=== PATIENT | female | born 1945 | race Two or more races ===

== ENCOUNTER 2022-11-17 12:26 | Outpatient (OUT) | payer MEDICARE, BC, SELFPAY ==
--- NOTE | 2022-11-17 12:45 | US_ITS ---
[address] [address] Patient Name: THI LINDSEY MRN: [id number] date: 1945 Sex: F Assigned Patient Location: US Current Patient Location: US Accession/Order Number: [id number] Exam Date: 11/17/2022 12:48 Report Date: 11/18/2022 06:31 At the request of: WEN FIGUEROA Procedure: US thyroid EXAMINATION: US thyroid HISTORY: Thyroid Nodule E04.1 COMPARISON: No relevant comparison available. FINDINGS: RIGHT LOBE: Homogeneous echotexture containing a 5 mm TR 4 nodule within superior pole. Lobe size: 4.0 x 1.7 x 1.3 cm LEFT LOBE: Homogeneous echotexture containing a 3 mm TR 4 nodule within superior pole and a 7 mm TR 2 nodule within mid body. Lobe size: 4.1 x 1.2 x 1.6 cm ISTHMUS: Normal size and echotexture. Thickness: 2 mm IMPRESSION: 1. Homogeneous thyroid gland containing a few small, not overtly suspicious nodules. Consider follow-up imaging in 2 years. TR4 (moderately suspicious): If > 1.0 cm Follow-up ultrasound in 1, 2, 3, and 5 years. If > 1.5 cm fine needle aspiration (FNA). TI-RADS 2: Benign nodules. Noticeably benign pattern (0% risk of malignancy) Electronically authenticated by: JAMIR SANCHEZ Date: 11/18/2022 06:31
[2022-11-17 14:31] LABS: Free T4 0.71 ng/dL (0.76-1.46)
[2022-11-17 14:35] LABS: Thyroid Stimulating Hormone 1.177 uIU/mL (0.358-3.740)
== END 2022-11-17 12:27 ==
LOC: US 12:26
PROVIDERS: PCP Nurse Practitioner Primary Care; Visit Provider Nurse Practitioner Primary Care
DX: E04.1 Nontoxic single thyroid nodule (principal)
CPT/HCPCS: 36415; 76536; 84439; 84443

== ENCOUNTER 2022-12-29 08:35 | Outpatient (OUT) | payer MEDICARE, BC, SELFPAY | END 2022-12-29 08:36 | disposition home or self-care (01) | LOC: HEMC 08:45 | PROVIDERS: PCP Nurse Practitioner Primary Care; Visit Provider Internal Medicine Hematology & Oncology | DX: C50.411 Malignant neoplasm of upper-outer quadrant of right female breast (principal); K90.9 Intestinal malabsorption, unspecified; D50.9 Iron deficiency anemia, unspecified | CPT/HCPCS: G0463 ==

== ENCOUNTER 2023-01-04 09:03 | Outpatient (RCR) | payer MEDICARE, BC, SELFPAY ==
[2023-01-04 08:55] VITALS: BP 124/77; PULSE 64; RESP 16; TEMP 36.6; O2SAT 94
--- NOTE | 2023-01-04 09:15 | PC.NURSE ---
0855: Pt. to [facility] amb. accompanied by . Seated in recliner. VSS. Relays history of extreme fatigue. Denies c/o pain, dyspnea or n/v. Using aseptic technique, #22 gauge IV initiated to left hand on first attempt without difficulty. Flushes easily without edema. Pt. tolerated without c/o. Awaiting med from pharmacy.
--- NOTE | 2023-01-04 09:34 | PC.NURSE ---
0923: IV Injectafer initiated at this time. Pt. given water and pillow. 0934: Pt. without c/o. Denies needs.
--- NOTE | 2023-01-04 09:48 | PC.NURSE ---
0944: IV Injectafer completed at this time without s&s of adverse reaction. IV d/c'd, pressure to site. 0945: Pt. d/c'd to home amb. with .
[2023-01-11 12:52] VITALS: BP 135/68; PULSE 88; RESP 18; TEMP 36.6; O2SAT 94
== END 2023-01-11 23:59 | disposition home or self-care (01) ==
LOC: INF 09:03
PROVIDERS: PCP Nurse Practitioner Primary Care; Visit Provider Internal Medicine Hematology & Oncology
DX: D50.9 Iron deficiency anemia, unspecified (principal); C50.411 Malignant neoplasm of upper-outer quadrant of right female breast; K90.9 Intestinal malabsorption, unspecified
CPT/HCPCS: 96365; 96366; J1439

== ENCOUNTER 2023-01-18 14:04 | Outpatient (OUT) | payer MEDICARE, BC, SELFPAY | END 2023-01-18 14:05 | disposition home or self-care (01) | LOC: PST 14:07 | PROVIDERS: PCP Nurse Practitioner Primary Care; Visit Provider Surgery | DX: Z01.818 Encounter for other preprocedural examination (principal); D50.9 Iron deficiency anemia, unspecified ==

== ENCOUNTER 2023-01-26 11:08 | Day surgery (SDC) | payer MEDICARE, BC, SELFPAY ==
[2023-01-26 11:54] VITALS: BP 150/81; PULSE 68; RESP 16; TEMP 36.6; O2SAT 97; BMI 35.3
[2023-01-26] MEDS: LACTATED RINGER'S SOLUTION 1,000 ML 50 ML IV (12:07)
[2023-01-26 13:10] VITALS: BP 114/65; PULSE 65; RESP 16; O2SAT 95
[2023-01-26 13:30] VITALS: BP 109/61; PULSE 71; RESP 16; O2SAT 98
--- NOTE | 2023-01-26 13:34 | PM.GSPRC ---
Date of procedure: 01/26/23 Indications for Procedure: This patient is a 77-year-old female who was recently diagnosed with significant iron deficiency anemia. She was initially referred for upper endoscopy and colonoscopy.the risks benefits options and potential complications of the procedure were discussed in detail with her and she agreed to proceed and consent was signed. Pre-op diagnosis: iron deficiency anemia Post-op diagnosis: other (#1 gastric ulcers, hiatal hernia #2 diverticulosis) Procedure: #1 EGD with biopsy #2 colonoscopy, incomplete Anesthesia: MAC Surgeon: Randall Hale Procedure Summary: The patient was brought to the endoscopy suite and placed in the supine upright position. Under MAC by block was placed. The fiberoptic endoscope was passed through the oropharynx into the esophagus. This was easily advanced into the stomach. The stomach was insufflated. Readily identified in the prepyloric region was a small ulceration. There is no blood or bleeding noted. The endoscope was then passed through the pylorus into the duodenum. The 1st and 2nd portions of the duodenum were unremarkable. The endoscope was then withdrawn into the stomach and retroflexed. Near the fundus of the stomach a larger similar appearing ulcer was also noted. This was also noted to have no bleeding. Patient did have a moderate size hiatal hernia also. Antral biopsies were then obtained ?2 for H. pylori. Both sites were hemostatic following this. The gastroesophageal junction. Grossly normal. The stomach was decompressed. The remainder of the esophagus appeared unremarkable on final trial endoscope and this portion of the procedure was ended. The patient was now placed in left lateral decubitus position for colonoscopy. With continued MAC the fiberoptic colonoscope was introduced into the rectum. This was subsequently advanced. At approximately 40-50 cm there is noted to be extensive diverticulosis as well as significant tortuosity. Despite multiple attempts with manipulation of the colonoscope abdominal pressure patient position changes and was unable to traverse this area and therefore further attempts I felt were contraindicated with the potential for colonic injury. I did not see any blood or bleeding in the segment of colon examined. Gradual thrombo-colonoscope was undertaken. Other than diverticular versus the remainder of the descending colon as well as anorectal canal were unremarkable. The patient tolerated the procedures well and was transferred to the recovery area in stable condition. Estimated blood loss (mL): 1 Specimens: antral biopsy ?2 Complications: No
== END 2023-01-26 13:50 | disposition home or self-care (01) ==
PROVIDERS: PCP Nurse Practitioner Primary Care; Visit Provider Surgery
PROC: (CPT 43239; principal; 2023-01-26 13:30)
DX: D50.9 Iron deficiency anemia, unspecified (principal); K29.50 Unspecified chronic gastritis without bleeding; Z79.82 Long term (current) use of aspirin; I10 Essential (primary) hypertension; Z85.3 Personal history of malignant neoplasm of breast; Z90.710 Acquired absence of both cervix and uterus; K57.30 Diverticulosis of large intestine without perforation or abscess without bleeding; K25.9 Gastric ulcer, unspecified as acute or chronic, without hemorrhage or perforation; K44.9 Diaphragmatic hernia without obstruction or gangrene
CPT/HCPCS: 43239; 45330; 88305; 88342; J2704

== ENCOUNTER 2023-02-05 08:04 | Outpatient (OUT) | payer MEDICARE, BC, SELFPAY ==
[2023-02-05 08:24] LABS: Basophils Percent Auto 0.7 % (0.2-2.0); Eosinophils Absolute Auto 0.3 10^3/uL (0.0-0.7); Eosinophils Percent Auto 4.3 % (0.9-7.0); Hematocrit 31.3 % (36.0-48.0); Hemoglobin 10.1 g/dL (12.0-16.0); Immature Granulocytes Abs Auto 0.01 10^3/uL (0.00-0.03); Immature Granulocytes Pct Auto 0.2 % (0.0-0.5); Lymphocytes Absolute Auto 1.6 10^3/uL (1.2-3.8); Lymphocytes Percent Auto 27.4 % (20.5-60.0); Mean Corpuscular HGB Conc 32.3 g/dL (29.9-35.2); Mean Corpuscular Hemoglobin 30.7 pg (26.7-34.0); Mean Corpuscular Volume 95.1 fL (81.0-99.0); Mean Platelet Volume 9.3 fL (9.5-13.5); Monocytes Absolute Auto 0.6 10^3/uL (0.3-0.8); Monocytes Percent Auto 10.1 % (1.7-12.0); Neutrophils Absolute Auto 3.4 10^3/uL (1.4-6.5); Neutrophils Percent Auto 57.3 % (43.0-75.0); Platelet Count 215 10^3/uL (150-450); Red Blood Count 3.29 10^6/uL (4.20-5.40); Red Cell Distribution Width 20.3 % (11.0-15.0); White Blood Count 5.9 10^3/uL (4.0-11.0)
[2023-02-05 08:39] LABS: Anion Gap 14.5; BUN Creatinine Ratio 17.3; Carbon Dioxide 28.3 mmol/L (21.0-32.0); Chloride 101 mmol/L (98-107); Estimated GFR (African America >60 (>=60); Estimated GFR (Non-African Ame 51 (>=60); Glucose 77 mg/dL (74-106); Potassium 3.8 mmol/L (3.5-5.1); Sodium 140 mmol/L (136-145)
== END 2023-02-05 08:05 | disposition home or self-care (01) ==
LOC: LAB 08:06
PROVIDERS: PCP Nurse Practitioner Primary Care
DX: R06.09 Other forms of dyspnea (principal); I27.20 Pulmonary hypertension, unspecified
CPT/HCPCS: 36415; 80048; 85025

== ENCOUNTER 2023-02-12 08:54 | Outpatient (OUT) | payer MEDICARE, BC, SELFPAY ==
[2023-02-12 10:26] LABS: Percent Iron Saturation 31.2 %
== END 2023-02-12 08:55 | disposition home or self-care (01) ==
LOC: LAB 09:03
PROVIDERS: PCP Nurse Practitioner Primary Care; Visit Provider Internal Medicine Hematology & Oncology
DX: C50.411 Malignant neoplasm of upper-outer quadrant of right female breast (principal); D50.9 Iron deficiency anemia, unspecified; K90.9 Intestinal malabsorption, unspecified
CPT/HCPCS: 36415; 82728; 83540; 83550

== ENCOUNTER 2023-02-16 08:36 | Outpatient (RCR) | payer MEDICARE, BC, SELFPAY | END 2023-03-13 23:59 | disposition home or self-care (01) | LOC: INF 08:36 | PROVIDERS: PCP Nurse Practitioner Primary Care; Visit Provider Internal Medicine Hematology & Oncology | DX: C50.411 Malignant neoplasm of upper-outer quadrant of right female breast (principal); D50.9 Iron deficiency anemia, unspecified; K90.9 Intestinal malabsorption, unspecified | CPT/HCPCS: G0463 ==

== ENCOUNTER 2023-02-24 07:43 | Outpatient (OUT) | payer MEDICARE, BC, SELFPAY ==
--- NOTE | 2023-02-24 07:46 | MM_ITS ---
Patient: THI LINDSEY Exam Date: 02/24/2023 : 1945 Gender:F Ordering : WEN BowmanCesar HENRY Admission #: [id number] Family : Order #: [id number] CLICK HERE TO VIEW EXAM RADIOLOGY REPORT PROCEDURE: MM TOMOSYNTHESIS SCREENING BI COMPARISON: MG MAMM GONZALEZ DIAG W CAD DIG, 11/23/2018. MG MAMM SCREEN 3D GONZALEZ CAD, 03/05/2022. INDICATIONS: Screening Calculator Name NCI Breast Cancer Risk Assessment Tool 5 Year Breast Cancer Risk n/a% Lifetime Breast Cancer Risk n/a% Personal Breast Cancer Yes, 2013 Personal Ovarian Cancer No Treatments lumpectomy, radiation and chemotherapy Family Cancers Grandmother-paternal with breast cancer at age 76; Father with unknown cancer at age ~72. LOCATION: [facility] BREAST COMPOSITION: Scattered areas fibroglandular density. FINDINGS: DIAGNOSTIC CATEGORY 2--BENIGN FINDING. NO CHANGE FROM COMPARISON. Scattered benign-appearing calcifications are present. Scattered benign-appearing lymph nodes are present. RIGHT BREAST: No significant suspicious finding. Asymmetrically small. Area of architectural distortion calcification upper outer quadrant, stable, postprocedural changes are favored. LEFT BREAST: No significant suspicious finding. RECOMMENDATIONS: ROUTINE MAMMOGRAM AND CLINICAL EVALUATION IN 12 MONTHS. PLEASE NOTE: A NORMAL MAMMOGRAM DOES NOT EXCLUDE THE POSSIBILITY OF BREAST CANCER. A CLINICALLY SUSPICIOUS PALPABLE LUMP SHOULD BE BIOPSIED. Dictated by: Michael Arndt MD on 02/24/2023 at 09:13 Approved by: Michael Arndt MD on 02/24/2023 at 09:15
== END 2023-02-24 07:44 | disposition home or self-care (01) ==
LOC: MAMMO 07:43
PROVIDERS: PCP Nurse Practitioner Primary Care; Visit Provider Nurse Practitioner Primary Care
DX: Z12.31 Encounter for screening mammogram for malignant neoplasm of breast (principal); Z80.9 Family history of malignant neoplasm, unspecified; Z80.3 Family history of malignant neoplasm of breast
CPT/HCPCS: 77063; 77067

== ENCOUNTER 2023-05-11 07:31 | Outpatient (OUT) | payer MEDICARE, BC, SELFPAY ==
[2023-05-11 07:59] LABS: Basophils Percent Auto 0.3 % (0.2-2.0); Eosinophils Absolute Auto 0.2 10^3/uL (0.0-0.7); Eosinophils Percent Auto 3.6 % (0.9-7.0); Hematocrit 32.8 % (36.0-48.0); Hemoglobin 10.6 g/dL (12.0-16.0); Lymphocytes Absolute Auto 1.2 10^3/uL (1.2-3.8); Lymphocytes Percent Auto 19.5 % (20.5-60.0); Mean Corpuscular HGB Conc 32.3 g/dL (29.9-35.2); Mean Corpuscular Hemoglobin 32.9 pg (26.7-34.0); Mean Corpuscular Volume 101.9 fL (81.0-99.0); Mean Platelet Volume 9.8 fL (9.5-13.5); Monocytes Absolute Auto 0.4 10^3/uL (0.3-0.8); Monocytes Percent Auto 7.3 % (1.7-12.0); Neutrophils Absolute Auto 4.1 10^3/uL (1.4-6.5); Neutrophils Percent Auto 69.3 % (43.0-75.0); Platelet Count 218 10^3/uL (150-450); Red Blood Count 3.22 10^6/uL (4.20-5.40); Red Cell Distribution Width 12.2 % (11.0-15.0); White Blood Count 5.9 10^3/uL (4.0-11.0)
[2023-05-11 08:16] LABS: Erythrocyte Sedimentation Rate 37 mm/hr (<=30)
[2023-05-11 09:19] LABS: Alanine Aminotransferase 23 U/L (14-59); Alkaline Phosphatase 90 U/L (46-116); Anion Gap 11.3; Aspartate Amino Transferase 19 U/L (15-37); BUN Creatinine Ratio 17.9; Bilirubin Total 0.5 mg/dL (0.2-1.0); Chloride 103 mmol/L (98-107); Estimated GFR (African America >60 (>=60); Estimated GFR (Non-African Ame 57 (>=60); Glucose 99 mg/dL (74-106); Lactate Dehydrogenase 165 U/L (81-234); Potassium 4.3 mmol/L (3.5-5.1); Sodium 140 mmol/L (136-145); Total Protein 7.1 g/dL (6.4-8.2)
[2023-05-11 09:20] LABS: Albumin Globulin Ratio 1.1; Albumin Level 3.7 g/dL (3.4-5.0); Globulin 3.4 g/dL
[2023-05-11 09:21] LABS: C Reactive Protein 0.73 mg/dL (<=0.30)
[2023-05-11 11:55] LABS: Percent Iron Saturation 31.8 %
[2023-05-12 15:09] LABS: Hgb A 97.7 % (96.4-98.8); Hgb A2 2.3 % (1.8-3.2)
[2023-08-02 14:29] LABS: Reticulocyte Count 1.86 % (0.60-3.10)
== END 2023-05-11 07:32 | disposition home or self-care (01) ==
LOC: LAB 07:32
PROVIDERS: PCP Nurse Practitioner Primary Care; Visit Provider Internal Medicine Hematology & Oncology
DX: C50.411 Malignant neoplasm of upper-outer quadrant of right female breast (principal); D64.9 Anemia, unspecified; D50.9 Iron deficiency anemia, unspecified; K90.9 Intestinal malabsorption, unspecified
CPT/HCPCS: 36415; 80053; 82607; 82728; 83540; 83550; 83615; 85025; 85045; 85652; 86140

== ENCOUNTER 2023-05-18 07:44 | Outpatient (RCR) | payer MEDICARE, BC, SELFPAY | END 2023-05-18 09:44 | disposition home or self-care (01) | LOC: INF 07:44 | PROVIDERS: PCP Nurse Practitioner Primary Care; Visit Provider Internal Medicine Hematology & Oncology | DX: D50.9 Iron deficiency anemia, unspecified (principal); D64.9 Anemia, unspecified; K90.9 Intestinal malabsorption, unspecified; Z85.3 Personal history of malignant neoplasm of breast; Z85.42 Personal history of malignant neoplasm of other parts of uterus; Z90.711 Acquired absence of uterus with remaining cervical stump | CPT/HCPCS: G0463 ==

== ENCOUNTER 2023-08-02 06:15 | Outpatient (OUT) | payer MEDICARE, SELFPAY ==
--- OUTSIDE RECORDS SUMMARY | 2023-08-02 06:21 | XMS_ITS | CCD ---
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 Name Role Phone KENZIE ALMONTE Unavailable Unavailable SUNDHEIMER, MEGHANN B Unavailable Unavailable SUNDHEIMER, MEGHANN B Unavailable Unavailable BRIDGER PARADA Unavailable Unavailabl e LAKSHMIPATHY ., NARIZZYATH Attending Natasha vailable SHAMMO, ADI Primary Care Unavailable LAKSHMIPATHY ., DAINA Admitting Natasha vailable LAKSHMIPATHY ., DAINA Consulting Natasha vailable WILDER ., DR BEAU Galvan Admitting Unavailable MCLEAN ., DARION Consulting Unavailable SHAMMO, ADI Primary Care Unavailable WILDER ., DR BEAU Galvan Attending Unavailable WILDER ., DR BEAU Galvan Attending Unavailable WILDER ., DR BEAU Galvan Admitting Unavailable SHAMMO, ADI Primary Care Unavailable WILDER ., DR BEAU Galvan Consulting Unavailable WILDER ., DR BEAU Galvan Attending Unavailable WILDER ., DR BEAU Galvan Admitting Unavailable SHAMMO, ADI Primary Care Unavailable WILDER ., DR BEAU Galvan Consulting Unavailable MCLEAN ., DARION Consulting Unavailable SHAMMO, ADI Attending Unavailable SHAMMO, ADI Admitting Unavailable SHAMMO, ADI Primary Care Unavailable ZIEBER, DR JAMIR Amaya Consulting Unavailable TERRENCE ALBERTO Consulting Unavailable SHAMMO, ADI Consulting Unavailable SHAMMO, ADI Consulting Unavailable SHAMMO, ADI Attending Unavailable SHAMMO, ADI Admitting Unavailable SHAMMO, ADI Primary Care Unavailable WILDER ., DR BEAU Galvan Admitting Unavailable WILDER ., DR BEAU Galvan Consulting Unavailable WILDER ., DR BEAU Galvan Attending Unavailable SHAMMO, ADI Primary Care Unavailable SHAMMO, ADI Primary Care Unavailable SHAMMO, ADI Attending Unavailable SHAMMO, ADI Admitting Unavailable ZIEBER, DR JAMIR Amaya Consulting Unavailable SHAMMO, ADI Consulting Unavailable MISC, DR CABRERA Attending Unavailable FRANKLIN, DR JOSE RAFAEL Mendes Consulting Unavailable [facility] [place] Admitting Unavailable [facility] [place] Consulting Unavailable TINA ., DR BEAU Galvan Attending Unavailable TINA ., DR BEAU Galvan Admitting Unavailable [facility] Unavailable TINA ., DR BEAU Galvan Consulting Unavailable TINA ., DR BEAU Galvan Attending Unavailable TINA ., DR BEAU Galvan Admitting Unavailable [facility] Unavailable TINA ., DR BEAU Galvan Consulting Unavailable TINA ., DR BEAU Galvan Admitting Unavailable WILDER ., DR BEAU Galvan Attending Unavailable WILDER ., DR BEAU Galvan Consulting Unavailable [facility] Care Unavailable NKECHI ALLEN Consulting Unavailable [facility], [place] Primary Care Provider Allergies Allergy Classification Reported Allergen(s) Allergy Type Date of Onset Reaction(s) Facility (1 source) Hay Fever And Allergy Relief Propensity to adverse reactions to drug 06-20-2014 [facility] (1 source) Other Propensity to adverse reactions 12-24-2015 [facility] Medications Current Medications Medication Drug Class(es) Dates Sig (Normalized) Sig (Original) ALPRAZolam 0.25 mg oral tablet (1 source) Benzodiazepine Start: 11-14-2020 take 1 tablet by mouth once daily ALPRAZolam (XANAX) 0.25 mg tablet Take 1 tablet (0.25 mg total) by mouth nightly. 0 11/14/2020 Active ARIPiprazole 2 mg oral tablet (1 source) Atypical Antipsychotic take 1 tablet by mouth in the morning ARIPiprazole (ABILIFY) 2 mg tablet Take 1 tablet (2 mg total) by mouth in the morning. 0 Active hydroCHLOROthiazide 25 mg / lisinopril 20 mg oral tablet (2 sources) Thiazide Diuretic, Angiotensin Converting Enzyme Inhibitor Start: 03-05-2023 take 0.5 tablet by mouth once in the morning lisinopril-hydro CHLOROthiazide (PRINZIDE,ZESTOR ETIC) 20-25 mg per tablet Take 0.5 tablets by mouth in the morning and 0.5 tablets before bedtime. 90 tablet 3 03/05/2023 Active Start: 12-11-2022 take 10-12.5 mg by mouth once at bedtime lisinopril-hydroCHLOROthiazide (PRINZIDE,ZESTORETIC) 10-12.5 mg per tablet Take 1 tablet by mouth in the morning and at bedtime. 180 tablet 3 12/11/2022 Active lansoprazole 15 mg disintegrating oral tablet (1 source) Proton Pump Inhibitor take 1 tablet by mouth in the morning lansoprazole (PREVACID SOLUTAB) 15 mg disintegrating tablet Indications: heartburn Take 1 tablet (15 mg total) by mouth in the morning. Indications: heartburn. 0 Active levocetirizine dihydrochloride 5 mg oral tablet (1 source) Histamine-1 Receptor Antagonist take 1 tablet by mouth once daily levocetirizine (XYZAL) 5 mg tablet Take 1 tablet (5 mg total) by mouth nightly. 0 Active besxnudh-mpqf-YO-calciu m &mins (THERAGRAN-M) 9 mg iron-400 mcg tablet (1 source) dogvygti-xtlp-UX -calc ium &mins (THERAGRAN-M) 9 mg iron-400 mcg tablet Indications: mineral deficiency , vitamin deficiency Take 1 tablet by mouth in the morning. Indications: lack in minerals, vitamin deficiency. 0 Active pravastatin sodium 20 mg oral tablet (1 source) HMG-CoA Reductase Inhibitor Start: 09-18-19 22 pravastatin (PRAVACHOL) 20 mg tablet Indications: Dyslipidemia TAKE 1 TABLET DAILY 90 tablet 3 09/17/2021 Active traMADol hydrochloride 50 mg oral tablet (1 source) Opioid Agonist take 1 tablet by mouth every six hours as needed for pain traMADoL (ULTRAM) 50 mg tablet Take 1 tablet (50 mg total) by mouth every 6 (six) hours as needed for pain. 0 Active vitamin e 90 mg oral capsule (1 source) take 2 capsules by mouth in the morning vitamin E 200 units capsule Indications: vitamin E deficiency Take 2 capsules (400 Units total) by mouth in the morning. Indications: deficiency of vitamin E. 0 Active Problems Active Problems Problem Classification Problem Date Documented Date Episodic/Chronic Cancer of breast (1 source) Malignant neoplasm of female breast; Translations: [Malignant neoplasm of unspecified site of unspecified female breast] Onset: 01-21-2016 01-21-2016 Chronic Cataract (1 source) Artificial lens present; Translations: [Presence of intraocular lens] Onset: 05-26-2016 05-26-2016 Chronic Conditions associated with dizziness or vertigo (1 source) Dizziness and giddiness; Translations: [DIZZINESS AND GIDDINESS] Onset: 11-06-2022 Episodic Disorders of lipid metabolism (1 source) Dyslipidemia; Translations: [Hyperlipidemia, unspecified] Onset: 12-24-2015 12-24-2015 Chronic Esophageal disorders (1 source) Gastro-esophageal reflux disease with esophagitis; Translations: [Gastroesophageal reflux disease with esophagitis] Onset: 12-05-2016 12-05-2016 Chronic Essential hypertension (2 sources) Essential (primary) hypertension; Translations: [Benign essential hypertension] Onset: 12-24-2015 12-24-2015 Chronic Headache; including migraine (1 source) Tension-type headache; Translations: [Tension-type headache, unspecified, not intractable] Onset: 02-27-2018 02-27-2018 Chronic Malaise and fatigue (1 source) Chronic fatigue, unspecified; Translations: [CHRONIC FATIGUE UNSPECIFIED] Onset: 11-06-2022 Chronic Mood disorders (1 source) Depressive disorder; Translations: [Depressive disorder] Onset: 10-01-2017 10-01-2017 Chronic Other acquired deformities (1 source) Other forms of scoliosis, lumbar region; Translations: [OTHER FORMS SCOLIOSIS LUMBAR REGION] Onset: 06-25-2022 Chronic Other acquired deformities (1 source) Scoliosis of lumbar spine; Translations: [Scoliosis, unspecified] Onset: 06-01-2022 06-01-2022 Chronic Other connective tissue disease (1 source) Other muscle spasm; Translations: [OTHER MUSCLE SPASM] Onset: 09-30-2022 Episodic Other lower respiratory disease (4 sources) Other forms of dyspnea; Translations: [OTHER FORMS OF DYSPNEA] Onset: 11-05-2022 Episodic Other lower respiratory disease (1 source) Orthopnea; Translations: [ORTHOPNEA] Onset: 11-06-2022 Episodic Other nervous system disorders (1 source) Other chronic pain; Translations: [OTHER CHRONIC PAIN] Onset: 09-30-2022 Chronic Other nervous system disorders (1 source) Thoracic outlet syndrome; Translations: [Brachial plexus disorders] Onset: 05-17-2017 05-17-2017 Chronic Other nutritional; endocrine; and metabolic disorders (1 source) Severe obesity; Translations: [Morbid (severe) obesity due to excess calories] Onset: 09-04-2016 08-21-2019 Chronic Pulmonary heart disease (1 source) Pulmonary hypertension; Translations: [Pulmonary hypertension, unspecified] Onset: 12-11-2022 12-11-2022 Chronic Spondylosis; intervertebral disc disorders; other back problems (7 sources) Spondylosis without myelopathy or radiculopathy, lumbar region; Translations: [Other intervertebral disc degeneration, lumbar region] Onset: 06-01-2022 Chronic Suicide and intentional self-inflicted injury (1 source) Suicidal ideations; Translations: [Suicidal ideations] Onset: 09-30-2017 Episodic Unclassified (4 sources) LOW BACK PAIN, UNSPECIFIED; Translations: [LOW BACK PAIN, UNSPECIFIED] Onset: 09-08-2022 Past or Other Problems Problem Classification Problem Date Documented Date Episodic/Chronic Cancer of breast (1 source) Personal history of malignant neoplasm of breast; Translations: [Personal history of malignant neoplasm of breast] Onset: 04-27-2017 Episodic Disorders of teeth and jaw (1 source) Temporomandibular joint disorder; Translations: [Unspecified temporomandibular joint disorder, unspecified side] Onset: 01-21-2016 01-21-2016 Episodic Menopausal disorders (1 source) Menopausal syndrome; Translations: [Menopausal and female climacteric states] Onset: 02-06-2016 Resolved: 02-28-2020 02-28-2020 Chronic Mood disorders (1 source) Mood disorders Onset: 08-18-2021 08-18-2021 Other connective tissue disease (1 source) Sarcopenia; Translations: [SARCOPENIA] Onset: 06-25-2022 Episodic Other eye disorders (1 source) Dry eyes; Translations: [Dry eye syndrome of bilateral lacrimal glands] Onset: 05-26-2016 Resolved: 02-28-2020 02-28-2020 Episodic Other non-traumatic joint disorders (1 source) Pain in right knee; Translations: [Pain in joint, lower leg] Onset: 06-09-2016 06-09-2016 Episodic Other screening for suspected conditions (not mental disorders or infectious disease) (7 sources) Encounter for screening for cardiovascular disorders; Translations: [Encounter for screening for lipoid disorders] Onset: 03-05-2022 Episodic Residual codes; unclassified (1 source) Family history of malignant neoplasm of breast; Translations: [FAMILY HX MALIG NEOPLASM OF BREAST] Onset: 03-06-2022 Episodic Residual codes; unclassified (1 source) Family history of malignant neoplasm, unspecified; Translations: [FAM HX MALIGNANT NEOPLASM UNS] Onset: 03-06-2022 Episodic Spondylosis; intervertebral disc disorders; other back problems (6 sources) Sciatica, right side; Translations: [Chronic low back pain] Onset: 12-24-2015 Episodic Sprains and strains (1 source) Sprain of shoulder rotator cuff; Translations: [Sprain of right rotator cuff capsule, initial encounter] Onset: 03-10-2019 03-10-2019 Episodic Unclassified (1 source) LOW BACK PAIN, UNSPECIFIED; Translations: [LOW BACK PAIN, UNSPECIFIED] Onset: 09-24-2022 Unclassified (1 source) Onset: 06-01-2022 06-01-2022 Results Test Name Value Interpretation Reference Range Facility US CAROTID ART BILon 023 US CAROTID ART GONZALEZ EXAMINATION: US CORREA TID ART GONZALEZ HISTORY: Dizziness and giddiness , hypertension, hypercholesterolemia COMPARISON: No relevant comparison available. TECHNIQUE: Duplex Doppler ultrasound analysis of carotid and vertebral arteries. . Bilateral carotid arterial duplex examination was performed using B-mode, color flow and spectral analysis. Carotid stenosis is reported according to validated velocity parameters, similar to NASCET criteria. FINDINGS: RIGHT CAROTID ARTERY: No visible stenosis or significant plaque. RIGHT VERTEBRAL: Antegrade flow. Subclavian: PSV: 70.3 cm/s EDV: 0.0 cm/s CCA: Prox: PSV: 87.2 cm/s EDV: 18.1 cm/s Mid: PSV: 63.8 cm/s EDV: 14.2 cm/s Distal: PSV: 54.6 cm/s EDV: 14.2 cm/s BULB: PSV: 48.8 cm/s EDV: 13.9 cm/s ICA: Prox: PSV: 72.4 cm/s EDV: 17.5 cm/s Mid: PSV: 209.4 cm/s EDV: 46.2 cm/s Distal: PSV: 102.7 cm/s EDV: 34.7 cm/s ECA: PSV: 62.5 cm/s EDV: 9.0 cm/s VERTEBRAL: PSV: 67.7 cm/s EDV: 14.2 cm/s ICA/CCA ratio: PSV: 3.8 EDV: 3.3 LEFT CAROTID ARTERY: No visible stenosis or significant plaque. LEFT VERTEBRAL: Antegrade flow. Subclavian: PSV: 133.8 cm/s EDV: 0.0 cm/s CCA: Prox: PSV: 84.6 cm/s EDV: 17.5 cm/s Mid: PSV: 80.6 cm/s EDV: 25.4 cm/s Distal: PSV: 78.7 cm/s EDV: 25.4 cm/s BULB: PSV: 78.7 cm/s EDV: 25.4 cm/s ICA: Prox: PSV: 106.2 cm/s EDV: 33.3 cm/s Mid: PSV: 143.8 cm/s EDV: 36.9 cm/s Distal: PSV: 146.1 cm/s EDV: 46.2 cm/s ECA: PSV: 104.3 cm/s EDV: 9.1 cm/s VERTEBRAL: PSV: 64.6 cm/s EDV: 20.6 cm/s ICA/CCA ratio: PSV: 1.9 EDV: 1.8 IMPRESSION: 1. No significant atherosclerotic disease or vessel narrowing. 2. 0-49% flow stenosis within the right left carotid arteries. 3. Left thyroid lobe 9 mm hypoechoic nonspecific nodule. Consider follow-up ultrasound of thyroid gland. Spectral Doppler US Thresholds Stenosis (%) PSV (cm/sec) VICA/VCCA 0-49 <150 <2.5 50-69 150-225 2.5-4.0 >70 >225 >4.0 Electronically authenticated by: JAMIR SANCHEZ Date: 2022-11-06 05:46 Normal [facility] BNPon 11-05-2022 Natriuretic peptide B (Bld) [Mass/Vol] 55.0 pg/mL Normal <=1,800.0 [facility] Comment on above: Performed By: #### H STROPN, CMP, BNP, MG #### [facility] [address] [place] [address] Dr. Linda Park ECHOCARDIO M/2D COMPLETEon 0 11-05-2022 ECHOCARDIO M/2D COMPLETE Patient: ELLI LINDSEY Exam Date: 11/05/2022 : 1945 Gender:F Ordering : ADI FIGUEROA Admission #: [id number] Family : Order #: [id number] CLICK HERE TO VIEW EXAM ECHOCARDIOGRAM REPORT PROCEDURE: CARDIO PULMONARY ECHOCARDIO M/2D COMP INDICATIONS: Dyspnea on exertion, hypertension COMPARISON: None. DESCRIPTION: COMPLETE ECHOCARDIOGRAM Real-time transthoracic echocardiography with 2D, M-mode, spectral and color flow Doppler performed. QUALITY: Technical quality was good. LEFT VENTRICLE: Normal chamber size. Thickened septal wall. LV EF: Global left ventricular systolic function is normal; visually estimated ejection fraction is 55 to 60%. No significant wall motion abnormalities. DIASTOLIC: Diastolic function is indeterminate. ATRIAL SEPTUM: Visually appears intact. LEFT ATRIUM: Moderately enlarged. RIGHT ATRIUM: Moderate dilatation. RIGHT VENTRICLE: Normal chamber size. Normal right ventricular systolic function. TRICUSPID VALVE: Normal mobility and thickness. Moderate regurgitation. Doppler studies reveal severely (>60) elevated right sided pressures. RVSP 67 mmHg MITRAL VALVE: Normal mobility and thickness. No evidence of mitral valve stenosis. There is no mitral annular calcification. Mild mitral regurgitation. AORTIC VALVE: Normal trileaflet appearance. No visible sclerosis. Normal leaflet mobility. No evidence of aortic valve stenosis. Trivial aortic regurgitation. AORTIC ROOT: Normal diameter and appearance. PULMONIC VALVE: Normal thickness and mobility. No stenosis. Trivial regurgitation. PERICARDIUM: No evidence of pericardial effusion. IVC: Collapses with inspirations. CONCLUSION: 1. Global left ventricular systolic function is normal; visually estimated ejection fraction is 55 to 60%. No significant wall motion abnormalities. 2. Diastolic function is indeterminate. 3. Biatrial enlargement. 4. Right ventricle is normal in size and systolic function. 5. Moderate tricuspid regurgitation. 6. Severely elevated right-sided pressures; RVSP 67 mmHg. 7. Mild mitral regurgitation. Adult Echocardiography Procedure Report Left Ventricle Left Atrium LA Volume Index (2D A2C): 78.68 ml, 78.68 ml Mitral Valve Right Ventricle Aorta Aortic Valve AoV Area (Peak Nahid): 2.50 cm2, 2.50 cm2 AoV Area (VTI): 2.58 cm2, 2.58 cm2 Tricuspid Valve Pulmonic Valve Peak Velocity: 1.19 m/s, 1.03 m/s Peak Gradient: 5.68 mm[Hg], 4.23 mm[Hg] Right Atrium Dictated by: Tk Lopez M.D. on 11/08/2022 at 15:12 Approved by: Tk Lopez M.D. on 11/08/2022 at 15:17 Normal [facility] MAGNESIUMon 11-05-2022 Magnesium [Mass/Vol] 2.0 mg/dL Normal 1.8-2.4 [facility] Comment on above: Performed By: #### H STROPN, CMP, BNP, MG #### [facility] [address] [place] [address] Dr. Linda Park PROF 14(COMP METB)on 023 Albumin [Mass/Vol] 3.7 g/dL Normal 3.4-5.0 [facility] Comment on above: Performed By: #### H STROPN, CMP, BNP, MG #### [facility] [address] [place] [address] Dr. Linda Park Albumin/Globulin [Mass ratio] 1.1 {ratio} Normal [facility] Comment on above: Performed By: #### H STROPN, CMP, BNP, MG #### [facility] [address] [address] [address] Linda Park ALP [Catalytic activity/Vol] 84 U/L Normal 46-116 [facility] Comment on above: Performed By: #### H STROPN, CMP, BNP, MG #### [facility] [address] [place] [address] Dr. Linda Park ALT [Catalytic activity/Vol] 17 U/L Normal 14-59 [facility] Comment on above: Performed By: #### H STROPN, CMP, BNP, MG #### [facility] [address] [place] [address] Dr. Linda Park Anion gap [Moles/Vol] 10.8 mmol/L Normal [facility] Comment on above: Performed By: #### H STROPN, CMP, BNP, MG #### [facility] [address] [place] [address] Dr. Linda Park AST [Catalytic activity/Vol] 15 U/L Normal 15-37 [facility] Comment on above: Performed By: #### H STROPN, CMP, BNP, MG #### [facility] [address] [address] [address] Linda Park Bilirubin [Mass/Vol] 0.2 mg/dL Normal 0.2-1.0 [facility] Comment on above: Performed By: #### H STROPN, CMP, BNP, MG #### [facility] [address] [address] [address] Linda Park Calcium [Mass/Vol] 9.1 mg/dL Normal 8.5-10.1 [facility] Comment on above: Performed By: #### H STROPN, CMP, BNP, MG #### [facility] [address] [address] [address] Linda Park Chloride [Moles/Vol] 104 mmol/L Normal 98-107 [facility] Comment on above: Performed By: #### H STROPN, CMP, BNP, MG #### [facility] [address] [place] [address] Dr. Linda Park CO2 [Moles/Vol] 30.8 mmol/L Normal 21.0-32.0 [facility] Comment on above: Performed By: #### H STROPN, CMP, BNP, MG #### [facility] [address] [address] [address] Linda Park Creatinine [Mass/Vol] 0.94 mg/dL Normal 0.55-1.02 [facility] Comment on above: Performed By: #### H STROPN, CMP, BNP, MG #### [facility] [address] [place] [address] Dr. Linda Park EGFR-AF GRENADIAN >60 Normal >=60 [facility] Comment on above: Performed By: #### H STROPN, CMP, BNP, MG #### [facility] [address] [address] [address] Linda Park EGFR-NON AF GRENADIAN 58 mL/min/1.73m2 Critically low >=60 [facility] Comment on above: Performed By: #### H STROPN, CMP, BNP, MG #### [facility] [address] [address] [address] Linda Park Globulin (S) [Mass/Vol] 3.5 g/dL Normal [facility] Comment on above: Performed By: #### H STROPN, CMP, BNP, MG #### [facility] [address] [address] [address] Linda Park Glucose [Mass/Vol] 78 mg/dL Normal 74-106 [facility] Comment on above: Performed By: #### H STROPN, CMP, BNP, MG #### [facility] [address] [place] [address] Dr. Linda Park Potassium [Moles/Vol] 4.6 mmol/L Normal 3.5-5.1 [facility] Comment on above: Performed By: #### H STROPN, CMP, BNP, MG #### [facility] [address] [place] [address] Dr. Linda Park Protein [Mass/Vol] 7.2 g/dL Normal 6.4-8.2 [facility] Comment on above: Performed By: #### H STROPN, CMP, BNP, MG #### [facility] [address] [place] [address] Dr. Linda Park Sodium [Moles/Vol] 141 mmol/L Normal 136-145 [facility] Comment on above: Performed By: #### H STROPN, CMP, BNP, MG #### [facility] [address] [place] [address] Dr. Linda Park Urea nitrogen [Mass/Vol] 17.0 mg/dL Normal 7.0-18.0 [facility] Comment on above: Performed By: #### H STROPN, CMP, BNP, MG #### [facility] [address] [place] [address] Dr. Linda Park Urea nitrogen/Creatinine [Mass ratio] 18.1 mg/mg Normal [facility] Comment on above: Performed By: #### H STROPN, CMP, BNP, MG #### [facility] [address] [place] [address] Dr. Linda Park TROPONIN, HIGH SENSITIVITYon 11-05-2022 HSTROP 9.2 pg/mL Normal 4.0-51.3 [facility] Comment on above: Result Comment: CUT- OFF POINTS HAVE BEEN ESTABLISHED BASED ON THE FOURTH UNIVERSAL DEFINITIONS OF MYOCARDIAL INFARCTION. THE UPPER REFERENCE LIMIT (URL) OF TROPONIN, DEFINED THE 99TH PERCENTILE OF cTnI DISTRIBUTION IN A REFERENCE POPULATION, HAS BEEN CONFIRMED THE DECISION THRESHOLD FOR RI DIAGNOSIS. Performed By: #### H STROPN, CMP, BNP, MG #### [facility] [address] [address] [address] Linda Park XR CHEST 2 Von 11-05-2022 XR CHEST 2 V EXAM: XR CHEST 2 V HISTORY: Dyspnea; technologist notes state shortness of breath with exertion and dizziness when bending over for 3 months. COMPARISON: 09/26/2020. TECHNIQUE: PA and lateral views of the chest performed. FINDINGS: The trachea is normal. The cardiac silhouette is mildly prominent however less prominent compared to the previous examination which was a AP portable technique. There is mild atheromatous calcification at the aortic arch. There is a moderate-sized hiatal hernia. There is mild linear parenchymal scar at the left lung base. There is no consolidation or infiltrate. There is no pleural effusion or pulmonary vascular congestion. There is no pneumothorax. The bony structures are osteopenic. There is mild S-shaped scoliosis. IMPRESSION: There is no acute cardiopulmonary process. Mild linear parenchymal scar at the left lung base. Electronically authenticated by: TERRENCE ALBERTO Date: 2022-11-05 18:32 Normal [facility] HEMOGRAM AND PLATELon 2022 Hematocrit (Bld) [Volume fraction] 27.8 % Critically low 36.0-48.0 [facility] Comment on above: Performed By: #### H STROPN, CMP, BNP, MG #### [facility] [address] [address] [address] Linda Park Hemoglobin (Bld) [Mass/Vol] 8.8 g/dL Critically low 12.0-16.0 [facility] Comment on above: Performed By: #### H STROPN, CMP, BNP, MG #### [facility] [address] [address] [address] Linda Park MCH (RBC) [Entitic mass] 29.0 pg Normal 26.7-34.0 [facility] Comment on above: Performed By: #### H STROPN, CMP, BNP, MG #### [facility] [address] [place] [address] Dr. Linda Park MCHC (RBC) [Mass/Vol] 31.7 g/dL Normal 29.9-35.2 [facility] Comment on above: Performed By: #### H STROPN, CMP, BNP, MG #### [facility] [address] [place] [address] Dr. Linda Park MCV (RBC) [Entitic vol] 91.7 fL Normal 81.0-99.0 [facility] Comment on above: Performed By: #### H STROPN, CMP, BNP, MG #### [facility] [address] [place] [address] Dr. Linda Park PLT 217 103/ul Normal 150-450 [facility] Comment on above: Performed By: #### H STROPN, CMP, BNP, MG #### [facility] [address] [place] [address] Dr. Linda Park RBC 3.03 106/ul Critically low 4.20-5.40 [facility] Comment on above: Performed By: #### H STROPN, CMP, BNP, MG #### [facility] [address] [place] [address] Dr. Linda Park WBC 6.4 103/ul Normal 4.0-11.0 [facility] Comment on above: Performed By: #### H STROPN, CMP, BNP, MG #### [facility] [address] [place] [address] Dr. Linda Park LIPID PROFILEon 08-24-2022 CHOL-HDL RATIO NORM SEE BELOW Normal [facility] Comment on above: Result Comment: 3.3 - 4.4 LOW RISK 4.4 - 7.1 AVERAGE RISK 7.1 - 11.0 MODERATE RISK >11.0 HIGH RISK Performed By: #### H STROPN, CMP, BNP, MG #### [facility] [address] [place] [address] Dr. Linda Park Cholesterol [Mass/Vol] 166 mg/dL Normal <=200 [facility] Comment on above: Performed By: #### H STROPN, CMP, BNP, MG #### [facility] [address] [address] [address] Linda Park Cholesterol in HDL [Mass/Vol] 54 mg/dL Normal 40-60 [facility] Comment on above: Performed By: #### H STROPN, CMP, BNP, MG #### [facility] [address] [address] [address] Linda Park Cholesterol in LDL [Mass/Vol] 70.8 mg/dL Normal [facility] Comment on above: Performed By: #### H STROPN, CMP, BNP, MG #### [facility] [address] [address] [address] Linda Park Cholesterol.total/C holesterol in HDL [Mass ratio] 3.1 {ratio} Normal [facility] Comment on above: Performed By: #### H STROPN, CMP, BNP, MG #### [facility] [address] [address] [address] Linda Park HDL NORMAL > or = 60 mg/dl - LO W CARDIOVASCULAR RISK <40 mg/dl - HIGH CARDIOVASCULAR RISK Normal [facility] Comment on above: Performed By: #### H STROPN, CMP, BNP, MG #### [facility] [address] [address] [address] Linda Park LDL CALC NORMAL SEE BELOW Normal [facility] Comment on above: Result Comment: <100 mg/dl OPTIMAL 100 - 129 mg/dl NEAR OR ABOVE OPTIMAL 130 - 159 mg/dl BORDERLINE HIGH 160 - 189 mg/dl HIGH >190 mg/dl VERY HIGH Performed By: #### H STROPN, CMP, BNP, MG #### [facility] [address] [address] [address] Linda Park Triglyceride [Mass/Vol] 206 mg/dL Critically high <=150 [facility] Comment on above: Performed By: #### H STROPN, CMP, BNP, MG #### [facility] [address] [address] [address] Linda Park VLDL CALC 41.2 mg/dL Normal [facility] Comment on above: Performed By: #### H STROPN, CMP, BNP, MG #### [facility] [address] [place] [address] Dr. Linda Park PROF 14(COMP METB)on 023 Albumin [Mass/Vol] 3.7 g/dL Normal 3.4-5.0 [facility] Comment on above: Performed By: #### H STROPN, CMP, BNP, MG #### [facility] [address] [place] [address] Dr. Linda Park Albumin/Globulin [Mass ratio] 1.1 {ratio} Normal [facility] Comment on above: Performed By: #### H STROPN, CMP, BNP, MG #### [facility] [address] [place] [address] Dr. Linda Park ALP [Catalytic activity/Vol] 84 U/L Normal 46-116 [facility] Comment on above: Performed By: #### H STROPN, CMP, BNP, MG #### [facility] [address] [place] [address] Dr. Linda Park ALT [Catalytic activity/Vol] 17 U/L Normal 14-59 [facility] Comment on above: Performed By: #### H STROPN, CMP, BNP, MG #### [facility] [address] [place] [address] Dr. Linda Park Anion gap [Moles/Vol] 11.8 mmol/L Normal [facility] Comment on above: Performed By: #### H STROPN, CMP, BNP, MG #### [facility] [address] [place] [address] Dr. Linda Park AST [Catalytic activity/Vol] 19 U/L Normal 15-37 [facility] Comment on above: Performed By: #### H STROPN, CMP, BNP, MG #### [facility] [address] [place] [address] Dr. Linda Park Bilirubin [Mass/Vol] 0.4 mg/dL Normal 0.2-1.0 [facility] Comment on above: Performed By: #### H STROPN, CMP, BNP, MG #### [facility] [address] [place] [address] Dr. Linda Park Calcium [Mass/Vol] 9.5 mg/dL Normal 8.5-10.1 [facility] Comment on above: Performed By: #### H STROPN, CMP, BNP, MG #### [facility] [address] [address] [address] Linda Park Chloride [Moles/Vol] 104 mmol/L Normal 98-107 [facility] Comment on above: Performed By: #### H STROPN, CMP, BNP, MG #### [facility] [address] [address] [address] Linda Park CO2 [Moles/Vol] 28.6 mmol/L Normal 21.0-32.0 [facility] Comment on above: Performed By: #### H STROPN, CMP, BNP, MG #### [facility] [address] [place] [address] Dr. Linda Park Creatinine [Mass/Vol] 0.87 mg/dL Normal 0.55-1.02 [facility] Comment on above: Performed By: #### H STROPN, CMP, BNP, MG #### [facility] [address] [place] [address] Dr. Linda Park EGFR-AF GRENADIAN >60 Normal >=60 [facility] Comment on above: Performed By: #### H STROPN, CMP, BNP, MG #### [facility] [address] [place] [address] Dr. Linda Park EGFR-NON AF GRENADIAN >60 Normal >=60 [facility] Comment on above: Performed By: #### H STROPN, CMP, BNP, MG #### [facility] [address] [address] [address] Linda Park Globulin (S) [Mass/Vol] 3.3 g/dL Normal [facility] Comment on above: Performed By: #### H STROPN, CMP, BNP, MG #### [facility] [address] [address] [address] Linda Park Glucose [Mass/Vol] 95 mg/dL Normal 74-106 [facility] Comment on above: Performed By: #### H STROPN, CMP, BNP, MG #### [facility] [address] [address] [address] Linda Park Potassium [Moles/Vol] 4.4 mmol/L Normal 3.5-5.1 [facility] Comment on above: Performed By: #### H STROPN, CMP, BNP, MG #### [facility] [address] [address] [address] Linda Park Protein [Mass/Vol] 7.0 g/dL Normal 6.4-8.2 [facility] Comment on above: Performed By: #### H STROPN, CMP, BNP, MG #### [facility] [address] [address] [address] Linda Park Sodium [Moles/Vol] 140 mmol/L Normal 136-145 [facility] Comment on above: Performed By: #### H STROPN, CMP, BNP, MG #### [facility] [address] [place] [address] Dr. Linda Park Urea nitrogen [Mass/Vol] 14.0 mg/dL Normal 7.0-18.0 [facility] Comment on above: Performed By: #### H STROPN, CMP, BNP, MG #### [facility] [address] [place] [address] Dr. Linda Park Urea nitrogen/Creatinine [Mass ratio] 16.1 mg/mg Normal [facility] Comment on above: Performed By: #### H STROPN, CMP, BNP, MG #### [facility] [address] [place] [address] Dr. Linda Park XR LSPINE MIN 4 VIEWSon 04-14 XR LSPINE MIN 4 VIEWS EXAMINATION: XR LSPINE MIN 4 VIEWS HISTORY: Right side sciatica COMPARISON: CT lumbar spine 09/26/2020 FINDINGS: BONES: Moderate left convex curvature of lumbar spine. Straightening of normal lordotic curvature. No fracture or spondylolisthesis. Moderate-marked degenerative facet arthropathy L2-L3 through L5-S1. DISC SPACES: Marked narrowing L2-L3 through L5-S1. Mild narrowing L1-L2. PARASPINOUS: Negative. No paraspinous abnormality is seen. OTHER: Negative. IMPRESSION: 1. Marked degenerative changes throughout lumbar spine; not appreciably changed allowing for differences in technique. 2. No appreciable acute abnormality. Electronically authenticated by: JAMIR SANCHEZ Date: 2022-04-30 06:55 Normal [facility] MG MAMM SCREEN 3D GONZALEZ CADon 03-05-2022 MG MAMM SCREEN 3D GONZALEZ CAD Patient: ELLI LINDSEY Exam Date: 03/05/2022 : 1945 Gender:F [place] [facility] [place] #: [id number] Family : DR. SAMINA TA M.D. Order #: [id number] CLICK HERE TO VIEW EXAM RADIOLOGY REPORT PROCEDURE: MAMMOGRAM SCREENING 3D BILATERAL CAD COMPARISON: MG MAMM GONZALEZ DIAG W CAD DIG, 11/23/2018. INDICATIONS: Screening mammography Calculator Name NCI Breast Cancer Risk Assessment Tool 5 Year Breast Cancer Risk n/a% Lifetime Breast Cancer Risk n/a% Personal Breast Cancer Yes, 2013 Personal Ovarian Cancer No Treatments lumpectomy, radiation and chemotherapy Family Cancers Grandmother-paternal with breast cancer at age 76; Father with unknown cancer at age 72. LOCATION: [facility] BREAST COMPOSITION: Scattered areas fibroglandular density. FINDINGS: DIAGNOSTIC CATEGORY 2--BENIGN FINDING. NO CHANGE FROM COMPARISON. Scattered benign-appearing calcifications are present. Scattered benign-appearing lymph nodes are present. RIGHT BREAST: No significant suspicious finding. Asymmetrically small, linear scar marker. LEFT BREAST: No significant suspicious finding. RECOMMENDATIONS: ROUTINE MAMMOGRAM AND CLINICAL EVALUATION IN 12 MONTHS. PLEASE NOTE: A NORMAL MAMMOGRAM DOES NOT EXCLUDE THE POSSIBILITY OF BREAST CANCER. A CLINICALLY SUSPICIOUS PALPABLE LUMP SHOULD BE BIOPSIED. Dictated by: Jose Rafael Arndt MD on 03/05/2022 at 11:45 Approved by: Jose Rafael Arndt MD on 03/05/2022 at 12:09 Normal [facility] Basic Metabolic Profon 09-30 (cont.) Normal [facility] Comment on above: Result Comment: Aver age GFR for 70 or more years old: 75 mL/min/1.73sq mChronic Kidney Disease: <60 mL/min/1.73sq mKidney failure: <15 mL/min/1.73sq meGFR calculated using average adult body mass. Additional eGFR calculator available at:http://www.globalrph.BenchPrep/multiple_crcl_2012.htmPerformed at [facility] [address] [place] [address] Performed By: #### C DP, ALCB, BMP, TSH ####[address] [address] [place] [address] Anion gap 13 mmol/L Normal 9-17 [facility] Comment on above: Performed By: #### C DP, ALCB, BMP, TSH ####[address] [place] [address] BUN/CRE Ratio 26 High 9-20 [facility] Comment on above: Performed By: #### C DP, ALCB, BMP, TSH ####[address] [address] Calcium 9.4 mg/dL Normal 8.6-10.4 [facility] Comment on above: Performed By: #### C DP, ALCB, BMP, TSH ####[address] [address] Chloride 101 mmol/L Normal 98-107 [facility] Comment on above: Performed By: #### C DP, ALCB, BMP, TSH ####[address] [place] [address] CO2 25 mmol/L Normal 20-31 [facility] Comment on above: Performed By: #### C DP, ALCB, BMP, TSH ####[address] [place] [address] Creatinine 0.66 mg/dL Normal 0.50-0.90 [facility] Comment on above: Performed By: #### C DP, ALCB, BMP, TSH ####[address] [address] [facility] [place] [address] eGFR (non-black) mL/min/{1.73_m2} Normal >60 [facility] Comment on above: Performed By: #### C DP, ALCB, BMP, TSH ####[facility] [place] [address] Glucose mass conc 92 mg/dL Normal 70-99 [facility] Comment on above: Performed By: #### C DP, ALCB, BMP, TSH ####[facility] [place] [address] Potassium molar conc 4.1 mmol/L Normal 3.7-5.3 [facility] Comment on above: Performed By: #### C DP, ALCB, BMP, TSH ####[address] [address] Sodium 139 mmol/L Normal 135-144 [facility] Comment on above: Performed By: #### C DP, ALCB, BMP, TSH ####[address] [address] Urea nitrogen 17 mg/dL Normal 8-23 [facility] Comment on above: Performed By: #### C DP, ALCB, BMP, TSH ####[address] [address] Staging: NOT REPORTED Normal [facility] Comment on above: Performed By: #### C DP, ALCB, BMP, TSH ####[place] [address] CBC with Diffon 09-30-2017 Abs. Basophil 0.00 k/uL Normal 0.0-0.2 [facility] Comment on above: Result Comment: Perf ormed at [facility] [address] [place] [address] Performed By: #### C DP, ALCB, BMP, TSH ####[place] [address] Abs.Neutrophil (Seg) 4.30 k/uL Normal 1.8-7.7 [facility] Comment on above: Performed By: #### C DP, ALCB, BMP, TSH ####[address] [id number] Basophils/100 WBC Auto (Bld) 1 % Normal 0-2 [facility] Comment on above: Performed By: #### C DP, ALCB, BMP, TSH ####[address] [address] Eosinophils 0.10 10*3/uL Normal 0.0-0.4 [facility] Comment on above: Performed By: #### C DP, ALCB, BMP, TSH ####[address] [address] Eosinophils/100 leukocytes 3 % Normal 1-4 [facility] Comment on above: Performed By: #### C DP, ALCB, BMP, TSH ####[address] [address] Erythrocyte distribution width Auto Ratio (RBC) 13.6 % Normal 11.5-14.5 [facility] Comment on above: Performed By: #### C DP, ALCB, BMP, TSH ####[place] [address] Erythrocytes (RBC) 3.66 10*6/uL Low 4.0-5.2 [facility] Comment on above: Performed By: #### C DP, ALCB, BMP, TSH ####[facility] [address] Hematocrit (HCT) 35.9 % Low 36-46 [facility] Comment on above: Performed By: #### C DP, ALCB, BMP, TSH ####[address] [address] Hemoglobin mass conc (Bld) 12.1 g/dL Normal 12.0-16.0 [facility] Comment on above: Performed By: #### C DP, ALCB, BMP, TSH ####[place] [address] Lymphocytes 1.00 10*3/uL Normal 1.0-4.8 [facility] Comment on above: Performed By: #### C DP, ALCB, BMP, TSH ####[address] [address] Lymphocytes/100 leukocytes 17 % Low 24-44 [facility] Comment on above: Performed By: #### C DP, ALCB, BMP, TSH ####[address] [address] MCH 33.1 pg Normal 26-34 [facility] Comment on above: Performed By: #### C DP, ALCB, BMP, TSH ####[place] [address] MCHC mass conc (RBC) 33.7 g/dL Normal 31-37 [facility] Comment on above: Performed By: #### C DP, ALCB, BMP, TSH ####[address] [id number] MCV 98.1 fL Normal 80-100 [facility] Comment on above: Performed By: #### C DP, ALCB, BMP, TSH ####[address] [address] Monocytes 0.30 10*3/uL Normal 0.2-0.8 [facility] Comment on above: Performed By: #### C DP, ALCB, BMP, TSH ####[address] [address] Monocytes/100 leukocytes 6 % Normal 1-7 [facility] Comment on above: Performed By: #### C DP, ALCB, BMP, TSH ####[address] [address] Neutrophil (Seg) 73 % High 36-66 [facility] Comment on above: Performed By: #### C DP, ALCB, BMP, TSH ####[address] [address] Platelet mean volume (PMV) 7.9 fL Normal 6.0-12.0 [facility] Comment on above: Performed By: #### C DP, ALCB, BMP, TSH ####[address] [address] Platelets 206 10*3/uL Normal 130-400 [facility] Comment on above: Performed By: #### C DP, ALCB, BMP, TSH ####[address] [address] WBC (Leukocytes) 5.8 10*3/uL Normal 3.5-11.0 [facility] Comment on above: Performed By: #### C DP, ALCB, BMP, TSH ####[address] [address] Auto Diff Performed NOT REPORTED Normal [facility] Comment on above: Performed By: #### C DP, ALCB, BMP, TSH ####[address] [address] Erythrocyte morphology NOT REPORTED Normal [facility] Comment on above: Performed By: #### C DP, ALCB, BMP, TSH ####[address] [address] Erythrocytes (RBC) NOT REPORTED Normal [facility] Comment on above: Performed By: #### C DP, ALCB, BMP, TSH ####[address] [address] Granulocytes/100 WBC (Bld) NOT REPORTED Normal 0.00-0.30 [facility] Comment on above: Performed By: #### C DP, ALCB, BMP, TSH ####[address] [address] Immature granulocytes #/vol (Bld) NOT REPORTED Normal 0 [facility] Comment on above: Performed By: #### C DP, ALCB, BMP, TSH ####[address] [address] Platelets NOT REPORTED Normal [facility] Comment on above: Performed By: #### C DP, ALCB, BMP, TSH ####[address] [address] WBC Morphology NOT REPORTED Normal [facility] Comment on above: Performed By: #### C DP, ALCB, BMP, TSH ####[place] [address] Drug Scr, Abuse, Uron 2017 Amphetamine(s),Ur Negative Normal NEG [facility] Comment on above: Result Comment: (Pos itive cutoff 1000 ng/mL) Performed By: #### D AU ####[facility] [place] [address] Barbiturate(s),Ur Negative Normal NEG [facility] Comment on above: Result Comment: (Pos itive cutoff 200 ng/mL) Performed By: #### D AU ####[address] [address] Base excess Negative Normal NEG [facility] Comment on above: Result Comment: (Pos itive cutoff 300 ng/mL) Performed By: #### D AU ####[address] [address] Benzodiazepine(s) Positive Abnormal NEG [facility] Comment on above: Result Comment: (Pos itive cutoff 200 ng/mL) Performed By: #### D AU ####[address] [address] Cannabinoid(s),Ur Negative Normal NE[facility] Comment on above: Result Comment: (Pos itive cutoff 50 ng/mL) Performed By: #### D AU ####[address] [address] Interpretive Info Assay provides medic al screening only. The absence of expected drug(s) and/or Normal [facility] Comment on above: Result Comment: meta bolite(s) may indicate diluted or adulterated urine, limitations of testing or timing of collection.Testing for legal purposes should be confirmed by another method. To request confirmation of test result, please call the lab within 7 days of sample submission.Performed at [facility] [address] [place] [address] Performed By: #### D AU ####[address] [address] Opiate(s), Ur Negative Normal NEG [facility] Comment on above: Result Comment: (Pos itive cutoff 300 ng/mL) Performed By: #### D AU ####[facility] [place] [address].[place] [address] Oxycodone, Urine Positive Abnormal NEG [facility] Comment on above: Result Comment: (Pos itive cutoff 100 ng/mL) Performed By: #### D AU ####[address] [address] Phencyclidine, Ur Negative Normal NEG [facility] Comment on above: Result Comment: (Pos itive cutoff 25 ng/mL) Performed By: #### D AU ####[address] [address] Urine, methadone presence Negative Normal NEG [facility] Comment on above: Result Comment: (Pos itive cutoff 300 ng/mL) Performed By: #### D AU ####[address] [address] Buprenorphrine, Ur NOT REPORTED Normal NEG [facility] Comment on above: Performed By: #### D AU ####[address] [address] MDMA, Urine NOT REPORTED Normal NEG [facility] Comment on above: Performed By: #### D AU ####[address] [address] Methamphetamine, Ur NOT REPORTED Normal NEG [facility] Comment on above: Performed By: #### D AU ####[address] [address] Propoxyphene,Urine NOT REPORTED Normal NEG [facility] Comment on above: Performed By: #### D AU ####[address] [place] [address] Urine, tricyclic antidepressants NOT REPORTED Normal NEG [facility] Comment on above: Performed By: #### D AU ####[address] [address] Ethanol Alcoholon 09-30-2017 Ethanol mg/dL Normal <10 [facility] Comment on above: Performed By: #### C DP, ALCB, BMP, TSH ####[address] [address] Ethanol percent <0.010 Normal [facility] Comment on above: Result Comment: Perf ormed at [address] [address] Performed By: #### C DP, ALCB, BMP, TSH ####[address] [address] Thyroid Stim. Horm.on 2017 Thyroid stimulating hormone (TSH) 0.87 m[IU]/L Normal 0.30-5.00 [facility] Comment on above: Result Comment: Perf ormed at [address] [address] Performed By: #### C DP, ALCB, BMP, TSH ####[address] [address] [facility] DIGITAL DIAGNOSTIC BILAT ERALon 04-27-2017 [facility] DIGITAL DIAGNOSTIC BILATERAL This is a summary report. The complete report is available in the patient's medical record. If you cannot access the medical record, please contact the sending organization for a detailed fax or copy.EXAMINATION:BILATERAL DIGITAL DIAGNOSTIC MAMMOGRAM, 04/27/2017 10:43 amTECHNIQUE:Diagnostic mammography of the bilateral breasts was performed. Computeraided detection was utilized in the interpretation of this exam.Views: MLO and craniocaudal full field digital mammographic images of bothbreasts performed with 3D tomosynthesis.COMPARISON:14 April 2016; 22 April 2015HISTORY:ORDERING SYSTEM PROVIDED HISTORY: History of breast cancerTECHNOLOGIST PROVIDED HISTORY:Reason for exam:->Right breast cancer, s/p XRT and SurgeryPrior right lumpectomy and radiation therapy in 2013. Patient states September2016 drainage of the seroma right breast.FINDINGS:Breasts are composed of scattered fibroglandular density. Stable postlumpectomy and treatment changes are present in the right breast. There isasymmetric density in the upper half of the right posterior breast in thesurgical bed site similar to beam prior 2016 study consistent with stablepostlumpectomy change. No nipple contour changes, malignant typemicrocalcifications or significant interval changes are noted. No new areasof architectural distortion are noted. Subtle right breast skin thickeningpersists, stable.IMPRESSION: Stable post lumpectomy and treatment changes in the right breast. Nomammographic evidence of malignancy. Advise annual screening mammography.BIRADS:BIRADS - CATEGORY 2Benign, no evidence of malignancy. Normal interval follow-up is recommendedin 12 months.OVERALL ASSESSMENT - BENIGNA letter of notification will be sent to the patient regarding the results.[employer] recommends annual mammograms for women 40years and older.Interpreted by:TIM Robinigned by:Elli Aparicio MD04/27/17CC Recipients:[facility] Francois [facility] - FaxFinal result Normal [facility] Encounters Encounter Date Encounter Type Care Provider Facility Start: 07-12-2023 Orders Only Shukri Jeong MD Work Phone: [facility] Start: 11-05-2022 End: 11-06-2022 ambulatory ADI SHAMHENRI Facility:[facility] Start: 09-24-2022 End: 09-25-2022 ambulatory DAINA SANDY . Facility:[facility] Start: 08-25-2022 Encounter for genera l adult medical examination without abnormal findings ADI FIGUEROA [facility] Start: 08-25-2022 Encounter for preprocedural cardiovascular examination DR BEAU WILDER . [facility] Start: 08-25-2022 End: 08-25-[address] BEAU WILDER . Facility:[facility] Start: 08-24-2022 End: 08-25-2022 Encounter for preprocedural cardiovascular examination DR BEAU WILDER . Facility:[facility] Start: 08-24-2022 End: 08-25-[address] BEAU WILDER . Facility:[facility] Start: 08-24-2022 End: 08-25-2022 Encounter for general adult medical examination without abnormal findings ADI FELIPEHENRI Facility:[facility] Start: 08-20-2022 End: 08-21-[address] BEAU WILDER . Facility:[facility] Start: 08-04-2022 End: 08-04-[address] BEAU WILDER . Facility:[facility] Start: 07-23-2022 End: 07-24-[address] BEAU WILDER . Facility:[facility] Start: 07-07-2022 End: 07-07-[address] BEAU WILDER . Facility:[facility] Start: 06-23-2022 End: 06-24-[address] BEAU WILDER . Facility:[facility] Start: 04-29-2022 End: 04-30-2022 ambulatory ADI FIGUEROA Facility:[facility] Start: 03-05-2022 End: 03-06-[address] DOCTOR ASHBY Facility:[facility] Start: 09-30-2017 End: 09-30-2017 Emergency department patient visit MEGHANN TA [facility] Start: 07-20-2017 Patient encounter procedure Shukri Jeong MD Work Phone: [facility] Start: 04-27-2017 End: 04-28-2017 Ambulatory KENZIE ALMONTE [facility] Procedures Date Procedure Procedure Detail Performing Clinician Start: 08-18-2021 Adult depression screening assessment Tatiana Jeong MD Work Phone: Start: 09-30-2017 CALL DOCTOR KENZIE ALMONTE Start: 09-30-2017 URINE DRUG SCREEN KENZIE ALMONTE Start: 09-30-2017 BASIC METABOLIC PANEL KENZIE ALMONTE Start: 09-30-2017 CBC WITH AUTO DIFFERENTIAL KENZIE ALMONTE Start: 09-30-2017 ETHANOL KENZIE ALMONTE Start: 09-30-2017 TSH WITHOUT REFLEX KENZIE ALMONTE Start: 04-27-2017 Diagnosticmammographydigital KENZIE Vela Plan of Treatment Date Care Activity Detail Author Start: 07-21-2032 DTaP,Tdap and Td Vaccines (2 - Td or Tdap) DTaP,Tdap and Td Vaccines (2 - Td or Tdap) [facility] Start: 03-02-2024 Adult BMI Screening Adult BMI Screen ing [facility] Start: 03-02-2024 Tobacco Screening Tobacco Screening [facility] Start: 06-01-2023 Adult BMI Follow Up Plan Adult BMI Follow Up Plan [facility] Start: 02-12-2023 COVID-19 Vaccine ( season) COVID-19 Vaccine ( season) [facility] Start: 02-12-2023 Influenza vaccination Influenza Vacc ine [facility] Start: 08-18-2022 Depression Screening Depression Scre ening [facility] Start: 02-18-2022 Fall Risk Screening Fall Risk Screen ing [facility] Start: 02-18-2022 Medicare Annual Well ness Visit Medicare Annual Wellness Visit [facility] Immunizations Immunization Date Immunization Notes Care Provider Fa cility 03-04-2022 influenza, injectabl e, quadrivalent, preservative free Shukri Jeong MD Work Phone: [facility] 03-04-2022 influenza virus vacc ine, unspecified formulation Shukri Jeong MD Work Phone: [facility] 04-04-2021 influenza, injectabl e, quadrivalent, contains preservative Shukri Jeong MD Work Phone: [facility] 03-13-2021 COVID-19, mRNA, LNP- S, PF, 30mcg/0.3mL Dose Shukri Jeong MD Work Phone: [facility] 08-13-2020 COVID-19, mRNA, LNP- S, PF, 30mcg/0.3mL Dose Shukri Jeong MD Work Phone: [facility] 07-22-2020 COVID-19, mRNA, LNP- S, PF, 30mcg/0.3mL Dose Shukri Jeong MD Work Phone: [facility] 02-06-2020 influenza, injectabl e, quadrivalent, preservative free Shukri Jeong MD Work Phone: [facility] 04-06-2019 zoster vaccine recombinant Shukri Jeong MD Work Phone: [facility] 03-09-2019 influenza, high dose seasonal, preservative-free Shukri Jeong MD Work Phone: [facility] 09-01-2018 zoster vaccine recombinant Shukri Jeong MD Work Phone: [facility] 02-17-2018 Seasonal trivalent influenza vaccine, adjuvanted, preservative free Shukri Jeong MD Work Phone: [facility] 08-26-2017 pneumococcal polysaccharide vaccine, 23 valent Shukri Jeong MD Work Phone: [facility] 02-10-2017 influenza virus vacc ine, unspecified formulation Shukri Jeong MD Work Phone: [facility] 02-20-2016 influenza, seasonal, injectable, preservative free Shukri Jeong MD Work Phone: [facility] 10-09-2015 pneumococcal conjuga te vaccine, 13 valent Shukri Jeong MD Work Phone: [facility] 03-08-2015 Influenza TIV (IM) Shukri soto MD Work Phone: [facility] 07-07-2013 pneumococcal polysaccharide vaccine, 23 valent Shukri Jeong MD Work Phone: [facility] 06-14-2007 pneumococcal polysaccharide vaccine, 23 valromina Jeong MD Work Phone: [facility] 02-26-1999 pneumococcal polysaccharide vaccine, 23 valromina Jeong MD Work Phone: [facility] Payers Date Payer Category Payer Unknown BCBS [facility] HMO/PPO/TRUST [id number] 2022-Present [phone] [address] [place] [address] [id number] 2014 Medicare [id number] 2010 Medicare MEDICARE MEDICAR E PART A & B [id number] 2010-Present [phone] [address] [place] [address] [id number] 1959 Medicare [id number] 1959 Medicare [id number] 1959 Unknown [id number] 1945 Unknown [id number] 1945 Unknown [id number] 1945 Unknown [id number] 1945 Unknown [id number] 1945 Unknown [id number] 1945 Unknown [id number] 1945 Unknown [id number] 1945 Unknown [id number] 1945 Unknown [id number] 1945 Unknown [id number] 1945 Unknown [id number] 1945 Unknown [id number] Social History Date Type Detail Facility [facility]: [facility] Start: 06-01-2022 Tobacco use and exposure Smoke less tobacco non-user [facility] Start: 03-02-2023 Alcohol intake Current drinke r of alcohol (finding) [facility] Start: 03-09-2019 End: 06-26-2020 History of Social function [facility] Start: 03-09-2019 End: 06-26-2020 Social connection and isolation panel [facility] Frequency of Communi cation with Friends and Family Three times a week [facility] Start: 03-09-2019 Education 14 [facility] Start: 1945 Sex Assigned At Not on file [facility] Consultation note 09-24-2022 Note Date & Type Note Facility 09-24-2022 Note CONSULTATION CONSULTATION DATE: 09/24/2022 TO: BERT Bill HISTORY: Patient presents today complaining of 0-7/10 pain in her left lower back pain, described as sharp in character, increased with activities such as standing, walking and performing transitioning maneuvers. She feels most comfortable in the semi-recumbent position. She currently uses baclofen on an as needed basis, and she uses this infrequently. She is no longer on Racine, since at least July. Her GERALDO on today's visit is 15. EXAM: Notable for the patient having no clinical radiculopathy or myelopathy involving the lower extremities. Nothing to suggest facet joint loaded pain clinically or SI joint discomfort clinically on today's visit. Patient did have a moderate amount of myofascial spasm involving the lumbar paravertebral muscles. IMPRESSION: Patient has chronic pain secondary to residual myofascial spasm of the lumbar paravertebral muscles on the left side. RECOMMENDATIONS: I have encouraged her to increase the use of baclofen as tolerated. I have offered no further intervention for her residual pain symptoms, and we will see her back in the office in approximately six months' time or sooner if needed. As part of providing excellent, safe, comprehensive care, the following was completed at our patient's visit: 1. A medication reconciliation and review to ensure accurate knowledge of current/active medications, including asking our patients to inform us about any [id number] medications or herbal remedies/nutritional supplements/alternative remedies. 2. A review to specifically ensure our patients have had annual screening for: elevated body mass index (BMI, see intake chart for exact total), tobacco use, screening for depression, and screening for unhealthy alcohol use. When screening is concerning, patients are provided with education and the specific recommendation to discuss the concerning health issue and treatment options with their primary care provider. [facility] Consultation note 08-20-2022 Note Date & Type Note Facility 08-20-2022 Note CONSULTATION CONSULTATION DATE: 08/20/2022 HISTORY OF PRESENT ILLNESS: This is a 76-year-old female who returns to the clinic status post #2 bilateral MBB of L2, L3 and L4, L5 completed on 08/04/2022. The patient received approximately 50% relief for two weeks. She reports her pain 5/10 today, as she is having increased dull, stabbing, achy pain to her lower back. Pain is greater on the right than the left. She denies any radiating pain, but she does feel slightly weak in the legs. Activities such as pushing, pulling, sitting, housework and bending aggravate her pain. She currently does not use any heat or ice. Medications include Celebrex 200 mg daily, multivitamin, Racine 5/325 daily p.r.n., Excedrin and baclofen 10 mg q.h.s. Patient's REVIEW OF SYSTEMS / PAST MEDICAL HISTORY / ALLERGIES and IMAGES have been reviewed and noted on the chart. PHYSICAL EXAM: VITAL SIGNS: Blood pressure 127/81, heart rate is 70. Temperature is 97.3. Her height is 60 and weighs 85.2. kg. GENERAL IMPRESSION: Pleasant, appropriate, in no acute distress. FOCUSED EXAM - BACK: Range of motion is guarded in lateral rotation and flexion/extension. Paravertebral muscles are non-spasmodic. Spinal axial pain is reproduced upon deep compression along the lower lumbar facets of L2, L3, and L4, L5. Facet fullness palpated indicative of facet arthropathy, lumbar spondylosis. Melisa's point non-tender bilaterally. Negative FABERs and compression test. MUSCULOSKELETAL: Motor is intact, 4/5 bilaterally. Patient walks unassisted with a stable gait. No vasomotor weakness noted. NEUROLOGICAL: Patient is cognitively intact. Radicular sensory is intact. Negative polyneuropathy. Bilateral patellar reflexes are 1/2. DIAGNOSIS: Spinal axial lower back pain, lumbar degenerative disc disease, lumbar spondylosis. PLAN: We will progress forward with bilateral radiofrequency ablation of L2, L3 and L4, L5. She is to continue her Racine 5/325 daily p.r.n. and I highly encouraged her to use a heat rub and heat application once to twice daily. Patient agrees with this plan of care and will be brought back to the clinic thereafter. [facility] Consultation note 07-23-2022 Note Date & Type Note Facility 07-23-2022 Note PAIN MANAGEMENT CONS ULTATION CONSULTATION DATE: 07/23/2022 HISTORY OF PRESENT ILLNESS: This is a pleasant, 76-year-old female who returns to the clinic status post #1 bilateral MBB of L2, L3 and L4, L5 completed on 07/07/2022. The patient received 80% relief for five days. During that time, she was able to walk farther with less pain, had increase endurance and stayed in the kitchen longer. She has pain of 4/10 today. Twisting, pushing, pulling, standing, bending and stairs greatly aggravate her pain. Current medications include Racine 5/325 daily p.r.n., baclofen 10 mg q.h.s. and Celebrex 200 mg daily. She does exercise on the treadmill 10 minutes at time three times a day. She does feel some right lower lumbar tightness. Patient's REVIEW OF SYSTEMS / PAST MEDICAL HISTORY / ALLERGIES and IMAGES have been reviewed and noted on the chart. PHYSICAL EXAM: VITAL SIGNS: Blood pressure is 160/84. Heart rate is 72. Temperature is 97.7. She is 5' and weighs 85 kg. GENERAL IMPRESSION: Pleasant, appropriate, in no acute distress. FOCUSED EXAM - BACK: Range of motion is functional in lateral rotation and flexion/extension. Paravertebral muscles on the right are taut but non-spasmodic. Reproduction of spinal axial pain noted along compression of the lower lumbar facets of L2, L3 and L4, L5. Fullness is palpated in the facets indicative of facet arthropathy, lumbar spondylosis. Melisa's point non- tender bilaterally with no radiating pain. MUSCULOSKELETAL: Motor is 4/5 bilaterally. Patient walks unassisted with a stable gait. NEUROLOGICALLY: Radicular sensory is intact. Negative polyneuropathy. Patient is cognitively intact. DIAGNOSIS: Lower back pain, lumbar spondylosis and lumbar degenerative disc. PLAN: We will authorize to move forward with a #2 bilateral MBB of L1, L2 and L3, L4. Patient is to increase the use of heat daily, as well as stretches which were shown to her. She is to continue with baclofen and multivitamin. Patient agrees to move forward with the plan of care and will be followed up in the office thereafter. [facility] Consultation note 06-23-2022 Note Date & Type Note Facility 06-23-2022 Note CONSULTATION CONSULTATION DATE: 06/23/2022 CHIEF COMPLAINT: Low back pain. HISTORY OF PRESENT ILLNESS: This is a 76-year-old female who is referred to us by Dr. Figueroa. The patient had, in the remote past, fallen down some steps. Subsequent to that, the patient had low back pain. The patient has sought care via chiropractic treatment for multiple years. The patient states her low back pain is now gradually increasing to the point it makes her ADLs significantly difficult. She rates the pain as a 7/10, especially in the cold weather; a throbbing sensation. Twisting, pushing activities, standing at the sink doing dishes, housework, lifting, bending activities aggravate the patient's pain. The patient has tried both heat and ice; does not find relief to any extending level. Making the bed aggravates the pain. The patient had an MRI which was reviewed in office with the patient and education done. Significant degenerative changes noted along the lumbar spine from L1-S1. The patient states she has had a significant loss of axial height. The patient takes Celebrex 200 mg daily. The past, she used to take Percocet also, on a b.i.d. basis, to help her with her pain. The patient walks three times a day at home. The patient is scheduled for the possibility of a neurosurgical consult at [facility]. The patient's PAST MEDICAL HISTORY / SURGICAL HISTORY / REVIEW OF SYSTEMS are noted on the chart, along with the MEDICATION LIST / ALLERGIES and RADIOLOGICAL IMAGES, including the MRI. PHYSICAL EXAM: Upon physical examination, this is a pleasant, cooperative female, who appears to be tired. VITAL SIGNS: 164/72 with a heart rate of 76. At a height of 5'` , the patient weighs 85 kg. HEAD: Atraumatic, normocephalic. NECK: Crepitus is noted. Loss of axial height is present. HEART: Negative orthopnea. LUNGS: Negative dyspnea. ABDOMEN: Protuberant, distended. BACK: Significant paravertebral spasming. Extension, compression, direct palpation along the posterior elements aggravate the patient's pain concordant with facet arthropathy, lumbar spondylosis. EXTREMITIES: No pedal edema is noted. MUSCULOSKELETAL: Intact in the lower extremities. The patient ambulates without any assistive devices; however, the quality of the muscles is poor. Disuse atrophy is present. NEUROLOGICALLY: No clear cut radicular symptomatology is noted. PSYCHIATRICALLY: Affect is appropriate. IMPRESSION: Low back pain, lumbar degenerative disc disease all levels, lumbar spondylosis, lumbar scoliosis, sarcopenia. PLAN: We will start the patient on Racine 5/325 one tablet p.o. daily. The patient is to apply heat rub to her low back. Multivitamin regimen has been started on the patient. The patient will take baclofen 10 mg p.o. q.p.m. An aquatic program has been started on the patient. The patient will be scheduled for a diagnostic lumbar medial branch block at the level of L2-3 and L4-5, at which time the patient will also receive testosterone cypionate 100 mg IM for her osteopenia and sarcopenia. The patient understands and would like to proceed. 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 Living Will 10/11/2015 2:28 PM Additional Source Comments INFORMATION SOURCE (unrecogn ized section and content) DATE CREATED AUTHOR 12/02/2017 [facility] DATE CREATED AUTHOR AUTHOR'S ORGANIZ ATION 11/20/2022 [facility] Care Teams (unrecognized sec tion and content) 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 This clinical summary was aggregated from multiple sources. Caution should be exercised in using it in the provision of clinical care. This summary normalizes information from multiple sources, and as a consequence, information in this document may materially change the coding, format and clinical context of patient data. In addition, data may be omitted in some cases. CLINICAL DECISIONS SHOULD BE BASED ON THE PRIMARY CLINICAL RECORDS. [facility] [employer] provides no warranty or guarantee of the accuracy or completeness of information in this document.
[2023-08-02 07:24] LABS: Estimated Average Glucose 117 mg/dL; Glycohemoglobin A1C 5.7 % (4.5-6.2)
[2023-08-02 07:41] LABS: Alanine Aminotransferase 17 U/L (14-59); Albumin Globulin Ratio 0.9; Albumin Level 3.3 g/dL (3.4-5.0); Alkaline Phosphatase 79 U/L (46-116); Anion Gap 13.9; Aspartate Amino Transferase 15 U/L (15-37); BUN Creatinine Ratio 14.9; Bilirubin Total 0.4 mg/dL (0.2-1.0); Calcium 9.1 mg/dL (8.5-10.1); Carbon Dioxide 27.2 mmol/L (21.0-32.0); Chloride 101 mmol/L (98-107); Chol HDL Ratio 2.7; Cholesterol 135 mg/dL (<=200); Estimated GFR (African America >60 (>=60); Estimated GFR (Non-African Ame 58 (>=60); Globulin 3.6 g/dL; Glucose 87 mg/dL (74-106); HDL Cholesterol 50 mg/dL (40-60); Potassium 4.1 mmol/L (3.5-5.1); Sodium 138 mmol/L (136-145); Thyroid Stimulating Hormone 2.351 uIU/mL (0.358-3.740); Total Protein 6.9 g/dL (6.4-8.2); Triglycerides 207 mg/dL (<=150); VLDL CHOLESTEROL 41.4 mg/dL
[2023-08-02 07:46] LABS: Basophils Percent Auto 0.7 % (0.2-2.0); Eosinophils Absolute Auto 0.2 10^3/uL (0.0-0.7); Eosinophils Percent Auto 3.8 % (0.9-7.0); Hematocrit 31.9 % (36.0-48.0); Hemoglobin 10.6 g/dL (12.0-16.0); Immature Granulocytes Abs Auto 0.01 10^3/uL (0.00-0.03); Immature Granulocytes Pct Auto 0.2 % (0.0-0.5); Lymphocytes Absolute Auto 1.2 10^3/uL (1.2-3.8); Mean Corpuscular HGB Conc 33.2 g/dL (29.9-35.2); Mean Corpuscular Volume 99.4 fL (81.0-99.0); Monocytes Absolute Auto 0.5 10^3/uL (0.3-0.8); Monocytes Percent Auto 7.8 % (1.7-12.0); Neutrophils Absolute Auto 3.9 10^3/uL (1.4-6.5); Neutrophils Percent Auto 67.5 % (43.0-75.0); Platelet Count 228 10^3/uL (150-450); Red Blood Count 3.21 10^6/uL (4.20-5.40); Red Cell Distribution Width 12.1 % (11.0-15.0); White Blood Count 5.8 10^3/uL (4.0-11.0)
[2023-08-03 07:08] LABS: HCV Ab Non Reactive (Non Reactive); HIV Ab/p24 Ag Screen Non Reactive (Non Reactive)
== END 2023-08-02 06:16 | disposition home or self-care (01) ==
LOC: LAB 06:19
PROVIDERS: PCP Nurse Practitioner Primary Care; Visit Provider Nurse Practitioner Primary Care
DX: Z00.00 Encounter for general adult medical examination without abnormal findings (principal); Z13.6 Encounter for screening for cardiovascular disorders; Z11.59 Encounter for screening for other viral diseases; Z11.4 Encounter for screening for human immunodeficiency virus [HIV]; Z13.29 Encounter for screening for other suspected endocrine disorder
CPT/HCPCS: 36415; 80053; 80061; 83036; 84443; 85025; 86803; 87389

== ENCOUNTER 2023-09-06 06:55 | Outpatient (OUT) | payer MEDICARE, SELFPAY ==
--- OUTSIDE RECORDS SUMMARY | 2023-09-06 06:59 | XMS_ITS | CCD ---
Author Organization [facility] Care Team Providers Care Purchasing And Claims Supervisor Name Role Phone KENZIE ALMONTE Unavailable Unavailable SUNDHEIMER, MEGHANN B Unavailable Unavailable SUNDHEIMER, MEGHANN B Unavailable Unavailable BRIDGER PARADA Unavailable Unavailabl e LAKSHMIPATHY ., NARENDELSYATH Attending Natasha vailable SHAMMO, ADI Primary Care Unavailable LAKSHMIPATHY ., NARPETROS Admitting Natasha vailable LAKSHMIPATHY ., DAINA Consulting [...] Consulting Unavailable MISC, DR CABRERA Attending Unavailable SIMS, DR JOSE RAFAEL Mendes Consulting Unavailable MISC, DR CABRERA Admitting Unavailable MISC, DR CABRERA Consulting Unavailable WILDER ., DR BEAU Galvan Attending Unavailable TINA ., DR BEAU Galvan Admitting Unavailable [facility] Unavailable TINA ., DR BEAU Galvan Consulting Unavailable TINA ., DR BEAU Galvan Attending Unavailable TINA ., DR BEAU Galvan Admitting Unavailable [facility] Unavailable TINA ., DR BEAU Galvan Consulting Unavailable TINA ., DR BEAU Galvan Admitting Unavailable TINA ., DR BEAU Galvan Attending Unavailable TINA ., DR BEAU Galvan Consulting Unavailable [facility], [facility] Care Unavailable NKECHI ALLEN Consulting Unavailable [facility], [facility] Provider [phone] Allergies Allergy Classification Reported Allergen(s) Allergy Type Date of Onset Reaction(s) Facility (1 source) Hay Fever And Allergy Relief Propensity to adverse reactions to drug 06-20-2014 [facility] (1 source) Other Propensity to adverse reactions 12-24-2015 [facility] Medications Current Medications Medication Drug Class(es) Dates [...] mg total) by mouth nightly. 0 Active rabsmlbe-zjrj-QT-calciu m &mins (THERAGRAN-M) 9 mg iron-400 mcg tablet (1 source) wdjiviey-rauk-GH -calc ium &mins (THERAGRAN-M) 9 mg iron-400 [...] Reference Range Facility US CAROTID ART BILon 11-06- 023 US CAROTID ART GONZALEZ EXAMINATION: US [...] by: JAMIR SANCHEZ Date: 2022-11-06 05:46 Normal [facility] BNPon 11-05-2022 Natriuretic peptide B (Bld) [Mass/Vol] 55.0 pg/mL Normal <=1,800.0 [facility] Comment on above: Performed By: #### H STROPN, CMP, BNP, MG #### [facility] [address] [address] [address] Linda Park ECHOCARDIO M/2D COMPLETEon 0 11-05-2022 ECHOCARDIO M/2D COMPLETE Patient: ELLI LINDSEY Exam Date: 11/05/2022 : 1945 Gender:F Ordering : ADI FIGUEROA Admission #: [id number] Family : Order #: [id number] CLICK HERE TO VIEW EXAM ECHOCARDIOGRAM REPORT [...] Ventricle Aorta Aortic Valve AoV Area (Peak Nahdi): 2.50 cm2, 2.50 cm2 AoV Area (VTI): 2.58 cm2, 2.58 cm2 Tricuspid Valve Pulmonic Valve Peak Velocity: 1.19 m/s, 1.03 m/s Peak Gradient: 5.68 mm[Hg], 4.23 mm[Hg] Right Atrium Dictated by: Tk Lopez M.D. on 11/08/2022 at 15:12 Approved by: Tk Lopez M.D. on 11/08/2022 at 15:17 Normal [facility] 11-05-2022 Magnesium [Mass/Vol] 2.0 mg/dL Normal 1.8-2.4 [facility] Comment on above: Performed By: #### H STROPN, CMP, BNP, MG #### [facility] [address] [address] [address] Linda Park PROF 14(COMP METB)on 023 Albumin [Mass/Vol] 3.7 g/dL Normal 3.4-5.0 [facility] Comment on above: Performed By: #### H STROPN, CMP, BNP, MG #### [facility] [address] [address] [address] Linda Park Albumin/Globulin [Mass ratio] 1.1 {ratio} Normal [facility] Comment on above: Performed By: #### H STROPN, CMP, BNP, MG #### [facility] [address] [address] [address] Linda Park ALP [Catalytic activity/Vol] 84 U/L Normal 46-116 [facility] Comment on above: Performed By: #### H STROPN, CMP, BNP, MG #### [facility] [address] [address] [address] Linda Park ALT [Catalytic activity/Vol] 17 U/L Normal 14-59 [facility] Comment on above: Performed By: #### H STROPN, CMP, BNP, MG #### [facility] [address] [address] [address] Linda Park Anion gap [Moles/Vol] 10.8 mmol/L Normal [facility] Comment on above: Performed By: #### H STROPN, CMP, BNP, MG #### [facility] [address] [address] [address] Linda Park AST [Catalytic activity/Vol] 15 U/L Normal 15-37 [facility] Comment on above: Performed By: #### H STROPN, CMP, BNP, MG #### [facility] [address] [address] [address] Linda Park Bilirubin [Mass/Vol] 0.2 mg/dL Normal 0.2-1.0 [facility] Comment on above: Performed By: #### H STROPN, CMP, BNP, MG #### [facility] [address] [address] [address] Linda Park Calcium [Mass/Vol] 9.1 mg/dL Normal 8.5-10.1 [facility] Comment on above: Performed By: #### H STROPN, CMP, BNP, MG #### [facility] [address] [address] [address] Linda Park Chloride [Moles/Vol] 104 mmol/L Normal 98-107 [facility] Comment on above: Performed By: #### H STROPN, CMP, BNP, MG #### [facility] [address] [place] [address] Dr. Linda Park CO2 [Moles/Vol] 30.8 mmol/L Normal 21.0-32.0 [facility] Comment on above: Performed By: #### H STROPN, CMP, BNP, MG #### [facility] [address] [place] [address] Dr. Linda Park Creatinine [Mass/Vol] 0.94 mg/dL Normal 0.55-1.02 [facility] Comment on above: Performed By: #### H STROPN, CMP, BNP, MG #### [facility] [address] [place] [address] Dr. Linda Park EGFR-AF NORTHER[place]ISH >60 Normal >=60 [facility] Comment on above: Performed By: #### H STROPN, CMP, BNP, MG #### [facility] [address] [place] [address] Dr. Linda Park EGFR-NON AF [place]THER[place]ISH 58 mL/min/1.73m2 Critically low >=60 [facility] Comment on above: Performed By: #### H STROPN, CMP, BNP, MG #### [facility] [address] [place] [address] Dr. Lnida Park Globulin (S) [Mass/Vol] 3.5 g/dL Normal [facility] Comment on above: Performed By: #### H STROPN, CMP, BNP, MG #### [facility] [address] [address] [address] Linda Park Glucose [Mass/Vol] 78 mg/dL Normal 74-106 [facility] Comment on above: Performed By: #### H STROPN, CMP, BNP, MG #### [facility] [address] [address] [address] Linda Park Potassium [Moles/Vol] 4.6 mmol/L Normal 3.5-5.1 [facility] Comment on above: Performed By: #### H STROPN, CMP, BNP, MG #### [facility] [address] [address] [address] Linda Park Protein [Mass/Vol] 7.2 g/dL Normal 6.4-8.2 [facility] Comment on above: Performed By: #### H STROPN, CMP, BNP, MG #### [facility] [address] [place] [address] Dr. Linda Park Sodium [Moles/Vol] 141 mmol/L Normal 136-145 [facility] Comment on above: Performed By: #### H STROPN, CMP, BNP, MG #### [facility] [address] [address] [address] Linda Park Urea nitrogen [Mass/Vol] 17.0 mg/dL Normal 7.0-18.0 [facility] Comment on above: Performed By: #### H STROPN, CMP, BNP, MG #### [facility] [address] [place] [address] Dr. Linda Park Urea nitrogen/Creatinine [Mass ratio] 18.1 mg/mg Normal [facility] Comment on above: Performed By: #### H STROPN, CMP, BNP, MG #### [facility] [address] [place] [address] Dr. Linda Park TROPONIN, HIGH SENSITIVITYon 11-05-2022 HSTROP 9.2 pg/mL Normal 4.0-51.3 [facility] Comment on above: Result Comment: CUT- OFF POINTS HAVE BEEN ESTABLISHED BASED ON THE FOURTH UNIVERSAL DEFINITIONS OF MYOCARDIAL INFARCTION. THE UPPER REFERENCE LIMIT (URL) OF TROPONIN, DEFINED THE 99TH PERCENTILE OF cTnI DISTRIBUTION IN A REFERENCE POPULATION, HAS BEEN CONFIRMED THE DECISION THRESHOLD FOR ID DIAGNOSIS. Performed By: #### H STROPN, CMP, BNP, MG #### [facility] [address] [place] [address] Dr. Linda Park XR CHEST 2 Von [...] TERRENCE ALBERTO Date: 2022-11-05 18:32 Normal [facility] HEMOGRAM AND PLATELon 2022 Hematocrit (Bld) [Volume fraction] 27.8 % Critically low 36.0-48.0 [facility] Comment on above: Performed By: #### H STROPN, CMP, BNP, MG #### [facility] [address] [place] [address] Dr. Linda Park Hemoglobin (Bld) [Mass/Vol] 8.8 g/dL Critically low 12.0-16.0 [facility] Comment on above: Performed By: #### H STROPN, CMP, BNP, MG #### [facility] [address] [place] [address] Dr. Linda Park MCH (RBC) [Entitic mass] 29.0 pg Normal 26.7-34.0 [facility] Comment on above: Performed By: #### H STROPN, CMP, BNP, MG #### [facility] [address] [place] [address] Dr. Linda Park MCHC (RBC) [Mass/Vol] 31.7 g/dL Normal 29.9-35.2 [facility] Comment on above: Performed By: #### H STROPN, CMP, BNP, MG #### [facility] [address] [address] [address] Linda Park MCV (RBC) [Entitic vol] 91.7 fL Normal 81.0-99.0 [facility] Comment on above: Performed By: #### H STROPN, CMP, BNP, MG #### [facility] [address] [address] [address] Linda Park PLT 217 103/ul Normal 150-450 [facility] Comment on above: Performed By: #### H STROPN, CMP, BNP, MG #### [facility] [address] [place] [address] Dr. Linda Park RBC 3.03 106/ul Critically low 4.20-5.40 [facility] Comment on above: Performed By: #### H STROPN, CMP, BNP, MG #### [facility] [address] [place] [address] Dr. Linda Park WBC 6.4 103/ul Normal 4.0-11.0 [facility] Comment on above: Performed By: #### H STROPN, CMP, BNP, MG #### [facility] [address] [place] [address] Dr. Linda Park LIPID PROFILEon 08-24-2022 CHOL-HDL RATIO NORM SEE BELOW Normal [facility] Comment on above: Result Comment: 3.3 - 4.4 LOW RISK 4.4 - 7.1 AVERAGE RISK 7.1 - 11.0 MODERATE RISK >11.0 HIGH RISK Performed By: #### H STROPN, CMP, BNP, MG #### [facility] [address] [place] [address] Dr. Linda Park Cholesterol [Mass/Vol] 166 mg/dL Normal <=200 [facility] Comment on above: Performed By: #### H STROPN, CMP, BNP, MG #### [facility] [address] [place] [address] Dr. Linda Park Cholesterol in HDL [Mass/Vol] 54 mg/dL Normal 40-60 [facility] Comment on above: Performed By: #### H STROPN, CMP, BNP, MG #### [facility] [address] [address] [address] Linda Park Cholesterol in LDL [Mass/Vol] 70.8 mg/dL Normal [facility] Comment on above: Performed By: #### H STROPN, CMP, BNP, MG #### [facility] [address] [address] [address] Linda Park Cholesterol.total/C holesterol in HDL [Mass ratio] 3.1 {ratio} Normal [facility] Comment on above: Performed By: #### H STROPN, CMP, BNP, MG #### [facility] [address] [address] [address] Linda Park HDL NORMAL > or = 60 mg/dl - LO W CARDIOVASCULAR RISK <40 mg/dl - HIGH CARDIOVASCULAR RISK Normal [facility] Comment on above: Performed By: #### H STROPN, CMP, BNP, MG #### [facility] [address] [address] [address] Linda Park LDL CALC NORMAL SEE BELOW Normal [facility] Comment on above: Result Comment: <100 mg/dl OPTIMAL 100 - 129 mg/dl NEAR OR ABOVE OPTIMAL 130 - 159 mg/dl BORDERLINE HIGH 160 - 189 mg/dl HIGH >190 mg/dl VERY HIGH Performed By: #### H STROPN, CMP, BNP, MG #### [facility] [address] [address] [address] Linda Park Triglyceride [Mass/Vol] 206 mg/dL Critically high <=150 [facility] Comment on above: Performed By: #### H STROPN, CMP, BNP, MG #### [facility] [address] [address] [address] Linda Park VLDL CALC 41.2 mg/dL Normal [facility] Comment on above: Performed By: #### H STROPN, CMP, BNP, MG #### [facility] [address] [address] [address] Linda Park PROF 14(COMP METB)on 023 Albumin [Mass/Vol] 3.7 g/dL Normal 3.4-5.0 [facility] Comment on above: Performed By: #### H STROPN, CMP, BNP, MG #### [facility] [address] [address] [address] Linda Park Albumin/Globulin [Mass ratio] 1.1 {ratio} Normal [facility] Comment on above: Performed By: #### H STROPN, CMP, BNP, MG #### [facility] [address] [address] [address] Linda Park ALP [Catalytic activity/Vol] 84 U/L Normal 46-116 [facility] Comment on above: Performed By: #### H STROPN, CMP, BNP, MG #### [facility] [address] [place] [address] Dr. Linda Park ALT [Catalytic activity/Vol] 17 U/L Normal 14-59 [facility] Comment on above: Performed By: #### H STROPN, CMP, BNP, MG #### [facility] [address] [address] [address] Linda Park Anion gap [Moles/Vol] 11.8 mmol/L Normal [facility] Comment on above: Performed By: #### H STROPN, CMP, BNP, MG #### [facility] [address] [address] [address] Linda Park AST [Catalytic activity/Vol] 19 U/L Normal 15-37 [facility] Comment on above: Performed By: #### H STROPN, CMP, BNP, MG #### [facility] [address] [address] [address] Linda Park Bilirubin [Mass/Vol] 0.4 mg/dL Normal 0.2-1.0 [facility] Comment on above: Performed By: #### H STROPN, CMP, BNP, MG #### [facility] [address] [address] [address] Linda Park Calcium [Mass/Vol] 9.5 mg/dL Normal 8.5-10.1 [facility] Comment on above: Performed By: #### H STROPN, CMP, BNP, MG #### [facility] [address] [address] [address] Linda Park Chloride [Moles/Vol] 104 mmol/L Normal 98-107 [facility] Comment on above: Performed By: #### H STROPN, CMP, BNP, MG #### [facility] [address] [address] [address] Linda Park CO2 [Moles/Vol] 28.6 mmol/L Normal 21.0-32.0 [facility] Comment on above: Performed By: #### H STROPN, CMP, BNP, MG #### [facility] [address] [place] [address] Dr. Linda Park Creatinine [Mass/Vol] 0.87 mg/dL Normal 0.55-1.02 [facility] Comment on above: Performed By: #### H STROPN, CMP, BNP, MG #### [facility] [address] [place] [address] Dr. Linda Park EGFR-AF [place] >60 Normal >=60 [facility] Comment on above: Performed By: #### H STROPN, CMP, BNP, MG #### [facility] [address] [place] [address] Dr. Linda Park EGFR-NON AF [place] >60 Normal >=60 [facility] Comment on above: Performed By: #### H STROPN, CMP, BNP, MG #### [facility] [address] [place] [address] Dr. Linda Park Globulin (S) [Mass/Vol] 3.3 g/dL Normal [facility] Comment on above: Performed By: #### H STROPN, CMP, BNP, MG #### [facility] [address] [place] [address] Dr. Linda Park Glucose [Mass/Vol] 95 mg/dL Normal 74-106 [facility] Comment on above: Performed By: #### H STROPN, CMP, BNP, MG #### [facility] [address] [place] [address] Dr. Linda Park Potassium [Moles/Vol] 4.4 mmol/L Normal 3.5-5.1 [facility] Comment on above: Performed By: #### H STROPN, CMP, BNP, MG #### [facility] [address] [address] [address] Linda Park Protein [Mass/Vol] 7.0 g/dL Normal 6.4-8.2 [facility] Comment on above: Performed By: #### H STROPN, CMP, BNP, MG #### [facility] [address] [address] [address] Linda Park Sodium [Moles/Vol] 140 mmol/L Normal 136-145 [facility] Comment on above: Performed By: #### H STROPN, CMP, BNP, MG #### [facility] [address] [address] [address] Linda Park Urea nitrogen [Mass/Vol] 14.0 mg/dL Normal 7.0-18.0 [facility] Comment on above: Performed By: #### H STROPN, CMP, BNP, MG #### [facility] [address] [address] [address] Linda Park Urea nitrogen/Creatinine [Mass ratio] 16.1 mg/mg Normal [facility] Comment on above: Performed By: #### H STROPN, CMP, BNP, MG #### [facility] [address] [address] [address] Linda Park XR LSPINE MIN 4 [...] by: JAMIR SANCHEZ Date: 2022-04-30 06:55 Normal [facility] MG MAMM SCREEN 3D GONZALEZ CADon 03-05-2022 MG MAMM SCREEN 3D GONZALEZ CAD Patient: ELLI LINDSEY Exam Date: 03/05/2022 : 1945 Gender:F Ordering : DR DOCTOR ZAVALA Admission #: [id number] Family : DR. SAMINA GEE M.D. Order #: [id number] CLICK HERE TO VIEW EXAM RADIOLOGY REPORT [...] unknown cancer at age 72. LOCATION: [facility] BREAST COMPOSITION: Scattered areas fibroglandular density. FINDINGS: [...] Arndt MD on 03/05/2022 at 12:09 Normal [facility] Basic Metabolic Profon 09-30 (cont.) Normal [facility] Comment on above: Result Comment: Aver age GFR for 70 or more years old: 75 mL/min/1.73sq mChronic Kidney Disease: <60 mL/min/1.73sq mKidney failure: <15 mL/min/1.73sq meGFR calculated using average adult body mass. Additional eGFR calculator available at:http://www.[employer]/multiple_crcl_2011.htmPerformed at [facility] [address] [place] [address] Performed By: #### C DP, ALCB, BMP, TSH ####[facility] [place], [place] [address]ia [facility] [place] [address] Anion gap 13 mmol/L Normal 9-17 [facility] Comment on above: Performed By: #### C DP, ALCB, BMP, TSH ####[address] [facility] [address] BUN/CRE Ratio 26 High 9-20 [facility] Comment on above: Performed By: #### C DP, ALCB, BMP, TSH ####[address] [facility] [address] Calcium 9.4 mg/dL Normal 8.6-10.4 [facility] Comment on above: Performed By: #### C DP, ALCB, BMP, TSH ####[facility] [place] [address].[place] [address] Chloride 101 mmol/L Normal 98-107 [facility] Comment on above: Performed By: #### C DP, ALCB, BMP, TSH ####[address] [place] [address] CO2 25 mmol/L Normal 20-31 [facility] Comment on above: Performed By: #### C DP, ALCB, BMP, TSH ####[facility] [place], [place] [address]ia [facility] [place] [address] Creatinine 0.66 mg/dL Normal 0.50-0.90 [facility] Comment on above: Performed By: #### C DP, ALCB, BMP, TSH ####[address] [place] [address] eGFR (non-black) mL/min/{1.73_m2} Normal >60 [facility] Comment on above: Performed By: #### C DP, ALCB, BMP, TSH ####[address] [address] Glucose mass conc 92 mg/dL Normal 70-99 [facility] Comment on above: Performed By: #### C DP, ALCB, BMP, TSH ####[address] [address] Potassium molar conc 4.1 mmol/L Normal 3.7-5.3 [facility] Comment on above: Performed By: #### C DP, ALCB, BMP, TSH ####[address] [address] Sodium 139 mmol/L Normal 135-144 [facility] Comment on above: Performed By: #### C DP, ALCB, BMP, TSH ####[address] [address] Urea nitrogen 17 mg/dL Normal 8-23 [facility] Comment on above: Performed By: #### C DP, ALCB, BMP, TSH ####[address] [address] Staging: NOT REPORTED Normal [facility] Comment on above: Performed By: #### C DP, ALCB, BMP, TSH ####[address] [address] CBC with Diffon 09-30-2017 Abs. Basophil 0.00 k/uL Normal 0.0-0.2 [facility] Comment on above: Result Comment: Perf ormed at [facility] [address] [place] [address] Performed By: #### C DP, ALCB, BMP, TSH ####[address] [address] Abs.Neutrophil (Seg) 4.30 k/uL Normal 1.8-7.7 [facility] Comment on above: Performed By: #### C DP, ALCB, BMP, TSH ####[address] [address] Basophils/100 WBC Auto (Bld) 1 % Normal 0-2 [facility] Comment on above: Performed By: #### C DP, ALCB, BMP, TSH ####[address] [address] Eosinophils 0.10 10*3/uL Normal 0.0-0.4 [facility] Comment on above: Performed By: #### C DP, ALCB, BMP, TSH ####[address] [address] Eosinophils/100 leukocytes 3 % Normal 1-4 [facility] Comment on above: Performed By: #### C DP, ALCB, BMP, TSH ####[address] [address] Erythrocyte distribution width Auto Ratio (RBC) 13.6 % Normal 11.5-14.5 [facility] Comment on above: Performed By: #### C DP, ALCB, BMP, TSH ####[address] [address] Erythrocytes (RBC) 3.66 10*6/uL Low 4.0-5.2 [facility] Comment on above: Performed By: #### C DP, ALCB, BMP, TSH ####[address] [address] Hematocrit (HCT) 35.9 % Low 36-46 [facility] Comment on above: Performed By: #### C DP, ALCB, BMP, TSH ####[place] [address] Hemoglobin mass conc (Bld) 12.1 g/dL Normal 12.0-16.0 [facility] Comment on above: Performed By: #### C DP, ALCB, BMP, TSH ####[place] [address] Lymphocytes 1.00 10*3/uL Normal 1.0-4.8 [facility] Comment on above: Performed By: #### C DP, ALCB, BMP, TSH ####[place] [address] Lymphocytes/100 leukocytes 17 % Low 24-44 [facility] Comment on above: Performed By: #### C DP, ALCB, BMP, TSH ####[place] [address] MCH 33.1 pg Normal 26-34 [facility] Comment on above: Performed By: #### C DP, ALCB, BMP, TSH ####[place] [address] MCHC mass conc (RBC) 33.7 g/dL Normal 31-37 [facility] Comment on above: Performed By: #### C DP, ALCB, BMP, TSH ####[place] [address] MCV 98.1 fL Normal 80-100 [facility] Comment on above: Performed By: #### C DP, ALCB, BMP, TSH ####[place] [address] Monocytes 0.30 10*3/uL Normal 0.2-0.8 [facility] Comment on above: Performed By: #### C DP, ALCB, BMP, TSH ####[address] [address] Monocytes/100 leukocytes 6 % Normal 1-7 [facility] Comment on above: Performed By: #### C DP, ALCB, BMP, TSH ####[address] [address] Neutrophil (Seg) 73 % High 36-66 [facility] Comment on above: Performed By: #### C DP, ALCB, BMP, TSH ####[address] [address] Platelet mean volume (PMV) 7.9 fL Normal 6.0-12.0 [facility] Comment on above: Performed By: #### C DP, ALCB, BMP, TSH ####[address] [address] Platelets 206 10*3/uL Normal 130-400 [facility] Comment on above: Performed By: #### C DP, ALCB, BMP, TSH ####[address] [address] WBC (Leukocytes) 5.8 10*3/uL Normal 3.5-11.0 [facility] Comment on above: Performed By: #### C DP, ALCB, BMP, TSH ####[address] [address] Auto Diff Performed NOT REPORTED Normal [facility] Comment on above: Performed By: #### C DP, ALCB, BMP, TSH ####[address] [address] Erythrocyte morphology NOT REPORTED Normal [facility] Comment on above: Performed By: #### C DP, ALCB, BMP, TSH ####[address] [address] Erythrocytes (RBC) NOT REPORTED Normal [facility] Comment on above: Performed By: #### C DP, ALCB, BMP, TSH ####[address] [address] Granulocytes/100 WBC (Bld) NOT REPORTED Normal 0.00-0.30 [facility] Comment on above: Performed By: #### C DP, ALCB, BMP, TSH ####[address] [address] Immature granulocytes #/vol (Bld) NOT REPORTED Normal 0 [facility] Comment on above: Performed By: #### C DP, ALCB, BMP, TSH ####[address] [address] Platelets NOT REPORTED Normal [facility] Comment on above: Performed By: #### C DP, ALCB, BMP, TSH ####[address] [address] WBC Morphology NOT REPORTED Normal [facility] Comment on above: Performed By: #### C DP, ALCB, BMP, TSH ####[address] [address] Drug Scr, Abuse, Uron 2017 Amphetamine(s),Ur Negative Normal NEG [facility] Comment on above: Result Comment: (Pos itive cutoff 1000 ng/mL) Performed By: #### D AU ####[address] [address] Barbiturate(s),Ur Negative Normal NEG [facility] Comment on above: Result Comment: (Pos itive cutoff 200 ng/mL) Performed By: #### D AU ####[facility] [place] [address] Base excess Negative Normal NEG [facility] Comment on above: Result Comment: (Pos itive cutoff 300 ng/mL) Performed By: #### D AU ####[address] [address] Benzodiazepine(s) Positive Abnormal NEG [facility] Comment on above: Result Comment: (Pos itive cutoff 200 ng/mL) Performed By: #### D AU ####[address] [address] Cannabinoid(s),Ur Negative Normal NEG [facility] Comment on above: Result Comment: (Pos itive cutoff 50 ng/mL) Performed By: #### D AU ####[address] [address] Interpretive Info Assay provides medic al screening only. The absence of expected drug(s) and/or Normal [facility] Comment on above: Result Comment: meta bolite(s) may indicate diluted or adulterated urine, limitations of testing or timing of collection.Testing for legal purposes should be confirmed by another method. To request confirmation of test result, please call the lab within 7 days of sample submission.Performed at [facility] [address] [place] [address] Performed By: #### D AU ####[address] [address] Opiate(s), Ur Negative Normal NEG [facility] Comment on above: Result Comment: (Pos itive cutoff 300 ng/mL) Performed By: #### D AU ####[facility] [place] [address].[place] [address] Oxycodone, Urine Positive Abnormal NEG [facility] Comment on above: Result Comment: (Pos itive cutoff 100 ng/mL) Performed By: #### D AU ####[facility] [place] [address].[place] [address] Phencyclidine, Ur Negative Normal NEG [facility] Comment on above: Result Comment: (Pos itive cutoff 25 ng/mL) Performed By: #### D AU ####[address] [place] [address] Urine, methadone presence Negative Normal NEG [facility] Comment on above: Result Comment: (Pos itive cutoff 300 ng/mL) Performed By: #### D AU ####[address] [place] [address] Buprenorphrine, Ur NOT REPORTED Normal NEG [facility] Comment on above: Performed By: #### D AU ####[address] [place] [address] MDMA, Urine NOT REPORTED Normal NEG [facility] Comment on above: Performed By: #### D AU ####[address] [place] [address] Methamphetamine, Ur NOT REPORTED Normal NEG [facility] Comment on above: Performed By: #### D AU ####[address] [place] [address] Propoxyphene,Urine NOT REPORTED Normal NEG [facility] Comment on above: Performed By: #### D AU ####[address] [place] [address] Urine, tricyclic antidepressants NOT REPORTED Normal NEG [facility] Comment on above: Performed By: #### D AU ####[place] [address] Ethanol Alcoholon 09-30-2017 Ethanol mg/dL Normal <10 [facility] Comment on above: Performed By: #### C DP, ALCB, BMP, TSH ####[address] [address] Ethanol percent <0.010 Normal [facility] Comment on above: Result Comment: Perf ormed at [facility] [address] [place] [address] Performed By: #### C DP, ALCB, BMP, TSH ####[place] [address] Thyroid Stim. Horm.on 2017 Thyroid stimulating hormone (TSH) 0.87 m[IU]/L Normal 0.30-5.00 [facility] Comment on above: Result Comment: Perf ormed at [facility] [address] [place] [address] Performed By: #### C DP, ALCB, BMP, TSH ####[address] [address] [facility] DIGITAL DIAGNOSTIC BILAT ERALon 04-27-2017 [facility] DIGITAL DIAGNOSTIC BILATERAL This is [...] sent to the patient regarding the results.[employer] recommends annual mammograms for women 40years and older.Interpreted by:TIM Robinigned by:Elli Aparicio MD04/27/17CC Recipients:[facility] Francois [facility] - FaxFinal result Normal [facility] Encounters Encounter Date Encounter Type Care Provider Facility Start: 07-12-2023 Orders Only Shukri Jeong MD Work Phone: [facility] Start: 11-05-2022 End: 11-06-2022 ambulatory ADI FIGUEROA Facility:[facility] Start: 09-24-2022 End: 09-25-2022 ambulatory DAINA SANDY . Facility:[facility] Start: 08-25-2022 Encounter for genera l adult medical examination without abnormal findings ADI FIGUEROA [facility] Start: 08-25-2022 Encounter for preprocedural cardiovascular examination DR BEAU WILDER . [facility] Start: 08-25-2022 End: 08-25-[address] BEAU WILDER . Facility:[facility] Start: 08-24-2022 End: 08-25-2022 Encounter for preprocedural cardiovascular examination DR BEAU WILDER . Facility:[facility] Start: 08-24-2022 End: 08-25-[address] BEAU WILDER . Facility:[facility] Start: 08-24-2022 End: 08-25-2022 Encounter for general adult medical examination without abnormal findings ADI FIGUEROA Facility:[facility] Start: 08-20-2022 End: 08-21-[address] [...] End: 09-30-2017 Emergency department patient visit MEGHANN GEE [facility] Start: 07-20-2017 Patient encounter procedure Shukri Jeong MD Work Phone: [facility] Start: 04-27-2017 End: 04-28-2017 Ambulatory KENZIE ALMONTE [facility] Procedures Date Procedure Procedure Detail Performing Clinician Start: 08-18-2021 Adult depression screening assessment Tatiana Jeong MD Work Phone: Start: 09-30-2017 CALL DOCTOR KENZIE ALMONTE Start: 09-30-2017 URINE DRUG SCREEN KENZIE ALMONTE Start: 09-30-2017 BASIC METABOLIC PANEL KENZIE ALMONTE Start: 09-30-2017 CBC WITH AUTO DIFFERENTIAL KENZIE ALMONTE Start: 09-30-2017 ETHANOL KENZIE ALMONTE Start: 09-30-2017 TSH WITHOUT REFLEX KENZIE ALMONTE Start: 04-27-2017 Diagnosticmammographydigital KENZIE WAKEFIELD Y Plan of Treatment Date Care Activity Detail Author Start: 07-21-2032 DTaP,Tdap and Td Vaccines (2 - Td or Tdap) DTaP,Tdap and Td Vaccines (2 - Td or Tdap) [facility] Start: 03-02-2024 Adult BMI Screening Adult BMI Screen ing [facility] Start: 03-02-2024 Tobacco Screening Tobacco Screening [facility] Start: 06-01-2023 Adult BMI Follow Up Plan Adult BMI Follow Up Plan [facility] Start: 02-12-2023 COVID-19 Vaccine ( season) COVID-19 Vaccine ( season) [facility] Start: 02-12-2023 Influenza vaccination Influenza Vacc ine [facility] Start: 08-18-2022 Depression Screening Depression Scre ening [facility] Start: 02-18-2022 Fall Risk Screening Fall Risk Screen ing [facility] Start: 02-18-2022 Medicare Annual Well ness Visit Medicare Annual Wellness Visit [facility] Immunizations Immunization Date Immunization Notes Care Provider Fa cility 03-04-2022 influenza, injectabl e, quadrivalent, preservative free Shukri Jeong MD Work Phone: [facility] 03-04-2022 influenza virus vacc ine, unspecified formulation Shukri Jeong MD Work Phone: [facility] 04-04-2021 influenza, injectabl e, quadrivalent, contains preservative Shukri Jeong MD Work Phone: [facility] 03-13-2021 COVID-19, mRNA, LNP- S, PF, 30mcg/0.3mL Dose Shukri Jeong MD Work Phone: [facility] 08-13-2020 COVID-19, mRNA, LNP- S, PF, 30mcg/0.3mL Dose Shukri Jeong MD Work Phone: [facility] 07-22-2020 COVID-19, mRNA, LNP- S, PF, 30mcg/0.3mL Dose Shukri Jeong MD Work Phone: [facility] 02-06-2020 influenza, injectabl e, quadrivalent, preservative free Shukri Jeong MD Work Phone: [facility] 04-06-2019 zoster vaccine recombinant Shukri Jeong MD Work Phone: [facility] 03-09-2019 influenza, high dose seasonal, preservative-free Shukri Jeong MD Work Phone: [facility] 09-01-2018 zoster vaccine recombinant Shukri Jeong MD Work Phone: [facility] 02-17-2018 Seasonal trivalent influenza vaccine, adjuvanted, preservative free Shukri Jeong MD Work Phone: [facility] 08-26-2017 pneumococcal polysaccharide vaccine, 23 valent Shukri Jeong MD Work Phone: [facility] 02-10-2017 influenza virus vacc ine, unspecified formulation Shukri Jeong MD Work Phone: [facility] 02-20-2016 influenza, seasonal, injectable, preservative free Shukri Jeong MD Work Phone: [facility] 10-09-2015 pneumococcal conjuga te vaccine, 13 valent Shukri Jeong MD Work Phone: [facility] 03-08-2015 Influenza TIV (IM) Shukri soto MD Work Phone: [facility] 07-07-2013 pneumococcal polysaccharide vaccine, 23 valent Shukri Jeong MD Work Phone: [facility] 06-14-2007 pneumococcal polysaccharide vaccine, 23 valent Shukri Jeong MD Work Phone: [facility] 02-26-1999 pneumococcal polysaccharide vaccine, 23 valromina Jeong MD Work Phone: [facility] Payers Date Payer Category Payer Unknown BCBS [facility] HMO/PPO/TRUST [id number] 2022-[facility] [phone] [place] [address] [id number] 2014 Medicare [id number] 2010 Medicare MEDICARE MEDICAR E PART A & B [id number] 2010-Present [phone] [address] [place] [address] [id number] 1959 Medicare [id number] 1959 Medicare [id number] 1959 Unknown [id number] 1945 Unknown [id number] 1945 Unknown [id number] 1945 Unknown [id number] 1945 Unknown [id number] 1945 Unknown [id number] 1945 Unknown [id number] 1945 Unknown [id number] [id number] 1945 Unknown [id number] 1945 Unknown [id number] 1945 Unknown [id number] 1945 Unknown [id number] 1945 Unknown [id number] Social History Date Type Detail Facility Start: 06-01-2022 Tobacco smoking stat NHIS Never smoked tobacco [facility] Start: 06-01-2022 Tobacco use and exposure Smoke less tobacco non-user [facility] Start: 03-02-2023 Alcohol intake Current drinke r of alcohol (finding) [facility] Start: 03-09-2019 End: 06-26-2020 History of Social function [facility] Start: 03-09-2019 End: 06-26-2020 Social connection and isolation panel [facility] Frequency of Communi cation with Friends and Family Three times a week [facility] Start: 03-09-2019 Education 14 [facility] Start: 1945 Sex Assigned At Not on file P [facility] Consultation note 09-24-2022 Note Date & Type [...] this infrequently. She is no longer on [place], since at least July. Her GERALDO on [...] our patients to inform us about any [id number] medications or herbal remedies/nutritional supplements/alternative remedies. 2. [...] options with their primary care provider. [facility] Consultation note 08-20-2022 Note Date & Type [...] Medications include Celebrex 200 mg daily, multivitamin, [place] 5/325 daily p.r.n., Excedrin and baclofen 10 [...] L4, L5. She is to continue her [place] 5/325 daily p.r.n. and I highly encouraged her to use a heat rub and heat application once to twice daily. Patient agrees with this plan of care and will be brought back to the clinic thereafter. [facility] Consultation note 07-23-2022 Note Date & Type [...] greatly aggravate her pain. Current medications include [place] 5/325 daily p.r.n., baclofen 10 mg q.h.s. [...] followed up in the office thereafter. [facility] Consultation note 06-23-2022 Note Date & Type [...] the possibility of a neurosurgical consult at [facility]. The patient's PAST MEDICAL HISTORY / [...] PLAN: We will start the patient on [place] 5/325 one tablet p.o. daily. The patient [...] would like to proceed. 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 [employer] provides no warranty or guarantee of the accuracy or completeness of information in this document.
[2023-09-06 07:16] LABS: Basophils Percent Auto 0.6 % (0.2-2.0); Eosinophils Absolute Auto 0.3 10^3/uL (0.0-0.7); Eosinophils Percent Auto 5.3 % (0.9-7.0); Hematocrit 32.1 % (36.0-48.0); Hemoglobin 10.6 g/dL (12.0-16.0); Immature Granulocytes Abs Auto 0.01 10^3/uL (0.00-0.03); Immature Granulocytes Pct Auto 0.2 % (0.0-0.5); Lymphocytes Absolute Auto 1.3 10^3/uL (1.2-3.8); Mean Corpuscular Hemoglobin 33.1 pg (26.7-34.0); Mean Corpuscular Volume 100.3 fL (81.0-99.0); Mean Platelet Volume 9.3 fL (9.5-13.5); Monocytes Absolute Auto 0.3 10^3/uL (0.3-0.8); Monocytes Percent Auto 6.3 % (1.7-12.0); Neutrophils Absolute Auto 3.3 10^3/uL (1.4-6.5); Neutrophils Percent Auto 63.6 % (43.0-75.0); Platelet Count 191 10^3/uL (150-450); Red Cell Distribution Width 12.6 % (11.0-15.0); Reticulocyte Pct Auto 1.86 % (0.60-3.10); White Blood Count 5.2 10^3/uL (4.0-11.0)
[2023-09-06 07:24] LABS: Erythrocyte Sedimentation Rate 24 mm/hr (<=30)
[2023-09-06 09:08] LABS: Alanine Aminotransferase 18 U/L (14-59); Albumin Globulin Ratio 1.1; Albumin Level 3.6 g/dL (3.4-5.0); Alkaline Phosphatase 84 U/L (46-116); Anion Gap 14.6; Aspartate Amino Transferase 16 U/L (15-37); BUN Creatinine Ratio 15.6; Bilirubin Total 0.4 mg/dL (0.2-1.0); Calcium 9.2 mg/dL (8.5-10.1); Carbon Dioxide 26.6 mmol/L (21.0-32.0); Chloride 104 mmol/L (98-107); Estimated GFR (African America >60 (>=60); Estimated GFR (Non-African Ame 56 (>=60); Globulin 3.4 g/dL; Glucose 95 mg/dL (74-106); Potassium 4.2 mmol/L (3.5-5.1); Sodium 141 mmol/L (136-145)
[2023-09-06 14:56] LABS: Percent Iron Saturation 31.8 %
[2023-09-07 15:09] LABS: Albumin 3.9 g/dL (2.9-4.4); Alpha-1-Globulin 0.2 g/dL (0.0-0.4); Alpha-2-Globulin 0.7 g/dL (0.4-1.0); Gamma Globulin 0.9 g/dL (0.4-1.8); Immunoglobulin A, Qn, Serum 168 mg/dL (64-422); Immunoglobulin G, Qn, Serum 847 mg/dL (586-1602); Immunoglobulin M, Qn, Serum 143 mg/dL (26-217); Protein, Total 6.5 g/dL (6.0-8.5)
[2023-09-07 16:10] LABS: Erythropoietin (EPO), Serum 25.5 mIU/mL (2.6-18.5)
== END 2023-09-06 06:56 | disposition home or self-care (01) ==
LOC: LAB 06:57
PROVIDERS: PCP Nurse Practitioner Primary Care; Visit Provider Internal Medicine Hematology & Oncology
DX: C50.411 Malignant neoplasm of upper-outer quadrant of right female breast (principal); D64.9 Anemia, unspecified; D50.9 Iron deficiency anemia, unspecified; K90.9 Intestinal malabsorption, unspecified
CPT/HCPCS: 36415; 80053; 82607; 82668; 82728; 82784; 83540; 83550; 84155; 84165; 85025; 85652; 86140; 86334

== ENCOUNTER 2023-09-14 07:24 | Outpatient (RCR) | payer MEDICARE, SELFPAY | END 2023-10-12 23:59 | disposition home or self-care (01) | LOC: INF 07:24 | PROVIDERS: PCP Nurse Practitioner Primary Care; Visit Provider Internal Medicine Hematology & Oncology | DX: D50.9 Iron deficiency anemia, unspecified (principal); K90.9 Intestinal malabsorption, unspecified; Z85.3 Personal history of malignant neoplasm of breast | CPT/HCPCS: G0463 ==

== ENCOUNTER 2024-01-12 10:49 | Outpatient (OUT) | payer MEDICARE, SELFPAY ==
--- OUTSIDE RECORDS SUMMARY | 2024-01-12 10:55 | XMS_ITS | CCD ---
Author Organization [facility] Care Team Providers Care Wirer Passenger Car Name Role Phone KENZIE ALMONTE Unavailable Unavailable SUNDHEIMER, MEGHANN B Unavailable Unavailable SUNDHEIMER, MEGHANN B Unavailable Unavailable BRIDGER PARADA Unavailable Unavailabl e LAKSHMIPATHY ., NARIZZYATH Attending Natasha vailable SHAMMO, ADI Primary Care Unavailable LAKSHMIPATHY ., NARPETROS Admitting Natasha vailable LAKSHMIPATHY ., DAINA Consulting Natasha vailable WILDER ., DR BEAU Galvan Admitting Unavailable MCLEAN .DARION Consulting Unavailable SHAMMO, ADI Primary Care Unavailable [...] Consulting Unavailable SHAMMO, ADI Consulting Unavailable SHAMMO, DAI Attending Unavailable SHAMMO, ADI Admitting Unavailable SHAMMO, ADI Primary Care Unavailable WILDER ., DR BEAU Galvan Admitting Unavailable WILDER ., DR BEAU Galvan Consulting Unavailable WILDER ., DR BEAU Galvan Attending Unavailable SHAMMO, ADI Primary Care Unavailable SHAMMO, ADI Primary Care Unavailable SHAMMO, ADI Attending Unavailable SHAMMO, ADI Admitting Unavailable ZIELICEO, DR JAMIR Amaya Consulting Unavailable SHAMMO, ADI Consulting Unavailable MISC, DR CABRERA Attending Unavailable RIC[place]IL[place], DR JOSE RAFAEL Mendes Consulting Unavailable MISC, DR DOCTOR Admitting Unavailable MISSulma, DR CABRERA Consulting Unavailable TINA ., DR BEAU Galvan Attending Unavailable TINA ., DR BEAU Galvan Admitting Unavailable [facility] Unavailable TINA ., DR BEAU Galvan Consulting Unavailable TINA ., DR BEAU Galvan Attending Unavailable TINA ., DR BEAU Galvan Admitting Unavailable [facility] Unavailable TINA ., DR BEAU Galvan Consulting Unavailable TINA ., DR BEAU Galvan Admitting Unavailable TINA ., DR BEAU Galvan Attending Unavailable TINA ., DR BEAU Galvan Consulting Unavailable [facility] Primary Care Unavailable NKECHI ALLEN Consulting Unavailable [facility] [place] Primary [facility] Emergency Department Provider Allergies Allergy Classification Reported Allergen(s) Allergy Type Date of Onset Reaction(s) Facility (1 source) Hay Fever And Allergy Relief Propensity to adverse reactions to drug 06-20-2014 [facility] (1 source) Other Propensity to adverse reactions 12-24-2015 [facility] Medications Current Medications Medication Drug Class(es) [...] mg total) by mouth nightly. 0 Active yjllaybf-wlgn-FI-calciu m &mins (THERAGRAN-M) 9 mg iron-400 mcg tablet (1 source) nmkvdvkt-tvaj-SK -calc ium &mins (THERAGRAN-M) 9 mg iron-400 [...] and giddiness; Translations: [DIZZINESS AND GIDDINESS] Onset: 05-26-2023 Episodic Disorders of lipid metabolism (1 source) [...] ART GONZALEZ EXAMINATION: US CORREA TID ART OGNZALEZ HISTORY: Dizziness and giddiness , hypertension, hypercholesterolemia [...] JAMIR SANCHEZ Date: 2022-11-06 05:46 Normal [facility] BNPon 11-05-2022 Natriuretic peptide B (Bld) [Mass/Vol] 55.0 pg/mL Normal <=1,800.0 [facility] Comment on above: Performed By: #### H STROPN, CMP, BNP, MG #### [facility] [address] [place] [address] Dr. Linda Park ECHOCARDIO M/2D COMPLETEon 0 11-05-2022 ECHOCARDIO M/2D COMPLETE Patient: ELLI LINDSEY Exam Date: 11/05/2022 : 1945 Gender:F Ordering : ADI FIGUEROA Admission #: [id number] Family : Order #: [id number] CLICK HERE TO VIEW EXAM ECHOCARDIOGRAM REPORT [...] Lopez M.D. on 11/08/2022 at 15:17 Normal [facility] MAGNESIUMon 11-05-2022 Magnesium [Mass/Vol] 2.0 mg/dL Normal 1.8-2.4 [facility] Comment on above: Performed By: #### H STROPN, CMP, BNP, MG #### [facility] [address] [place] [address] Dr. Linda Park PROF 14(COMP METB)on 023 Albumin [Mass/Vol] 3.7 g/dL Normal 3.4-5.0 [facility] Comment on above: Performed By: #### H STROPN, CMP, BNP, MG #### [facility] [address] [address] [address] Linda Park Albumin/Globulin [Mass ratio] 1.1 {ratio} Normal [facility] Comment on above: Performed By: #### H STROPN, CMP, BNP, MG #### [facility] [address] [place] [address] Dr. Linda Park ALP [Catalytic activity/Vol] 84 U/L Normal 46-116 [facility] Comment on above: Performed By: #### H STROPN, CMP, BNP, MG #### [facility] [address] [place] [address] Dr. Linda Park ALT [Catalytic activity/Vol] 17 U/L Normal 14-59 [facility] Comment on above: Performed By: #### H STROPN, CMP, BNP, MG #### [facility] [address] [place] [address] Dr. Linda Park Anion gap [Moles/Vol] 10.8 mmol/L Normal [facility] Comment on above: Performed By: #### H STROPN, CMP, BNP, MG #### [facility] [address] [place] [address] Dr. Linda Park AST [Catalytic activity/Vol] 15 U/L Normal 15-37 [facility] Comment on above: Performed By: #### H STROPN, CMP, BNP, MG #### [facility] [address] [place] [address] Dr. Linda Park Bilirubin [Mass/Vol] 0.2 mg/dL Normal 0.2-1.0 [facility] Comment on above: Performed By: #### H STROPN, CMP, BNP, MG #### [facility] [address] [address] [address] Linda Park Calcium [Mass/Vol] 9.1 mg/dL Normal 8.5-10.1 [facility] Comment on above: Performed By: #### H STROPN, CMP, BNP, MG #### [facility] [address] [address] [address] Linda Park Chloride [Moles/Vol] 104 mmol/L Normal 98-107 [facility] Comment on above: Performed By: #### H STROPN, CMP, BNP, MG #### [facility] [address] [place] [address] Dr. Linda Park CO2 [Moles/Vol] 30.8 mmol/L Normal 21.0-32.0 [facility] Comment on above: Performed By: #### H STROPN, CMP, BNP, MG #### [facility] [address] [place] [address] Dr. Linda Park Creatinine [Mass/Vol] 0.94 mg/dL Normal 0.55-1.02 [facility] Comment on above: Performed By: #### H STROPN, CMP, BNP, MG #### [facility] [address] [place] [address] Dr. Linda Park EGFR-AF CAMEROONIAN >60 Normal >=60 [facility] Comment on above: Performed By: #### H STROPN, CMP, BNP, MG #### [facility] [address] [place] [address] Dr. Linda Park EGFR-NON AF CAMEROONIAN 58 mL/min/1.73m2 Critically low >=60 [facility] Comment on above: Performed By: #### H STROPN, CMP, BNP, MG #### [facility] [address] [place] [address] Dr. Linda Park Globulin (S) [Mass/Vol] 3.5 g/dL Normal [facility] Comment on above: Performed By: #### H STROPN, CMP, BNP, MG #### [facility] [address] [address] [address] Linda Park Glucose [Mass/Vol] 78 mg/dL Normal 74-106 [facility] Comment on above: Performed By: #### H STROPN, CMP, BNP, MG #### [facility] [address] [place] [address] Dr. Linda Park Potassium [Moles/Vol] 4.6 mmol/L Normal 3.5-5.1 [facility] Comment on above: Performed By: #### H STROPN, CMP, BNP, MG #### [facility] [address] [address] [address] Linda Park Protein [Mass/Vol] 7.2 g/dL Normal 6.4-8.2 [facility] Comment on above: Performed By: #### H STROPN, CMP, BNP, MG #### [facility] [address] [place] [address] Dr. Linda Park Sodium [Moles/Vol] 141 mmol/L Normal 136-145 [facility] Comment on above: Performed By: #### H STROPN, CMP, BNP, MG #### [facility] [address] [place] [address] Dr. Linda Park Urea nitrogen [Mass/Vol] 17.0 mg/dL Normal 7.0-18.0 [facility] Comment on above: Performed By: #### H STROPN, CMP, BNP, MG #### [facility] [address] [place] [address] Dr. Linda Park Urea nitrogen/Creatinine [Mass ratio] 18.1 mg/mg Normal [facility] Comment on above: Performed By: #### H STROPN, CMP, BNP, MG #### [facility] [address] [place] [address] Dr. Linda Park TROPONIN, HIGH SENSITIVITYon 11-05-2022 HSTROP 9.2 pg/mL Normal 4.0-51.3 [facility] Comment on above: Result Comment: CUT- OFF POINTS HAVE BEEN ESTABLISHED BASED ON THE FOURTH UNIVERSAL DEFINITIONS OF MYOCARDIAL INFARCTION. THE UPPER REFERENCE LIMIT (URL) OF TROPONIN, DEFINED THE 99TH PERCENTILE OF cTnI DISTRIBUTION IN A REFERENCE POPULATION, HAS BEEN CONFIRMED THE DECISION THRESHOLD FOR NC DIAGNOSIS. Performed By: #### H STROPN, CMP, BNP, MG #### [facility] [address] [address] [address] Linda Park XR CHEST 2 Von [...] TERRENCE ALBERTO Date: 2022-11-05 18:32 Normal [facility] HEMOGRAM AND PLATELon 2022 Hematocrit (Bld) [Volume fraction] 27.8 % Critically low 36.0-48.0 [facility] Comment on above: Performed By: #### H STROPN, CMP, BNP, MG #### [facility] [address] [place] [address] Dr. Linda Park Hemoglobin (Bld) [Mass/Vol] 8.8 g/dL Critically low 12.0-16.0 [facility] Comment on above: Performed By: #### H STROPN, CMP, BNP, MG #### [facility] [address] [address] [address] Linda Park MCH (RBC) [Entitic mass] 29.0 pg Normal 26.7-34.0 [facility] Comment on above: Performed By: #### H STROPN, CMP, BNP, MG #### [facility] [address] [place] [address] Dr. Linda Park MCHC (RBC) [Mass/Vol] 31.7 g/dL Normal 29.9-35.2 [facility] Comment on above: Performed By: #### H STROPN, CMP, BNP, MG #### [facility] [address] [place] [address] Dr. Linda Park MCV (RBC) [Entitic vol] 91.7 fL Normal 81.0-99.0 [facility] Comment on above: Performed By: #### H STROPN, CMP, BNP, MG #### [facility] [address] [place] [address] Dr. Linda Park PLT 217 103/ul Normal 150-450 [facility] Comment on above: Performed By: #### H STROPN, CMP, BNP, MG #### [facility] [address] [place] [address] Dr. Linda Park RBC 3.03 106/ul Critically low 4.20-5.40 [facility] Comment on above: Performed By: #### H STROPN, CMP, BNP, MG #### [facility] [address] [place] [address] Dr. Linda Park WBC 6.4 103/ul Normal 4.0-11.0 [facility] Comment on above: Performed By: #### H STROPN, CMP, BNP, MG #### [facility] [address] [place] [address] Dr. Linda Park LIPID PROFILEon 08-24-2022 CHOL-HDL RATIO NORM SEE BELOW Normal [facility] Comment on above: Result Comment: 3.3 - 4.4 LOW RISK 4.4 - 7.1 AVERAGE RISK 7.1 - 11.0 MODERATE RISK >11.0 HIGH RISK Performed By: #### H STROPN, CMP, BNP, MG #### [facility] [address] [place] [address] Dr. Linda Park Cholesterol [Mass/Vol] 166 mg/dL Normal <=200 [facility] Comment on above: Performed By: #### H STROPN, CMP, BNP, MG #### [facility] [address] [address] [address] Linda Park Cholesterol in HDL [Mass/Vol] 54 mg/dL Normal 40-60 [facility] Comment on above: Performed By: #### H STROPN, CMP, BNP, MG #### [facility] [address] [address] [address] Linda Park Cholesterol in LDL [Mass/Vol] 70.8 mg/dL Normal [facility] Comment on above: Performed By: #### H STROPN, CMP, BNP, MG #### [facility] [address] [address] [address] Linda Park Cholesterol.total/C holesterol in HDL [Mass ratio] 3.1 {ratio} Normal [facility] Comment on above: Performed By: #### H STROPN, CMP, BNP, MG #### [facility] [address] [place] [address] Dr. Linda Park HDL NORMAL > or = 60 mg/dl - LO W CARDIOVASCULAR RISK <40 mg/dl - HIGH CARDIOVASCULAR RISK Normal [facility] Comment on above: Performed By: #### H STROPN, CMP, BNP, MG #### [facility] [address] [address] [address] Linda Park LDL CALC NORMAL SEE BELOW Normal [facility] Comment on above: Result Comment: <100 mg/dl OPTIMAL 100 - 129 mg/dl NEAR OR ABOVE OPTIMAL 130 - 159 mg/dl BORDERLINE HIGH 160 - 189 mg/dl HIGH >190 mg/dl VERY HIGH Performed By: #### H STROPN, CMP, BNP, MG #### [facility] [address] [address] [address] Linda Park Triglyceride [Mass/Vol] 206 mg/dL Critically high <=150 [facility] Comment on above: Performed By: #### H STROPN, CMP, BNP, MG #### [facility] [address] [address] [address] Linda Park VLDL CALC 41.2 mg/dL Normal [facility] Comment on above: Performed By: #### H STROPN, CMP, BNP, MG #### [facility] [address] [address] [address] Linda Park PROF 14(COMP METB)on 023 Albumin [Mass/Vol] 3.7 g/dL Normal 3.4-5.0 [facility] Comment on above: Performed By: #### H STROPN, CMP, BNP, MG #### [facility] [address] [address] [address] Linda Park Albumin/Globulin [Mass ratio] 1.1 {ratio} Normal [facility] Comment on above: Performed By: #### H STROPN, CMP, BNP, MG #### [facility] [address] [address] [address] Linda Park ALP [Catalytic activity/Vol] 84 U/L Normal 46-116 [facility] Comment on above: Performed By: #### H STROPN, CMP, BNP, MG #### [facility] [address] [place] [address] Dr. Linda Park ALT [Catalytic activity/Vol] 17 U/L Normal 14-59 [facility] Comment on above: Performed By: #### H STROPN, CMP, BNP, MG #### [facility] [address] [address] [address] Linda Park Anion gap [Moles/Vol] 11.8 mmol/L Normal [facility] Comment on above: Performed By: #### H STROPN, CMP, BNP, MG #### [facility] [address] [address] [address] Linda Park AST [Catalytic activity/Vol] 19 U/L Normal 15-37 [facility] Comment on above: Performed By: #### H STROPN, CMP, BNP, MG #### [facility] [address] [address] [address] Linda Park Bilirubin [Mass/Vol] 0.4 mg/dL Normal 0.2-1.0 [facility] Comment on above: Performed By: #### H STROPN, CMP, BNP, MG #### [facility] [address] [address] [address] Linda Park Calcium [Mass/Vol] 9.5 mg/dL Normal 8.5-10.1 [facility] Comment on above: Performed By: #### H STROPN, CMP, BNP, MG #### [facility] [address] [address] [address] Linda Park Chloride [Moles/Vol] 104 mmol/L Normal 98-107 [facility] Comment on above: Performed By: #### H STROPN, CMP, BNP, MG #### [facility] [address] [address] [address] Linda Park CO2 [Moles/Vol] 28.6 mmol/L Normal 21.0-32.0 [facility] Comment on above: Performed By: #### H STROPN, CMP, BNP, MG #### [facility] [address] [place] [address] Dr. Linda Park Creatinine [Mass/Vol] 0.87 mg/dL Normal 0.55-1.02 [facility] Comment on above: Performed By: #### H STROPN, CMP, BNP, MG #### [facility] [address] [place] [address] Dr. Linda Park EGFR-AF CAMEROONIAN >60 Normal >=60 [facility] Comment on above: Performed By: #### H STROPN, CMP, BNP, MG #### [facility] [address] [place] [address] Dr. Linda Park EGFR-NON AF CAMEROONIAN >60 Normal >=60 [facility] Comment on above: Performed By: #### H STROPN, CMP, BNP, MG #### [facility] [address] [place] [address] Dr. Linda Park Globulin (S) [Mass/Vol] 3.3 g/dL Normal [facility] Comment on above: Performed By: #### H STROPN, CMP, BNP, MG #### [facility] [address] [place] [address] Dr. Linda Park Glucose [Mass/Vol] 95 mg/dL Normal 74-106 [facility] Comment on above: Performed By: #### H STROPN, CMP, BNP, MG #### [facility] [address] [address] [address] Linda Park Potassium [Moles/Vol] 4.4 mmol/L Normal 3.5-5.1 [facility] Comment on above: Performed By: #### H STROPN, CMP, BNP, MG #### [facility] [address] [address] [address] Linda Park Protein [Mass/Vol] 7.0 g/dL Normal 6.4-8.2 [facility] Comment on above: Performed By: #### H STROPN, CMP, BNP, MG #### [facility] [address] [address] [address] Linda Park Sodium [Moles/Vol] 140 mmol/L Normal 136-145 [facility] Comment on above: Performed By: #### H STROPN, CMP, BNP, MG #### [facility] [address] [address] [address] Linda Park Urea nitrogen [Mass/Vol] 14.0 mg/dL Normal 7.0-18.0 [facility] Comment on above: Performed By: #### H STROPN, CMP, BNP, MG #### [facility] [address] [address] [address] Linda Park Urea nitrogen/Creatinine [Mass ratio] 16.1 mg/mg Normal [facility] Comment on above: Performed By: #### H STROPN, CMP, BNP, MG #### [facility] [address] [address] [address] Linda Park XR LSPINE MIN 4 [...] No appreciable acute abnormality. Electronically authenticated by: JAMIRELSA SANCHEZ Date: 2022-04-30 06:55 Normal [facility] MG MAMM SCREEN 3D GONZALEZ CADon 03-05-2022 MG MAMM SCREEN 3D GONZALEZ CAD Patient: LELI LINDSEY Exam Date: 03/05/2022 : 1945 Gender:F Ordering : DR DOCTOR ZAVAAL Admission #: [id number] Family : DR. SAMINA GEE M.D. Order #: [id number] CLICK HERE TO VIEW EXAM RADIOLOGY REPORT [...] unknown cancer at age 72. LOCATION: [facility] BREAST COMPOSITION: Scattered areas fibroglandular density. [...] Arndt MD on 03/05/2022 at 12:09 Normal [facility] Basic Metabolic Profon 09-30 (cont.) Normal [facility] Comment on above: Result Comment: Aver age GFR for 70 or more years old: 75 mL/min/1.73sq mChronic Kidney Disease: <60 mL/min/1.73sq mKidney failure: <15 mL/min/1.73sq meGFR calculated using average adult body mass. Additional eGFR calculator available at:http://www.netprice.com.GL 2ours/multiple_crcl_2012.htmPerformed at [facility] [address] [place] [address] Performed By: #### C DP, ALCB, BMP, TSH ####[facility] [place] [address] Anion gap 13 mmol/L Normal 9-17 [facility] Comment on above: Performed By: #### C DP, ALCB, BMP, TSH ####[address] [address] [place] [address] BUN/CRE Ratio 26 High 9-20 [facility] Comment on above: Performed By: #### C DP, ALCB, BMP, TSH ####[address] [place] [address] Calcium 9.4 mg/dL Normal 8.6-10.4 [facility] Comment on above: Performed By: #### C DP, ALCB, BMP, TSH ####[facility] [place] [address] Chloride 101 mmol/L Normal 98-107 [facility] Comment on above: Performed By: #### C DP, ALCB, BMP, TSH ####[address] [facility] [place] [address] CO2 25 mmol/L Normal 20-31 [facility] Comment on above: Performed By: #### C DP, ALCB, BMP, TSH ####[facility] [place] [address] Creatinine 0.66 mg/dL Normal 0.50-0.90 [facility] Comment on above: Performed By: #### C DP, ALCB, BMP, TSH ####[address] [address] [place] [address] eGFR (non-black) mL/min/{1.73_m2} Normal >60 [facility] Comment on above: Performed By: #### C DP, ALCB, BMP, TSH ####[address] [address] Glucose mass conc 92 mg/dL Normal 70-[address] [facility] Comment on above: Performed By: #### C DP, ALCB, BMP, TSH ####[address] [address] Potassium molar conc 4.1 mmol/L Normal 3.7-5.3 [facility] Comment on above: Performed By: #### C DP, ALCB, BMP, TSH ####[address] [address] Sodium 139 mmol/L Normal 135-144 [facility] Comment on above: Performed By: #### C DP, ALCB, BMP, TSH ####[address] [address] Urea nitrogen 17 mg/dL Normal 8-23 [facility] Comment on above: Performed By: #### C DP, ALCB, BMP, TSH ####[address] [address] Staging: NOT REPORTED Normal [facility] Comment on above: Performed By: #### C DP, ALCB, BMP, TSH ####[address] [address] CBC with Diffon 09-30-2017 Abs. Basophil 0.00 k/uL Normal 0.0-0.2 [facility] Comment on above: Result Comment: Perf ormed at [facility] [address] [place] [address] Performed By: #### C DP, ALCB, BMP, TSH ####[address] [address] Abs.Neutrophil (Seg) 4.30 k/uL Normal 1.8-7.7 [facility] Comment on above: Performed By: #### C DP, ALCB, BMP, TSH ####[address] [address] Basophils/100 WBC Auto (Bld) 1 % Normal 0-2 [facility] Comment on above: Performed By: #### C DP, ALCB, BMP, TSH ####[address] [id number] Eosinophils 0.10 10*3/uL Normal 0.0-0.4 [facility] Comment on above: Performed By: #### C DP, ALCB, BMP, TSH ####[address] [address] Eosinophils/100 leukocytes 3 % Normal 1-4 [facility] Comment on above: Performed By: #### C DP, ALCB, BMP, TSH ####[place] [address] Erythrocyte distribution width Auto Ratio (RBC) 13.6 % Normal 11.5-14.5 [facility] Comment on above: Performed By: #### C DP, ALCB, BMP, TSH ####[address] [address] Erythrocytes (RBC) 3.66 10*6/uL Low 4.0-5.2 [facility] Comment on above: Performed By: #### C DP, ALCB, BMP, TSH ####[place] [address] Hematocrit (HCT) 35.9 % Low 36-46 [facility] Comment on above: Performed By: #### C DP, ALCB, BMP, TSH ####[address] [address] Hemoglobin mass conc (Bld) 12.1 g/dL Normal 12.0-16.0 [facility] Comment on above: Performed By: #### C DP, ALCB, BMP, TSH ####[address] [address] Lymphocytes 1.00 10*3/uL Normal 1.0-4.8 [facility] Comment on above: Performed By: #### C DP, ALCB, BMP, TSH ####[address] [address] Lymphocytes/100 leukocytes 17 % Low 24-44 [facility] Comment on above: Performed By: #### C DP, ALCB, BMP, TSH ####[place] [address] MCH 33.1 pg Normal 26-34 [facility] Comment on above: Performed By: #### C DP, ALCB, BMP, TSH ####[address] [address] MCHC mass conc (RBC) 33.7 g/dL Normal 31-37 [facility] Comment on above: Performed By: #### C DP, ALCB, BMP, TSH ####[place] [id number] MCV 98.1 fL Normal 80-100 [facility] Comment on above: Performed By: #### C DP, ALCB, BMP, TSH ####[place] [address] Monocytes 0.30 10*3/uL Normal 0.2-0.8 [facility] Comment on above: Performed By: #### C DP, ALCB, BMP, TSH ####[address] [address] Monocytes/100 leukocytes 6 % Normal 1-7 [facility] Comment on above: Performed By: #### C DP, ALCB, BMP, TSH ####[address] [address] Neutrophil (Seg) 73 % High 36-66 [facility] Comment on above: Performed By: #### C DP, ALCB, BMP, TSH ####[address] [address] Platelet mean volume (PMV) 7.9 fL Normal 6.0-12.0 [facility] Comment on above: Performed By: #### C DP, ALCB, BMP, TSH ####[address] [address] Platelets 206 10*3/uL Normal 130-400 [facility] Comment on above: Performed By: #### C DP, ALCB, BMP, TSH ####[address] [address] WBC (Leukocytes) 5.8 10*3/uL Normal 3.5-11.[address] [facility] Comment on above: Performed By: #### C DP, ALCB, BMP, TSH ####[address] [address] Auto Diff Performed NOT REPORTED Normal [facility] Comment on above: Performed By: #### C DP, ALCB, BMP, TSH ####[address] [place] [address] Erythrocyte morphology NOT REPORTED Normal [facility] Comment on above: Performed By: #### C DP, ALCB, BMP, TSH ####[address] [address] Erythrocytes (RBC) NOT REPORTED Normal [facility] Comment on above: Performed By: #### C DP, ALCB, BMP, TSH ####[address] [address] Granulocytes/100 WBC (Bld) NOT REPORTED Normal 0.00-0.30 [facility] Comment on above: Performed By: #### C DP, ALCB, BMP, TSH ####[address] [address] Immature granulocytes #/vol (Bld) NOT REPORTED Normal 0 [facility] Comment on above: Performed By: #### C DP, ALCB, BMP, TSH ####[address] [address] Platelets NOT REPORTED Normal [facility] Comment on above: Performed By: #### C DP, ALCB, BMP, TSH ####[address] [address] WBC Morphology NOT REPORTED Normal [facility] Comment on above: Performed By: #### C DP, ALCB, BMP, TSH ####[address] [address] Drug Scr, Abuse, Uron 2017 Amphetamine(s),Ur Negative Normal NEG [facility] Comment on above: Result Comment: (Pos itive cutoff 1000 ng/mL) Performed By: #### D AU ####[address] [address] Barbiturate(s),Ur Negative Normal NEG [facility] Comment on above: Result Comment: (Pos itive cutoff 200 ng/mL) Performed By: #### D AU ####[facility] [place] [address] Base excess Negative Normal NEG [facility] Comment on above: Result Comment: (Pos itive cutoff 300 ng/mL) Performed By: #### D AU ####[address] [address] Benzodiazepine(s) Positive Abnormal NEG [facility] Comment on above: Result Comment: (Pos itive cutoff 200 ng/mL) Performed By: #### D AU ####[address] [address] Cannabinoid(s),Ur Negative Normal NEG [facility] Comment on above: Result Comment: (Pos itive cutoff 50 ng/mL) Performed By: #### D AU ####[address] [address] Interpretive Info Assay provides medic al screening only. The absence of expected drug(s) and/or Normal [facility] Comment on above: Result Comment: meta bolite(s) may indicate diluted or adulterated urine, limitations of testing or timing of collection.Testing for legal purposes should be confirmed by another method. To request confirmation of test result, please call the lab within 7 days of sample submission.Performed at [facility] [address] [place] [address] Performed By: #### D AU ####[address] [address] Opiate(s), Ur Negative Normal NEG [facility] Comment on above: Result Comment: (Pos itive cutoff 300 ng/mL) Performed By: #### D AU ####[address] [place] [address] Oxycodone, Urine Positive Abnormal NEG [facility] Comment on above: Result Comment: (Pos itive cutoff 100 ng/mL) Performed By: #### D AU ####[address] [place] [address] Phencyclidine, Ur Negative Normal NEG [facility] Comment on above: Result Comment: (Pos itive cutoff 25 ng/mL) Performed By: #### D AU ####[address] [address] Urine, methadone presence Negative Normal NEG [facility] Comment on above: Result Comment: (Pos itive cutoff 300 ng/mL) Performed By: #### D AU ####[address] [address] Buprenorphrine, Ur NOT REPORTED Normal NEG [facility] Comment on above: Performed By: #### D AU ####[address] [address] MDMA, Urine NOT REPORTED Normal NEG [facility] Comment on above: Performed By: #### D AU ####[address] [address] Methamphetamine, Ur NOT REPORTED Normal NEG [facility] Comment on above: Performed By: #### D AU ####[address] [address] Propoxyphene,Urine NOT REPORTED Normal NEG [facility] Comment on above: Performed By: #### D AU ####[address] [address] Urine, tricyclic antidepressants NOT REPORTED Normal NEG [facility] Comment on above: Performed By: #### D AU ####[address] [address] Ethanol Alcoholon 09-30-2017 Ethanol mg/dL Normal <10 [facility] Comment on above: Performed By: #### C DP, ALCB, BMP, TSH ####[address] [address] Ethanol percent <0.010 Normal [facility] Comment on above: Result Comment: Perf ormed at [facility] [address] [place] [address] Performed By: #### C DP, ALCB, BMP, TSH ####[address] [address] Thyroid Stim. Horm.on 2017 Thyroid stimulating hormone (TSH) 0.87 m[IU]/L Normal 0.30-5.00 [facility] Comment on above: Result Comment: Perf ormed at [facility] [address] [place] [address] Performed By: #### C DP, ALCB, BMP, TSH ####[address] [address] [facility] DIGITAL DIAGNOSTIC BILAT ERALon 04-27-2017 [facility] DIGITAL DIAGNOSTIC BILATERAL This is a summary [...] sent to the patient regarding the results.[employer] recommends annual mammograms for women 40years and older.Interpreted by:TIM Robinigned by:Elli Aparicio MD04/27/17CC Recipients:[facility] - FaxFinal result Normal [facility] Encounters Encounter Date Encounter Type Care Provider Facility Start: 07-12-2023 Orders Only Shukri Jeong MD Work Phone: [facility] Start: 11-05-2022 End: 11-06-2022 ambulatory ADI FIGUEROA Facility:[facility] Start: 09-24-2022 End: 09-25-2022 ambulatory DAINA MICHAELMIPATHY . Facility:[facility] Start: 08-25-2022 Encounter for genera l adult medical examination without abnormal findings ADI FIGUEROA [facility] Start: 08-25-2022 Encounter for preprocedural cardiovascular examination DR BEAU WILDER . [facility] Start: 08-25-2022 End: 08-25-[address] [...] 09-30-2017 Emergency department patient visit MEGHANN GEE [facility] Start: 07-20-2017 Patient encounter procedure Shukri Jeong MD Work Phone: [facility] [employer] Start: 04-27-2017 End: 04-28-2017 Ambulatory KENZIE ALMONTE [facility] Procedures Date Procedure Procedure Detail Performing Clinician [...] Td Vaccines (2 - Td or Tdap) [facility] Start: 03-02-2024 Adult BMI Screening Adult BMI Screen ing [facility] Start: 03-02-2024 Tobacco Screening Tobacco Screening [facility] Start: 06-01-2023 Adult BMI Follow Up Plan Adult BMI Follow Up Plan [facility] Start: 02-12-2023 COVID-19 Vaccine ( season) COVID-19 Vaccine ( season) [facility] Start: 02-12-2023 Influenza vaccination Influenza Vacc ine [facility] Start: 08-18-2022 Depression Screening Depression Scre ening [facility] Start: 02-18-2022 Fall Risk Screening Fall Risk Screen ing [facility] Start: 02-18-2022 Medicare Annual Well ness Visit Medicare Annual Wellness Visit [facility] Immunizations Immunization Date Immunization Notes Care Provider Fa cility 03-04-2022 influenza, injectabl e, quadrivalent, preservative free Shukri Jeong MD Work Phone: [facility] 03-04-2022 influenza virus vacc ine, unspecified formulation Shukri Jeong MD Work Phone: [facility] 04-04-2021 influenza, injectabl e, quadrivalent, contains preservative Shukri Jeong MD Work Phone: [facility] 03-13-2021 COVID-19, mRNA, LNP- S, PF, 30mcg/0.3mL Dose Shukri Jeong MD Work Phone: [facility] 08-13-2020 COVID-19, mRNA, LNP- S, PF, 30mcg/0.3mL Dose Shukri Jeong MD Work Phone: [facility] 07-22-2020 COVID-19, mRNA, LNP- S, PF, 30mcg/0.3mL Dose Shukri Jeong MD Work Phone: [facility] 02-06-2020 influenza, injectabl e, quadrivalent, preservative free Shukri Joeng MD Work Phone: [facility] 04-06-2019 zoster vaccine recombinant Shukri Jeong MD Work Phone: [facility] 03-09-2019 influenza, high dose seasonal, preservative-free Shukri Jeong MD Work Phone: [facility] 09-01-2018 zoster vaccine recombinant Shukri Jeong MD Work Phone: [facility] 02-17-2018 Seasonal trivalent influenza vaccine, adjuvanted, preservative free Shukri Jeong MD Work Phone: [facility] 08-26-2017 pneumococcal polysaccharide vaccine, 23 valent Shukri Jeong MD Work Phone: [facility] 02-10-2017 influenza virus vacc ine, unspecified formulation Shukri Jeong MD Work Phone: [facility] 02-20-2016 influenza, seasonal, injectable, preservative free Shukri Jenog MD Work Phone: [facility] 10-09-2015 pneumococcal conjuga te vaccine, 13 valent Shukri Jeong MD Work Phone: [facility] 03-08-2015 Influenza TIV (IM) Shukri soto MD Work Phone: [facility] 07-07-2013 pneumococcal polysaccharide vaccine, 23 valent Shukri Jeong MD Work Phone: [facility] 06-14-2007 pneumococcal polysaccharide vaccine, 23 valromina Jeong MD Work Phone: [facility] 02-26-1999 pneumococcal polysaccharide vaccine, 23 valromina Jeong MD Work Phone: [facility] Payers Date Payer Category Payer Unknown [employer] [facility] HMO/PPO/TRUST [id number] 2022-[facility] [phone] [address] [place] [address] [id number] 2014 Medicare [id number] 2010 Medicare MEDICARE MEDICAR E PART A & B [id number] 2010-Present [phone] [address] [place] [address] [id number] 1959 Medicare [id number] 1959 Medicare [id number] 1959 Unknown [id number] 1945 Unknown [id number] 1945 Unknown [id number] 1945 Unknown [id number] 1945 Unknown [id number] 1945 Unknown [id number] 1945 Unknown [id number] 1945 Unknown [id number] 1945 Unknown [id number] 1945 Unknown [id number] 1945 Unknown [id number] 1945 Unknown [id number] 1945 Unknown [id number] Social History Date Type Detail Facility [facility]: [facility] Start: 06-01-2022 Tobacco use and exposure Smoke less tobacco non-user [facility] Start: 03-02-2023 Alcohol intake Current drinke r of alcohol (finding) [facility] Start: 03-09-2019 End: 06-26-2020 History of Social function [facility] Start: 03-09-2019 End: 06-26-2020 Social connection and isolation panel [facility] Frequency of Communi cation with Friends and Family Three times a week [facility] Start: 03-09-2019 Education 14 [facility] Start: 1945 Sex Assigned At Not on file [facility] Consultation note 09-24-2022 Note Date & [...] this infrequently. She is no longer on Homeland, since at least July. Her GERALDO on [...] our patients to inform us about any [id number] medications or herbal remedies/nutritional supplements/alternative remedies. 2. [...] options with their primary care provider. [facility] Consultation note 08-20-2022 Note Date & [...] Medications include Celebrex 200 mg daily, multivitamin, Homeland 5/325 daily p.r.n., Excedrin and baclofen 10 [...] L4, L5. She is to continue her Homeland 5/325 daily p.r.n. and I highly encouraged her to use a heat rub and heat application once to twice daily. Patient agrees with this plan of care and will be brought back to the clinic thereafter. [facility] Consultation note 07-23-2022 Note Date & [...] greatly aggravate her pain. Current medications include Homeland 5/325 daily p.r.n., baclofen 10 mg q.h.s. [...] followed up in the office thereafter. [facility] Consultation note 06-23-2022 Note Date & [...] the possibility of a neurosurgical consult at [facility]. The patient's PAST MEDICAL HISTORY / [...] PLAN: We will start the patient on Homeland 5/325 one tablet p.o. daily. The patient [...] like to proceed. CC: DEIRDRE Bill [facility] Instructions Note Date & Type Note Facility Instructions Not on filedocumented in this en counter [facility] Summary Purpose Family History No Family History Records FoundNo Family History Records Found Advance Directives Documents on File Type Date Recorded Patient Home Administrator Expl anation Living Will 10/11/2015 2:28 PM Additional Source Comments INFORMATION SOURCE (unrecogn ized section and content) DATE CREATED AUTHOR 12/02/2017 [facility] DATE CREATED AUTHOR AUTHOR'S ORGANIZ ATION 11/20/2022 [facility] Teams (unrecognized sec tion and content) [employer] Relationship Specialty Start Date End Date Adi Figueroa APRN-PEDRO [address] [id number] PCP - General Primary Care 06/01/22 FOR [...] BE BASED ON THE PRIMARY CLINICAL RECORDS. [facility]. provides no warranty or guarantee of the accuracy or completeness of information in this document.
[2024-01-12 11:32] LABS: Basophils Percent Auto 0.8 % (0.2-2.0); Eosinophils Absolute Auto 0.2 10^3/uL (0.0-0.7); Eosinophils Percent Auto 4.2 % (0.9-7.0); Hematocrit 31.4 % (36.0-48.0); Hemoglobin 10.1 g/dL (12.0-16.0); Immature Granulocytes Abs Auto 0.01 10^3/uL (0.00-0.03); Immature Granulocytes Pct Auto 0.2 % (0.0-0.5); Lymphocytes Absolute Auto 1.2 10^3/uL (1.2-3.8); Mean Corpuscular HGB Conc 32.2 g/dL (29.9-35.2); Mean Corpuscular Hemoglobin 32.5 pg (26.7-34.0); Mean Platelet Volume 9.9 fL (9.5-13.5); Monocytes Absolute Auto 0.5 10^3/uL (0.3-0.8); Monocytes Percent Auto 9.1 % (1.7-12.0); Neutrophils Absolute Auto 3.1 10^3/uL (1.4-6.5); Neutrophils Percent Auto 61.7 % (43.0-75.0); Platelet Count 207 10^3/uL (150-450); Red Blood Count 3.11 10^6/uL (4.20-5.40); Red Cell Distribution Width 12.5 % (11.0-15.0); Reticulocyte Pct Auto 1.72 % (0.60-3.10)
[2024-01-12 11:43] LABS: Alanine Aminotransferase 19 U/L (14-59); Albumin Globulin Ratio 1.2; Albumin Level 3.7 g/dL (3.4-5.0); Alkaline Phosphatase 83 U/L (46-116); Anion Gap 11.9; Aspartate Amino Transferase 16 U/L (15-37); BUN Creatinine Ratio 18.3; Bilirubin Total 0.3 mg/dL (0.2-1.0); Calcium 9.1 mg/dL (8.5-10.1); Carbon Dioxide 28.8 mmol/L (21.0-32.0); Chloride 102 mmol/L (98-107); Estimated GFR (African America >60 (>=60); Estimated GFR (Non-African Ame 51 (>=60); Globulin 3.1 g/dL; Glucose 96 mg/dL (74-106); Lactate Dehydrogenase 153 U/L (81-234); Potassium 4.7 mmol/L (3.5-5.1); Sodium 138 mmol/L (136-145); Total Protein 6.8 g/dL (6.4-8.2)
[2024-01-12 13:10] LABS: Percent Iron Saturation 18.2 %
[2024-01-13 15:09] LABS: Erythropoietin (EPO), Serum 24.9 mIU/mL (2.6-18.5)
== END 2024-01-12 10:50 | disposition home or self-care (01) ==
LOC: LAB 10:51
PROVIDERS: PCP Nurse Practitioner Primary Care; Visit Provider Internal Medicine Hematology & Oncology
DX: D50.9 Iron deficiency anemia, unspecified (principal); K90.9 Intestinal malabsorption, unspecified
CPT/HCPCS: 36415; 80053; 82668; 82728; 83540; 83550; 83615; 85025; 85045

== ENCOUNTER 2024-01-18 07:22 | Outpatient (RCR) | payer MEDICARE, SELFPAY | END 2024-02-12 23:59 | disposition home or self-care (01) | LOC: HEMC 07:22 | PROVIDERS: PCP Nurse Practitioner Primary Care; Visit Provider Internal Medicine Hematology & Oncology | DX: D50.9 Iron deficiency anemia, unspecified (principal); K90.9 Intestinal malabsorption, unspecified; Z85.3 Personal history of malignant neoplasm of breast | CPT/HCPCS: G0463 ==

== ENCOUNTER 2024-02-28 08:39 | Outpatient (OUT) | payer MEDICARE, SELFPAY ==
--- NOTE | 2024-02-28 08:41 | MM_ITS ---
Patient Name: THI LINDSEY MR#: [id number] : 1945 Exam Date: 02/28/2024 Ordering Doctor: Chanell Chen RADIOLOGY REPORT PROCEDURE: MM TOMOSYNTHESIS SCREENING BI COMPARISON: MG MAMM SCREEN 3D GONZALEZ CAD, 03/05/2022. MM TOMOSYNTHESIS SCREENING BI, 02/24/2023. INDICATIONS: Screening Calculator Name NCI Breast Cancer Risk Assessment Tool 5 Year Breast Cancer Risk n/a% Lifetime Breast Cancer Risk n/a% Personal Breast Cancer Yes, 2013 Personal Ovarian Cancer No Treatments lumpectomy, radiation and chemotherapy Family Cancers Grandmother-paternal with breast cancer at age 76; Father with unknown cancer at age ~72. LOCATION: [facility] BREAST COMPOSITION: There are scattered areas of fibroglandular density. FINDINGS: DIAGNOSTIC CATEGORY 2--BENIGN FINDING. NO CHANGE FROM COMPARISON. Scattered benign-appearing calcifications are present. Scattered benign-appearing lymph nodes are present. RIGHT BREAST: No significant suspicious finding. Asymmetrically small, stable. Area of architectural distortion and calcification in the axillary tail, unchanged and likely postsurgical in nature. LEFT BREAST: No significant suspicious finding. RECOMMENDATIONS: ROUTINE MAMMOGRAM AND CLINICAL EVALUATION IN 12 MONTHS. PLEASE NOTE: A NORMAL MAMMOGRAM DOES NOT EXCLUDE THE POSSIBILITY OF BREAST CANCER. A CLINICALLY SUSPICIOUS PALPABLE LUMP SHOULD BE BIOPSIED. Dictated by: Michael Arndt MD on 02/28/2024 at 10:58 Approved by: Michael Arndt MD on 02/28/2024 at 10:59
--- OUTSIDE RECORDS SUMMARY | 2024-02-28 08:57 | XMS_ITS | CCD ---
Author Organization [facility] CliniSyny Care Team Providers Care 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 Name Role Phone KENZIE ALMONTE Unavailable Unavailable SUNDHEIMER, MEGHANN B Unavailable Unavailable SUNDHEIMER, MEGHANN B Unavailable Unavailable BRIDGER PARADA Unavailable Unavailabl e LAKSHMIPATHY ., SHEATH Attending Natasha vailable SHAMMO, ADI Primary Care Unavailable LAKSHMIPATHY ., DAINA Admitting Natasha vailable LAKSHMIPATHY ., DAINA Consulting Natasha vailable WILDER ., DR BEAU Galvan Admitting Unavailable MCLEAN ., DARION Consulting Unavailable SHAMMO, ADI Primary Care Unavailable WILDER ., DR BEAU Galvan Attending Unavailable WILDER ., DR BEAU Galvan Attending Unavailable WILDER ., DR BEAU Galvan Admitting Unavailable SHAMMO, ADI Primary Care Unavailable WLIDER ., DR BEAU Galvan Consulting Unavailable WILDER [...] Consulting Unavailable MISC, DR CABRERA Attending Unavailable MILLBROOK, DR JOSE RAFAEL Mendes Consulting Unavailable MISC, DR CABRERA Admitting Unavailable MISC, DR CABRERA Consulting Unavailable WILDER ., DR BEAU Galvan Attending Unavailable TINA ., DR BEAU Galvan Admitting Unavailable [facility] Unavailable TINA ., DR BEAU Galvan Consulting Unavailable TINA ., DR BEAU Galvan Attending Unavailable TINA ., DR BEAU Galvan Admitting Unavailable [facility] Unavailable TINA ., DR BEAU Galvan Consulting Unavailable TINA ., DR BEAU Galvan Admitting Unavailable WILDER ., DR BEAU Galvan Attending Unavailable TINA ., DR BEAU Galvan Consulting Unavailable [facility] Primary Care Unavailable NKECHI ALLEN Consulting [facility]available [facility] Provider [phone] MD Claribel Pickett Attending Provider [phone] CAROLINE Chen [facility] Care Provider Claribel Pickett Attending Unavailable Claribel Pickett Admitting Unavailable GustavoChanell Barbour [facility] Unavailable Allergies Allergy Classification Reported Allergen(s) Allergy Type Date of Onset Reaction(s) Facility (1 source) Hay Fever And Allergy Relief Propensity to adverse reactions to drug 06-20-2014 [facility] (1 source) Other Propensity to adverse reactions 12-24-2015 [facility] Medications Current Medications Medication Drug Class(es) Dates Sig (Normalized) Sig (Original) ALPRAZolam 0.25 mg oral tablet (2 sources) Benzodiazepine Start: 02-07-2024 take 0.25 mg by mouth once daily Alprazolam Active 0.25 MG PO Daily February 07, 2024 12:00am Start: 11-14-2020 take 1 tablet by joyce th once daily ALPRAZolam (XANAX) 0.25 mg tablet Take 1 tablet (0.25 mg total) by mouth nightly. 0 11/14/2020 Active ARIPiprazole 2 mg oral tablet (2 sources) Atypical Antipsychotic Start: 02-07-2024 take 1 tablet by mouth once daily Aripiprazole (Abilify) 2 mg tablet Active 2 MG PO Daily February 07, 2024 12:00am take 1 tablet by mouth in the mo rning ARIPiprazole (ABILIFY) 2 mg tablet Take 1 tablet (2 mg total) by mouth in the morning. 0 Active citalopram 20 mg oral tablet (1 source) Serotonin Reuptake Inhibitor Start: 02-07-2024 take 1 tablet by mouth once daily Citalopram (Celexa) 20 mg tablet Active 20 MG PO Daily February 07, 2024 12:00am hydroCHLOROthiazide 12.5 mg / lisinopril 10 mg oral tablet (3 sources) Thiazide Diuretic, Angiotensin Converting Enzyme Inhibitor Start: 02-07-2024 take 1 tablet by mouth once daily Lisinopril-Hydr ochlorothiazide Active 1 TAB PO Daily February 07, 2024 12:00am Start: 03-05-2023 take 0.5 tablet by mouth once in the morning lisinopril-hydroCHLOROthiazide (PRINZIDE,ZESTORETIC) 20-25 mg per tablet Take 0.5 tablets by mouth in the morning and 0.5 tablets before bedtime. 90 tablet 3 03/05/2023 Active Start: 12-11-2022 take 10-12.5 mg by mouth once at bedtime lisinopril-hydroCHLOROthiazide (PRINZIDE,ZESTORETIC) 10-12.5 mg per tablet Take 1 tablet by mouth in the morning and at bedtime. 180 tablet 3 12/11/2022 Active lansoprazole 15 mg delayed release oral capsule (2 sources) Proton Pump Inhibitor Start: 02-07-2024 take 15 mg by mouth once daily Lansoprazole Active 15 MG PO Daily February 07, 2024 12:00am take 1 tablet by mouth in the mo rning lansoprazole (PREVACID SOLUTAB) 15 mg disintegrating tablet Indications: heartburn Take 1 tablet (15 mg total) by mouth in the morning. Indications: heartburn. 0 Active levocetirizine dihydrochloride 5 mg oral tablet (2 sources) Histamine-1 Receptor Antagonist Start: 02-07-2024 take 5 mg by mouth once daily at bedtime Levocetirizine Active 5 MG PO Daily at bedtime February 07, 2024 12:00am take 1 tablet by mouth once fred y levocetirizine (XYZAL) 5 mg tablet Take 1 tablet (5 mg total) by mouth nightly. 0 Active seofcpyy-orfq-QI-calcium &mins (THERAGRAN-M) 9 mg iron-400 mcg tablet (1 source) sjoykfmy-hszc-WR -calcium &mins (THERAGRAN-M) 9 mg iron-400 mcg tablet Indications: mineral deficiency , vitamin deficiency Take 1 tablet by mouth in the morning. Indications: lack in minerals, vitamin deficiency. 0 Active Multivitamin (Daily Multi-Vitamin) tablet (1 source) Star t: 01-13 take 1 tablet by mouth once daily Multivitamin (Daily Multi-Vitamin) tablet Active 1 TAB PO Daily February 07, 2024 12:00am pravastatin sodium 20 mg ora l tablet (2 sources) HMG-CoA Reductase Inhibitor Star t: 01-13 take 20 mg by mouth once daily Pravastatin Active 20 MG PO Daily February 07, 2024 12:00am Start: 09-17-2021 pravastatin (P RAVACHOL) 20 mg tablet Indications: Dyslipidemia TAKE 1 [...] Test Name Value Interpretation Reference Range Facility Activated partial thrombopla stin time (aPTT) in platelet poor plasma by coagulation aOrdered By: Claribel Pickett on 02-07-2024 aPTT Coag (PPP) [Time] 36.0 s 25.1-36.5 [facility] Comment on above: A hematocrit value g reater than 55% may lead to inaccurate results in coagulation testing. Patients having hematocrit values >55% require a special collection tube for coagulation studies. Please contact the laboratory at [phone] for redraw instructions. Automated basophil %Ordered By: Claribel Pickett on 02-07-2024 Basophils/100 WBC (Bld) 0.6 % Normal . [facility] Comment on above: Order Comment: STAT FOR CT BX Performed By: #### C BC, PP #### [address] Automated basophil countOrde red By: Claribel Pickett on 02-07-2024 Basophils (Bld) [#/Vol] 0.0 10*3/uL Normal 0.0-0.2 [facility] Comment on above: Order Comment: STAT FOR CT BX Result Comment: PERF ORMED BY: [place] [address] PATHOLOGIST COGNOS TM1 DEVELOPER KATRINA PATTERSON M.D. Performed By: #### C BC, PP #### [address] Automated blood monocyte cou ntOrdered By: Claribel Pickett on 02-07-2024 Monocytes (Bld) [#/Vol] 0.6 10*3/uL Normal 0.0-0.8 [facility] Comment on above: Order Comment: STAT FOR CT BX Performed By: #### C BC, PP #### [address] Automated eosinophil %Ordere d By: Claribel Pickett on 02-07-2024 Eosinophils/100 WBC (Bld) 2.5 % Normal . [facility] Comment on above: Order Comment: STAT FOR CT BX Performed By: #### C BC, PP #### [facility] [address] [place] [address] Automated eosinophil countOr dered By: Claribel Pickett on 02-07-2024 Eosinophils (Bld) [#/Vol] 0.2 10*3/uL Normal 0.0-0.45 [facility] Comment on above: Order Comment: STAT FOR CT BX Performed By: #### C BC, PP #### [address] Automated monocyte %Ordered By: Claribel Pickett on 02-07-2024 Monocytes/100 WBC (Bld) 7.6 % Normal . [facility] Comment on above: Order Comment: STAT FOR CT BX Performed By: #### C BC, PP #### [facility] [address] [place] [address] Automated neutrophil %Ordere d By: Claribel Pickett on 02-07-2024 Neutrophils/100 WBC (Bld) 72.6 % Normal . [facility] Comment on above: Order Comment: STAT FOR CT BX Performed By: #### C BC, PP #### [address] guided bone marrow bx/asp iron 02-07-2024 CT guided bone marrow bx/aspir [facility] [place] [address] [place] [address] CT Scan Report Signed Patient: Elli Lindsey MR#: [id number] : 1945 Acct:[id number] Age/Sex: 78 / F ADM Date: 02/07/24 Loc: CT Room: Type: [facility] Attending Dr: Claribel Pickett MD Copies to: Claribel Pickett MD Ordering Provider: Claribel Pickett MD Date of Service: 02/07/24 CT/CT guided bone marrow bx/aspir: D64.9, D50.9, K90.9 CT GUIDED BONE MARROW BIOPSY OF THE RIGHT ILIAC BONE: CLINICAL HISTORY: Refractory anemia. FINDINGS: After questions were answered, informed consent was obtained. The patient was placed prone on the CT table and the right iliac bone was selected for biopsy. The skin over the pelvis was prepped and draped in normal sterile fashion. 1% lidocaine was utilized for local anesthesia. Utilizing CT guidance, an 11-gauge OnControl biopsy needle was advanced into the right iliac bone. 12mL of bone marrow was aspirated and given to pathology. After the sample was deemed adequate by pathology, a core biopsy was obtained and needle was withdrawn. Hemostasis was achieved. Bandage was applied. The patient tolerated procedure well without immediate complication. Please note that the patient was monitored throughout the procedure by nursing personnel. This CT exam was performed using one or more following dose reduction techniques: Automated exposure control, adjustment of the mA and/or kV according to patient size, or use of iterative reconstruction technique. CT/CT guided bone marrow bx/aspir IMPRESSION: Successful CT-guided bone marrow biopsy. Impression dictated by: Sebastian Adams Jr., D.O.02/07/2024 2:08 PM Dictation Location: [place] [address] Transcribed By: [facility] 02/07/24 1408 Dictated By: Sebastian Adams Jr, DO 02/07/24 1407 Signed By: 02/07/24 1408 Normal [facility] Coagulation Profileon 2023 aPTT Coag (Bld) [Time] 36.0 s Normal 25.1-36.5 [facility] Comment on above: Order Comment: STAT FOR CT BX Result Comment: A he matocrit value greater than 55% may lead to inaccurate results in coagulation testing. Patients having hematocrit values >55% require a special collection tube for coagulation studies. Please contact the laboratory at [phone] for redraw instructions. PERFORMED BY: [place] [address] PATHOLOGIST COGNOS TM1 DEVELOPER KATRINA PATTERSON M.D. Performed By: #### C BC, PP #### [address] Complete Blood Count Auto Di ffon 02-07-2024 Mean Corpuscular HGB Conc 34.1 g/dL Normal 32.0-35.0 [facility] Comment on above: Order Comment: STAT FOR CT BX Performed By: #### C BC, PP #### [address] NRBC% 0.0 /100{WBC} Normal 0-0.5 [facility] Comment on above: Order Comment: STAT FOR CT BX Performed By: #### C BC, PP #### [address] Erythrocyte distribution wid th [Ratio] by Automated countOrdered By: Claribel Nieves on 02-07-2024 Erythrocyte distribution width (RBC) [Ratio] 13.8 % Normal 11.9-15.3 [facility] Comment on above: Order Comment: STAT FOR CT BX Performed By: #### C BC, PP #### [address] Erythrocytes [#/volume] in B lood by Automated countOrdered By: Claribel Nieves on 02-07-2024 RBC (Bld) [#/Vol] 3.45 10*6/uL Low 3.60-5.00 [facility] Comment on above: Order Comment: STAT FOR CT BX Performed By: #### C BC, PP #### [address] Hematocrit [Volume Fraction] of Blood by Automated countOrdered By: Claribel Nieves on 02-07-2024 Hematocrit (Bld) [Volume fraction] 33.8 % Low 34.0-46.4 [facility] Comment on above: Order Comment: STAT FOR CT BX Performed By: #### C BC, PP #### [address] Hemoglobin [Mass/volume] in BloodOrdered By: Claribel Nieves on 02-07-2024 Hemoglobin (Bld) [Mass/Vol] 11.5 g/dL Low 11.8-15.4 [facility] Comment on above: Order Comment: STAT FOR CT BX Performed By: #### C BC, PP #### [address] [address] [facility] INR in Platelet poor plasma by Coagulation assayOrdered By: Claribel Pickett on 02-07-2024 INR Coag (PPP) [Relative time] 1.0 {INR} Normal [facility] Comment on above: INR Therapeutic Rang e A) Pre- and Peroperative OAT started two weeks before surgery. NOT HIP SURGERY: 1.5 - 2.5 HIP SURGERY: 2 - 3B) Primary and secondary prevention of venous THROMBOSIS: 2 - 3C) Active venous thrombosis, pulmonary embolismand prevention of recurrent venous thrombosis: 2 - 3D) Prevention of arterial thromboembolismincluding patients with mechanical heart valves: 3 - 4.5 Order Comment: STAT FOR CT BX Result Comment: INR Therapeutic Range A) Pre- and Peroperative OAT started two weeks before surgery. NOT HIP SURGERY: 1.5 - 2.5 HIP SURGERY: 2 - 3 B) Primary and secondary prevention of venous THROMBOSIS: 2 - 3 C) Active venous thrombosis, pulmonary embolism and prevention of recurrent venous thrombosis: 2 - 3 D) Prevention of arterial thromboembolism including patients with mechanical heart valves: 3 - 4.5 Performed By: #### C BC, PP #### [facility] [address] Leukocytes [#/volume] correc denita for nucleated erythrocytes in Blood by Automated counOrdered By: Claribel Pickett on 02-07-2024 WBC corrected for nucl RBC Auto (Bld) [#/Vol] 8.0 10*3/uL 3.8-11.6 [facility] Leukocytes [#/volume] in Blo od by Automated countOrdered By: Claribel Pickett on 02-07-2024 WBC (Bld) [#/Vol] 8.0 10*3/uL Normal 3.8-11.6 [facility] Comment on above: Order Comment: STAT FOR CT BX Performed By: #### C BC, PP #### [facility] [address] [place] [address] [place] Lymphocytes [#/volume] in Bl ood by Automated countOrdered By: Claribel Pickett on 02-07-2024 Lymphocytes (Bld) [#/Vol] 1.3 10*3/uL Normal 1.00-4.8 [facility] Comment on above: Order Comment: STAT FOR CT BX Performed By: #### C BC, PP #### [place] [address] [place] Lymphocytes/100 leukocytes i n Blood by Automated countOrdered By: Claribel Pickett on 02-07-2024 Lymphocytes/100 WBC (Bld) 16.7 % Normal . [facility] Comment on above: Order Comment: STAT FOR CT BX Performed By: #### C BC, PP #### [address] MCH [Entitic mass] by Automa denita countOrdered By: Claribel Pickett on 02-07-2024 MCH (RBC) [Entitic mass] 33.5 pg Normal 24.7-34.3 [facility] Comment on above: Order Comment: STAT FOR CT BX Performed By: #### C BC, PP #### [address] MCHC Auto (RBC) [Mass/Vol]Or dered By: Claribel Pickett on 02-07-2024 MCHC (RBC) [Mass/Vol] 34.1 g/dL 32.0-35.0 [facility] MCV [Entitic volume] by Auto mated countOrdered By: Claribel Pickett on 02-07-2024 MCV (RBC) [Entitic vol] 98.1 fL Normal 80-100 [facility] Comment on above: Order Comment: STAT FOR CT BX Performed By: #### C BC, PP #### [place] [address] [place] Neutrophils [#/volume] in Bl ood by Automated countOrdered By: Claribel Pickett on 02-07-2024 Neutrophils (Bld) [#/Vol] 5.8 10*3/uL Normal 1.8-7.7 [facility] Comment on above: Order Comment: STAT FOR CT BX Performed By: #### C BC, PP #### [place] [address] [place] Nucleated erythrocytes [Pres ence] in Blood by Automated countOrdered By: Claribel Pickett on 02-07-2024 Nucleated RBC Auto Ql (Bld) 0.0 /100{WBC} 0-0.5 [facility] Pathology Request for Lab Co rpon 02-07-2024 Pathology Request for Lab Samir Normal [facility] Comment on above: Order Comment: BM BI OPSY Result Comment: See report. Scanned copy available in EMR. PERFORMED BY: [place] [address] PATHOLOGIST [employer] TM1 DEVELOPER KATRINA PATTERSON M.D. Performed By: #### P ATH TO [facility] #### [facility] [address] [place] [address] Platelet mean volume [Entiti c volume] in Blood by Automated countOrdered By: Claribel Pickett on 02-07-2024 Platelet mean volume (Bld) [Entitic vol] 7.2 fL Normal 6.3-10.7 [facility] Comment on above: Order Comment: STAT FOR CT BX Performed By: #### C BC, PP #### [address] Platelets [#/volume] in Bloo d by Automated countOrdered By: Claribel Pickett on 02-07-2024 Platelets (Bld) [#/Vol] 271 10*3/uL Normal 150-450 [facility] Comment on above: Order Comment: STAT FOR CT BX Performed By: #### C BC, PP #### [facility] [address] [place] [address] Prothrombin time (PT)Ordered By: Claribel Pickett on 02-07-2024 PT Coag (PPP) [Time] 11.8 s Normal 9.0-12.9 [facility] Comment on above: A hematocrit value g reater than 55% may lead to inaccurate results in coagulation testing. Patients having hematocrit values >55% require a special collection tube for coagulation studies. Please contact the laboratory at [phone] for redraw instructions. Order Comment: STAT FOR CT BX Result Comment: A he matocrit value greater than 55% may lead to inaccurate results in coagulation testing. Patients having hematocrit values >55% require a special collection tube for coagulation studies. Please contact the laboratory at [phone] for redraw instructions. Performed By: #### C BC, PP #### [address] US CAROTID ART BILon 023 US CAROTID [...] by: JAMIR SANCHEZ Date: 2022-11-06 05:46 Normal [facility] BNPon 11-05-2022 Natriuretic peptide B (Bld) [Mass/Vol] 55.0 pg/mL Normal <=1,800.0 [facility] Comment on above: Performed By: #### H STROPN, CMP, BNP, MG #### [facility] [address] [place] [address] [address] Linda Park ECHOCARDIO M/2D COMPLETEon 0 11-05-2022 ECHOCARDIO M/2D COMPLETE Patient: ELLI LINDSEY Exam Date: 11/05/2022 : 1945 Gender:F Ordering : ADI WANGHENRI Admission #: [id number] Family : Order #: [id number] CLICK HERE TO VIEW EXAM ECHOCARDIOGRAM REPORT [...] Lopez M.D. on 11/08/2022 at 15:17 Normal [facility] MAGNESIUMon 11-05-2022 Magnesium [Mass/Vol] 2.0 mg/dL Normal 1.8-2.4 [facility] Comment on above: Performed By: #### H STROPN, CMP, BNP, MG #### [facility] [address] [place] [address] Dr. Linda Park PROF 14(COMP METB)on 023 Albumin [Mass/Vol] 3.7 g/dL Normal 3.4-5.0 [facility] Comment on above: Performed By: #### H STROPN, CMP, BNP, MG #### [facility] [address] [place] [address] [address] Linda Park Albumin/Globulin [Mass ratio] 1.1 {ratio} Normal [facility] Comment on above: Performed By: #### H STROPN, CMP, BNP, MG #### [facility] [address] [place] [address] [address] Linda Park ALP [Catalytic activity/Vol] 84 U/L Normal 46-116 [facility] Comment on above: Performed By: #### H STROPN, CMP, BNP, MG #### [facility] [address] [place] [address] Dr. Linda Park ALT [Catalytic activity/Vol] 17 U/L Normal 14-59 [facility] Comment on above: Performed By: #### H STROPN, CMP, BNP, MG #### [facility] [address] [place] [address] [address] Linda Park Anion gap [Moles/Vol] 10.8 mmol/L Normal [facility] Comment on above: Performed By: #### H STROPN, CMP, BNP, MG #### [facility] [address] [place] [address] Dr. Linda Park AST [Catalytic activity/Vol] 15 U/L Normal 15-37 [facility] Comment on above: Performed By: #### H STROPN, CMP, BNP, MG #### [facility] [address] [place] [address] Dr. Linda Park Bilirubin [Mass/Vol] 0.2 mg/dL Normal 0.2-1.0 [facility] Comment on above: Performed By: #### H STROPN, CMP, BNP, MG #### [facility] [address] [place] [address] Dr. Linda Park Calcium [Mass/Vol] 9.1 mg/dL Normal 8.5-10.1 [facility] Comment on above: Performed By: #### H STROPN, CMP, BNP, MG #### [facility] [address] [place] [address] [address] Linda Park Chloride [Moles/Vol] 104 mmol/L Normal 98-107 [facility] Comment on above: Performed By: #### H STROPN, CMP, BNP, MG #### [facility] [address] [place] [address] [address] Linda Park CO2 [Moles/Vol] 30.8 mmol/L Normal 21.0-32.0 [facility] Comment on above: Performed By: #### H STROPN, CMP, BNP, MG #### [facility] [address] [place] [address] Dr. Linda Park Creatinine [Mass/Vol] 0.94 mg/dL Normal 0.55-1.02 [facility] Comment on above: Performed By: #### H STROPN, CMP, BNP, MG #### [facility] [address] [place] [address] Dr. Linad Park EGFR-AF RUSSIAN >60 Normal >=60 [facility] Comment on above: Performed By: #### H STROPN, CMP, BNP, MG #### [facility] [address] [place] [address] Dr. Linda Park EGFR-NON AF RUSSIAN 58 mL/min/1.73m2 Critically low >=60 [facility] Comment on above: Performed By: #### H STROPN, CMP, BNP, MG #### [facility] [address] [place] [address] Dr. Linda Park Globulin (S) [Mass/Vol] 3.5 g/dL Normal [facility] Comment on above: Performed By: #### H STROPN, CMP, BNP, MG #### [facility] [address] [place] [address] Dr. Linda Park Glucose [Mass/Vol] 78 mg/dL Normal 74-106 [facility] Comment on above: Performed By: #### H STROPN, CMP, BNP, MG #### [facility] [address] [place] [address] Dr. Linda Park Potassium [Moles/Vol] 4.6 mmol/L Normal 3.5-5.1 [facility] Comment on above: Performed By: #### H STROPN, CMP, BNP, MG #### [facility] [address] [place] [address] Dr. Linda Park Protein [Mass/Vol] 7.2 g/dL Normal 6.4-8.2 [facility] Comment on above: Performed By: #### H STROPN, CMP, BNP, MG #### [facility] [address] [place] [address] Dr. Linda Park Sodium [Moles/Vol] 141 mmol/L Normal 136-145 [facility] Comment on above: Performed By: #### H STROPN, CMP, BNP, MG #### [facility] [address] [place] [address] Dr. Linda Park Urea nitrogen [Mass/Vol] 17.0 mg/dL Normal 7.0-18.0 [facility] Comment on above: Performed By: #### H STROPN, CMP, BNP, MG #### [facility] [address] [place] [address] Dr. Linda Park Urea nitrogen/Creatinin e [Mass ratio] 18.1 mg/mg Normal [facility] Comment on above: Performed By: #### H STROPN, CMP, BNP, MG #### [facility] [address] [place] [address] Dr. Linda Park TROPONIN, HIGH SENSITIVITYon 11-05-2022 HSTROP 9.2 pg/mL Normal 4.0-51.3 [facility] Comment on above: Result Comment: CUT- OFF POINTS HAVE BEEN ESTABLISHED BASED ON THE FOURTH UNIVERSAL DEFINITIONS OF MYOCARDIAL INFARCTION. THE UPPER REFERENCE LIMIT (URL) OF TROPONIN, DEFINED THE 99TH PERCENTILE OF cTnI DISTRIBUTION IN A REFERENCE POPULATION, HAS BEEN CONFIRMED THE DECISION THRESHOLD FOR CA DIAGNOSIS. Performed By: #### H STROPN, CMP, BNP, MG #### [facility] [address] [place] [address] Dr. Linda Park XR CHEST 2 Von [...] TERRENCE ALBERTO Date: 2022-11-05 18:32 Normal [facility] HEMOGRAM AND PLATELon 2022 Hematocrit (Bld) [Volume fraction] 27.8 % Critically low 36.0-48.0 [facility] Comment on above: Performed By: #### H STROPN, CMP, BNP, MG #### [facility] [address] [place] [address] [address] Linda Park Hemoglobin (Bld) [Mass/Vol] 8.8 g/dL Critically low 12.0-16.0 [facility] Comment on above: Performed By: #### H STROPN, CMP, BNP, MG #### [facility] [address] [place] [address] [address] Linda [place] MCH (RBC) [Entitic mass] 29.0 pg Normal 26.7-34.0 [facility] Comment on above: Performed By: #### H STROPN, CMP, BNP, MG #### [facility] [address] [address] [address] Linda Park MCHC (RBC) [Mass/Vol] 31.7 g/dL Normal 29.9-35.2 [facility] Comment on above: Performed By: #### H STROPN, CMP, BNP, MG #### [facility] [address] [address] [address] Linda Park MCV (RBC) [Entitic vol] 91.7 fL Normal 81.0-99.0 [facility] Comment on above: Performed By: #### H STROPN, CMP, BNP, MG #### [facility] [address] [place] [address] Dr. Linda Park PLT 217 103/ul Normal 150-450 [facility] Comment on above: Performed By: #### H STROPN, CMP, BNP, MG #### [facility] [address] [place] [address] Dr. Linda Park RBC 3.03 106/ul Critically low 4.20-5.40 [facility] Comment on above: Performed By: #### H STROPN, CMP, BNP, MG #### [facility] [address] [place] [address] Dr. Linda Park WBC 6.4 103/ul Normal 4.0-11.0 [facility] Comment on above: Performed By: #### H STROPN, CMP, BNP, MG #### [facility] [address] [place] [address] Dr. Linda Park LIPID PROFILEon 08-24-2022 CHOL-HDL RATIO NORM SEE BELOW Normal [facility] Comment on above: Result Comment: 3.3 - 4.4 LOW RISK 4.4 - 7.1 AVERAGE RISK 7.1 - 11.0 MODERATE RISK >11.0 HIGH RISK Performed By: #### H STROPN, CMP, BNP, MG #### [facility] [address] [place] [address] Dr. Linda Park Cholesterol [Mass/Vol] 166 mg/dL Normal <=200 [facility] Comment on above: Performed By: #### H STROPN, CMP, BNP, MG #### [facility] [address] [place] [address] Dr. Linda Park Cholesterol in HDL [Mass/Vol] 54 mg/dL Normal 40-60 [facility] Comment on above: Performed By: #### H STROPN, CMP, BNP, MG #### [facility] [address] [place] [address] Dr. Linda Park Cholesterol in LDL [Mass/Vol] 70.8 mg/dL Normal [facility] Comment on above: Performed By: #### H STROPN, CMP, BNP, MG #### [facility] [address] [address] [address] Linda Park Cholesterol.total/ Cholesterol in HDL [Mass ratio] 3.1 {ratio} Normal [facility] Comment on above: Performed By: #### H STROPN, CMP, BNP, MG #### [facility] [address] [address] [address] Linda Park HDL NORMAL > or = 60 mg/dl - LO W CARDIOVASCULAR RISK <40 mg/dl - HIGH CARDIOVASCULAR RISK Normal [facility] Comment on above: Performed By: #### H STROPN, CMP, BNP, MG #### [facility] [address] [address] [address] Linda Park LDL CALC NORMAL SEE BELOW Normal [facility] Comment on above: Result Comment: <100 mg/dl OPTIMAL 100 - 129 mg/dl NEAR OR ABOVE OPTIMAL 130 - 159 mg/dl BORDERLINE HIGH 160 - 189 mg/dl HIGH >190 mg/dl VERY HIGH Performed By: #### H STROPN, CMP, BNP, MG #### [facility] [address] [address] [address] Linda Park Triglyceride [Mass/Vol] 206 mg/dL Critically high <=150 [facility] Comment on above: Performed By: #### H STROPN, CMP, BNP, MG #### [facility] [address] [address] [address] Linda Park VLDL CALC 41.2 mg/dL Normal [facility] Comment on above: Performed By: #### H STROPN, CMP, BNP, MG #### [facility] [address] [address] [address] Linda Park PROF 14(COMP METB)on 023 Albumin [Mass/Vol] 3.7 g/dL Normal 3.4-5.0 [facility] Comment on above: Performed By: #### H STROPN, CMP, BNP, MG #### [facility] [address] [address] [address] Linda Park Albumin/Globulin [Mass ratio] 1.1 {ratio} Normal [facility] Comment on above: Performed By: #### H STROPN, CMP, BNP, MG #### [facility] [address] [address] [address] Linda Park ALP [Catalytic activity/Vol] 84 U/L Normal 46-116 [facility] Comment on above: Performed By: #### H STROPN, CMP, BNP, MG #### [facility] [address] [address] [address] Linda Park ALT [Catalytic activity/Vol] 17 U/L Normal 14-59 [facility] Comment on above: Performed By: #### H STROPN, CMP, BNP, MG #### [facility] [address] [address] [address] Linda Park Anion gap [Moles/Vol] 11.8 mmol/L Normal [facility] Comment on above: Performed By: #### H STROPN, CMP, BNP, MG #### [facility] [address] [address] [address] Linda Park AST [Catalytic activity/Vol] 19 U/L Normal 15-37 [facility] Comment on above: Performed By: #### H STROPN, CMP, BNP, MG #### [facility] [address] [address] [address] Linda Park Bilirubin [Mass/Vol] 0.4 mg/dL Normal 0.2-1.0 [facility] Comment on above: Performed By: #### H STROPN, CMP, BNP, MG #### [facility] [address] [address] [address] Linda Park Calcium [Mass/Vol] 9.5 mg/dL Normal 8.5-10.1 [facility] Comment on above: Performed By: #### H STROPN, CMP, BNP, MG #### [facility] [address] [address] [address] Linda Park Chloride [Moles/Vol] 104 mmol/L Normal 98-107 [facility] Comment on above: Performed By: #### H STROPN, CMP, BNP, MG #### [facility] [address] [address] [address] Linda Park CO2 [Moles/Vol] 28.6 mmol/L Normal 21.0-32.0 [facility] Comment on above: Performed By: #### H STROPN, CMP, BNP, MG #### [facility] [address] [address] [address] Linda Park Creatinine [Mass/Vol] 0.87 mg/dL Normal 0.55-1.02 [facility] Comment on above: Performed By: #### H STROPN, CMP, BNP, MG #### [facility] [address] [address] [address] Linda Park EGFR-AF RUSSIAN >60 Normal >=60 [facility] Comment on above: Performed By: #### H STROPN, CMP, BNP, MG #### [facility] [address] [address] [address] Linda Park EGFR-NON AF RUSSIAN >60 Normal >=60 [facility] Comment on above: Performed By: #### H STROPN, CMP, BNP, MG #### [facility] [address] [address] [address] Linda Park Globulin (S) [Mass/Vol] 3.3 g/dL Normal [facility] Comment on above: Performed By: #### H STROPN, CMP, BNP, MG #### [facility] [address] [address] [address] Linda Park Glucose [Mass/Vol] 95 mg/dL Normal 74-106 [facility] Comment on above: Performed By: #### H STROPN, CMP, BNP, MG #### [facility] [address] [address] [address] Linda Park Potassium [Moles/Vol] 4.4 mmol/L Normal 3.5-5.1 [facility] Comment on above: Performed By: #### H STROPN, CMP, BNP, MG #### [facility] [address] [address] [address] Linda Park Protein [Mass/Vol] 7.0 g/dL Normal 6.4-8.2 [facility] Comment on above: Performed By: #### H STROPN, CMP, BNP, MG #### [facility] [address] [address] [address] Linda Park Sodium [Moles/Vol] 140 mmol/L Normal 136-145 [facility] Comment on above: Performed By: #### H STROPN, CMP, BNP, MG #### [facility] [address] [address] [address] Linda Park Urea nitrogen [Mass/Vol] 14.0 mg/dL Normal 7.0-18.0 [facility] Comment on above: Performed By: #### H STROPN, CMP, BNP, MG #### [facility] [address] [address] [address] Linda Park Urea nitrogen/Creatinin e [Mass ratio] 16.1 mg/mg Normal [facility] Comment on above: Performed By: #### H STROPN, CMP, BNP, MG #### [facility] [address] [address] [address] Linda Park XR LSPINE MIN 4 [...] by: JAMIR SANCHEZ Date: 2022-04-30 06:55 Normal [facility] MG MAMM SCREEN 3D GONZALEZ CADon 03-05-2022 MG MAMM SCREEN 3D GONZALEZ CAD Patient: ELLI LINDSEY Exam Date: 03/05/2022 : 1945 Gender:F Ordering : DR DOCTOR ZAVALA Admission #: [id number] Family : DR. SAMINA TA M.D. Order #: [id number] CLICK HERE TO VIEW EXAM RADIOLOGY REPORT PROCEDURE: MAMMOGRAM SCREENING 3D BILATERAL CAD COMPARISON: MG MAMM GONZALEZ DIAG W CAD DIG, 11/23/2018. INDICATIONS: Screening mammography Calculator Name NCI Breast Cancer Risk Assessment Tool 5 Year Breast Cancer Risk n/a% Lifetime Breast Cancer Risk n/a% Personal Breast Cancer Yes, 2014 Personal Ovarian Cancer No Treatments lumpectomy, radiation and chemotherapy Family Cancers Grandmother-paternal with breast cancer at age 76; Father with unknown cancer at age 72. LOCATION: [facility] BREAST COMPOSITION: Scattered areas fibroglandular density. [...] Arndt MD on 03/05/2022 at 12:09 Normal [facility] Basic Metabolic Profon 09-30 (cont.) Normal [facility] Comment on above: Result Comment: Aver age GFR for 70 or more years old: 75 mL/min/1.73sq mChronic Kidney Disease: <60 mL/min/1.73sq mKidney failure: <15 mL/min/1.73sq meGFR calculated using average adult body mass. Additional eGFR calculator available at:http://[email or web address].Pumodo/multiple_crcl_2012.htmPerformed at [facility] [address] [place] [address] Performed By: #### C DP, ALCB, BMP, TSH ####[facility] [place] [address] Anion gap 13 mmol/L Normal 9-17 [facility] Comment on above: Performed By: #### C DP, ALCB, BMP, TSH ####[address] [place] [address] BUN/CRE Ratio 26 High 9-20 [facility] Comment on above: Performed By: #### C DP, ALCB, BMP, TSH ####[address] [place] [address] Calcium 9.4 mg/dL Normal 8.6-10.4 [facility] Comment on above: Performed By: #### C DP, ALCB, BMP, TSH ####[address] [place] [address] Chloride 101 mmol/L Normal 98-107 [facility] Comment on above: Performed By: #### C DP, ALCB, BMP, TSH ####[address] [facility] [place] [address] CO2 25 mmol/L Normal 20-31 [facility] Comment on above: Performed By: #### C DP, ALCB, BMP, TSH ####[address] [place] [address] Creatinine 0.66 mg/dL Normal 0.50-0.90 [facility] Comment on above: Performed By: #### C DP, ALCB, BMP, TSH ####[address] [place] [address] eGFR (non-black) mL/min/{1.73_m2} Normal >60 [facility] Comment on above: Performed By: #### C DP, ALCB, BMP, TSH ####[address] [place] [address] Glucose mass conc 92 mg/dL Normal 70-99 [facility] Comment on above: Performed By: #### C DP, ALCB, BMP, TSH ####[facility] [place] [address] Potassium molar conc 4.1 mmol/L Normal 3.7-5.3 [facility] Comment on above: Performed By: #### C DP, ALCB, BMP, TSH ####[address] [place] [address] Sodium 139 mmol/L Normal 135-144 [facility] Comment on above: Performed By: #### C DP, ALCB, BMP, TSH ####[address] [address] Urea nitrogen 17 mg/dL Normal 8-23 [facility] Comment on above: Performed By: #### C DP, ALCB, BMP, TSH ####[facility] [place] [address] Staging: NOT REPORTED Normal [facility] Comment on above: Performed By: #### C DP, ALCB, BMP, TSH ####[address] [address] CBC with Diffon 09-30-2017 Abs. Basophil 0.00 k/uL Normal 0.0-0.2 [facility] Comment on above: Result Comment: Perf ormed at [facility] [address] [place] [address] Performed By: #### C DP, ALCB, BMP, TSH ####[address] [address] Abs.Neutrophil (Seg) 4.30 k/uL Normal 1.8-7.7 [facility] Comment on above: Performed By: #### C DP, ALCB, BMP, TSH ####[place] [address] Basophils/100 WBC Auto (Bld) 1 % Normal 0-2 [facility] Comment on above: Performed By: #### C DP, ALCB, BMP, TSH ####[address] [address] Eosinophils 0.10 10*3/uL Normal 0.0-0.4 [facility] Comment on above: Performed By: #### C DP, ALCB, BMP, TSH ####[place] [address] Eosinophils/100 leukocytes 3 % Normal 1-4 [facility] Comment on above: Performed By: #### C DP, ALCB, BMP, TSH ####[place] [address] Erythrocyte distribution width Auto Ratio (RBC) 13.6 % Normal 11.5-14.5 [facility] Comment on above: Performed By: #### C DP, ALCB, BMP, TSH ####[address] [address] Erythrocytes (RBC) 3.66 10*6/uL Low 4.0-5.2 [facility] Comment on above: Performed By: #### C DP, ALCB, BMP, TSH ####[address] [id number] Hematocrit (HCT) 35.9 % Low 36-46 [facility] Comment on above: Performed By: #### C DP, ALCB, BMP, TSH ####[facility] [address] [place] [address] Hemoglobin mass conc (Bld) 12.1 g/dL Normal 12.0-16.0 [facility] Comment on above: Performed By: #### C DP, ALCB, BMP, TSH ####[address] [address] Lymphocytes 1.00 10*3/uL Normal 1.0-4.8 [facility] Comment on above: Performed By: #### C DP, ALCB, BMP, TSH ####[place] [address] Lymphocytes/100 leukocytes 17 % Low 24-44 [facility] Comment on above: Performed By: #### C DP, ALCB, BMP, TSH ####[place] [address] MCH 33.1 pg Normal 26-34 [facility] Comment on above: Performed By: #### C DP, ALCB, BMP, TSH ####[address] [address] MCHC mass conc (RBC) 33.7 g/dL Normal 31-37 [facility] Comment on above: Performed By: #### C DP, ALCB, BMP, TSH ####[place] [address] MCV 98.1 fL Normal 80-100 [facility] Comment on above: Performed By: #### C DP, ALCB, BMP, TSH ####[place] [address] Monocytes 0.30 10*3/uL Normal 0.2-0.8 [facility] Comment on above: Performed By: #### C DP, ALCB, BMP, TSH ####[address] [place] [address] Monocytes/100 leukocytes 6 % Normal 1-7 [facility] Comment on above: Performed By: #### C DP, ALCB, BMP, TSH ####[address] [address] Neutrophil (Seg) 73 % High 36-66 [facility] Comment on above: Performed By: #### C DP, ALCB, BMP, TSH ####[address] [address] Platelet mean volume (PMV) 7.9 fL Normal 6.0-12.0 [facility] Comment on above: Performed By: #### C DP, ALCB, BMP, TSH ####[address] [address] Platelets 206 10*3/uL Normal 130-400 [facility] Comment on above: Performed By: #### C DP, ALCB, BMP, TSH ####[address] [address] WBC (Leukocytes) 5.8 10*3/uL Normal 3.5-11.0 [facility] Comment on above: Performed By: #### C DP, ALCB, BMP, TSH ####[address] [address] Auto Diff Performed NOT REPORTED Normal [facility] Comment on above: Performed By: #### C DP, ALCB, BMP, TSH ####[address] [address] Erythrocyte morphology NOT REPORTED Normal [facility] Comment on above: Performed By: #### C DP, ALCB, BMP, TSH ####[address] [address] Erythrocytes (RBC) NOT REPORTED Normal [facility] Comment on above: Performed By: #### C DP, ALCB, BMP, TSH ####[address] [place] [address] Granulocytes/100 WBC (Bld) NOT REPORTED Normal 0.00-0.30 [facility] Comment on above: Performed By: #### C DP, ALCB, BMP, TSH ####[address] [place] [address] Immature granulocytes #/vol (Bld) NOT REPORTED Normal 0 [facility] Comment on above: Performed By: #### C DP, ALCB, BMP, TSH ####[address] [address] Platelets NOT REPORTED Normal [facility] Comment on above: Performed By: #### C DP, ALCB, BMP, TSH ####[address] [address] WBC Morphology NOT REPORTED Normal [facility] Comment on above: Performed By: #### C DP, ALCB, BMP, TSH ####[address] [address] Drug Scr, Abuse, Uron 2017 Amphetamine(s),Ur Negative Normal NEG [facility] Comment on above: Result Comment: (Pos itive cutoff 1000 ng/mL) Performed By: #### D AU ####[place] [address] Barbiturate(s),Ur Negative Normal NEG [facility] Comment on above: Result Comment: (Pos itive cutoff 200 ng/mL) Performed By: #### D AU ####[address] [place] [address] Base excess Negative Normal NEG [facility] Comment on above: Result Comment: (Pos itive cutoff 300 ng/mL) Performed By: #### D AU ####[address] [address] Benzodiazepine(s) Positive Abnormal NEG [facility] Comment on above: Result Comment: (Pos itive cutoff 200 ng/mL) Performed By: #### D AU ####[address] [address] Cannabinoid(s),Ur Negative Normal NEG [facility] Comment on above: Result Comment: (Pos itive cutoff 50 ng/mL) Performed By: #### D AU ####[address] [address] Interpretive Info Assay provides medic al screening only. The absence of expected drug(s) and/or Normal [facility] Comment on above: Result Comment: meta bolite(s) may indicate diluted or adulterated urine, limitations of testing or timing of collection.Testing for legal purposes should be confirmed by another method. To request confirmation of test result, please call the lab within 7 days of sample submission.Performed at [facility] [address] [place] [address] Performed By: #### D AU ####[address] [address] Opiate(s), Ur Negative Normal NEG [facility] Comment on above: Result Comment: (Pos itive cutoff 300 ng/mL) Performed By: #### D AU ####[address] [address] Oxycodone, Urine Positive Abnormal NEG [facility] Comment on above: Result Comment: (Pos itive cutoff 100 ng/mL) Performed By: #### D AU ####[address] [address] Phencyclidine, Ur Negative Normal NEG [facility] Comment on above: Result Comment: (Pos itive cutoff 25 ng/mL) Performed By: #### D AU ####[address] [address] Urine, methadone presence Negative Normal NEG [facility] Comment on above: Result Comment: (Pos itive cutoff 300 ng/mL) Performed By: #### D AU ####[address] [address] Buprenorphrine, Ur NOT REPORTED Normal NEG [facility] Comment on above: Performed By: #### D AU ####[address] [address] MDMA, Urine NOT REPORTED Normal NEG [facility] Comment on above: Performed By: #### D AU ####[address] [address] Methamphetamine, Ur NOT REPORTED Normal NEG [facility] Comment on above: Performed By: #### D AU ####[address] [address] Propoxyphene,Urine NOT REPORTED Normal NEG [facility] Comment on above: Performed By: #### D AU ####[address] [address] Urine, tricyclic antidepressants NOT REPORTED Normal NEG [facility] Comment on above: Performed By: #### D AU ####[address] [address] Ethanol Alcoholon 09-30-2017 Ethanol mg/dL Normal <10 [facility] Comment on above: Performed By: #### C DP, ALCB, BMP, TSH ####[address] [address] Ethanol percent <0.010 Normal [facility] Comment on above: Result Comment: Perf ormed at [facility] [address] [place] [address] Performed By: #### C DP, ALCB, BMP, TSH ####[address] [address] Thyroid Stim. Horm.on 2017 Thyroid stimulating hormone (TSH) 0.87 m[IU]/L Normal 0.30-5.00 [facility] Comment on above: Result Comment: Perf ormed at [facility] [address] [place] [address] Performed By: #### C DP, ALCB, BMP, TSH ####[address] [address] [facility] DIGITAL DIAGNOSTIC BILAT ERALon 04-27-2017 [facility] DIGITAL DIAGNOSTIC BILATERAL This is a [...] sent to the patient regarding the results.[employer] recommends annual mammograms for women 40years and older.Interpreted by:TIM Robinigned by:Elli Aparicio MD04/27/17 Recipients:Mark Francois MD - In [facility] - FaxFinal result Normal [facility] Vital Signs Date Time Vital Sign Value Performing Clinician Faci lity 02-07-2024 11:10-0400 Diastolic blood pressure 66 mm[Hg] CAROLINE Chen Work Phone: [facility] 02-07-2024 11:10-0400 Heart rate 65 /min CAROLINE Chen Work Phone: [facility] 02-07-2024 11:10-0400 Respiratory rate 16 /min CAROLINE Chen Work Phone: [facility] 02-07-2024 11:10-0400 SaO2% (BldA) [Mass fraction] 98 % CAROLINE Chen Work Phone: [facility] 02-07-2024 11:10-0400 Systolic blood pressure 127 mm[Hg] CAROLINE Chen Work Phone: [facility] 02-07-2024 09:19-0400 Body height 154.94 cm CAROLINE Chen Work Phone: [facility] 02-07-2024 09:190400 Body weight 81.19 kg CAROLINE Chen Work Phone: [facility] Encounters Encounter Date Encounter Type Care Provider Facility Start: 02-07-2024 End: 02-07-2024 Admission to same day surgery center CAROLINE Chen Work Phone: [facility] [place] Work Phone: Start: 02-07-2024 End: 02-07-2024 ambulatory CAROLINE Chen Work Phone: [facility] Work Phone: Start: 07-12-2023 Orders Only Shukri Jeong MD Work Phone: [facility] Start: 11-05-2022 End: 11-06-2022 ambulatory ADI SHAMMO Facility:[facility] Start: 09-24-2022 End: 09-25-2022 ambulatory DAINA MICHAELMIPARAMJITY . Facility:[facility] Start: 08-25-2022 Encounter for genera l adult medical examination without abnormal findings ADI FIGUEROA [facility] Start: 08-25-2022 Encounter for preprocedural cardiovascular examination DR BEAU WILDER . [facility] Start: 08-25-2022 End: 08-25-[address] [...] 09-30-2017 End: 09-30-2017 Emergency department patient visit MEGHANNJose TA [facility] Start: 07-20-2017 Patient encounter procedure Shukri Jeong MD Work Phone: [facility] Start: 04-27-2017 End: 04-28-2017 Ambulatory KENZIE ALMONTE [facility] Procedures Date Procedure Procedure Detail Performing [...] Td Vaccines (2 - Td or Tdap) [facility] Start: 03-02-2024 Adult BMI Screening Adult BMI Screen ing [facility] Start: 03-02-2024 Tobacco Screening Tobacco Screening [facility] Start: 02-07-2024 [facility] Start: 02-07-2024 Bone marrow sampling [facility] Start: 06-01-2023 Adult BMI Follow Up Plan Adult BMI Follow Up Plan [facility] Start: 02-12-2023 COVID-19 Vaccine () COVID-19 Vaccine () [facility] Start: 02-12-2023 Influenza vaccination Influenza Vacc ine [facility] Start: 08-18-2022 Depression Screening Depression Scre ening [facility] Start: 02-18-2022 Fall Risk Screening Fall Risk Screen ing [facility] Start: 02-18-2022 Medicare Annual Well ness Visit Medicare Annual Wellness Visit [facility] Patient Education [facility] Bone Marrow Aspiration or Biopsy Know your Meds [facility] Work Phone: Immunizations Immunization Date Immunization Notes Care Provider Fa cili 03-04-2022 influenza, injectabl e, quadrivalent, preservative free Shukri Jeong MD Work Phone: [facility] 03-04-2022 influenza virus vacc ine, unspecified formulation Shukri Jeong MD Work Phone: [facility] 04-04-2021 influenza, injectabl e, quadrivalent, contains preservative Shukri Jeong MD Work Phone: [facility] 03-13-2021 COVID-19, mRNA, LNP- S, PF, 30mcg/0.3mL Dose Shukri Jeong MD Work Phone: [facility] 08-13-2020 COVID-19, mRNA, LNP- S, PF, 30mcg/0.3mL Dose Shukri Jeong MD Work Phone: [facility] 07-22-2020 COVID-19, mRNA, LNP- S, PF, 30mcg/0.3mL Dose Shukri Jeong MD Work Phone: [facility] 02-06-2020 influenza, injectabl e, quadrivalent, preservative free Shukri Jeong MD Work Phone: [facility] 04-06-2019 zoster vaccine recombinant Shukri Jeong MD Work Phone: [facility] 03-09-2019 influenza, high dose seasonal, preservative-free Shukri Jeong MD Work Phone: [facility] 09-01-2018 zoster vaccine recombinant Shukri Jeong MD Work Phone: [facility] [employer] [facility] 02-17-2018 Seasonal trivalent influenza vaccine, adjuvanted, preservative free Shukri Jeong MD Work Phone: [facility] [employer] [facility] 08-26-2017 pneumococcal polysaccharide vaccine, 23 valent Shukri Jeong MD Work Phone: [facility] 02-10-2017 influenza virus vacc ine, unspecified formulation Shukri Jeong MD Work Phone: [facility] 02-20-2016 influenza, seasonal, injectable, preservative free Shukri Jeong MD Work Phone: [facility] [employer] [facility] 10-09-2015 pneumococcal conjuga te vaccine, 13 valent Shukri Jeong MD Work Phone: [facility] 03-08-2015 Influenza TIV (IM) Shukri soto MD Work Phone: [facility] 07-07-2013 pneumococcal polysaccharide vaccine, 23 valent Shukri Jeong MD Work Phone: [facility] [employer] [facility] 06-14-2007 pneumococcal polysaccharide vaccine, 23 valent Shukri Jeong MD Work Phone: [facility] [employer] [facility] 02-26-1999 pneumococcal polysaccharide vaccine, 23 valent Shukri Jeong MD Work Phone: [facility] Payers Date Payer Category Payer Self-pay 2024 Private Health Insurance [id number] 2022 Unknown [employer] HMO/PPO/TRUST [id number] 2022-[facility] [phone] [place] [address] [id number] 2014 Medicare [id number] 2010 Medicare MEDICARE MEDICAR E PART A & B [id number] 2010-Present [phone] [address] [place] [address] [id number] 1959 Medicare [id number] 1959 Medicare [id number] 1959 Unknown [id number] 1945 Unknown [id number] 2.16.840.1.979334.3.579.2. 593 1945 Unknown [id number] 2.16.840.1.519187.3.579.2. 593 1945 Unknown [id number] 2.16.840.1.164289.3.579.2. 593 1945 Unknown [id number] 2.16.840.1.606629.3.579.2. 593 1945 Unknown [id number] 2.16.840.1.383046.3.579.2. 593 1945 Unknown [id number] 2.16.840.1.299000.3.579.2. 593 1945 Unknown [id number] 2.16.840.1.829231.3.579.2. 593 1945 Unknown [id number] 2.16.840.1.078476.3.579.2. 593 1945 Unknown [id number] 2.16.840.1.524861.3.579.2. 593 1945 Unknown [id number] 2.16.840.1.765751.3.579.2. 593 1945 Unknown [id number] 2.16.840.1.809774.3.579.2. 593 1945 Unknown [id number] 2.16.840.1.710201.3.579.2. 593 Unknown [id number] 2.16.840.1.984462.3.579.2. 531 Social History Date Type Detail Facility Start: 06-01-2022 End: 02-07-2024 Tobacco smoking status NHIS Never smoked tobacco [facility] Start: 06-01-2022 Tobacco use and exposure Smoke less tobacco non-user [facility] Start: 03-02-2023 Alcohol intake Current drinke r of alcohol (finding) [facility] Start: 03-09-2019 End: 06-26-2020 History of Social function [facility] Start: 03-09-2019 End: 06-26-2020 Social connection and isolation panel [facility] Frequency of Communi cation with Friends and Family Three times a week [facility] Start: 03-09-2019 Education 14 [facility] Start: 1945 Sex Assigned At Not on file [facility] Start: 1945 Sex Assigned At Female [facility] Consultation note 09-24-2022 Note Date & [...] this infrequently. She is no longer on Bristol, since at least July. Her GERALDO on [...] our patients to inform us about any hrdy-mue-xrzumva medications or herbal remedies/nutritional supplements/alternative remedies. 2. [...] options with their primary care provider. [facility] Consultation note 08-20-2022 Note Date & [...] Medications include Celebrex 200 mg daily, multivitamin, Bristol 5/325 daily p.r.n., Excedrin and baclofen 10 [...] L4, L5. She is to continue her Bristol 5/325 daily p.r.n. and I highly encouraged her to use a heat rub and heat application once to twice daily. Patient agrees with this plan of care and will be brought back to the clinic thereafter. [facility] Consultation note 07-23-2022 Note Date & [...] greatly aggravate her pain. Current medications include Bristol 5/325 daily p.r.n., baclofen 10 mg q.h.s. [...] followed up in the office thereafter. [facility] Consultation note 06-23-2022 Note Date & [...] the possibility of a neurosurgical consult at [facility]. The patient's PAST MEDICAL HISTORY / SURGICAL [...] PLAN: We will start the patient on Bristol 5/325 one tablet p.o. daily. The patient [...] like to proceed. CC: DEIRDRE Bill [facility] Evaluation note Note Date & Type Note Facility Evaluation note No assessment information availa [facility] Work Phone: Instructions Note Date & Type Note Facility Instructions Not on filedocumented in this en counter [facility] Summary Purpose Family History No Family History Records Found Relationship Condition Age at Onset Recorded Date/T aleshia mother Myocardial infarction Unknown father Myocardial infarction Unknown Malignant neoplasm of prostate Unknown brother Myocardial infarction Unknown sister Leukemia Unknown brother Malignant neoplasm of prostate Unknown Advance Directives No Advanced Directives Records FoundDocuments on File Type Date Recorded Patient Clinical Marketing Manager Expl anation Living Will 10/11/2015 2:28 PM Advance Directive Response Recorded Date/ Time Advance Directives No January 26, 2024 4:21pm Chief Complaint and Reason for Visit Chief Complaint refractory anemia ev al for mds Additional Source Comments INFORMATION SOURCE (unrecogn ized section and content) DATE CREATED AUTHOR 12/02/2017 [facility] DATE CREATED AUTHOR AUTHOR'S ORGANIZ ATION 11/20/2022 [facility] DATE CREATED AUTHOR AUTHOR'S ORGANIZ ATION 02/12/2024 [facility] Care Teams (unrecognized sec tion and content) 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 Relationship Specialty Start Date End Date Adi Figueroa APRN-RESEARCH METHODOLOGIST [address] [place] [address] PCP - General Primary Care 06/01/22 Team Status: Active Member Role Status Dates Chanell Chen APRN Primary Care Provider Active Team Status: Inactive Member Role Status Dates Claribel Pickett MD Attending Provider Active St art: February 07, 2024 End: February 07, 2024 Chanell Chen APRN Primary Care Provider Active Start: February 07, 2024 End: February 07, 2024 Goals (unrecognized section and content) Goals may be documented in a n alternate section FOR RECORDS PERTAINING TO PATIENTS WHO ARE [...] BE BASED ON THE PRIMARY CLINICAL RECORDS. [facility]. provides no warranty or guarantee of the accuracy or completeness of information in this document.
== END 2024-02-28 08:40 | disposition home or self-care (01) ==
LOC: MAMMO 08:39
PROVIDERS: PCP Nurse Practitioner; Visit Provider Nurse Practitioner
DX: Z12.31 Encounter for screening mammogram for malignant neoplasm of breast (principal); Z80.3 Family history of malignant neoplasm of breast; Z80.9 Family history of malignant neoplasm, unspecified
CPT/HCPCS: 77063; 77067

== ENCOUNTER 2024-02-29 07:14 | Outpatient (RCR) | payer MEDICARE, SELFPAY | END 2024-03-13 23:59 | disposition home or self-care (01) | LOC: HEMC 07:14 | PROVIDERS: PCP Nurse Practitioner; Visit Provider Internal Medicine Hematology & Oncology | DX: C50.411 Malignant neoplasm of upper-outer quadrant of right female breast (principal); Z17.0 Estrogen receptor positive status [ER+]; D64.9 Anemia, unspecified; D50.9 Iron deficiency anemia, unspecified; K90.9 Intestinal malabsorption, unspecified | CPT/HCPCS: G0463 ==

== ENCOUNTER 2024-06-23 08:18 | Outpatient (OUT) | payer MEDICARE, SELFPAY ==
--- OUTSIDE RECORDS SUMMARY | 2024-06-23 08:26 | XMS_ITS | CCD ---
Author Organization [facility] Care Team Providers Care Rv Technician Name Role Phone KENZIE ALMONTE Unavailable Unavailable [...] Consulting Unavailable MISC, DR CABRERA Attending Unavailable [place], DR JOSE RAFAEL Mendes Consulting Unavailable MISC, DR DOCTOR Admitting Unavailable MISSulma, DR CABRERA Consulting Unavailable WILDER ., DR BEAU Galvan Attending Unavailable ITNA ., DR BEAU Galvan Admitting Unavailable SHAMMO, ADI Primary Care Unavailable WILDER ., DR BEAU Galvan Consulting Unavailable WILDER ., DR BEAU Galvan Attending Unavailable WILDER ., DR BEAU Galvan Admitting Unavailable SHAMMO, ADI Primary Care Unavailable WILDER ., DR EBAU Galvan Consulting Unavailable WILDER ., DR BEAU Galvan Admitting Unavailable WILDER ., DR BEAU Galvan Attending Unavailable WILDER ., DR BEAU Galvan Consulting Unavailable SHAMMO, ADI Primary Care Unavailable NKECHI ALLEN Consulting Unavailable Shammo CONTRACT DRIVER-[facility], [place] Primary Care Provider [phone] MD Claribel Pickett Attending Provider CAROLINE Medina [place] Primary Care Provider Claribel Pickett Attending Unavailable Claribel Pickett Admitting Unavailable [facility] Primary Care Unavailable Unavailable Primary Care Provider Unavailmadyson Medina CONTRACT DRIVER-[employer]NA[employer]IREMENT, [place] Primary Care Provider [phone] BOONE JHA Referring Unavailable SHAMWI, ADI Primary Care Unavailable KEN JONES Attending Unavailable [facility], ADI Referring Unavailable [facility] Primary Care Unavailable Allergies Allergy Classification Reported Allergen(s) Allergy Type Date of Onset Reaction(s) Facility (5 sources) Hay Fever And Allergy Relief; Translations: [HAY FEVER AND ALLERGY RELIEF] Propensity to adverse reactions to drug 06-20-2014 [facility] (5 sources) Other; Translations: [OTHER] Propensity to adverse reactions 12-24-2015 [facility] Medications Current Medications Medication Drug Class(es) Dates Sig (Normalized) Sig (Original) ALPRAZolam 0.25 mg oral tablet (5 sources) Benzodiazepine Start: 11-14-2020 take 1 tablet by mouth once daily ALPRAZolam (XANAX) 0.25 mg tablet Take 1 tablet (0.25 mg total) by mouth nightly. 11/14/2020 Active ARIPiprazole 2 mg oral tablet (5 sources) Atypical Antipsychotic Start: 02-07-2024 take 1 tablet by mouth once daily Aripiprazole (Abilify) 2 mg tablet Active 2 MG PO Daily February 07, 2024 12:00am citalopram 20 mg oral tablet (1 source) Serotonin Reuptake Inhibitor Start: 02-07-2024 take 1 tablet by mouth once daily Citalopram (Celexa) 20 mg tablet Active 20 MG PO Daily February 07, 2024 12:00am hydroCHLOROthiazide 12.5 mg / lisinopril 10 mg oral tablet (8 sources) Thiazide Diuretic, Angiotensin Converting Enzyme Inhibitor Start: 05-08-2024 take 10-12.5 mg by mouth once at bedtime lisinopril-hydro CHLOROthiazide (PRINZIDE,ZESTOR ETIC) 10-12.5 mg per tablet Indications: Coronary artery disease involving [place] coronary artery of [place] heart without angina pectoris , Pulmonary hypertension ([facility]) , Benign essential hypertension , Dyslipidemia , Dyspnea on exertion Take 1 tablet by mouth in the morning and at bedtime. 180 tablet 3 05/08/2024 Active Start: 02-07-2024 take 1 tablet by joyce th once daily Lisinopril-Hydrochlorothiazide Active 1 TAB PO Daily February 07, 2024 12:00am Start: 03-05-2023 End: 05-08-2024 take 0.5 tablet by mouth once in the morning lisinopril-hydroCHLOROthiazide (PRINZIDE,ZESTORETIC) 20-25 mg per tablet Take 0.5 tablets by mouth in the morning and 0.5 tablets before bedtime. 90 tablet 03/31/2024 05/08/2024 Discontinued Start: 12-11-2022 take 10-12.5 mg by mouth once at bedtime lisinopril-hydroCHLOROthiazide (PRINZIDE,ZESTORETIC) 10-12.5 mg per tablet Take 1 tablet by mouth in the morning and at bedtime. 180 tablet 3 12/11/2022 Active lansoprazole 15 mg delayed release oral capsule (5 sources) Proton Pump Inhibitor Start: 02-07-2024 take 15 mg by mouth once daily Lansoprazole Active 15 MG PO Daily February 07, 2024 12:00am take 1 tablet by mouth in the mo rning lansoprazole (PREVACID SOLUTAB) 15 mg disintegrating tablet Indications: heartburn Take 1 tablet (15 mg total) by mouth in the morning. Indications: heartburn. Active levocetirizine dihydrochloride 5 mg oral tablet (5 sources) Histamine-1 Receptor Antagonist Start: 02-07-2024 take 5 mg by mouth once daily at bedtime Levocetirizine Active 5 MG PO Daily at bedtime February 07, 2024 12:00am sksuuoyt-lnkm-XG-calc ium &mins (THERAGRAN-M) 9 mg iron-400 mcg tablet (4 sources) qtzcdwfz-xwxc-UB -ca lcium &mins (THERAGRAN-M) 9 mg iron-400 mcg tablet Indications: mineral deficiency , vitamin deficiency Take 1 tablet by mouth in the morning. Indications: lack in minerals, vitamin deficiency. Active gpynlsnn-xvza-YE -calcium &mins (THERAGRAN-M) 9 mg iron-400 mcg tablet Indications: mineral deficiency , vitamin deficiency Take 1 tablet by mouth in the morning. Indications: lack in minerals, vitamin deficiency. 0 Active Multivitamin (Daily Multi-Vitamin) tablet (1 source) Start: 02-07-2024 take 1 tablet by mouth once daily Multivitamin (Daily Multi-Vitamin) tablet Active 1 TAB PO Daily February 07, 2024 12:00am pravastatin sodium 20 mg oral tablet (5 sources) HMG-CoA Reductase Inhibitor Start: 09-17-2021 pravastatin (PRAVACHOL) 20 mg tablet Indications: Dyslipidemia TAKE 1 TABLET DAILY 90 tablet 3 09/17/2021 Active spironolactone 25 mg oral tablet (1 source) Aldosterone Antagonist Start: 05-08-2024 take 1 tablet by mouth in the morning spironolactone (ALDACTONE) 25 mg tablet Indications: Coronary artery disease involving [place] coronary artery of [place] heart without angina pectoris , Pulmonary hypertension (CMS-HCC) , Benign essential hypertension , Dyslipidemia , Dyspnea on exertion Take 1 tablet (25 mg total) by mouth in the morning. 90 tablet 3 05/08/2024 Active traMADol hydrochloride 50 mg oral tablet (4 sources) Opioid Agonist take 1 tablet by mouth every six hours as needed for pain traMADoL (ULTRAM) 50 mg tablet Take 1 tablet (50 mg total) by mouth every 6 (six) hours as needed for pain. Active vitamin e 90 mg oral capsule (4 sources) take 2 capsules by mouth in the morning vitamin E 200 units capsule Indications: vitamin E deficiency Take 2 capsules (400 Units total) by mouth in the morning. Indications: deficiency of vitamin E. Active Problems Active Problems Problem Classification Problem Date Documented Da te Episodic/Chronic Cancer of breast (4 sources) Malignant neoplasm of female breast; Translations: [Malignant neoplasm of unspecified site of unspecified female breast] Onset: 01-21-2016 01-21-2016 Chronic Cataract (4 sources) Artificial lens present; Translations: [Presence of intraocular lens] Onset: 05-26-2016 05-26-2016 Chronic Conditions associated with dizziness or vertigo (1 source) Dizziness and giddiness; Translations: [DIZZINESS AND GIDDINESS] Onset: 11-06-2022 Episodic Coronary atherosclerosis and other heart disease (3 sources) Coronary arteriosclerosis; Translations: [Atherosclerotic heart disease of [place] coronary artery without angina pectoris] Onset: 05-08-2024 03-30-2024 Chronic Disorders of lipid metabolism (6 sources) Dyslipidemia; Translations: [Hyperlipidemia, unspecified] Onset: 12-24-2015 12-24-2015 Chronic Esophageal disorders (4 sources) Gastro-esophageal reflux disease with esophagitis; Translations: [Gastroesophageal reflux disease with esophagitis] Onset: 12-05-2016 12-05-2016 Chronic Essential hypertension (7 sources) Essential (primary) hypertension; Translations: [Benign essential hypertension] Onset: 12-24-2015 12-24-2015 Chronic Headache; including migraine (4 sources) Tension-type headache; Translations: [Tension-type headache, unspecified, not intractable] Onset: 02-27-2018 02-27-2018 Chronic Malaise and fatigue (1 source) Chronic fatigue, unspecified; Translations: [CHRONIC FATIGUE UNSPECIFIED] Onset: 11-06-2022 Chronic Mood disorders (4 sources) Depressive disorder; Translations: [Depressive disorder] Onset: 10-01-2017 10-01-2017 Chronic Other acquired deformities (1 source) Other forms of scoliosis, lumbar region; Translations: [OTHER FORMS SCOLIOSIS LUMBAR REGION] Onset: 06-25-2022 Chronic Other acquired deformities (4 sources) Scoliosis of lumbar spine; Translations: [Scoliosis, unspecified] Onset: 06-01-2022 06-01-2022 Chronic Other connective tissue disease (1 source) Other muscle spasm; Translations: [OTHER MUSCLE SPASM] Onset: 09-30-2022 Episodic Other lower respiratory disease (5 sources) Other forms of dyspnea; Translations: [OTHER FORMS OF DYSPNEA] Onset: 11-05-2022 Episodic Other lower respiratory disease (1 source) Orthopnea; Translations: [ORTHOPNEA] Onset: 11-06-2022 Episodic Other lower respiratory disease (1 source) Dyspnea on exertion; Translations: [Other forms of dyspnea] 05-08-2024 Episodic Other nervous system disorders (1 source) Other chronic pain; Translations: [OTHER CHRONIC PAIN] Onset: 09-30-2022 Chronic Other nervous system disorders (4 sources) Thoracic outlet syndrome; Translations: [Brachial plexus disorders] Onset: 05-17-2017 05-17-2017 Chronic Other nutritional; endocrine; and metabolic disorders (4 sources) Severe obesity; Translations: [Morbid (severe) obesity due to excess calories] Onset: 09-04-2016 08-21-2019 Chronic Pulmonary heart disease (6 sources) Pulmonary hypertension; Translations: [Pulmonary hypertension, unspecified] Onset: 12-11-2022 12-11-2022 Chronic Spondylosis; intervertebral disc disorders; other back problems (10 sources) Spondylosis without myelopathy or radiculopathy, lumbar [...] 04-27-2017 Episodic Disorders of teeth and jaw (4 sources) Temporomandibular joint disorder; Translations: [Unspecified temporomandibular joint disorder, unspecified side] Onset: 01-21-2016 01-21-2016 Episodic Menopausal disorders (4 sources) Menopausal syndrome; Translations: [Menopausal and female climacteric states] Onset: 02-06-2016 Resolved: 02-28-2020 02-28-2020 Chronic Mood disorders (4 sources) Mood disorders Onset: 08-18-2021 08-18-2021 Other connective tissue disease (1 source) Sarcopenia; Translations: [SARCOPENIA] Onset: 06-25-2022 Episodic Other eye disorders (4 sources) Dry eyes; Translations: [Dry eye syndrome of bilateral lacrimal glands] Onset: 05-26-2016 Resolved: 02-28-2020 02-28-2020 Episodic Other non-traumatic joint disorders (5 sources) Pain in right knee; Translations: [Pain in joint, lower leg] Onset: 06-09-2016 06-09-2016 Episodic Other screening for suspected conditions (not mental disorders or infectious disease) (10 sources) Encounter for screening for cardiovascular disorders; [...] Spondylosis; intervertebral disc disorders; other back problems (12 sources) Sciatica, right side; Translations: [Chronic low back pain] Onset: 12-24-2015 Episodic Sprains and strains (4 sources) Sprain of shoulder rotator cuff; Translations: [Sprain of right rotator cuff capsule, initial encounter] Onset: 03-10-2019 03-10-2019 Episodic Unclassified (1 source) LOW BACK PAIN, UNSPECIFIED; Translations: [LOW BACK PAIN, UNSPECIFIED] Onset: 09-24-2022 Unclassified (4 sources) Onset: 06-01-2022 06-01-2022 Results Test Name Value Interpretation Reference Range Facility POCT EKGOrdered By: Marsha Layne on 05-08-2024 [facility] Activated partial thrombopla stin time (aPTT) in platelet poor plasma by coagulation aOrdered By: Claribel Pickett on 02-07-2024 aPTT Coag (PPP) [Time] 36.0 s 25.1-36.5 [facility] Comment on above: A hematocrit value g reater than 55% may lead to inaccurate results in coagulation testing. Patients having hematocrit values >55% require a special collection tube for coagulation studies. Please contact the laboratory at [phone] for redraw instructions. Automated basophil %Ordered By: Claribel Pickett on 02-07-2024 Basophils/100 WBC (Bld) 0.6 % Normal . [facility] Comment on above: Order Comment: STAT FOR CT BX Performed By: #### C BC, PP #### [facility] [address] [place] [address] Automated basophil countOrde red By: Claribel Nieves on 02-07-2024 Basophils (Bld) [#/Vol] 0.0 10*3/uL Normal 0.0-0.2 [facility] Comment on above: Order Comment: STAT FOR CT BX Result Comment: PERF ORMED BY: [place] [address] PATHOLOGIST CLINICAL COURIER KATRINA PATTERSON M.D. Performed By: #### C BC, PP #### [address] Automated blood monocyte cou ntOrdered By: Claribel Nieves on 02-07-2024 Monocytes (Bld) [#/Vol] 0.6 10*3/uL Normal 0.0-0.8 [facility] Comment on above: Order Comment: STAT FOR CT BX Performed By: #### C BC, PP #### [address] Automated eosinophil %Ordere d By: Claribel Nieves on 02-07-2024 Eosinophils/100 WBC (Bld) 2.5 % Normal . [facility] Comment on above: Order Comment: STAT FOR CT BX Performed By: #### C BC, PP #### [facility] [address] [place] [address] Automated eosinophil countOr dered By: Claribel Nieves on 02-07-2024 Eosinophils (Bld) [#/Vol] 0.2 10*3/uL Normal 0.0-0.45 [facility] Comment on above: Order Comment: STAT FOR CT BX Performed By: #### C BC, PP #### [address] Automated monocyte %Ordered By: Claribel Nieves on 02-07-2024 Monocytes/100 WBC (Bld) 7.6 % Normal . [facility] Comment on above: Order Comment: STAT FOR CT BX Performed By: #### C BC, PP #### [facility] [address] [place] [address] Automated neutrophil %Ordere d By: Claribel Pickett on 02-07-2024 Neutrophils/100 WBC (Bld) 72.6 % Normal . [facility] Comment on above: Order Comment: STAT FOR CT BX Performed By: #### C BC, PP #### [facility] [address] [place] [address] CT guided bone marrow bx/asp iron 02-07-2024 CT guided bone marrow bx/aspir [facility] [place] [address] [place] [address] CT Scan Report Signed Patient: Elli Lindsey MR#: [id number] : 1945 Acct:[id number] Age/Sex: 78 / F ADM Date: 02/07/24 Loc: CT Room: Type: [facility] Attending Dr: Claribel Pickett MD Copies [...] local anesthesia. Utilizing CT guidance, an 11-gauge OnCCapical biopsy needle was advanced into the right [...] Adams Jr., D.O.02/07/2024 2:08 PM Dictation Location: [place] [address] Transcribed By: [facility] 02/07/24 1408 Dictated By: Sebastian Adams Jr, DO 02/07/24 1407 Signed By: 02/07/24 1408 Normal [facility] Coagulation Profileon 2023 aPTT Coag (Bld) [Time] 36.0 s Normal 25.1-36.5 [facility] Comment on above: Order Comment: STAT FOR CT BX Result Comment: A he matocrit value greater than 55% may lead to inaccurate results in coagulation testing. Patients having hematocrit values >55% require a special collection tube for coagulation studies. Please contact the laboratory at [phone] for redraw instructions. PERFORMED BY: [place] [address] PATHOLOGIST CLINICAL COURIER KATRINA PATTERSON M.D. Performed By: #### C BC, PP #### [address] Complete Blood Count Auto Di ffon 02-07-2024 Mean Corpuscular HGB Conc 34.1 g/dL Normal 32.0-35.0 [facility] Comment on above: Order Comment: STAT FOR CT BX Performed By: #### C BC, PP #### [facility] [address] [place] [address] NRBC% 0.0 /100{WBC} Normal 0-0.5 [facility] Comment on above: Order Comment: STAT FOR CT BX Performed By: #### C BC, PP #### [place] [address] [place] Erythrocyte distribution wid th [Ratio] by Automated countOrdered By: Clarible Pickett on 02-07-2024 Erythrocyte distribution width (RBC) [Ratio] 13.8 % Normal 11.9-15.3 [facility] Comment on above: Order Comment: STAT FOR CT BX Performed By: #### C BC, PP #### [address] Erythrocytes [#/volume] in B lood by Automated countOrdered By: Claribel Pickett on 02-07-2024 RBC (Bld) [#/Vol] 3.45 10*6/uL Low 3.60-5.00 [facility] Comment on above: Order Comment: STAT FOR CT BX Performed By: #### C BC, PP #### [address] Hematocrit [Volume Fraction] of Blood by Automated countOrdered By: Claribel Pickett on 02-07-2024 Hematocrit (Bld) [Volume fraction] 33.8 % Low 34.0-46.4 [facility] Comment on above: Order Comment: STAT FOR CT BX Performed By: #### C BC, PP #### [address] Hemoglobin [Mass/volume] in BloodOrdered By: Claribel Pickett on 02-07-2024 Hemoglobin (Bld) [Mass/Vol] 11.5 g/dL Low 11.8-15.4 [facility] Comment on above: Order Comment: STAT FOR CT BX Performed By: #### C BC, PP #### [address] INR in Platelet poor plasma by Coagulation assayOrdered By: Claribel Pickett on 02-07-2024 INR Coag (PPP) [Relative time] 1.0 {INR} Normal [facility] Comment on above: INR Therapeutic [...] Performed By: #### C BC, PP #### [address] Leukocytes [#/volume] correc denita for nucleated erythrocytes in Blood by Automated counOrdered By: Claribel Nieves on 02-07-2024 WBC corrected for nucl RBC Auto (Bld) [#/Vol] 8.0 10*3/uL 3.8-11.6 [facility] Leukocytes [#/volume] in Blo od by Automated countOrdered By: Claribel Nieves on 02-07-2024 WBC (Bld) [#/Vol] 8.0 10*3/uL Normal 3.8-11.6 [facility] Comment on above: Order Comment: STAT FOR CT BX Performed By: #### C BC, PP #### [address] Lymphocytes [#/volume] in Bl ood by Automated countOrdered By: Claribel Pickett on 02-07-2024 Lymphocytes (Bld) [#/Vol] 1.3 10*3/uL Normal 1.00-4.8 [facility] Comment on above: Order Comment: STAT FOR CT BX Performed By: #### C BC, PP #### [place] [address] [place] Lymphocytes/100 leukocytes i n Blood by Automated countOrdered By: Claribel Nieves on 02-07-2024 Lymphocytes/100 WBC (Bld) 16.7 % Normal . [facility] Comment on above: Order Comment: STAT FOR CT BX Performed By: #### C BC, PP #### [place] [address] [place] MCH [Entitic mass] by Automa denita countOrdered By: Claribel Nieves on 02-07-2024 MCH (RBC) [Entitic mass] 33.5 pg Normal 24.7-34.3 [facility] Comment on above: Order Comment: STAT FOR CT BX Performed By: #### C BC, PP #### [address] MCHC Auto (RBC) [Mass/Vol]Or dered By: Claribelvannessa Pickett on 02-07-2024 MCHC (RBC) [Mass/Vol] 34.1 g/dL 32.0-35.0 [facility] MCV [Entitic volume] by Auto mated countOrdered By: Claribelvannessa Pickett on 02-07-2024 MCV (RBC) [Entitic vol] 98.1 fL Normal 80-100 [facility] Comment on above: Order Comment: STAT FOR CT BX Performed By: #### C BC, PP #### [address] Neutrophils [#/volume] in Bl ood by Automated countOrdered By: Claribel Pickett on 02-07-2024 Neutrophils (Bld) [#/Vol] 5.8 10*3/uL Normal 1.8-7.7 [facility] Comment on above: Order Comment: STAT FOR CT BX Performed By: #### C BC, PP #### [address] Nucleated erythrocytes [Pres ence] in Blood by Automated countOrdered By: Claribel Pickett on 02-07-2024 Nucleated RBC Auto Ql (Bld) 0.0 /100{WBC} 0-0.5 [facility] Pathology Request for Lab Co rpon 02-07-2024 Pathology Request for Lab Samir Normal [facility] Comment on above: Order Comment: BM BI OPSY Result Comment: See report. Scanned copy available in EMR. PERFORMED BY: [place] [address] PATHOLOGIST CLINICAL COURIER KATRINA PATTERSON M.D. Performed By: #### P ATH TO [facility] #### [address] Platelet mean volume [Entiti c volume] in Blood by Automated countOrdered By: Claribel Pickett on 02-07-2024 Platelet mean volume (Bld) [Entitic vol] 7.2 fL Normal 6.3-10.7 [facility] Comment on above: Order Comment: STAT FOR CT BX Performed By: #### C BC, PP #### [facility] [address] Platelets [#/volume] in Bloo d by Automated countOrdered By: Claribel Pickett on 02-07-2024 Platelets (Bld) [#/Vol] 271 10*3/uL Normal 150-450 [facility] Comment on above: Order Comment: STAT FOR CT BX Performed By: #### C BC, PP #### [facility] [address] Prothrombin time (PT)Ordered By: Claribel Pickett on 02-07-2024 PT Coag (PPP) [Time] 11.8 s Normal 9.0-12.9 [facility] Comment on above: A hematocrit value g reater than 55% may lead to inaccurate results in coagulation testing. Patients having hematocrit values >55% require a special collection tube for coagulation studies. Please contact the laboratory at [phone] for redraw instructions. Order Comment: STAT FOR CT BX Result Comment: A he matocrit value greater than 55% may lead to inaccurate results in coagulation testing. Patients having hematocrit values >55% require a special collection tube for coagulation studies. Please contact the laboratory at [phone] for redraw instructions. Performed By: #### C BC, PP #### [place] [id number] [facility] XR KNEE RT 3 VWSon XR KNEE RT 3 VWS XR KNEE RT 3 VWS CLINICAL INFORMATION: Right medial knee pain TECHNIQUE: XR KNEE RT 3 VWS 3 views the right knee were obtained. Moderate to severe osteoarthritic changes noted with joint space narrowing most significant medially. Chondrocalcinosis appreciated laterally. There is no joint effusion or obvious fracture. IMPRESSION: Medial predominant osteoarthritis. Finalized by Karson Garcia MD on 01/26/2024 10:55 PM Normal [facility] US CAROTID ART BILon 023 US CAROTID [...] by: JAMIR SANCHEZ Date: 2022-11-06 05:46 Normal [facility] BNPon 11-05-2022 Natriuretic peptide B (Bld) [Mass/Vol] 55.0 pg/mL Normal <=1,800.0 [facility] Comment on above: Performed By: #### H STROPN, CMP, BNP, MG #### [facility] [address] [place] [address] [address] Linda Park ECHOCARDIO M/2D COMPLETEon 0 11-05-2022 ECHOCARDIO M/2D COMPLETE Patient: ELLI LINDSEY Exam Date: 11/05/2022 : 1945 Gender:F Ordering : ADI FIGUEROA Admission #: [id number] Family : Order #: [id number] CLICK HERE TO VIEW EXAM ECHOCARDIOGRAM REPORT [...] M.D. on 11/08/2022 at 15:17 Normal [facility] MAGNESIUMon 11-05-2022 Magnesium [Mass/Vol] 2.0 mg/dL Normal 1.8-2.4 [facility] Comment on above: Performed By: #### H STROPN, CMP, BNP, MG #### [facility] [address] [place] [address] Dr. Linda Park PROF 14(COMP METB)on 023 Albumin [Mass/Vol] 3.7 g/dL Normal 3.4-5.0 [facility] Comment on above: Performed By: #### H STROPN, CMP, BNP, MG #### [facility] [address] [place] [address] [address] Linda Park Albumin/Globulin [Mass ratio] 1.1 {ratio} Normal [facility] Comment on above: Performed By: #### H STROPN, CMP, BNP, MG #### [facility] [address] [place] [address] [address] Linda Park ALP [Catalytic activity/Vol] 84 U/L Normal 46-116 [facility] Comment on above: Performed By: #### H STROPN, CMP, BNP, MG #### [facility] [address] [place] [address] [address] Linda Park ALT [Catalytic activity/Vol] 17 U/L Normal 14-59 [facility] Comment on above: Performed By: #### H STROPN, CMP, BNP, MG #### [facility] [address] [place] [address] Dr. Linda Park Anion gap [Moles/Vol] 10.8 mmol/L Normal [facility] Comment on above: Performed By: #### H STROPN, CMP, BNP, MG #### [facility] [address] [place] [address] Dr. Linda Park AST [Catalytic activity/Vol] 15 U/L Normal 15-37 [facility] Comment on above: Performed By: #### H STROPN, CMP, BNP, MG #### [facility] [facility] [address] [address] [address] Linda Park Bilirubin [Mass/Vol] 0.2 mg/dL Normal 0.2-1.0 [facility] Comment on above: Performed By: #### H STROPN, CMP, BNP, MG #### [facility] [address] [address] [address] Linda Park Calcium [Mass/Vol] 9.1 mg/dL Normal 8.5-10.1 [facility] Comment on above: Performed By: #### H STROPN, CMP, BNP, MG #### [facility] [address] [address] [address] Linda Park Chloride [Moles/Vol] 104 mmol/L Normal 98-107 [facility] Comment on above: Performed By: #### H STROPN, CMP, BNP, MG #### [facility] [address] [address] [address] Linda Park CO2 [Moles/Vol] 30.8 mmol/L Normal 21.0-32.0 [facility] Comment on above: Performed By: #### H STROPN, CMP, BNP, MG #### [facility] [address] [place] [address] Dr. Linda Park Creatinine [Mass/Vol] 0.94 mg/dL Normal 0.55-1.02 [facility] Comment on above: Performed By: #### H STROPN, CMP, BNP, MG #### [facility] [address] [place] [address] Dr. Linda Park EGFR-AF SUDANESE >60 Normal >=60 [facility] Comment on above: Performed By: #### H STROPN, CMP, BNP, MG #### [facility] [address] [place] [address] Dr. Linda Park EGFR-NON AF SUDANESE 58 mL/min/1.73m2 Critically low >=60 [facility] Comment on above: Performed By: #### H STROPN, CMP, BNP, MG #### [facility] [address] [place] [address] Dr. Linda Park Globulin (S) [Mass/Vol] 3.5 g/dL Normal [facility] Comment on above: Performed By: #### H STROPN, CMP, BNP, MG #### [facility] [address] [place] [address] Dr. Linda Park Glucose [Mass/Vol] 78 mg/dL Normal 74-106 [facility] Comment on above: Performed By: #### H STROPN, CMP, BNP, MG #### [facility] [address] [place] [address] Dr. Linda Park Potassium [Moles/Vol] 4.6 mmol/L Normal 3.5-5.1 [facility] Comment on above: Performed By: #### H STROPN, CMP, BNP, MG #### [facility] [address] [address] [address] Linda Park Protein [Mass/Vol] 7.2 g/dL Normal 6.4-8.2 [facility] Comment on above: Performed By: #### H STROPN, CMP, BNP, MG #### [facility] [address] [address] [address] Linda Park Sodium [Moles/Vol] 141 mmol/L Normal 136-145 [facility] Comment on above: Performed By: #### H STROPN, CMP, BNP, MG #### [facility] [address] [address] [address] Linda Park Urea nitrogen [Mass/Vol] 17.0 mg/dL Normal 7.0-18.0 [facility] Comment on above: Performed By: #### H STROPN, CMP, BNP, MG #### [facility] [address] [place] [address] Dr. Linda Park Urea nitrogen/Creatinin e [Mass ratio] 18.1 mg/mg Normal [facility] Comment on above: Performed By: #### H STROPN, CMP, BNP, MG #### [facility] [address] [place] [address] Dr. Linda Park TROPONIN, HIGH SENSITIVITYon 11-05-2022 HSTROP 9.2 pg/mL Normal 4.0-51.3 [facility] Comment on above: Result Comment: CUT- OFF POINTS HAVE BEEN ESTABLISHED BASED ON THE FOURTH UNIVERSAL DEFINITIONS OF MYOCARDIAL INFARCTION. THE UPPER REFERENCE LIMIT (URL) OF TROPONIN, DEFINED THE 99TH PERCENTILE OF cTnI DISTRIBUTION IN A REFERENCE POPULATION, HAS BEEN CONFIRMED THE DECISION THRESHOLD FOR ND DIAGNOSIS. Performed By: #### H STROPN, CMP, BNP, MG #### [facility] [address] [place] [address] Dr. Linda Park XR CHEST 2 Von [...] TERRENCE ALBERTO Date: 2022-11-05 18:32 Normal [facility] HEMOGRAM AND PLATELon 2022 Hematocrit (Bld) [Volume fraction] 27.8 % Critically low 36.0-48.0 [facility] Comment on above: Performed By: #### H STROPN, CMP, BNP, MG #### [facility] [address] [place] [address] Dr. Linda Park Hemoglobin (Bld) [Mass/Vol] 8.8 g/dL Critically low 12.0-16.0 [facility] Comment on above: Performed By: #### H STROPN, CMP, BNP, MG #### [facility] [address] [place] [address] Dr. Linda Park MCH (RBC) [Entitic mass] 29.0 pg Normal 26.7-34.0 [facility] Comment on above: Performed By: #### H STROPN, CMP, BNP, MG #### [facility] [address] [place] [address] Dr. Linda Park MCHC (RBC) [Mass/Vol] 31.7 g/dL Normal 29.9-35.2 [facility] Comment on above: Performed By: #### H STROPN, CMP, BNP, MG #### [facility] [address] [place] [address] Dr. Linda Park MCV (RBC) [Entitic vol] 91.7 fL Normal 81.0-99.0 [facility] Comment on above: Performed By: #### H STROPN, CMP, BNP, MG #### [facility] [address] [address] [address] Linda Park PLT 217 103/ul Normal 150-450 [facility] Comment on above: Performed By: #### H STROPN, CMP, BNP, MG #### [facility] [address] [address] [address] Linda Park RBC 3.03 106/ul Critically low 4.20-5.40 [facility] Comment on above: Performed By: #### H STROPN, CMP, BNP, MG #### [facility] [address] [place] [address] Dr. Linda Park WBC 6.4 103/ul Normal 4.0-11.0 [facility] Comment on above: Performed By: #### H STROPN, CMP, BNP, MG #### [facility] [address] [place] [address] Dr. Linda Park LIPID PROFILEon 08-24-2022 CHOL-HDL RATIO NORM SEE BELOW Normal [facility] Comment on above: Result Comment: 3.3 - 4.4 LOW RISK 4.4 - 7.1 AVERAGE RISK 7.1 - 11.0 MODERATE RISK >11.0 HIGH RISK Performed By: #### H STROPN, CMP, BNP, MG #### [facility] [address] [place] [address] Dr. Linda Park Cholesterol [Mass/Vol] 166 mg/dL Normal <=200 [facility] Comment on above: Performed By: #### H STROPN, CMP, BNP, MG #### [facility] [address] [address] [address] Linda Park Cholesterol in HDL [Mass/Vol] 54 mg/dL Normal 40-60 [facility] Comment on above: Performed By: #### H STROPN, CMP, BNP, MG #### [facility] [address] [address] [address] Linda Park Cholesterol in LDL [Mass/Vol] 70.8 mg/dL Normal [facility] Comment on above: Performed By: #### H STROPN, CMP, BNP, MG #### [facility] [address] [place] [address] Dr. Linda Park Cholesterol.total/ Cholesterol in HDL [Mass ratio] 3.1 {ratio} Normal [facility] Comment on above: Performed By: #### H STROPN, CMP, BNP, MG #### [facility] [address] [address] [address] Linda Park HDL NORMAL > or = 60 mg/dl - LO W CARDIOVASCULAR RISK <40 mg/dl - HIGH CARDIOVASCULAR RISK Normal [facility] Comment on above: Performed By: #### H STROPN, CMP, BNP, MG #### [facility] [address] [address] [address] Linda Park LDL CALC NORMAL SEE BELOW Normal [facility] Comment on above: Result Comment: <100 mg/dl OPTIMAL 100 - 129 mg/dl NEAR OR ABOVE OPTIMAL 130 - 159 mg/dl BORDERLINE HIGH 160 - 189 mg/dl HIGH >190 mg/dl VERY HIGH Performed By: #### H STROPN, CMP, BNP, MG #### [facility] [address] [address] [address] Linda Park Triglyceride [Mass/Vol] 206 mg/dL Critically high <=150 [facility] Comment on above: Performed By: #### H STROPN, CMP, BNP, MG #### [facility] [address] [address] [address] Linda Park VLDL CALC 41.2 mg/dL Normal [facility] Comment on above: Performed By: #### H STROPN, CMP, BNP, MG #### [facility] [address] [address] [address] Linda Park PROF 14(COMP METB)on 023 Albumin [Mass/Vol] 3.7 g/dL Normal 3.4-5.0 [facility] Comment on above: Performed By: #### H STROPN, CMP, BNP, MG #### [facility] [address] [address] [address] Linda Park Albumin/Globulin [Mass ratio] 1.1 {ratio} Normal [facility] Comment on above: Performed By: #### H STROPN, CMP, BNP, MG #### [facility] [address] [address] [address] Linda Park ALP [Catalytic activity/Vol] 84 U/L Normal 46-116 [facility] Comment on above: Performed By: #### H STROPN, CMP, BNP, MG #### [facility] [address] [address] [address] Linda Park ALT [Catalytic activity/Vol] 17 U/L Normal 14-59 [facility] Comment on above: Performed By: #### H STROPN, CMP, BNP, MG #### [facility] [address] [address] [address] Linda Park Anion gap [Moles/Vol] 11.8 mmol/L Normal [facility] Comment on above: Performed By: #### H STROPN, CMP, BNP, MG #### [facility] [address] [address] [address] Linda Park AST [Catalytic activity/Vol] 19 U/L Normal 15-37 [facility] Comment on above: Performed By: #### H STROPN, CMP, BNP, MG #### [facility] [address] [address] [address] Linda Park Bilirubin [Mass/Vol] 0.4 mg/dL Normal 0.2-1.0 [facility] Comment on above: Performed By: #### H STROPN, CMP, BNP, MG #### [facility] [address] [address] [address] Linda Park Calcium [Mass/Vol] 9.5 mg/dL Normal 8.5-10.1 [facility] Comment on above: Performed By: #### H STROPN, CMP, BNP, MG #### [facility] [address] [address] [address] Linda Park Chloride [Moles/Vol] 104 mmol/L Normal 98-107 [facility] Comment on above: Performed By: #### H STROPN, CMP, BNP, MG #### [facility] [address] [address] [address] Linda Park CO2 [Moles/Vol] 28.6 mmol/L Normal 21.0-32.0 [facility] Comment on above: Performed By: #### H STROPN, CMP, BNP, MG #### [facility] [address] [place] [address] Dr. Linda Park Creatinine [Mass/Vol] 0.87 mg/dL Normal 0.55-1.02 [facility] Comment on above: Performed By: #### H STROPN, CMP, BNP, MG #### [facility] [address] [place] [address] Dr. Linda Park EGFR-AF SUDANESE >60 Normal >=60 [facility] Comment on above: Performed By: #### H STROPN, CMP, BNP, MG #### [facility] [address] [place] [address] Dr. Linda Park EGFR-NON AF SUDANESE >60 Normal >=60 [facility] Comment on above: Performed By: #### H STROPN, CMP, BNP, MG #### [facility] [address] [place] [address] Dr. Linda Park Globulin (S) [Mass/Vol] 3.3 g/dL Normal [facility] Comment on above: Performed By: #### H STROPN, CMP, BNP, MG #### [facility] [address] [place] [address] Dr. Linda Park Glucose [Mass/Vol] 95 mg/dL Normal 74-106 [facility] Comment on above: Performed By: #### H STROPN, CMP, BNP, MG #### [facility] [address] [address] [address] Linda Park Potassium [Moles/Vol] 4.4 mmol/L Normal 3.5-5.1 [facility] Comment on above: Performed By: #### H STROPN, CMP, BNP, MG #### [facility] [address] [place] [address] Dr. Linda Park Protein [Mass/Vol] 7.0 g/dL Normal 6.4-8.2 [facility] Comment on above: Performed By: #### H STROPN, CMP, BNP, MG #### [facility] [address] [address] [address] Linda Park Sodium [Moles/Vol] 140 mmol/L Normal 136-145 [facility] Comment on above: Performed By: #### H STROPN, CMP, BNP, MG #### [facility] [address] [address] [address] Linda Park Urea nitrogen [Mass/Vol] 14.0 mg/dL Normal 7.0-18.0 [facility] Comment on above: Performed By: #### H STROPN, CMP, BNP, MG #### [facility] [address] [address] [address] Linda Park Urea nitrogen/Creatinin e [Mass ratio] 16.1 mg/mg Normal [facility] Comment on above: Performed By: #### H STROPN, CMP, BNP, MG #### [facility] [address] [address] [address] Linda Park XR LSPINE MIN 4 [...] JAMIR SANCHEZ Date: 2022-04-30 06:55 Normal [facility] MG MAMM SCREEN 3D GONZALEZ CADon 03-05-2022 MG MAMM SCREEN 3D GONZALEZ CAD Patient: ELLI LINDSEY Exam Date: 03/05/2022 : 1945 Gender:F Ordering : DR DOCTOR ZAVALA Admission #: [id number] Family : DR. SAMINA TA M.D. Order #: [id number] CLICK HERE TO VIEW EXAM RADIOLOGY REPORT [...] with unknown cancer at age 72. LOCATION: [facility] BREAST COMPOSITION: Scattered areas fibroglandular density. [...] Arndt MD on 03/05/2022 at 12:09 Normal [facility] Basic Metabolic Profon 09-30 (cont.) Normal [facility] Comment on above: Result Comment: Aver age GFR for 70 or more years old: 75 mL/min/1.73sq mChronic Kidney Disease: <60 mL/min/1.73sq mKidney failure: <15 mL/min/1.73sq meGFR calculated using average adult body mass. Additional eGFR calculator available at:[email or web address]_crcl_[email or web address] at [facility] [address] [place] [address] Performed By: #### C DP, ALCB, BMP, TSH ####[facility] [place] [address] Anion gap 13 mmol/L Normal - [facility] Comment on above: Performed By: #### C DP, ALCB, BMP, TSH ####[address] [place] [address] BUN/CRE Ratio 26 High 9-20 [facility] Comment on above: Performed By: #### C DP, ALCB, BMP, TSH ####[address] [place] [address] Calcium 9.4 mg/dL Normal 8.6-10.4 [facility] Comment on above: Performed By: #### C DP, ALCB, BMP, TSH ####[address] [place] [address] Chloride 101 mmol/L Normal 98-107 [facility] Comment on above: Performed By: #### C DP, ALCB, BMP, TSH ####[address] [place] [address] CO2 25 mmol/L Normal 20-31 [facility] Comment on above: Performed By: #### C DP, ALCB, BMP, TSH ####[address] [place] [address] Creatinine 0.66 mg/dL Normal 0.50-0.90 [facility] Comment on above: Performed By: #### C DP, ALCB, BMP, TSH ####[address] [place] [address] eGFR (non-black) mL/min/{1.73_m2} Normal >60 [facility] Comment on above: Performed By: #### C DP, ALCB, BMP, TSH ####[address] [place] [address] Glucose mass conc 92 mg/dL Normal 70-99 [facility] Comment on above: Performed By: #### C DP, ALCB, BMP, TSH ####[address] [place] [address] Potassium molar conc 4.1 mmol/L Normal 3.7-5.3 [facility] Comment on above: Performed By: #### C DP, ALCB, BMP, TSH ####[facility] Hospital[place] [address] Sodium 139 mmol/L Normal 135-144 [facility] Comment on above: Performed By: #### C DP, ALCB, BMP, TSH ####[address] [place] [address] Urea nitrogen 17 mg/dL Normal 8-23 [facility] Comment on above: Performed By: #### C DP, ALCB, BMP, TSH ####[address] [address] Staging: NOT REPORTED Normal [facility] Comment on above: Performed By: #### C DP, ALCB, BMP, TSH ####[address] [address] CBC with Diffon 09-30-2017 Abs. Basophil 0.00 k/uL Normal 0.0-0.2 [facility] Comment on above: Result Comment: Perf ormed at [facility] [address] [place] [address] Performed By: #### C DP, ALCB, BMP, TSH ####[facility] [place] [address] Abs.Neutrophil (Seg) 4.30 k/uL Normal 1.8-7.7 [facility] Comment on above: Performed By: #### C DP, ALCB, BMP, TSH ####[address] [place] [address] Basophils/100 WBC Auto (Bld) 1 % Normal 0-2 [facility] Comment on above: Performed By: #### C DP, ALCB, BMP, TSH ####[place] [address] Eosinophils 0.10 10*3/uL Normal 0.0-0.4 [facility] Comment on above: Performed By: #### C DP, ALCB, BMP, TSH ####[place] [address] Eosinophils/100 leukocytes 3 % Normal 1-4 [facility] Comment on above: Performed By: #### C DP, ALCB, BMP, TSH ####[place] [address] Erythrocyte distribution width Auto Ratio (RBC) 13.6 % Normal 11.5-14.5 [facility] Comment on above: Performed By: #### C DP, ALCB, BMP, TSH ####[place] [address] Erythrocytes (RBC) 3.66 10*6/uL Low 4.0-5.2 [facility] Comment on above: Performed By: #### C DP, ALCB, BMP, TSH ####[place] [address] Hematocrit (HCT) 35.9 % Low 36-46 [facility] Comment on above: Performed By: #### C DP, ALCB, BMP, TSH ####[place] [address] Hemoglobin mass conc (Bld) 12.1 g/dL Normal 12.0-16.0 [facility] Comment on above: Performed By: #### C DP, ALCB, BMP, TSH ####[address] [place] [address] Lymphocytes 1.00 10*3/uL Normal 1.0-4.8 [facility] Comment on above: Performed By: #### C DP, ALCB, BMP, TSH ####[address] [place] [address] Lymphocytes/100 leukocytes 17 % Low 24-44 [facility] Comment on above: Performed By: #### C DP, ALCB, BMP, TSH ####[place] [address] MCH 33.1 pg Normal 26-34 [facility] Comment on above: Performed By: #### C DP, ALCB, BMP, TSH ####[place] [address] MCHC mass conc (RBC) 33.7 g/dL Normal 31-37 [facility] Comment on above: Performed By: #### C DP, ALCB, BMP, TSH ####[place] [address] MCV 98.1 fL Normal 80-100 [facility] Comment on above: Performed By: #### C DP, ALCB, BMP, TSH ####[address] [address] Monocytes 0.30 10*3/uL Normal 0.2-0.8 [facility] Comment on above: Performed By: #### C DP, ALCB, BMP, TSH ####[address] [address] Monocytes/100 leukocytes 6 % Normal 1-7 [facility] Comment on above: Performed By: #### C DP, ALCB, BMP, TSH ####[facility] [address] Neutrophil (Seg) 73 % High 36-66 [facility] Comment on above: Performed By: #### C DP, ALCB, BMP, TSH ####[address] [address] Platelet mean volume (PMV) 7.9 fL Normal 6.0-12.0 [facility] Comment on above: Performed By: #### C DP, ALCB, BMP, TSH ####[address] [address] Platelets 206 10*3/uL Normal 130-400 [facility] Comment on above: Performed By: #### C DP, ALCB, BMP, TSH ####[address] [address] WBC (Leukocytes) 5.8 10*3/uL Normal 3.5-11.0 [facility] Comment on above: Performed By: #### C DP, ALCB, BMP, TSH ####[address] [address] Auto Diff Performed NOT REPORTED Normal [facility] Comment on above: Performed By: #### C DP, ALCB, BMP, TSH ####[address] [address] Erythrocyte morphology NOT REPORTED Normal [facility] Comment on above: Performed By: #### C DP, ALCB, BMP, TSH ####[address] [address] Erythrocytes (RBC) NOT REPORTED Normal [facility] Comment on above: Performed By: #### C DP, ALCB, BMP, TSH ####[address] [address] Granulocytes/100 WBC (Bld) NOT REPORTED Normal 0.00-0.30 [facility] Comment on above: Performed By: #### C DP, ALCB, BMP, TSH ####[address] [address] Immature granulocytes #/vol (Bld) NOT REPORTED Normal 0 [facility] Comment on above: Performed By: #### C DP, ALCB, BMP, TSH ####[address] [address] Platelets NOT REPORTED Normal [facility] Comment on above: Performed By: #### C DP, ALCB, BMP, TSH ####[address] [address] WBC Morphology NOT REPORTED Normal [facility] Comment on above: Performed By: #### C DP, ALCB, BMP, TSH ####[address] [address] Drug Scr, Abuse, Uron 2017 Amphetamine(s),Ur Negative Normal NEG [facility] Comment on above: Result Comment: (Pos itive cutoff 1000 ng/mL) Performed By: #### D AU ####[address] [address] Barbiturate(s),Ur Negative Normal NEG [facility] Comment on above: Result Comment: (Pos itive cutoff 200 ng/mL) Performed By: #### D AU ####[address] [address] Base excess Negative Normal NEG [facility] Comment on above: Result Comment: (Pos itive cutoff 300 ng/mL) Performed By: #### D AU ####[address] [address] Benzodiazepine(s) Positive Abnormal NEG [facility] Comment on above: Result Comment: (Pos itive cutoff 200 ng/mL) Performed By: #### D AU ####[address] [address] Cannabinoid(s),Ur Negative Normal NEG [facility] Comment on above: Result Comment: (Pos itive cutoff 50 ng/mL) Performed By: #### D AU ####[address] [address] Interpretive Info Assay provides medic al screening only. The absence of expected drug(s) and/or Normal [facility] Comment on above: Result Comment: meta bolite(s) may indicate diluted or adulterated urine, limitations of testing or timing of collection.Testing for legal purposes should be confirmed by another method. To request confirmation of test result, please call the lab within 7 days of sample submission.Performed at [facility] [address] [place] [address] Performed By: #### D AU ####[address] [address] Opiate(s), Ur Negative Normal NEG [facility] Comment on above: Result Comment: (Pos itive cutoff 300 ng/mL) Performed By: #### D AU ####[address] [address] Oxycodone, Urine Positive Abnormal NEG [facility] Comment on above: Result Comment: (Pos itive cutoff 100 ng/mL) Performed By: #### D AU ####[address] [address] Phencyclidine, Ur Negative Normal NEG [facility] Comment on above: Result Comment: (Pos itive cutoff 25 ng/mL) Performed By: #### D AU ####[facility] [place] [address] Urine, methadone presence Negative Normal NEG [facility] Comment on above: Result Comment: (Pos itive cutoff 300 ng/mL) Performed By: #### D AU ####[address] [address] Buprenorphrine, Ur NOT REPORTED Normal NEG [facility] Comment on above: Performed By: #### D AU ####[address] [address] MDMA, Urine NOT REPORTED Normal NEG [facility] Comment on above: Performed By: #### D AU ####[address] [address] Methamphetamine, Ur NOT REPORTED Normal NEG [facility] Comment on above: Performed By: #### D AU ####[facility] [place] [address] Propoxyphene,Urine NOT REPORTED Normal NEG [facility] Comment on above: Performed By: #### D AU ####[address] [address] Urine, tricyclic antidepressants NOT REPORTED Normal [facility] [facility] Comment on above: Performed By: #### D AU ####[address] [address] Ethanol Alcoholon 09-30-2017 Ethanol mg/dL Normal <10 [facility] Comment on above: Performed By: #### C DP, ALCB, BMP, TSH ####[address] [address] Ethanol percent <0.010 Normal [facility] Comment on above: Result Comment: Perf ormed at [facility] [address] [place] [address] Performed By: #### C DP, ALCB, BMP, TSH ####[facility] [place] [address].[place] [address] Thyroid Stim. Horm.on 2017 Thyroid stimulating hormone (TSH) 0.87 m[IU]/L Normal 0.30-5.00 [facility] Comment on above: Result Comment: Perf ormed at [facility] [address] [place] [address] Performed By: #### C DP, ALCB, BMP, TSH ####[address] [address] [facility] DIGITAL DIAGNOSTIC BILAT ERALon 04-27-2017 [facility] DIGITAL DIAGNOSTIC BILATERAL This [...] sent to the patient regarding the results.[employer] recommends annual mammograms for women 40years and older.Interpreted by:TIM Robinigned by:Elli Aparicio MD04/27/17 Recipients:Mark Francois MD - In [facility] - FaxFinal result Normal [facility] Vital Signs Date Time Vital Sign Value Performing Clinician Faci lity 05-08-2024 12:37-0500 Body height 152.4 cm Ken Jones MD Work Phone: [facility] 05-08-2024 12:37-0500 Body mass index (BMI) [Ratio] 36.29 kg/m2 Ken Jones MD Work Phone: [facility] 05-08-2024 12:37-0500 Body weight 84.28 kg Ken Jones MD Work Phone: [facility] 05-08-2024 12:37-0500 Diastolic blood pressure 98 mm[Hg] Ken Jones MD Work Phone: [facility] 05-08-2024 12:37-0500 Heart rate 73 /min Ken Jones MD Work Phone: [facility] 05-08-2024 12:37-0500 SaO2% (BldA) [Mass fraction] 97 % Ken Jones MD Work Phone: [facility] [employer] [facility] 05-08-2024 12:37-0500 Systolic blood pressure 144 mm[Hg] Ken Jones MD Work Phone: [facility] [employer] [facility] 02-07-2024 11:10-0400 Diastolic blood pressure 66 mm[Hg] CAROLINE Lua McNeal Work Phone: [facility] 02-07-2024 11:10-0400 Heart rate 65 /min CAROLINE Lua McNeal Work Phone: [facility] 02-07-2024 11:10-0400 Respiratory rate 16 /min CONTRACT DRIVER Fatuma Gustavo Work Phone: [facility] 02-07-2024 11:10-0400 SaO2% (BldA) [Mass fraction] 98 % CONTRACT DRIVERJose Medina Work Phone: [facility] 02-07-2024 11:10-0400 Systolic blood pressure 127 mm[Hg] CAROLINE Lua McNeal Work Phone: [facility] 02-07-2024 09:19-0400 Body height 154.94 cm CONTRACT DRIVERJose Medina Work Phone: [facility] 02-07-2024 09:19-0400 Body weight 81.19 kg CONTRACT DRIVERJose Medina Work Phone: [facility] Encounters Encounter Date Encounter Type Care Provider Facility Start: 05-08-2024 End: 05-08-2024 Office outpatient visit 25 minutes Ken Jones MD Work Phone: [facility] Comment on above: Coronary artery dise ase involving [place] coronary artery of [place] heart without angina pectoris (Primary Dx); Pulmonary hypertension ([facility]); Benign essential hypertension; Dyslipidemia; Dyspnea on exertion Start: 05-08-2024 End: 05-08-2024 ambulatory [place] Vishal JONES [facility] Start: 05-05-2024 End: 05-05-2024 Telephone encounter Marsha Layne CMA [facility] Start: 04-12-2024 End: 04-26-2024 Telephone encounter Kimberlee Garza [facility] Work Phone: [facility] Comment on above: Hearing Aid Problem Start: 03-30-2024 End: 03-31-2024 Lea Araiza RN [facility] Comment on above: Med Refill Start: 02-07-2024 End: 02-07-2024 Admission to same day surgery center CAROLINE Medina Work Phone: [facility] [place] Work Phone: Start: 02-07-2024 End: 02-07-2024 ambulatory CAROLINE Medina Work Phone: [facility] Work Phone: Start: 01-26-2024 End: 01-26-2024 ambulatory [facility] Start: 07-12-2023 Orders Only Shukri Jeong MD Work Phone: [facility] Start: 11-05-2022 End: 11-06-2022 ambulatory ADI SHAMMO Facility:[facility] Start: 09-24-2022 End: 09-25-2022 ambulatory DAINA SANDY . Facility:[facility] Start: 08-25-2022 Encounter for genera l adult medical examination without abnormal findings ADI FIGUEROA [facility] Start: 08-25-2022 Encounter for preprocedural cardiovascular examination DR BEAU WILDER . [facility] Start: 08-25-2022 End: 08-25-[address] [...] Start: 07-23-2022 End: 07-24-[address] BEAU WILDRE . Facility:[facility] Start: 07-07-2022 End: 01-24-[address] BEAU WILDER . Facility:[facility] Start: 06-23-2022 End: 06-24-[address] BEAU WILDER . Facility:[facility] Start: 04-29-2022 End: 04-30-2022 ambulatory ADI FIGUEROA Facility:[facility] Start: 03-05-2022 End: 03-06-[address] DOCTOR ASHBY Facility:[facility] Start: 09-30-2017 End: 09-30-2017 Emergency department patient visit MEGHANN Reg TA [facility] Start: 07-20-2017 Patient encounter procedure Shukri Jeong MD Work Phone: [facility] Start: 04-27-2017 End: 04-28-2017 Ambulatory KENZIE ALMONTE [facility] Procedures Date Procedure Procedure Detail Performing Clinician Start: 05-08-2024 Ecg routine ecg w/least 12 lds w/i&r Jerrod Jones MD Work Phone: Start: 05-08-2024 Follow-up visit Follow-up KEN JONES Start: 08-18-2021 Adult depression screening assessment Tatiana [...] Td Vaccines (2 - Td or Tdap) [facility] Start: 05-08-2025 Tobacco Screening Tobacco Screening [facility] Start: 07-06-2024 End: 07-06-2024 Patient encounter procedure 07/06/2024 11:30 AM EST Office Visit [facility] [address] [place] [address] Baltazar Coronado DPM [address] [facility] [address] [place] [address] [facility] Start: 06-16-2024 COVID-19 Vaccine ( season) COVID-19 Vaccine () [facility] Start: 05-15-2024 End: 05-08-2025 Basic metabolic 2000 panel - Serum or Plasma Basic Metabolic Panel Lab Routine Coronary artery disease involving [place] coronary artery of [place] heart without angina pectoris Pulmonary hypertension ([facility]) Benign essential hypertension Dyslipidemia Dyspnea on exertion Expected: 05/15/2024, Expires: 05/08/2025 [facility] Work Phone: Comment on above: Expected: 05/15/2024 , Expires: 05/08/2025 Start: 05-09-2024 End: 05-09-2024 Patient encounter procedure 05/09/2024 10:00 AM EST Office Visit [facility] [address] [place] [address] Ken Jones MD [address] [place] [address] [facility] Start: 05-08-2024 End: 05-08-2024 Patient encounter procedure 05/08/2024 12:45 PM EST Office Visit [facility] [address] [place] [address] Ken Jones MD [address] [place] [address] [facility] Start: 03-02-2024 Adult BMI Screening Adult BMI Screen ing [facility] Start: 03-02-2024 Tobacco Screening Tobacco Screening [facility] Start: 02-13-2024 COVID-19 Vaccine ( season) COVID-19 Vaccine () [facility] Start: 02-13-2024 COVID-19 Vaccine ( season) COVID-19 Vaccine ( season) [facility] Start: 02-13-2024 Influenza vaccination Influenza Vacc ine [facility] Start: 02-07-2024 [facility] Start: 02-07-2024 Bone marrow sampling [facility] Start: 06-01-2023 Adult BMI Follow Up Plan Adult BMI Follow Up Plan [facility] Start: 02-12-2023 COVID-19 Vaccine ( season) COVID-19 Vaccine () [facility] Start: 02-12-2023 Influenza vaccination Influenza Vacc ine [facility] Start: 08-18-2022 Depression Screening Depression Scre ening [facility] Start: 02-18-2022 Fall Risk Screening Fall Risk Screen ing [facility] Start: 02-18-2022 Medicare Annual Wellness Visit Medicare Annual Wellness Visit [facility] Start: 2010 Fall Risk Screening Fall Risk Screen ing [facility] End: 03-30-2025 Basic metabolic 2000 panel - Serum or Plasma Basic Metabolic Panel Lab Routine Coronary artery disease involving [place] coronary artery of [place] heart without angina pectoris 1 Occurrences starting 03/31/2024 until 03/30/2025 [facility] Work Phone: Comment on above: 1 Occurrences starti ng 03/31/2024 until 03/30/2025 End: 03-30-2025 Magnesium [Mass/volume] in Serum or Plasma Magnesium Lab Routine Coronary artery disease involving [place] coronary artery of [place] heart without angina pectoris 1 Occurrences starting 03/31/2024 until 03/30/2025 [facility] Comment on above: 1 Occurrences starti ng 03/31/2024 until 03/30/2025 Patient Education [facility] Bone Marrow Aspiration or Biopsy Know your Meds [facility] Work Phone: Immunizations Immunization Date Immunization Notes Care Provider Fa ciliaraceli 03-04-2023 influenza virus vacc ine, unspecified formulation Densie Araiza RN [facility] 03-04-2022 influenza, injectabl e, quadrivalent, preservative free Shukri Jeong MD Work Phone: [facility] 03-04-2022 influenza virus vacc ine, unspecified formulation Shukri Jeong MD Work Phone: [facility] 04-04-2021 influenza, injectabl e, quadrivalent, contains preservative Shukri Jeong MD Work Phone: [facility] 03-13-2021 COVID-19, mRNA, LNP- S, PF, 30mcg/0.3mL Dose Shukri Jeong MD Work Phone: [facility] 08-13-2020 COVID-19, mRNA, LNP- S, PF, 30mcg/0.3mL Dose Shukri Jeong MD Work Phone: [facility] 07-22-2020 COVID-19, mRNA, LNP- S, PF, 30mcg/0.3mL Dose Shukri Jeong MD Work Phone: [facility] 02-06-2020 influenza, injectabl e, quadrivalent, preservative free Shukri Jeong MD Work Phone: [facility] 04-06-2019 zoster vaccine recombinant Shukri Jeong MD Work Phone: [facility] 03-09-2019 influenza, high dose seasonal, preservative-free Shukri Jeong MD Work Phone: [facility] 09-01-2018 zoster vaccine recombinant Shukri Jeong MD Work Phone: [facility] 02-17-2018 Seasonal trivalent influenza vaccine, adjuvanted, preservative free Shukri Jeong MD Work Phone: [facility] 08-26-2017 pneumococcal polysaccharide vaccine, 23 valent Shukri Jeong MD Work Phone: [facility] 02-10-2017 influenza virus vacc ine, unspecified formulation Shukri Jeong MD Work Phone: [facility] 02-20-2016 influenza, seasonal, injectable, preservative free Shukri Jeong MD [facility] 10-09-2015 pneumococcal conjuga te vaccine, 13 valent Shukri Jeong MD Work Phone: [facility] 03-08-2015 Influenza TIV (IM) Shukri soto MD Work Phone: [facility] 07-07-2013 pneumococcal polysaccharide vaccine, 23 valromina Jeong MD Work Phone: [facility] 06-14-2007 pneumococcal polysaccharide vaccine, 23 valromina Jeong MD Work Phone: [facility] 02-26-1999 pneumococcal polysaccharide vaccine, 23 valromina Jeong MD Work Phone: [facility] Payers Date Payer Category Payer Self-pay 2024 Private Health Insurance [id number] 2023 Medicare [id number] 2022 [place]UST [id number] 2022-[facility] [phone] [address] [place] [address] [id number] 2014 Medicare [id number] 2010 Medicare [id number] 1959 Medicare [id number] 1959 Medicare [id number] 1959 Unknown [id number] 1945 Unknown [id number]. 593 1945 Unknown [id number] .[id number]. 593 1945 Unknown [id number] 2.16.840.1.716189.3.579.2. 593 1945 Unknown [id number] 2.16.840.1.724121.3.579.2. 593 1945 Unknown [id number] 2.16.840.1.563863.3.579.2. 593 1945 Unknown [id number] 2.16.840.1.133562.3.579.2. 593 1945 Unknown [id number] 2.16.840.1.473332.3.579.2. 593 1945 Unknown [id number] 2.16.840.1.074416.3.579.2. 593 1945 Unknown [id number] 2.16.840.1.765597.3.579.2. 593 1945 Unknown [id number] 2.16.840.1.762095.3.579.2. 593 1945 Unknown [id number] 2.16.840.1.893613.3.579.2. 593 1945 Unknown [id number] 2.16.840.1.918647.3.579.2. 593 1945 Unknown [id number] 2.16.840.1.672105.3.579.2. 1286 1945 Unknown [id number] 2.16.840.1.998006.3.579.2. 1286 Unknown [id number] [id number]. 531 Social History Date Type Detail Facility Start: 06-01-2022 End: 02-22-2023 Tobacco smoking status NHIS Never smoked tobacco [facility] Start: 06-01-2022 Tobacco use and exposure Smoke less tobacco non-user [facility] Start: 03-02-2023 End: 05-08-2024 Alcohol intake Current drinker of alcohol (finding) [facility] Start: 03-09-2019 End: 06-26-2020 History of Social function [facility] Start: 03-09-2019 End: 06-26-2020 Social connection and isolation panel [facility] Frequency of Communi cation with Friends and Family Three times a week [facility] Start: 03-09-[address] [facility] Start: 1945 Sex Assigned At Not on file [facility] Start: 1945 Sex Assigned At Female F [facility] Start: 01-15-2015 Sex Female (finding) [facility] Clinical Notes 06-23-2022 to 05-08-2024 Ken Jones MD - 05/08/2024 12:45 PM ESTTelephone Encounter - Marsha Layne, [facility] - 05/05/2024 9:34 AM ESTTelephone Encounter - Marsha Layne, [facility] - 05/05/2024 9:34 AM EST Note Date & Type Note Facility 05-08-2024 History of Presen t illness Narrative Mariela [facility] Date of visit: 05/08/2024 Date of : 1945 Age: 78 y.o. Patient Active Problem List Diagnosis Benign essential hypertension Chronic right-sided low back pain with right-sided sciatica Dyslipidemia Malignant neoplasm of female breast ([facility]) Temporomandibular joint disorder Pseudophakia Medicare annual wellness visit, subsequent Pain in both knees Severe obesity (BMI 35.0-39.9) with comorbidity ([facility]) Gastroesophageal reflux disease with esophagitis Thoracic outlet syndrome Depressive disorder Tension headache Sprain of right rotator cuff capsule Spinal stenosis of lumbar region Facet arthritis of lumbar region Scoliosis of lumbar spine Abnormal echocardiogram Pulmonary hypertension ([facility]) Allergies Allergen Reactions Hay Fever And Allergy Relief Other Paper tape Current Outpatient Medications Medication Sig Dispense Refill ALPRAZolam (XANAX) 0.25 mg tablet Take 1 tablet (0.25 mg total) by mouth nightly. ARIPiprazole (ABILIFY) 2 mg tablet Take 1 tablet (2 mg total) by mouth in the morning. lansoprazole (PREVACID SOLUTAB) 15 mg disintegrating tablet Take 1 tablet (15 mg total) by mouth in the morning. Indications: heartburn. levocetirizine (XYZAL) 5 mg tablet Take 1 tablet (5 mg total) by mouth nightly. lisinopril-hydroCHLOROthiazide (PRINZIDE,ZESTORETIC) 20-25 mg per tablet Take 0.5 tablets by mouth in the morning and 0.5 tablets before bedtime. 90 tablet 0 bkzrdndx-[id number]-QP-calcium &mins (THERAGRAN-M) 9 mg iron-400 mcg tablet Take 1 tablet by mouth in the morning. Indications: lack in minerals, vitamin deficiency. pravastatin (PRAVACHOL) 20 mg tablet TAKE 1 TABLET DAILY 90 tablet 3 vitamin E 200 units capsule Take 2 capsules (400 Units total) by mouth in the morning. Indications: deficiency of vitamin E. traMADoL (ULTRAM) 50 mg tablet Take 1 tablet (50 mg total) by mouth every 6 (six) hours as needed for pain. (Patient not taking: Reported on 05/08/2024) No current facility-administered medications for this visit. Chief Complaint Patient presents with Follow-up EST PT F/U 1 YR L/S MAS, SCHED W/PT History of Present Illness Patient is a 78-year-old female presents to cardiology clinic today for follow-up. Patient is doing well. Patient denies any chest pain, shortness of breath, palpitations, lightheadedness, dizziness, or syncope. Past Medical History: Diagnosis Date Breast cancer ([facility]) 2013 RT GERD (gastroesophageal reflux disease) Hyperlipidemia Hypertension Menopausal syndrome (hot flashes) No data recorded No data recorded No data recorded Past Surgical History: Procedure Laterality Date APPENDECTOMY BELPHAROPTOSIS REPAIR Bilateral BLEPHAROPLASTY W/ LASER BREAST BIOPSY BREAST LUMPECTOMY Right 2014 RADIATION AND CHEMO Cardiac catheterization- Cors + Right heart + LV gram/press 19593 N/A 02/08/2023 Performed by Abdiel Lemus MD at [facility] CARDIAC CATH LABS CATARACT EXTRACTION Bilateral SECTION COLONOSCOPY 01/26/2023 FRACTURE SURGERY HYSTERECTOMY AGE 27 INTRACAPSULAR CATARACT EXTRACTION Bilateral LASIK Left ORIF TIBIA & FIBULA FRACTURES TONSILLECTOMY Family History Problem Relation Age of Onset Heart disease Mother Cataracts Mother Heart disease Father Testicular cancer Father Cataracts Father Heart disease Brother Breast cancer Paternal Grandmother Leukemia Other Social History Socioeconomic History Marital status: Spouse name: Not on file Number of children: Not on file Years of education: Not on file Highest education level: GED or equivalent Occupational History Not on file Tobacco Use Smoking status: Never Smokeless tobacco: Never Vaping Use Vaping status: Never Used Substance and Sexual Activity Alcohol use: Yes Alcohol/week: 1.0 - 2.0 standard drink of alcohol Types: 1 - 2 Cans of beer per week Drug use: No Sexual activity: Defer Other Topics Concern Caffeine Use Yes Social History Narrative Not on file Social Drivers of Health Financial Resource Strain: Low Risk (03/09/2019) Overall Financial Resource Strain (CARDIA) Difficulty of Paying Living Expenses: Not hard at all Food Insecurity: No Food Insecurity (05/08/2024) Hunger Screening Food Insecurity - Worry: Never True Food Insecurity - Inability: Never True Transportation Needs: No Transportation Needs (03/09/2019) PRAPARE - Transportation Lack of Transportation (Medical): No Lack of Transportation (Non-Medical): No Physical Activity: Sufficiently Active (03/09/2019) Exercise Vital Sign Days of Exercise per Week: 7 days Minutes of Exercise per Session: 50 min Stress: Stress Concern Present (03/09/2019) [employer] [place] [employer] - Occupational Stress Questionnaire Feeling of Stress : To some extent Social Connections: Socially Integrated (03/09/2019) Social Connection and Isolation Panel [NHANES] Frequency of Communication with Friends and Family: Three times a week Frequency of Social Gatherings with Friends and Family: Three times a week Attends Islam Services: More than 4 times per year Active Member of Clubs or Organizations: Yes Attends Club or Organization Meetings: 1 to 4 times per year Marital Status: Interpersonal Safety: Not At Risk (03/09/2019) Humiliation, Afraid, Rape, and Kick questionnaire Fear of Current or Ex-Partner: No Emotionally Abused: No Physically Abused: No Sexually Abused: No Housing Instability: Not on file Review of Systems Review of Systems Constitutional: Negative. HENT: Positive for hearing loss. Eyes: Negative. Cardiovascular: Negative. Respiratory: Negative. Endocrine: Negative. Hematologic/Lymphatic: Negative. Skin: Negative. Musculoskeletal: Positive for joint pain and joint swelling. Gastrointestinal: Positive for change in bowel habit. Genitourinary: Negative. Neurological: Negative. Psychiatric/Behavioral: Negative. Allergic/Immunologic: Positive for environmental allergies. Vascular: Negative. CARDIOVASCULAR: Please review HPI. Physical Examination General appearance: Alert, oriented and cooperative. In no acute distress. Skin: Warm and dry to touch. Head: Normocephalic, without obvious abnormality, atraumatic. Ears, Nose, Mouth, Throat: Throat clear without erythema or exudate. Dentition intact. Eyes: Conjunctivae unremarkable, EOM intact. Neck: No JVD, No carotid bruit. Neck supple, trachea midline. Respiratory: Clear to auscultation bilaterally, no use of accessory muscles. Cardiovascular: RRR with normal S1 and S2 with no murmurs. Gastrointestinal: Soft, non-tender. Bowel sounds normal. Musculoskeletal: + peripheral edema. Neurologic: Oriented to time, person and place, affect appropriate. No focal/major motor defects noted. Psychiatric: Appropriate mood, memory and judgement. VITAL SIGNS: BP (!) 144/98 (BP Site: Left Arm, BP Postition: Sitting) Pulse 73 Ht 152.4 cm (5') Wt 84.3 kg (185 lb 12.8 oz) SpO2 97% BMI 36.29 kg/m No orders of the defined types were placed in this encounter. There are no discontinued medications. IMPRESSIONS/PLAN 1. Coronary artery disease involving [place] coronary artery of [place] heart without angina pectoris - POCT EKG 2. Pulmonary hypertension (CMS-HCC) 3. Benign essential hypertension 4. Dyslipidemia 5. 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 We reviewed her most recent right heart catheterization in detail. Recommend adding spironolactone today as she was mildly volume overloaded in her most recent wedge pressure was 20 mmHg. She is currently on lisinopril/HCTZ. Check BMP in 1 week. She also was getting iron transfusion is now on oral iron. Follow-up with Cardiology in a few months to reassess volume status and symptoms. TODAYS ORDERS Orders Placed This Encounter Procedures POCT EKG FOLLOW UP No follow-ups on file. 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 Patient verbalizes understanding. documented in this encounter [facility] 05-05-2024 Telephone encounter Note Called patient to remind them to bring their most current copy of their medication list with them to their appt. Patient verbalizes understanding. [facility] 04-25-2024 Telephone encounter Note Patient called. I tracked order and aids arrived today from [employer]. Told patient the aids could be sent to [facility] where she can pick them up. [facility] hours were reviewed. [facility] 04-25-2024 Miscellaneous Notes Patient called. I tracked order and aids arrived today from [employer]. Told patient the aids could be sent to [facility] where she can pick them up. [facility] hours were reviewed. Pt wants us to call her at [phone] when her aids are back from repair Pt dropped off both aids in [facility] office. Aids not holding charge and she believes filters need to be changed. Aids go out of warranty 05-21-24. Called pt and told her I recommend sending aid in for EOW repair + check battery and she agreed. Pt notified Chaim has been taking 2-3 weeks for repairs. We will call her when aids are back from [employer] documented in this encounter [facility] 04-17-2024 Telephone encounter Note Pt wants us to call her at [phone] when her aids are back from repair [facility] Work Phone: 04-12-2024 Telephone encounter Note Pt dropped off both aids in [place] office. Aids not holding charge and she believes filters need to be changed. Aids go out of warranty 05-21-24. Called pt and told her I recommend sending aid in for EOW repair + check battery and she agreed. Pt notified [facility] has been taking 2-3 weeks for repairs. We will call her when aids are back from [facility] 03-30-2024 Miscellaneous Notes Last OV 03/02/23 Pt will call to make appt Last [facility] 12/18/22 Orders placed for BMP and Mg.slm documented in this encounter [facility] 03-30-2024 Telephone encounter Note Last OV 03/02/23 Pt will call to make appt Last [facility] 12/18/22 Orders placed for BMP and Mg.slm [facility] 09-24-2022 Note CONSULTATION CONSULTATION DATE: 09/24/2022 TO: [...] this infrequently. She is no longer on [place], since at least July. Her GERALDO on [...] our patients to inform us about any [id number] medications or herbal remedies/nutritional supplements/alternative remedies. 2. [...] options with their primary care provider. [facility] 08-20-2022 Note CONSULTATION CONSULTATION DATE: 08/20/2022 HISTORY [...] Medications include Celebrex 200 mg daily, multivitamin, [place] 5/325 daily p.r.n., Excedrin and baclofen 10 [...] L4, L5. She is to continue her [place] 5/325 daily p.r.n. and I highly encouraged her to use a heat rub and heat application once to twice daily. Patient agrees with this plan of care and will be brought back to the clinic thereafter. [facility] 07-23-2022 Note PAIN MANAGEMENT CONS ULTATION CONSULTATION [...] greatly aggravate her pain. Current medications include [place] 5/325 daily p.r.n., baclofen 10 mg q.h.s. [...] followed up in the office thereafter. [facility] 06-23-2022 Note CONSULTATION CONSULTATION DATE: 06/23/2022 CHIEF [...] the possibility of a neurosurgical consult at [facility]. The patient's PAST MEDICAL HISTORY / [...] PLAN: We will start the patient on [place] 5/325 one tablet p.o. daily. The patient [...] like to proceed. CC: DEIRDRE Bill [facility] Evaluation note No assessment inform ation available [facility] Work Phone: Evaluation note Diagnosis Coronary artery disease involving [place] coronary artery of [place] heart without angina pectoris- Primary documented in this encounter [facility]* Diagnosis Coronary artery disease involving [place] coronary artery of [place] heart without angina pectoris- Primary Pulmonary hypertension ([facility]) Other chronic pulmonary heart diseases Benign essential hypertension Essential hypertension, benign Dyslipidemia Other and unspecified hyperlipidemia Dyspnea on exertion Other dyspnea and respiratory abnormality documented in this [facility] on filedocumented in this encounter [facility] SystemInstructionsNot on filedocumented in this encounter [facility] Summary Purpose Family History No Family History Records Found Relationship Condition Age at Onset Recorded Date/T aleshia mother Myocardial infarction Unknown father Myocardial infarction Unknown Malignant neoplasm of prostate Unknown brother Myocardial infarction Unknown sister Leukemia Unknown brother Malignant neoplasm of prostate Unknown Advance Directives No Advanced Directives Records FoundDocuments on File Type Date Recorded 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 DATE CREATED AUTHOR AUTHOR'S ORGANIZ ATION 11/20/2022 [facility] DATE CREATED AUTHOR AUTHOR'S ORGANIZ ATION 02/12/2024 [facility] DATE CREATED AUTHOR AUTHOR'S ORGANIZ ATION 05/10/2024 [facility] Care Teams (unrecognized sec tion and content) Rv Technician Relationship Specialty Start Date End Date Adi Figueroa APRN-CNP [address] [place] [id number] PCP - General Primary Care 06/01/22 Team Status: Active Member Role Status Dates Fatuma Medina APRN Primary Care Provider Active Team Status: Inactive Member Role Status Dates Claribel Pickett MD Attending Provider Active St art: February 07, 2024 End: February 07, 2024 Fatuma Medina APRN Primary Care Provider Active Start: February 07, 2024 End: February 07, 2024 Rv Technician Relationship Specialty Start Date End Date Adi Figueroa APRN-CNP [address] [place] [address] PCP - General Primary Care 06/01/22 Rv Technician Relationship Specialty Start Date End Date Adi FigueroaCAROLINE-ROOM SERVICE WAITER/WAITRESS [address] [place] [address] PCP - General Primary Care 06/01/22 Rv Technician Relationship Specialty Start Date End Date Fatuma Medina, CONTRACT DRIVER-MANAGER RETIREMENT [address] [place], [place] [id number] PCP - General Family Medicine 05/08/24 Goals (unrecognized section and content) Goals may be documented in a n alternate section Reason for Visit (unrecogniz ed section and content) Reason Onset Date Comments Med Refill 03/30/2024 Reason Onset Date Comments Hearing Aid Problem 04/12/2024 Reason Comments Follow-up EST PT F/U 1 YR L/S MAS, SCHED W/PT FOR RECORDS PERTAINING TO PATIENTS WHO ARE [...] BE BASED ON THE PRIMARY CLINICAL RECORDS. [employer] provides no warranty or guarantee of the accuracy or completeness of information in this document.
[2024-06-23 09:09] LABS: Anion Gap 13.8; BUN Creatinine Ratio 19.7; Calcium 9.1 mg/dL (8.5-10.1); Carbon Dioxide 25.9 mmol/L (21.0-32.0); Chloride 103 mmol/L (98-107); Estimated GFR (African America 54 (>=60 mL/min/1.73m^2); Estimated GFR (Non-African Ame 45 (>=60 mL/min/1.73m^2); Glucose 153 mg/dL (74-106); Potassium 4.7 mmol/L (3.5-5.1); Sodium 138 mmol/L (136-145)
== END 2024-06-23 08:19 | disposition home or self-care (01) ==
LOC: LAB 08:22
PROVIDERS: PCP Nurse Practitioner
DX: I25.10 Atherosclerotic heart disease of native coronary artery without angina pectoris (principal); I27.20 Pulmonary hypertension, unspecified; I10 Essential (primary) hypertension; E78.5 Hyperlipidemia, unspecified; R06.09 Other forms of dyspnea
CPT/HCPCS: 36415; 80048

== ENCOUNTER 2024-08-07 07:56 | Outpatient (OUT) | payer MEDICARE, SELFPAY ==
[2024-08-07 08:55] LABS: Alanine Aminotransferase 12 U/L (14-59); Albumin Globulin Ratio 1.2; Albumin Level 3.7 g/dL (3.4-5.0); Alkaline Phosphatase 69 U/L (46-116); Anion Gap 14.7; Aspartate Amino Transferase 16 U/L (15-37); Bilirubin Total 0.4 mg/dL (0.2-1.0); Calcium 9.5 mg/dL (8.5-10.1); Chloride 105 mmol/L (98-107); Chol HDL Ratio 2.6; Cholesterol 137 mg/dL (<=200); Estimated GFR (African America 52 (>=60 mL/min/1.73m^2); Estimated GFR (Non-African Ame 43 (>=60 mL/min/1.73m^2); Glucose 98 mg/dL (74-106); HDL Cholesterol 53 mg/dL (40-60); LDL Cholesterol Calculated 57.8 mg/dL; Potassium 4.7 mmol/L (3.5-5.1); Sodium 140 mmol/L (136-145); Total Protein 6.7 g/dL (6.4-8.2); Triglycerides 131 mg/dL (<=150); VLDL CHOLESTEROL 26.2 mg/dL
== END 2024-08-07 07:57 | disposition home or self-care (01) ==
LOC: LAB 07:58
PROVIDERS: PCP Nurse Practitioner
DX: I10 Essential (primary) hypertension (principal)
CPT/HCPCS: 36415; 80053; 80061

== ENCOUNTER 2024-08-23 07:31 | Emergency (ER) | payer MEDICARE, SELFPAY ==
--- OUTSIDE RECORDS SUMMARY | 2024-08-23 07:44 | XMS_ITS | CCD ---
Author Organization [facility] Care Team Providers Care Kiss Machine Operator Name Role Phone KENZIE ALMONTE [...] ADI Attending Unavailable SHAMMO, ADI Admitting Unavailable DR JAMIR SANCHEZ Consulting Unavailable SHAMMO, ADI Consulting Unavailable MISC, DR CABRERA Attending Unavailable CALVIN, DR JOSE RAFAEL Mendes Consulting Unavailable MISC, DR DOCTOR Admitting Unavailable MISSulma, DR CABRERA Consulting Unavailable TINA ., DR BEAU Galvan Attending Unavailable TINA ., DR BEAU Galvan Admitting Unavailable SHAMRI, ADI Primary Care Unavailable WILDER ., DR BEAU Galvan Consulting Unavailable WILDER ., DR BEAU Galvan Attending Unavailable WILDER ., DR BEAU Galvan Admitting Unavailable SHAMMO, ADI Primary Care Unavailable WILDER ., DR BEAU Galvan Consulting Unavailable WILDER ., DR BEAU Galvan Admitting Unavailable WILDER ., DR BEAU Galvan Attending Unavailable WILDER ., DR BEAU Galvan Consulting Unavailable SHAMRI, ADI Primary Care Unavailable NKECHI ALLEN Consulting Unavailable MD Claribel Pickett Attending Provider [place] [facility] Primary Care Provider Claribel Pickett Attending Unavailable Claribel Pickett Admitting Unavailable [facility] Care Unavailable Unavailable Primary Care Provider UnavailBOONE Hutchins Referring Unavailable [facility] [place], ADI Primary Care Unavailable KEN JONES Attending Unavailable SHAMRI, ADI Referring Unavailable [facility] Primary Care Unavailable BALTAZAR CORONADO Attending Unavailable Shamia ACCOUNT DEVELOPMENT SPECIALIST-[facility], [place] Primary Care Provider [phone] [place] ACCOUNT DEVELOPMENT SPECIALIST-[facility], [place] Primary Care Provider [phone] Allergies Allergy Classification Reported Allergen(s) Allergy Type Date of Onset Reaction(s) Facility (5 sources) [facility]; Translations: [HAY FEVER AND ALLERGY RELIEF] Propensity to adverse reactions to drug (disorder) 5 [facility] (5 sources) OTHER; Translations: [OTHER] Propensity to adverse reactions to food (disorder) 6 [facility] Medications Current Medications Medication Drug Class(es) Dates [...] per tablet Indications: 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 180 tablet 3 05/08/2024 Active Start: 02-07-2024 take 1 tablet by once daily Lisinopril-Hydrochlorothiazide Active 1 TAB PO [...] Daily at bedtime February 07, 2024 12:00am qdcfbtzy-nqnt-CS-calc ium &mins (THERAGRAN-M) 9 mg iron-400 mcg tablet (4 sources) yozwjcly-cpgk-TQ -ca lcium &mins (THERAGRAN-M) 9 mg iron-400 mcg tablet Indications: mineral deficiency , vitamin deficiency Take 1 tablet by mouth in the morning. Indications: lack in minerals, vitamin deficiency. 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; Translations: [Coronary arteriosclerosis] Onset: 05-08-2024 03-30-2024 Chronic Disorders of lipid metabolism (6 sources) Hyperlipidemia, unspecified; Translations: [Dyslipidemia] Onset: 12-24-2015 12-24-2015 Chronic Esophageal disorders (4 [...] Translations: [Depressive disorder] Onset: 10-01-2017 10-01-2017 Chronic Mycoses (2 sources) Pain in toe; Translations: [Tinea unguium] 07-06-2024 Episodic Other acquired deformities (1 source) Other forms of scoliosis, lumbar region; Translations: [OTHER FORMS SCOLIOSIS LUMBAR REGION] Onset: 06-25-2022 Chronic Other acquired deformities (4 sources) Scoliosis of lumbar spine; Translations: [Scoliosis, unspecified] Onset: 06-01-2022 06-01-2022 Chronic Other acquired deformities (2 sources) Deformity of metatarsal; Translations: [Unspecified acquired deformity of left lower leg] 07-06-2024 Episodic Other acquired deformities (2 sources) Deformity of metatarsal; Translations: [Unspecified acquired deformity of right lower leg] 07-06-2024 Episodic Other connective tissue disease (1 source) Other [...] Chronic Pulmonary heart disease (6 sources) Pulmonary hypertension, unspecified; Translations: [Pulmonary hypertension] Onset: 12-11-2022 12-11-2022 Chronic Spondylosis; intervertebral disc [...] POCT EKGOrdered By: Marsha Layne on 05-08-2024 [facility] Activated partial thrombopla stin time (aPTT) in platelet poor plasma by coagulation aOrdered By: Claribel Pickett on 02-07-2024 aPTT Coag (PPP) [Time] 36.0 s 25.1-36.5 [facility] Comment on above: A hematocrit value g reater than 55% may lead to inaccurate results in coagulation testing. Patients having hematocrit values >55% require a special collection tube for coagulation studies. Please contact the laboratory at [phone] for redraw instructions. Automated basophil %Ordered By: Claribel Pickett on 02-07-2024 Basophils/100 WBC (Bld) 0.6 % Normal . [facility] Comment on above: Order Comment: STAT FOR CT BX Performed By: #### C BC, PP #### [address] Automated basophil countOrde red By: Claribel Pickett on 02-07-2024 Basophils (Bld) [#/Vol] 0.0 10*3/uL Normal 0.0-0.2 [facility] Comment on above: Order Comment: STAT FOR CT BX Result Comment: PERF ORMED BY: [place] [address] PATHOLOGIST BANQUET STEWARDESS KATRINA PATTERSON M.D. Performed By: #### C BC, PP #### [address] Automated blood monocyte cou ntOrdered By: Claribel Pickett on 02-07-2024 Monocytes (Bld) [#/Vol] 0.6 10*3/uL Normal 0.0-0.8 [facility] Comment on above: Order Comment: STAT FOR CT BX Performed By: #### C BC, PP #### [address] Automated eosinophil %Ordere d By: Claribel Nieves on 02-07-2024 Eosinophils/100 WBC (Bld) 2.5 % Normal . [facility] Comment on above: Order Comment: STAT FOR CT BX Performed By: #### C BC, PP #### [address] Automated eosinophil countOr dered By: Claribel Nieves on 02-07-2024 Eosinophils (Bld) [#/Vol] 0.2 10*3/uL Normal 0.0-0.45 [facility] Comment on above: Order Comment: STAT FOR CT BX Performed By: #### C BC, PP #### [address] Automated monocyte %Ordered By: Claribel Pickett on 02-07-2024 Monocytes/100 WBC (Bld) 7.6 % Normal . [facility] Comment on above: Order Comment: STAT FOR CT BX Performed By: #### C BC, PP #### [address] Automated neutrophil %Ordere d By: Claribel Pickett on 02-07-2024 Neutrophils/100 WBC (Bld) 72.6 % Normal . [facility] Comment on above: Order Comment: STAT FOR CT BX Performed By: #### C BC, PP #### [address] guided bone marrow bx/asp iron 02-07-2024 CT guided bone marrow bx/aspir [facility] Main [place] [address] [place] [address] CT Scan Report Signed Patient: Elli Lindsey MR#: [id number] : 1945 Acct:[id number] Age/Sex: 78 / F ADM Date: 02/07/24 Loc: CT Room: Type: [facility] Attending Dr: Claribel Pickett MD Copies to: [...] local anesthesia. Utilizing CT guidance, an 11-gauge GrabCAD biopsy needle was advanced into the right [...] biopsy. Impression dictated by: Sebastian Adams Jr., Jonathan02/07/2024 2:08 PM Dictation Location: [place] [address] Transcribed By: [facility] 02/07/24 1408 Dictated By: Sebastian Adams Jr, DO 02/07/24 1407 Signed By: 02/07/24 1408 Normal [facility] Coagulation Profileon 2023 aPTT Coag (Bld) [Time] 36.0 s Normal 25.1-36.5 [facility] Comment on above: Order Comment: STAT FOR CT BX Result Comment: A he matocrit value greater than 55% may lead to inaccurate results in coagulation testing. Patients having hematocrit values >55% require a special collection tube for coagulation studies. Please contact the laboratory at [phone] for redraw instructions. PERFORMED BY: [place] [address] PATHOLOGIST BANQUET STEWARDESS KATRINA PATTERSON M.D. Performed By: #### C BC, PP #### [address] Complete Blood Count Auto Di ffon 02-07-2024 Mean Corpuscular HGB Conc 34.1 g/dL Normal 32.0-35.0 [facility] Comment on above: Order Comment: STAT FOR CT BX Performed By: #### C BC, PP #### [address] NRBC% 0.0 /100{WBC} Normal 0-0.5 [facility] Comment on above: Order Comment: STAT FOR CT BX Performed By: #### C BC, PP #### [address] Erythrocyte distribution wid th [Ratio] by Automated countOrdered By: Claribel Pickett on 02-07-2024 Erythrocyte distribution width (RBC) [Ratio] 13.8 % Normal 11.9-15.3 [facility] Comment on above: Order Comment: STAT FOR CT BX Performed By: #### C BC, PP #### [address] Erythrocytes [#/volume] in B lood by Automated countOrdered By: Claribel Pickett on 02-07-2024 RBC (Bld) [#/Vol] 3.45 10*6/uL Low 3.60-5.00 [facility] Comment on above: Order Comment: STAT FOR CT BX Performed By: #### C BC, PP #### [address] Hematocrit [Volume Fraction] of Blood by Automated countOrdered By: Claribel Pickett on 02-07-2024 Hematocrit (Bld) [Volume fraction] 33.8 % Low 34.0-46.4 [facility] Comment on above: Order Comment: STAT FOR CT BX Performed By: #### C BC, PP #### [address] Hemoglobin [Mass/volume] in BloodOrdered By: Claribel Pickett on 02-07-2024 Hemoglobin (Bld) [Mass/Vol] 11.5 g/dL Low 11.8-15.4 [facility] Comment on above: Order Comment: STAT FOR CT BX Performed By: #### C BC, PP #### [address] INR in Platelet poor plasma by Coagulation assayOrdered By: Claribel Pickett on 02-07-2024 INR Coag (PPP) [Relative time] 1.0 {INR} Normal [facility] Comment on above: INR Therapeutic Rang e [...] Performed By: #### C BC, PP #### [address] Leukocytes [#/volume] correc denita for nucleated erythrocytes in Blood by Automated counOrdered By: Claribel Pickett on 02-07-2024 WBC corrected for nucl RBC Auto (Bld) [#/Vol] 8.0 10*3/uL 3.8-11.6 [facility] Leukocytes [#/volume] in Blo od by Automated countOrdered By: Claribel Pickett on 02-07-2024 WBC (Bld) [#/Vol] 8.0 10*3/uL Normal 3.8-11.6 [facility] Comment on above: Order Comment: STAT FOR CT BX Performed By: #### C BC, PP #### [place] [address] [place] Lymphocytes [#/volume] in Bl ood by Automated countOrdered By: Claribel Pickett on 02-07-2024 Lymphocytes (Bld) [#/Vol] 1.3 10*3/uL Normal 1.00-4.8 [facility] Comment on above: Order Comment: STAT FOR CT BX Performed By: #### C BC, PP #### [place] [address] [place] Lymphocytes/100 leukocytes i n Blood by Automated countOrdered By: Claribel Pickett on 02-07-2024 Lymphocytes/100 WBC (Bld) 16.7 % Normal . [facility] Comment on above: Order Comment: STAT FOR CT BX Performed By: #### C BC, PP #### [facility] [address] MCH [Entitic mass] by Automa denita countOrdered By: Claribel Pickett on 02-07-2024 MCH (RBC) [Entitic mass] 33.5 pg Normal 24.7-34.3 [facility] Comment on above: Order Comment: STAT FOR CT BX Performed By: #### C BC, PP #### [facility] [address] [place] [address] MCHC Auto (RBC) [Mass/Vol]Or dered By: Claribel Pickett on 02-07-2024 MCHC (RBC) [Mass/Vol] 34.1 g/dL 32.0-35.0 [facility] MCV [Entitic volume] by Auto mated countOrdered By: Claribel Pickett on 02-07-2024 MCV (RBC) [Entitic vol] 98.1 fL Normal 80-100 [facility] Comment on above: Order Comment: STAT FOR CT BX Performed By: #### C BC, PP #### [facility] [address] [place] [address] [place] Neutrophils [#/volume] in Bl ood by Automated countOrdered By: Claribel Pickett on 02-07-2024 Neutrophils (Bld) [#/Vol] 5.8 10*3/uL Normal 1.8-7.7 [facility] Comment on above: Order Comment: STAT FOR CT BX Performed By: #### C BC, PP #### [facility] [address] [place] [address] [place] Nucleated erythrocytes [Pres ence] in Blood by Automated countOrdered By: Claribel Pickett on 02-07-2024 Nucleated RBC Auto Ql (Bld) 0.0 /100{WBC} 0-0.5 [facility] Pathology Request for Lab Co rpon 02-07-2024 Pathology Request for Lab Samir Normal [facility] Comment on above: Order Comment: BM BI OPSY Result Comment: See report. Scanned copy available in EMR. PERFORMED BY: [place] [address] PATHOLOGIST BANQUET STEWARDESS KATRINA PATTERSON M.D. Performed By: #### P ATH TO [facility] #### [address] Platelet mean volume [Entiti c volume] in Blood by Automated countOrdered By: Claribel Pickett on 02-07-2024 Platelet mean volume (Bld) [Entitic vol] 7.2 fL Normal 6.3-10.7 [facility] Comment on above: Order Comment: STAT FOR CT BX Performed By: #### C BC, PP #### [address] Platelets [#/volume] in Bloo d by Automated countOrdered By: Claribel Pickett on 02-07-2024 Platelets (Bld) [#/Vol] 271 10*3/uL Normal 150-450 [facility] Comment on above: Order Comment: STAT FOR CT BX Performed By: #### C BC, PP #### [address] Prothrombin time (PT)Ordered By: Claribel Pickett on 02-07-2024 PT Coag (PPP) [Time] 11.8 s Normal 9.0-12.9 [facility] Comment on above: A hematocrit value g reater than 55% may lead to inaccurate results in coagulation testing. Patients having hematocrit values >55% require a special collection tube for coagulation studies. Please contact the laboratory at [phone] for redraw instructions. Order Comment: STAT FOR CT BX Result Comment: A he matocrit value greater than 55% may lead to inaccurate results in coagulation testing. Patients having hematocrit values >55% require a special collection tube for coagulation studies. Please contact the laboratory at [phone] for redraw instructions. Performed By: #### C BC, PP #### [address] XR KNEE RT 3 VWSon 4 XR KNEE RT 3 VWS XR KNEE [...] Garcia MD on 01/26/2024 10:55 PM Normal [facility] US CAROTID ART BILon 05-26-2 023 US CAROTID ART GONZALEZ EXAMINATION: US [...] JAMIR SANCHEZ Date: 2022-11-06 05:46 Normal [facility] BNPon 11-05-2022 Natriuretic peptide B (Bld) [Mass/Vol] 55.0 pg/mL Normal <=1,800.0 [facility] Comment on above: Performed By: #### H STROPN, CMP, BNP, MG #### [facility] [address] [place] [address] Dr. Linda Park ECHOCARDIO M/2D COMPLETEon 0 11-05-2022 ECHOCARDIO M/2D COMPLETE Patient: ELLI LINDSEY Exam Date: 11/05/2022 : 1945 Gender:F Ordering : ADI FIGUEROA Admission #: [id number] Family : Order #: [id number] CLICK HERE TO VIEW EXAM ECHOCARDIOGRAM REPORT [...] M.D. on 11/08/2022 at 15:17 Normal [facility] MAGNESIUMon 11-05-2022 Magnesium [Mass/Vol] 2.0 mg/dL Normal 1.8-2.4 [facility] Comment on above: Performed By: #### H STROPN, CMP, BNP, MG #### [facility] [address] [place] [address] [address] Linda Park PROF 14(COMP METB)on 023 Albumin [Mass/Vol] 3.7 g/dL Normal 3.4-5.0 [facility] Comment on above: Performed By: #### H STROPN, CMP, BNP, MG #### [facility] [address] [place] [address] Dr. Linda Park Albumin/Globulin [Mass ratio] 1.1 {ratio} Normal [facility] Comment on above: Performed By: #### H STROPN, CMP, BNP, MG #### [facility] [address] [place] [address] Dr. Linda Park ALP [Catalytic activity/Vol] 84 U/L Normal 46-116 [facility] Comment on above: Performed By: #### H STROPN, CMP, BNP, MG #### [facility] [address] [place] [address] Dr. Linda Park ALT [Catalytic activity/Vol] 17 U/L Normal 14-59 [facility] Comment on above: Performed By: #### H STROPN, CMP, BNP, MG #### [facility] [address] [place] [address] Dr. Linda Park Anion gap [Moles/Vol] 10.8 mmol/L Normal [facility] Comment on above: Performed By: #### H STROPN, CMP, BNP, MG #### [facility] [address] [place] [address] Dr. Linda Park AST [Catalytic activity/Vol] 15 U/L Normal 15-37 [facility] Comment on above: Performed By: #### H STROPN, CMP, BNP, MG #### [facility] [address] [place] [address] Dr. Linda Park Bilirubin [Mass/Vol] 0.2 mg/dL Normal 0.2-1.0 [facility] Comment on above: Performed By: #### H STROPN, CMP, BNP, MG #### [facility] [address] [place] [address] [address] Linda Park Calcium [Mass/Vol] 9.1 mg/dL Normal 8.5-10.1 [facility] Comment on above: Performed By: #### H STROPN, CMP, BNP, MG #### [facility] [address] [place] [address] [address] Linda Park Chloride [Moles/Vol] 104 mmol/L Normal 98-107 [facility] Comment on above: Performed By: #### H STROPN, CMP, BNP, MG #### [facility] [address] [place] [address] [address] Linda Park CO2 [Moles/Vol] 30.8 mmol/L Normal 21.0-32.0 [facility] Comment on above: Performed By: #### H STROPN, CMP, BNP, MG #### [facility] [address] [place] [address] [address] Linda Park Creatinine [Mass/Vol] 0.94 mg/dL Normal 0.55-1.02 [facility] Comment on above: Performed By: #### H STROPN, CMP, BNP, MG #### [facility] [address] [place] [address] [address] Linda Park EGFR-AF QATARI >60 Normal >=60 [facility] Comment on above: Performed By: #### H STROPN, CMP, BNP, MG #### [facility] [address] [place] [address] [address] Linda Park EGFR-NON AF QATARI 58 mL/min/1.73m2 Critically low >=60 [facility] Comment on above: Performed By: #### H STROPN, CMP, BNP, MG #### [facility] [address] [place] [address] [address] Linda Park Globulin (S) [Mass/Vol] 3.5 g/dL Normal [facility] Comment on above: Performed By: #### H STROPN, CMP, BNP, MG #### [facility] [address] [place] [address] [address] Linda Park Glucose [Mass/Vol] 78 mg/dL Normal 74-106 [facility] Comment on above: Performed By: #### H STROPN, CMP, BNP, MG #### [facility] [address] [place] [address] Dr. Linda Park Potassium [Moles/Vol] 4.6 mmol/L Normal 3.5-5.1 [facility] Comment on above: Performed By: #### H STROPN, CMP, BNP, MG #### [facility] [address] [place] [address] [address] Linda Park Protein [Mass/Vol] 7.2 g/dL Normal 6.4-8.2 [facility] Comment on above: Performed By: #### H STROPN, CMP, BNP, MG #### [facility] [address] [place] [address] Dr. Linda Park Sodium [Moles/Vol] 141 mmol/L Normal 136-145 [facility] Comment on above: Performed By: #### H STROPN, CMP, BNP, MG #### [facility] [address] [place] [address] Dr. Linda Park Urea nitrogen [Mass/Vol] 17.0 mg/dL Normal 7.0-18.0 [facility] Comment on above: Performed By: #### H STROPN, CMP, BNP, MG #### [facility] [address] [place] [address] Dr. Linda Park Urea nitrogen/Creatinin e [Mass ratio] 18.1 mg/mg Normal [facility] Comment on above: Performed By: #### H STROPN, CMP, BNP, MG #### [facility] [address] [place] [address] Dr. Linda Park TROPONIN, HIGH SENSITIVITYon 11-05-2022 HSTROP 9.2 pg/mL Normal 4.0-51.3 [facility] Comment on above: Result Comment: CUT- OFF POINTS HAVE BEEN ESTABLISHED BASED ON THE FOURTH UNIVERSAL DEFINITIONS OF MYOCARDIAL INFARCTION. THE UPPER REFERENCE LIMIT (URL) OF TROPONIN, DEFINED THE 99TH PERCENTILE OF cTnI DISTRIBUTION IN A REFERENCE POPULATION, HAS BEEN CONFIRMED THE DECISION THRESHOLD FOR SC DIAGNOSIS. Performed By: #### H STROPN, CMP, BNP, MG #### [facility] [address] [place], [place] [address] Dr. Linda Park XR CHEST 2 Von [...] TERRENCE ALBERTO Date: 2022-11-05 18:32 Normal [facility] HEMOGRAM AND PLATELon 2022 Hematocrit (Bld) [Volume fraction] 27.8 % Critically low 36.0-48.0 [facility] Comment on above: Performed By: #### H STROPN, CMP, BNP, MG #### [facility] [address] [place] [address] [address] Linda Park Hemoglobin (Bld) [Mass/Vol] 8.8 g/dL Critically low 12.0-16.0 [facility] Comment on above: Performed By: #### H STROPN, CMP, BNP, MG #### [facility] [address] [place], [place] [address] Dr. Linda Park MCH (RBC) [Entitic mass] 29.0 pg Normal 26.7-34.0 [facility] Comment on above: Performed By: #### H STROPN, CMP, BNP, MG #### [facility] [address] [place] [address] [address] Linda Park MCHC (RBC) [Mass/Vol] 31.7 g/dL Normal 29.9-35.2 [facility] Comment on above: Performed By: #### H STROPN, CMP, BNP, MG #### [facility] [address] [place] [address] [address] Linda Park MCV (RBC) [Entitic vol] 91.7 fL Normal 81.0-99.0 [facility] Comment on above: Performed By: #### H STROPN, CMP, BNP, MG #### [facility] [address] [place] [address] [address] Linda Park PLT 217 103/ul Normal 150-450 [facility] Comment on above: Performed By: #### H STROPN, CMP, BNP, MG #### [facility] [address] [place] [address] Dr. Linda Park RBC 3.03 106/ul Critically low 4.20-5.40 [facility] Comment on above: Performed By: #### H STROPN, CMP, BNP, MG #### [facility] [address] [place] [address] [address] Linda Park WBC 6.4 103/ul Normal 4.0-11.0 [facility] Comment on above: Performed By: #### H STROPN, CMP, BNP, MG #### [facility] [address] [place] [address] Dr. Linda Park LIPID PROFILEon 08-24-2022 CHOL-HDL RATIO NORM SEE BELOW Normal [facility] Comment on above: Result Comment: 3.3 - 4.4 LOW RISK 4.4 - 7.1 AVERAGE RISK 7.1 - 11.0 MODERATE RISK >11.0 HIGH RISK Performed By: #### H STROPN, CMP, BNP, MG #### [facility] [address] [place] [address] [address] Linda Park Cholesterol [Mass/Vol] 166 mg/dL Normal <=200 [facility] Comment on above: Performed By: #### H STROPN, CMP, BNP, MG #### [facility] [address] [place] [address] [address] Linda Park Cholesterol in HDL [Mass/Vol] 54 mg/dL Normal 40-60 [facility] Comment on above: Performed By: #### H STROPN, CMP, BNP, MG #### [facility] [address] [place] [address] [address] Linda Park Cholesterol in LDL [Mass/Vol] 70.8 mg/dL Normal [facility] Comment on above: Performed By: #### H STROPN, CMP, BNP, MG #### [facility] [address] [place] [address] [address] Linda Park Cholesterol.total/ Cholesterol in HDL [Mass ratio] 3.1 {ratio} Normal [facility] Comment on above: Performed By: #### H STROPN, CMP, BNP, MG #### [facility] [address] [place] [address] [address] Linda Park HDL NORMAL > or = 60 mg/dl - LO W CARDIOVASCULAR RISK <40 mg/dl - HIGH CARDIOVASCULAR RISK Normal [facility] Comment on above: Performed By: #### H STROPN, CMP, BNP, MG #### [facility] [address] [place] [address] [address] Linda Park LDL CALC NORMAL SEE BELOW Normal [facility] Comment on above: Result Comment: <100 mg/dl OPTIMAL 100 - 129 mg/dl NEAR OR ABOVE OPTIMAL 130 - 159 mg/dl BORDERLINE HIGH 160 - 189 mg/dl HIGH >190 mg/dl VERY HIGH Performed By: #### H STROPN, CMP, BNP, MG #### [facility] [address] [place] [address] [address] Linda Park Triglyceride [Mass/Vol] 206 mg/dL Critically high <=150 [facility] Comment on above: Performed By: #### H STROPN, CMP, BNP, MG #### [facility] [address] [place] [address] [address] Linda Park VLDL CALC 41.2 mg/dL Normal [facility] Comment on above: Performed By: #### H STROPN, CMP, BNP, MG #### [facility] [address] [place] [address] Dr. Linda Park PROF 14(COMP METB)on 023 Albumin [Mass/Vol] 3.7 g/dL Normal 3.4-5.0 [facility] Comment on above: Performed By: #### H STROPN, CMP, BNP, MG #### [facility] [address] [place] [address] Dr. Linda Park Albumin/Globulin [Mass ratio] 1.1 {ratio} Normal [facility] Comment on above: Performed By: #### H STROPN, CMP, BNP, MG #### [facility] [address] [place] [address] Dr. Linda Park ALP [Catalytic activity/Vol] 84 U/L Normal 46-116 [facility] Comment on above: Performed By: #### H STROPN, CMP, BNP, MG #### [facility] [address] [place] [address] Dr. Linda Park ALT [Catalytic activity/Vol] 17 U/L Normal 14-59 [facility] Comment on above: Performed By: #### H STROPN, CMP, BNP, MG #### [facility] [address] [place] [address] Dr. Linda Park Anion gap [Moles/Vol] 11.8 mmol/L Normal [facility] Comment on above: Performed By: #### H STROPN, CMP, BNP, MG #### [facility] [address] [place] [address] Dr. Linda Park AST [Catalytic activity/Vol] 19 U/L Normal 15-37 [facility] Comment on above: Performed By: #### H STROPN, CMP, BNP, MG #### [facility] [address] [place] [address] Dr. Linda Park Bilirubin [Mass/Vol] 0.4 mg/dL Normal 0.2-1.0 [facility] Comment on above: Performed By: #### H STROPN, CMP, BNP, MG #### [facility] [address] [place] [address] Dr. Linda Park Calcium [Mass/Vol] 9.5 mg/dL Normal 8.5-10.1 [facility] Comment on above: Performed By: #### H STROPN, CMP, BNP, MG #### [facility] [address] [place] [address] [address] Linda Park Chloride [Moles/Vol] 104 mmol/L Normal 98-107 [facility] Comment on above: Performed By: #### H STROPN, CMP, BNP, MG #### [facility] [address] [place] [address] [address] Linda Park CO2 [Moles/Vol] 28.6 mmol/L Normal 21.0-32.0 [facility] Comment on above: Performed By: #### H STROPN, CMP, BNP, MG #### [facility] [address] [place] [address] [address] Linda Park Creatinine [Mass/Vol] 0.87 mg/dL Normal 0.55-1.02 [facility] Comment on above: Performed By: #### H STROPN, CMP, BNP, MG #### [facility] [address] [address] [address] Linda Park EGFR-AF QATARI >60 Normal >=60 [facility] Comment on above: Performed By: #### H STROPN, CMP, BNP, MG #### [facility] [address] [address] [address] Linda Park EGFR-NON AF QATARI >60 Normal >=60 [facility] Comment on above: Performed By: #### H STROPN, CMP, BNP, MG #### [facility] [address] [address] [address] Linda Park Globulin (S) [Mass/Vol] 3.3 g/dL Normal [facility] Comment on above: Performed By: #### H STROPN, CMP, BNP, MG #### [facility] [address] [address] [address] Linda Park Glucose [Mass/Vol] 95 mg/dL Normal 74-106 [facility] Comment on above: Performed By: #### H STROPN, CMP, BNP, MG #### [facility] [address] [address] [address] Linda Park Potassium [Moles/Vol] 4.4 mmol/L Normal 3.5-5.1 [facility] Comment on above: Performed By: #### H STROPN, CMP, BNP, MG #### [facility] [address] [address] [address] Linda Park Protein [Mass/Vol] 7.0 g/dL Normal 6.4-8.2 [facility] Comment on above: Performed By: #### H STROPN, CMP, BNP, MG #### [facility] [address] [address] [address] Linda Park Sodium [Moles/Vol] 140 mmol/L Normal 136-145 [facility] Comment on above: Performed By: #### H STROPN, CMP, BNP, MG #### [facility] [address] [place] [address] Dr. Linda Park Urea nitrogen [Mass/Vol] 14.0 mg/dL Normal 7.0-18.0 [facility] Comment on above: Performed By: #### H STROPN, CMP, BNP, MG #### [facility] [address] [place] [address] Dr. Linda Park Urea nitrogen/Creatinin e [Mass ratio] 16.1 mg/mg Normal [facility] Comment on above: Performed By: #### H STROPN, CMP, BNP, MG #### [facility] [address] [place] [address] Dr. Linda Park XR LSPINE MIN 4 VIEWS 04-14 XR LSPINE MIN 4 VIEWS EXAMINATION: [...] by: JAMIR SANCHEZ Date: 2022-04-30 06:55 Normal [facility] MG MAMM SCREEN 3D GONZALEZ CADon 03-05-2022 MG MAMM SCREEN 3D GONZALEZ CAD Patient: ELLI LINDSEY Exam Date: 03/05/2022 : 1945 Gender:F Ordering : [place] [facility] [facility] [place]mission #: [id number] Family : DR. SAMINA TA M.D. Order #: [id number] CLICK HERE TO VIEW EXAM RADIOLOGY REPORT [...] unknown cancer at age 72. LOCATION: [facility] BREAST COMPOSITION: Scattered areas fibroglandular density. FINDINGS: [...] Arndt MD on 03/05/2022 at 12:09 Normal [facility] Basic Metabolic Profon 09-30 (cont.) Normal [facility] Comment on above: Result Comment: Aver age GFR for 70 or more years old: 75 mL/min/1.73sq mChronic Kidney Disease: <60 mL/min/1.73sq mKidney failure: <15 mL/min/1.73sq meGFR calculated using average adult body mass. Additional eGFR calculator available at:http://www.GenoSpace.Stand Offer/multiple_crcl_2012.htmPerformed at [facility] [address] [place] [address] Performed By: #### C DP, ALCB, BMP, TSH ####[address] [place] [address] Anion gap 13 mmol/L Normal 9-17 [facility] Comment on above: Performed By: #### C DP, ALCB, BMP, TSH ####[address] [place] [address] BUN/CRE Ratio 26 High 9-20 [facility] Comment on above: Performed By: #### C DP, ALCB, BMP, TSH ####[address] [address] Calcium 9.4 mg/dL Normal 8.6-10.4 [facility] Comment on above: Performed By: #### C DP, ALCB, BMP, TSH ####[address] [address] Chloride 101 mmol/L Normal 98-107 [facility] Comment on above: Performed By: #### C DP, ALCB, BMP, TSH ####[address] [address] CO2 25 mmol/L Normal 20-31 [facility] Comment on above: Performed By: #### C DP, ALCB, BMP, TSH ####[address] [address] Creatinine 0.66 mg/dL Normal 0.50-0.90 [facility] Comment on above: Performed By: #### C DP, ALCB, BMP, TSH ####[address] [address] eGFR (non-black) mL/min/{1.73_m2} Normal >60 [facility] Comment on above: Performed By: #### C DP, ALCB, BMP, TSH ####[address] [address] Glucose mass conc 92 mg/dL Normal 70-99 [facility] Comment on above: Performed By: #### C DP, ALCB, BMP, TSH ####[address] [address] Potassium molar conc 4.1 mmol/L Normal 3.7-5.3 [facility] Comment on above: Performed By: #### C DP, ALCB, BMP, TSH ####[address] [address] Sodium 139 mmol/L Normal 135-144 [facility] Comment on above: Performed By: #### C DP, ALCB, BMP, TSH ####[address] [address] Urea nitrogen 17 mg/dL Normal 8-23 [facility] Comment on above: Performed By: #### C DP, ALCB, BMP, TSH ####[address] [address] Staging: NOT REPORTED Normal [facility] Comment on above: Performed By: #### C DP, ALCB, BMP, TSH ####[address] [address] CBC with Diffon 09-30-2017 Abs. Basophil 0.00 k/uL Normal 0.0-0.2 [facility] Comment on above: Result Comment: Perf ormed at [facility] [address] [place] [address] Performed By: #### C DP, ALCB, BMP, TSH ####[address] [place] [address] Abs.Neutrophil (Seg) 4.30 k/uL Normal 1.8-7.7 [facility] Comment on above: Performed By: #### C DP, ALCB, BMP, TSH ####[address] [address] Basophils/100 WBC Auto (Bld) 1 % Normal 0-2 [facility] Comment on above: Performed By: #### C DP, ALCB, BMP, TSH ####[address] [address] Eosinophils 0.10 10*3/uL Normal 0.0-0.4 [facility] Comment on above: Performed By: #### C DP, ALCB, BMP, TSH ####[address] [address] Eosinophils/100 leukocytes 3 % Normal 1-4 [facility] Comment on above: Performed By: #### C DP, ALCB, BMP, TSH ####[address] [address] Erythrocyte distribution width Auto Ratio (RBC) 13.6 % Normal 11.5-14.5 [facility] Comment on above: Performed By: #### C DP, ALCB, BMP, TSH ####[address] [address] Erythrocytes (RBC) 3.66 10*6/uL Low 4.0-5.2 [facility] Comment on above: Performed By: #### C DP, ALCB, BMP, TSH ####[address] [address] Hematocrit (HCT) 35.9 % Low 36-46 [facility] Comment on above: Performed By: #### C DP, ALCB, BMP, TSH ####[address] [address] Hemoglobin mass conc (Bld) 12.1 g/dL Normal 12.0-16.0 [facility] Comment on above: Performed By: #### C DP, ALCB, BMP, TSH ####[address] [address] Lymphocytes 1.00 10*3/uL Normal 1.0-4.8 [facility] Comment on above: Performed By: #### C DP, ALCB, BMP, TSH ####[address] [address] Lymphocytes/100 leukocytes 17 % Low 24-44 [facility] Comment on above: Performed By: #### C DP, ALCB, BMP, TSH ####[address] [address] MCH 33.1 pg Normal 26-34 [facility] Comment on above: Performed By: #### C DP, ALCB, BMP, TSH ####[address] [address] MCHC mass conc (RBC) 33.7 g/dL Normal 31-37 [facility] Comment on above: Performed By: #### C DP, ALCB, BMP, TSH ####[place] [address] MCV 98.1 fL Normal 80-100 [facility] Comment on above: Performed By: #### C DP, ALCB, BMP, TSH ####[address] [address] Monocytes 0.30 10*3/uL Normal 0.2-0.8 [facility] Comment on above: Performed By: #### C DP, ALCB, BMP, TSH ####[address] [place] [address] Monocytes/100 leukocytes 6 % Normal 1-7 [facility] Comment on above: Performed By: #### C DP, ALCB, BMP, TSH ####[address] [address] Neutrophil (Seg) 73 % High 36-66 [facility] Comment on above: Performed By: #### C DP, ALCB, BMP, TSH ####[address] [address] Platelet mean volume (PMV) 7.9 fL Normal 6.0-12.0 [facility] Comment on above: Performed By: #### C DP, ALCB, BMP, TSH ####[address] [address] Platelets 206 10*3/uL Normal 130-400 [facility] Comment on above: Performed By: #### C DP, ALCB, BMP, TSH ####[address] [address] WBC (Leukocytes) 5.8 10*3/uL Normal 3.5-11.0 [facility] Comment on above: Performed By: #### C DP, ALCB, BMP, TSH ####[address] [address] Auto Diff Performed NOT REPORTED Normal [facility] Comment on above: Performed By: #### C DP, ALCB, BMP, TSH ####[address] [address] Erythrocyte morphology NOT REPORTED Normal [facility] Comment on above: Performed By: #### C DP, ALCB, BMP, TSH ####[address] [address] Erythrocytes (RBC) NOT REPORTED Normal [facility] Comment on above: Performed By: #### C DP, ALCB, BMP, TSH ####[address] [address] Granulocytes/100 WBC (Bld) NOT REPORTED Normal 0.00-0.30 [facility] Comment on above: Performed By: #### C DP, ALCB, BMP, TSH ####[address] [address] Immature granulocytes #/vol (Bld) NOT REPORTED Normal 0 [facility] Comment on above: Performed By: #### C DP, ALCB, BMP, TSH ####[place] [address] Platelets NOT REPORTED Normal [facility] Comment on above: Performed By: #### C DP, ALCB, BMP, TSH ####[address] [address] WBC Morphology NOT REPORTED Normal [facility] Comment on above: Performed By: #### C DP, ALCB, BMP, TSH ####[place] [address] Drug Scr, Abuse, Uron 2017 Amphetamine(s),Ur Negative Normal NEG [facility] Comment on above: Result Comment: (Pos itive cutoff 1000 ng/mL) Performed By: #### D AU ####[address] [address] Barbiturate(s),Ur Negative Normal NEG [facility] Comment on above: Result Comment: (Pos itive cutoff 200 ng/mL) Performed By: #### D AU ####[address] [address] Base excess Negative Normal NEG [facility] Comment on above: Result Comment: (Pos itive cutoff 300 ng/mL) Performed By: #### D AU ####[address] [address] Benzodiazepine(s) Positive Abnormal NEG [facility] Comment on above: Result Comment: (Pos itive cutoff 200 ng/mL) Performed By: #### D AU ####[address] [address] Cannabinoid(s),Ur Negative Normal NEG [facility] Comment on above: Result Comment: (Pos itive cutoff 50 ng/mL) Performed By: #### D AU ####[address] [address] Interpretive Info Assay provides medic al screening only. The absence of expected drug(s) and/or Normal [facility] Comment on above: Result Comment: meta bolite(s) may indicate diluted or adulterated urine, limitations of testing or timing of collection.Testing for legal purposes should be confirmed by another method. To request confirmation of test result, please call the lab within 7 days of sample submission.Performed at [facility] [address] [place] [address] Performed By: #### D AU ####[address] [address] Opiate(s), Ur Negative Normal NEG [facility] Comment on above: Result Comment: (Pos itive cutoff 300 ng/mL) Performed By: #### D AU ####[address] [address] Oxycodone, Urine Positive Abnormal NEG [facility] Comment on above: Result Comment: (Pos itive cutoff 100 ng/mL) Performed By: #### D AU ####[facility] [place], [place] [address] [address] Phencyclidine, Ur Negative Normal NEG [facility] Comment on above: Result Comment: (Pos itive cutoff 25 ng/mL) Performed By: #### D AU ####[facility] [place] [address].[place] [address] Urine, methadone presence Negative Normal NEG [facility] Comment on above: Result Comment: (Pos itive cutoff 300 ng/mL) Performed By: #### D AU ####[facility] [place] [address].[place] [address] Buprenorphrine, Ur NOT REPORTED Normal NEG [facility] Comment on above: Performed By: #### D AU ####[facility] [place] [address].[place] [address] MDMA, Urine NOT REPORTED Normal NEG [facility] Comment on above: Performed By: #### D AU ####[facility] [place] [address].[place] [address] Methamphetamine, Ur NOT REPORTED Normal NEG [facility] Comment on above: Performed By: #### D AU ####[facility] [place] [address].[place] [address] Propoxyphene,Urine NOT REPORTED Normal NEG [facility] Comment on above: Performed By: #### D AU ####[facility] [place], [place] [address]ia [facility] [place] [address] Urine, tricyclic antidepressants NOT REPORTED Normal NEG [facility] Comment on above: Performed By: #### D AU ####[facility] [place] [address] Ethanol Alcoholon 09-30-2017 Ethanol mg/dL Normal <10 [facility] Comment on above: Performed By: #### C DP, ALCB, BMP, TSH ####[address] [address] Ethanol percent <0.010 Normal [facility] Comment on above: Result Comment: Perf ormed at [facility] [address] [place] [address] Performed By: #### C DP, ALCB, BMP, TSH ####[address] [address] Thyroid Stim. Horm.on 2017 Thyroid stimulating hormone (TSH) 0.87 m[IU]/L Normal 0.30-5.00 [facility] Comment on above: Result Comment: Perf ormed at [facility] [address] [place] [address] Performed By: #### C DP, ALCB, BMP, TSH ####[address] [address] [facility] ERALon 04-27-2017 [facility] This is a summary [...] SurgeryPrior right lumpectomy and radiation therapy in 2014. Patient states September2016 drainage of the seroma [...] sent to the patient regarding the results.[employer] recommends annual mammograms for women 40years and older.Interpreted by:TIM Robinigned by:Elli Aparicio MD04/27/17CC Recipients:Mark Francois MD - In [facility] - FaxFinal result Normal [facility] Vital Signs Date Time Vital Sign Value Performing Clinician Facility 07-06-2024 11:21-0500 Body height 139.7 cm Baltazar Coronado DPM Work Phone: [facility] 07-06-2024 11:21-0500 Respiratory rate 16 /min Baltazar Coronado DPLonnie Work Phone: [facility] 05-08-2024 12:37-0500 Body height 152.4 cm Ken Jones MD Work Phone: [facility] 05-08-2024 12:37-0500 Body mass index (BMI) [Ratio] 36.29 kg/m2 Ken Jones MD Work Phone: [facility] 05-08-2024 12:37-0500 Body weight 84.28 kg Ken Jones MD Work Phone: [facility] 05-08-2024 12:37-0500 Diastolic blood pressure 98 mm[Hg] Ken Jones MD Work Phone: [facility] 05-08-2024 12:37-0500 Heart rate 73 /min Ken Jones MD Work Phone: [facility] 05-08-2024 12:37-0500 SaO2% (BldA) [Mass fraction] 97 % Ken Jones MD Work Phone: [facility] 05-08-2024 12:37-0500 Systolic blood pressure 144 mm[Hg] Ken Jones MD Work Phone: [facility] 02-07-2024 11:10-0400 Diastolic blood pressure 66 mm[Hg] CAROLINE Lua Gustavo Work Phone: [facility] 02-07-2024 11:10-0400 Heart rate 65 /min CAROLINE Lua Gustavo Work Phone: [facility] 02-07-2024 11:10-0400 Respiratory rate 16 /min ACCOUNT DEVELOPMENT SPECIALIST Chanell Gustavo Work Phone: [facility] 02-07-2024 11:10-0400 SaO2% (BldA) [Mass fraction] 98 % CAROLINE Lua Gustavo Work Phone: [facility] 02-07-2024 11:10-0400 Systolic blood pressure 127 mm[Hg] ACCOUNT DEVELOPMENT SPECIALIST Chanell Gustavo Work Phone: [facility] 02-07-2024 09:19-0400 Body height 154.94 cm ACCOUNT DEVELOPMENT SPECIALIST Chanell Gustavo Work Phone: [facility] 02-07-2024 09:19-0400 Body weight 81.19 kg ACCOUNT DEVELOPMENT SPECIALISTJose Lua Gustavo Work Phone: [facility] Encounters Encounter Date Encounter Type Care Provider Facility Start: 07-06-2024 End: 07-06-2024 Guillermoboo dontrell Coronado DPM Work Phone: [facility] Start: 07-06-2024 End: 07-06-2024 Bamboo flowsheet Baltazar Coronado DPM Work Phone: [facility] Start: 07-06-2024 End: 07-06-2024 Office outpatient new 30 minutes Baltazar Coronado DPM Work Phone: [facility] Comment on above: Metatarsal deformity , right (Primary Dx); Pain due to onychomycosis of toenails of both feet; Metatarsal deformity, left Start: 07-06-2024 End: 07-06-2024 ambulatory BALTAZAR CORONADO Not Available Start: 05-08-2024 End: 05-08-2024 Office outpatient visit 25 minutes Ken Jones MD Work Phone: [facility] Comment on above: 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 (Primary Dx); Pulmonary hypertension ([facility]); Benign essential hypertension; Dyslipidemia; Dyspnea on exertion Start: 05-08-2024 End: 05-08-2024 ambulatory KENTR JONES [facility] Start: 05-05-2024 End: 05-05-2024 Telephone encounter Marsha Layne CMA [facility] Start: 04-12-2024 End: 04-26-2024 Telephone encounter Kimberlee Garza [facility] Work Phone: [facility] Comment on above: Hearing Aid Problem Start: 03-30-2024 End: 03-31-2024 Refill Denise Araiza RN [facility] Comment on above: Med Refill Start: 02-07-2024 End: 02-07-2024 Admission to same day surgery center CAROLINE Chen Work Phone: [facility] [place] Work Phone: Start: 02-07-2024 End: 02-07-2024 ambulatory CAROLINE Chen Work Phone: [facility] Work Phone: Start: 01-26-2024 End: 01-26-2024 ambulatory BOONE JHA [facility] Start: 07-12-2023 Orders Only Shukri Jeong MD Work Phone: [facility] Start: 11-05-2022 End: 11-06-2022 ambulatory ADI SHAMMO Facility:[facility] Start: 09-24-2022 End: 09-25-2022 ambulatory DAINA SANDY . Facility:[facility] Start: 08-25-2022 Encounter for genera l adult medical examination without abnormal findings ADICARLOS FIGUEROA [facility] Start: 08-25-2022 Encounter for preprocedural cardiovascular examination DR BEAU WILDER . [facility] Start: 08-25-2022 End: 08-25-[address] BEAU WILDER . Facility:[facility] Start: 08-24-2022 End: 08-25-2022 Encounter for preprocedural cardiovascular examination DR BEAU WILDER . Facility:[facility] Start: 08-24-2022 End: 08-25-[address] BEAU WILDER . Facility:[facility] Start: 08-24-2022 End: 08-25-2022 Encounter for general adult medical examination without abnormal findings ADICARLOS FIGUEROA Facility:[facility] Start: 08-20-2022 End: 08-21-2022 ambulatory [...] 09-30-2017 Emergency department patient visit MEGHANN TA [facility] Start: 07-20-2017 Patient encounter procedure [facility]ri Jeong [facility] Start: 04-27-2017 End: 04-28-2017 Ambulatory KENZIE ALMONTE [facility] Procedures Date Procedure Procedure Detail Performing [...] Td Vaccines (2 - Td or Tdap) [facility] Start: 05-08-2025 Tobacco Screening Tobacco Screening [facility] Start: 09-14-2024 End: 09-14-2024 Patient encounter procedure 09/14/2024 11:40 AM EDT Procedure Visit [facility] [address] [facility] [address] [place] [address] Baltazar Coronado, DPLonnie [address] [facility] [address] [place] [address] [facility] Start: 07-06-2024 End: 07-06-2024 Patient encounter procedure [facility] Comment on above: Arrived Start: 06-16-2024 COVID-19 Vaccine () COVID-19 Vaccine () [facility] Start: 05-15-2024 End: 05-08-2025 Basic metabolic 2000 panel - Serum or Plasma Basic Metabolic Panel Lab Routine Coronary artery disease involving choctaw coronary artery of choctaw heart without angina pectoris Pulmonary hypertension ([facility]) Benign essential hypertension Dyslipidemia Dyspnea on exertion Expected: 05/15/2024, Expires: 05/08/2025 [facility] Work Phone: Comment on above: Expected: 05/15/2024 , Expires: 05/08/2025 Start: 05-09-2024 End: 05-09-2024 Patient encounter procedure 05/09/2024 10:00 AM EST Office Visit [facility] [address] [place] [address] Ken Jones MD [address] [place] [address] [facility] Start: 05-08-2024 End: 05-08-2024 Patient encounter procedure 05/08/2024 12:45 PM EST Office Visit [facility] [address] [place] [address] Ken Jones MD [address] [place] [address] [facility] Start: 03-02-2024 Adult BMI Screening Adult BMI Screen ing [facility] Start: 03-02-2024 Tobacco Screening Tobacco Screening [facility] Start: 02-13-2024 COVID-19 Vaccine ( season) COVID-19 Vaccine ( season) [facility] Start: 02-13-2024 COVID-19 Vaccine ( season) COVID-19 Vaccine ( season) [facility] Start: 02-13-2024 Influenza vaccination Influenza Vacc ine [facility] Start: 02-07-2024 [facility] Start: 02-07-2024 Bone marrow sampling [facility] Start: 06-01-2023 Adult BMI Follow Up Plan Adult BMI Follow Up Plan [facility] Start: 02-12-2023 COVID-19 Vaccine ( season) COVID-19 Vaccine ( season) [facility] Start: 02-12-2023 Influenza vaccination Influenza Vacc ine [facility] Start: 08-18-2022 Depression Screening Depression Scre ening [facility] Start: 02-18-2022 Fall Risk Screening Fall Risk Screen ing [facility] [employer] [facility] Start: 02-18-2022 Medicare Annual Wellness Visit Medicare Annual Wellness Visit [facility] [employer] Start: 2010 Fall Risk Screening Fall Risk Screen ing [facility] End: 03-30-2025 Basic metabolic 2000 panel - Serum or Plasma Basic Metabolic Panel Lab Routine Coronary artery disease involving choctaw coronary artery of choctaw heart without angina pectoris 1 Occurrences starting 03/31/2024 until 03/30/2025 [facility] Work Phone: Comment on above: 1 Occurrences starti ng 03/31/2024 until 03/30/2025 End: 03-30-2025 Magnesium [Mass/volume] in Serum or Plasma Magnesium Lab Routine Coronary artery disease involving choctaw coronary artery of choctaw heart without angina pectoris 1 Occurrences starting 03/31/2024 until 03/30/2025 [facility] Comment on above: 1 Occurrences starti ng 03/31/2024 until 03/30/2025 Patient Education On License Of [facility] Bone Marrow Aspiration or Biopsy Know your Meds [facility] Work Phone: Immunizations Immunization Date Immunization Notes Care Provider Fa cili 03-04-2023 influenza virus vacc ine, unspecified formulation Denise Araiza RN [facility] 03-04-2022 influenza, injectabl e, quadrivalent, preservative free Shukri Jeong MD Work Phone: [facility] 03-04-2022 influenza virus vacc ine, unspecified formulation Shukri Jeong MD Work Phone: [facility] 04-04-2021 influenza, injectabl e, quadrivalent, contains preservative Shukri Jeong MD Work Phone: [facility] 03-13-2021 COVID-19, mRNA, LNP- S, PF, 30mcg/0.3mL Dose Shukri Jeong MD Work Phone: [facility] 08-13-2020 COVID-19, mRNA, LNP- S, PF, 30mcg/0.3mL Dose Shukri Jeong MD Work Phone: [facility] 07-22-2020 COVID-19, mRNA, LNP- S, PF, 30mcg/0.3mL Dose Shukri Jeong MD Work Phone: [facility] 02-06-2020 influenza, injectabl e, quadrivalent, preservative free Shukri Jeong MD Work Phone: [facility] 04-06-2019 zoster vaccine recombinant Shukri Jeong MD Work Phone: [facility] 03-09-2019 influenza, high dose seasonal, preservative-free Shukri Jeong MD Work Phone: [facility] 09-01-2018 zoster vaccine recombinant Shukri Jeong MD Work Phone: [facility] 02-17-2018 Seasonal trivalent influenza vaccine, adjuvanted, preservative free Shukri Jeong MD Work Phone: [facility] 08-26-2017 pneumococcal polysaccharide vaccine, 23 valent Shukri Jeong MD Work Phone: [facility] 02-10-2017 influenza virus vacc ine, unspecified formulation Shukri Jeong MD Work Phone: [facility] 02-20-2016 influenza, seasonal, injectable, preservative free Shukri Jeong MD Work Phone: [facility] 10-09-2015 pneumococcal conjuga te vaccine, 13 valent Shukri Jeong MD Work Phone: [facility] 03-08-2015 Influenza TIV (IM) Shukri soto MD Work Phone: [facility] 07-07-2013 pneumococcal polysaccharide vaccine, 23 diaz Jeong MD Work Phone: [phone] 06-14-2007 pneumococcal polysaccharide vaccine, 23 diaz Jeong MD Work Phone: [phone] 02-26-1999 pneumococcal polysaccharide vaccine, 23 diaz Jeong MD Work Phone: [phone] Payers Date Payer Category Payer Medicare (Managed Care) [id number]. [id number] 2024 Self-pay 2024 Private Health Insurance [id number] 2023 Medicare [id number] 2022 Unknown BCBS [facility] HMO/PPO/TRUST [id number] 2022-[facility] [phone] [address] [place] [address] [id number] 2014 Medicare [id number] 2010 Medicare [id number] 1959 Medicare [id number] 1959 Medicare [id number] 1959 Unknown [id number] 1945 Unknown [id number] 2.16.840.1.060874.3.579.2. 593 1945 Unknown [id number] 2.16.840.1.042825.3.579.2. 593 1945 Unknown [id number] 2.16.840.1.287908.3.579.2. 593 1945 Unknown [id number] 2.16.840.1.715727.3.579.2. 593 1945 Unknown [id number] 2.16.840.1.551523.3.579.2. 593 1945 Unknown [id number] 2.16.840.1.398931.3.579.2. 593 1945 Unknown [id number] 2.16.840.1.797182.3.579.2. 593 1945 Unknown [id number] 2.16.840.1.945862.3.579.2. 593 1945 Unknown [id number] 2.16.840.1.565754.3.579.2. 593 1945 Unknown [id number] 2.16.840.1.675855.3.579.2. 593 1945 Unknown [id number] 2.16.840.1.181526.3.579.2. 593 1945 Unknown [id number] 2.16.840.1.036277.3.579.2. 593 1945 Unknown [id number] 2.16.840.1.854220.3.579.2. 1286 1945 Unknown [id number] 2.16.840.1.862965.3.579.2. 1286 1945 Unknown [id number] 2.16.840.1.930306.3.579.2. 1259 Unknown [id number] 2.16.840.1.969582.3.579.2. 531 Social History Date Type Detail Facility Start: 06-01-2022 End: 02-07-2024 Tobacco smoking status NHIS Never smoked tobacco (finding) [facility] Start: 1945 Sex Assigned At Female [facility] Start: 06-26-2020 End: 02-22-2023 [facility] Start: 06-26-2020 End: 02-22-2023 Tobacco use panel [facility] Start: 1945 Sex assigned at Not on file [facility] Start: 06-01-2022 Tobacco use and exposure Smoke less tobacco non-user [facility] Start: 03-02-2023 End: 05-08-2024 Alcohol intake Current drinker of alcohol (finding) [facility] Frequency of Communi cation with Friends and Family Three times a week [facility] Start: 03-09-2019 Education 14 [facility] Start: 01-15-2015 Sex Female (finding) [facility] Clinical Notes 06-23-2022 to 07-06-2024 Baltazar Coronado, TASHA - 07/06/2024 11:30 AM Leandro Jones MD - 05/08/2024 12:45 PM ESTTelephone Encounter - Marsha Layne CMA - 05/05/2024 9:34 AM EST Note Date & Type Note Facility 07-06-2024 History of Presen t illness Narrative Patient: Mariela Lindsey : 1945 PCP: No primary care provider on file. SUBJECTIVE This is a 78 y.o. female that presents today with a CC of elongated, thick nails. Pt states nails have been elongated and thick for many years and cause pain with ambulation in shoegear. Pt has tried previous treatment with minimal relief. Pt presents today for nail care and treatment. Patient also has history of some pain to her feet particularly in area of outside of her foot when shoe gear and has tried different shoes with some improvement but states she does have some aches from time to time and points to the 5th metatarsal head region bilaterally Allergies: Not on File Past Medical History: Past Medical History: Diagnosis Date Breast cancer ([facility]/HCC) Medications: No current outpatient medications on file. Social History: Social History Socioeconomic History Marital status: Spouse name: Not on file Number of children: Not on file Years of education: Not on file Highest education level: Not on file Occupational History Not on file Tobacco Use Smoking status: Never Smokeless tobacco: Not on file Substance and Sexual Activity Alcohol use: Not on file Drug use: Not on file Sexual activity: Not on file Other Topics Concern Not on file Social History Narrative Not on file Social Drivers of Health Financial Resource Strain: Low Risk (03/09/2019) Received from [employer] [facility] Overall Financial Resource Strain (CARDIA) Difficulty of Paying Living Expenses: Not hard at all Food Insecurity: No Food Insecurity (05/08/2024) [facility] Hunger Screening Within the past 12 months we worried whether our food would run out before we got money to buy more.: Never True Within the past 12 months the food we bought just didn't last and we didn't have money to get more.: Never True Transportation Needs: No Transportation Needs (03/09/2019) [facility] - Transportation Lack of Transportation (Medical): No Lack of Transportation (Non-Medical): No Physical Activity: Sufficiently Active (03/09/2019) Received from 24h00 Exercise Vital Sign Days of Exercise per Week: 7 days Minutes of Exercise per Session: 50 min Stress: Stress Concern Present (03/09/2019) Received from [facility] [employer] - Occupational Stress Questionnaire Feeling of Stress : To some extent Social Connections: Socially Integrated (03/09/2019) [facility] Social Connection and Isolation Panel [NHANES] Frequency of Communication with Friends and Family: Three times a week Frequency of Social Gatherings with Friends and Family: Three times a week Attends Sikh Services: More than 4 times per year Active Member of Clubs or Organizations: Yes Attends Club or Organization Meetings: 1 to 4 times per year Marital Status: Intimate Partner Violence: Not on file Housing Stability: Not on file ROS: Gastrointestinal: denies abdominal pain, ulcers, or changes in appetite or bowel habits Musculoskeletal: Positive generalized arthritis to joints and denies loss of strength. Positive history of degenerative disc disease in the past and right knee osteoarthritis Cardiovascular: denies CP, palpitations, irregular rhythms OBJECTIVE LE EXAM: DERM: Elongated thick yellow crumbly nails digits 1 through 10. Positive hair growth b/l feet. Slight rubor noted to bilateral lateral 5th metatarsal head regions VASC: Positive palpable pedal pulses bilaterally NEURO: Gross sensation intact to bilateral feet ORTHO: Positive pain on palpation to nails 1 through 10 Minimal pain on palpation to bilateral lateral 5th metatarsal head regions ASSESSMENT 1. Pain due to onychomycosis of toenails of both feet 2. Metatarsal deformity, left 3. Metatarsal deformity, right PLAN Discussed proper foot care with patient today. Debride nails in length and thickness digits 1 through 10 Discussed patient wearing wider shoes to accommodate her tailor bunion type deformities and patient states that she will continue to do so and if any issues contact Podiatry Baltazar Coronado DPM documented in this encounter [facility] 05-08-2024 History of Presen t illness Narrative Mariela Lindsey Date of visit: 05/08/2024 Date of : 1945 Age: 78 y.o. Patient Active Problem List Diagnosis Benign essential hypertension Chronic right-sided low back pain with right-sided sciatica Dyslipidemia Malignant neoplasm of female breast ([facility]) Temporomandibular joint disorder Pseudophakia Medicare annual wellness visit, subsequent Pain in both knees Severe obesity (BMI 35.0-39.9) with comorbidity ([facility]) Gastroesophageal reflux disease with esophagitis Thoracic outlet syndrome Depressive disorder Tension headache Sprain of right rotator cuff capsule Spinal stenosis of lumbar region Facet arthritis of lumbar region Scoliosis of lumbar spine Abnormal echocardiogram Pulmonary hypertension ([facility]) Allergies Allergen Reactions Hay Fever And Allergy [...] 0.5 tablets before bedtime. 90 tablet 0 imofhwkt-ytst-OT-calcium &mins (THERAGRAN-M) 9 mg iron-400 mcg tablet [...] Past Medical History: Diagnosis Date Breast cancer ([facility]) 2013 RT GERD (gastroesophageal reflux disease) Hyperlipidemia Hypertension Menopausal syndrome (hot flashes) No data recorded No data recorded No data recorded Past Surgical History: Procedure Laterality Date APPENDECTOMY BELPHAROPTOSIS REPAIR Bilateral BLEPHAROPLASTY W/ LASER BREAST BIOPSY BREAST LUMPECTOMY Right 2013 RADIATION AND CHEMO Cardiac catheterization- Cors + Right heart + LV gram/press 28074 N/A 02/08/2023 Performed by Abdiel Lemus MD at [facility] CARDIAC CATH LABS CATARACT EXTRACTION Bilateral SECTION [...] 50 min Stress: Stress Concern Present (03/09/2019) [employer] - Occupational Stress Questionnaire Feeling of Stress : To some extent Social Connections: Socially Integrated (03/09/2019) Social Connection and Isolation Panel [NHANES] Frequency of Communication with Friends and Family: Three times a week Frequency of Social Gatherings with Friends and Family: Three times a week Attends Sikh Services: More than 4 times per year [...] medications. IMPRESSIONS/PLAN 1. 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 Pulmonary hypertension (CMS-HCC) 3. Benign essential hypertension 4. Dyslipidemia 5. 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 PCP: STACY ZIMMERMANP Referring Physician: Adi Figueroa APRN-GRAPHIC DESIGN PROFESSOR [id number] [place] [address] documented in this encounter [facility] 05-05-2024 Miscellaneous Notes Called patient to remind them to bring their most current copy of their medication list with them to their appt. Patient verbalizes understanding. documented in this encounter [facility] 05-05-2024 Telephone encounter Note Called patient to remind them to bring their most current copy of their medication list with them to their appt. Patient verbalizes understanding. [facility] 04-25-2024 Telephone encounter Note Patient called. I tracked order and aids arrived today from [employer]. Told patient the aids could be sent to [facility] where she can pick them up. [facility] hours were reviewed. [facility] 04-25-2024 Miscellaneous Notes Patient called. I tracked order and aids arrived today from [employer]. Told patient the aids could be sent to [facility] where she can pick them up. [facility] hours were reviewed. Pt wants us to call her at [phone] when her aids are back from repair [...] back from [employer] documented in this encounter [facility] 04-17-2024 Telephone encounter Note Pt wants us to call her at [phone] when her aids are back from repair [facility] Work Phone: 04-12-2024 Telephone encounter Note Pt [...] her when aids are back from [employer] [facility] 03-30-2024 Miscellaneous Notes Last OV 03/02/23 Pt will call to make appt Last CMP 12/18/22 Orders placed for BMP and Mg.slm documented in this encounter [facility] 03-30-2024 Telephone encounter Note Last OV 03/02/23 Pt will call to make appt Last CMP 12/18/22 Orders placed for BMP and Mg.slm [facility] 09-24-2022 Note CONSULTATION CONSULTATION DATE: 09/24/2022 TO: [...] this infrequently. She is no longer on [place], since at least July. Her GERALDO on [...] our patients to inform us about any mugu-jla-exekzcu medications or herbal remedies/nutritional supplements/alternative remedies. 2. [...] options with their primary care provider. [facility] 08-20-2022 Note CONSULTATION CONSULTATION DATE: 08/20/2022 HISTORY [...] Medications include Celebrex 200 mg daily, multivitamin, [place] 5/325 daily p.r.n., Excedrin and baclofen 10 [...] L4, L5. She is to continue her [place] 5/325 daily p.r.n. and I highly encouraged her to use a heat rub and heat application once to twice daily. Patient agrees with this plan of care and will be brought back to the clinic thereafter. [facility] 07-23-2022 Note PAIN MANAGEMENT CONS ULTATION CONSULTATION [...] greatly aggravate her pain. Current medications include [place] 5/325 daily p.r.n., baclofen 10 mg q.h.s. [...] followed up in the office thereafter. [facility] 06-23-2022 Note CONSULTATION CONSULTATION DATE: 06/23/2022 CHIEF [...] the possibility of a neurosurgical consult at [facility]. The patient's PAST MEDICAL HISTORY / [...] PLAN: We will start the patient on [place] 5/325 one tablet p.o. daily. The patient [...] like to proceed. 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- Primary Pulmonary hypertension (CMS-HCC) Other chronic pulmonary heart diseases Benign essential hypertension Essential hypertension, benign Dyslipidemia Other and unspecified hyperlipidemia Dyspnea on exertion Other dyspnea and respiratory abnormality documented in this encounter [facility]Not on filedocumented in this encounter [facility]Not on filedocumented in this encounter [facility] System[facility]ructionsNot on filedocumented in this encounter [facility] Summary Purpose Family History Relationship Condition Age at Onset Recorded Date/T aleshia mother Myocardial infarction Unknown father Myocardial infarction Unknown Malignant neoplasm of prostate Unknown brother Myocardial infarction Unknown sister Leukemia Unknown brother Malignant neoplasm of prostate Unknown Advance Directives Advance Directive Response Recorded Date/ Time Advance Directives No January 26, 2024 4:21pm Documents on File Type Date Recorded 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 Maritza liang Living Will 10/11/2015 2:28 PM Chief Complaint and Reason for Visit Chief Complaint refractory anemia ev al for mds Additional Source Comments INFORMATION SOURCE (unrecogn ized section and content) DATE CREATED AUTHOR 12/02/2017 [facility] DATE CREATED AUTHOR AUTHOR'S ORGANIZ ATION 11/20/2022 [facility] DATE CREATED AUTHOR AUTHOR'S ORGANIZ ATION 02/12/2024 [facility] DATE CREATED AUTHOR AUTHOR'S ORGANIZ ATION 05/10/2024 [facility] DATE CREATED AUTHOR AUTHOR'S ORGANIZ ATION 07/08/2024 [facility] d[facility] Specialists EPIC Care Teams (unrecognized sec tion and content) Team Status: Active Member Role Status Dates Chanell Chen APRN Primary Care Provider Active Team Status: Inactive Member Role Status Dates Claribel Pickett MD Attending Provider Active St art: February 07, 2024 End: February 07, 2024 Chanell Chen APRN Primary Care Provider Active Start: February 07, 2024 End: February 07, 2024 Kiss Machine Operator Relationship Specialty Start Date End Date Adi Figueroa APRN-GRAPHIC DESIGN PROFESSOR [address] [place] [address] PCP - General Primary Care 06/01/22 Kiss Machine Operator Relationship Specialty Start Date End Date Adi Figueroa APRN-GRAPHIC DESIGN PROFESSOR [address] [place] [address] PCP - General Primary Care 06/01/22 Kiss Machine Operator Relationship Specialty Start Date End Date Chanell Chen APRN-ADMIRALTY LAWYER [address] [place] [address] PCP - General Family Medicine 05/08/24 Kiss Machine Operator Relationship Specialty Start Date End Date Adi Figueroa APRN-PEDRO [address] [place] [address] PCP - General Primary Care 06/01/22 Goals (unrecognized section and content) Goals may be documented in a n alternate sectionNot on filedocumented as of this encounterNot on filedocumented as of this encounterNot on filedocumented as of this encounterNot on filedocumented as of this encounter Reason for Visit (unrecogniz ed section and content) Reason Onset Date Comments Hearing Aid Problem 04/12/2024 Reason Comments Toenail Care Non dm nial care Reason Onset Date Comments Med Refill 03/30/2024 Reason Comments Follow-up EST PT F/U 1 [...] BE BASED ON THE PRIMARY CLINICAL RECORDS. [employer] [facility]. provides no warranty or guarantee of the accuracy or completeness of information in this document.
[2024-08-23 07:53] VITALS: BP 138/81; PULSE 81; TEMP 36.8; O2SAT 95; BMI 35.2
--- NOTE | 2024-08-23 08:10 | CT_ITS ---
The [address] [address] Patient Name: THI LINDSEY MRN: [id number] date: 1945 Sex: F Assigned Patient Location: ER Current Patient Location: ER Accession/Order Number: [id number] Exam Date: 08/23/2024 08:58 Report Date: 08/23/2024 09:13 At the request of: ROBERTO VELASQUEZ DO Procedure: CT abdomen pelvis wo con CT ABDOMEN AND PELVIS WITHOUT CONTRAST COMPARISON: None CLINICAL DATA: Right upper quadrant and flank pain Spiral images were obtained through the abdomen and pelvis without contrast. This CT exam was performed using one or more following dose reduction techniques: Automated exposure control, adjustment of the mA and/or kV according to patient size, or use of iterative reconstruction technique. Limited cuts through the lung bases show atelectasis and/or scarring. There is a small to moderate-sized hiatal hernia. No calcified gallstones are identified. No intrahepatic masses are seen. The spleen, pancreas and adrenal glands show no acute findings. There is minor bilateral perinephric fibrofatty stranding. No renal calculi or hydronephrosis are seen. There is no ureteral dilatation or stones. There is atherosclerotic plaque at the aorta and iliac arteries. No enlarged lymph nodes or ascites are seen. No dilated small bowel loops are present. There is mild colonic stool, greater on the right. There is wall thickening at the hepatic flexure with surrounding fibrofatty stranding. No obvious diverticular disease is present. Appearance could be compatible with epiploic appendagitis. There is a high cecum. The appendix is surgically absent. Levoscoliotic curvature and degenerative changes with associated stenosis are seen at the lumbar spine. Images through the pelvis show normal caliber small bowel loops. There is only minimal distal colonic stool. There are sigmoid diverticula, without associated active inflammation. The uterus is surgically absent. The urinary bladder shows no abnormalities for the degree of distention. There is a trace amount of dependent free pelvic fluid. CT/CT abdomen pelvis wo con IMPRESSION: HIATAL HERNIA. BIBASILAR PARENCHYMAL CHANGES. NO BOWEL OR URINARY TRACT OBSTRUCTION. PERICOLONIC INFLAMMATORY CHANGES AT THE HEPATIC FLEXURE. THIS MAY BE EPIPLOIC APPENDAGITIS. CLINICAL CORRELATION IS HOWEVER RECOMMENDED TO ANY CLINICAL SIGNS OF INFECTION. SIGMOID DIVERTICULOSIS. TRACE AMOUNT OF DEPENDENT FREE PELVIC FLUID. Impression dictated by: Zeinab Quinones M.D.08/23/2024 9:13 AM Dictation Location: [place] [address] Electronically authenticated by: [id number] Y Date: 08/23/2024 09:13
--- NOTE | 2024-08-23 08:12 | ED.GENADUL1 ---
HPI HPI - General Adult General Chief complaint: Back Pain/Injury Stated complaint: SHARP PAINS RIGHT LUNG SOB Time Seen by Provider: 08/23/24 07:48 Source: patient Mode of arrival: Wheelchair Limitations: no limitations History of Present Illness HPI narrative: Patient presents to ED complaint of right upper quadrant pain. Patient states it started on Wednesday. She said it started as like a dull achy cramp and then has worsened since. She said it is hard to get comfortable at night and sleep. No nausea or vomiting. She said she has not paid attention if food makes it better or worse. She said laying on her side or pushing on the abdomen makes it worse. She said she does not remember doing anything when it started it just started out of the blue. No fevers. Patient denies any flank pain with it. She said when she takes a deep breath she feels the pain and pressure in the upper abdomen. She denies any actual chest pain. She does still have her gallbladder. She has had her appendix out in the past. No other complaints at this time Related Data Home Medications ?Medication ?Instructions ?Recorded ?Confirmed alprazolam 0.25 mg tablet 0.25 mg PO DAILY 01/18/23 01/26/23 aripiprazole 2 mg tablet mg PO DAILY 01/18/23 aspirin 81 mg capsule 81 mg PO DAILY 01/18/23 01/26/23 celecoxib 200 mg capsule mg PO Q24H 01/18/23 fenofibrate micronized 30 mg 30 mg PO DAILY 01/18/23 01/26/23 capsule lansoprazole 30 mg capsule,delayed 30 mg PO DAILY 01/18/23 01/26/23 release (Prevacid) letrozole 2.5 mg tablet (Femara) 2.5 mg PO DAILY 01/18/23 01/26/23 lisinopril 10 tab PO DAILY 01/18/23 mg-hydrochlorothiazide 12.5 mg tablet lisinopril 5 mg tablet 5 mg PO DAILY 01/18/23 01/26/23 paroxetine mesylate 10 mg tablet 10 mg PO DAILY 01/18/23 01/26/23 prochlorperazine maleate 15 mg mg PO 01/18/23 capsule,extended release Allergies Allergy/AdvReac Type Severity Reaction Status Date / Time adhesive tape Allergy Unknown Rash Verified 08/23/24 07:52 Opioid HPI Opioid Management Most Recent Opioid Data: Last Pain Scale 4 01/26/23 13:10 01/26/23 Review of Systems ROS Status of ROS 10 or more systems reviewed and unremarkable except as noted in history and below [facility] Medical History (Updated 08/23/24 @ 09:29 by Margaret Russ DO) Cataract (lens) fragments in eye following cataract surgery ?H59.029 - Cataract (lens) fragments in eye following cataract surgery, unspecified eye (ICD-10) Breast cancer ?C50.919 - Malignant neoplasm of unspecified site of unspecified female breast (ICD-10) Surgical History (Updated 01/18/23 @ 13:32 by Nancy Delgado) History of lumpectomy of right breast ?Z98.890 - Other specified postprocedural states (ICD-10) H/O: hysterectomy ?Z90.710 - Acquired absence of both cervix and uterus (ICD-10) History of appendectomy ?Z90.49 - Acquired absence of other specified parts of digestive tract (ICD-10) Hx of tonsillectomy ?Z90.89 - Acquired absence of other organs (ICD-10) H/O section ?Z98.891 - History of uterine scar from previous surgery (ICD-10) History of musculoskeletal system surgery ?Z98.890 - Other specified postprocedural states (ICD-10) Family History (Updated 01/18/23 @ 13:34 by Nancy Delgado) Other Family history of cancer Heart disease Kidney disease Social History (Updated 01/18/23 @ 14:01 by Nancy Delgado) Within the past year, how often did you have a drink containing alcohol: 2-4 times a month Smoking status: Never smoker Non-prescribed substance use: denies use Previous occupational history: retired Highest level of school completed/degree received: high school graduate Little interest or pleasure in doing things: not at all Feeling down, depressed, or hopeless: not at all Exam Narrative Exam Narrative: Time Seen: [] Vital Signs: [Per nurse's notes.] General: [Alert] Skin: [Warm, dry, no rash.] Head: [Normocephalic, atraumatic.] Neck: [Supple, trachea midline.] Eye: [Pupils are equal, round and reactive to light, extraocular movements are intact, normal conjunctiva.] Ears, nose, mouth and throat: oral mucosa moist. Cardiovascular: [Regular rate and rhythm, no murmur.] Respiratory: [Lungs are clear to auscultation, respirations are non-labored, breath sounds are equal.] Chest wall: [No tenderness, no deformity.] Gastrointestinal: [Soft, right upper quadrant tenderness mild guarding non distended, normal bowel sounds.] MSK: 5 out of 5 muscle strength x 4 extremities no calf pain or edema Lymphatics: [No lymphadenopathy.] Psychiatric: [Cooperative, appropriate mood & affect.] Neurological: [Alert and oriented to person, place, time, and situation, no focal neurological deficit observed.] Constitutional Vital Signs, click to edit/add: Last Vital Signs Temp 98.2 F 08/23/24 07:53 Pulse 81 08/23/24 07:53 Resp 20 08/23/24 07:53 BP 138/81 08/23/24 07:53 Pulse Ox 95 08/23/24 07:53 O2 Del Method Room Air 08/23/24 07:53 Course Vital Signs Vital signs: Vital Signs Temperature 98.2 F 08/23/24 07:53 Pulse Rate 81 08/23/24 07:53 Respiratory Rate 20 08/23/24 07:53 Blood Pressure 138/81 08/23/24 07:53 Pulse Oximetry 95 08/23/24 07:53 Oxygen Delivery Method Room Air 08/23/24 07:53 Temperature 98.2 F 08/23/24 07:53 Pulse Rate 81 08/23/24 07:53 Respiratory Rate 20 08/23/24 07:53 Blood Pressure 138/81 08/23/24 07:53 Pulse Oximetry 95 08/23/24 07:53 Oxygen Delivery Method Room Air 08/23/24 07:53 Medical Decision Making MDM Narrative Medical decision making narrative: Patient CT scan shows epiploic appendagitis. Typically this is self-limiting and treated with NSAIDs. Patient does feel some pain relief with the Toradol that was given. Patient has a trip scheduled tomorrow with her daughter. Medically she is able to go on the trip if she is feeling up to it pain olsen tomorrow. Continue Tylenol and Motrin for the pain. Follow-up with the surgeon if this is not improving or of course return to the emergency room or nearest hospital if this is not getting any better. Labs are stable vitals are stable. Patient is comfortable with care plan for home. No evidence on the CT scan of abscess bowel obstruction hernia or other concerning findings. Differential Diagnosis Differential Diagnosis: Bowel obstruction hernia kidney stone acute cholecystitis Medical Records Medical records reviewed: Yes I reviewed the patient's medical records Lab Data Lab results reviewed: Yes I reviewed the patient's lab results Labs: Lab Results 08/23/24 Range/Units 08:30 WBC 6.5 (4.0-11.0) 10^3/uL RBC 2.96 L (4.20-5.40) 10^6/uL Hgb 9.8 L (12.0-16.0) g/dL Hct 30.2 L (36.0-48.0) % MCV 102.0 H (81.0-99.0) fL MCH 33.1 (26.7-34.0) pg MCHC 32.5 (29.9-35.2) g/dL RDW 13.0 (11.0-15.0) % Plt Count 172 (150-450) 10^3/uL MPV 10.1 (9.5-13.5) fL Neut % (Auto) 72.6 (43.0-75.0) % Lymph % (Auto) 15.1 L (20.5-60.0) % Stoddard % (Auto) 9.9 (1.7-12.0) % Eos % (Auto) 1.9 (0.9-7.0) % Baso % (Auto) 0.3 (0.2-2.0) % Neut # (Auto) 4.7 (1.4-6.5) 10^3/uL Lymph # (Auto) 1.0 L (1.2-3.8) 10^3/uL Stoddard # (Auto) 0.6 (0.3-0.8) 10^3/uL Eos # (Auto) 0.1 (0.0-0.7) 10^3/uL Baso # (Auto) 0.0 (0.0-0.1) 10^3/uL Abs Immat Gran (auto) 0.01 (0.00-0.03) 10^3/uL Imm/Tot Granulo (auto) 0.2 (0.0-0.5) % Sodium 137 (136-145) mmol/L Potassium 4.4 (3.5-5.1) mmol/L Chloride 104 (98-107) mmol/L Carbon Dioxide 26.6 (21.0-32.0) mmol/L Anion Gap 10.8 BUN 19.0 H (7.0-18.0) mg/dL Creatinine 1.14 H (0.55-1.02) mg/dL Est GFR ( Amer) 56 L (>=60 mL/min/1.73m^2) Est GFR (Non-Af Amer) 46 L (>=60 mL/min/1.73m^2) BUN/Creatinine Ratio 16.7 Glucose 98 (74-106) mg/dL Calcium 8.9 (8.5-10.1) mg/dL Total Bilirubin 0.4 (0.2-1.0) mg/dL AST 19 (15-37) U/L ALT 14 (14-59) U/L Alkaline Phosphatase 81 (46-116) U/L Total Protein 6.3 L (6.4-8.2) g/dL Albumin 3.3 L (3.4-5.0) g/dL Globulin 3.0 g/dL Albumin/Globulin Ratio 1.[address] scan - abdomen: Radiologist's impression: ITS Impressions Abdomen/Pelvis CT 08/23/24 08:10 IMPRESSION: HIATAL HERNIA. BIBASILAR PARENCHYMAL CHANGES. NO BOWEL OR URINARY TRACT OBSTRUCTION. PERICOLONIC INFLAMMATORY CHANGES AT THE HEPATIC FLEXURE. THIS MAY BE EPIPLOIC APPENDAGITIS. CLINICAL CORRELATION IS HOWEVER RECOMMENDED TO ANY CLINICAL SIGNS OF INFECTION. SIGMOID DIVERTICULOSIS. TRACE AMOUNT OF DEPENDENT FREE PELVIC FLUID. Impression dictated by: Zeinab Quinones M.D.08/23/2024 9:13 AM Dictation Location: [place] [address] Electronically authenticated by: [id number] Y Date: 08/23/2024 09:13 Discharge Plan Discharge Chief Complaint: Back Pain/Injury Clinical Impression: Epiploic appendagitis Patient Disposition: Home, Self-Care Time of Disposition Decision: 09:28 Condition: Good Mode of Transportation: Private Vehicle Prescriptions / Home Meds: No Action aripiprazole 2 mg tablet PO DAILY alprazolam 0.25 mg tablet 0.25 mg PO DAILY aspirin 81 mg capsule 81 mg PO DAILY celecoxib 200 mg capsule PO Q24H lisinopril-hydrochlorothiazide 10-12.5 mg tablet PO DAILY letrozole [Femara] 2.5 mg tablet 2.5 mg PO DAILY fenofibrate micronized 30 mg capsule 30 mg PO DAILY lisinopril 5 mg tablet 5 mg PO DAILY paroxetine mesylate 10 mg tablet 10 mg PO DAILY lansoprazole [Prevacid] 30 mg capsule,delayed release(DR/EC) 30 mg PO DAILY prochlorperazine maleate 15 mg capsule, extended release PO Print Language: Turkmen Instructions: Epiploic Appendagitis (ED) Referrals: Jose G Hardy MD [Physician] - 1 week Chanell Chen NP [Primary Care Provider] - 1 week Discharge Date/Time: 08/23/24 09:44
[2024-08-23] MEDS: KETOROLAC TROMETHAMINE 30 MG/ML VIAL 15 MG IVP (08:34)
[2024-08-23 08:43] LABS: Basophils Percent Auto 0.3 % (0.2-2.0); Eosinophils Absolute Auto 0.1 10^3/uL (0.0-0.7); Eosinophils Percent Auto 1.9 % (0.9-7.0); Hematocrit 30.2 % (36.0-48.0); Hemoglobin 9.8 g/dL (12.0-16.0); Immature Granulocytes Abs Auto 0.01 10^3/uL (0.00-0.03); Immature Granulocytes Pct Auto 0.2 % (0.0-0.5); Lymphocytes Percent Auto 15.1 % (20.5-60.0); Mean Corpuscular HGB Conc 32.5 g/dL (29.9-35.2); Mean Corpuscular Hemoglobin 33.1 pg (26.7-34.0); Mean Platelet Volume 10.1 fL (9.5-13.5); Monocytes Absolute Auto 0.6 10^3/uL (0.3-0.8); Monocytes Percent Auto 9.9 % (1.7-12.0); Neutrophils Absolute Auto 4.7 10^3/uL (1.4-6.5); Neutrophils Percent Auto 72.6 % (43.0-75.0); Platelet Count 172 10^3/uL (150-450); Red Blood Count 2.96 10^6/uL (4.20-5.40); White Blood Count 6.5 10^3/uL (4.0-11.0)
[2024-08-23 08:57] LABS: Alanine Aminotransferase 14 U/L (14-59); Albumin Globulin Ratio 1.1; Albumin Level 3.3 g/dL (3.4-5.0); Alkaline Phosphatase 81 U/L (46-116); Anion Gap 10.8; Aspartate Amino Transferase 19 U/L (15-37); BUN Creatinine Ratio 16.7; Bilirubin Total 0.4 mg/dL (0.2-1.0); Calcium 8.9 mg/dL (8.5-10.1); Carbon Dioxide 26.6 mmol/L (21.0-32.0); Chloride 104 mmol/L (98-107); Estimated GFR (African America 56 (>=60 mL/min/1.73m^2); Estimated GFR (Non-African Ame 46 (>=60 mL/min/1.73m^2); Glucose 98 mg/dL (74-106); Potassium 4.4 mmol/L (3.5-5.1); Sodium 137 mmol/L (136-145); Total Protein 6.3 g/dL (6.4-8.2)
== END 2024-08-23 09:44 | disposition home or self-care (01) ==
PROVIDERS: Emergency Provider Emergency Medicine; PCP Nurse Practitioner
DX: K63.89 Other specified diseases of intestine (principal); R06.02 Shortness of breath; Z90.49 Acquired absence of other specified parts of digestive tract; Z90.710 Acquired absence of both cervix and uterus; K57.30 Diverticulosis of large intestine without perforation or abscess without bleeding
CPT/HCPCS: 36415; 74176; 80053; 85025; 96374; 99284; J1885

== ENCOUNTER 2024-09-04 13:17 | Outpatient (OUT) | payer MEDICARE, SELFPAY ==
[2024-09-04 13:56] LABS: Percent Iron Saturation 27.1 %
[2024-09-05 03:07] LABS: Vitamin B12 941 pg/mL (232-1245)
== END 2024-09-04 13:18 | disposition home or self-care (01) ==
LOC: LAB 13:19
PROVIDERS: PCP Nurse Practitioner; Visit Provider Internal Medicine Hematology & Oncology
DX: D64.9 Anemia, unspecified (principal); D50.9 Iron deficiency anemia, unspecified; K90.9 Intestinal malabsorption, unspecified
CPT/HCPCS: 36415; 82306; 82607; 82728; 82746; 83540; 83550

== ENCOUNTER 2024-09-05 07:33 | Outpatient (RCR) | payer MEDICARE, SELFPAY | END 2024-09-06 07:56 | disposition home or self-care (01) | LOC: HEMC 07:33 | PROVIDERS: PCP Nurse Practitioner; Visit Provider Internal Medicine Hematology & Oncology | DX: D50.9 Iron deficiency anemia, unspecified (principal); D64.9 Anemia, unspecified; Z85.3 Personal history of malignant neoplasm of breast; R06.02 Shortness of breath; Z82.49 Family history of ischemic heart disease and other diseases of the circulatory system | CPT/HCPCS: G0463 ==

== ENCOUNTER 2024-10-10 15:01 | Outpatient (OUT) | payer MEDICARE, SELFPAY ==
[2024-10-10 15:22] LABS: Basophils Percent Auto 0.3 % (0.2-2.0); Eosinophils Absolute Auto 0.2 10^3/uL (0.0-0.7); Eosinophils Percent Auto 2.6 % (0.9-7.0); Hematocrit 31.5 % (36.0-48.0); Hemoglobin 10.7 g/dL (12.0-16.0); Immature Granulocytes Abs Auto 0.01 10^3/uL (0.00-0.03); Immature Granulocytes Pct Auto 0.2 % (0.0-0.5); Lymphocytes Absolute Auto 1.2 10^3/uL (1.2-3.8); Mean Corpuscular Hemoglobin 33.3 pg (26.7-34.0); Mean Corpuscular Volume 98.1 fL (81.0-99.0); Mean Platelet Volume 9.5 fL (9.5-13.5); Monocytes Absolute Auto 0.5 10^3/uL (0.3-0.8); Monocytes Percent Auto 7.5 % (1.7-12.0); Neutrophils Absolute Auto 4.5 10^3/uL (1.4-6.5); Neutrophils Percent Auto 70.4 % (43.0-75.0); Platelet Count 211 10^3/uL (150-450); Red Blood Count 3.21 10^6/uL (4.20-5.40); Red Cell Distribution Width 12.1 % (11.0-15.0); White Blood Count 6.4 10^3/uL (4.0-11.0)
[2024-10-10 15:28] LABS: Bilirubin Urine NEGATIVE (NEGATIVE); Blood Urine TRACE-I (NEGATIVE); Clarity Urine CLEAR (CLEAR); Color Urine LT. YELLOW (YELLOW); Glucose Urine UA NEGATIVE (NEGATIVE); Ketones Urine NEGATIVE (NEGATIVE); Leukocyte Esterase Urine MODERATE (NEGATIVE); Nitrite Urine POSITIVE (NEGATIVE); Protein Urine NEGATIVE (NEG/TRACE); Specific Gravity Urine <=1.005 (1.005-1.025); Urobilinogen Urine 0.2 EU/dL (0.2-1.0)
[2024-10-10 15:39] LABS: Bacteria Urine MODERATE #/HPF (NONE SEEN); Mucus Urine NONE SEEN (NONE SEEN); Squamous Epithelial Cell Urine MODERATE #/LPF (NONE/RARE)
[2024-10-10 15:40] LABS: Cast Seen? NONE SEEN #/LPF (NONE SEEN); Crystals Seen? None Seen #/HPF (None Seen)
[2024-10-10 15:45] LABS: Microalbumin Urine Random <1.3 mg/dL (<=30.0)
[2024-10-10 15:46] LABS: Albumin Level 3.9 g/dL (3.4-5.0); Anion Gap 12.5; BUN Creatinine Ratio 22.4; Calcium 9.4 mg/dL (8.5-10.1); Carbon Dioxide 27.6 mmol/L (21.0-32.0); Chloride 101 mmol/L (98-107); Estimated GFR (African America >60 (>=60 mL/min/1.73m^2); Estimated GFR (Non-African Ame 50 (>=60 mL/min/1.73m^2); Glucose 125 mg/dL (74-106); Magnesium 1.6 mg/dL (1.8-2.4); Phosphorus 3.3 mg/dL (2.6-4.7); Potassium 4.1 mmol/L (3.5-5.1); Sodium 137 mmol/L (136-145); Uric Acid 6.7 mg/dL (2.6-6.0)
[2024-10-11 09:08] LABS: PTH, Intact 32 pg/mL (15-65)
== END 2024-10-10 15:02 | disposition home or self-care (01) ==
PROVIDERS: PCP Nurse Practitioner
DX: N18.32 Chronic kidney disease, stage 3b (principal)
CPT/HCPCS: 36415; 80048; 81001; 82042; 82043; 82570; 83735; 83970; 84100; 84550; 85025

== ENCOUNTER 2024-12-19 07:12 | Outpatient (OUT) | payer MEDICARE, SELFPAY ==
--- OUTSIDE RECORDS SUMMARY | 2024-11-01 08:55 | XMS_ITS ---
Author Organization [facility] Care Team Providers Care Senior Vice President & General Counsel Name Role Phone MONIQUE WEIR Attending Unavailable MONIQUE WEIR Attending Unavailable BOONE JHA Referring Unavailable SHAMMO, WEN Primary Care Unavailable KEN FLORENTINO Attending Unavailable SHAMMO, WEN Referring Unavailable ADAM, MILTON Primary Care Unavailable TABITHA CANO Referring Unavailable ADAM, MILTON Primary Care Unavailable Nieves, Claribel Attending Unavailable Nieves Claribel Admitting Unavailable Adam, Bath Primary Care Unavailable Purpose PROBLEMS DATE TYPE CONDITION / CODE ATTENDING STATUS [facility] 11/01/2024 Unknown Chronic kidney d isease, stage 3a / N18.31(ICD-10) NA Active [facility] 12/11/2022 Unknown Pulmonary hypert ension, unspecified / I27.20(ICD-10) KEN FLORENTINO Active [facility] 12/24/2015 Unknown Essential (prima ry) hypertension / I10(ICD-10) OMAULIK KEN E [facility] 12/24/2015 Unknown Hyperlipidemia, unspecified / E78.5(ICD-10) OOSTRA, KEN E [facility] 05/08/2024 Unknown 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) KEN FLORENTINO [facility] 05/08/2024 Unknown Other forms of d yspnea / R06.09(ICD-10) KEN FLORENTINO [facility] 05/08/2024 Unknown Follow-up / FREETEXT(AOF) KEN FLORENTINO [facility] 01/26/2024 Unknown Pain in right kn ee / M25.561(ICD-10) NA Active [facility] PROCEDURES No Procedure Records Found VITAL SIGNS No Vital Signs Records Found RESULTS US RETROPERITONEAL COMPLETE Observed: 8:58 AM Status: COMPLETED Source: [facility] US RETROPERITONEAL COMPLETE RENAL ULTRASOUND HISTORY: Chronic kidney disease stage III COMPARISON: None FINDINGS: The right kidney measures 9.1 cm and left kidney 9.6 cm in length. Cortical thickness and corticomedullary differentiation are preserved. No renal stones, masses, or collecting system dilatation. The bladder is unremarkable. Bilateral ureteral jets are seen. IMPRESSION: Unremarkable renal ultrasound. Finalized by Pepito Fermin MD on 11/05/2024 8:[address] GUIDED BONE MARROW BX/ASPIR Observed: 02/07/2024 2:07 PM Status: COMPLETED Source: [facility] [place] [address] CT Scan Report Signed Patient: Elli Lindsey MR#: [id number] : 1945 Acct:[id number] Age/Sex: 78 / F ADM Date: 02/07/24 Loc: CT Room: Type: [facility] Attending Dr: Claribel Pickett MD Copies to: [...] CT-guided bone marrow biopsy. Impression dictated by: eSbastian Adams Jr., D.O.02/07/2024 2:08 PM Dictation Location: [place] [address] Transcribed By: [facility] 02/07/24 1408 Dictated By: Sebastian Adams Jr, DO 02/07/24 1407 Signed By: <Electronically signed by Sebastian Adams Jr, DO in OV> 02/07/24 1408 PATHOLOGY REQUEST FOR LAB MICHELLE Collected: 02/07/2024 11:00 AM Status: F Source: [facility] Order Comment: BM BIOPSY TYPE CODE TESTS RESULT OUT OF RANGE REFERENCE UNITS LAB PATH TO [facility] Pathology Request for Lab Michelle Result Comment: See report. Scanned copy available in EMR. PERFORMED BY: [place] [address] PATHOLOGIST [employer] SALESPERSON KATRINA PATTERSON M.D. Performed By: #### PATH TO [facility] #### [address] COMPLETE BLOOD COUNT AUTO DIFF Collected: 02/07/2024 9:12 AM Status: F Source: F [facility] Order Comment: STAT FOR CT B X TYPE CODE TESTS RESULT OUT OF RANGE REFERENCE UNITS LAB WBC White Blood Count 8.0 Normal 3.8-11.6 10*3/uL LAB UNWBC Uncorrected WBC 8.0 Normal 3.8-11.6 10*3/uL LAB RBC Red Blood Count 3.45 Low 3.60-5.00 LAB HGB Hemoglobin 11.5 Low 11.8-15.4 g/dL LAB HCT Hematocrit 33.8 Low 34.0-46.4 % LAB MCV Mean Corpuscular Volume 98.1 Normal 80-100 fL LAB MCH Mean Corpuscular Hemoglobin 33.5 Normal 24.7-34.3 pg LAB MCHC Mean Corpuscular HGB Conc 34.1 Normal 32.0-35.0 g/dL LAB RDW Red Cell Distribution Width 13.8 Normal 11.9-15.3 % LAB PLT Platelet Count 271 Normal 150-450 10*3/uL LAB MPV Mean Platelet Volume 7.2 Normal 6.3-10.7 fL LAB NE% Neutrophils % (Auto) 72.6 . % LAB LY% Lymphocytes % (Auto) 16.7 . % LAB MO% Monocytes % (Auto) 7.6 . % LAB EO% Eosinophils % (Auto) 2.5 . % LAB BA% Basophils % (Auto) 0.6 . % LAB NRBC% NRBC% 0.0 Normal 0-0.5 /100{WBC} LAB NE# Neutrophils # (Auto) 5.8 Normal 1.8-7.7 10*3/uL LAB LY# Lymphocytes # (Auto) 1.3 Normal 1.00-4.8 10*3/uL LAB MO# Monocytes # (Auto) 0.6 Normal 0.0-0.8 10*3/uL LAB EO# Eosinophils # (Auto) 0.2 Normal 0.0-0.45 10*3/uL LAB BA# Basophils # (Auto) 0.0 Normal 0.0-0.2 10*3/uL Result Comment: PERFORMED BY : [place] [address] PATHOLOGIST [employer] SAL[employer]ERSON KATRINA PATTERSON M.D. Performed By: #### CBC, PP # ### [address] COAGULATION PROFILE Collected: 02/07/2024 9:[address] atus: F Source: [facility] Order Comment: STAT FOR CT B X TYPE CODE TESTS RESULT OUT OF RANGE REFERENCE UNITS LAB R PT Prothrombin Time 11.8 Normal 9.0-12.9 s Result Comment: A hematocrit value greater than 55% may lead to inaccurate results in coagulation testing. Patients having hematocrit values >55% require a special collection tube for coagulation studies. Please contact the laboratory at [phone] for redraw instructions. LAB INR INR 1.0 Result Comment: INR Therapeu tic Range A) Pre- and Peroperative OAT started two weeks before surgery. NOT HIP SURGERY: 1.5 - 2.5 HIP SURGERY: 2 - 3 B) Primary and secondary prevention of venous THROMBOSIS: 2 - 3 C) Active venous thrombosis, pulmonary embolism and prevention of recurrent venous thrombosis: 2 - 3 D) Prevention of arterial thromboembolism including patients with mechanical heart valves: 3 - 4.5 LAB PTT Partial Thromboplastin Time 36.0 Normal 25.1-36.5 s Result Comment: A hematocrit value greater than 55% may lead to inaccurate results in coagulation testing. Patients having hematocrit values >55% require a special collection tube for coagulation studies. Please contact the laboratory at [phone] for redraw instructions. PERFORMED BY: [place] [phone] PATHOLOGIST [employer] SALESPERSON KATRINA PATTERSON M.D. Performed By: #### CBC, PP # ### [address] XR KNEE RT 3 VWS Observed: 01/26/2024 2:53 PM Status: COMPLETED Source: [facility] XR KNEE RT 3 VWS CLINICAL INFORMATION: Right medial knee pain TECHNIQUE: XR KNEE RT 3 VWS 3 views the right knee were obtained. Moderate to severe osteoarthritic changes noted with joint space narrowing most significant medially. Chondrocalcinosis appreciated laterally. There is no joint effusion or obvious fracture. IMPRESSION: Medial predominant osteoarthritis. Finalized by Karson Garcia MD on 01/26/2024 10:55 PM ALLERGIES DATE TYPE / CODE NAME / CODE REACTION SEVERITY SOURCE 12/24/2015 SYSTEMIC~Food/41 [id number](SNOMED CT) OTHER [facility] 06/20/2014 DRUG~NON-CBORD/4 [id number](SNOMED CT) HAY FEVER AND ALLERGY RELIEF [facility] ENCOUNTERS ADMIT/DISCHARGE ACCOUNT NUMBER ADMITTING ENCOUNTER CLASS LOCATION SOURCE 11/01/2024/11/02/19 [id number] Ambulatory Building:PFM _US [facility] 09/14/2024/09/15/19 [id number] Ambulatory Building:NOM S CI POD [facility] EPIC 07/06/2024/07/06/19 [id number] Ambulatory Building:NOM S CI POD [facility] 05/08/2024/05/08/20 [id number] Ambulatory Buildin 4 [facility] 02/07/2024/02/07/20 [id number] [facility] 01/26/2024/01/26/20 [id number] Ambulatory Building:PF _XR [facility] FUNCTIONAL STATUS No Functional Status Records Found EQUIPMENT No Equipment Records Found PAYERS ENCOUNTER GUARANTOR PAYER SUBSCRIBER SOURCE 11/01/2024 PELON Fleming CÉSARDOB: [address] [place], [place] [address]Bwn: (HP) Primary Insurance:[facility] MEDICARE ADVANTAGE PPOPolicy Number: [id number] Date:2023-06-14 PELON Fleming MICHELTRINGDOB: [id number] [place] [address] [facility] 09/14/2024 PELON WOTRINGDOB: [place] [address]Ack: (HP) Primary Insurance:[facility] MEDICAREPolicy Number: [id number] Date:2024-06-14 PELON MICHELTRINGDOB: [id number] [place] [address] [facility] 07/06/2024 PELON MICHELTRINGDOB: [place] [address]Dfk: (HP) Primary Insurance:[employer] MEDICAREPolicy Number: [id number] Date:2024-06-14 PELON WOTRINGDOB: [id number] [place] [address] [facility] 05/08/2024 PELON Fleming WOTRINGDOB: [address] [place], [place] [address]Fwa: (HP) Primary Insurance:[facility] MEDIC[facility] ADVANTAGE PPOPolicy Number: [id number] Date:2023-06-14 PELON Fleming WOTRINGDOB: [id number] [place], [place] [address]Lps: (HP) [facility] 02/07/2024 Elli Dill [id number] [place] [address]Gkk: (HP) Primary Insurance:[facility] PFFSPolicy Number: [id number] Date:[id number] [address]UU: Elli Dill WotringDOB: [id number] [place] [address]Ptl: (HP) [facility] 02/07/2024 Secondary Insurance:Self PayPolicy Number: Effective Date:2024-01-26 [facility] PELON Fleming WOTRINGDOB: [address] [place], [place] [address]Qon: (HP) Primary Insurance:[facility] MEDIC[facility] ADVANTAGE PPOPolicy Number: [id number] Date:2023-06-14 PELON Fleming WOTRINGDOB: [id number] [place], [place] [address]Xuv: (HP) [facility] SOCIAL HISTORY No Social History Records Found FAMILY HISTORY No Family History Records Found ADVANCE DIRECTIVES No Advanced Directives Records Found INFORMATION SOURCE DATE CREATED AUTHOR AUTHOR'S CODI BAILEY 12/19/2024 [facility]
[2024-12-19 07:41] LABS: Hematocrit 29.5 % (36.0-48.0); Hemoglobin 9.7 g/dL (12.0-16.0); Mean Corpuscular HGB Conc 32.9 g/dL (29.9-35.2); Mean Corpuscular Hemoglobin 33.4 pg (26.7-34.0); Mean Corpuscular Volume 101.7 fL (81.0-99.0); Platelet Count 190 10^3/uL (150-450); Red Blood Count 2.90 10^6/uL (4.20-5.40); White Blood Count 5.7 10^3/uL (4.0-11.0)
[2024-12-19 08:12] LABS: Albumin Level 3.5 g/dL (3.4-5.0); Anion Gap 15.1; Blood Urea Nitrogen 24.0 mg/dL (7.0-18.0); Calcium 9.2 mg/dL (8.5-10.1); Carbon Dioxide 24.0 mmol/L (21.0-32.0); Chloride 107 mmol/L (98-107); Estimated GFR (African America 56 (>=60 mL/min/1.73m^2); Estimated GFR (Non-African Ame 46 (>=60 mL/min/1.73m^2); Glucose 102 mg/dL (74-106); Magnesium 1.8 mg/dL (1.8-2.4); Potassium 5.1 mmol/L (3.5-5.1); Sodium 141 mmol/L (136-145); Uric Acid 8.6 mg/dL (2.6-6.0)
[2024-12-19 08:12] LABS: Glucose Urine UA NEGATIVE (NEGATIVE)
[2024-12-19 11:16] LABS: Cast Seen? NONE SEEN #/LPF (NONE SEEN); Crystals Seen? None Seen #/HPF (None Seen)
== END 2024-12-19 07:13 | disposition home or self-care (01) ==
LOC: LAB 07:13
PROVIDERS: PCP Nurse Practitioner; Visit Provider Internal Medicine
DX: N18.31 Chronic kidney disease, stage 3a (principal)
CPT/HCPCS: 36415; 80069; 81001; 82043; 82570; 83735; 84550; 85027

== ENCOUNTER 2025-01-15 06:57 | Outpatient (OUT) | payer MEDICARE, SELFPAY ==
--- OUTSIDE RECORDS SUMMARY | 2024-10-11 05:15 | XMS_ITS ---
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 Medications Medication SIG (Take, Route, Frequency, Duration) Notes Start Date End Date Status valACYclovir HCl 1 GM 2 tablet Orally BID for 2 days Not-Taking Zestoretic 10-12.5 MG 1 tablet Orally Once a day Not-Taking Lisinopril-hydroCHLOROth iazide 20-25 MG 1 tablet Orally Once a day Active traMADol HCl 50 mg tablet Not-Taking Prochlorperazine Maleate 10 mg 1 tablet(s) Q6-8H for 30 days 05/04/2014 Not-Taking PARoxetine Mesylate 7.5 MG 1 capsule at bedtime Orally Once a day Not-Taking Lisinopril Once a day Not-Landy ng Fenofibrate Micronized Not-Taking Prevacid DAILY Not-Stiven g Percocet 10-325 MG 1 tablet as needed Orally every 6 hrs Not-Taking CeleBREX capsule DAILY Not-T aking Aspirin 81 mg DAILY Not-T aking Anastrozole 1 mg 1 tablet(s) DAILY for 90 days Take one tablet daily 09/18/2014 Not-Taking ALPRAZolam 1 MG 1 tablet Orally daily Active Femara 2.5 mg 1 tablet(s) DAILY for 30 days 12/18/2014 Not-Taking Cetirizine HCl 10 MG 1 tablet Orally Once a day Active Iron (Ferrous Sulfate) 325 (65 Fe) MG 1 tablet Orally daily Active Spironolactone 25 MG 1 tablet Orally daily Active Multivitamin Active Lansoprazole 15 MG 1 capsule 1/2 to 1 hour before morning meal Orally Once a day Active tiZANidine HCl 2 MG 1 tablet at bedtime as needed Orally Once a day Active predniSONE 20 MG 1 tablet with food or milk Orally BID Active Pravastatin Sodium 20 MG 1 tablet Orally Once a day Active Citalopram Hydrobromide 20 MG 1 tablet Orally Once a day Active ARIPiprazole 2 MG 1 tablet Orally Once a day Active Encounters Encounter Location Date Provider Diagnosis [facility] [address] [place] [address] 10/11/2024 Morteza Calles Plan Of Treatment Next Appt Details Provider Name:Claribel Pickett , 03/13/2025 09:00:00 AM, [address] [place], [address], Provider Name:Morteza Calles, 06/25/2025 12:00:00 PM, [address] [place] [address], [phone], Progress Notes * Elli LINDSEYOB: [birth year] (78 yo F)Acc No.[id number]:10/11/2024 Patient: Elli LEUNG :1945 A ge:78 Y S ex:Female Address:[address] [place] [address], [address] Subjective: * Chief Complaints: * N P chart prep * Medical History: * Surgical History: H istory of musculoskeletal procedures leg 2007 History of section History of tonsillectomy History of cataract surgery 2006 History of appendectomy 1963 History of hysterectomy 1973 History of breast lumpectomy was performed 04/02/2014 right ER 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 M other: . M igrated Family History:: Family history of breast cancer grandmother;Family history of cancer sister leukemia;Family history of kidney disease father;Family history of heart disease mother father brother;. * Medications: T akingALPRAZolam 1 MG Tablet 1 tablet Orally daily ARIPiprazole 2 MG Tablet 1 tablet Orally Once a day Cetirizine HCl 10 MG Tablet 1 tablet Orally Once a day Citalopram Hydrobromide 20 MG Tablet 1 tablet Orally Once a day Iron (Ferrous Sulfate) 325 (65 Fe) MG Tablet 1 tablet Orally daily Lansoprazole 15 MG Capsule Delayed Release 1 capsule 1/2 to 1 hour before morning meal Orally Once a day Lisinopril-hydroCHLOROthiazide 20-25 MG Tablet 1 tablet Orally Once a day Multivitamin Pravastatin Sodium 20 MG Tablet 1 tablet Orally Once a day predniSONE 20 MG Tablet 1 tablet with food or milk Orally BID Spironolactone 25 MG Tablet 1 tablet Orally daily tiZANidine HCl 2 MG Tablet 1 tablet at bedtime as needed Orally Once a day Taking ALPRAZolam 1 MG Tablet 1 tablet Orally daily Taking ARIPiprazole 2 MG Tablet 1 tablet Orally Once a day Taking Cetirizine HCl 10 MG Tablet 1 tablet Orally Once a day Taking Citalopram Hydrobromide 20 MG Tablet 1 tablet Orally Once a day Taking Iron (Ferrous Sulfate) 325 (65 Fe) MG Tablet 1 tablet Orally daily Taking Lansoprazole 15 MG Capsule Delayed Release 1 capsule 1/2 to 1 hour before morning meal Orally Once a day Taking Lisinopril-hydroCHLOROthiazide 20-25 MG Tablet 1 tablet Orally Once a day Taking Multivitamin Taking Pravastatin Sodium 20 MG Tablet 1 tablet Orally Once a day Taking predniSONE 20 MG Tablet 1 tablet with food or milk Orally BID Taking Spironolactone 25 MG Tablet 1 tablet Orally daily Taking tiZANidine HCl 2 MG Tablet 1 tablet at bedtime as needed Orally Once a day Not- Taking/PRNAnastrozole 1 mg tablet 1 tablet(s) DAILY , Notes to Pharmacist: Take one tablet dailyAspirin 81 mg DAILY CeleBREX(Celecoxib) capsule capsule DAILY Femara(Letrozole) 2.5 mg tablet 1 tablet(s) DAILY Fenofibrate Micronized Lisinopril Once a day PARoxetine Mesylate 7.5 MG Capsule 1 capsule at bedtime Orally Once a day Percocet(oxyCODONE- Acetaminophen) 10-325 MG Tablet 1 tablet as needed Orally every 6 hrs Prevacid DAILY Prochlorperazine Maleate 10 mg tablet 1 tablet(s) Q6-8H traMADol HCl 50 mg tablet tablet valACYclovir HCl 1 GM Tablet 2 tablet Orally BID Zestoretic(Lisinopril-hydroCHLOROthiazide) 10-12.5 MG Tablet 1 tablet Orally Once a day Medication List reviewed and reconciled with the patientNot-Taking/PRN Anastrozole 1 mg tablet 1 tablet(s) DAILY , Notes to Pharmacist: Take one tablet dailyNot-Taking/PRN Aspirin 81 mg DAILY Not-Taking/PRN CeleBREX(Celecoxib) capsule capsule DAILY Not-Taking/PRN Femara(Letrozole) 2.5 mg tablet 1 tablet(s) DAILY Not-Taking/PRN Fenofibrate Micronized Not-Taking/PRN Lisinopril Once a day Not-Taking/PRN PARoxetine Mesylate 7.5 MG Capsule 1 capsule at bedtime Orally Once a day Not-Taking/PRN Percocet(oxyCODONE-Acetaminophen) 10-325 MG Tablet 1 tablet as needed Orally every 6 hrs Not-Taking/PRN Prevacid DAILY Not-Taking/PRN Prochlorperazine Maleate 10 mg tablet 1 tablet(s) Q6-8H Not-Taking/PRN traMADol HCl 50 mg tablet tablet Not-Taking/PRN valACYclovir HCl 1 GM Tablet 2 tablet Orally BID Not-Taking/PRN Zestoretic(Lisinopril-hydroCHLOROthiazide) 10-12.5 MG Tablet 1 tablet Orally Once a day Medication List reviewed and reconciled with the patient * Allergies: p aper tape: Allergyno[Allergies Verified] Objective: * Vitals: * Physical Examination: Assessment: Plan: * Treatment: * Procedure Codes: * true * Date: Generated for Elvia ponce/Elvia/Steve on: 01/15/2025 07:01 AM EDT
--- OUTSIDE RECORDS SUMMARY | 2024-10-24 11:20 | XMS_ITS ---
Author Organization [facility] [place] Address [address] [place] [address] Care Team Providers Care Real Estate Services Administrator Name Role Phone Adi Sal NP Primary Care Provider Morteza Song Unavailable [phone] Allergies Allergen (clinical drug ingredient) Drug/Non Drug Allergy documented on EMR Reaction Allergy Type Onset Date Status paper tape (uncoded) Unknown Allergy Active REASON FOR VISIT ROSEY Medications Medication SIG (Take, Route, Frequency, Duration) Notes Start Date End Date Status Prevacid DAILY Not-Takin g traMADol HCl 50 mg tablet Not-Taking Prochlorperazine Maleate 10 mg 1 tablet(s) Q6-8H for 30 days 05/04/2014 Not-Taking Zestoretic 10-12.5 MG 1 tablet Orally Once a day Not-Taking valACYclovir HCl 1 GM 2 tablet Orally BID for 2 days Not-Taking Femara 2.5 mg 1 tablet(s) DAILY for 30 days 12/18/2014 Not-Taking Lisinopril Once a day Not-Taki ng Fenofibrate Micronized Not-Taking Percocet 10-325 MG 1 tablet as needed Orally every 6 hrs Not-Taking PARoxetine Mesylate 7.5 MG 1 capsule at bedtime Orally Once a day Not-Taking Spironolactone 25 MG 1 tablet Orally daily Active tiZANidine HCl 2 MG 1 tablet at bedtime as needed Orally Once a day Not-Taking Aspirin 81 mg DAILY Not-T aking Anastrozole 1 mg 1 tablet(s) DAILY for 90 days Take one tablet daily 09/18/2014 Not-Taking CeleBREX capsule DAILY Not-T aking predniSONE 20 MG 1 tablet with food or milk Orally BID Not-Taking Lisinopril-hydroCHLOROth iazide 20-25 MG 1 tablet Orally Once a day Active Lansoprazole 15 MG 1 capsule 1/2 to 1 hour before morning meal Orally Once a day Active Pravastatin Sodium 20 MG 1 tablet Orally Once a day Active Multivitamin Active ALPRAZolam 1 MG 1 tablet Orally daily Not-Taking Cetirizine HCl 10 MG 1 tablet Orally Once a day Active ARIPiprazole 2 MG 1 tablet Orally Once a day Active Iron (Ferrous Sulfate) 325 (65 Fe) MG 1 tablet Orally daily Active Citalopram Hydrobromide 20 MG 1 tablet Orally Once a day Not-Taking Social History Tobacco Use: Social History Observation Description Date Details (start date - stop date) Never Smoker NA - NA Tobacco Use/Smoking Question Answer Notes Patient is a nonsmoker Problems Problem Type SNOMED Code ICD Code Onset Dates Problem Status W/U Status Risk Notes Problem Asymptomatic hypertension (I10) Active confirmed Problem Chronic kidney disease stage 3A (disorder) (278483021) Chronic kidney disease, stage 3a (N18.31) Active confirmed Vital Signs Blood pressure systolic 134 mm Hg 10/25/19 25 Blood pressure diastolic 82 mm Hg 025 Height 60 in 10/24/2024 Weight 185.0 lbs 10/24/2024 BMI 36.13 kg/m2 10/24/2024 Encounters Encounter Location Date Provider Diagnosis [facility] [place] [address] [place] [address] 10/24/2024 Morteza Calles Anemia, unspecified D64.9 ; Asymptomatic hypertension I10 and Chronic kidney disease, stage 3a N18.31 Assessments Encounter Date Diagnosis (ICD Code) Assessment Notes Treatment Notes Treatment Clinical Notes Section Notes 10/24/2024 Anemia, unspecified (ICD-10 - D64.9) 10/24/2024 Asymptomatic hypertension (ICD-10 - I10) 10/24/2024 Chronic kidney disease, stage 3a (ICD-10 - N18.31) 78 yo F with thn and CKD 3a that is 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 No evidence of albuminuria or hematuria, no concern for any vasculitic glomerular processes No edema on exam today Electrolytes and PTH are normal Avoid all NSAID use, including celebrex Continue FELIPE-I and 2 diuretic regimen BP today is controlled F/U with hematology for anemia management, Hgb over 10, no need for JUSTINA therapy Plan Of Treatment Treatment Notes Assessment Notes Chronic kidney disease, stage 3a 78 yo F with thn and CKD 3a that is 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 No evidence of albuminuria or hematuria, no concern for any vasculitic glomerular processes No edema on exam today Electrolytes and PTH are normal Avoid all NSAID use, including celebrex Continue FELIPE-I and 2 diuretic regimen BP today is controlled F/U with hematology for anemia management, Hgb over 10, no need for JUSTINA therapy Pending Test Test Name Order Date UA (URINALYSIS, COMPLETE) 10/24/2024 ALBUMIN, BLOOD 10/24/2024 MAGNESIUM 10/24/2024 CBC NO DIFF 10/24/2024 PHOSPHORUS 10/24/2024 URIC ACID 10/24/2024 US Renals and Bladder 10/24/2024 RENAL PANEL 10/24/2024 MICROALBUMIN w FIGURE REFINISHER AND REPAIRER RATIO 10/24/2024 Next Appt Details Follow Up: 2 Months, Reason: Provider Name:Claribel Pickett , 03/13/2025 09:00:00 AM, [address] [place], [address], Provider Name:Morteza Calles, 06/25/2025 12:00:00 PM, [address] [place] [address], [address], Progress Notes * Elli LINDSEY LouDOB: [birth year] (78 yo F)Acc No.[id number]:10/24/2024 New Patient Patient: Elli LEUNG Provider: Amanda Calles MD :1945 A ge:78 Y S ex:Female Date:10/24/2024 Address:[address] [place], [place] [id number] Pcp:Adi Sal NP Check In:03:18 PM ESTCheck O ut:03:55 PM EST Subjective: * Chief Complaints: * A KI * HPI: G eneral: 78 yo F with htn and CKD, here for her first office visit.? Her most recent Cr was in the CKD 3a range at 1.07. Her urine studies show no evidence of albuminuria or hematuria. Her last UA had 10-20 WBCs and a few bacteria, no UTI symptoms noted recently. Her electrolytes and PTH are normal. She has mild anemia with a Hgb of 10.7, normal MCV, no recent evidence of bleeding. She takes lisinopril, HCTZ, and spironolactone for management of her htn. She denies issues with CHF. She does note occasional LE edema. She denies any recent NSAID use, she no longer takes celebrex on a regular basis. She is not diabetic. She denies history of kidney stones. She denies previous episodes of ROSEY.? She denies family history of kidney disease. * ROS: G eneral/Constitutional: Recent weight loss d enies. C hange in appetite d enies. C ardiovascular: PND d enies. O rthopnea d enies. S welling of legs, ankles, or feet m ild. C hest pain d enies. S hortness of breath d enies.? G astrointestinal: Abdominal pain d enies. N ausea d enies. V omiting d enies. G enitourinary: Nocturia d enies. U rinary incontinence d enies. F requent UTI's d enies. R enal Colic ?denies. W eakstream d enies. D ysuria d enies . H ematuria d enies.?Blood in urine d enies. F requent urination d enies. M usculoskeletal: Joint stiffness d enies. W eakness d enies. ? N eurologic: Dizziness d enies. F ainting d enies. H eadache?denies. T ingling/Numbness d enies. 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 Modified On:02/04/2023 Status:confirmed K29.50 Mild chronic gastrit is Modified On:02/04/2023 Status:confirmed Q43.8 Tortuous colon Modified On:02/04/2023 Status:confirmed K57.30 Sigmoid diverticulos is Modified On:02/04/2023 Status:confirmed N18.32 Chronic kidney disea se, stage 3b Modified On:10/10/2024U Status:confirmed I10 Asymptomatic hyperte nsion Modified On:10/24/2024 Status:confirmed N18.31 Chronic kidney disea se, stage 3a Modified On:10/24/2024 Status:confirmed * Medical History: * Surgical History: H istory of musculoskeletal procedures leg 2006 History of section History of tonsillectomy History of cataract surgery 2006 History of appendectomy 1963 History of hysterectomy 1973 History of breast lumpectomy was performed 04/02/2014 right ER positive OR Negative Her2 Negative Stage [id number] * Hospitalization/Major Diagno stic Procedure: s ee above * Family History: F ather: . M other: . M igrated Family History:: Family history of breast cancer grandmother;Family history of cancer sister leukemia;Family history of kidney disease father;Family history of heart disease mother father brother;. * Social History: T obacco Use: T obacco Use/Smoking P atient is a n onsmoker. * Medications: T akingARIPiprazole 2 MG Tablet 1 tablet Orally Once [...] Tablet 1 tablet Orally Once a day Spironolactone 25 MG Tablet 1 tablet Orally [...] morning meal Orally Once a day Taking Lisinopril- hydroCHLOROthiazide 20-25 MG Tablet 1 tablet Orally Once a day Taking Multivitamin Taking Pravastatin Sodium 20 MG Tablet 1 tablet Orally Once a day Taking Spironolactone 25 MG Tablet 1 tablet Orally daily Not-Taking/PRNALPRAZolam 1 MG Tablet 1 tablet Orally daily Anastrozole 1 mg tablet 1 tablet(s) DAILY , Notes to Pharmacist: Take one tablet dailyAspirin 81 mg DAILY CeleBREX(Celecoxib) capsule capsule DAILY Citalopram Hydrobromide 20 MG Tablet 1 tablet Orally Once a day Femara(Letrozole) 2.5 mg tablet 1 tablet(s) DAILY Fenofibrate Micronized Lisinopril Once a day PARoxetine Mesylate 7.5 MG Capsule 1 capsule at bedtime Orally Once a day Percocet(oxyCODONE-Acetaminophen) 10-325 MG Tablet 1 tablet as needed Orally every 6 hrs predniSONE 20 MG Tablet 1 tablet with food or milk Orally BID Prevacid DAILY Prochlorperazine Maleate 10 mg tablet 1 tablet(s) Q6-8H tiZANidine HCl 2 MG Tablet 1 tablet at bedtime as needed Orally Once a day traMADol HCl 50 mg tablet tablet valACYclovir HCl 1 GM Tablet 2 tablet Orally BID Zestoretic(Lisinopril-hydroCHLOROthiazide) 10-12.5 MG Tablet 1 tablet Orally Once a day Medication List reviewed and reconciled with the patientNot-Taking/PRN ALPRAZolam 1 MG Tablet 1 tablet Orally daily Not-Taking/PRN Anastrozole 1 mg tablet 1 tablet(s) DAILY , Notes to Pharmacist: Take one tablet dailyNot-Taking/PRN Aspirin 81 mg DAILY Not-Taking/PRN CeleBREX(Celecoxib) capsule capsule DAILY Not-Taking/PRN Citalopram Hydrobromide 20 MG Tablet 1 tablet Orally Once a day Not-Taking/PRN Femara(Letrozole) 2.5 mg tablet 1 tablet(s) DAILY Not-Taking/PRN Fenofibrate Micronized Not- Taking/PRN Lisinopril Once a day Not-Taking/PRN PARoxetine Mesylate 7.5 MG Capsule 1 capsule at bedtime Orally Once a day Not-Taking/PRN Percocet(oxyCODONE-Acetaminophen) 10- 325 MG Tablet 1 tablet as needed Orally every 6 hrs Not-Taking/PRN predniSONE 20 MG Tablet 1 tablet with food or milk Orally BID Not-Taking/PRN Prevacid DAILY Not-Taking/PRN Prochlorperazine Maleate 10 mg tablet 1 tablet(s) Q6-8H Not-Taking/PRN tiZANidine HCl 2 MG Tablet 1 tablet at bedtime as needed Orally Once a day Not-Taking/PRN traMADol HCl 50 mg tablet tablet Not-Taking/PRN valACYclovir HCl 1 GM Tablet 2 tablet Orally BID Not-Taking/PRN Zestoretic(Lisinopril-hydroCHLOROthiazide) 10-12.5 MG Tablet 1 tablet Orally Once a day Medication List reviewed and reconciled with the patient * Allergies: p aper tape: Allergyno[Allergies Verified] Objective: * Vitals: W t:185.0lbs, Ht: 60 in, BP:134/82mm Hg, BMI:36.13Index, Ht-cm: 152.4 cm, Wt-k.92 kg. * Examination: G eneral Examinations: GENERAL APPEARANCE: a wake, alert, oriented to time, place, and person, well nourished, no pallor. NECK: n ormal, no carotid bruit. LUNGS: c lear to auscultation bilaterally. CHEST: n ormal. CARDIO: n ormal, regular rate and rhythm, S1, S2 normal, no rub. ABDOMEN: s oft, nontender, nondistended, normal bowel sounds present. SKIN: g ood turgor. EXTREMITIES: n o clubbing, cyanosis, or edema. NEUROLOGIC: n o focal deficit, mild intention tremor. ? Assessment: * Assessment: 1. A nemia, unspecified - D64.9 (Primary) 2 . A symptomatic hypertension - I10 3 . C hronic kidney disease, stage 3a - N18.31 Plan: * Treatment: * Procedure Codes: * Preventive Medicine: Screenings/Counseling: F ALL RISK SCREENING F all Risk Assessment: N o falls in the past year, A re you afraid of falling? N o. * Follow Up: 2 Months * * Sign off status: Completed Visit Status: C HK (Check Out) true * Provider: Amanda Calles MD Date: 0 10/24/2024 Generated for Elvia ponce/Elvia/Keshaitting on: 0 01/15/2025 07:01 AM EDT History and Physical Notes * HPI (History of Present Illness) Category Sub-Category Detail Notes Category Not es General 78 yo F with ht n and CKD, here for her first office visit. Her most recent Cr was in the CKD 3a range at 1.07. Her urine studies show no evidence of albuminuria or hematuria. Her last UA had 10-20 WBCs and a few bacteria, no UTI symptoms noted recently. Her electrolytes and PTH are normal. She has mild anemia with a Hgb of 10.7, normal MCV, no recent evidence of bleeding. She takes lisinopril, HCTZ, and spironolactone for management of her htn. She denies issues with CHF. She does note occasional LE edema. She denies any recent NSAID use, she no longer takes celebrex on a regular basis. She is not diabetic. She denies history of kidney stones. She denies previous episodes of ROSEY. She denies family history of kidney disease. Examination Category Sub-Category Detail Notes Category Not es General Examinations GENERAL APPEARANCE: awake, alert, oriented to time, place, and person, well nourished, no pallor NECK: normal, no carotid b ruit CARDIO: normal, regular rate and rhythm, S1, S2 normal, no rub CHEST: normal LUNGS: clear to auscultatio n bilaterally ABDOMEN: soft, nontender, non distended, normal bowel sounds present NEUROLOGIC: no focal deficit, mi ld intention tremor SKIN: good turgor EXTREMITIES: no clubbing, cyanosi s, or edema
--- OUTSIDE RECORDS SUMMARY | 2025-01-15 07:01 | XMS_ITS | Encounter Summary ---
Author Organization [employer] Address [facility] [id number] [address] [place] [address] Care Team Providers Care Curriculum Development Coordinator Name Role Phone Gustavo, Chanell DIE DEVELOPER-HAMMER MILL OPERATOR Primary Care Provider +1- [phone] Reason for Visit * Reason Comments Med Refill Encounter Details Date Type Department Care Team (Late st Contact Info) Description 07/28/2021 Refill [facility] [address] [place] [phone] Roberto Gee MD [address] [place] [address] [address] [place] [address] Social History Tobacco Use Types Packs/Day Years Used Date Smoking Tobacco: Never Smokeless Tobacco: Never Alcohol Use Standard Drinks/Week Comments Yes 1 (1 standard drink = 0.6 oz pur e alcohol) Social Connection and Isolat ion Panel [NHANES] Answer Date Recorded Frequency of Communication w ith Friends and Family Three times a week 03/09/2019 Frequency of Social Gatherin gs with Friends and Family Three times a week 03/09/2019 Attends Buddhism Services More than 4 times per year 03/09/2019 Active Member of Clubs or Organizations Yes 03/09/2019 Attends Club or Organization Meetings 1 to 4 adam es per year 03/09/2019 Marital Status 03/09/2019 AUDIT-C Answer Date Recorded Frequency of Alcohol Consumption Monthly or less 03/09/2019 Average Number of Drinks Not on file 019 Frequency of Binge Drinking Never 02/13 Overall Financial Resource Strain (CARDIA) Answe r Date Recorded Difficulty of Paying Living Expenses Not hard at all 03/09/2019 PHQ-2 Answer Date Recorded Total Score 8 02/18/2021 [facility] [place] [facility] - Occupational Stress Questionnaire Answer Date Recorded Feeling of Stress To some extent 03/09/2019 Exercise Vital Sign Answer Date Recorde d Days of Exercise per Week 7 days 2018 Minutes of Exercise per Session 50 min 03/09/2019 PRAPARE - Transportation Answer Date Re corded Lack of Transportation (Medical) No 03/09/2019 Lack of Transportation (Non-Medical) No 03/09/2019 Childcare Answer Date Recorded Childcare No 03/09/2019 Employment Answer Date Recorded Employment No 03/09/2019 Purpose - Life Answer Date Recorded Purpose and direction in life Unknown Education Answer Date Recorded What is the highest level of school you have completed or the highest degree you have received? GED or equivalent Comments No Sex and Gender Information Value Date Recorded Sex Assigned at Not on file Legal Sex Female 10:04 PM EDT Gender Identity Not on file Sexual Orientation Not on file documented as of this encounter Plan of Treatment Not on file documented as of this encounter Visit Diagnoses Not on filedocumented in this encounter Additional Health Concerns Assessment Noted Time PHQ-9 Depression Total Score: 8 02/19/20 21 12:00 PM EDT documented as of this encounter Care Teams Curriculum Development Coordinator Relationship Specialty Start Date End Date Chanell Chen APRN-FNP [address] [place] [address] PCP - General Family Medicine 05/08/24 documented as of this encounter
--- OUTSIDE RECORDS SUMMARY | 2025-01-15 07:01 | XMS_ITS | Encounter Summary ---
Author Organization [facility] Address [address] [place] [address] Care Team Providers Care Proced Tech Name Role Phone Unallocated, Noms Provider Primary Care Provi ct Encounter Details Date Type Department Care Team ([facility] st Contact Info) Description 05/21/2021 [facility] [address] [facility] [place] [phone] Kimberlee Garza, [facility] [address] [facility] [place] [address] Social History Tobacco Use Types Packs/Day Years Used Date Smoking Tobacco: Never Assessed Comments Unknown Sex and Gender Information Value Date Recorded Sex Assigned at Not on file Legal Sex Female 11:21 PM EDT Gender Identity Not on file Sexual Orientation Not on file documented as of this encounter Plan of Treatment Not on file documented as of this encounter Visit Diagnoses Not on filedocumented in this encounter Care Teams Proced Tech Relationship Specialty Start Date End Date Unallocated, Noms Provider, [place] [address] PCP - General Family Medicine 09/14/24 documented as of this encounter
--- OUTSIDE RECORDS SUMMARY | 2025-01-15 07:01 | XMS_ITS | Encounter Summary ---
Author Organization [employer] Address [facility] [id number] [address] [place] [address] Care Team Providers Care Leadership Intern Name Role Phone Gustavo, Chanell HOT STICK WORKER-ACTIVATED SLUDGE OPERATOR Primary Care Provider +1- [phone] Reason for Visit * Reason Comments Med Refill Encounter Details Date Type Department Care Team (Late st Contact Info) Description 04/28/2021 Refill [facility] [address] [place] [phone] Roberto Gee MD [address] [place] [address] [place] [address] Social History Tobacco Use Types Packs/Day [...] Family Three times a week 03/09/2019 Attends Druze Services More than 4 times per year [...] Answer Date Recorded Total Score 8 02/18/2021 [facility] [place] of Occupat ional Health - Occupational Stress [...] documented as of this encounter Care Teams Leadership Intern Relationship Specialty Start Date End Date Chanell Chen APRN-FNP [address] [place] [address] PCP - General Family Medicine 05/08/24 documented as of this encounter
--- OUTSIDE RECORDS SUMMARY | 2025-01-15 07:01 | XMS_ITS | Encounter Summary ---
Author Organization [employer] Address [facility] [id number] [address] [place] [address] Care Team Providers Care Enzyme Chemist Name Role Phone Chanell Chen Primary Care Provider +1- [phone] Reason for Visit * Reason Comments Med Refill Encounter Details Date Type Department Care Team (Late st Contact Info) Description 10/15/2016 Refill [facility] [address] [place] [phone] Roberto Gee MD [address] [place] [phone] Social History Tobacco Use Types Packs/Day Years Used Date Smoking Tobacco: Never Smokeless Tobacco: Never Alcohol Use Standard Drinks/Week Comments Yes 1 (1 standard drink = 0.6 oz pur e alcohol) Comments No Sex and Gender Information Value [...] Assessment Noted Time PHQ-9 Depression Total Score: 0 06/09/20 16 10:00 AM EST documented as of this encounter Care Teams Enzyme Chemist Relationship Specialty Start Date End Date Chanell Chen APRN-FNP [address] [place] [address] PCP - General Family Medicine 05/08/24 documented as of this encounter
--- OUTSIDE RECORDS SUMMARY | 2025-01-15 07:01 | XMS_ITS | Encounter Summary ---
Author Organization [employer] Address [facility] [id number] [address] [place] [address] Care Team Providers Care Tenter Feeder Name Role Phone Chanell Chen RN SOCIAL SERVICES-CABIN CLEANING SUPERVISOR Primary Care Provider +1- [phone] Reason for Visit * Reason Onset Date Comments Med Refill 05/24/2020 Encounter Details Date Type Department Care Team (Late st Contact Info) Description 05/24/2020 Refill [facility] [address] [place] [phone] Roberto Gee MD [address] [place] [address] [address] [place] [phone] Chronic right-sided low back pain with right-sided sciatica; Malignant neoplasm of areola of right breast in female, unspecified estrogen receptor status ([facility]) Social History Tobacco Use Types Packs/Day Years [...] Family Three times a week 03/09/2019 Attends Pentecostal Services More than 4 times per year [...] 03/09/2019 PHQ-2 Answer Date Recorded Total Score 3 08/28/2019 [facility] Occupat ional [facility] [place] - Occupational Stress Questionnaire Answer Date Recorded [...] Employment Answer Date Recorded Employment No 03/09/2019 Education Answer Date Recorded What is the highest level of school you have completed or the highest degree you have received? GED or equivalent Comments No Sex and Gender Information Value Date Recorded Sex Assigned at Not on file Legal Sex Female 10:04 PM EDT Gender Identity Not on file Sexual Orientation Not on file documented as of this encounter Miscellaneous Notes * Telephone Encounter - Marianna Rivera - 05/24/2020 11:23 AM EST ROBERTO GEE MD Patient called and requested a refill of oxyCODONE-acetaminophen (PERCOCET) 10- 325 mg per tablet medication. 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
--- OUTSIDE RECORDS SUMMARY | 2025-01-15 07:01 | XMS_ITS | Encounter Summary ---
Author Organization [employer] Address [facility] [id number] [address] [place] [address] Care Team Providers Care Salad Chef Name Role Phone Chanell Chen Primary Care Provider +1- [phone] Reason for Visit * Reason Comments Med Refill Encounter Details Date Type Department Care Team (Late st Contact Info) Description 12/29/2016 Refill [facility] [address] [place] [phone] Roberto Gee MD [address] [place] [address] Social History Tobacco Use Types Packs/Day [...] documented as of this encounter Care Teams Salad Chef Relationship Specialty Start Date End Date Chanell Chen APRN-FNP [address] [place] [address] PCP - General Family Medicine 05/08/24 documented as of this encounter
--- OUTSIDE RECORDS SUMMARY | 2025-01-15 07:01 | XMS_ITS | Encounter Summary ---
Author Organization [facility] Address [address] [place] [address] Care Team Providers Care Ambulatory Analyst Name Role Phone Unallocated, Noms Provider Primary Care Provi ct Encounter Details Date Type Department Care Team ([facility] st Contact Info) Description 05/21/2021 Abstract [facility] [address] [facility] [place] [phone] Kimberlee Garza, [facility] [address] [facility] [place] [address] Social History Tobacco Use Types Packs/Day Years [...] on filedocumented in this encounter Care Teams Ambulatory Analyst Relationship Specialty Start Date End Date Unallocated, Noms Provider, [place] [address] PCP - General Family Medicine 09/14/24 documented as of this encounter
--- OUTSIDE RECORDS SUMMARY | 2025-01-15 07:01 | XMS_ITS | Encounter Summary ---
Author Organization [facility] Address [facility] [id number] [address] [place] [address] Care Team Providers Care Machinist Set Up Name Role Phone Chanell Chen HOME IMPROVEMENT INSTALLER-HVAC SERVICE TECHNICIAN Primary Care Provider +1- [phone] Encounter Details Date Type Department Care Team (Late st Contact Info) Description 09/27/2020 [facility] [address] [place] [phone] External, Scanning Provider Social History Tobacco Use Types Packs/Day Years [...] Family Three times a week 03/09/2019 Attends Yarsanism Services More than 4 times per year [...] Answer Date Recorded Total Score 3 08/28/2019 [facility] [place] [facility] Occupat ional Health - Occupational Stress [...] on file documented as of this encounter Procedures Procedure Name Priority Date/Time Associated Diagnosis Comments VASC VENOUS DUPLEX LOWER RIGHT Routine 09/26/2020 documented in this encounter Results * Vas venous duplex lwr single right (09/26/2020) Anatomical Region Laterality Modality Vascular Right Ultrasound us Scanning Provider External CV VASCULAR ORDERABLE S Final Result documented in this encounter Visit Diagnoses Not on filedocumented in this encounter Additional Health Concerns Assessment Noted Time PHQ-9 Depression Total Score: 3 08/28/19 20 1:00 PM EDT documented as of this encounter Care Teams Machinist Set Up Relationship Specialty Start Date End Date Chanell Chen APRN-FNP [address] [place] [address] PCP - General Family Medicine 05/08/24 documented as of this encounter
--- OUTSIDE RECORDS SUMMARY | 2025-01-15 07:01 | XMS_ITS | Patient Health Record ---
Author Organization The [facility] [place] Address [address] [place] [address] Care Team Providers Care Weight Loss Sales Consultant Name Role Phone Adi Sal NP Primary Care Provider Unavailab barak DavidsontinMorteza Unavailable [phone] Claribel Pickett Unavailable [phone] Allergies Allergen (clinical drug ingredient) Drug/Non Drug Allergy documented on EMR Reaction Allergy Type Onset Date Status paper tape (uncoded) Unknown Allergy Active Results Component Value Reference Range Notes IRON AND TIBC (Not yet revie wed by provider) Interpretation: Performing Lab: Notes/Report: The [facility] , Iron 96.0 50.0-170.0 ug/dL Total Iron Binding Capacity 354.0 250.0-450.0 u g/dL Percent Iron Saturation 27.1 Performing Lab: see note ML - [facility] LB URIC ACID SERUM Reviewed date:12/21/2024 10:22:42 AM Interpretation: Performing Lab: Notes/Report: The [facility] , Uric Acid 8.6 2.6-6.0 mg/dL Performing Lab: see note ML - The [facility] LB UA RANDOM W or MICROSCOPIC Reviewed date:12/21/2024 12:22:55 PM Interpretation: Performing Lab: Notes/Report: [facility] , Color Urine LT. YELLOW YELLOW Clarity Urine CLEAR CLEAR Specific [place] Urine 1.020 1.005-1.025 pH Urine 6.0 5.0-9.0 Protein Urine NEGATIVE NEG/TRACE mg/dL Glucose Urine UA NEGATIVE NEGATIVE mg/dL Bilirubin Urine NEGATIVE NEGATIVE Ketones Urine NEGATIVE NEGATIVE mg/dL Blood Urine TRACE-I NEGATIVE Nitrite Urine NEGATIVE NEGATIVE Urobilinogen Urine 0.2 0.2-1.0 EU/dL Leukocyte Esterase Urine SMALL NEGATIVE WBC Urine 2-5 NONE SEEN #/HPF RBC Urine 2-5 0-2 #/HPF Bacteria Urine LARGE NONE SEEN #/HPF Mucus Urine NONE SEEN NONE SEEN Squamous Epithelial Cell Urine FEW NONE/RARE #/LPF Crystals Seen? None Seen None Seen #/HPF Cast Seen? NONE SEEN NONE SEEN #/LPF Performing Lab: see note ML - [facility] RENAL FUNCTION PANEL Reviewed date:12/21/2024 12:22:59 PM Interpretation: Performing Lab: Notes/Report: [facility] , Sodium 141 136-145 mmol/L Potassium 5.1 3.5-5.1 mmol/L Chloride 107 98-107 mmol/L Carbon Dioxide 24.0 21.0-32.0 mmol/L Anion Gap 15.1 Glucose 102 74-106 mg/dL Blood Urea Nitrogen 24.0 7.0-18.0 mg/dL Creatinine 1.13 0.55-1.02 mg/dL Estimated GFR ( Suzanne 56 >=60 mL/min/1.73m 2 Estimated GFR (Non- Chanel 46 >=60 mL/min/1.73m 2 BUN Creatinine Ratio 21.2 Calcium 9.2 8.5-10.1 mg/dL Phosphorus 3.5 2.6-4.7 mg/dL Albumin Level 3.5 3.4-5.0 g/dL Performing Lab: see note ML - [facility] MICROALB CREAT RATIO RANDOM Reviewed date:12/21/2024 10:22:52 AM Interpretation: Performing Lab: Notes/Report: [facility] , Microalbumin Urine Random <1.3 <=30.0 mg/dL Creatinine Urine Random 96.88 20.00-300.00 mg/d L Performing Lab: see note ML - [facility] MAGNESIUM Reviewed date:12/21/2024 12:23:17 PM Interpretation: Performing Lab: Notes/Report: [facility] , Magnesium 1.8 1.8-2.4 mg/dL Performing Lab: see note - [facility] Vitamin B12 (Not yet reviewe d by provider) Interpretation: Performing Lab: Notes/Report: [facility] , Vitamin B12 290 268-9465 pg/mL Performed at: CB - [facility] [address] [id number] Sounding Device Operator: Karson Haque PhD, Phone: [phone] Performing Lab: see note - [facility] LB VITAMIN D 25 [place] (Not yet rev iewed by provider) Interpretation: Performing Lab: Notes/Report: [facility] , Vitamin D 62.2 <20 ng/mL Vit D deficient 20-<30 ng/mL Vit D insufficient 30-100 ng/mL Vit D sufficient >100 ng/mL Potential Toxicity Performing Lab: see note ML - [facility] LB FOLATE (Not yet reviewed by provider) Interpretation: Performing Lab: Notes/Report: [facility] , Folate 35.00 8.60-58.90 ng/mL Performing Lab: see note - [facility] LB FERRITIN (Not yet reviewed b y provider) Interpretation: Performing Lab: Notes/Report: [facility] , Ferritin 41.0 8.0-252.0 ng/mL Performing Lab: see note ML - [facility] LB CBC no Diff (Hemogram) Reviewed date:12/19/2024 08:43:42 AM Interpretation: Performing Lab: Notes/Report: [facility] , White Blood Count 5.7 4.0-11.0 10 3/uL Red Blood Count 2.90 4.20-5.40 10 6/uL Hemoglobin 9.7 12.0-16.0 g/dL Hematocrit 29.5 36.0-48.0 % Mean Corpuscular Volume 101.7 81.0-99.0 fL Mean Corpuscular Hemoglobin 33.4 26.7-34.0 pg Mean Corpuscular HGB Conc 32.9 29.9-35.2 g/dL Red Cell Distribution Width 13.0 11.0-15.0 % Platelet Count 190 150-450 10 3/uL Mean Platelet Volume 9.8 9.5-13.5 fL Performing Lab: see note ML - [facility] LB Reason For Referral No Information Medications Medication SIG (Take, Route, Frequency, Duration) Notes Start Date End Date Status Femara 2.5 mg 1 tablet(s) DAILY for 30 days 12/18/2014 Not-Taking Fenofibrate Micronized Not-Taking Lisinopril Once a day Not-Taki ng PARoxetine Mesylate 7.5 MG 1 capsule at bedtime Orally Once a day Not-Taking CeleBREX capsule DAILY Not-T mirthag Citalopram Hydrobromide 20 MG 1 tablet Orally Once a day Not-Taking ARIPiprazole 2 MG 1 tablet Orally Once a day Active Percocet 10-325 MG 1 tablet as needed Orally every 6 hrs Not-Taking predniSONE 20 MG 1 tablet with food or milk Orally BID Not-Taking Prevacid DAILY Not-Stiven g Prochlorperazine Maleate 10 mg 1 tablet(s) Q6-8H for 30 days 05/04/2014 Not-Taking Iron (Ferrous Sulfate) 325 (65 Fe) MG 1 tablet Orally daily Active Zestoretic 10-12.5 MG 1 tablet Orally Once a day Not-Taking Lansoprazole 15 MG 1 capsule 1/2 to 1 hour before morning meal Orally Once a day Active Lisinopril-hydroCHLOROth iazide 20-25 MG 1 tablet Orally Once a day Active Multivitamin Active tiZANidine HCl 2 MG 1 tablet at bedtime as needed Orally Once a day Not-Taking traMADol HCl 50 mg tablet Not-Taking Cetirizine HCl 10 MG 1 tablet Orally Once a day Active valACYclovir HCl 1 GM 2 tablet Orally BID for 2 days Not-Taking Aspirin 81 mg DAILY Not-T mirthag Pravastatin Sodium 20 MG 1 tablet Orally Once a day Active Spironolactone 25 MG 1 tablet Orally daily Active ALPRAZolam 1 MG 1 tablet Orally daily Not-Taking Anastrozole 1 mg 1 tablet(s) DAILY for 90 days Take one tablet daily 09/18/2014 Not-Taking Social History Tobacco Use: Social History Observation Description Date Details (start date - stop date) Never Smoker NA - NA Tobacco Use/Smoking Question Answer Notes Patient is a nonsmoker Problems Problem Type SNOMED Code ICD Code Onset Dates Problem Status W/U Status Risk Notes Problem 53521575 Iron deficiency anemia, unspecified (D50.9) Active confirmed Problem 183825222 Personal history of malignant neoplasm of breast (Z85.3) Active confirmed Problem Iron deficiency anemia due to chronic blood loss (463639352) Iron deficiency anemia due to chronic blood loss (D50.0) Active confirmed Problem 014598613 History of radiation therapy (Z92.3) Active confirmed Problem Diverticular disease of colon (182994720) Sigmoid diverticulosis (K57.30) Active confirmed Problem 585957242 Hematoma of amol st (N64.89) Active confirmed Problem Tortuous colon (51572912385089) Tortuous colon (Q43.8) Active confirmed Problem 144371206 History of cance r of right breast (Z85.3) Active confirmed Problem Essential hypertension (72538333) Asymptomatic hypertension (I10) Active confirmed Problem Atrophic gastritis (06622908) Mild chronic gastritis (K29.50) Active confirmed Problem Chronic kidney disease stage 3A (disorder) (405777276) Chronic kidney disease, stage 3a (N18.31) Active confirmed Problem 776001140 Chronic kidney disease, stage 3b (N18.32) Active confirmed Vital Signs Blood pressure diastolic 78 mm Hg 12/25/2024 Height 60 in 12/25/2024 Blood pressure systolic 126 mm Hg 12/25/2024 Weight 186.6 lbs 12/25/2024 BMI 36.44 kg/m2 12/25/2024 Encounters Encounter Location Date Provider Diagnosis [facility] [place] [address] [place] [address] 10/10/2024 Morteza Calles Chronic kidney disease, stage 3b N18.32 [facility] [address] [place] [address] 10/11/[address] [facility] [place] [id number] [place] [address] 12/25/2024 Morteza Calles Anemia, unspecified D64.9 ; Chronic kidney disease, stage 3a N18.31 and Asymptomatic hypertension I10 [facility] [address] [place] [address] 10/24/2024 Morteza Calles Anemia, unspecified D64.9 ; Asymptomatic hypertension I10 and Chronic kidney disease, stage 3a N18.31 [facility] [address] [place] [address] 01/18/2024 Claribel Pickett [facility] [address] [place] [address] 02/29/2024 Claribel Pickett [facility] [address] [place] [address] 09/05/2024 Claribel Pickett Assessments Encounter Date Diagnosis (ICD Code) Assessment Notes Treatment Notes Treatment Clinical Notes Section Notes 10/24/2024 Anemia, unspecified (ICD-10 - D64.9) 10/24/2024 Asymptomatic hypertension (ICD-10 - I10) 12/25/2024 Anemia, unspecified (ICD-10 - D64.9) 12/25/2024 Chronic kidney disease, stage 3a (ICD-10 - N18.31) 79 yo F with CKD 3a due to htn Continue FELIPE-I for management of BP No edema on exam today No UTI symptoms at this time, no need for abx She is encouraged to avoid all future NSAID use Encourage good oral daily hydration No evidence of proteinuria at this time F/U with hematology for anemia management Electrolytes and PTH are OK No obstructive issues on US F/U labs and BP check in 6 months 10/10/2024 Chronic kidney disease, stage 3b (ICD-10 - N18.32) 12/25/2024 Asymptomatic hypertension (ICD-10 - I10) 10/24/2024 Chronic [...] need for JUSTINA therapy Plan Of Treatment Pending Test Test Name Order Date CMP (COMPLETE METABOLIC PANEL) 8 CMP (COMPLETE METABOLIC PANEL) 8 UA (URINALYSIS, COMPLETE) 10/24/2024 UA (URINALYSIS, COMPLETE) 12/25/2024 UA (URINALYSIS, COMPLETE) 10/10/2024 ALBUMIN, BLOOD 10/10/2024 ALBUMIN, BLOOD 12/25/2024 ALBUMIN, BLOOD 10/24/2024 VITAMIN B12 LEVEL (COBALAMIN) 01/05/2018 FERRITIN 01/05/2018 FOLIC ACID (FOLATE) 01/05/2018 LDH 01/05/2018 MAGNESIUM 10/24/2024 MAGNESIUM 12/25/2024 MAGNESIUM 10/10/2024 IRON AND TIBC (WITH SAT) 01/05/2018 CBC NO DIFF 12/25/2024 CBC NO DIFF 10/24/2024 CREATININE, BLD W/GFR 06/28/2018 MICROALBUMIN with ALB/CREAT RATIO, URINE (MALB)) 10/10/2024 PHOSPHORUS 10/10/2024 PHOSPHORUS 10/24/2024 PHOSPHORUS 12/25/2024 PTH INTACT (PARATHYROID HORMONE) 025 PTH INTACT (PARATHYROID HORMONE) 025 RETICULOCYTE COUNT 01/05/2018 CBC WITH ONCO AUTO DIFF (HWP) 09/02/2017 CBC WITH ONCO AUTO DIFF (HWP) 01/05/2018 CBC WITH ONCO AUTO DIFF (HWP) 05/12/2018 URIC ACID 10/10/2024 URIC ACID 12/25/2024 URIC ACID 10/24/2024 VITAMIN D, 25 LEVEL (TOTAL) 12/25/2024 CT Chest/Abdomen/Pelvis w/contrast 07/05 US Renals and Bladder 10/24/2024 COMPREHENSIVE METABOLIC PANEL 05/27/2015 LDH 06/23/2018 LDH 02/17/2017 CBC AND AUTO DIFF 05/27/2015 VITAMIN B12 02/17/2017 HAPTOGLOBIN 02/17/2017 HAPTOGLOBIN 06/23/2018 OCCULT BLOOD FECES MULT 07/03/2018 OCCULT BLOOD FECES MULT 07/04/2018 OCCULT BLOOD FECES MULT 07/06/2018 IMMUNE FECAL OB 02/22/2017 US Head 08/06/2017 CBC AND AUTO DIFF * 09/10/2015 CBC AND AUTO DIFF * 11/26/2015 CBC AND AUTO DIFF * 03/09/2016 CBC AND AUTO DIFF * 06/23/2018 CBC AND AUTO DIFF * 11/28/2019 CBC AND AUTO DIFF * 06/01/2016 CBC AND AUTO DIFF * 12/03/2016 COMPREHENSIVE METABOLIC PANEL 12/03/2016 COMPREHENSIVE METABOLIC PANEL 06/01/2016 COMPREHENSIVE METABOLIC PANEL 03/09/2016 COMPREHENSIVE METABOLIC PANEL 11/26/2015 COMPREHENSIVE METABOLIC PANEL 09/10/2015 LIPID PROFILE 06/01/2016 IRON PROFILE (PATH [facility]) 02/17/2017 FERRITIN 02/17/2017 FOLIC ACID 02/17/2017 RETICULOCYTE COUNT 02/17/2017 TRANSFERRIN 11/28/2019 PATHOLOGIST REVIEW OF PERIPHERAL SMEAR 0 01/05/2018 RENAL PANEL 10/24/2024 CBC AUTO DIFF 01/12/2024 FERRITIN 01/12/2024 FERRITIN 09/04/2024 FOLATE 09/04/2024 IRON AND TIBC 01/12/2024 IRON AND TIBC 09/04/2024 LDH 01/12/2024 PROF 14(COMP METB) 01/12/2024 VITAMIN D 25 [place] 09/04/2024 Reticulocyte Pct Auto 01/12/2024 Erythropoietin (EPO), Serum 01/12/2024 Vitamin B12 09/04/2024 MICROALBUMIN w PROJECT ADMIN RATIO 10/24/2024 BMP (BASIC MET PANEL) w/eGFR CKD-EPI BMP (BASIC MET PANEL) w/eGFR CKD-EPI CBC WITH DIFF 10/10/2024 Next Appt Details Provider Name:Claribel Pickett , 03/13/2025 09:00:00 AM, [address] [place], [address], Provider Name:Morteza Calles, 06/25/2025 12:00:00 PM, [address] [place] [address], [phone], Insurance Providers Payer Name Payer Address Payer Phone Subscriber Number Group Number Insured Name Patient Relationship to Insured Coverage Start Date Coverage End Date [facility] [employer] [address] [address] [place] [address] [phone] [id number] Elli Hurtado Self - patient is the insured Medical (General) History Medical History History ICD Code History of arthritis History of glaucoma History of hypertension History of cataract surgery No history of cardiac defibrillator pres ent No history of cardiac pacemaker present History of cancer of right breast Z85.3 Surgical History Surgery Date(Month/Year) History of musculoskeletal procedures le g 2006 History of section History of tonsillectomy History of cataract surgery 2006 History of appendectomy 1963 History of hysterectomy 1973 History of breast lumpectomy was performed 04/02/2014 right ER positive [place] 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
--- OUTSIDE RECORDS SUMMARY | 2025-01-15 07:01 | XMS_ITS | Encounter Summary ---
Author Organization [employer] Address [id number] [address] [place] [address] Care Team Providers Care Campus Security Officer Name Role Phone Gustavo, Chanell DISPLAY MAKER-HORTICULTURAL FARM MANAGER Primary Care Provider [phone]- [phone] Reason for Visit * Reason Comments Med Refill Encounter Details Date Type Department Care Team (Late st Contact Info) Description 10/27/2021 Refill [facility] [address] [place] [phone] Roberto Gee MD [address] [place] [address] [address] [place] [phone] Social History Tobacco Use Types Packs/Day [...] Family Three times a week 03/09/2019 Attends [employer] [facility] More than 4 times per year [...] 03/09/2019 PHQ-2 Answer Date Recorded Total Score 0 08/18/2021 [facility] [place] of Occupat ional Health - Occupational Stress [...] Noted Time PHQ-9 Depression Total Score: 0 08/19/19 22 12:00 PM EST documented as of this encounter Care Teams Campus Security Officer Relationship Specialty Start Date End Date Chanell Chen APRN-FNP [address] [place] [address] PCP - General Family Medicine 05/08/24 documented as of this encounter
--- OUTSIDE RECORDS SUMMARY | 2025-01-15 07:01 | XMS_ITS | Encounter Summary ---
Author Organization [employer] Address [id number] [address] [place] [address] Care Team Providers Care Fishing Tool Supervisor Name Role Phone Chanell Chen Primary Care Provider [phone]- [phone] Reason for Visit * Reason Comments Med Refill Encounter Details Date Type Department Care Team (Late st Contact Info) Description 11/25/2016 Refill [facility] [address] [place] [phone] Roberto Gee MD [address] [place] [address] [address] [place] [id number] Benign essential HTN (Primary Dx) Social History Tobacco Use Types Packs/Day Years [...] as of this encounter Visit Diagnoses Diagnosis Benign essential HTN- Primary documented in this encounter Additional Health Concerns Assessment Noted Time PHQ-9 Depression Total Score: 0 06/09/20 16 10:00 AM EST documented as of this encounter Care Teams Fishing Tool Supervisor Relationship Specialty Start Date End Date Chanell Chen APRN-FNP [address] [place] [address] PCP - General Family Medicine 05/08/24 documented as of this encounter
--- OUTSIDE RECORDS SUMMARY | 2025-01-15 07:01 | XMS_ITS | Encounter Summary ---
Author Organization [facility] Address [address] [place] [address] Care Team Providers Care Electrical Prospector Name Role Phone Unallocated, Noms Provider Primary Care Provi ct Encounter Details Date Type Department Care Team ([facility] st Contact Info) Description 04/28/2021 Abstract [facility] [address] [facility] [place] [phone] Kimberlee Garza, [facility] [address] [facility] [place] [address] Social History Tobacco Use Types Packs/Day Years [...] on filedocumented in this encounter Care Teams Electrical Prospector Relationship Specialty Start Date End Date Unallocated, Noms Provider, [place] [address] PCP - General Family Medicine 09/14/24 documented as of this encounter
--- OUTSIDE RECORDS SUMMARY | 2025-01-15 07:01 | XMS_ITS | Patient Health Record ---
Author Organization Formerly [facility], 1928–1983 vices Address [address] [place], [place] [id number] Care Team Providers Care Veterinary Technology Instructor Name Role Phone Guillermina Frazier Primary Care Provider [phone] Brent Delarosa Unavailable [phone] Diane Coyle Unavailable [phone] Chanell Chen Unavailable [phone] Elizabeth Teixeira Unavailable [phone] Allergies No Known Allergies Results Component Value Reference Range Notes URINE CULTURE Reviewed date:04/17/2024 02:36:46 PM Interpretation: Performing Lab: Notes/Report: URINE CULTURE CULTURE/SENS,URINE REPORT STATUS: FINAL SOURCE: URINE CULTURE: >= 100,000 CFU/ML ESCHERICHIA COLI EC AMOX/CLAVULAN ACID SENSITIVE <=2 AMP/SULBACTAM SENSITIVE <=2 AMPICILLIN SENSITIVE <=2 CEFAZOLIN SENSITIVE <=4 CEFEPIME SENSITIVE <=1 CEFTAZIDIME SENSITIVE <=1 CEFTRIAXONE SENSITIVE <=1 CIPROFLOXACIN SENSITIVE <=0.25 ERTAPENEM SENSITIVE <=0.5 ESBL NEGATIVE GENTAMICIN SENSITIVE <=1 IMIPENEM SENSITIVE <=0.25 LEVOFLOXACIN SENSITIVE <=0.12 NITROFURANTOIN SENSITIVE <=16 PIPERACILLIN/TAZOB SENSITIVE <=4 TOBRAMYCIN SENSITIVE <=1 TRIMETH/SULFAMETH SENSITIVE <=20 FERDINAND=(MINIMUM INHIBITORY CONCENTRATION) VALUES IN mcg/ml VALUES IN MM ARE PERFORMED BY HUDSON PANDA DISC DIFFUSION METHOD * DENOTES STREPTOMYCIN HIGH LEVEL For Staphylococci,penicillin susceptible organisms are susceptible to other B-lactam agents with established clinical efficacy for staphylococcal infections. Oxacillin(or cefoxitin)results can be applied to the other penicillinase-stable penicillins. For agents with established clinical efficacy and considering site of infection and appropriate dosing, oxacillin susceptible Staphylococci can be considered susceptible to B-lactam combination agents, oral cephems, parenteral cephems including cephalosporins I,II,III and IV and the carbapenems. Oxacillin resistant Staphylococci are currently resistant to all available B-lactam antimicrobial agents with the exception of ceftaroline. For Pseudomonas species, there are currently no CLSI guidelines for interpretation of trimethoprim sulfamethoxazole against this organism and therefore, it will not be reported. For Enterococcus species, aminoglycosides, cephalosporins, clindamycin and trimethoprime sulfamethoxazole are not effective clinically and will not be reported. KNEE RT 3 VWS Reviewed date:01/27/2024 08:39:01 AM Interpretation: Performing Lab: Notes/Report: RESULTS BELOW CLINICAL INFORMATION: Comprehensive Metabolic Pane l Reviewed date:08/10/2024 10:34:45 PM Interpretation: Performing Lab: Notes/Report: , [facility] Sodium 140 136-145 mmol/L Potassium 4.7 3.5-5.1 mmol/L Chloride 105 98-107 mmol/L Carbon Dioxide 25.0 21.0-32.0 mmol/L Anion Gap 14.7 Glucose 98 74-106 mg/dL Blood Urea Nitrogen 28.0 7.0-18.0 mg/dL Creatinine 1.22 0.55-1.02 mg/dL Estimated GFR ( Suzanne 52 >=60 mL/min/1.73m 2 Estimated GFR (Non- Chanel 43 >=60 mL/min/1.73m 2 BUN Creatinine Ratio 23.0 Calcium 9.5 8.5-10.1 mg/dL Bilirubin Total 0.4 0.2-1.0 mg/dL Aspartate Amino Transferase 16 15-37 U/L Alanine Aminotransferase 12 14-59 U/L Alkaline Phosphatase 69 46-116 U/L Total Protein 6.7 6.4-8.2 g/dL Albumin Level 3.7 3.4-5.0 g/dL Globulin 3.0 Albumin Globulin Ratio 1.2 Performing Lab: see note ML - [facility] LB Lipid Panel Reviewed date:08/10/2024 10:34:45 PM Interpretation: Performing Lab: Notes/Report: [facility] , Triglycerides 131 <=150 mg/dL Cholesterol 137 <=200 mg/dL HDL Cholesterol 53 40-60 mg/dL > or =60 mg/dl - LOW CARDIOVASCULAR RISK <40 mg/dl - HIGH CARDIOVASCULAR RISK LDL Cholesterol Calculated 57.8 <100 mg/dl OPTIMAL 100-129 mg/dl NEAR OR ABOVE OPTIMAL 130-159 mg/dl BORDERLINE HIGH 160-189 mg/dl HIGH >190 mg/dl VERY HIGH VLDL CHOLESTEROL 26.2 Chol HDL Ratio 2.6 3.3 - 4.4 LOW RISK 4.4 - 7.1 AVERAGE RISK 7.1 - 11.0 MODERATE RISK >11.0 HIGH RISK Performing Lab: see note ML - [facility] LB URINALYSIS - REFLEX CULTURE/ SENS Reviewed date:04/17/2024 02:37:00 PM Interpretation: Performing Lab: Notes/Report: UNLESS OTHERWISE INDICATED, ALL TESTING PERFORMED AT: [employer] [employer]. [address] [place] [address] MOVER: AZUL GARCIA M.D. CLIA NUMBER [id number] CAP ACCREDITATION AUID [id number] Changes in testing location may be associated with reference range changes for a number of analytes. Please review reference intervals carefully. PH 7.0 5.0-8.0 SP GRAVITY 1.014 1.005-1.030 APPEARANCE CLEAR CLEAR COLOR YELLOW YELLOW PROTEIN NEGATIVE NEGATIVE GLUCOSE NEGATIVE NEGATIVE KETONES NEGATIVE NEGATIVE BILIRUBIN NEGATIVE NEGATIVE OCCULT BLOOD NEGATIVE NEGATIVE LEUKO LADI 2+ NEGATIVE NITRITE POSITIVE NEGATIVE UROBILINOGEN <2 <2 mg/dL WBC 21-50 0-5 HPF RBC 0-2 0-2 HPF EPI CELL 6-10 NONE HPF BACTERIA 3+ NONE HYALINE CASTS NONE NONE LPF Urine Dip Reviewed date:04/11/2024 09:32:02 AM Interpretation: Performing Lab: Notes/Report: Bilirubin - Occult Blood +- Glucose - Ketones - WBC 2+ Nitrite + Ph 6.5 Protein - Specific [place] 1.015 Color yellow Appearance cloudy Reason For Referral Reason evaluation / MRI / a ppropriate therapy Diagnosis 1 Right medial knee pa in (M25.561) Referral Organization [facility] Referring Provider First Name Brent Referring Provider Last Name Isaura Referring Provider Speciality Physician Top And Seat Cover Fitter Referred Provider [facility] Referred Provider Specialty Orthopedics Referral Priority Routine Reason Please eval & treat Diagnosis 1 Stage 3b chronic kid joanna disease (N18.32) Referral Organization Main Referring Provider First Name Guillermina Referring Provider Last Name [facility] Referred Provider [facility] Referred Provider Specialty Nephrology General Notes Neha Rosado 08/2024 10:35:17 AM >Pt. called for information, provided. Pt. plans to call to get scheduled. , Lady Mosqueda 08/14/2024 04:20:12 PM >pt called, states she cannot get into this referral until november. pt hoping that she can get a referral for somewhere else to see if she can get in quicker., Lady Mosqueda 08/14/2024 04:21:03 PM >instructed pt to contact insurance to find an in network provider and contact office once pt has the details of the new referral provider. pt stated that she would do that, Marsha Villa 09/05/2024 08:39:47 AM >{ {TOFIRSTNAME}} This is [facility] following up on an outstanding referral that was ordered by your provider. Please call our office at , so we can _update our records., Gonzales Singh 10/12/2024 11:23:53 AM >{ {TOFIRSTNAME}} This is [facility] following up on an outstanding referral that was ordered by your provider. Please call our office at , so we can _update our records. Referral Priority Routine Referral Appointment Date 11/12/2024 Medications Medication SIG (Take, Route, Frequency, Duration) Notes Start Date End Date Status Multivitamin - 1 tablet Orally Once a day Active Lansoprazole 15 MG 1 capsule before a meal Orally Once a day Active Misc Natural Products - as directed Orally [employer] Iron Blood Builder Active Lisinopril-hydroCHLORO thiazide 20-25 MG 1 tablet Orally Twice a day; Duration: 90 days Active Nitrofurantoin Monohyd Macro 100 MG 1 capsule with food Orally every 12 hrs; Duration: 5 days 04/11/2024 Not-Taking Iron otc Active Levocetirizine Dihydrochloride 5 MG 1 tablet in the evening Orally Once a day Not-Taking Pravastatin Sodium 20 MG 1 tablet Orally Once a day; Duration: 90 days Active Spironolactone 25 MG 1 tablet Orally Active Colchicine 0.6 MG TAKE 2 TABLETS BY MOUTH NOW THEN 1 TABLET ONE HOUR LATER - REPEAT IN 3 DAYS IF NEEDED; Duration: 3 Not-Taking Motrin Active Cetirizine HCl 10 MG 1 tablet Orally Once a day Active ALPRAZolam 1 MG 1 tablet Orally once a day Active predniSONE 20 MG 1 tablet Orally twice daily; Duration: 7 days As needed 06/08/2024 Active Citalopram Hydrobromide 20 MG 1 tablet Orally Once a day Active ARIPiprazole 2 MG 1 tablet Orally Once a day Active Immunizations Vaccine Route Administration Date Status Comme nts *Pneumococcal conjugate PCV 13-VFC Unknown 10/09/2015 Administered *Pneumococcal polysaccharide BTX65-Sgopswt Unknown 02/26/1999 Administered *Pneumococcal polysaccharide UYA64-Ulalmfk Unknown 07/07/2013 Administered *Pneumococcal polysaccharide GZP34-Mxukuuy Unknown 08/26/2017 Administered *Tdap (Adacel)-Private IM Intramuscular 07/21/2022 Adminis tered COVID-19 (Pfizer)-Private Unknown 07/22/2020 Administer ed COVID-19 (Pfizer)-Private Unknown 08/13/2020 Administer ed COVID-19 (Pfizer)-Private Unknown 03/13/2021 Administer ed Fluad (aIIV4) Unknown 04/04/2021 Administered Fluad (aIIV4) Unknown 03/04/2022 Administered Influenza (split), 3 yrs and above Unknown 04/09/2000 Administered Influenza (split), 3 yrs and above Unknown 03/28/2004 Administered Influenza Vaccine-Private Unknown 02/06/2020 Administer ed Influenza, high dose seasonal Unknown 02/10/2017 Administered Influenza, high dose seasonal Unknown 03/09/2019 Administered Influenza, high-dose seasonal, quadrivalent, preservative free >65 yrs Unknown 03/04/2023 Administered Influenza, seasonal, injectable, 6-35 months Unknown 08/08/2000 Administered Influenza, seasonal, injectable, 6-35 months Unknown 04/13/2001 Administered Influenza, seasonal, injectable, 6-35 months Unknown 04/01/2002 Administered Influenza, seasonal, injectable, 6-35 months Unknown 03/18/2005 Administered Influenza, seasonal, injectable, 6-35 months Unknown 03/08/2015 Administered Influenza, seasonal, injectable, preservative free, 6-35 months Unknown 02/20/2016 Administered Influenza,trivalent,season al,adj.,non preservative Unknown 02/17/2018 Administered SARS-COV-2 (COVID-19) vaccine, mRNA, spike protein, LNP, preservative free, 30 mcg/0.3mL dose, lynette-sucrose formulation Unknown 09/25/2021 Administered Zoster (shingles), recombinant, sub-unit, IM Unknown 09/01/2018 Administered Zoster (shingles), recombinant, sub-unit, IM Unknown 04/06/2019 Administered Social History Tobacco Use: Social History Observation Description Date Details (start date - stop date) Never Smoker NA - NA Sex Assigned At : Social History Observation Description Sex Assigned At Female Household Question Answer Notes Number of adults in household: 2 Tobacco Use/Smoking Question Answer Notes Tobacco use: nonsmoker patient enter ed data CAGE-AID Questionnaire (2018 Edition) Question Answer Notes Have you ever felt that you ought to cut down on your drinking or drug use? No patient entered data Have people annoyed you by c riticizing your drinking or drug use? No patient entered data Have you ever felt bad or gu ilty about your drinking or drug use? No patient entered data Have you ever had a drink or used drugs first thing in the morning to steady your nerves or to get rid of a hangover? No patient entered data CAGE-AID Score 0 Interpretation Negative PRAPARE Question Answer Notes What is your current housing situation? I have housing patient entered data Are you worried about losing your housing? No patient entered data What is the highest level of school that you have finished? I choose not to answer this question Are you a refugee? No patient en tered data What country are you from? [place] melody roldan entered data PRAPARE Score: 3 Tobacco Control (Standard) Question Answer Notes Tobacco use: Nonsmoker Problems Problem Type SNOMED Code ICD Code Onset Dates Problem Status W/U Status Risk Notes Problem Mixed hyperlipidemia (938997317) Mixed hyperlipidemia (E78.2) Active confirmed Problem Osteoarthritis (918944953) Osteoarthritis (M19.90) Active confirmed Problem Chronic kidney disease stage 3B (disorder) (003020845) Stage 3b chronic kidney disease (N18.32) Active confirmed Problem Gout (23702962) Acute gout of right foot, unspecified cause (M10.9) Active confirmed Problem Essential hypertension (12503627) Essential hypertension (I10) Active confirmed Vital Signs Heart Rate 80 /min 08/28/2024 Singh, Ser vando 08/28/2024 11:12:14 AM EDT > Temperature 97.6 degrees Fahrenheit 08/28/2024 Vald ovlisa, Gonzales 08/28/2024 11:12:14 AM EDT > Respiratory Rate 18 /min 08/28/2024 Singh, Gonzales 08/28/2024 11:12:14 AM EDT > Blood pressure diastolic 72 mm Hg 08/28/2024 Chiquis dovinos, Gonzales 08/28/2024 11:12:14 AM EDT > Oximetry 98 % 08/28/2024 Singh, Ser vando 08/28/2024 11:12:14 AM EDT > Weight-kg 83.01 kg 08/28/2024 Singh, Ser vando 08/28/2024 11:12:14 AM EDT > Height 60 in 08/28/2024 Singh, Ser vando 08/28/2024 11:12:14 AM EDT > Blood pressure systolic 114 mm Hg 08/28/2024 Vald ovlisa, Gonzales 08/28/2024 11:12:14 AM EDT > Weight 183 lbs 08/28/2024 Singh, Ser vando 08/28/2024 11:12:14 AM EDT > BMI 35.74 kg/m2 08/28/2024 Singh, Ser vando 08/28/2024 11:12:14 AM EDT > Encounters Encounter Location Date Provider Diagnosis Main [address] [place], [place] [id number] 01/26/2024 Brent Isaura Right medial knee pa in M25.561 Main [address], [place] [id number] 04/11/2024 Chanell Gustavo Dysuria R30.0 and Ac karolyn cystitis with hematuria N30.01 Main [address] [place], [place] [id number] 06/08/2024 Guillermina [facility] COVID-19 U07.1 ; Obe sity, Class II, BMI 35-39.9 E66.812 and BMI 35.0-35.9,adult Z68.[address] [place], [place] [id number] 07/25/2024 Guillermina Karin Essential hypertensi on I10 ; Obesity, Class II, BMI 35-39.9 E66.812 and BMI 35.0-35.9,adult Z68.[address] [place], [place] [id number] 08/28/2024 Guillermina Karin Essential hypertensi on I10 ; Epiploic appendagitis K63.89 ; Obesity, Class II, BMI 35-39.9 E66.812 and BMI 35.0-35.9,adult Z68.[address] [place], [place] [id number] 03/27/2024 Chanell Gustavo Essential hypertensi on I10 Main [address] [place], [place] [id number] 06/06/2024 Chanell Gustavo Main [address] [place], [place] [id number] 06/08/2024 Guillermina Karin Main [address] [place], [place] [id number] 07/10/2024 Chanell Gustavo Essential hypertensi on I10 Main [address] [place], [place] [id number] 08/10/2024 Guillermina [facility] Stage 3b chronic kid joanna disease N18.[address] [place], [place] [id number] 08/29/2024 Guillermina [facility] Main [address] [place], [place] [id number] 09/13/2024 Guillermina Karin Essential hypertensi on I10 Main [address] [place], [place] [id number] 11/14/2024 Diane Coyle Assessments Encounter Date Diagnosis (ICD Code) Assessment Notes Treatment Notes Treatment Clinical Notes Section Notes 01/26/2024 Right medial knee pain (ICD-10 - M25.561) -Ordered right knee X-Rays, Hx of bilateral knee OA -discussed and making referral to Ortho for further ec=valuation / MRI / Therapy 03/27/2024 Essential hypertension (ICD-10 - I10) 04/11/2024 Acute cystitis with hematuria (ICD-10 - N30.01) encouraged adequate hydration if not improving in 3-5 days, please f.u 04/11/2024 Dysuria (ICD-10 - R30.0) 06/08/2024 COVID-19 (ICD-10 - U07.1) Encouraged symptomatic management, encouraged staying hydrated w/ adequate amounts of fluids and rest. Continue Motrin 800 mg OTC PRN for aches, not for long-term use. F/U PRN 06/08/2024 Obesity, Class II, BMI 35-39.9 (ICD-10 - E66.812) 07/10/2024 Essential hypertension (ICD-10 - I10) 07/25/2024 Essential hypertension (ICD-10 - I10) HTN stable. Will continue current medications. Encouraged healthy diet and exercise. F/u 6 months & PRN Pt to obtain labs prior to appt b 07/25/2024 Obesity, Class II, BMI 35-39.9 (ICD-10 - E66.812) b 08/10/2024 Stage 3b chronic kidney disease (ICD-10 - N18.32) 08/28/2024 Essential hypertension (ICD-10 - I10) HTN stable. Will continue current medications. Encouraged healthy diet and exercise. F/u 6 months & PRN 08/28/2024 Epiploic appendagitis (ICD-10 - K63.89) Pt is doing well at this time Continue w/ Ibuprofen and Tylenol OTC 09/13/2024 Essential hypertension (ICD-10 - I10) 08/28/2024 Obesity, Class II, BMI 35-39.9 (ICD-10 - E66.812) 07/25/2024 BMI 35.0-35.9,adult (ICD-10 - Z68.35) b 06/08/2024 BMI 35.0-35.9,adult (ICD-10 - Z68.35) 08/28/2024 BMI 35.0-35.9,adult (ICD-10 - Z68.35) Plan Of Treatment Future Test Test Name Order Date LIPID PANEL WITH REFLEX TO DIRECT LDL COMPREHENSIVE METABOLIC PANEL (AMA) 06/2024 Next Appt Details Provider Name:Guillermina Frazier , 01/29/2025 11:15:00 AM, [address] [place], [place], [id number], Insurance Providers Payer Name Payer Address Payer Phone Subscriber Number Group Number Insured Name Patient Relationship to Insured Coverage Start Date Coverage End Date [employer] Medicare [address] [address] [place] [address] [id number] Moreno Self - patient is the insured 4 Medical (General) History Medical History History ICD Code Chronic anemia D64.9 Other chronic pain M51.36 Degenerative disc disease at L5-S1 level F41.8 Anxiety with depression K21.9 Gastroesophageal reflux disease without esophagitis J30.2 Malignant neoplasm of female breast (174 .8) 174.8 TMJ (temporomandibular joint syndrome) M 26.609 Thoracic outlet syndrome G54.0 Essential hypertension I10 Thyroid nodule E04.1 Abnormal echocardiogram R93.1 Surgical History Surgery Date(Month/Year) Breast Ca Right 06/2014
--- OUTSIDE RECORDS SUMMARY | 2025-01-15 07:01 | XMS_ITS | Encounter Summary ---
Author Organization [facility] [employer] Address [facility]-[id number] [address] [place] [address] Care Team Providers Care Production Weigher Name Role Phone Chanell Chen MID LEVEL PRACTITIONER-ICE CARVER Primary Care Provider [phone]- [phone] Encounter Details Date Type Department Care Team (Late st Contact Info) Description 09/15/2021 Orders Only [facility] Medicine [address] [place] [phone] Emily Mcneal RMA Benign essential hypertension; Dyslipidemia Social History Tobacco Use Types Packs/Day Years [...] Family Three times a week 03/09/2019 Attends [employer] [facility] More than 4 times per year [...] Answer Date Recorded Total Score 0 08/18/2021 [facility] [place] of Occupat ional Health - Occupational Stress [...] on file Sexual Orientation Not on file COVID-19 Exposure Response Date Recorded In the last month, have you been in contact with someone who was confirmed or suspected to have Coronavirus / COVID-19? No / Unsure 08/18/2021 11:53 AM EST documented as of this encounter Plan of Treatment Not on file documented as of this encounter Procedures Procedure Name Priority Date/Time Associated Diagnosis Comments LIPID PROFILE Routine 09/15/2021 Dyslipidemia COMPREHENSIVE METABOLIC PANEL Routine 09/15/2021 Benign essential hypertension Dyslipidemia documented in this encounter Results * Lipid profile (09/15/2021) External Cholesterol 150 <200 [facility] External Cholesterol:Hdl 3.1 [facility] External Hdl Cholesterol 49 40 - 60 [facility] External Ldl (Calc) 42.2 [facility] External Triglycerides 294 <150 [facility] External Very Low Lipoprotein 58.8 [facility] 09/15/2021 us Roberto Gee MD LAB BLOOD ORDERABLES Final Result [facility] * Comprehensive metabolic panel (09/15/2021) External Albumin 3.7 3 - 5.0 [facility] External Alt Sgpt 15 14 - 59 [facility] External Anion Gap 12.1 [facility] External Ast 16 15 - 37 [facility] External Blood Urea Nitrogen Bun 14 7.0 - 18.0 [facility] External Calcium Ca 8.9 [facility] External Chloride 103 98 - 107 [facility] External Co2 / Carbon Dioxide 28.1 22.0 - 33.0 [facility] External Creatinine 0.92 0.52 - 1.04 [facility] External Gfr Amer >60 >60 [facility] External Gfr Non Amer 60 >60 [facility] External Alkaline Phosphatase 83 46 - 116 [facility] External Glucose Fasting Or Random (Fbs) 107 [facility] External Potassium K 4.2 3.4 - 5.0 [facility] External Sodium Na 139 137 - 145 [facility] Total Bilirubin 0.4 0.2 - 1.3 [facility] External Total Protein 7.0 6.1 - 8.2 [facility] 09/15/2021 us Rboerto Gee MD LAB BLOOD ORDERABLES Final Result [facility] documented in this encounter Visit Diagnoses Diagnosis Benign essential hypertension Essential hypertension, benign Dyslipidemia Other and unspecified hyperlipidemia documented in this encounter Additional Health Concerns Assessment Noted Time PHQ-9 Depression Total Score: 0 08/19/19 22 12:00 PM EST documented as of this encounter Care Teams Production Weigher Relationship Specialty Start Date End Date Chanell Chen APRN-BERT [address] [place] [address] [place] [address] PCP - General Family Medicine 05/08/24 documented as of this encounter
--- OUTSIDE RECORDS SUMMARY | 2025-01-15 07:01 | XMS_ITS | Encounter Summary ---
Author Organization [facility] Address [address] [place] [address] Care Team Providers Care Application Processor Name Role Phone Unallocated, Noms Provider Primary Care Provi ct Encounter Details Date Type Department Care Team ([facility] st Contact Info) Description 04/30/2021 Abstract [facility] [address] [facility] [place] [phone] Kimberlee Garza, [facility] [address] [place] [place] [address] Social History Tobacco Use Types Packs/Day Years [...] on filedocumented in this encounter Care Teams Application Processor Relationship Specialty Start Date End Date Unallocated, Noms Provider, [place] [address] PCP - General Family Medicine 09/14/24 documented as of this encounter
--- OUTSIDE RECORDS SUMMARY | 2025-01-15 07:01 | XMS_ITS | Encounter Summary ---
Author Organization [employer] Address [id number] [address] [place] [address] Care Team Providers Care Parquetry Layer Name Role Phone Chanell Chen Primary Care Provider [phone]- [phone] Reason for Visit * Reason Comments Med Refill Encounter Details Date Type Department Care Team (Late st Contact Info) Description 04/03/2016 Refill [facility] [address] [place] [phone] Roberto Gee MD [address] [place] [address] [place] [id number] Social History Tobacco Use Types Packs/Day Years [...] on filedocumented in this encounter Care Teams Parquetry Layer Relationship Specialty Start Date End Date Chanell Chen APRN-FNP [address] [place], [place] [id number] PCP - General Family Medicine 05/08/24 documented as of this encounter
--- OUTSIDE RECORDS SUMMARY | 2025-01-15 07:01 | XMS_ITS | Encounter Summary ---
Author Organization [employer] Address [id number] [address] [place] [address] Care Team Providers Care Radial Drill Press Operator Name Role Phone Chanell Chen Primary Care Provider [phone]- [phone] Reason for Visit * Reason Comments Med Refill Encounter Details Date Type Department Care Team (Late st Contact Info) Description 12/29/2016 Refill [facility] [address] [place] [phone] Roberto Gee MD [address] [place] [id number] Social History Tobacco Use Types Packs/Day [...] documented as of this encounter Care Teams Radial Drill Press Operator Relationship Specialty Start Date End Date Chanell Chen APRN-FNP [address] [place] [address] PCP - General Family Medicine 05/08/24 documented as of this encounter
--- OUTSIDE RECORDS SUMMARY | 2025-01-15 07:01 | XMS_ITS | Encounter Summary ---
Author Organization [facility] Address [address] [place] [address] Care Team Providers Care Assistant Federal Public Defender Name Role Phone Unallocated, Noms Provider Primary Care Provi ct Encounter Details Date Type Department Care Team ([facility] st Contact Info) Description 05/21/2021 Abstract LETTY [facility] Audiology [address] [place] [place] [address] Kimberlee Garza, [facility] [address] [facility] [place] [address] Social History Tobacco Use Types Packs/Day Years [...] on filedocumented in this encounter Care Teams Assistant Federal Public Defender Relationship Specialty Start Date End Date Unallocated, Noms Provider, [place] [address] PCP - General Family Medicine 09/14/24 documented as of this encounter
--- OUTSIDE RECORDS SUMMARY | 2025-01-15 07:02 | XMS_ITS | Encounter Summary ---
Author Organization [employer] tem Address [facility] [place]-[id number] [address] [place] [address] Care Team Providers Care Backing In Machine Tender Name Role Phone Gustavo, Chanell FUR EXAMINER-BUILD AND DEPLOYMENT ENGINEER Primary Care Provider +1- [phone] Reason for Visit * Reason Comments Med Refill Encounter Details Date Type Department Care Team (Late st Contact Info) Description 10/25/2018 Refill [facility] Physicians Internal Medicine [address] [place] [address] Elizabeth Don APRN-CNP [address] [address] Social History Tobacco Use Types Packs/Day Years Used Date Smoking Tobacco: Never Smokeless Tobacco: Never Alcohol Use Standard Drinks/Week Comments Yes 1 (1 standard drink = 0.6 oz pur e alcohol) PHQ-2 Answer Date Recorded PHQ-2 Score 5 08/22/2018 Childcare Answer Date Recorded Childcare Unknown 09/02/2018 Employment Answer Date Recorded Employment Unknown 09/02/2018 Comments No Sex and Gender Information Value Date Recorded Sex Assigned at Not on file Legal Sex Female 10:04 PM EDT Gender Identity Not on file Sexual Orientation Not on file documented as of this encounter Miscellaneous Notes * Telephone Encounter - NELY Rosenberg - 10/25/2018 1:[address] Galvan documented in this encounter Plan of Treatment Not on file documented as of this encounter Visit Diagnoses Not on filedocumented in this encounter Additional Health Concerns Assessment Noted Time PHQ-9 Depression Total Score: 5 08/23/19 19 11:00 AM EDT documented as of this encounter Care Teams Backing In Machine Tender Relationship Specialty Start Date End Date Chanell Chen APRN-FNP [address] [place] [address] PCP - General Family Medicine 05/08/24 documented as of this encounter
--- OUTSIDE RECORDS SUMMARY | 2025-01-15 07:02 | XMS_ITS | Encounter Summary ---
Author Organization [employer] Address [facility] [id number] [address] [place] [address] Care Team Providers Care Textile Examiner Name Role Phone Gustavo, Chanell FILM LIBRARIAN-SUPERVISOR BACKFILLING Primary Care Provider +1- [phone] Reason for Visit * Reason Comments Med Refill Encounter Details Date Type Department Care Team (Late st Contact Info) Description 07/01/2024 Refill [facility] Cardiology [address] [place] [phone] Nathaniel Willoughby, FILM LIBRARIAN-VENETIAN BLIND MACHINE OPERATOR [address] [place], [place] [id number] Med Refill Social History Tobacco Use Types Packs/Day Years [...] Family Three times a week 03/09/2019 Attends Religion Services More than 4 times per year 03/09/2019 Active Member of Clubs or Organizations Yes 03/09/2019 Attends Club or Organization Meetings 1 to 4 adam es per year 03/09/2019 Marital Status 03/09/2019 AUDIT-C Answer Date Recorded Frequency of Alcohol Consumption Monthly or less 03/09/2019 Average Number of Drinks Not on file 09/26/2 019 Frequency of Binge Drinking Never 02/13 Overall Financial Resource Strain (CARDIA) Answe r Date Recorded Difficulty of Paying Living Expenses Not hard at all 03/09/2019 PHQ-2 Answer Date Recorded Total Score 0 08/18/2021 [facility] [place] of Occupat ional Health - Occupational Stress [...] Employment Answer Date Recorded Employment No 03/09/2019 Hunger Screening Answer Date Recorded Within the past 12 months we worried whether our food would run out before we got money to buy more. Never True 05/08/2024 Within the past 12 months th e food we bought just didn't last and we didn't have money to get more. Never True 05/08/2024 Purpose - Life Answer Date Recorded Purpose [...] encounter Miscellaneous Notes * Telephone Encounter - Zeinab Whitaker RN - 07/01/2024 11:47 AM EST Dose adjusted and new Rx sent. Disp Refills Start End lisinopril-hydroCHLOROthiazide (PRINZIDE,ZESTORETIC) 10-12.5 mg per tablet 180 tablet 3 05/08/2024 -- Sig - Route: Take 1 tablet by mouth in the morning and at bedtime. - oral Sent to pharmacy as: lisinopril 10 mg-hydrochlorothiazide 12.5 mg tablet (PRINZIDE,ZESTORETIC) E-Prescribing Status: Receipt confirmed by pharmacy (05/08/2024 1:11 PM EST) documented in this encounter Plan of Treatment Not on file documented as of this encounter Visit Diagnoses Not on filedocumented in this encounter Additional Health Concerns Assessment Noted Time PHQ-9 Depression Total Score: 0 08/19/19 12:00 PM EST A Body Mass Index follow-up plan has been documented for the patient 06/01/2022 11:26 AM EST documented as of this encounter Care Teams Textile Examiner Relationship Specialty Start Date End Date Chanell Chen APRN-FNP [address] [place] [address] PCP - General Family Medicine 05/08/24 documented as of this encounter
--- OUTSIDE RECORDS SUMMARY | 2025-01-15 07:02 | XMS_ITS | Encounter Summary ---
Author Organization [employer] Address [facility] [place][id number] [address] [place] [address] Care Team Providers Care Network Firewall Engineer Name Role Phone Gustavo, Chanell GRAIN UNLOADER MACHINE-RADIATION ONCOLOGY MANAGER Primary Care Provider +1- [phone] Reason for Visit * Reason Onset Date Comments Med Refill 03/01/2019 Encounter Details Date Type Department Care Team (Late st Contact Info) Description 03/01/2019 Refill [facility] Physicians Internal Medicine [address] [place] [address] Giovanna Inman CMA Chronic right-sided low back pain with right-sided sciatica; Malignant neoplasm of areola of right breast in female, unspecified estrogen receptor status ([facility]) Social History Tobacco Use Types Packs/Day Years Used Date Smoking Tobacco: Never Smokeless Tobacco: Never Alcohol Use Standard Drinks/Week Comments Yes 1 (1 standard drink = 0.6 oz pur e alcohol) PHQ-2 Answer Date Recorded PHQ-2 Score 5 08/22/2018 Childcare Answer Date Recorded Childcare Unknown 11/15/2018 Employment Answer Date Recorded Employment Unknown 11/15/2018 Comments No Sex and Gender Information Value Date Recorded Sex Assigned at Not on file Legal Sex Female 10:04 PM EDT Gender Identity Not on file Sexual Orientation Not on file documented as of this encounter Miscellaneous Notes * Telephone Encounter - Giovanna Inman CMA - 03/01/2019 2:40 PM EDT MEGHANN TA MD Caller; Juli[facility] at [facility] Last ov:11/22/18 Patient needs ref[facility] to [facility] for medication. Please advise. Requested Prescriptions Pending Prescriptions Disp Refills ??? oxyCODONE-acetaminophen (PERCOCET) 10-325 mg per tablet 120 tablet 0 Sig: Take 1 tablet by mouth every 4 (four) hours as needed for pain. Max Daily Amount: 6 tablets documented in this encounter Plan of Treatment Not on file documented as of this encounter Visit Diagnoses Diagnosis Chronic right-sided low back pain with right-sided sciatica Malignant neoplasm of areola of right breast in female, unspecified estrogen receptor status ([facility]) documented in this encounter Additional Health Concerns Assessment Noted Time PHQ-9 Depression Total Score: 5 08/23/19 19 11:00 AM EDT documented as of this encounter Care Teams Network Firewall Engineer Relationship Specialty Start Date End Date Chanell Chen APRN-BERT [address] [facility] [place] [place] [address] PCP - General Family Medicine 05/08/24 documented as of this encounter
--- OUTSIDE RECORDS SUMMARY | 2025-01-15 07:02 | XMS_ITS | Encounter Summary ---
Author Organization [employer] Address [facility] [place]-[id number] [address] [place] [address] Care Team Providers Care Albacore Fishing Boat Crewman Name Role Phone Chanell Chen MALLET CUTTER-SPA COORDINATOR Primary Care Provider +1- [phone] Reason for Visit * Reason Comments Med Refill Encounter Details Date Type Department Care Team (Late st Contact Info) Description 07/23/2019 Refill [facility] Internal Medicine [address] [place] [phone] Roberto Gee MD [address] [place] [address] [address] [place] [address] Benign essential hypertension Social History Tobacco Use Types Packs/Day Years [...] Family Three times a week 03/09/2019 Attends Cheondoism Services More than 4 times per year [...] at all 03/09/2019 PHQ-2 Answer Date Recorded PHQ-2 Score 5 08/22/2018 [facility] [place] of Occupat ional Health - Occupational Stress [...] Diagnosis Benign essential hypertension Essential hypertension, benign documented in this encounter Additional Health Concerns Assessment Noted Time PHQ-9 Depression Total Score: 5 03/09/20 19 12:53 PM EDT documented as of this encounter Care Teams Albacore Fishing Boat Crewman Relationship Specialty Start Date End Date Chanell Chen APRN-FNP [address] [facility] [place] [address] PCP - General Family Medicine 05/08/24 documented as of this encounter
--- OUTSIDE RECORDS SUMMARY | 2025-01-15 07:02 | XMS_ITS | Encounter Summary ---
Author Organization [employer] Address [facility] [id number] [address] [place] [address] Care Team Providers Care Agriculture Science Teacher Name Role Phone Chanell Chen ENVIRONMENTAL PROGRAMS MANAGER-BRAND MANAGER Primary Care Provider +1- [phone] Reason for Visit * Reason Comments Med Refill Encounter Details Date Type Department Care Team (Late st Contact Info) Description 04/13/2022 Refill [facility] Internal Medicine [address] [place] [phone] Roberto Gee MD [address] [place] [address] [address] [place] [address] Chronic right-sided low back pain with right-sided sciatica Social History Tobacco Use Types Packs/Day Years [...] Family Three times a week 03/09/2019 Attends Confucianist Services More than 4 times per year [...] Answer Date Recorded Total Score 0 08/18/2021 [facility] [place] of Occupat ional Health - Occupational Stress [...] encounter Miscellaneous Notes * Telephone Encounter - Sher Stephens MD - 04/13/2022 9:41 AM EDT Needs an appointment with someone documented in this encounter Plan of Treatment Not on file documented as of this encounter Visit Diagnoses Diagnosis Chronic right-sided low back pain with right-sided sciatica documented in this encounter Additional Health Concerns Assessment Noted Time PHQ-9 Depression Total Score: 0 08/19/19 22 12:00 PM EST documented as of this encounter Care Teams Agriculture Science Teacher Relationship Specialty Start Date End Date Chanell Chen APRN-BERT [address] [place] [address] PCP - General Family Medicine 05/08/24 documented as of this encounter
--- OUTSIDE RECORDS SUMMARY | 2025-01-15 07:02 | XMS_ITS | Encounter Summary ---
Author Organization [employer] Address [facility] [place][id number] [address] [place] [address] Care Team Providers Care Epic Stork Specialists Name Role Phone Chanell Chen EDITORIAL PROJECT MANAGER-PUDDLER PILE DRIVING Primary Care Provider +1- [phone] Encounter Details Date Type Department Care Team (Late st Contact Info) Description 02/19/2023 [facility] [address] [facility] [address] [place] [phone] [facility], [facility] [place] [facility] & [address] [facility], [address] [place], [place] [phone] Social History Tobacco Use Types Packs/Day Years [...] Family Three times a week 03/09/2019 Attends Mormon Services More than 4 times per year [...] Answer Date Recorded Total Score 0 08/18/2021 [facility] [place] of Occupat ional Health - Occupational Stress [...] encounter Miscellaneous Notes * Telephone Encounter - Margie Farias - 02/19/2023 9:26 AM EDT CONTACTED PATIENT TO SCHED FOR REFERRAL FROM DR BLUNT. PATIENT WAS UNAWARE OF REFERRAL AND DID NOTWANT TO TRAVEL TO [place]. I RECOMMENDED SHE CONTACT DR BLUNT'S OFFICE TO CLARIFY REASON FOR REFERRAL AND ASK FOR A REFERRAL FOR A PROVIDER CLOSER TO HER. SHE STATED SHE WOULD CONTACT DR BLUNT'S OFFICE. documented in this encounter Plan of Treatment Not on file documented as of this encounter Visit Diagnoses Not on filedocumented in this encounter Additional Health Concerns Assessment Noted Time PHQ-9 Depression Total Score: 0 08/19/19 22 12:00 PM EST A Body Mass Index follow-up plan has been documented for the patient 06/01/2022 11:26 AM EST documented as of this encounter Care Teams Epic Stork Specialists Relationship Specialty Start Date End Date Chanell Chen APRN-BERT [address] [place] [address] PCP - General Family Medicine 05/08/24 documented as of this encounter
--- OUTSIDE RECORDS SUMMARY | 2025-01-15 07:02 | XMS_ITS | Encounter Summary ---
Author Organization [employer] Address [facility] [place] [place]-[id number] [address] [place] [address] Care Team Providers Care Railroad Construction Director Name Role Phone Chanell Chen SUPPLIER QUALITY ENGINEERING MANAGER-EDITORIAL PROJECT MANAGER Primary Care Provider +1- [phone] Encounter Details Date Type Department Care Team (Late st Contact Info) Description 05/20/2022 Orders Only [facility] [employer] [address] [place] [address] External, Scanning Provider Pain (Primary Dx) Social History Tobacco Use Types [...] Family Three times a week 03/09/2019 Attends Uatsdin Services More than 4 times per year [...] Answer Date Recorded Total Score 0 08/18/2021 [place] of Occupat ional Health - Occupational Stress [...] on file documented as of this encounter Results * X-ray spine lumbar minimum 4 views (04/29/2022 11:25 AM EST) us Scanning Provider External IMG DIAGNOSTIC IMAGIN G ORDERABLES Final Result documented in this encounter Visit Diagnoses Diagnosis Pain- Primary Generalized pain documented in this encounter Additional Health Concerns Assessment Noted Time PHQ-9 Depression Total Score: 0 08/19/19 22 12:00 PM EST documented as of this encounter Care Teams Railroad Construction Director Relationship Specialty Start Date End Date Chanell Chen APRN-FNP [address] [place] [address] PCP - General Family Medicine 05/08/24 documented as of this encounter
--- OUTSIDE RECORDS SUMMARY | 2025-01-15 07:02 | XMS_ITS ---
Author Organization [employer] Address [facility] [id number] [address] [place] [address] Care Team Providers Care Surveyor Mine Name Role Phone Chanell Chen HELP DESK CONSULTANT-STRAWHAT BLOCKING OPERATOR Primary Care Provider +1- [phone] Active Problems * This document contains information received from the source organization and may not represent a complete record from that organization. Problem Noted Date Diagnosed Date Abnormal echocardiogram 12/11/2022 Pulmonary hypertension 12/11/2022 Spinal stenosis of lumbar region 06/01/2022 Facet arthritis of lumbar region 06/01/2022 Scoliosis of lumbar spine 06/01/2022 Sprain of right rotator cuff capsule 03/10/2019 Tension headache 02/27/2018 Depressive disorder 10/01/2017 Thoracic outlet syndrome 05/17/2017 Gastroesophageal reflux disease with esophagitis 12/05/2016 Severe obesity (BMI 35.0-39.9) with comorbidity 09/04/2016 Medicare annual wellness visit, subsequent 06/09 Pain in both knees 06/09/2016 Pseudophakia 05/26/2016 Malignant neoplasm of female breast 01/21/2016 Temporomandibular joint disorder 01/21/2016 Benign essential hypertension 12/24/2015 Chronic right-sided low back pain with right-andres ed sciatica 12/24/2015 Dyslipidemia 12/24/2015 Current Treatment and Therapy Plans No current plan information found. Past Treatment and Therapy Plans No past plan information found. Lifetime Dose Tracking * Chemical Lifetime Dose Automatic Entry Manual Entr y Fluoroscopy 300 mGy 0 mGy 300 mGy Resolved Problems Problem Noted Date Diagnosed Date Resolved Date Dry eyes, bilateral 05/26/2016 02/28/20 20 Menopausal and female climacteric states 02/06/2016 02/28/2020
--- OUTSIDE RECORDS SUMMARY | 2025-01-15 07:02 | XMS_ITS | Encounter Summary ---
Author Organization [employer] Address [facility] [place]-[id number] [address] 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; Pulmonary hypertension (CMS-HCC); Benign essential hypertension; Dyslipidemia; Dyspnea on exertion Social History Tobacco Use Types Packs/Day Years [...] Family Three times a week 03/09/2019 Attends Taoism Services More than 4 times per year [...] Answer Date Recorded Total Score 0 08/18/2021 [facility] [place] of Occupat ional Health - Occupational Stress [...] Procedure Name Priority Date/Time Associated Diagnosis Comments BASIC METABOLIC PANEL Routine 06/23/2024 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 Pulmonary hypertension (CMS-HCC) Benign essential hypertension Dyslipidemia Dyspnea on exertion documented in this encounter Results * Basic Metabolic Panel (06/23/2024) 06/23/2024 us Arben Jones MD LAB BLOOD ORDERABLES Final Re sult [facility] documented in this encounter Visit Diagnoses Diagnosis 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 Pulmonary hypertension (CMS-HCC) Other chronic pulmonary heart diseases Benign essential hypertension Essential hypertension, benign Dyslipidemia Other and unspecified hyperlipidemia Dyspnea on exertion Other dyspnea and respiratory abnormality documented in this encounter Additional Health Concerns Assessment Noted Time PHQ-9 Depression Total Score: 0 08/19/19 22 12:00 PM EST A Body Mass Index follow-up plan has been documented for the patient 06/01/2022 11:26 AM EST documented as of this encounter Care Teams Flat Spring Assembler Relationship Specialty Start Date End Date Chanell Chen APRN-BERT [address] [place] [address] PCP - General Family Medicine 05/08/24 documented as of this encounter
--- OUTSIDE RECORDS SUMMARY | 2025-01-15 07:02 | XMS_ITS | Encounter Summary ---
Author Organization [employer] Address [facility] [id number] [address] [place] [address] Care Team Providers Care Rolfer Name Role Phone Gustavo, Chanell BUFFING WHEEL OPERATOR-RECREATION PROGRAM SPECIALIST Primary Care Provider +1- [phone] Reason for Visit * Reason Comments Med Refill Encounter Details Date Type Department Care Team ([facility] st Contact Info) Description 01/26/2022 Refill [facility] Internal Medicine [address] [place] [phone] Pamela Chakraborty MD [address] [address] Social History Tobacco Use Types Packs/Day Years [...] Family Three times a week 03/09/2019 Attends Christianity Services More than 4 times per year [...] Answer Date Recorded Total Score 0 08/18/2021 [facility] [place] of Occupat ional Health - Occupational Stress [...] encounter Miscellaneous Notes * Telephone Encounter - Pamela Chakraborty MD - 01/26/2022 1:06 AM EDT Your patient documented in this encounter Plan of Treatment Not on file documented as of this encounter Visit Diagnoses Not on filedocumented in this encounter Additional Health Concerns Assessment Noted Time PHQ-9 Depression Total Score: 0 08/19/19 22 12:00 PM EST documented as of this encounter Care Teams Rolfer Relationship Specialty Start Date End Date Chanell Chen APRN-BERT [address] [place] [address] PCP - General Family Medicine 05/08/24 documented as of this encounter
--- OUTSIDE RECORDS SUMMARY | 2025-01-15 07:02 | XMS_ITS | Clinical Summary ---
Author Organization [facility] Address [address] [place] [address] Care Team Providers Care Healthcare Administration Intern Name Role Phone Unallocated, Noms Provider Primary Care Provi ct Medications No known medications Active Problems No known active problems Family History Medical History Relation Name Comments Arthritis Father Cancer Father Hypertension Father Arthritis Mother Hypertension Mother Multiple myeloma Neg Hx Relation Name Status Comments Father Mother Social History Tobacco Use Types Packs/Day Years Used Date Smoking Tobacco: Never Tobacco Cessation:Counseling Given: Yes Comments Unknown Sex and Gender Information Value Date Recorded Sex Assigned at Not on file Legal Sex Female 11:21 PM EDT Gender Identity Not on file Sexual Orientation Not on file Last Filed Vital Signs Vital Sign Reading Time Taken Comments Blood Pressure - - Pulse - - Temperature - - Respiratory Rate 16 09/14/2024 11:31 AM EDT Oxygen Saturation - - Inhaled Oxygen Concentration - - Weight - - Height 139.7 cm (4' 7 ) 09/14/2024 11:31 AM EDT Body Mass Index - - Plan of Treatment Health Maintenance Due Date Last Done Comments Medicare Annual Wellness (AWV) 02/18/2022 0 02/18/2021, 08/28/2019, 08/22/2018, Additional history exists Influenza Vaccine (#1) 2025 , 03/04/2023, 03/04/2022, Additional history exists Pneumococcal Vaccine: 65+ Years Completed 08/26/2017, 10/09/2015, 07/07/2013, Additional history exists Insurance [facility] MEDICARE Care Teams Healthcare Administration Intern Relationship Specialty Start Date End Date Unallocated, Noms Provider, [address] [place] [address] PCP - General Family Medicine 09/14/24
--- OUTSIDE RECORDS SUMMARY | 2025-01-15 07:02 | XMS_ITS | Encounter Summary ---
Author Organization [employer] Address [facility] [id number] [address] [place] [address] Care Team Providers Care Healthcare Account Manager Name Role Phone Gustavo, Chanell INSURANCE ACCOUNT ASSISTANT-BANK TELLER MACHINE MECHANIC Primary Care Provider [phone]- [phone] Reason for Visit * Reason Onset Date Comments Med Refill 02/18/2022 Encounter Details Date Type Department Care Team (Late st Contact Info) Description 02/18/2022 Refill [facility] [address] [place] [phone] Roberto Gee MD [address] [place] [address] [address] [place], [place] [phone] Chronic right-sided low back pain with right-sided sciatica; Malignant neoplasm of areola of right breast in female, unspecified estrogen receptor status ([facility]) Social History Tobacco Use Types Packs/Day [...] Family Three times a week 03/09/2019 Attends Rastafarian Services More than 4 times per year [...] Answer Date Recorded Total Score 0 08/18/2021 [facility] [place] of Occupat ional Health - Occupational Stress [...] have Coronavirus / COVID-19? No / Unsure 02/17/2022 12:28 PM EDT documented as of this encounter Miscellaneous Notes * Telephone Encounter - Marianna Rivera - 02/18/2022 10:10 AM EDT ROBERTO GEE MD Patient called and requested the script of oxyCODONE-acetaminophen (PERCOCET) 10-325 mg per tablet to go to [facility] in [place], [place] instead of [facility]. The script was sent to [facility] yesterday and was suppose to go to [facility]. Please Advise * Telephone Encounter - Sol Mascorro - 02/18/2022 10:10 AM EDT ROBERTO GEE MD. Patient called in regards to refill. Original Rx of percocet was sent to [facility] this medication can not go there, it is needing to be sent to [facility]. Rx for [facility] has been canceled. Please sent this refill to [facility] for patient to tile picker Please advise * Telephone Encounter - Roberto Gee MD - 02/18/2022 10:10 AM EDT done documented in this encounter Plan of Treatment Not on file documented as of this encounter Visit Diagnoses Diagnosis Chronic right-sided low back pain with right-sided sciatica Malignant neoplasm of areola of right breast in female, unspecified estrogen receptor status ([facility]) documented in this encounter Additional Health Concerns Assessment Noted Time PHQ-9 Depression Total Score: 0 08/19/19 22 12:00 PM EST documented as of this encounter Care Teams Healthcare Account Manager Relationship Specialty Start Date End Date Chanell Chen APRN-BERT [address] [place] [address] PCP - General Family Medicine 05/08/24 documented as of this encounter
--- OUTSIDE RECORDS SUMMARY | 2025-01-15 07:02 | XMS_ITS | Encounter Summary ---
Author Organization [employer] Address [facility] [id number] [address] [place] [address] Care Team Providers Care Construction Project Engineer Name Role Phone Gustavo, Chanell LIFE TEACHER-STRAIGHT PIN MAKING MACHINE OPERATOR Primary Care Provider +1- [phone] Reason for Visit * Reason Comments Med Refill Encounter Details Date Type Department Care Team (Late st Contact Info) Description 04/27/2022 Refill [facility] [address] [place] [phone] Roberto Gee MD [address] [place] [address] [address] [place] [phone] Social History Tobacco Use Types Packs/Day [...] Family Three times a week 03/09/2019 Attends Taoist Services More than 4 times per year [...] Answer Date Recorded Total Score 0 08/18/2021 [facility] [place] of Occupat ional Health - Occupational Stress [...] documented as of this encounter Care Teams Construction Project Engineer Relationship Specialty Start Date End Date Chanell Chen APRN-FNP [address] [place] [address] PCP - General Family Medicine 05/08/24 documented as of this encounter
--- OUTSIDE RECORDS SUMMARY | 2025-01-15 07:02 | XMS_ITS | Encounter Summary ---
Author Organization [employer] Address [facility] [id number] [address] [place] [address] Care Team Providers Care Water Filtration Technician Name Role Phone Chanell Chen SHADE BANDER-FINANCIAL MANAGEMENT Primary Care Provider [phone]- [phone] Encounter Details Date Type Department Care Team (Late st Contact Info) Description 06/23/2022 Telephone [facility] [address] [facility] [address] [place] [address] Kirstie Bourne Social History Tobacco Use Types Packs/Day Years [...] Family Three times a week 03/09/2019 Attends [employer] Services More than 4 times per year [...] Answer Date Recorded Total Score 0 08/18/2021 [facility] of Occupat ional Health - Occupational Stress [...] have Coronavirus / COVID-19? No / Unsure 06/18/2022 10:19 AM EST documented as of this encounter Miscellaneous Notes * Telephone Encounter - Kirstie Bourne - 06/23/2022 10:41 AM EST Martha MATHEW called stating you referred patient to Neurosurgery. However, patient changed her insurance first of the year and both [facility] does not accept the new insurance. You may want to refer her elsewhere. * Telephone Encounter - NELY Peralta - 06/23/2022 10:41 AM EST Per Martha, we will accept the insurance. documented in this encounter Plan of Treatment Not on file documented as of this encounter Visit Diagnoses Not on filedocumented in this encounter Additional Health Concerns Assessment Noted Time PHQ-9 Depression Total Score: 0 08/19/19 22 12:00 PM EST A Body Mass Index follow-up plan has been documented for the patient 06/01/2022 11:26 AM EST documented as of this encounter Care Teams Water Filtration Technician Relationship Specialty Start Date End Date Chanell Chen APRN-BERT [address] [place] [address] PCP - General Family Medicine 05/08/24 documented as of this encounter
--- OUTSIDE RECORDS SUMMARY | 2025-01-15 07:02 | XMS_ITS | Clinical Summary ---
Author Organization [employer] Address [facility] [id number] [address] [place] [address] Care Team Providers Care Wearing Apparel Folder Name Role Phone Chanell Chen IMAGING SCHEDULER-SCRAP HANDLER Primary Care Provider [phone]- [phone] Allergies Active Allergy Reactions Criticality Noted Date Comments Hay Fever And Allergy Relief 015 Other 12/24/2015 Paper tape Medications * This document contains information received from the source organization and may not represent a complete record from that organization. levocetirizine (XYZAL) 5 mg tablet Take 1 tablet (5 mg total) by mouth nightly. Active lansoprazole (PREVACID SOLUTAB) 15 mg disintegrating tabletIndications: heartburn Take 1 tablet (15 mg total) by mouth in the morning. Indications: heartburn. Active mdgbgilt-kwhq-TN-c alcium &mins (THERAGRAN-M) 9 mg iron-400 mcg tabletIndications: mineral deficiency,vitamin deficiency Take 1 tablet by mouth in the morning. Indications: lack in minerals, vitamin deficiency. Active vitamin E 200 units capsuleIndications :vitamin E deficiency Take 2 capsules (400 Units total) by mouth in the morning. Indications: deficiency of vitamin E. Active ARIPiprazole (ABILIFY) 2 mg tablet Take 1 tablet (2 mg total) by mouth in the morning. Active ALPRAZolam (XANAX) 0.25 mg tablet Take 1 tablet (0.25 mg total) by mouth nightly. 1 Active pravastatin (PRAVACHOL) 20 mg tabletIndications: Dyslipidemia TAKE 1 TABLET DAILY 90 tablet 3 2 Active traMADoL (ULTRAM) 50 mg tablet Take 1 tablet (50 mg total) by mouth every 6 (six) hours as needed for pain. Active spironolactone (ALDACTONE) 25 mg tabletIndications: Coronary artery disease involving lower sioux coronary artery of lower sioux heart without angina pectoris,Pulmonary hypertension (CMS-HCC),Benign essential hypertension,Dysli pidemia,Dyspnea on exertion Take 1 tablet (25 mg total) by mouth in the morning. 90 tablet 3 4 Active lisinopril-hydroCH LOROthiazide (PRINZIDE,ZESTORET IC) 10-12.5 mg per tabletIndications: Coronary artery disease involving lower sioux coronary artery of lower sioux heart without angina pectoris,Pulmonary hypertension (CMS-HCC),Benign essential hypertension,Dysli pidemia,Dyspnea on exertion Take 1 tablet by mouth in the morning and at bedtime. 180 tablet 3 4 Active Active Problems Problem Noted Date Diagnosed Date Abnormal echocardiogram [...] with right-andres ed sciatica 12/24/2015 Dyslipidemia 12/24/2015 Resolved Problems Problem Noted Date Diagnosed Date Resolved Date Dry eyes, bilateral 05/26/2016 02/28/20 20 Menopausal and female climacteric states 02/06/2016 02/28/2020 Encounters Date Type Department Care Team Description 11/01/2024 8:55 AM EDT - 11/01/2024 11:59 PM EDT Hospital Encounter [facility] - Ultrasound [address] [place] [id number] Stage 3a chronic kidney disease ([facility]) Discharge Disposition: Home 11/01/2024 Travel from Last 3 Months Immunizations Immunization Administration Dates Next Due COVID-19, mRNA, LNP-S, PF, 3 0mcg/0.3mL Dose 03/13/2021,08/13/2020,07/22/2020 Influenza (IM) Preservative Free 02/20/2016 Influenza High Dose Preserva tive Free IM 03/09/2019 Influenza TIV (IM) 03/08/2015 Influenza, Injectable, Quadrivalent 04/04/2021 Influenza, Injectable, quadr ivalent (PF) 03/04/2022,02/06/2020 Influenza, Trivalent, Adjuvanted 02/17/2018 Influenza, Unspecified 02/10/2017 Pneumococcal Conjugate 13-Valent 10/09/2015 Pneumococcal Polysaccharide 08/26/2017,0 07/07/2013,06/14/2007,02/26 Zoster Vaccine Recombinant 04/06/2019,09/01/2018 Family History Medical History Relation Name Comments Heart disease Brother Cataracts Father Heart disease Father Testicular cancer Father Cataracts Mother Heart disease Mother Leukemia Other Breast cancer Paternal Grandmother Relation Name Status Comments Brother Father Mother Other Paternal Grandmother Social History Tobacco Use Types Packs/Day Years Used Date Smoking Tobacco: Never Smokeless Tobacco: Never Tobacco Cessation:Counseling Given: Not Answered Alcohol Use Standard Drinks/Week Comments Yes 1 (1 standard drink = 0.6 oz pur e alcohol) Social Connection and Isolat ion Panel [NHANES] Answer Date Recorded Frequency of Communication w ith Friends and Family Three times a week 03/09/2019 Frequency of Social Gatherin gs with Friends and Family Three times a week 03/09/2019 Attends Judaism Services More than 4 times per year [...] Answer Date Recorded Total Score 0 08/18/2021 [facility] [place] of Occupat ional Health - Occupational Stress [...] Sign Reading Time Taken Comments Blood Pressure 144/98 05/08/2024 12:37 PM EST Pulse 73 05/08/2024 12:37 PM EST Temperature 36.7 C (98 F) 08/18/2021 12:28 PM EST Respiratory Rate 16 02/08/2023 6:00 PM EDT Oxygen Saturation 97% 05/08/2024 12: 37 PM EST Inhaled Oxygen Concentration - - Weight 84.3 kg (185 lb 12.8 oz) 024 12:37 PM EST Height 152.4 cm (5') 05/08/2024 12:37 PM EST Body Mass Index 36.29 05/08/2024 12:37 PM EST Plan of Treatment Health Maintenance Due Date Last Done Comments Depression Screening 1957 Fall Risk Screening 2010 COVID-19 Vaccine (6 - Pfizer risk season) 2024 04/21/2024, 09/25/2021, 03/13/2021, Additional history exists Influenza Vaccine 02/12/2025 04/21/2024, , 03/04/2022, Additional history exists Tobacco Screening 05/08/2025 05/08/2024 DTaP,Tdap and Td Vaccines (2 - Td or Tdap) 07/21/2032 07/21/2022, 02/14/1997 Zoster (Shingles) Vaccine Completed 04/06/2019, Medical Devices Not on file Procedures Procedure Name Priority Date/Time Associated Diagnosis Comments US RETROPERITONEAL COMPLETE Routine 11/01/2024 9:49 AM EDT Stage 3a chronic kidney disease (CMS-HCC) from Last 3 Months Results * Ultrasound retroperitoneal complete (11/01/2024 9:49 AM EDT) Anatomical Region Laterality Modality Body Ultrasound 11/05/2024 8:49 AM EDT Narrative 11/05/2024 8:50 AM EDT RENAL ULTRASOUND HISTORY: Chronic kidney disease stage III COMPARISON: None FINDINGS: The right kidney measures 9.1 cm and left kidney 9.6 cm in length. Cortical thickness and corticomedullary differentiation are preserved. No renal stones, masses, or collecting system dilatation. The bladder is unremarkable. Bilateral ureteral jets are seen. IMPRESSION: Unremarkable renal ultrasound. Finalized by Pepito Fermin MD on 11/05/2024 8:50 AM Procedure Note Pepito Fermin MD - 11/05/2024 RENAL ULTRASOUND HISTORY: Chronic kidney disease stage III COMPARISON: None FINDINGS: The right kidney measures 9.1 cm and left kidney 9.6 cm in length.Cortical thickness and corticomedullary differentiation are preserved. Norenal stones, masses, or collecting system dilatation. The bladder is unremarkable. Bilateral ureteral jets are seen. IMPRESSION: Unremarkable renal ultrasound. Finalized by Pepito Ferimn MD on 11/05/2024 8:50 AM Morteza Calles MD IMG US ORDERABLES Final Result from Last 3 Months Insurance [employer] MEDICARE Advance Directives Documents on File Type Date Recorded Patient Development Educator Expl anation Living Will 10/11/2015 2:28 PM Care Teams Wearing Apparel Folder Relationship Specialty Start Date End Date Chanell Chen APRN-BERT [address] [place] [address] PCP - General Family Medicine 05/08/24
--- OUTSIDE RECORDS SUMMARY | 2025-01-15 07:02 | XMS_ITS | Encounter Summary ---
Author Organization [facility] Address [facility] [id number] [address] [place] [address] Care Team Providers Care Curriculum And Assessment Coordinator Name Role Phone GustavoChanell PAYMASTER OF PURSES-SENIOR SECURITY ENGINEER Primary Care Provider +1- [phone] Reason for Visit * Reason Comments Med Refill Encounter Details Date Type Department Care Team (Late st Contact Info) Description 08/01/2024 Refill [facility] [address] [place] [id number] Nathaniel Willoughby, PAYMASTER OF PURSES-SUPERVISOR LAMP SHADES [address] [place], [place] [id number] Med Refill Social History Tobacco Use Types [...] Family Three times a week 03/09/2019 Attends [employer] Services More than 4 times per year [...] Answer Date Recorded Total Score 0 08/18/2021 [facility] [place] of Occupat ional Health - Occupational Stress [...] encounter Miscellaneous Notes * Telephone Encounter - Deanne Adorno RN - 08/01/2024 9:56 AM EST Refill addressed on 05/08, Pharmacy confirmed receipt. Quantity 180 with 3 refills. documented in this encounter Plan of Treatment Not on file documented as of this encounter Visit Diagnoses Not on filedocumented in this encounter Additional Health Concerns Assessment Noted Time PHQ-9 Depression Total Score: 0 08/19/19 22 12:00 PM EST A Body Mass Index follow-up plan has been documented for the patient 06/01/2022 11:26 AM EST documented as of this encounter Care Teams Curriculum And Assessment Coordinator Relationship Specialty Start Date End Date Chanell Chen, CRAOLINE-SENIOR SECURITY ENGINEER [address] [id number] PCP - General Family Medicine 05/08/24 documented as of this encounter
--- OUTSIDE RECORDS SUMMARY | 2025-01-15 07:02 | XMS_ITS | CCD ---
Author Organization [facility] Care Team Providers Care Manager Stone Name Role Phone KENZIE ALMONTE Unavailable Unavailable [...] Admitting Unavailable SHAMMO, ADI Primary Care Unavailable ZIEBDR JAMIR HASTINGS Consulting Unavailable TERRENCE ALBERTO Consulting Unavailable SHAMMO, [...] Consulting Unavailable MISC, DR CABRERA Attending Unavailable [place], DR JOSE RAFAEL Mendes Consulting Unavailable MISC, [...] Consulting Unavailable MD Claribel Pickett Attending Provider [place], [facility] Primary Care Provider Claribel Pickett Attending Unavailable Claribel Pickett Admitting Unavailable [facility] Primary Care Unavailable Unavailable Primary Care Provider Unavailabl e Shammo CREW ATTENDANT-ROD FILLER, Nipomo Primary Care Provider [phone] Gustavo CREW ATTENDANT-PAYROLL ASSOCIATE, [place] Primary Care Provider Unallocated Christel BOBBY Provider Primary Care Provi ct BALTAZAR CORONADO Attending Unavailable BALTAZAR CORONADO Attending Unavailable BOONE JHA Referring Unavailable SHAMMO, ADI Primary Care Unavailable KEN JONES Attending Unavailable SHAMMO, ADI Referring Unavailable [facility] Primary Care Unavailable TABITHA CANO Referring Unavailable [facility] Primary Care Unavailable Allergies Allergy Classification Reported Allergen(s) Allergy Type Date of Onset Reaction(s) Facility (5 sources) Hay Fever And Allergy Relief; Translations: [HAY FEVER AND ALLERGY RELIEF] Propensity to adverse reactions to drug 06-20-2014 [facility] (5 sources) Other; Translations: [OTHER] Propensity to adverse reactions 12-24-2015 [facility] Medications Current Medications Medication Drug Class(es) [...] per tablet Indications: Coronary artery disease involving [place] coronary artery of [place] heart without angina pectoris , Pulmonary hypertension [...] Daily at bedtime February 07, 2024 12:00am avrqkxdc-guki-ZF-calc ium &mins (THERAGRAN-M) 9 mg iron-400 mcg tablet (4 sources) uajauzii-qbol-OA -ca lcium &mins (THERAGRAN-M) 9 mg iron-400 mcg tablet Indications: mineral deficiency , vitamin deficiency Take 1 tablet by mouth in the morning. Indications: lack in minerals, vitamin deficiency. Active hjwgkcca-hxuh-AS -calcium &mins (THERAGRAN-M) 9 mg iron-400 mcg [...] mg tablet Indications: Coronary artery disease involving [place] coronary artery of [place] heart without angina pectoris , Pulmonary hypertension ([facility]) , Benign essential hypertension , Dyslipidemia , [...] of intraocular lens] Onset: 05-26-2016 05-26-2016 Chronic Chronic kidney disease (1 source) Chronic kidney disease; Translations: [Chronic kidney disease, stage 3a] Onset: 11-01-2024 Conditions associated with dizziness or vertigo (1 source) Dizziness and giddiness; Translations: [DIZZINESS AND GIDDINESS] Onset: 11-06-2022 Episodic Coronary atherosclerosis and other heart disease (3 sources) Coronary arteriosclerosis; Translations: [Atherosclerotic heart disease of [place] coronary artery without angina pectoris] Onset: 05-08-2024 [...] [Depressive disorder] Onset: 10-01-2017 10-01-2017 Chronic Mycoses (3 sources) Pain in toe; Translations: [Tinea unguium] 07-06-2024 Episodic Other acquired deformities (1 source) Other forms of scoliosis, lumbar region; Translations: [OTHER FORMS SCOLIOSIS LUMBAR REGION] Onset: 06-25-2022 Chronic Other acquired deformities (4 sources) Scoliosis of lumbar spine; Translations: [Scoliosis, unspecified] Onset: 06-01-2022 06-01-2022 Chronic Other acquired deformities (3 sources) Deformity of metatarsal; Translations: [Unspecified acquired deformity of left lower leg] 07-06-2024 Episodic Other acquired deformities (3 sources) Deformity of metatarsal; Translations: [Unspecified acquired deformity of right lower leg] 07-06-2024 Episodic Other connective tissue disease (1 source) Other muscle spasm; Translations: [OTHER MUSCLE SPASM] Onset: 09-30-2022 Episodic Other lower respiratory disease (1 source) [...] Onset: 05-26-2016 Resolved: 02-28-2020 02-28-2020 Episodic Other lower respiratory disease (5 sources) Other forms of dyspnea; Translations: [OTHER FORMS OF DYSPNEA] Onset: 11-05-2022 Episodic Other non-traumatic joint disorders (5 sources) [...] Name Value Interpretation Reference Range Facility US RETROPERITONEAL COMPLETEo n 11-05-2024 US RETROPERITONEAL COMPLETE US RETROPERITONEAL COMPLETE RENAL ULTRASOUND HISTORY: Chronic [...] Pepito Ferimn MD on 11/05/2024 8:50 AM Normal [facility] POCT EKGOrdered By: Marsha Layne on 05-08-2024 [facility] Activated partial thrombopla stin time (aPTT) in platelet poor plasma by coagulation aOrdered By: Claribel Pickett on 02-07-2024 aPTT Coag (PPP) [Time] 36.0 s 25.1-36.5 [facility] Comment on above: A hematocrit value g reater than 55% may lead to inaccurate results in coagulation testing. Patients having hematocrit values >55% require a special collection tube for coagulation studies. Please contact the laboratory at [phone] for redraw instructions. Automated basophil %Ordered By: Claribel Pickett on 02-07-2024 Basophils/100 WBC (Bld) 0.6 % Normal . [facility] Comment on above: Order Comment: STAT FOR CT BX Performed By: #### C BC, PP #### [facility] [address] Automated basophil countOrde red By: Claribel Pickett on 02-07-2024 Basophils (Bld) [#/Vol] 0.0 10*3/uL Normal 0.0-0.2 [facility] Comment on above: Order Comment: STAT FOR CT BX Result Comment: PERF ORMED BY: [place] [address] PATHOLOGIST SKEIN YARD DRIER KATRINA PATTERSON M.D. Performed By: #### C BC, PP #### [address] Automated blood monocyte cou ntOrdered By: Claribel Pickett on 02-07-2024 Monocytes (Bld) [#/Vol] 0.6 10*3/uL Normal 0.0-0.8 [facility] Comment on above: Order Comment: STAT FOR CT BX Performed By: #### C BC, PP #### [address] Automated eosinophil %Ordere d By: Claribel Nieves on 02-07-2024 Eosinophils/100 WBC (Bld) 2.5 % Normal . [facility] Comment on above: Order Comment: STAT FOR CT BX Performed By: #### C BC, PP #### [address] Automated eosinophil countOr dered By: Claribel Nieves on 02-07-2024 Eosinophils (Bld) [#/Vol] 0.2 10*3/uL Normal 0.0-0.45 [facility] Comment on above: Order Comment: STAT FOR CT BX Performed By: #### C BC, PP #### [address] Automated monocyte %Ordered By: Claribel Nieves on 02-07-2024 Monocytes/100 WBC (Bld) 7.6 % Normal . [facility] Comment on above: Order Comment: STAT FOR CT BX Performed By: #### C BC, PP #### [address] Automated neutrophil %Ordere d By: Claribel Nieves on 02-07-2024 Neutrophils/100 WBC (Bld) 72.6 % Normal . [facility] Comment on above: Order Comment: STAT FOR CT BX Performed By: #### C BC, PP #### [place] [address] guided bone marrow bx/asp iron 02-07-2024 CT guided bone marrow bx/aspir [facility] [place] [address] [place] [address] CT Scan Report Signed Patient: Elli Lindsey MR#: [id number] : 1945 Acct:[id number] Age/Sex: 78 / F ADM Date: 02/07/24 Loc: CT Room: Type: [facility] Attending Dr: Claribel Pickett MD Copies to: [...] local anesthesia. Utilizing CT guidance, an 11-gauge Stroho biopsy needle was advanced into the right [...] Adams Jr., D.O.02/07/2024 2:08 PM Dictation Location: [place] [address] Transcribed By: [facility] 02/07/24 1408 Dictated By: Sebastian Adams Jr, DO 02/07/24 1407 Signed By: 02/07/24 1408 Normal [facility] Coagulation Profileon 2023 aPTT Coag (Bld) [Time] 36.0 s Normal 25.1-36.5 [facility] Comment on above: Order Comment: STAT FOR CT BX Result Comment: A he matocrit value greater than 55% may lead to inaccurate results in coagulation testing. Patients having hematocrit values >55% require a special collection tube for coagulation studies. Please contact the laboratory at [phone] for redraw instructions. PERFORMED BY: [place] [address] PATHOLOGIST SKEIN YARD DRIER KATRINA PATTERSON M.D. Performed By: #### C BC, PP #### [address] Complete Blood Count Auto Di ffon 02-07-2024 Mean Corpuscular HGB Conc 34.1 g/dL Normal 32.0-35.0 [facility] Comment on above: Order Comment: STAT FOR CT BX Performed By: #### C BC, PP #### [address] NRBC% 0.0 /100{WBC} Normal 0-0.5 [facility] Comment on above: Order Comment: STAT FOR CT BX Performed By: #### C BC, PP #### [address] Erythrocyte distribution wid th [Ratio] by Automated countOrdered By: Claribel Pickett on 02-07-2024 Erythrocyte distribution width (RBC) [Ratio] 13.8 % Normal 11.9-15.3 [facility] Comment on above: Order Comment: STAT FOR CT BX Performed By: #### C BC, PP #### [address] Erythrocytes [#/volume] in B lood by Automated countOrdered By: Claribel Pickett on 02-07-2024 RBC (Bld) [#/Vol] 3.45 10*6/uL Low 3.60-5.00 [facility] Comment on above: Order Comment: STAT FOR CT BX Performed By: #### C BC, PP #### [address] Hematocrit [Volume Fraction] of Blood by Automated countOrdered By: Claribel Pickett on 02-07-2024 Hematocrit (Bld) [Volume fraction] 33.8 % Low 34.0-46.4 [facility] Comment on above: Order Comment: STAT FOR CT BX Performed By: #### C BC, PP #### [facility] [address] Hemoglobin [Mass/volume] in BloodOrdered By: Claribel Pickett on 02-07-2024 Hemoglobin (Bld) [Mass/Vol] 11.5 g/dL Low 11.8-15.4 [facility] Comment on above: Order Comment: STAT FOR CT BX Performed By: #### C BC, PP #### [facility] [address] [place] [address] INR in Platelet poor plasma by Coagulation assayOrdered By: Claribel Pickett on 02-07-2024 INR Coag (PPP) [Relative time] 1.0 {INR} Normal [facility] Comment on above: INR Therapeutic Rang e [...] Performed By: #### C BC, PP #### [facility] [address] [place] [address] Leukocytes [#/volume] correc denita for nucleated erythrocytes in Blood by Automated counOrdered By: Claribel Pickett on 02-07-2024 WBC corrected for nucl RBC Auto (Bld) [#/Vol] 8.0 10*3/uL 3.8-11.6 [facility] Leukocytes [#/volume] in Blo od by Automated countOrdered By: Claribel Pickett on 02-07-2024 WBC (Bld) [#/Vol] 8.0 10*3/uL Normal 3.8-11.6 [facility] Comment on above: Order Comment: STAT FOR CT BX Performed By: #### C BC, PP #### [facility] [address] [place] [address] [place] Lymphocytes [#/volume] in Bl ood by Automated countOrdered By: Claribel Pickett on 02-07-2024 Lymphocytes (Bld) [#/Vol] 1.3 10*3/uL Normal 1.00-4.8 [facility] Comment on above: Order Comment: STAT FOR CT BX Performed By: #### C BC, PP #### [address] Lymphocytes/100 leukocytes i n Blood by Automated countOrdered By: Claribel Pickett on 02-07-2024 Lymphocytes/100 WBC (Bld) 16.7 % Normal . [facility] Comment on above: Order Comment: STAT FOR CT BX Performed By: #### C BC, PP #### [address] MCH [Entitic mass] by Automa denita countOrdered By: Claribel Pickett on 02-07-2024 MCH (RBC) [Entitic mass] 33.5 pg Normal 24.7-34.3 [facility] Comment on above: Order Comment: STAT FOR CT BX Performed By: #### C BC, PP #### [address] MCHC Auto (RBC) [Mass/Vol]Or dered By: Claribelvannessa Pickett on 02-07-2024 MCHC (RBC) [Mass/Vol] 34.1 g/dL 32.0-35.0 [facility] MCV [Entitic volume] by Auto mated countOrdered By: Claribel Pickett on 02-07-2024 MCV (RBC) [Entitic vol] 98.1 fL Normal 80-100 [facility] Comment on above: Order Comment: STAT FOR CT BX Performed By: #### C BC, PP #### [place] [address] [place] Neutrophils [#/volume] in Bl ood by Automated countOrdered By: Claribel Pickett on 02-07-2024 Neutrophils (Bld) [#/Vol] 5.8 10*3/uL Normal 1.8-7.7 [facility] Comment on above: Order Comment: STAT FOR CT BX Performed By: #### C BC, PP #### [address] Nucleated erythrocytes [Pres ence] in Blood by Automated countOrdered By: Claribel Pickett on 02-07-2024 Nucleated RBC Auto Ql (Bld) 0.0 /100{WBC} 0-0.5 [facility] Pathology Request for Lab Co rpon 02-07-2024 Pathology Request for Lab Samir Normal [facility] Comment on above: Order Comment: BM BI OPSY Result Comment: See report. Scanned copy available in EMR. PERFORMED BY: [place] [address] PATHOLOGIST SKEIN YARD DRIER KATRINA PATTERSON M.D. Performed By: #### P ATH TO [facility] #### [address] Platelet mean volume [Entiti c volume] in Blood by Automated countOrdered By: Claribel Pickett on 02-07-2024 Platelet mean volume (Bld) [Entitic vol] 7.2 fL Normal 6.3-10.7 [facility] Comment on above: Order Comment: STAT FOR CT BX Performed By: #### C BC, PP #### [address] Platelets [#/volume] in Bloo d by Automated countOrdered By: Claribel Pickett on 02-07-2024 Platelets (Bld) [#/Vol] 271 10*3/uL Normal 150-450 [facility] Comment on above: Order Comment: STAT FOR CT BX Performed By: #### C BC, PP #### [address] Prothrombin time (PT)Ordered By: Claribel Pickett on 02-07-2024 PT Coag (PPP) [Time] 11.8 s Normal 9.0-12.9 [facility] Comment on above: A hematocrit value g reater than 55% may lead to inaccurate results in coagulation testing. Patients having hematocrit values >55% require a special collection tube for coagulation studies. Please contact the laboratory at [phone] for redraw instructions. Order Comment: STAT FOR CT BX Result Comment: A he matocrit value greater than 55% may lead to inaccurate results in coagulation testing. Patients having hematocrit values >55% require a special collection tube for coagulation studies. Please contact the laboratory at [phone] for redraw instructions. Performed By: #### C BC, PP #### [facility] [address] [place] [address] XR KNEE RT 3 VWSon XR KNEE [...] Garcia MD on 01/26/2024 10:55 PM Normal [facility] US CAROTID ART BILon 05-26-2 023 [...] by: JAMIR SANCHEZ Date: 2022-11-06 05:46 Normal [facility] BNPon 11-05-2022 Natriuretic peptide B (Bld) [Mass/Vol] 55.0 pg/mL Normal <=1,800.0 [facility] Comment on above: Performed By: #### H STROPN, CMP, BNP, MG #### [facility] [address] [place] [address] [address] Linda Park ECHOCARDIO M/2D COMPLETEon 0 11-05-2022 ECHOCARDIO M/2D COMPLETE Patient: ELLI LINDSEY Exam Date: 11/05/2022 : 1945 Gender:F Ordering : ADI FIGUEROA Admission #: [id number] Family : Order #: [id number] CLICK HERE TO VIEW EXAM ECHOCARDIOGRAM REPORT [...] Lopez M.D. on 11/08/2022 at 15:17 Normal [facility] MAGNESIUMon 11-05-2022 Magnesium [Mass/Vol] 2.0 mg/dL Normal 1.8-2.4 [facility] Comment on above: Performed By: #### H STROPN, CMP, BNP, MG #### [facility] [address] [place] [address] Dr. Linda Park PROF 14(COMP METB)on 023 Albumin [Mass/Vol] 3.7 g/dL Normal 3.4-5.0 [facility] Comment on above: Performed By: #### H STROPN, CMP, BNP, MG #### [facility] [address] [place] [address] Dr. Linda Park Albumin/Globulin [Mass ratio] 1.1 {ratio} Normal [facility] Comment on above: Performed By: #### H STROPN, CMP, BNP, MG #### [facility] [address] [place] [address] Dr. Linda Park ALP [Catalytic activity/Vol] 84 U/L Normal 46-116 [facility] Comment on above: Performed By: #### H STROPN, CMP, BNP, MG #### [facility] [address] [place] [address] Dr. Linda Park ALT [Catalytic activity/Vol] 17 U/L Normal 14-59 [facility] Comment on above: Performed By: #### H STROPN, CMP, BNP, MG #### [facility] [address] [place] [address] [address] Linda Park Anion gap [Moles/Vol] 10.8 mmol/L Normal [facility] Comment on above: Performed By: #### H STROPN, CMP, BNP, MG #### [facility] [address] [place] [address] [address] Linda Park AST [Catalytic activity/Vol] 15 U/L Normal 15-37 [facility] Comment on above: Performed By: #### H STROPN, CMP, BNP, MG #### [facility] [address] [place] [address] [address] Linda Park Bilirubin [Mass/Vol] 0.2 mg/dL Normal 0.2-1.0 [facility] Comment on above: Performed By: #### H STROPN, CMP, BNP, MG #### [facility] [address] [place] [address] Dr. Linda Park Calcium [Mass/Vol] 9.1 mg/dL Normal 8.5-10.1 [facility] Comment on above: Performed By: #### H STROPN, CMP, BNP, MG #### [facility] [address] [place] [address] [address] Linda Park Chloride [Moles/Vol] 104 mmol/L Normal 98-107 [facility] Comment on above: Performed By: #### H STROPN, CMP, BNP, MG #### [facility] [address] [place] [address] [address] Linda Park CO2 [Moles/Vol] 30.8 mmol/L Normal 21.0-32.0 [facility] Comment on above: Performed By: #### H STROPN, CMP, BNP, MG #### [facility] [address] [place] [address] [address] Linda Park Creatinine [Mass/Vol] 0.94 mg/dL Normal 0.55-1.02 [facility] Comment on above: Performed By: #### H STROPN, CMP, BNP, MG #### [facility] [address] [place] [address] [address] Linda Park EGFR-AF HONDURAN >60 Normal >=60 [facility] Comment on above: Performed By: #### H STROPN, CMP, BNP, MG #### [facility] [address] [place] [address] [address] Linda Park EGFR-NON AF HONDURAN 58 mL/min/1.73m2 Critically low >=60 [facility] Comment on above: Performed By: #### H STROPN, CMP, BNP, MG #### [facility] [address] [place] [address] [address] Linda Park Globulin (S) [Mass/Vol] 3.5 g/dL Normal [facility] Comment on above: Performed By: #### H STROPN, CMP, BNP, MG #### [facility] [address] [place] [address] Dr. Linda Park Glucose [Mass/Vol] 78 mg/dL Normal 74-106 [facility] Comment on above: Performed By: #### H STROPN, CMP, BNP, MG #### [facility] [address] [place] [address] [address] Linda Park Potassium [Moles/Vol] 4.6 mmol/L Normal 3.5-5.1 [facility] Comment on above: Performed By: #### H STROPN, CMP, BNP, MG #### [facility] [address] [place] [address] Dr. Linda Park Protein [Mass/Vol] 7.2 g/dL Normal 6.4-8.2 [facility] Comment on above: Performed By: #### H STROPN, CMP, BNP, MG #### [facility] [address] [place] [address] Dr. Linda Park Sodium [Moles/Vol] 141 mmol/L Normal 136-145 [facility] Comment on above: Performed By: #### H STROPN, CMP, BNP, MG #### [facility] [address] [place] [address] Dr. Linda Park Urea nitrogen [Mass/Vol] 17.0 mg/dL Normal 7.0-18.0 [facility] Comment on above: Performed By: #### H STROPN, CMP, BNP, MG #### [facility] [address] [place], [place] [address] Dr. Linda Park Urea nitrogen/Creatinin e [Mass ratio] 18.1 mg/mg Normal [facility] Comment on above: Performed By: #### H STROPN, CMP, BNP, MG #### [facility] [address] [place] [address] [address] Linda Park TROPONIN, HIGH SENSITIVITYon 11-05-2022 HSTROP 9.2 pg/mL Normal 4.0-51.3 [facility] Comment on above: Result Comment: CUT- OFF POINTS HAVE BEEN ESTABLISHED BASED ON THE FOURTH UNIVERSAL DEFINITIONS OF MYOCARDIAL INFARCTION. THE UPPER REFERENCE LIMIT (URL) OF TROPONIN, DEFINED THE 99TH PERCENTILE OF cTnI DISTRIBUTION IN A REFERENCE POPULATION, HAS BEEN CONFIRMED THE DECISION THRESHOLD FOR SD DIAGNOSIS. Performed By: #### H STROPN, CMP, BNP, MG #### [facility] [address] [place] [address] [address] Linda Park XR CHEST 2 Von [...] TERRENCE ALBERTO Date: 2022-11-05 18:32 Normal [facility] HEMOGRAM AND PLATELon 2022 Hematocrit (Bld) [Volume fraction] 27.8 % Critically low 36.0-48.0 [facility] Comment on above: Performed By: #### H STROPN, CMP, BNP, MG #### [facility] [address] [address] [address] Linda Park Hemoglobin (Bld) [Mass/Vol] 8.8 g/dL Critically low 12.0-16.0 [facility] Comment on above: Performed By: #### H STROPN, CMP, BNP, MG #### [facility] [address] [place] [address] [address] Linda Park MCH (RBC) [Entitic mass] 29.0 pg Normal 26.7-34.0 [facility] Comment on above: Performed By: #### H STROPN, CMP, BNP, MG #### [facility] [address] [place] [address] [address] Linda Park MCHC (RBC) [Mass/Vol] 31.7 g/dL Normal 29.9-35.2 [facility] Comment on above: Performed By: #### H STROPN, CMP, BNP, MG #### [facility] [address] [place] [address] [address] Linda Park MCV (RBC) [Entitic vol] 91.7 fL Normal 81.0-99.0 [facility] Comment on above: Performed By: #### H STROPN, CMP, BNP, MG #### [facility] [address] [place] [address] Dr. Linda Park PLT 217 103/ul Normal 150-450 [facility] Comment on above: Performed By: #### H STROPN, CMP, BNP, MG #### [facility] [address] [place] [address] [address] Linda Park RBC 3.03 106/ul Critically low 4.20-5.40 [facility] Comment on above: Performed By: #### H STROPN, CMP, BNP, MG #### [facility] [address] [place] [address] Dr. Linda Park WBC 6.4 103/ul Normal 4.0-11.0 [facility] Comment on above: Performed By: #### H STROPN, CMP, BNP, MG #### [facility] [address] [place] [address] Dr. Linda Park LIPID PROFILEon 08-24-2022 CHOL-HDL RATIO NORM SEE BELOW Normal [facility] Comment on above: Result Comment: 3.3 - 4.4 LOW RISK 4.4 - 7.1 AVERAGE RISK 7.1 - 11.0 MODERATE RISK >11.0 HIGH RISK Performed By: #### H STROPN, CMP, BNP, MG #### [facility] [address] [place] [address] [address] Linda Park Cholesterol [Mass/Vol] 166 mg/dL Normal <=200 [facility] Comment on above: Performed By: #### H STROPN, CMP, BNP, MG #### [facility] [address] [place] [address] [address] Linda Park Cholesterol in HDL [Mass/Vol] 54 mg/dL Normal 40-60 [facility] Comment on above: Performed By: #### H STROPN, CMP, BNP, MG #### [facility] [address] [place] [address] [address] Linda Park Cholesterol in LDL [Mass/Vol] 70.8 mg/dL Normal [facility] Comment on above: Performed By: #### H STROPN, CMP, BNP, MG #### [facility] [address] [place] [address] [address] Linda Park Cholesterol.total/ Cholesterol in HDL [Mass ratio] 3.1 {ratio} Normal [facility] Comment on above: Performed By: #### H STROPN, CMP, BNP, MG #### [facility] [address] [address] [address] Linda Park HDL NORMAL > or = 60 mg/dl - LO W CARDIOVASCULAR RISK <40 mg/dl - HIGH CARDIOVASCULAR RISK Normal [facility] Comment on above: Performed By: #### H STROPN, CMP, BNP, MG #### [facility] [address] [address] [address] Linda Park LDL CALC NORMAL SEE BELOW Normal [facility] Comment on above: Result Comment: <100 mg/dl OPTIMAL 100 - 129 mg/dl NEAR OR ABOVE OPTIMAL 130 - 159 mg/dl BORDERLINE HIGH 160 - 189 mg/dl HIGH >190 mg/dl VERY HIGH Performed By: #### H STROPN, CMP, BNP, MG #### [facility] [address] [address] [address] Linda Park Triglyceride [Mass/Vol] 206 mg/dL Critically high <=150 [facility] Comment on above: Performed By: #### H STROPN, CMP, BNP, MG #### [facility] [address] [address] [address] Linda Park VLDL CALC 41.2 mg/dL Normal [facility] Comment on above: Performed By: #### H STROPN, CMP, BNP, MG #### [facility] [address] [address] [address] Linda Park PROF 14(COMP METB)on 023 Albumin [Mass/Vol] 3.7 g/dL Normal 3.4-5.0 [facility] Comment on above: Performed By: #### H STROPN, CMP, BNP, MG #### [facility] [address] [address] [address] Linda Park Albumin/Globulin [Mass ratio] 1.1 {ratio} Normal [facility] Comment on above: Performed By: #### H STROPN, CMP, BNP, MG #### [facility] [address] [address] [address] Linda Park ALP [Catalytic activity/Vol] 84 U/L Normal 46-116 [facility] Comment on above: Performed By: #### H STROPN, CMP, BNP, MG #### [facility] [address] [address] [address] Linda Park ALT [Catalytic activity/Vol] 17 U/L Normal 14-59 [facility] Comment on above: Performed By: #### H STROPN, CMP, BNP, MG #### [facility] [address] [address] [address] Linad Park Anion gap [Moles/Vol] 11.8 mmol/L Normal [facility] Comment on above: Performed By: #### H STROPN, CMP, BNP, MG #### [facility] [address] [address] [address] Linda Park AST [Catalytic activity/Vol] 19 U/L Normal 15-37 [facility] Comment on above: Performed By: #### H STROPN, CMP, BNP, MG #### [facility] [address] [place] [address] Dr. Linda Park Bilirubin [Mass/Vol] 0.4 mg/dL Normal 0.2-1.0 [facility] Comment on above: Performed By: #### H STROPN, CMP, BNP, MG #### [facility] [address] [address] [address] Linda Park Calcium [Mass/Vol] 9.5 mg/dL Normal 8.5-10.1 [facility] Comment on above: Performed By: #### H STROPN, CMP, BNP, MG #### [facility] [address] [place] [address] Dr. Linda Park Chloride [Moles/Vol] 104 mmol/L Normal 98-107 [facility] Comment on above: Performed By: #### H STROPN, CMP, BNP, MG #### [facility] [address] [place] [address] Dr. Linda Park CO2 [Moles/Vol] 28.6 mmol/L Normal 21.0-32.0 [facility] Comment on above: Performed By: #### H STROPN, CMP, BNP, MG #### [facility] [address] [place] [address] Dr. Linda Park Creatinine [Mass/Vol] 0.87 mg/dL Normal 0.55-1.02 [facility] Comment on above: Performed By: #### H STROPN, CMP, BNP, MG #### [facility] [address] [place] [address] Dr. Linda Park EGFR-AF HONDURAN >60 Normal >=60 [facility] Comment on above: Performed By: #### H STROPN, CMP, BNP, MG #### [facility] [address] [place] [address] Dr. Linda Park EGFR-NON AF HONDURAN >60 Normal >=60 [facility] Comment on above: Performed By: #### H STROPN, CMP, BNP, MG #### [facility] [address] [address] [address] Linda Park Globulin (S) [Mass/Vol] 3.3 g/dL Normal [facility] Comment on above: Performed By: #### H STROPN, CMP, BNP, MG #### [facility] [address] [address] [address] Linda Park Glucose [Mass/Vol] 95 mg/dL Normal 74-106 [facility] Comment on above: Performed By: #### H STROPN, CMP, BNP, MG #### [facility] [address] [place] [address] Dr. Linda Park Potassium [Moles/Vol] 4.4 mmol/L Normal 3.5-5.1 [facility] Comment on above: Performed By: #### H STROPN, CMP, BNP, MG #### [facility] [address] [place] [address] Dr. Linda Park Protein [Mass/Vol] 7.0 g/dL Normal 6.4-8.2 [facility] Comment on above: Performed By: #### H STROPN, CMP, BNP, MG #### [facility] [address] [place] [address] Dr. Linda Park Sodium [Moles/Vol] 140 mmol/L Normal 136-145 [facility] Comment on above: Performed By: #### H STROPN, CMP, BNP, MG #### [facility] [address] [place] [address] Dr. Linda Park Urea nitrogen [Mass/Vol] 14.0 mg/dL Normal 7.0-18.0 [facility] Comment on above: Performed By: #### H STROPN, CMP, BNP, MG #### [facility] [address] [place] [address] Dr. Linda Park Urea nitrogen/Creatinin e [Mass ratio] 16.1 mg/mg Normal [facility] Comment on above: Performed By: #### H STROPN, CMP, BNP, MG #### [facility] [address] [address] [address] Linda Park XR LSPINE MIN 4 [...] JAMIR SANCHEZ Date: 2022-04-30 06:55 Normal [facility] MAMM SCREEN 3D GONZALEZ CADon 03-05-2022 MG MAMM SCREEN 3D GONZALEZ CAD Patient: ELLI LINDSEY Exam Date: 03/05/2022 : 1945 Gender:F Ordering : DR DOCTOR ZAVALA Admission #: [id number] Family : DR. SAMINA GEE M.D. Order #: [id number] CLICK HERE TO VIEW EXAM RADIOLOGY REPORT [...] unknown cancer at age 72. LOCATION: [facility] BREAST COMPOSITION: Scattered areas fibroglandular density. [...] Arndt MD on 03/05/2022 at 12:09 Normal [facility] Basic Metabolic Profon 09-30 (cont.) Normal [facility] Comment on above: Result Comment: Aver age GFR for 70 or more years old: 75 mL/min/1.73sq mChronic Kidney Disease: <60 mL/min/1.73sq mKidney failure: <15 mL/min/1.73sq meGFR calculated using average adult body mass. Additional eGFR calculator available at:http://www.[employer]multiple_crcl_2012.htmPerformed at [facility] [address] [place] [address] Performed By: #### C DP, ALCB, BMP, TSH ####[address] [address] Anion gap 13 mmol/L Normal 9-17 [facility] Comment on above: Performed By: #### C DP, ALCB, BMP, TSH ####[address] [address] BUN/CRE Ratio 26 High 9-20 [facility] Comment on above: Performed By: #### C DP, ALCB, BMP, TSH ####[address] [address] Calcium 9.4 mg/dL Normal 8.6-10.4 [facility] Comment on above: Performed By: #### C DP, ALCB, BMP, TSH ####[place] [address] Chloride 101 mmol/L Normal 98-107 [facility] Comment on above: Performed By: #### C DP, ALCB, BMP, TSH ####[facility] [address] CO2 25 mmol/L Normal 20-31 [facility] Comment on above: Performed By: #### C DP, ALCB, BMP, TSH ####[address] [address] Creatinine 0.66 mg/dL Normal 0.50-0.90 [facility] Comment on above: Performed By: #### C DP, ALCB, BMP, TSH ####[address] [address] eGFR (non-black) mL/min/{1.73_m2} Normal >60 [facility] Comment on above: Performed By: #### C DP, ALCB, BMP, TSH ####[address] [address] Glucose mass conc 92 mg/dL Normal 70-99 [facility] Comment on above: Performed By: #### C DP, ALCB, BMP, TSH ####[address] [address] Potassium molar conc 4.1 mmol/L Normal 3.7-5.3 [facility] Comment on above: Performed By: #### C DP, ALCB, BMP, TSH ####[address] [address] Sodium 139 mmol/L Normal 135-144 [facility] Comment on above: Performed By: #### C DP, ALCB, BMP, TSH ####[address] [address] Urea nitrogen 17 mg/dL Normal 8-23 [facility] Comment on above: Performed By: #### C DP, ALCB, BMP, TSH ####[address] [address] Staging: NOT REPORTED Normal [facility] Comment on above: Performed By: #### C DP, ALCB, BMP, TSH ####[address] [address] CBC with Diffon 09-30-2017 Abs. Basophil 0.00 k/uL Normal 0.0-0.2 [facility] Comment on above: Result Comment: Perf ormed at [facility] [address] [place] [address] Performed By: #### C DP, ALCB, BMP, TSH ####[place] [address] Abs.Neutrophil (Seg) 4.30 k/uL Normal 1.8-7.7 [facility] Comment on above: Performed By: #### C DP, ALCB, BMP, TSH ####[address] [address] Basophils/100 WBC Auto (Bld) 1 % Normal 0-2 [facility] Comment on above: Performed By: #### C DP, ALCB, BMP, TSH ####[address] [address] Eosinophils 0.10 10*3/uL Normal 0.0-0.4 [facility] Comment on above: Performed By: #### C DP, ALCB, BMP, TSH ####[place] [address] Eosinophils/100 leukocytes 3 % Normal 1-4 [facility] Comment on above: Performed By: #### C DP, ALCB, BMP, TSH ####[facility] [address] [place] [address] Erythrocyte distribution width Auto Ratio (RBC) 13.6 % Normal 11.5-14.5 [facility] Comment on above: Performed By: #### C DP, ALCB, BMP, TSH ####[address] [address] Erythrocytes (RBC) 3.66 10*6/uL Low 4.0-5.2 [facility] Comment on above: Performed By: #### C DP, ALCB, BMP, TSH ####[facility] [place] [address] Hematocrit (HCT) 35.9 % Low 36-46 [facility] Comment on above: Performed By: #### C DP, ALCB, BMP, TSH ####[address] [address] Hemoglobin mass conc (Bld) 12.1 g/dL Normal 12.0-16.0 [facility] Comment on above: Performed By: #### C DP, ALCB, BMP, TSH ####[address] [address] Lymphocytes 1.00 10*3/uL Normal 1.0-4.8 [facility] Comment on above: Performed By: #### C DP, ALCB, BMP, TSH ####[address] [address] Lymphocytes/100 leukocytes 17 % Low 24-44 [facility] Comment on above: Performed By: #### C DP, ALCB, BMP, TSH ####[address] [id number] MCH 33.1 pg Normal 26-34 [facility] Comment on above: Performed By: #### C DP, ALCB, BMP, TSH ####[place] [address] MCHC mass conc (RBC) 33.7 g/dL Normal 31-37 [facility] Comment on above: Performed By: #### C DP, ALCB, BMP, TSH ####[address] [address] MCV 98.1 fL Normal 80-100 [facility] Comment on above: Performed By: #### C DP, ALCB, BMP, TSH ####[place] [address] Monocytes 0.30 10*3/uL Normal 0.2-0.8 [facility] Comment on above: Performed By: #### C DP, ALCB, BMP, TSH ####[place] [address] Monocytes/100 leukocytes 6 % Normal 1-7 [facility] Comment on above: Performed By: #### C DP, ALCB, BMP, TSH ####[place] [address] Neutrophil (Seg) 73 % High 36-66 [facility] Comment on above: Performed By: #### C DP, ALCB, BMP, TSH ####[place] [address] Platelet mean volume (PMV) 7.9 fL Normal 6.0-12.0 [facility] Comment on above: Performed By: #### C DP, ALCB, BMP, TSH ####[place] [address] Platelets 206 10*3/uL Normal 130-400 [facility] Comment on above: Performed By: #### C DP, ALCB, BMP, TSH ####[address] [address] WBC (Leukocytes) 5.8 10*3/uL Normal 3.5-11.0 [facility] Comment on above: Performed By: #### C DP, ALCB, BMP, TSH ####[address] [address] Auto Diff Performed NOT REPORTED Normal [facility] Comment on above: Performed By: #### C DP, ALCB, BMP, TSH ####[address] [address] Erythrocyte morphology NOT REPORTED Normal [facility] Comment on above: Performed By: #### C DP, ALCB, BMP, TSH ####[address] [address] Erythrocytes (RBC) NOT REPORTED Normal [facility] Comment on above: Performed By: #### C DP, ALCB, BMP, TSH ####[address] [address] Granulocytes/100 WBC (Bld) NOT REPORTED Normal 0.00-0.30 [facility] Comment on above: Performed By: #### C DP, ALCB, BMP, TSH ####[address] [address] Immature granulocytes #/vol (Bld) NOT REPORTED Normal 0 [facility] Comment on above: Performed By: #### C DP, ALCB, BMP, TSH ####[address] [address] Platelets NOT REPORTED Normal [facility] Comment on above: Performed By: #### C DP, ALCB, BMP, TSH ####[address] [address] WBC Morphology NOT REPORTED Normal [facility] Comment on above: Performed By: #### C DP, ALCB, BMP, TSH ####[address] [address] Drug Scr, Abuse, Uron 2017 Amphetamine(s),Ur Negative Normal NEG [facility] Comment on above: Result Comment: (Pos itive cutoff 1000 ng/mL) Performed By: #### D AU ####[address] [address] Barbiturate(s),Ur Negative Normal NEG [facility] Comment on above: Result Comment: (Pos itive cutoff 200 ng/mL) Performed By: #### D AU ####[address] [address] Base excess Negative Normal NEG [facility] Comment on above: Result Comment: (Pos itive cutoff 300 ng/mL) Performed By: #### D AU ####[address] [address] Benzodiazepine(s) Positive Abnormal NEG [facility] Comment on above: Result Comment: (Pos itive cutoff 200 ng/mL) Performed By: #### D AU ####[address] [address] Cannabinoid(s),Ur Negative Normal NEG [facility] Comment on above: Result Comment: (Pos itive cutoff 50 ng/mL) Performed By: #### D AU ####[address] [address] Interpretive Info Assay provides medic al screening only. The absence of expected drug(s) and/or Normal [facility] Comment on above: Result Comment: meta bolite(s) may indicate diluted or adulterated urine, limitations of testing or timing of collection.Testing for legal purposes should be confirmed by another method. To request confirmation of test result, please call the lab within 7 days of sample submission.Performed at [facility] [address] [place] [address] Performed By: #### D AU ####[address] [address] Opiate(s), Ur Negative Normal NEG [facility] Comment on above: Result Comment: (Pos itive cutoff 300 ng/mL) Performed By: #### D AU ####[address] [address] Oxycodone, Urine Positive Abnormal NEG [facility] Comment on above: Result Comment: (Pos itive cutoff 100 ng/mL) Performed By: #### D AU ####[address] [address] Phencyclidine, Ur Negative Normal NEG [facility] Comment on above: Result Comment: (Pos itive cutoff 25 ng/mL) Performed By: #### D AU ####[address] [address] Urine, methadone presence Negative Normal NEG [facility] Comment on above: Result Comment: (Pos itive cutoff 300 ng/mL) Performed By: #### D AU ####[address] [address] Buprenorphrine, Ur NOT REPORTED Normal NEG [facility] Comment on above: Performed By: #### D AU ####[address] [address] MDMA, Urine NOT REPORTED Normal NEG [facility] Comment on above: Performed By: #### D AU ####[address] [address] Methamphetamine, Ur NOT REPORTED Normal NEG [facility] Comment on above: Performed By: #### D AU ####[address] [address] Propoxyphene,Urine NOT REPORTED Normal NEG [facility] Comment on above: Performed By: #### D AU ####[address] [address] Urine, tricyclic antidepressants NOT REPORTED Normal NEG [facility] Comment on above: Performed By: #### D AU ####[address] [address] Ethanol Alcoholon 09-30-2017 Ethanol mg/dL Normal <10 [facility] Comment on above: Performed By: #### C DP, ALCB, BMP, TSH ####[address] [address] Ethanol percent <0.010 Normal [facility] Comment on above: Result Comment: Perf ormed at [id number] [place] [address] Performed By: #### C DP, ALCB, BMP, TSH ####[address] [address] Thyroid Stim. Horm.on 2017 Thyroid stimulating hormone (TSH) 0.87 m[IU]/L Normal 0.30-5.00 [facility] Comment on above: Result Comment: Perf ormed at [facility] [address] [place] [address] Performed By: #### C DP, ALCB, BMP, TSH ####[facility] [place] [address] [facility] DIGITAL DIAGNOSTIC BILAT ERALon 04-27-2017 [facility] DIGITAL DIAG[facility]STIC BILATERAL This is a [...] thesurgical bed site similar to beam prior 2015 study consistent with stablepostlumpectomy change. No nipple [...] sent to the patient regarding the results.[employer] recommends annual mammograms for women 40years and older.Interpreted by:TIM Robinigned by:Elli Aparicio MD04/27/17CC Recipients:Mark Francois MD - In Wander Gee - FaxFinal result Normal [facility] Vital Signs Date Time Vital Sign Value Performing Clinician Facility 09-14-2024 11:31-0400 Body height 139.7 cm Baltazar Coronado DPM Work Phone: [facility] 09-14-2024 11:31-0400 Respiratory rate 16 /min Baltazar Cliff DPM Work Phone: [facility] 07-06-2024 11:21-0500 Body height 139.7 cm Baltazar Coronado DPM Work Phone: [facility] 07-06-2024 11:21-0500 Respiratory rate 16 /min Baltazar Coronado DPM Work Phone: [facility] 05-08-2024 12:37-0500 Body height 152.4 cm Ken Jones MD Work Phone: [facility] 05-08-2024 12:37-0500 Body mass index (BMI) [Ratio] 36.29 kg/m2 Ken Jones MD Work Phone: [facility] 05-08-2024 12:37-0500 Body weight 84.28 kg Ken Jones MD Work Phone: [facility] 05-08-2024 12:37-0500 Diastolic blood pressure 98 mm[Hg] Ken Jones MD Work Phone: [facility] 05-08-2024 12:37-0500 Heart rate 73 /min Ken Jones MD Work Phone: [facility] 05-08-2024 12:37-0500 SaO2% (BldA) [Mass fraction] 97 % Ken Jones MD Work Phone: [facility] 05-08-2024 12:37-0500 Systolic blood pressure 144 mm[Hg] Ken Jones MD Work Phone: [facility] 02-07-2024 11:10-0400 Diastolic blood pressure 66 mm[Hg] CAROLINE Chen Work Phone: [facility] 02-07-2024 11:10-0400 Heart rate 65 /min CAROLINE Chen Work Phone: [facility] 02-07-2024 11:10-0400 Respiratory rate 16 /min CREW ATTENDANTJose Chen Work Phone: [facility] 02-07-2024 11:10-0400 SaO2% (BldA) [Mass fraction] 98 % CREW ATTENDANTJose Chen Work Phone: [facility] 02-07-2024 11:10-0400 Systolic blood pressure 127 mm[Hg] CREW ATTENDANTJose Chen Work Phone: [facility] 02-07-2024 09:190400 Body height 154.94 cm CREW ATTENDANTJose Chen Work Phone: [facility] 02-07-2024 09:0400 Body weight 81.19 kg CREW ATTENDANTJose Chen Work Phone: [facility] Encounters Encounter Date Encounter Type Care Provider Facility Start: 11-01-2024 End: 11-01-2024 ambulatory [facility] Start: 09-14-2024 End: 09-14-2024 Bamboo flowsheet Baltazar Coronado DPM Work Phone: [facility] Start: 09-14-2024 End: 09-14-2024 Bamboo flowsheet Baltazar Coronado DPM Work Phone: [facility] Start: 09-14-2024 End: 09-14-2024 Office outpatient visit 10 minutes Baltazar Coronado DPM Work Phone: [facility] Comment on above: Metatarsal deformity , left (Primary Dx); Pain due to onychomycosis of toenails of both feet; Metatarsal deformity, right Start: 09-14-2024 End: 09-14-2024 ambulatory BALTAZAR CORONADO Not Available Start: 07-06-2024 End: 07-06-2024 Bamboo flowsheet Baltazar [...] on above: Coronary artery dise ase involving [place] coronary artery of [place] heart without angina pectoris (Primary Dx); Pulmonary hypertension [facility]); Benign essential hypertension; Dyslipidemia; Dyspnea on exertion Start: 05-08-2024 End: 05-08-2024 ambulatory [place] [facility] Start: 05-05-2024 End: 05-05-2024 Telephone encounter Marsha Layne CMA [facility] Start: 04-12-2024 End: 04-26-2024 Telephone encounter Kimberlee Garza [facility] Work Phone: [facility] Comment on above: Hearing Aid Problem Start: 03-30-2024 End: 03-31-2024 Refill Denise Araiza RN [facility] Comment on above: Med Refill Start: 02-07-2024 End: 02-07-2024 Admission to same day surgery center CAROLINE Chen Work Phone: [facility] [place] Work Phone: Start: 02-07-2024 End: 02-07-2024 ambulatory CAROLINE Chen Work Phone: [facility] Work Phone: Start: 01-26-2024 End: 01-26-2024 ambulatory [facility] Start: 07-12-2023 Orders Only Shukri Jeong MD Work Phone: [facility] Start: 11-05-2022 End: 11-06-2022 ambulatory ADI SHAMMO Facility:[facility] Start: 09-24-2022 End: 09-25-2022 ambulatory RCJACOB ALECKARIEPATRICIO . Facility:[facility] Start: 08-25-2022 Encounter for genera l adult medical examination without abnormal findings ADICARLOS FIGUEROA [facility] Start: 08-25-2022 Encounter for preprocedural cardiovascular examination DR BEAU WILDER . [facility] Start: 08-25-2022 End: 08-25-[address] [...] 09-30-2017 Emergency department patient visit MEGHANN GEE [facility] Start: 07-20-2017 Patient encounter procedure Shukri Jeong MD Work Phone: [facility] Start: 04-27-2017 End: 04-28-2017 Ambulatory KENZIE ALMONTE [facility] Procedures Date Procedure Procedure Detail Performing [...] REFLEX KENZIE ALMONTE Start: 04-27-2017 Diagnosticmammographydigital KENZIE ASHU Y Plan of Treatment Date Care Activity Detail Author Start: 07-21-2032 DTaP,Tdap and Td Vaccines (2 - Td or Tdap) DTaP,Tdap and Td Vaccines (2 - Td or Tdap) [facility] Start: 05-08-2025 Tobacco Screening Tobacco Screening [facility] Start: 11-23-2024 End: 11-23-2024 Patient encounter procedure 11/23/2024 1:00 PM EDT Procedure Visit [facility] [address] [facility] [address] [place] [address] Baltazar Coronado DPM [address] [facility] [address] [place] [address] [facility] Start: 09-14-2024 End: 09-14-2024 Patient encounter procedure [facility] Comment on above: 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 (Primary Dx); Metatarsal deformity, left; Metatarsal deformity, right Start: 07-06-2024 End: 07-06-2024 Patient encounter procedure [facility] Comment on above: Arrived Start: 06-16-2024 COVID-19 Vaccine ( season) COVID-19 Vaccine () [facility] Start: 05-15-2024 End: 05-08-2025 Basic metabolic 2000 panel - Serum or Plasma Basic Metabolic Panel Lab Routine Coronary artery disease involving [place] coronary artery of [place] heart without angina pectoris Pulmonary hypertension ([facility]) Benign essential hypertension Dyslipidemia Dyspnea on exertion Expected: 05/15/2024, Expires: 05/08/2025 [facility] Work Phone: Comment on above: Expected: 05/15/2024 , Expires: 05/08/2025 Start: 05-09-2024 End: 05-09-2024 Patient encounter procedure 05/09/2024 10:00 AM EST Office Visit [facility] [address] [place] [id number] Ken Jones MD [address] [place] [address] [facility] Start: 05-08-2024 End: 05-08-2024 Patient encounter procedure 05/08/2024 12:45 PM EST Office Visit [facility] [address] [place] [id number] Ken Jones MD [address] [place] [address] [facility] Start: 03-02-2024 Adult BMI Screening Adult BMI Screen ing [facility] Start: 03-02-2024 Tobacco Screening Tobacco Screening [facility] Start: 02-13-2024 COVID-19 Vaccine ( season) COVID-19 Vaccine () [facility] Start: 02-13-2024 COVID-19 Vaccine ( season) COVID-19 Vaccine () [facility] Start: 02-13-2024 Influenza vaccination Influenza Vacc ine [facility] Start: 02-07-2024 [facility] Start: 02-07-2024 Bone marrow sampling [facility] Start: 06-01-2023 Adult BMI Follow Up Plan Adult BMI Follow Up Plan [facility] Start: 02-12-2023 COVID-19 Vaccine ( season) COVID-19 Vaccine () [facility] Start: 02-12-2023 Influenza vaccination Influenza Vacc ine [facility] Start: 08-18-2022 Depression Screening Depression Scre ening [facility] Start: 02-18-2022 Fall Risk Screening Fall Risk Screen ing [facility] Start: 02-18-2022 Medicare Annual Well ness Visit Medicare Annual Wellness Visit [facility] Start: 2010 Fall Risk Screening Fall Risk Screen ing [facility] End: 03-30-2025 Basic metabolic 2000 panel - Serum or Plasma Basic Metabolic Panel Lab Routine Coronary artery disease involving prairie island coronary artery of prairie island heart without angina pectoris 1 Occurrences starting 03/31/2024 until 03/30/2025 [facility] Work Phone: Comment on above: 1 Occurrences starti ng 03/31/2024 until 03/30/2025 End: 03-30-2025 Magnesium [Mass/volume] in Serum or Plasma Magnesium Lab Routine Coronary artery disease involving prairie island coronary artery of prairie island heart without angina pectoris 1 Occurrences starting 03/31/2024 until 03/30/2025 [facility] Comment on above: 1 Occurrences starti ng 03/31/2024 until 03/30/2025 Patient Education [facility] Bone Marrow Aspiration or Biopsy Know your Meds [facility] Work Phone: Immunizations Immunization Date Immunization Notes Care Provider Fa cility 03-04-2023 influenza virus vacc ine, unspecified formulation Denise Araiza RN [facility] 03-04-2022 influenza, injectabl e, quadrivalent, preservative free Shukri Jeong MD Work Phone: [facility] 03-04-2022 influenza virus vacc ine, unspecified formulation Shukri Jeong MD Work Phone: [facility] 04-04-2021 influenza, injectabl e, quadrivalent, contains preservative Shukri Jeong MD Work Phone: [facility] 03-13-2021 COVID-19, mRNA, LNP- S, PF, 30mcg/0.3mL Dose Shukri Jeong MD Work Phone: [facility] 08-13-2020 COVID-19, mRNA, LNP- S, PF, 30mcg/0.3mL Dose Shukri Jeong MD Work Phone: [facility] 07-22-2020 COVID-19, mRNA, LNP- S, PF, 30mcg/0.3mL Dose Shukri Jeong MD Work Phone: [facility] 02-06-2020 influenza, injectabl e, quadrivalent, preservative free Shukri Jeong MD Work Phone: [facility] 04-06-2019 zoster vaccine recombinant Shukri Jeong MD Work Phone: [facility] 03-09-2019 influenza, high dose seasonal, preservative-free Shukri Jeong MD Work Phone: [facility] 09-01-2018 zoster vaccine recombinant Shukri Jeong MD Work Phone: [facility] 02-17-2018 Seasonal trivalent influenza vaccine, adjuvanted, preservative free Shukri Jeong MD Work Phone: [facility] 08-26-2017 pneumococcal polysaccharide vaccine, 23 valent Shukri Jeong MD Work Phone: [facility] 02-10-2017 influenza virus vacc ine, unspecified formulation Shukri Jeong MD Work Phone: [facility] 02-20-2016 influenza, seasonal, injectable, preservative free Shukri Jeong MD Work Phone: [facility] 10-09-2015 pneumococcal conjuga te vaccine, 13 valent Shukri Jeong MD Work Phone: [facility] 03-08-2015 Influenza TIV (IM) Shukri soto MD Work Phone: [facility] 07-07-2013 pneumococcal polysaccharide vaccine, 23 diaz Jeong MD Work Phone: [facility] 06-14-2007 pneumococcal polysaccharide vaccine, 23 diaz Jeong MD Work Phone: [facility] 02-26-1999 pneumococcal polysaccharide vaccine, 23 diaz Jeong MD Work Phone: [facility] Payers Date Payer Category Payer Medicare (Managed Care) 1.2. [id number] 2024 Self-pay 2024 Private Health Insurance [id number] 2023 Medicare [id number] 2022 Unknown BCBS [employer] [facility] HMO/PPO/TRUST [id number] 2022-[facility] [phone] [place] [address] [id number] 2014 Medicare [id number] 2010 Medicare [id number]. [id number] 1959 Medicare [id number] 1959 Medicare [id number] 1959 Unknown [id number] 1945 Unknown [id number] 2.16.840.1.249980.3.579.2. 593 1945 Unknown [id number] 2.16.840.1.527900.3.579.2. 593 1945 Unknown [id number] 2.16.840.1.991972.3.579.2. 593 1945 Unknown [id number] 2.16.840.1.337461.3.579.2. 593 1945 Unknown [id number] 2.16.840.1.405433.3.579.2. 593 1945 Unknown [id number] 2.16.840.1.734436.3.579.2. 593 1945 Unknown [id number] 2.16.840.1.867481.3.579.2. 593 1945 Unknown [id number] 2.16.840.1.943117.3.579.2. 593 1945 Unknown [id number] 2.16.840.1.974047.3.579.2. 593 1945 Unknown [id number] 2.16.840.1.911792.3.579.2. 593 1945 Unknown [id number] 2.16.840.1.505666.3.579.2. 593 1945 Unknown [id number] 2.16.840.1.104922.3.579.2. 593 1945 Unknown [id number] 2.16.840.1.876251.3.579.2. 1259 1945 Unknown [id number] 2.16.840.1.608126.3.579.2. 1259 1945 Unknown [id number] 2.16.840.1.673428.3.579.2. 1286 1945 Unknown [id number] 2.16.840.1.218526.3.579.2. 1286 1945 Unknown [id number] 2.16.840.1.295068.3.579.2. 1286 Unknown [id number] 2.16.840.1.005404.3.579.2. 531 Social History Date Type Detail Facility Start: 02-22-2023 End: 02-07-2024 Tobacco smoking status NHIS Never smoked tobacco (finding) [facility] Start: 1945 Sex Assigned At Female F [facility] Start: 02-22-2023 End: 07-06-2024 History of Social function [facility] Start: 02-22-2023 End: 07-06-[address] [facility] Start: 1945 Sex assigned at Not on file P [facility] Start: 06-01-2022 Tobacco use and exposure Smoke less tobacco non-user [facility] Start: 03-02-2023 End: 05-08-2024 Alcohol intake Current drinker of alcohol (finding) [facility] Frequency of Communi cation with Friends and Family Three times a week [facility] Start: 03-09-[address] [facility] Start: 01-15-2015 Sex Female (finding) [facility] Clinical Notes 06-23-2022 to 09-14-2024 Baltazar Coronado DPM - 09/14/2024 11:40 AM Yemi Coronado DPM - 07/06/2024 11:30 AM Leandro Jones MD - 05/08/2024 12:45 PM EST Note Date & Type Note Facility 09-14-2024 History of Presen t illness Narrative Patient: [...] and treatment. Patient also has history of b/l tailors bunions with accomodation with wider shoes in the past. Patient states nails some numbness to the outer aspect of her feet in the area of prior metatarsal deformities Allergies: Not on File Past Medical History: Past Medical History: Diagnosis Date Breast cancer (CMS/HCC) Medications: No current outpatient medications on file. [...] Resource Strain: Low Risk (03/09/2019) Received from [facility] Overall Financial Resource Strain (CARDIA) Difficulty of Paying Living Expenses: Not hard at all Food Insecurity: No Food Insecurity (05/08/2024) Received from [facility] Hunger Screening Within the past 12 months we worried whether our food would run out before we got money to buy more.: Never True Within the past 12 months the food we bought just didn't last and we didn't have money to get more.: Never True Transportation Needs: No Transportation Needs (03/09/2019) Received from [facility] PRAPARE - Transportation Lack of Transportation (Medical): No Lack of Transportation (Non-Medical): No Physical Activity: Sufficiently Active (03/09/2019) Received from [facility] Exercise Vital Sign Days of Exercise per Week: 7 days Minutes of Exercise per Session: 50 min Stress: Stress Concern Present (03/09/2019) Received from [facility] [employer] - Occupational Stress Questionnaire Feeling of Stress : To some extent Social Connections: Socially Integrated (03/09/2019) Received from [employer] [facility] Social Connection and Isolation Panel [NHANES] Frequency of Communication with Friends and Family: Three times a week Frequency of Social Gatherings with Friends and Family: Three times a week Attends Rastafari Services: More than 4 times per year [...] do so and if any issues contact Podiatry. Briefly discuss surgical intervention in 2 week postoperative timeframe for silver tailor's bunionectomy and contact Podiatry if symptoms worsen Baltazar Coronado DPM documented in this encounter [facility] 07-06-2024 History of Presen t illness Narrative [...] Past Medical History: Diagnosis Date Breast cancer ([facility]) Medications: No current outpatient medications on file. [...] Resource Strain: Low Risk (03/09/2019) Received from [facility] Overall Financial Resource Strain (CARDIA) Difficulty of Paying Living Expenses: Not hard at all Food Insecurity: No Food Insecurity (05/08/2024) Received from [facility] Hunger Screening Within the past 12 months we worried whether our food would run out before we got money to buy more.: Never True Within the past 12 months the food we bought just didn't last and we didn't have money to get more.: Never True Transportation Needs: No Transportation Needs (03/09/2019) Received from [facility] PRAPARE - Transportation Lack of Transportation (Medical): No Lack of Transportation (Non-Medical): No Physical Activity: Sufficiently Active (03/09/2019) Received from [facility] Exercise Vital Sign Days of Exercise per Week: 7 days Minutes of Exercise per Session: 50 min Stress: Stress Concern Present (03/09/2019) Received from [facility] [employer] [facility] - Occupational Stress Questionnaire Feeling of Stress : To some extent Social Connections: Socially Integrated (03/09/2019) Received from [facility] Social Connection and Isolation Panel [NHANES] Frequency of Communication with Friends and Family: Three times a week Frequency of Social Gatherings with Friends and Family: Three times a week Attends Rastafari Services: More than 4 times per year [...] Baltazar Coronado DPM documented in this encounter [facility] 05-08-2024 History of Presen t illness Narrative Mariela Lindsey Date of visit: 05/08/2024 Date of : 1945 Age: 78 y.o. Patient Active Problem List Diagnosis Benign essential hypertension Chronic right-sided low back pain with right-sided sciatica Dyslipidemia Malignant neoplasm of female breast ([facility]) Temporomandibular joint disorder Pseudophakia Medicare annual wellness visit, subsequent Pain in both knees Severe obesity (BMI 35.0-39.9) with comorbidity ([facility]) Gastroesophageal reflux disease with esophagitis Thoracic outlet syndrome Depressive disorder Tension headache Sprain of right rotator cuff capsule Spinal stenosis of lumbar region Facet arthritis of lumbar region Scoliosis of lumbar spine Abnormal echocardiogram Pulmonary hypertension ([facility]) Allergies Allergen Reactions Hay Fever And Allergy [...] 0.5 tablets before bedtime. 90 tablet 0 orsjsuaz-uwog-CA-calcium &mins (THERAGRAN-M) 9 mg iron-400 mcg tablet [...] Past Medical History: Diagnosis Date Breast cancer ([facility]) 2013 RT GERD (gastroesophageal reflux disease) Hyperlipidemia Hypertension Menopausal syndrome (hot flashes) No data recorded No data recorded No data recorded Past Surgical History: Procedure Laterality Date APPENDECTOMY BELPHAROPTOSIS REPAIR Bilateral BLEPHAROPLASTY W/ LASER BREAST BIOPSY BREAST LUMPECTOMY Right 2013 RADIATION AND CHEMO Cardiac catheterization- Cors + Right heart + LV gram/press [id number] N/A 02/08/2023 Performed by Abdiel Lemus MD at [facility] CARDIAC CATH LABS CATARACT EXTRACTION Bilateral SECTION [...] 50 min Stress: Stress Concern Present (03/09/2019) [employer] - Occupational Stress Questionnaire Feeling of Stress : To some extent Social Connections: Socially Integrated (03/09/2019) Social Connection and Isolation Panel [NHANES] Frequency of Communication with Friends and Family: Three times a week Frequency of Social Gatherings with Friends and Family: Three times a week Attends Rastafari Services: More than 4 times per year [...] medications. IMPRESSIONS/PLAN 1. Coronary artery disease involving prairie [place] coronary artery of [place] heart without angina pectoris - POCT EKG 2. Pulmonary hypertension (CMS-HCC) 3. Benign essential hypertension 4. Dyslipidemia 5. 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 PCP: HEATHER ZIMMERMAN Referring Physician: KANIKA BillROD FILLER [address] [place] [address] [facility] 05-05-2024 Miscellaneous Notes Called patient to remind them to bring their most current copy of their medication list with them to their appt. Patient verbalizes understanding. documented [facility] this encounter [facility] 05-05-2024 Telephone encounter Note Called patient to remind them to bring their most current copy of their medication list with them to their appt. [facility] understanding[facility] Telephone encounter Note Patient called. I tracked order and aids arrived today from [employer]. Told patient the aids could be sent to [facility] where she can pick them up. [facility] hours were reviewed. [facility] 04-25-2024 Miscellaneous Notes Patient called. I tracked order and aids arrived today from [employer]. Told patient the aids could be sent to [facility] where she can pick them up. [facility] hours were reviewed. Pt wants us to call her at [phone] when her aids are back from repair [...] back from [employer] documented in this encounter [facility] 04-17-2024 Telephone encounter Note Pt wants us to call her at [phone] when her aids are back from repair [facility] Work Phone: 04-12-2024 Telephone encounter Note Pt [...] her when aids are back from [facility] 03-30-2024 Miscellaneous Notes Last OV 03/02/23 Pt will call to make appt Last [facility] 12/18/22 Orders placed for BMP and Mg.slm documented in this encounter [facility] 03-30-2024 Telephone encounter Note Last OV 03/02/23 Pt will call to make appt Last [facility] 12/18/22 Orders placed for BMP and Mg.slm [facility] 09-24-2022 Note CONSULTATION CONSULTATION DATE: 09/24/2022 [...] this infrequently. She is no longer on Madison, since at least July. Her GERALDO on [...] our patients to inform us about any xdae-dff-okpunij medications or herbal remedies/nutritional supplements/alternative remedies. 2. [...] options with their primary care provider. [facility] 08-20-2022 Note CONSULTATION CONSULTATION DATE: 08/20/2022 [...] Medications include Celebrex 200 mg daily, multivitamin, Madison 5/325 daily p.r.n., Excedrin and baclofen 10 [...] L4, L5. She is to continue her Madison 5/325 daily p.r.n. and I highly encouraged her to use a heat rub and heat application once to twice daily. Patient agrees with this plan of care and will be brought back to the clinic thereafter. [facility] 07-23-2022 Note PAIN MANAGEMENT CONS ULTATION [...] greatly aggravate her pain. Current medications include Madison 5/325 daily p.r.n., baclofen 10 mg q.h.s. [...] followed up in the office thereafter. [facility] 06-23-2022 Note CONSULTATION CONSULTATION DATE: 06/23/2022 [...] the possibility of a neurosurgical consult at [facility]. The patient's PAST MEDICAL HISTORY / [...] PLAN: We will start the patient on Madison 5/325 one tablet p.o. daily. The patient [...] would like to proceed. CC: DEIRDRE Bill [facility] Evaluation note No assessment inform ation available [facility] Work Phone: Evaluation note Diagnosis Metatarsal deformity, right- Primary Pain due to onychomycosis of toenails of both feet Metatarsal deformity, left documented in this encounter [facility] Healthcare[facility]* Diagnosis Coronary artery disease involving prairie [place] coronary artery of [place] heart without angina pectoris- Primary [facility] Diagnosis Coronary artery disease involving [place] coronary artery of [place] heart without angina pectoris- Primary Pulmonary hypertension (CMS-HCC) Other chronic pulmonary heart diseases Benign essential hypertension Essential hypertension, benign Dyslipidemia Other and unspecified hyperlipidemia Dyspnea on exertion Other dyspnea and respiratory abnormality documented in this encounter [facility]* Diagnosis Metatarsal deformity, left- Primary Pain due to onychomycosis of toenails of both feet Metatarsal deformity, right documented in this encounter [facility] HealthcareInstructionsNot on filedocumented in this encounterProMedior Health SystemInstructionsNot on filedocumented in this encounterProMer[facility] SystemInstructionsNot on filedocumented in this encounterProMercy Health 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 DATE CREATED AUTHOR AUTHOR'S ORGANIZ ATION 09/17/2024 [facility] EPIC DATE CREATED AUTHOR AUTHOR'S ORGANIZ ATION 11/08/2024 [facility] Care Teams (unrecognized sec tion and content) Team Status: Active Member Role Status Dates Chanell Chen APRN Primary Care Provider Active Team Status: Inactive Member Role Status Dates Claribel Pickett MD Attending Provider Active St art: February 07, 2024 End: February 07, 2024 Chanell Chen APRN Primary Care Provider Active Start: February 07, 2024 End: February 07, 2024 Manager Stone Relationship Specialty Start Date End Date Adi Figueroa APRN-CNP [address] [place] [id number] PCP - General Primary Care 06/01/22 Manager Stone Relationship Specialty Start Date End Date Adi Figueroa APRN-CNP [address] [place] [id number] PCP - General Primary Care 06/01/22 Manager Stone Relationship Specialty Start Date End Date Gustavo, Chanell, CREW ATTENDANT-PAYROLL ASSOCIATE [address] [place] [address] PCP - General Family Medicine 05/08/24 Manager Stone Relationship Specialty Start Date End Date Adi FigueroaCAROLINE-ROD FILLER [address] [place], [place] [id number] PCP - General Primary Care 06/01/22 Manager Stone Relationship Specialty Start Date End Date Unallocated, Christel Edmond MD [address] [place] [id number] PCP - General Family Medicine 09/14/24 Manager Stone Relationship Specialty Start Date End Date Unallocated, Christel Edmond MD [address] [place] [id number] PCP - General Family Medicine 09/14/24 Goals (unrecognized section and content) Goals may [...] F/U 1 YR L/S MAS, SCHED W/PT Reason Comments Toenail Care Non dm nail care FOR RECORDS PERTAINING TO PATIENTS WHO ARE [...] BE BASED ON THE PRIMARY CLINICAL RECORDS. [facility]. provides no warranty or guarantee of the accuracy or completeness of information in this document.
[2025-01-15 07:29] LABS: Hematocrit 31.0 % (36.0-48.0); Hemoglobin 10.4 g/dL (12.0-16.0); Immature Granulocytes Abs Auto 0.01 10^3/uL (0.00-0.03); Immature Granulocytes Pct Auto 0.2 % (0.0-0.5); Lymphocytes Absolute Auto 1.3 10^3/uL (1.2-3.8); Mean Corpuscular HGB Conc 33.5 g/dL (29.9-35.2); Mean Corpuscular Hemoglobin 33.7 pg (26.7-34.0); Mean Corpuscular Volume 100.3 fL (81.0-99.0); Platelet Count 198 10^3/uL (150-450); Red Blood Count 3.09 10^6/uL (4.20-5.40); White Blood Count 5.5 10^3/uL (4.0-11.0)
== END 2025-01-15 06:58 | disposition home or self-care (01) ==
LOC: LAB 06:59
PROVIDERS: PCP Nurse Practitioner; Visit Provider Ophthalmology
DX: H02.831 Dermatochalasis of right upper eyelid (principal); H02.834 Dermatochalasis of left upper eyelid; H02.429 Myogenic ptosis of unspecified eyelid
CPT/HCPCS: 36415; 85025

== ENCOUNTER 2025-03-01 08:36 | Outpatient (OUT) | payer MEDICARE, SELFPAY ==
--- NOTE | 2025-03-01 08:39 | MM_ITS ---
Patient Name: THI LINDSEY MR#: [id number] : 1945 Exam Date: 03/01/2025 Ordering Doctor: JANELLE BLUNT RADIOLOGY REPORT PROCEDURE: MM TOMOSYNTHESIS SCREENING BI COMPARISON: MM TOMOSYNTHESIS SCREENING BI, 02/28/2024. MM TOMOSYNTHESIS SCREENING BI, 02/24/2023. MG MAMM SCREEN 3D GONZALEZ CAD, 03/05/2022. MG MAMM GONZALEZ DIAG W CAD DIG, 11/23/2018. INDICATIONS: Screening Calculator Name NCI Breast Cancer Risk Assessment Tool 5 Year Breast Cancer Risk n/a% Lifetime Breast Cancer Risk n/a% Personal Breast Cancer Yes, 2013 Personal Ovarian Cancer No Treatments lumpectomy, radiation and chemotherapy Family Cancers Grandmother-paternal with breast cancer at age 76; Father with unknown cancer at age ~72. LOCATION: [facility] BREAST COMPOSITION: There are scattered areas of fibroglandular density. FINDINGS: RIGHT BREAST: No significant suspicious finding. LEFT BREAST: No significant suspicious finding. DIAGNOSTIC CATEGORY 1--NEGATIVE. RECOMMENDATIONS: ROUTINE MAMMOGRAM AND CLINICAL EVALUATION IN 12 MONTHS. Dictated by: Kennedy Tiwari MD on 03/01/2025 at 12:35 Approved by: Kennedy Tiwari MD on 03/01/2025 at 12:45
--- OUTSIDE RECORDS SUMMARY | 2025-03-01 08:40 | XMS_ITS | CCD ---
Author Organization [facility] Care Team Providers Care Pain Management Specialist Name Role Phone KENZIE ALMONTE Unavailable Unavailable SUNDHEIMER, MEGHANN B Unavailable Unavailable SUNDHEIMER, MEGHANN B Unavailable Unavailable BRIDGER PAARDA Unavailable Unavailabl e LAKSHMIPATHY ., NARIZZYATH Attending [...] ., DR BEAU Galvan Consulting Unavailable MCLEAN .DARION Consulting Unavailable SHAMMO, ADI Attending Unavailable SHAMMO, ADI Admitting Unavailable SHAMMO, ADI Primary Care Unavailable ZIEBDR JAMIR HASTINGS Consulting Unavailable TERRENCE ALBERTO Consulting Unavailable SHAMMO, ADI Consulting Unavailable SHAMMO, ADI Consulting Unavailable SHAMMO, AID Attending Unavailable SHAMMO, ADI Admitting Unavailable SHAMMO, [...] Consulting Unavailable MISC, DR CABRERA Attending Unavailable LURAY, DR JOSE RAFAEL Mendes Consulting Unavailable MISC, [...] Consulting Unavailable MD Claribel Pickett Attending Provider [phone], [facility] Primary Care Provider [phone] Claribel Pickett Attending Unavailable Claribel Pickett Admitting Unavailable [facility] Primary Care Unavailable Unavailable Primary Care Provider Unavailabl e Shammo HOUSEKEEPER-RECYCLING TECH, Veteran Primary Care Provider Gustavo HOUSEKEEPER-STOCK SELECTOR, [place] Primary Care Provider Unallocated Christel BOBBY Provider Primary Care Provi ct BALTAZAR CORONADO Attending Unavailable BALTAZAR CORONADO Attending Unavailable BOONE JHA Referring Unavailable SHAMMO, ADI Primary Care Unavailable KEN JONES Attending Unavailable SHAMMO, ADI Referring Unavailable [facility] Primary Care Unavailable TABITHA CANO Referring Unavailable [facility] Primary Care Unavailable Allergies Allergy Classification Reported Allergen(s) Allergy Type Date of Onset Reaction(s) Facility (5 sources) Hay Fever And Allergy Relief; Translations: [HAY FEVER AND ALLERGY RELIEF] Propensity to adverse reactions to drug 06-20-2014 [facility] (5 sources) Other; Translations: [OTHER] Propensity to adverse reactions 12-24-2015 [facility] Medications Current Medications Medication Drug Class(es) Dates [...] per tablet Indications: 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 Indications: lack in minerals, vitamin deficiency. 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 Patients having hematocrit values >55% require a special collection tube for coagulation studies. Please contact the laboratory at [phone] for redraw instructions. Automated basophil %Ordered By: Claribel Pickett on 02-07-2024 Basophils/100 WBC (Bld) 0.6 % Normal . [facility] [place] [facility] Comment on above: Order Comment: STAT FOR CT BX Performed By: #### C BC, PP #### [facility] [address] Automated basophil countOrde red By: Claribel Pickett on 02-07-2024 Basophils (Bld) [#/Vol] 0.0 10*3/uL Normal 0.0-0.2 [facility] Comment on above: Order Comment: STAT FOR CT BX Result Comment: PERF ORMED BY: [place] [address] PATHOLOGIST PET TRAINING INSTRUCTOR KATRINA PATTERSON M.D. Performed By: #### C BC, PP #### [address] Automated blood monocyte cou ntOrdered By: Claribel Pickett on 02-07-2024 Monocytes (Bld) [#/Vol] 0.6 10*3/uL Normal 0.0-0.8 [facility] [place] [facility] Comment on above: Order Comment: STAT FOR CT BX Performed By: #### C BC, PP #### [address] Automated eosinophil %Ordere d By: Claribel Nieves on 02-07-2024 Eosinophils/100 WBC (Bld) 2.5 % Normal . [facility] [place] [facility] Comment on above: Order Comment: STAT FOR CT BX Performed By: #### C BC, PP #### [address] Automated eosinophil countOr dered By: Claribel Nieves on 02-07-2024 Eosinophils (Bld) [#/Vol] 0.2 10*3/uL Normal 0.0-0.45 [facility] [place] [facility] Comment on above: Order Comment: STAT FOR CT BX Performed By: #### C BC, PP #### [address] Automated monocyte %Ordered By: Claribel Nieves on 02-07-2024 Monocytes/100 WBC (Bld) 7.6 % Normal . [facility] [place] [facility] Comment on above: Order Comment: STAT FOR CT BX Performed By: #### C BC, PP #### [address] Automated neutrophil %Ordere d By: Claribel Nieves on 02-07-2024 Neutrophils/100 WBC (Bld) 72.6 % Normal . [facility] [place] [facility] Comment on above: Order Comment: STAT FOR CT BX Performed By: #### C BC, PP #### [place] [address] guided bone marrow bx/asp iron 02-07-2024 CT guided bone marrow bx/aspir [facility] Main [place] [address] [place] [address] CT Scan Report Signed Patient: Elli Lindsey MR#: [id number] : 1945 Acct:[id number] Age/Sex: 78 / F ADM Date: 02/07/24 Loc: CT Room: Type: [facility] Attending Dr: Claribel Pickett MD Copies to: [...] local anesthesia. Utilizing CT guidance, an 11-gauge [employer] Coding biopsy needle was advanced into the right [...] Adams Jr., D.O.02/07/2024 2:08 PM Dictation Location: [place] [address] Transcribed By: [facility] 02/07/24 1408 Dictated By: Sebastian Adams Jr, DO 02/07/24 1407 Signed By: 02/07/24 1408 Normal [facility] Coagulation Profileon 2023 aPTT Coag (Bld) [Time] 36.0 s Normal 25.1-36.5 [facility] Comment on above: Order Comment: STAT FOR CT BX Result Comment: A he matocrit value greater than 55% may lead to inaccurate results in coagulation testing. Patients having hematocrit values >55% require a special collection tube for coagulation studies. Please contact the laboratory at [phone] for redraw instructions. PERFORMED BY: [place] [address] PATHOLOGIST PET TRAINING INSTRUCTOR KATRINA PATTERSON M.D. Performed By: #### C BC, PP #### [address] Complete Blood Count Auto Di ffon 02-07-2024 Mean Corpuscular HGB Conc 34.1 g/dL Normal 32.0-35.0 [facility] Comment on above: Order Comment: STAT FOR CT BX Performed By: #### C BC, PP #### [address] NRBC% 0.0 /100{WBC} Normal 0-0.5 [facility] Comment on above: Order Comment: STAT FOR CT BX Performed By: #### C BC, PP #### [address] Erythrocyte distribution wid th [Ratio] by Automated countOrdered By: Claribel Pickett on 02-07-2024 Erythrocyte distribution width (RBC) [Ratio] 13.8 % Normal 11.9-15.3 [facility] Comment on above: Order Comment: STAT FOR CT BX Performed By: #### C BC, PP #### [address] Erythrocytes [#/volume] in B lood by Automated countOrdered By: Claribel Pickett on 02-07-2024 RBC (Bld) [#/Vol] 3.45 10*6/uL Low 3.60-5.00 [facility] Comment on above: Order Comment: STAT FOR CT BX Performed By: #### C BC, PP #### [address] Hematocrit [Volume Fraction] of Blood by Automated countOrdered By: Claribel Pickett on 02-07-2024 Hematocrit (Bld) [Volume fraction] 33.8 % Low 34.0-46.4 [facility] [place] [facility] Comment on above: Order Comment: STAT FOR CT BX Performed By: #### C BC, PP #### [facility] [address] Hemoglobin [Mass/volume] in BloodOrdered By: Claribel Pickett on 02-07-2024 Hemoglobin (Bld) [Mass/Vol] 11.5 g/dL Low 11.8-15.4 [facility] [place] [facility] Comment on above: Order Comment: STAT FOR CT BX Performed By: #### C BC, PP #### [facility] [address] [place] [address] INR in Platelet poor plasma by Coagulation assayOrdered By: Claribel Pickett on 02-07-2024 INR Coag (PPP) [Relative time] 1.0 {INR} Normal [facility] [place] [facility] Comment on above: INR Therapeutic Rang [...] Performed By: #### C BC, PP #### [facility] [address] [place] [address] Leukocytes [#/volume] correc denita for nucleated erythrocytes in Blood by Automated counOrdered By: Claribel Pickett on 02-07-2024 WBC corrected for nucl RBC Auto (Bld) [#/Vol] 8.0 10*3/uL 3.8-11.6 [facility] [place] [facility] Leukocytes [#/volume] in Blo od by Automated countOrdered By: Claribel Pickett on 02-07-2024 WBC (Bld) [#/Vol] 8.0 10*3/uL Normal 3.8-11.6 [facility] Comment on above: Order Comment: STAT FOR CT BX Performed By: #### C BC, PP #### [facility] [address] [place] [address] [place] Lymphocytes [#/volume] in Bl ood by Automated countOrdered By: Claribel Pickett on 02-07-2024 Lymphocytes (Bld) [#/Vol] 1.3 10*3/uL Normal 1.00-4.8 [facility] [place] [facility] Comment on above: Order Comment: STAT FOR CT BX Performed By: #### C BC, PP #### [address] Lymphocytes/100 leukocytes i n Blood by Automated countOrdered By: Claribel Pickett on 02-07-2024 Lymphocytes/100 WBC (Bld) 16.7 % Normal . [facility] [place] [facility] Comment on above: Order Comment: STAT FOR CT BX Performed By: #### C BC, PP #### [address] MCH [Entitic mass] by Automa denita countOrdered By: Claribel Pickett on 02-07-2024 MCH (RBC) [Entitic mass] 33.5 pg Normal 24.7-34.3 [facility] [place] [facility] Comment on above: Order Comment: STAT FOR CT BX Performed By: #### C BC, PP #### [address] MCHC Auto (RBC) [Mass/Vol]Or dered By: Claribelvannessa Pickett on 02-07-2024 MCHC (RBC) [Mass/Vol] 34.1 g/dL 32.0-35.0 [facility] MCV [Entitic volume] by Auto mated countOrdered By: Claribel Pickett on 02-07-2024 MCV (RBC) [Entitic vol] 98.1 fL Normal 80-100 [facility] Comment on above: Order Comment: STAT FOR CT BX Performed By: #### C BC, PP #### [place] [address] [place] Neutrophils [#/volume] in Bl ood by Automated countOrdered By: Claribel Pickett on 02-07-2024 Neutrophils (Bld) [#/Vol] 5.8 10*3/uL Normal 1.8-7.7 [facility] [place] [facility] Comment on above: Order Comment: STAT FOR CT BX Performed By: #### C BC, PP #### [address] Nucleated erythrocytes [Pres ence] in Blood by Automated countOrdered By: Claribel Pickett on 02-07-2024 Nucleated RBC Auto Ql (Bld) 0.0 /100{WBC} 0-0.5 [facility] Pathology Request for Lab Co rpon 02-07-2024 Pathology Request for Lab Samir Normal [facility] Comment on above: Order Comment: BM BI OPSY Result Comment: See report. Scanned copy available in EMR. PERFORMED BY: [place] [address] PATHOLOGIST PET TRAINING INSTRUCTOR KATRINA PATTERSON M.D. Performed By: #### P ATH TO [facility] #### [address] Platelet mean volume [Entiti c volume] in Blood by Automated countOrdered By: Claribel Pickett on 02-07-2024 Platelet mean volume (Bld) [Entitic vol] 7.2 fL Normal 6.3-10.7 [facility] [place] [facility] Comment on above: Order Comment: STAT FOR CT BX Performed By: #### C BC, PP #### [address] Platelets [#/volume] in Bloo d by Automated countOrdered By: Claribel Pickett on 02-07-2024 Platelets (Bld) [#/Vol] 271 10*3/uL Normal 150-450 [facility] Comment on above: Order Comment: STAT FOR CT BX Performed By: #### C BC, PP #### [address] Prothrombin time (PT)Ordered By: Claribel Pickett on 02-07-2024 PT Coag (PPP) [Time] 11.8 s Normal 9.0-12.9 [facility] Comment on above: A hematocrit value g reater than 55% may lead to inaccurate results in coagulation testing. Patients having hematocrit values >55% require a special collection tube for coagulation studies. Please contact the laboratory at [phone] for redraw instructions. Order Comment: STAT FOR CT BX Result Comment: A he matocrit value greater than 55% may lead to inaccurate results in coagulation testing. Patients having hematocrit values >55% require a special collection tube for coagulation studies. Please contact the laboratory at [phone] for redraw instructions. Performed By: #### C BC, PP #### [facility] [address] [place] [address] XR KNEE RT 3 VWSon XR KNEE [...] Garcia MD on 01/26/2024 10:55 PM Normal [facility] US CAROTID ART BILon 05-26-2 023 US [...] by: JAMIR SANCHEZ Date: 2022-11-06 05:46 Normal [facility] BNPon 11-05-2022 Natriuretic peptide B (Bld) [Mass/Vol] 55.0 pg/mL Normal <=1,800.0 [facility] Comment on above: Performed By: #### H STROPN, CMP, BNP, MG #### [facility] [address] [place] [address] [address] Linda Park ECHOCARDIO M/2D COMPLETEon 0 11-05-2022 ECHOCARDIO M/2D COMPLETE Patient: ELLI LINDSEY Exam Date: 11/05/2022 : 1945 Gender:F Ordering : ADI FIGUEROA Admission #: [id number] Family : Order #: [id number] CLICK HERE TO VIEW EXAM ECHOCARDIOGRAM REPORT [...] Lopez M.D. on 11/08/2022 at 15:17 Normal [facility] MAGNESIUMon 11-05-2022 Magnesium [Mass/Vol] 2.0 mg/dL Normal 1.8-2.4 [facility] Comment on above: Performed By: #### H STROPN, CMP, BNP, MG #### [facility] [address] [place] [address] Dr. Linda Park PROF 14(COMP METB)on 023 Albumin [Mass/Vol] 3.7 g/dL Normal 3.4-5.0 [facility] Comment on above: Performed By: #### H STROPN, CMP, BNP, MG #### [facility] [address] [place] [address] Dr. Linda Park Albumin/Globulin [Mass ratio] 1.1 {ratio} Normal [facility] Comment on above: Performed By: #### H STROPN, CMP, BNP, MG #### [facility] [address] [place] [address] Dr. Linda Park ALP [Catalytic activity/Vol] 84 U/L Normal 46-116 [facility] Comment on above: Performed By: #### H STROPN, CMP, BNP, MG #### [facility] [address] [place] [address] Dr. Linda Park ALT [Catalytic activity/Vol] 17 U/L Normal 14-59 [facility] Comment on above: Performed By: #### H STROPN, CMP, BNP, MG #### [facility] [address] [place] [address] [address] Linda Park Anion gap [Moles/Vol] 10.8 mmol/L Normal [facility] Comment on above: Performed By: #### H STROPN, CMP, BNP, MG #### [facility] [address] [place] [address] [address] Linda Park AST [Catalytic activity/Vol] 15 U/L Normal 15-37 [facility] Comment on above: Performed By: #### H STROPN, CMP, BNP, MG #### [facility] [address] [place] [address] [address] Linda Park Bilirubin [Mass/Vol] 0.2 mg/dL Normal 0.2-1.0 [facility] Comment on above: Performed By: #### H STROPN, CMP, BNP, MG #### [facility] [address] [place] [address] Dr. Linda Park Calcium [Mass/Vol] 9.1 mg/dL Normal 8.5-10.1 [facility] Comment on above: Performed By: #### H STROPN, CMP, BNP, MG #### [facility] [address] [place] [address] [address] Linda Park Chloride [Moles/Vol] 104 mmol/L Normal 98-107 [facility] Comment on above: Performed By: #### H STROPN, CMP, BNP, MG #### [facility] [address] [place] [address] [address] Linda Park CO2 [Moles/Vol] 30.8 mmol/L Normal 21.0-32.0 [facility] Comment on above: Performed By: #### H STROPN, CMP, BNP, MG #### [facility] [address] [place] [address] [address] Linda Park Creatinine [Mass/Vol] 0.94 mg/dL Normal 0.55-1.02 [facility] Comment on above: Performed By: #### H STROPN, CMP, BNP, MG #### [facility] [address] [place] [address] [address] Linda Park EGFR-AF ARMENIAN >60 Normal >=60 [facility] Comment on above: Performed By: #### H STROPN, CMP, BNP, MG #### [facility] [address] [place] [address] [address] Linda Park EGFR-NON AF ARMENIAN 58 mL/min/1.73m2 Critically low >=60 [facility] Comment on above: Performed By: #### H STROPN, CMP, BNP, MG #### [facility] [address] [place] [address] [address] Linda Park Globulin (S) [Mass/Vol] 3.5 g/dL Normal [facility] Comment on above: Performed By: #### H STROPN, CMP, BNP, MG #### [facility] [address] [place] [address] Dr. Linda Park Glucose [Mass/Vol] 78 mg/dL Normal 74-106 [facility] Comment on above: Performed By: #### H STROPN, CMP, BNP, MG #### [facility] [address] [place] [address] [address] Linda Park Potassium [Moles/Vol] 4.6 mmol/L Normal 3.5-5.1 [facility] Comment on above: Performed By: #### H STROPN, CMP, BNP, MG #### [facility] [address] [place] [address] Dr. Linda Park Protein [Mass/Vol] 7.2 g/dL Normal 6.4-8.2 [facility] Comment on above: Performed By: #### H STROPN, CMP, BNP, MG #### [facility] [address] [place] [address] Dr. Linda Park Sodium [Moles/Vol] 141 mmol/L Normal 136-145 [facility] Comment on above: Performed By: #### H STROPN, CMP, BNP, MG #### [facility] [address] [place] [address] Dr. Linda Park Urea nitrogen [Mass/Vol] 17.0 mg/dL Normal 7.0-18.0 [facility] Comment on above: Performed By: #### H STROPN, CMP, BNP, MG #### [facility] [address] [place], [place] [address] Dr. Linda Park Urea nitrogen/Creatinin e [Mass ratio] 18.1 mg/mg Normal [facility] Comment on above: Performed By: #### H STROPN, CMP, BNP, MG #### [facility] [address] [place] [address] [address] Linda Park TROPONIN, HIGH SENSITIVITYon 11-05-2022 HSTROP 9.2 pg/mL Normal 4.0-51.3 [facility] Comment on above: Result Comment: CUT- OFF POINTS HAVE BEEN ESTABLISHED BASED ON THE FOURTH UNIVERSAL DEFINITIONS OF MYOCARDIAL INFARCTION. THE UPPER REFERENCE LIMIT (URL) OF TROPONIN, DEFINED THE 99TH PERCENTILE OF cTnI DISTRIBUTION IN A REFERENCE POPULATION, HAS BEEN CONFIRMED THE DECISION THRESHOLD FOR MS DIAGNOSIS. Performed By: #### H STROPN, CMP, BNP, MG #### [facility] [address] [place] [address] [address] Linda Park XR CHEST 2 Von [...] TERRENCE ALBERTO Date: 2022-11-05 18:32 Normal [facility] HEMOGRAM AND PLATELon 2022 Hematocrit (Bld) [Volume fraction] 27.8 % Critically low 36.0-48.0 [facility] Comment on above: Performed By: #### H STROPN, CMP, BNP, MG #### [facility] [address] [place] [address] [address] Linda Park Hemoglobin (Bld) [Mass/Vol] 8.8 g/dL Critically low 12.0-16.0 [facility] Comment on above: Performed By: #### H STROPN, CMP, BNP, MG #### [facility] [address] [place] [address] [address] Linda Park MCH (RBC) [Entitic mass] 29.0 pg Normal 26.7-34.0 [facility] Comment on above: Performed By: #### H STROPN, CMP, BNP, MG #### [facility] [address] [place] [address] [address] Linda Park MCHC (RBC) [Mass/Vol] 31.7 g/dL Normal 29.9-35.2 [facility] Comment on above: Performed By: #### H STROPN, CMP, BNP, MG #### [facility] [address] [place] [address] [address] Linda Park MCV (RBC) [Entitic vol] 91.7 fL Normal 81.0-99.0 [facility] Comment on above: Performed By: #### H STROPN, CMP, BNP, MG #### [facility] [address] [place] [address] Dr. Linda Park PLT 217 103/ul Normal 150-450 [facility] Comment on above: Performed By: #### H STROPN, CMP, BNP, MG #### [facility] [address] [place] [address] [address] Linda Park RBC 3.03 106/ul Critically low 4.20-5.40 [facility] Comment on above: Performed By: #### H STROPN, CMP, BNP, MG #### [facility] [address] [place] [address] Dr. Linda Park WBC 6.4 103/ul Normal 4.0-11.0 [facility] Comment on above: Performed By: #### H STROPN, CMP, BNP, MG #### [facility] [address] [place] [address] Dr. Linda Park LIPID PROFILEon 08-24-2022 CHOL-HDL RATIO NORM SEE BELOW Normal [facility] Comment on above: Result Comment: 3.3 - 4.4 LOW RISK 4.4 - 7.1 AVERAGE RISK 7.1 - 11.0 MODERATE RISK >11.0 HIGH RISK Performed By: #### H STROPN, CMP, BNP, MG #### [facility] [address] [place] [address] [address] Linda Park Cholesterol [Mass/Vol] 166 mg/dL Normal <=200 [facility] Comment on above: Performed By: #### H STROPN, CMP, BNP, MG #### [facility] [address] [place] [address] [address] Linda Park Cholesterol in HDL [Mass/Vol] 54 mg/dL Normal 40-60 [facility] Comment on above: Performed By: #### H STROPN, CMP, BNP, MG #### [facility] [address] [place] [address] [address] Linda Park Cholesterol in LDL [Mass/Vol] 70.8 mg/dL Normal [facility] Comment on above: Performed By: #### H STROPN, CMP, BNP, MG #### [facility] [address] [address] [address] Linda Park Cholesterol.total/ Cholesterol in HDL [Mass ratio] 3.1 {ratio} Normal [facility] Comment on above: Performed By: #### H STROPN, CMP, BNP, MG #### [facility] [address] [address] [address] Linda Park HDL NORMAL > or = 60 mg/dl - LO W CARDIOVASCULAR RISK <40 mg/dl - HIGH CARDIOVASCULAR RISK Normal [facility] Comment on above: Performed By: #### H STROPN, CMP, BNP, MG #### [facility] [address] [address] [address] Linda Park LDL CALC NORMAL SEE BELOW Normal [facility] Comment on above: Result Comment: <100 mg/dl OPTIMAL 100 - 129 mg/dl NEAR OR ABOVE OPTIMAL 130 - 159 mg/dl BORDERLINE HIGH 160 - 189 mg/dl HIGH >190 mg/dl VERY HIGH Performed By: #### H STROPN, CMP, BNP, MG #### [facility] [address] [address] [address] Linda Park Triglyceride [Mass/Vol] 206 mg/dL Critically high <=150 [facility] Comment on above: Performed By: #### H STROPN, CMP, BNP, MG #### [facility] [address] [address] [address] Linda Park VLDL CALC 41.2 mg/dL Normal [facility] Comment on above: Performed By: #### H STROPN, CMP, BNP, MG #### [facility] [address] [address] [address] Linda Park PROF 14(COMP METB)on 023 Albumin [Mass/Vol] 3.7 g/dL Normal 3.4-5.0 [facility] Comment on above: Performed By: #### H STROPN, CMP, BNP, MG #### [facility] [address] [address] [address] Linda Park Albumin/Globulin [Mass ratio] 1.1 {ratio} Normal [facility] Comment on above: Performed By: #### H STROPN, CMP, BNP, MG #### [facility] [address] [address] [address] Linda Park ALP [Catalytic activity/Vol] 84 U/L Normal 46-116 [facility] Comment on above: Performed By: #### H STROPN, CMP, BNP, MG #### [facility] [address] [address] [address] Linda Park ALT [Catalytic activity/Vol] 17 U/L Normal 14-59 [facility] Comment on above: Performed By: #### H STROPN, CMP, BNP, MG #### [facility] [address] [address] [address] Linda Park Anion gap [Moles/Vol] 11.8 mmol/L Normal [facility] Comment on above: Performed By: #### H STROPN, CMP, BNP, MG #### [facility] [address] [address] [address] Linda Park AST [Catalytic activity/Vol] 19 U/L Normal 15-37 [facility] Comment on above: Performed By: #### H STROPN, CMP, BNP, MG #### [facility] [address] [place] [address] Dr. Linda Park Bilirubin [Mass/Vol] 0.4 mg/dL Normal 0.2-1.0 [facility] Comment on above: Performed By: #### H STROPN, CMP, BNP, MG #### [facility] [address] [address] [address] Linda Park Calcium [Mass/Vol] 9.5 mg/dL Normal 8.5-10.1 [facility] Comment on above: Performed By: #### H STROPN, CMP, BNP, MG #### [facility] [address] [place] [address] Dr. Linda Park Chloride [Moles/Vol] 104 mmol/L Normal 98-107 [facility] Comment on above: Performed By: #### H STROPN, CMP, BNP, MG #### [facility] [address] [place] [address] Dr. Linda Park CO2 [Moles/Vol] 28.6 mmol/L Normal 21.0-32.0 [facility] Comment on above: Performed By: #### H STROPN, CMP, BNP, MG #### [facility] [address] [place] [address] Dr. Linda Park Creatinine [Mass/Vol] 0.87 mg/dL Normal 0.55-1.02 [facility] Comment on above: Performed By: #### H STROPN, CMP, BNP, MG #### [facility] [address] [place] [address] Dr. Linda Park EGFR-AF ARMENIAN >60 Normal >=60 [facility] Comment on above: Performed By: #### H STROPN, CMP, BNP, MG #### [facility] [address] [place] [address] Dr. Linda Park EGFR-NON AF ARMENIAN >60 Normal >=60 [facility] Comment on above: Performed By: #### H STROPN, CMP, BNP, MG #### [facility] [address] [address] [address] Linda Park Globulin (S) [Mass/Vol] 3.3 g/dL Normal [facility] Comment on above: Performed By: #### H STROPN, CMP, BNP, MG #### [facility] [address] [address] [address] Linda Park Glucose [Mass/Vol] 95 mg/dL Normal 74-106 [facility] Comment on above: Performed By: #### H STROPN, CMP, BNP, MG #### [facility] [address] [place] [address] Dr. Linda Park Potassium [Moles/Vol] 4.4 mmol/L Normal 3.5-5.1 [facility] Comment on above: Performed By: #### H STROPN, CMP, BNP, MG #### [facility] [address] [place] [address] Dr. Linda Park Protein [Mass/Vol] 7.0 g/dL Normal 6.4-8.2 [facility] Comment on above: Performed By: #### H STROPN, CMP, BNP, MG #### [facility] [address] [place] [address] Dr. Linda Park Sodium [Moles/Vol] 140 mmol/L Normal 136-145 [facility] Comment on above: Performed By: #### H STROPN, CMP, BNP, MG #### [facility] [address] [place] [address] Dr. Linda Park Urea nitrogen [Mass/Vol] 14.0 mg/dL Normal 7.0-18.0 [facility] Comment on above: Performed By: #### H STROPN, CMP, BNP, MG #### [facility] [address] [place] [address] Dr. Linda Park Urea nitrogen/Creatinin e [Mass ratio] 16.1 mg/mg Normal [facility] Comment on above: Performed By: #### H STROPN, CMP, BNP, MG #### [facility] [address] [address] [address] Linda Park XR LSPINE MIN 4 [...] JAMIR SANCHEZ Date: 2022-04-30 06:55 Normal [facility] MAMM SCREEN 3D GONZALEZ CADon 03-05-2022 MG MAMM SCREEN 3D GONZALEZ CAD Patient: ELLI LINDSEY Exam Date: 03/05/2022 : 1945 Gender:F Ordering : DR DOCTOR ZAVALA Admission #: [id number] Family : DR. SAMINA GEE M.D. Order #: [id number] CLICK HERE TO VIEW EXAM RADIOLOGY REPORT [...] unknown cancer at age 72. LOCATION: [facility] BREAST COMPOSITION: Scattered areas fibroglandular [...] Arndt MD on 03/05/2022 at 12:09 Normal [facility] Basic Metabolic Profon 09-30 (cont.) [facility] Comment on above: Result Comment: Aver age GFR for 70 or more years old: 75 mL/min/1.73sq mChronic Kidney Disease: <60 mL/min/1.73sq mKidney failure: <15 mL/min/1.73sq meGFR calculated using average adult body mass. Additional eGFR calculator available at:http://www.[employer].AccurIC/multiple_crcl_2012.htmPerformed at [facility] [address] [place] [address] Performed By: #### C DP, ALCB, BMP, TSH ####[address] [address] Anion gap 13 mmol/L Normal 9-17 [facility] Comment on above: Performed By: #### C DP, ALCB, BMP, TSH ####[address] [address] BUN/CRE Ratio 26 High 9-20 [facility] Comment on above: Performed By: #### C DP, ALCB, BMP, TSH ####[address] [address] Calcium 9.4 mg/dL Normal 8.6-10.4 [facility] Comment on above: Performed By: #### C DP, ALCB, BMP, TSH ####[place] [address] Chloride 101 mmol/L Normal 98-107 [facility] Comment on above: Performed By: #### C DP, ALCB, BMP, TSH ####[facility] [address] CO2 25 mmol/L Normal 20-31 [facility] Comment on above: Performed By: #### C DP, ALCB, BMP, TSH ####[address] [address] Creatinine 0.66 mg/dL Normal 0.50-0.90 [facility] Comment on above: Performed By: #### C DP, ALCB, BMP, TSH ####[address] [address] eGFR (non-black) mL/min/{1.73_m2} Normal >60 [facility] Comment on above: Performed By: #### C DP, ALCB, BMP, TSH ####[address] [address] Glucose mass conc 92 mg/dL Normal 70-99 [facility] Comment on above: Performed By: #### C DP, ALCB, BMP, TSH ####[address] [address] Potassium molar conc 4.1 mmol/L Normal 3.7-5.3 [facility] Comment on above: Performed By: #### C DP, ALCB, BMP, TSH ####[address] [address] Sodium 139 mmol/L Normal 135-144 [facility] Comment on above: Performed By: #### C DP, ALCB, BMP, TSH ####[address] [address] Urea nitrogen 17 mg/dL Normal 8-23 [facility] Comment on above: Performed By: #### C DP, ALCB, BMP, TSH ####[address] [address] Staging: NOT REPORTED Normal [facility] Comment on above: Performed By: #### C DP, ALCB, BMP, TSH ####[address] [address] CBC with Diffon 09-30-2017 Abs. Basophil 0.00 k/uL Normal 0.0-0.2 [facility] Comment on above: Result Comment: Perf ormed at [facility] [address] [place] [address] Performed By: #### C DP, ALCB, BMP, TSH ####[place] [address] Abs.Neutrophil (Seg) 4.30 k/uL Normal 1.8-7.7 [facility] Comment on above: Performed By: #### C DP, ALCB, BMP, TSH ####[address] [address] Basophils/100 WBC Auto (Bld) 1 % Normal 0-2 [facility] Comment on above: Performed By: #### C DP, ALCB, BMP, TSH ####[address] [address] Eosinophils 0.10 10*3/uL Normal 0.0-0.4 [facility] Comment on above: Performed By: #### C DP, ALCB, BMP, TSH ####[place] [address] Eosinophils/100 leukocytes 3 % Normal 1-4 [facility] Comment on above: Performed By: #### C DP, ALCB, BMP, TSH ####[facility] [address] [place] [address] Erythrocyte distribution width Auto Ratio (RBC) 13.6 % Normal 11.5-14.5 [facility] Comment on above: Performed By: #### C DP, ALCB, BMP, TSH ####[address] [address] Erythrocytes (RBC) 3.66 10*6/uL Low 4.0-5.2 [facility] Comment on above: Performed By: #### C DP, ALCB, BMP, TSH ####[facility] [place] [address] Hematocrit (HCT) 35.9 % Low 36-46 [facility] Comment on above: Performed By: #### C DP, ALCB, BMP, TSH ####[address] [address] Hemoglobin mass conc (Bld) 12.1 g/dL Normal 12.0-16.0 [facility] Comment on above: Performed By: #### C DP, ALCB, BMP, TSH ####[address] [address] Lymphocytes 1.00 10*3/uL Normal 1.0-4.8 [facility] Comment on above: Performed By: #### C DP, ALCB, BMP, TSH ####[address] [address] Lymphocytes/100 leukocytes 17 % Low 24-44 [facility] Comment on above: Performed By: #### C DP, ALCB, BMP, TSH ####[address] [id number] MCH 33.1 pg Normal 26-34 [facility] Comment on above: Performed By: #### C DP, ALCB, BMP, TSH ####[place] [address] MCHC mass conc (RBC) 33.7 g/dL Normal 31-37 [facility] Comment on above: Performed By: #### C DP, ALCB, BMP, TSH ####[address] [address] MCV 98.1 fL Normal 80-100 [facility] Comment on above: Performed By: #### C DP, ALCB, BMP, TSH ####[place] [address] Monocytes 0.30 10*3/uL Normal 0.2-0.8 [facility] Comment on above: Performed By: #### C DP, ALCB, BMP, TSH ####[place] [address] Monocytes/100 leukocytes 6 % Normal 1-7 [facility] Comment on above: Performed By: #### C DP, ALCB, BMP, TSH ####[place] [address] Neutrophil (Seg) 73 % High 36-66 [facility] Comment on above: Performed By: #### C DP, ALCB, BMP, TSH ####[place] [address] Platelet mean volume (PMV) 7.9 fL Normal 6.0-12.0 [facility] Comment on above: Performed By: #### C DP, ALCB, BMP, TSH ####[place] [address] Platelets 206 10*3/uL Normal 130-400 [facility] Comment on above: Performed By: #### C DP, ALCB, BMP, TSH ####[address] [address] WBC (Leukocytes) 5.8 10*3/uL Normal 3.5-11.0 [facility] Comment on above: Performed By: #### C DP, ALCB, BMP, TSH ####[address] [address] Auto Diff Performed NOT REPORTED [facility] Comment on above: Performed By: #### C DP, ALCB, BMP, TSH ####[address] [address] Erythrocyte morphology NOT REPORTED [facility] Comment on above: Performed By: #### C DP, ALCB, BMP, TSH ####[address] [address] Erythrocytes (RBC) NOT REPORTED Normal [facility] Comment on above: Performed By: #### C DP, ALCB, BMP, TSH ####[address] [address] Granulocytes/100 WBC (Bld) NOT REPORTED Normal 0.00-0.30 [facility] Comment on above: Performed By: #### C DP, ALCB, BMP, TSH ####[address] [address] Immature granulocytes #/vol (Bld) NOT REPORTED Normal 0 [facility] Comment on above: Performed By: #### C DP, ALCB, BMP, TSH ####[address] [address] Platelets NOT REPORTED [facility] Comment on above: Performed By: #### C DP, ALCB, BMP, TSH ####[address] [address] WBC Morphology NOT REPORTED Normal [facility] Comment on above: Performed By: #### C DP, ALCB, BMP, TSH ####[address] [address] Drug Scr, Abuse, Uron 2017 Amphetamine(s),Ur Negative Normal NEG [facility] Comment on above: Result Comment: (Pos itive cutoff 1000 ng/mL) Performed By: #### D AU ####[address] [address] Barbiturate(s),Ur Negative Normal NEG [facility] Comment on above: Result Comment: (Pos itive cutoff 200 ng/mL) Performed By: #### D AU ####[address] [address] Base excess Negative Normal [facility] Comment on above: Result Comment: (Pos itive cutoff 300 ng/mL) Performed By: #### D AU ####[address] [address] Benzodiazepine(s) Positive Abnormal NEG [facility] Comment on above: Result Comment: (Pos itive cutoff 200 ng/mL) Performed By: #### D AU ####[address] [address] Cannabinoid(s),Ur Negative Normal NEG [facility] Comment on above: Result Comment: (Pos itive cutoff 50 ng/mL) Performed By: #### D AU ####[address] [address] Interpretive Info Assay provides medic al screening only. The absence of expected drug(s) and/or [facility] Comment on above: Result Comment: meta bolite(s) may indicate diluted or adulterated urine, limitations of testing or timing of collection.Testing for legal purposes should be confirmed by another method. To request confirmation of test result, please call the lab within 7 days of sample submission.Performed at [facility] [address] [place] [address] Performed By: #### D AU ####[address] [address] Opiate(s), Ur Negative Normal [facility] Comment on above: Result Comment: (Pos itive cutoff 300 ng/mL) Performed By: #### D AU ####[address] [address] Oxycodone, Urine Positive Abnormal NEG [facility] Comment on above: Result Comment: (Pos itive cutoff 100 ng/mL) Performed By: #### D AU ####[address] [address] Phencyclidine, Ur Negative Normal NEG [facility] Comment on above: Result Comment: (Pos itive cutoff 25 ng/mL) Performed By: #### D AU ####[address] [address] Urine, methadone presence Negative Normal [facility] Comment on above: Result Comment: (Pos itive cutoff 300 ng/mL) Performed By: #### D AU ####[address] [address] Buprenorphrine, Ur NOT REPORTED Normal NEG [facility] Comment on above: Performed By: #### D AU ####[address] [address] MDMA, Urine NOT REPORTED Normal [facility] Comment on above: Performed By: #### D AU ####[address] [address] Methamphetamine, Ur NOT REPORTED Normal [facility] Comment on above: Performed By: #### D AU ####[address] [address] Propoxyphene,Urine NOT REPORTED Normal NEG [facility] Comment on above: Performed By: #### D AU ####[address] [address] Urine, tricyclic antidepressants NOT REPORTED Normal [facility] Comment on above: Performed By: #### D AU ####[address] [address] Ethanol Alcoholon 09-30-2017 Ethanol mg/dL Normal <10 [facility] Comment on above: Performed By: #### C DP, ALCB, BMP, TSH ####[address] [address] Ethanol percent <0.010 [facility] Comment on above: Result Comment: Perf ormed at [address] [place] [address] Performed By: #### C DP, ALCB, BMP, TSH ####[address] [address] Thyroid Stim. Horm.on 2017 Thyroid stimulating hormone (TSH) 0.87 m[IU]/L Normal 0.30-5.00 [facility] Comment on above: Result Comment: Perf ormed at [facility] [address] [place] [address] Performed By: #### C DP, ALCB, BMP, TSH ####[facility] [place] [address] [facility] DIGITAL DIAGNOSTIC BILAT ERALon 04-27-2017 [facility] DIGITAL DIAGNOSTIC BILATERAL This is a [...] sent to the patient regarding the results.[employer] recommends annual mammograms for women 40years and older.Interpreted by:TIM Robinigned by:Elli Aparicio MD04/27/17CC Recipients:Mark Francois MD - In Wander Gee - FaxFinal result [facility] Vital Signs Date Time Vital Sign Value Performing Clinician Facility 09-14-2024 11:31-0400 Body height 139.7 cm Baltazar Coronado DPM Work Phone: [facility] 09-14-2024 11:31-0400 Respiratory rate 16 /min Baltazar Cliff DPM Work Phone: [facility] 07-06-2024 11:21-0500 Body height 139.7 cm Baltazar Coronado DPM Work Phone: [facility] 07-06-2024 11:21-0500 Respiratory rate 16 /min Baltazar Coronado DPM Work Phone: [facility] 05-08-2024 12:37-0500 Body height 152.4 cm Ken Jones MD Work Phone: [facility] 05-08-2024 12:37-0500 Body mass index (BMI) [Ratio] 36.29 kg/m2 Ken Jones MD Work Phone: [facility] 05-08-2024 12:37-0500 Body weight 84.28 kg Ken Jones MD Work Phone: [facility] 05-08-2024 12:37-0500 Diastolic blood pressure 98 mm[Hg] Ken Jones MD Work Phone: [facility] 05-08-2024 12:37-0500 Heart rate 73 /min Ken Jones MD Work Phone: [facility] 05-08-2024 12:37-0500 SaO2% (BldA) [Mass fraction] 97 % Ken Jones MD Work Phone: [facility] 05-08-2024 12:37-0500 Systolic blood pressure 144 mm[Hg] Ken Jones MD Work Phone: [facility] 02-07-2024 11:10-0400 Diastolic blood pressure 66 mm[Hg] CAROLINE Chen Work Phone: [facility] 02-07-2024 11:10-0400 Heart rate 65 /min CAROLINE Chen Work Phone: [facility] 02-07-2024 11:10-0400 Respiratory rate 16 /min HOUSEKEEPERJose Chen Work Phone: [facility] 02-07-2024 11:10-0400 SaO2% (BldA) [Mass fraction] 98 % HOUSEKEEPERJose Chen Work Phone: [facility] 02-07-2024 11:10-0400 Systolic blood pressure 127 mm[Hg] HOUSEKEEPERJose Chen Work Phone: [facility] 02-07-2024 09:190400 Body height 154.94 cm HOUSEKEEPERJose Chen Work Phone: [facility] 02-07-2024 09:0400 Body weight 81.19 kg HOUSEKEEPERJose Chen Work Phone: [facility] Encounters Encounter Date Encounter Type Care Provider Facility Start: 11-01-2024 End: 11-01-2024 ambulatory [facility] Start: 09-14-2024 End: 09-14-2024 Bamboo flowsheet Baltazar [...] on above: 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 (Primary Dx); Pulmonary hypertension ([facility]); Benign essential hypertension; Dyslipidemia; Dyspnea on exertion Start: 05-08-2024 End: 05-08-2024 [facility] Start: 05-05-2024 End: 05-05-2024 Telephone encounter Marsha Layne CMA [facility] Start: 04-12-2024 End: 04-26-2024 Telephone encounter Kimberlee Garza [facility] Work Phone: [facility] Comment on above: Hearing Aid Problem Start: 03-30-2024 End: 03-31-2024 Refill Denise Araiza RN [facility] Comment on above: Med Refill Start: 02-07-2024 End: 02-07-2024 Admission to same day surgery center CAROLINE Chen Work Phone: [facility] [place] Work Phone: Start: 02-07-2024 End: 02-07-2024 ambulatory CAROLINE Chen Work Phone: [facility] Work Phone: Start: 01-26-2024 End: 01-26-2024 ambulatory BOONE JHA [facility] Start: 07-12-2023 Orders Only Shukri Jeong MD Work Phone: [facility] Start: 11-05-2022 End: 11-06-2022 ambulatory ADI SHAMMO Facility:[facility] Start: 09-24-2022 End: 09-25-2022 ambulatory RCJACOB ALECKARIEPATRICIO . Facility:[facility] Start: 08-25-2022 Encounter for genera l adult medical examination without abnormal findings ADICARLOS FIGUEROA [facility] Start: 08-25-2022 Encounter for preprocedural cardiovascular examination DR BEAU WILDER . [facility] Start: 08-25-2022 End: 08-25-2022 ambulatory [...] 09-30-2017 Emergency department patient visit [facility] Start: 07-20-2017 Patient encounter procedure Shukri Jeong MD Work Phone: [facility] Start: 04-27-2017 End: 04-28-2017 Ambulatory [facility] Procedures Date Procedure Procedure Detail Performing [...] Td Vaccines (2 - Td or Tdap) [facility] Start: 05-08-2025 Tobacco Screening Tobacco Screening [facility] Start: 11-23-2024 End: 11-23-2024 Patient encounter procedure 11/23/2024 1:00 PM EDT Procedure Visit [facility] [address] [facility] [address] [place] [address] Baltazar Coronado DPM [address] 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 (Primary Dx); Metatarsal deformity, left; Metatarsal deformity, right Start: 07-06-2024 End: 07-06-2024 Patient encounter procedure [facility] Comment on above: Arrived Start: 06-16-2024 COVID-19 Vaccine ( season) COVID-19 Vaccine () [facility] Start: 05-15-2024 End: 05-08-2025 Basic metabolic 2000 panel - Serum or Plasma Basic Metabolic Panel Lab Routine 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 Pulmonary hypertension ([facility]) Benign essential hypertension Dyslipidemia Dyspnea on exertion Expected: 05/15/2024, Expires: 05/08/2025 [facility] Work Phone: Comment on above: Expected: 05/15/2024 , Expires: 05/08/2025 Start: 05-09-2024 End: 05-09-2024 Patient encounter procedure 05/09/2024 10:00 AM EST Office Visit [facility] [address] [place] [id number] Ken Jones MD [address] [place] [address] [facility] Start: 05-08-2024 End: 05-08-2024 Patient encounter procedure 05/08/2024 12:45 PM EST Office Visit [facility] [address] [place] [id number] Ken Jones MD [address] [place] [address] [facility] Start: 03-02-2024 Adult BMI Screening Adult BMI Screen ing [facility] Start: 03-02-2024 Tobacco Screening Tobacco Screening [facility] Start: 02-13-2024 COVID-19 Vaccine ( season) COVID-19 Vaccine () [facility] Start: 02-13-2024 COVID-19 Vaccine ( season) COVID-19 Vaccine () [facility] Start: 02-13-2024 Influenza vaccination Influenza Vacc ine [facility] Start: 02-07-2024 [facility] Start: 02-07-2024 Bone marrow sampling [facility] Start: 06-01-2023 Adult BMI Follow Up Plan Adult BMI Follow Up Plan [facility] Start: 02-12-2023 COVID-19 Vaccine ( season) COVID-19 Vaccine () [facility] Start: 02-12-2023 Influenza vaccination Influenza Vacc ine [facility] Start: 08-18-2022 Depression Screening Depression Scre ening [facility] Start: 02-18-2022 Fall Risk Screening Fall Risk Screen ing [facility] Start: 02-18-2022 Medicare Annual Well ness Visit Medicare Annual Wellness Visit [facility] Start: 2010 Fall Risk Screening Fall Risk Screen ing [facility] End: 03-30-2025 Basic metabolic 2000 panel - Serum or Plasma Basic Metabolic Panel Lab Routine 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 1 Occurrences starting 03/31/2024 until 03/30/2025 [facility] Work Phone: Comment on above: 1 Occurrences starti ng 03/31/2024 until 03/30/2025 End: 03-30-2025 Magnesium [Mass/volume] in Serum or Plasma Magnesium Lab Routine 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 1 Occurrences starting 03/31/2024 until 03/30/2025 [facility] Comment on above: 1 Occurrences starti ng 03/31/2024 until 03/30/2025 Patient Education [facility] Bone Marrow Aspiration or Biopsy Know your Meds [facility] Work Phone: Immunizations Immunization Date Immunization Notes Care Provider Fa cility 03-04-2023 influenza virus vacc ine, unspecified formulation Denise Araiza RN [facility] 03-04-2022 influenza, injectabl e, quadrivalent, preservative free Shukri Jeong MD Work Phone: [facility] 03-04-2022 influenza virus vacc ine, unspecified formulation Shukri Jeong MD Work Phone: [facility] 04-04-2021 influenza, injectabl e, quadrivalent, contains preservative Shukri Jeong MD Work Phone: [facility] 03-13-2021 COVID-19, mRNA, LNP- S, PF, 30mcg/0.3mL Dose Shukri Jeong MD Work Phone: [facility] 08-13-2020 COVID-19, mRNA, LNP- S, PF, 30mcg/0.3mL Dose Shukri Jeong MD Work Phone: [facility] 07-22-2020 COVID-19, mRNA, LNP- S, PF, 30mcg/0.3mL Dose Shukri Jeong MD Work Phone: [facility] 02-06-2020 influenza, injectabl e, quadrivalent, preservative free Shukri Jeong MD Work Phone: [facility] 04-06-2019 zoster vaccine recombinant Shukri Jeong MD Work Phone: [facility] 03-09-2019 influenza, high dose seasonal, preservative-free Shukri Jeong MD Work Phone: [facility] 09-01-2018 zoster vaccine recombinant Shukri Jeong MD Work Phone: [facility] 02-17-2018 Seasonal trivalent influenza vaccine, adjuvanted, preservative free Shukri Jeong MD Work Phone: [facility] 08-26-2017 pneumococcal polysaccharide vaccine, 23 valent Shukri Jeong MD Work Phone: [facility] 02-10-2017 influenza virus vacc ine, unspecified formulation Shukri Jeong MD Work Phone: [facility] 02-20-2016 influenza, seasonal, injectable, preservative free Shukri Jeong MD Work Phone: [facility] 10-09-2015 pneumococcal conjuga te vaccine, 13 valent Shukri Jeong MD Work Phone: [employer] 03-08-2015 Influenza TIV (IM) Shukri soto MD Work Phone: [employer] 07-07-2013 pneumococcal polysaccharide vaccine, 23 diaz Jeong MD Work Phone: [employer] 06-14-2007 pneumococcal polysaccharide vaccine, 23 diaz Jeong MD Work Phone: [employer] 02-26-1999 pneumococcal polysaccharide vaccine, 23 diaz Jeong MD Work Phone: [employer] Payers Date Payer Category Payer Medicare (Managed Care) 1.2. [id number] 2024 Self-pay 2024 Private Health Insurance [id number] 2023 Medicare [id number] 2022 Unknown BCBS [facility] HMO/PPO/TRUST [id number] 2022-[facility] [phone] [address] [place] [address] [id number] 2014 Medicare [id number] 2010 Medicare [id number] 1959 Medicare [id number] 1959 Medicare [id number] 1959 Unknown [id number] 1945 Unknown [id number] 2.16.840.1.956862.3.579.2. 593 1945 Unknown [id number] 2.16.840.1.168752.3.579.2. 593 1945 Unknown [id number] 2.16.840.1.489643.3.579.2. 593 1945 Unknown [id number] 2.16.840.1.513943.3.579.2. 593 1945 Unknown [id number] 2.16.840.1.503639.3.579.2. 593 1945 Unknown [id number] 2.16.840.1.285136.3.579.2. 593 1945 Unknown [id number] 2.16.840.1.457525.3.579.2. 593 1945 Unknown [id number] 2.16.840.1.001874.3.579.2. 593 1945 Unknown [id number] 2.16.840.1.195799.3.579.2. 593 1945 Unknown [id number] 2.16.840.1.399301.3.579.2. 593 1945 Unknown [id number] 2.16.840.1.071690.3.579.2. 593 1945 Unknown [id number] 2.16.840.1.626394.3.579.2. 593 1945 Unknown [id number] 2.16.840.1.280574.3.579.2. 1259 1945 Unknown [id number] 2.16.840.1.751514.3.579.2. 1259 1945 Unknown [id number] 2.16.840.1.159797.3.579.2. 1286 1945 Unknown [id number] 2.16.840.1.513229.3.579.2. 1286 1945 Unknown [id number] 2.16.840.1.989710.3.579.2. 1286 Unknown [id number] 2.16.840.1.190197.3.579.2. 531 Social History Date Type Detail Facility Start: 02-22-2023 End: 02-07-2024 Tobacco smoking status NHIS Never smoked tobacco (finding) [facility] Start: 1945 Sex Assigned At Female F [facility] Start: 02-22-2023 End: 07-06-2024 History of Social function [facility] Start: 02-22-2023 End: 07-06-2024 Tobacco use panel [facility] Start: 1945 Sex assigned at Not on file P [facility] Start: 06-01-2022 Tobacco use and exposure Smoke less tobacco non-user [facility] Start: 03-02-2023 End: 05-08-2024 Alcohol intake Current drinker of alcohol (finding) [facility] Frequency of Communi cation with Friends and Family Three times a week [facility] Start: 03-09-2019 Education 14 [facility] Start: 01-15-2015 Sex Female (finding) [facility] Clinical Notes 06-23-2022 to 09-14-2024 Baltazar Coronado [...] Resource Strain: Low Risk (03/09/2019) Received from [employer] Overall Financial Resource Strain (CARDIA) Difficulty of Paying Living Expenses: Not hard at all Food Insecurity: No Food Insecurity (05/08/2024) Received from [employer] Hunger Screening Within the past 12 months we worried whether our food would run out before we got money to buy more.: Never True Within the past 12 months the food we bought just didn't last and we didn't have money to get more.: Never True Transportation Needs: No Transportation Needs (03/09/2019) Received from [employer] PRAPARE - Transportation Lack of Transportation (Medical): No Lack of Transportation (Non-Medical): No Physical Activity: Sufficiently Active (03/09/2019) Received from [employer] Exercise Vital Sign Days of Exercise per Week: 7 days Minutes of Exercise per Session: 50 min Stress: Stress Concern Present (03/09/2019) Received from [employer] [place] [employer] - Occupational Stress Questionnaire Feeling of Stress : To some extent Social Connections: Socially Integrated (03/09/2019) Received from [employer] [facility] Social Connection and Isolation Panel [NHANES] Frequency of Communication with Friends and Family: Three times a week Frequency of Social Gatherings with Friends and Family: Three times a week Attends Taoism Services: More than 4 times per year [...] Baltazar Coronado DPM documented in this encounter [facility] 07-06-2024 History of Presen t illness Narrative [...] Past Medical History: Diagnosis Date Breast cancer ([facility] Medications: No current outpatient medications on file. [...] Resource Strain: Low Risk (03/09/2019) Received from [employer] Overall Financial Resource Strain (CARDIA) Difficulty of Paying Living Expenses: Not hard at all Food Insecurity: No Food Insecurity (05/08/2024) Received from [employer] Hunger Screening Within the past 12 months we worried whether our food would run out before we got money to buy more.: Never True Within the past 12 months the food we bought just didn't last and we didn't have money to get more.: Never True Transportation Needs: No Transportation Needs (03/09/2019) Received from [employer] PRAPARE - Transportation Lack of Transportation (Medical): No Lack of Transportation (Non-Medical): No Physical Activity: Sufficiently Active (03/09/2019) Received from [employer] Exercise Vital Sign Days of Exercise per Week: 7 days Minutes of Exercise per Session: 50 min Stress: Stress Concern Present (03/09/2019) Received from [employer] [place] [employer] - Occupational Stress Questionnaire Feeling of Stress : To some extent Social Connections: Socially Integrated (03/09/2019) Received from [employer] Social Connection and Isolation Panel [NHANES] Frequency of Communication with Friends and Family: Three times a week Frequency of Social Gatherings with Friends and Family: Three times a week Attends Taoism Services: More than 4 times per year [...] Baltazar Coronado DPM documented in this encounter [facility] 05-08-2024 History of Presen t illness Narrative Mariela Lindsey Date of visit: 05/08/2024 Date of : 1945 Age: 78 y.o. Patient Active Problem List Diagnosis Benign essential hypertension Chronic right-sided low back pain with right-sided sciatica Dyslipidemia Malignant neoplasm of female breast [place] Temporomandibular joint disorder Pseudophakia Medicare annual wellness visit, subsequent Pain in both knees Severe obesity (BMI 35.0-39.9) with comorbidity ([facility] Gastroesophageal reflux disease with esophagitis Thoracic outlet syndrome Depressive disorder Tension headache Sprain of right rotator cuff capsule Spinal stenosis of lumbar region Facet arthritis of lumbar region Scoliosis of lumbar spine Abnormal echocardiogram Pulmonary hypertension ([facility]) Allergies Allergen Reactions Hay Fever And Allergy [...] 0.5 tablets before bedtime. 90 tablet 0 psqqgfpn-fmsv-UH-calcium &mins (THERAGRAN-M) 9 mg iron-400 mcg tablet [...] Past Medical History: Diagnosis Date Breast cancer ([facility]) 2013 RT GERD (gastroesophageal reflux disease) Hyperlipidemia Hypertension Menopausal syndrome (hot flashes) No data recorded No data recorded No data recorded Past Surgical History: Procedure Laterality Date APPENDECTOMY BELPHAROPTOSIS REPAIR Bilateral BLEPHAROPLASTY W/ LASER BREAST BIOPSY BREAST LUMPECTOMY Right 2013 RADIATION AND CHEMO Cardiac catheterization- Cors + Right heart + LV gram/press 02193 N/A 02/08/2023 Performed by Abdiel Lemus MD at [facility] CARDIAC CATH LABS CATARACT EXTRACTION Bilateral [...] 50 min Stress: Stress Concern Present (03/09/2019) [employer] [employer] - Occupational Stress Questionnaire Feeling of Stress : To some extent Social Connections: Socially Integrated (03/09/2019) Social Connection and Isolation Panel [NHANES] Frequency of Communication with Friends and Family: Three times a week Frequency of Social Gatherings with Friends and Family: Three times a week Attends Taoism Services: More than 4 times per year [...] medications. IMPRESSIONS/PLAN 1. 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 - POCT EKG 2. Pulmonary hypertension (CMS-HCC) 3. Benign essential hypertension 4. Dyslipidemia 5. 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 PCP: HEATHER ZIMMERMAN Referring Physician: KANIKA BillRECYCLING TECH [address] [place] [address] [facility] 05-05-2024 Miscellaneous Notes Called patient to remind them to bring their most current copy of their medication list with them to their appt. Patient verbalizes understanding. documented [facility] 05-05-2024 Telephone encounter Note Called patient to remind them to bring their most current copy of their medication list with them to their appt. Patient verbalizes understanding. [facility] Telephone encounter Note Patient called. I tracked order and aids arrived today from [employer]. Told patient the aids could be sent to [facility] where she can pick them up. [facility] hours were reviewed. [facility] 04-25-2024 Miscellaneous Notes Patient called. I tracked order and aids arrived today from [employer]. Told patient the aids could be sent to [facility] where she can pick them up. [facility] hours were reviewed. Pt wants us to call her at [phone] when her aids are back from repair [...] back from [employer] documented in this encounter [facility] 04-17-2024 Telephone encounter Note Pt wants us to call her at [phone] when her aids are back from repair [facility] Work Phone: 04-12-2024 Telephone encounter Note [...] her when aids are back from [employer] [facility] 03-30-2024 Miscellaneous Notes Last OV 03/02/23 Pt will call to make appt Last [facility] 12/18/22 Orders placed for BMP and Mg.slm documented in this encounter [facility] 03-30-2024 Telephone encounter Note Last OV 03/02/23 Pt will call to make appt Last [facility] 12/18/22 Orders placed for BMP and Mg.slm [facility] 09-24-2022 Note CONSULTATION CONSULTATION DATE: 09/24/2022 TO: [...] this infrequently. She is no longer on [place], since at least July. Her GERALDO on [...] our patients to inform us about any lozc-tsv-agqqjgp medications or herbal remedies/nutritional supplements/alternative remedies. 2. [...] options with their primary care provider. [facility] 08-20-2022 Note CONSULTATION CONSULTATION DATE: 08/20/2022 HISTORY [...] Medications include Celebrex 200 mg daily, multivitamin, Sm[place] 5/325 daily p.r.n., Excedrin and baclofen 10 [...] L4, L5. She is to continue her [place] 5/325 daily p.r.n. and I highly encouraged her to use a heat rub and heat application once to twice daily. Patient agrees with this plan of care and will be brought back to the clinic thereafter. [facility] 07-23-2022 Note PAIN MANAGEMENT CONS ULTATION CONSULTATION [...] greatly aggravate her pain. Current medications include [place] 5/325 daily p.r.n., baclofen 10 mg q.h.s. [...] followed up in the office thereafter. [facility] 06-23-2022 Note CONSULTATION CONSULTATION DATE: 06/23/2022 CHIEF [...] the possibility of a neurosurgical consult at [facility]. The patient's PAST MEDICAL HISTORY [...] PLAN: We will start the patient on [place] 5/325 one tablet p.o. daily. The patient [...] would like to proceed. CC: DEIRDRE Bill [facility] Evaluation note No assessment inform ation available [facility] Work Phone: Evaluation note Diagnosis Metatarsal deformity, right- Primary Pain due to onychomycosis of toenails of both feet Metatarsal deformity, left documented in this encounter [facility]* Diagnosis 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- Primary [facility] Diagnosis 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- Primary Pulmonary hypertension (CMS-HCC) Other chronic pulmonary heart diseases Benign essential hypertension Essential hypertension, benign Dyslipidemia Other and unspecified hyperlipidemia Dyspnea on exertion Other dyspnea and respiratory abnormality documented [facility] this [facility] Diagnosis Metatarsal deformity, left- Primary Pain due to onychomycosis of toenails of both feet Metatarsal deformity, right documented in this encounter [facility] HealthcareInstructionsNot on filedocumented in this encounterProMedime Health SystemInstructionsNot on filedocumented in this encounterProChildren[facility] SystemInstructionsNot on filedocumented in this encounterProChildren'[facility] Summary Purpose Family History No Family [...] Documents on File Type Date Recorded Patient Trading Analyst Expl anation Living Will 10/11/2015 2:28 PM Chief Complaint and Reason for Visit Chief Complaint refractory anemia ev al for mds Additional Source Comments INFORMATION SOURCE (unrecogn ized section and content) DATE CREATED AUTHOR 12/02/[address] [facility] DATE CREATED AUTHOR AUTHOR'S ORGANIZ ATION 11/20/2022 [facility] DATE CREATED AUTHOR AUTHOR'S ORGANIZ ATION 02/12/2024 [facility] DATE CREATED AUTHOR AUTHOR'S ORGANIZ ATION 09/17/2024 [facility] EPIC DATE CREATED AUTHOR AUTHOR'S ORGANIZ ATION 11/08/2024 [facility] Care Teams (unrecognized sec tion and content) Team Status: Active Member Role Status Dates Chanell Chen APRN Primary Care Provider Active Team Status: Inactive Member Role Status Dates Claribel Pickett MD Attending Provider Active St art: February 07, 2024 End: February 07, 2024 Chanell Chen APRN Primary Care Provider Active Start: February 07, 2024 End: February 07, 2024 Pain Management Specialist Relationship Specialty Start Date End Date Adi Figueroa APRN-CNP [address] [place] [id number] PCP - General Primary Care 06/01/22 Pain Management Specialist Relationship Specialty Start Date End Date Adi Figueroa APRN-CNP [address] [place] [id number] PCP - General Primary Care 06/01/22 Pain Management Specialist Relationship Specialty Start Date End Date Gustavo, Chanell, HOUSEKEEPER-STOCK SELECTOR [address] [place] [address] PCP - General Family Medicine 05/08/24 Pain Management Specialist Relationship Specialty Start Date End Date Adi FigueroaCAROLINE-RECYCLING TECH [address] [place], [place] [id number] PCP - General Primary Care 06/01/22 Pain Management Specialist Relationship Specialty Start Date End Date Unallocated, Christel Edmond MD [address] [place] [id number] PCP - General Family Medicine 09/14/24 Pain Management Specialist Relationship Specialty Start Date End Date Unallocated, Christel Edmond MD [address] [place] [id number] PCP - General Family Medicine 09/14/24 Goals [...] BE BASED ON THE PRIMARY CLINICAL RECORDS. [facility] [employer] [facility] provides no warranty or guarantee of the accuracy or completeness of information in this document.
== END 2025-03-01 08:37 | disposition home or self-care (01) ==
LOC: MAMMO 08:36
PROVIDERS: Visit Provider Internal Medicine Hematology & Oncology
DX: Z12.31 Encounter for screening mammogram for malignant neoplasm of breast (principal); Z80.3 Family history of malignant neoplasm of breast; Z80.9 Family history of malignant neoplasm, unspecified
CPT/HCPCS: 77063; 77067

== ENCOUNTER 2025-03-06 09:48 | Inpatient (IN) | payer MEDICARE, SELFPAY ==
[2025-03-06] VITALS (46 sets, daily range): BP systolic 117–141; BP diastolic 60–80; PULSE 59–92; TEMP 36.4–36.7; O2SAT 96–98; BMI 35.7; BMI 36.4
--- NOTE | 2025-03-06 10:28 | ECG_ITS ---
[facility] Test Date: 2025-03-06 Pat Name: THI LINDSEY Department: Room: - Gender: Female Attorney General: : 1945 Requested By: [id number] Order Number: [id number] Reading MD: CHELY JERRY Measurements Intervals [place] Rate: 75 P: 39 GA: 196 QRS: 7 QRSD: 66 T: 64 QT: 350 QTc: 379 Interpretive Statements 1100 Sinus rhythm 8102 Low QRS voltage in chest leads 9120 atypical ECG Compared to ECG 11/05/2022 13:41:46 Low QRS voltage now present Electronically Signed On 03-06-2025 12:28:03 EDT by CHELY JERRY
--- OUTSIDE RECORDS SUMMARY | 2025-03-06 10:46 | XMS_ITS | CCD ---
Author Organization [facility] Care Team Providers Care Sanitation Associate Name Role Phone KENZIE ALMONTE Unavailable Unavailable SUNDHEIMER, MEGHANN B Unavailable Unavailable SUNDHEIMER, MEGHANN B Unavailable Unavailable BRIDGER PARADA Unavailable Unavailabl e LAKSHMIPATHY ., NARIZZYATH Attending Natasha vailable SHAMMO, ADI Primary Care Unavailable LAKSHMIPATHY ., DAINA Admitting Natasha vailable LAKSHMIPATHY ., DAINA Consulting [place] vailable WILDER ., DR BEAU Galvan Admitting [...] Admitting Unavailable SHAMMO, ADI Primary Care Unavailable DR JAMIR SANCHEZ Consulting Unavailable TERRENCE ALBERTO Consulting Unavailable SHAMMO, [...] Consulting Unavailable MISC, DR CABRERA Attending Unavailable OTIS, DR JOSE RAFAEL Mendes Consulting Unavailable MISC, [...] Consulting Unavailable MD Claribel Pickett Attending Provider [phone] [place], [facility] Primary Care Provider [phone] Claribel Pickett Attending Unavailable Claribel Pickett Admitting Unavailable [facility] Primary Care Unavailable Unavailable Primary Care Provider Unavailabl e Shammo BALLAST REGULATOR OPERATOR-PROFILER OPERATOR, [place] Primary Care Provider [phone] Gustavo BALLAST REGULATOR OPERATOR-MASONRY TEACHER, [place] Primary Care Provider [phone] Unallocated Christel BOBBY Provider Primary Care Provi ct BALTAZAR CORONADO Attending Unavailable BALTAZAR CORONADO Attending Unavailable BOONE JHA Referring Unavailable SHAMMO, ADI Primary Care Unavailable KEN JONES Attending Unavailable SHAMMO, ADI Referring Unavailable [facility] Primary Care Unavailable TABITHA CANO Referring Unavailable [facility] Primary Care Unavailable Allergies Allergy Classification Reported Allergen(s) Allergy Type Date of Onset Reaction(s) Facility (5 sources) Hay Fever And Allergy Relief; Translations: [HAY FEVER AND ALLERGY RELIEF] Propensity to adverse reactions to drug 06-20-2014 [facility] (5 sources) Other; Translations: [OTHER] Propensity to adverse reactions 12-24-2015 [facility] Medications Current Medications Medication Drug Class(es) Dates [...] per tablet Indications: 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 Indications: lack in minerals, vitamin deficiency. 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 , Pulmonary hypertension ([facility]) , Benign essential hypertension , Dyslipidemia , [...] Coronary arteriosclerosis; Translations: [Atherosclerotic heart disease of kaw coronary artery without angina pectoris] Onset: 05-08-2024 [...] Fermin MD on 11/05/2024 8:50 AM Normal [facility] POCT EKGOrdered By: Marsha Layne on 05-08-2024 [facility] Activated partial thrombopla stin time (aPTT) in platelet poor plasma by coagulation aOrdered By: Claribel Pickett on 02-07-2024 aPTT Coag (PPP) [Time] 36.0 s 25.1-36.5 [facility] Comment on above: A hematocrit value g reater than 55% may lead to inaccurate results in coagulation testing. Patients having hematocrit values >55% require a special collection tube for coagulation studies. Please contact the laboratory at [phone] for redraw instructions. Automated basophil %Ordered By: Claribel Pickett on 02-07-2024 Basophils/100 WBC (Bld) 0.6 % Normal . [facility] Comment on above: Order Comment: STAT FOR CT BX Performed By: #### C BC, PP #### [facility] [address] Automated basophil countOrde red By: Claribel Pickett on 02-07-2024 Basophils (Bld) [#/Vol] 0.0 10*3/uL Normal 0.0-0.2 [facility] Comment on above: Order Comment: STAT FOR CT BX Result Comment: PERF ORMED BY: [place] [address] PATHOLOGIST CABLE STRANDER KATRINA PATTERSON M.D. Performed By: #### C BC, PP #### [address] Automated blood monocyte cou ntOrdered By: Claribel Pickett on 02-07-2024 Monocytes (Bld) [#/Vol] 0.6 10*3/uL Normal 0.0-0.8 [facility] Comment on above: Order Comment: STAT FOR CT BX Performed By: #### C BC, PP #### [address] Automated eosinophil %Ordere d By: Claribel Nieves on 02-07-2024 Eosinophils/100 WBC (Bld) 2.5 % Normal . [facility] Comment on above: Order Comment: STAT FOR CT BX Performed By: #### C BC, PP #### [address] Automated eosinophil countOr dered By: Claribel Nieves on 02-07-2024 Eosinophils (Bld) [#/Vol] 0.2 10*3/uL Normal 0.0-0.45 [facility] Comment on above: Order Comment: STAT FOR CT BX Performed By: #### C BC, PP #### [address] Automated monocyte %Ordered By: Claribel Nieves on 02-07-2024 Monocytes/100 WBC (Bld) 7.6 % Normal . [facility] Comment on above: Order Comment: STAT FOR CT BX Performed By: #### C BC, PP #### [address] Automated neutrophil %Ordere d By: Claribel Nieves on 02-07-2024 Neutrophils/100 WBC (Bld) 72.6 % Normal . [facility] Comment on above: Order Comment: STAT FOR CT BX Performed By: #### C BC, PP #### [place] [address] guided bone marrow bx/asp iron 02-07-2024 CT guided bone marrow bx/aspir [facility] [place] [address] [place] [address] CT Scan Report Signed Patient: Elli Lindsey MR#: [id number] : 1945 Acct:[id number] Age/Sex: 78 / F ADM Date: 02/07/24 Loc: CT Room: Type: [facility] Attending Dr: Claribel Pickett MD Copies to: Claribel Pickett MD Ordering Provider: Claribel Picktet MD Date of Service: 02/07/24 CT/CT guided [...] local anesthesia. Utilizing CT guidance, an 11-gauge Mydeo biopsy needle was advanced into the right [...] Adams Jr., D.O.02/07/2024 2:08 PM Dictation Location: [place] [address] Transcribed By: [facility] 02/07/24 1408 Dictated By: Sebastian Adams Jr, DO 02/07/24 1407 Signed By: 02/07/24 1408 Normal [facility] Coagulation Profileon 2023 aPTT Coag (Bld) [Time] 36.0 s Normal 25.1-36.5 [facility] Comment on above: Order Comment: STAT FOR CT BX Result Comment: A he matocrit value greater than 55% may lead to inaccurate results in coagulation testing. Patients having hematocrit values >55% require a special collection tube for coagulation studies. Please contact the laboratory at [phone] for redraw instructions. PERFORMED BY: [place] [address] PATHOLOGIST CABLE STRANDER KATRINA PATTERSON M.D. Performed By: #### C BC, PP #### [address] Complete Blood Count Auto Di ffon 02-07-2024 Mean Corpuscular HGB Conc 34.1 g/dL Normal 32.0-35.0 [facility] Comment on above: Order Comment: STAT FOR CT BX Performed By: #### C BC, PP #### [address] NRBC% 0.0 /100{WBC} Normal 0-0.5 [facility] Comment on above: Order Comment: STAT FOR CT BX Performed By: #### C BC, PP #### [address] Erythrocyte distribution wid th [Ratio] by Automated countOrdered By: Claribel Pickett on 02-07-2024 Erythrocyte distribution width (RBC) [Ratio] 13.8 % Normal 11.9-15.3 [facility] Comment on above: Order Comment: STAT FOR CT BX Performed By: #### C BC, PP #### [address] Erythrocytes [#/volume] in B lood by Automated countOrdered By: Claribel Pickett on 02-07-2024 RBC (Bld) [#/Vol] 3.45 10*6/uL Low 3.60-5.00 [facility] [place] [facility] Comment on above: Order Comment: STAT FOR CT BX Performed By: #### C BC, PP #### [address] Hematocrit [Volume Fraction] of Blood by Automated countOrdered By: Claribel Pickett on 02-07-2024 Hematocrit (Bld) [Volume fraction] 33.8 % Low 34.0-46.4 [facility] Comment on above: Order Comment: STAT FOR CT BX Performed By: #### C BC, PP #### [facility] [address] Hemoglobin [Mass/volume] in BloodOrdered By: Claribel Pickett on 02-07-2024 Hemoglobin (Bld) [Mass/Vol] 11.5 g/dL Low 11.8-15.4 [facility] Comment on above: Order Comment: STAT FOR CT BX Performed By: #### C BC, PP #### [facility] [address] [place] [address] INR in Platelet poor plasma by Coagulation assayOrdered By: Claribel Pickett on 02-07-2024 INR Coag (PPP) [Relative time] 1.0 {INR} Normal [facility] Comment on above: INR Therapeutic Rang e [...] Performed By: #### C BC, PP #### [facility] [address] [place] [address] Leukocytes [#/volume] correc denita for nucleated erythrocytes in Blood by Automated counOrdered By: Claribel Pickett on 02-07-2024 WBC corrected for nucl RBC Auto (Bld) [#/Vol] 8.0 10*3/uL 3.8-11.6 [facility] Leukocytes [#/volume] in Blo od by Automated countOrdered By: Claribel Pickett on 02-07-2024 WBC (Bld) [#/Vol] 8.0 10*3/uL Normal 3.8-11.6 [facility] Comment on above: Order Comment: STAT FOR CT BX Performed By: #### C BC, PP #### [facility] [address] [place] [address] [place] Lymphocytes [#/volume] in Bl ood by Automated countOrdered By: Claribel Pickett on 02-07-2024 Lymphocytes (Bld) [#/Vol] 1.3 10*3/uL Normal 1.00-4.8 [facility] Comment on above: Order Comment: STAT FOR CT BX Performed By: #### C BC, PP #### [address] Lymphocytes/100 leukocytes i n Blood by Automated countOrdered By: Claribel Pickett on 02-07-2024 Lymphocytes/100 WBC (Bld) 16.7 % Normal . [facility] Comment on above: Order Comment: STAT FOR CT BX Performed By: #### C BC, PP #### [address] MCH [Entitic mass] by Automa denita countOrdered By: Claribel Pickett on 02-07-2024 MCH (RBC) [Entitic mass] 33.5 pg Normal 24.7-34.3 [facility] Comment on above: Order Comment: STAT FOR CT BX Performed By: #### C BC, PP #### [address] MCHC Auto (RBC) [Mass/Vol]Or dered By: Claribelvannessa Pickett on 02-07-2024 MCHC (RBC) [Mass/Vol] 34.1 g/dL 32.0-35.0 [facility] MCV [Entitic volume] by Auto mated countOrdered By: Claribel Pickett on 02-07-2024 MCV (RBC) [Entitic vol] 98.1 fL Normal 80-100 [facility] Comment on above: Order Comment: STAT FOR CT BX Performed By: #### C BC, PP #### [place] [address] [place] Neutrophils [#/volume] in Bl ood by Automated countOrdered By: Claribel iPckett on 02-07-2024 Neutrophils (Bld) [#/Vol] 5.8 10*3/uL Normal 1.8-7.7 [facility] Comment on above: Order Comment: STAT FOR CT BX Performed By: #### C BC, PP #### [address] Nucleated erythrocytes [Pres ence] in Blood by Automated countOrdered By: Claribel Pickett on 02-07-2024 Nucleated RBC Auto Ql (Bld) 0.0 /100{WBC} 0-0.5 [facility] Pathology Request for Lab Co rpon 02-07-2024 Pathology Request for Lab Samir Normal [facility] Comment on above: Order Comment: BM BI OPSY Result Comment: See report. Scanned copy available in EMR. PERFORMED BY: [place] [address] PATHOLOGIST CABLE STRANDER KATRINA PATTERSON M.D. Performed By: #### P ATH TO [facility] #### [address] Platelet mean volume [Entiti c volume] in Blood by Automated countOrdered By: Claribel Pickett on 02-07-2024 Platelet mean volume (Bld) [Entitic vol] 7.2 fL Normal 6.3-10.7 [facility] Comment on above: Order Comment: STAT FOR CT BX Performed By: #### C BC, PP #### [address] Platelets [#/volume] in Bloo d by Automated countOrdered By: Claribel Pickett on 02-07-2024 Platelets (Bld) [#/Vol] 271 10*3/uL Normal 150-450 [facility] Comment on above: Order Comment: STAT FOR CT BX Performed By: #### C BC, PP #### [address] Prothrombin time (PT)Ordered By: Claribel Pickett on 02-07-2024 PT Coag (PPP) [Time] 11.8 s Normal 9.0-12.9 [facility] Comment on above: A hematocrit value g reater than 55% may lead to inaccurate results in coagulation testing. Patients having hematocrit values >55% require a special collection tube for coagulation studies. Please contact the laboratory at [phone] for redraw instructions. Order Comment: STAT FOR CT BX Result Comment: A he matocrit value greater than 55% may lead to inaccurate results in coagulation testing. Patients having hematocrit values >55% require a special collection tube for coagulation studies. Please contact the laboratory at [phone] for redraw instructions. Performed By: #### C BC, PP #### [facility] [address] [place] [address] XR KNEE RT 3 VWSon XR KNEE [...] Garcia MD on 01/26/2024 10:55 PM Normal [facility] US CAROTID ART BILon 05-26-2 023 [...] (Bld) [Mass/Vol] 55.0 pg/mL Normal <=1,800.0 [facility] Comment on above: Performed By: #### H STROPN, CMP, BNP, MG #### [facility] [address] [place] [address] [address] Linda Park ECHOCARDIO M/2D COMPLETEon 0 11-05-2022 ECHOCARDIO M/2D COMPLETE Patient: ELLI LINDSEY Exam Date: 11/05/2022 : 1945 Gender:F Ordering : ADI FIGUEROA Admission #: [id number] Family : Order #: [id number] CLICK HERE TO VIEW EXAM ECHOCARDIOGRAM REPORT [...] Lopez M.D. on 11/08/2022 at 15:17 Normal [facility] MAGNESIUMon 11-05-2022 Magnesium [Mass/Vol] 2.0 mg/dL Normal 1.8-2.4 [facility] Comment on above: Performed By: #### H STROPN, CMP, BNP, MG #### [facility] [address] [place] [address] Dr. Linda Park PROF 14(COMP METB)on 023 Albumin [Mass/Vol] 3.7 g/dL Normal 3.4-5.0 [facility] Comment on above: Performed By: #### H STROPN, CMP, BNP, MG #### [facility] [address] [place] [address] Dr. Linda Park Albumin/Globulin [Mass ratio] 1.1 {ratio} Normal [facility] Comment on above: Performed By: #### H STROPN, CMP, BNP, MG #### [facility] [address] [place] [address] Dr. Linda Park ALP [Catalytic activity/Vol] 84 U/L Normal 46-116 [facility] Comment on above: Performed By: #### H STROPN, CMP, BNP, MG #### [facility] [address] [place] [address] Dr. Linda Park ALT [Catalytic activity/Vol] 17 U/L Normal 14-59 [facility] Comment on above: Performed By: #### H STROPN, CMP, BNP, MG #### [facility] [address] [place] [address] [address] Linda Park Anion gap [Moles/Vol] 10.8 mmol/L Normal [facility] Comment on above: Performed By: #### H STROPN, CMP, BNP, MG #### [facility] [address] [place] [address] [address] Linda Park AST [Catalytic activity/Vol] 15 U/L Normal 15-37 [facility] Comment on above: Performed By: #### H STROPN, CMP, BNP, MG #### [facility] [address] [place] [address] [address] iLnda Park Bilirubin [Mass/Vol] 0.2 mg/dL Normal 0.2-1.0 [facility] Comment on above: Performed By: #### H STROPN, CMP, BNP, MG #### [facility] [address] [place] [address] Dr. Linda Park Calcium [Mass/Vol] 9.1 mg/dL Normal 8.5-10.1 [facility] Comment on above: Performed By: #### H STROPN, CMP, BNP, MG #### [facility] [address] [place] [address] [address] Linda Park Chloride [Moles/Vol] 104 mmol/L Normal 98-107 [facility] Comment on above: Performed By: #### H STROPN, CMP, BNP, MG #### [facility] [address] [place] [address] [address] Linda Park CO2 [Moles/Vol] 30.8 mmol/L Normal 21.0-32.0 The [facility] Comment on above: Performed By: #### H STROPN, CMP, BNP, MG #### [facility] [address] [place] [address] [address] Linda Park Creatinine [Mass/Vol] 0.94 mg/dL Normal 0.55-1.02 [facility] Comment on above: Performed By: #### H STROPN, CMP, BNP, MG #### [facility] [address] [place] [address] [address] Linda Park EGFR-AF GREEK >60 Normal >=60 The [facility] Comment on above: Performed By: #### H STROPN, CMP, BNP, MG #### [facility] [address] [place] [address] [address] Linda Park EGFR-NON AF GREEK 58 mL/min/1.73m2 Critically low >=60 [facility] Comment on above: Performed By: #### H STROPN, CMP, BNP, MG #### [facility] [address] [place] [address] [address] Linda Park Globulin (S) [Mass/Vol] 3.5 g/dL Normal [facility] Comment on above: Performed By: #### H STROPN, CMP, BNP, MG #### [facility] [address] [place] [address] Dr. Linda Park Glucose [Mass/Vol] 78 mg/dL Normal 74-106 [facility] Comment on above: Performed By: #### H STROPN, CMP, BNP, MG #### [facility] [address] [place] [address] [address] Linda Park Potassium [Moles/Vol] 4.6 mmol/L Normal 3.5-5.1 [facility] Comment on above: Performed By: #### H STROPN, CMP, BNP, MG #### [facility] [address] [place] [address] Dr. Linda Park Protein [Mass/Vol] 7.2 g/dL Normal 6.4-8.2 [facility] Comment on above: Performed By: #### H STROPN, CMP, BNP, MG #### [facility] [address] [place] [address] Dr. Linda Park Sodium [Moles/Vol] 141 mmol/L Normal 136-145 [facility] Comment on above: Performed By: #### H STROPN, CMP, BNP, MG #### [facility] [address] [place] [address] Dr. Linda Park Urea nitrogen [Mass/Vol] 17.0 mg/dL Normal 7.0-18.0 [facility] Comment on above: Performed By: #### H STROPN, CMP, BNP, MG #### [facility] [address] [place], [place] [address] Dr. Linda Park Urea nitrogen/Creatinin e [Mass ratio] 18.1 mg/mg Normal [facility] Comment on above: Performed By: #### H STROPN, CMP, BNP, MG #### [facility] [address] [place] [address] [address] Linda Park TROPONIN, HIGH SENSITIVITYon 11-05-2022 HSTROP 9.2 pg/mL Normal 4.0-51.3 [facility] Comment on above: Result Comment: CUT- OFF POINTS HAVE BEEN ESTABLISHED BASED ON THE FOURTH UNIVERSAL DEFINITIONS OF MYOCARDIAL INFARCTION. THE UPPER REFERENCE LIMIT (URL) OF TROPONIN, DEFINED THE 99TH PERCENTILE OF cTnI DISTRIBUTION IN A REFERENCE POPULATION, HAS BEEN CONFIRMED THE DECISION THRESHOLD FOR [place] DIAGNOSIS. Performed By: #### H STROPN, CMP, BNP, MG #### [facility] [address] [place] [address] [address] Linda Park XR CHEST 2 Von [...] TERRENCE ALBERTO Date: 2022-11-05 18:32 Normal [facility] HEMOGRAM AND PLATELon 2022 Hematocrit (Bld) [Volume fraction] 27.8 % Critically low 36.0-48.0 [facility] Comment on above: Performed By: #### H STROPN, CMP, BNP, MG #### [facility] [address] [place] [address] [address] Linda Park Hemoglobin (Bld) [Mass/Vol] 8.8 g/dL Critically low 12.0-16.0 [facility] Comment on above: Performed By: #### H STROPN, CMP, BNP, MG #### [facility] [address] [place] [address] [address] Linda Park MCH (RBC) [Entitic mass] 29.0 pg Normal 26.7-34.0 [facility] Comment on above: Performed By: #### H STROPN, CMP, BNP, MG #### [facility] [address] [place] [address] [address] Linda Park MCHC (RBC) [Mass/Vol] 31.7 g/dL Normal 29.9-35.2 [facility] Comment on above: Performed By: #### H STROPN, CMP, BNP, MG #### [facility] [address] [place] [address] [address] Linda Park MCV (RBC) [Entitic vol] 91.7 fL Normal 81.0-99.0 [facility] Comment on above: Performed By: #### H STROPN, CMP, BNP, MG #### [facility] [address] [place] [address] Dr. Linda Park PLT 217 103/ul Normal 150-450 [facility] Comment on above: Performed By: #### H STROPN, CMP, BNP, MG #### [facility] [address] [place] [address] [address] Linda Park RBC 3.03 106/ul Critically low 4.20-5.40 [facility] Comment on above: Performed By: #### H STROPN, CMP, BNP, MG #### [facility] [address] [place] [address] Dr. Linda Park WBC 6.4 103/ul Normal 4.0-11.0 [facility] Comment on above: Performed By: #### H STROPN, CMP, BNP, MG #### [facility] [address] [place] [address] Dr. Linda Park LIPID PROFILEon 08-24-2022 CHOL-HDL RATIO NORM SEE BELOW Normal [facility] Comment on above: Result Comment: 3.3 - 4.4 LOW RISK 4.4 - 7.1 AVERAGE RISK 7.1 - 11.0 MODERATE RISK >11.0 HIGH RISK Performed By: #### H STROPN, CMP, BNP, MG #### [facility] [address] [place] [address] [address] Linda Park Cholesterol [Mass/Vol] 166 mg/dL Normal <=200 [facility] Comment on above: Performed By: #### H STROPN, CMP, BNP, MG #### [facility] [address] [place] [address] [address] Linda Park Cholesterol in HDL [Mass/Vol] 54 mg/dL Normal 40-60 [facility] Comment on above: Performed By: #### H STROPN, CMP, BNP, MG #### [facility] [address] [place] [address] [address] Linda Park Cholesterol in LDL [Mass/Vol] 70.8 mg/dL Normal [facility] Comment on above: Performed By: #### H STROPN, CMP, BNP, MG #### [facility] [address] [place] [address] [address] Linda Park Cholesterol.total/ Cholesterol in HDL [Mass ratio] 3.1 {ratio} Normal [facility] Comment on above: Performed By: #### H STROPN, CMP, BNP, MG #### [facility] [address] [place] [address] [address] Linda Park HDL NORMAL > or = 60 mg/dl - LO W CARDIOVASCULAR RISK <40 mg/dl - HIGH CARDIOVASCULAR RISK Normal [facility] Comment on above: Performed By: #### H STROPN, CMP, BNP, MG #### [facility] [facility] [address] [address] [address] Linda Park LDL CALC NORMAL SEE BELOW Normal [facility] Comment on above: Result Comment: <100 mg/dl OPTIMAL 100 - 129 mg/dl NEAR OR ABOVE OPTIMAL 130 - 159 mg/dl BORDERLINE HIGH 160 - 189 mg/dl HIGH >190 mg/dl VERY HIGH Performed By: #### H STROPN, CMP, BNP, MG #### [facility] [address] [address] [address] Linda Park Triglyceride [Mass/Vol] 206 mg/dL Critically high <=150 [facility] Comment on above: Performed By: #### H STROPN, CMP, BNP, MG #### [facility] [address] [address] [address] Linda Park VLDL CALC 41.2 mg/dL Normal [facility] Comment on above: Performed By: #### H STROPN, CMP, BNP, MG #### [facility] [address] [address] [address] Linda Park PROF 14(COMP METB)on 023 Albumin [Mass/Vol] 3.7 g/dL Normal 3.4-5.0 [facility] Comment on above: Performed By: #### H STROPN, CMP, BNP, MG #### [facility] [address] [address] [address] Linda Park Albumin/Globulin [Mass ratio] 1.1 {ratio} Normal [facility] Comment on above: Performed By: #### H STROPN, CMP, BNP, MG #### [facility] [address] [address] [address] Linda Park ALP [Catalytic activity/Vol] 84 U/L Normal 46-116 [facility] Comment on above: Performed By: #### H STROPN, CMP, BNP, MG #### [facility] [address] [address] [address] Linda Park ALT [Catalytic activity/Vol] 17 U/L Normal 14-59 [facility] Comment on above: Performed By: #### H STROPN, CMP, BNP, MG #### [facility] [address] [address] [address] Linda Park Anion gap [Moles/Vol] 11.8 mmol/L Normal [facility] Comment on above: Performed By: #### H STROPN, CMP, BNP, MG #### [facility] [address] [address] [address] Linda Park AST [Catalytic activity/Vol] 19 U/L Normal 15-37 [facility] Comment on above: Performed By: #### H STROPN, CMP, BNP, MG #### [facility] [address] [place] [address] Dr. Linda Park Bilirubin [Mass/Vol] 0.4 mg/dL Normal 0.2-1.0 [facility] Comment on above: Performed By: #### H STROPN, CMP, BNP, MG #### [facility] [address] [address] [address] Linda Park Calcium [Mass/Vol] 9.5 mg/dL Normal 8.5-10.1 [facility] Comment on above: Performed By: #### H STROPN, CMP, BNP, MG #### [facility] [address] [place] [address] Dr. Linda Park Chloride [Moles/Vol] 104 mmol/L Normal 98-107 [facility] Comment on above: Performed By: #### H STROPN, CMP, BNP, MG #### [facility] [address] [place] [address] Dr. Linda Park CO2 [Moles/Vol] 28.6 mmol/L Normal 21.0-32.0 [facility] Comment on above: Performed By: #### H STROPN, CMP, BNP, MG #### [facility] [address] [place] [address] Dr. Linda Park Creatinine [Mass/Vol] 0.87 mg/dL Normal 0.55-1.02 [facility] Comment on above: Performed By: #### H STROPN, CMP, BNP, MG #### [facility] [address] [place] [address] Dr. Linda Park EGFR-AF GREEK >60 Normal >=60 [facility] Comment on above: Performed By: #### H STROPN, CMP, BNP, MG #### [facility] [address] [place] [address] Dr. Linda Park EGFR-NON AF GREEK >60 Normal >=60 [facility] Comment on above: Performed By: #### H STROPN, CMP, BNP, MG #### [facility] [address] [address] [address] Linda Park Globulin (S) [Mass/Vol] 3.3 g/dL Normal [facility] Comment on above: Performed By: #### H STROPN, CMP, BNP, MG #### [facility] [address] [address] [address] Linda Park Glucose [Mass/Vol] 95 mg/dL Normal 74-106 [facility] Comment on above: Performed By: #### H STROPN, CMP, BNP, MG #### [facility] [address] [place] [address] Dr. Linda Park Potassium [Moles/Vol] 4.4 mmol/L Normal 3.5-5.1 [facility] Comment on above: Performed By: #### H STROPN, CMP, BNP, MG #### [facility] [address] [place] [address] Dr. Linda Park Protein [Mass/Vol] 7.0 g/dL Normal 6.4-8.2 [facility] Comment on above: Performed By: #### H STROPN, CMP, BNP, MG #### [facility] [address] [place] [address] Dr. Linda Park Sodium [Moles/Vol] 140 mmol/L Normal 136-145 [facility] Comment on above: Performed By: #### H STROPN, CMP, BNP, MG #### [facility] [address] [place] [address] Dr. Linda Park Urea nitrogen [Mass/Vol] 14.0 mg/dL Normal 7.0-18.0 [facility] Comment on above: Performed By: #### H STROPN, CMP, BNP, MG #### [facility] [address] [place] [address] Dr. Linda Park Urea nitrogen/Creatinin e [Mass ratio] 16.1 mg/mg Normal [facility] Comment on above: Performed By: #### H STROPN, CMP, BNP, MG #### [facility] [address] [address] [address] Linda Park XR LSPINE MIN 4 [...] JAMIR SANCHEZ Date: 2022-04-30 06:55 Normal [facility] MAMM SCREEN 3D GONZALEZ CADon 03-05-2022 MG MAMM SCREEN 3D GONZALEZ CAD Patient: ELLI LINDSEY Exam Date: 03/05/2022 : 1945 Gender:F Ordering : DR DOCTOR ZAVALA Admission #: [id number] Family : DR. SAMINA GEE M.D. Order #: [id number] CLICK HERE TO VIEW EXAM RADIOLOGY REPORT [...] unknown cancer at age 72. LOCATION: [facility] BREAST COMPOSITION: Scattered areas fibroglandular density. [...] [place] Basic Metabolic Profon 09-30 (cont.) Normal [facility] Comment on above: Result Comment: Aver age GFR for 70 or more years old: 75 mL/min/1.73sq mChronic Kidney Disease: <60 mL/min/1.73sq mKidney failure: <15 mL/min/1.73sq meGFR calculated using average adult body mass. Additional eGFR calculator available at:http://[email or web address]/multiple_crcl_[email or web address] at [facility] [address] [place] [address] Performed By: #### C DP, ALCB, BMP, TSH ####[address] [address] Anion gap 13 mmol/L Normal 9-17 [facility] Comment on above: Performed By: #### C DP, ALCB, BMP, TSH ####[address] [address] BUN/CRE Ratio 26 High 9-20 [facility] Comment on above: Performed By: #### C DP, ALCB, BMP, TSH ####[address] [address] Calcium 9.4 mg/dL Normal 8.6-10.4 [facility] Comment on above: Performed By: #### C DP, ALCB, BMP, TSH ####[place] [address] Chloride 101 mmol/L Normal 98-107 [facility] Comment on above: Performed By: #### C DP, ALCB, BMP, TSH ####[facility] [address] CO2 25 mmol/L Normal 20-31 [facility] Comment on above: Performed By: #### C DP, ALCB, BMP, TSH ####[address] [address] Creatinine 0.66 mg/dL Normal 0.50-0.90 [facility] Comment on above: Performed By: #### C DP, ALCB, BMP, TSH ####[address] [address] eGFR (non-black) mL/min/{1.73_m2} Normal >60 [facility] Comment on above: Performed By: #### C DP, ALCB, BMP, TSH ####[address] [address] Glucose mass conc 92 mg/dL Normal 70-99 [facility] Comment on above: Performed By: #### C DP, ALCB, BMP, TSH ####[address] [address] Potassium molar conc 4.1 mmol/L Normal 3.7-5.3 [facility] Comment on above: Performed By: #### C DP, ALCB, BMP, TSH ####[address] [address] Sodium 139 mmol/L Normal 135-144 [facility] Comment on above: Performed By: #### C DP, ALCB, BMP, TSH ####[address] [address] Urea nitrogen 17 mg/dL Normal 8-23 [facility] Comment on above: Performed By: #### C DP, ALCB, BMP, TSH ####[address] [address] Staging: NOT REPORTED Normal [facility] Comment on above: Performed By: #### C DP, ALCB, BMP, TSH ####[address] [address] CBC with Diffon 09-30-2017 Abs. Basophil 0.00 k/uL Normal 0.0-0.2 [facility] Comment on above: Result Comment: Perf ormed at [facility] [address] [place] [address] Performed By: #### C DP, ALCB, BMP, TSH ####[place] [address] Abs.Neutrophil (Seg) 4.30 k/uL Normal 1.8-7.7 [facility] Comment on above: Performed By: #### C DP, ALCB, BMP, TSH ####[address] [address] Basophils/100 WBC Auto (Bld) 1 % Normal 0-2 [facility] Comment on above: Performed By: #### C DP, ALCB, BMP, TSH ####[address] [address] Eosinophils 0.10 10*3/uL Normal 0.0-0.4 [facility] Comment on above: Performed By: #### C DP, ALCB, BMP, TSH ####[place] [address] Eosinophils/100 leukocytes 3 % Normal 1-4 [facility] Comment on above: Performed By: #### C DP, ALCB, BMP, TSH ####[facility] [address] [place] [address] Erythrocyte distribution width Auto Ratio (RBC) 13.6 % Normal 11.5-14.5 [facility] Comment on above: Performed By: #### C DP, ALCB, BMP, TSH ####[address] [address] Erythrocytes (RBC) 3.66 10*6/uL Low 4.0-5.2 [facility] Comment on above: Performed By: #### C DP, ALCB, BMP, TSH ####[facility] [place] [address] Hematocrit (HCT) 35.9 % Low 36-46 [facility] Comment on above: Performed By: #### C DP, ALCB, BMP, TSH ####[address] [address] Hemoglobin mass conc (Bld) 12.1 g/dL Normal 12.0-16.0 [facility] Comment on above: Performed By: #### C DP, ALCB, BMP, TSH ####[address] [address] Lymphocytes 1.00 10*3/uL Normal 1.0-4.8 [facility] Comment on above: Performed By: #### C DP, ALCB, BMP, TSH ####[address] [address] Lymphocytes/100 leukocytes 17 % Low 24-44 [facility] Comment on above: Performed By: #### C DP, ALCB, BMP, TSH ####[address] MCH 33.1 pg Normal 26-34 [facility] Comment on above: Performed By: #### C DP, ALCB, BMP, TSH ####[place] [address] MCHC mass conc (RBC) 33.7 g/dL Normal 31-37 [facility] Comment on above: Performed By: #### C DP, ALCB, BMP, TSH ####[address] [address] MCV 98.1 fL Normal 80-100 [facility] Comment on above: Performed By: #### C DP, ALCB, BMP, TSH ####[place] [address] Monocytes 0.30 10*3/uL Normal 0.2-0.8 [facility] Comment on above: Performed By: #### C DP, ALCB, BMP, TSH ####[place] [address] Monocytes/100 leukocytes 6 % Normal 1-7 [facility] Comment on above: Performed By: #### C DP, ALCB, BMP, TSH ####[place] [address] Neutrophil (Seg) 73 % High 36-66 [facility] Comment on above: Performed By: #### C DP, ALCB, BMP, TSH ####[place] [address] Platelet mean volume (PMV) 7.9 fL Normal 6.0-12.0 [facility] Comment on above: Performed By: #### C DP, ALCB, BMP, TSH ####[place] [address] Platelets 206 10*3/uL Normal 130-400 [facility] Comment on above: Performed By: #### C DP, ALCB, BMP, TSH ####[address] [address] WBC (Leukocytes) 5.8 10*3/uL Normal 3.5-11.0 [facility] Comment on above: Performed By: #### C DP, ALCB, BMP, TSH ####[address] [address] Auto Diff Performed NOT REPORTED Normal [facility] Comment on above: Performed By: #### C DP, ALCB, BMP, TSH ####[address] [address] Erythrocyte morphology NOT REPORTED Normal [facility] Comment on above: Performed By: #### C DP, ALCB, BMP, TSH ####[address] [address] Erythrocytes (RBC) NOT REPORTED Normal [facility] Comment on above: Performed By: #### C DP, ALCB, BMP, TSH ####[address] [address] Granulocytes/100 WBC (Bld) NOT REPORTED Normal 0.00-0.30 [facility] Comment on above: Performed By: #### C DP, ALCB, BMP, TSH ####[address] [address] Immature granulocytes #/vol (Bld) NOT REPORTED Normal 0 [facility] Comment on above: Performed By: #### C DP, ALCB, BMP, TSH ####[address] [address] Platelets NOT REPORTED Normal [facility] Comment on above: Performed By: #### C DP, ALCB, BMP, TSH ####[address] [address] WBC Morphology NOT REPORTED Normal [facility] Comment on above: Performed By: #### C DP, ALCB, BMP, TSH ####[address] [address] Drug Scr, Abuse, Uron 2017 Amphetamine(s),Ur Negative Normal NEG [facility] Comment on above: Result Comment: (Pos itive cutoff 1000 ng/mL) Performed By: #### D AU ####[address] [address] Barbiturate(s),Ur Negative Normal NEG [facility] Comment on above: Result Comment: (Pos itive cutoff 200 ng/mL) Performed By: #### D AU ####[address] [address] Base excess Negative Normal NEG [facility] Comment on above: Result Comment: (Pos itive cutoff 300 ng/mL) Performed By: #### D AU ####[address] [address] Benzodiazepine(s) Positive Abnormal NEG [facility] Comment on above: Result Comment: (Pos itive cutoff 200 ng/mL) Performed By: #### D AU ####[address] [address] Cannabinoid(s),Ur Negative Normal NEG [facility] Comment on above: Result Comment: (Pos itive cutoff 50 ng/mL) Performed By: #### D AU ####[address] [address] Interpretive Info Assay provides medic al screening only. The absence of expected drug(s) and/or Normal [facility] Comment on above: Result Comment: meta bolite(s) may indicate diluted or adulterated urine, limitations of testing or timing of collection.Testing for legal purposes should be confirmed by another method. To request confirmation of test result, please call the lab within 7 days of sample submission.Performed at [facility] [address] [place] [address] Performed By: #### D AU ####[address] [address] Opiate(s), Ur Negative Normal NEG [facility] Comment on above: Result Comment: (Pos itive cutoff 300 ng/mL) Performed By: #### D AU ####[address] [address] Oxycodone, Urine Positive Abnormal NEG [facility] Comment on above: Result Comment: (Pos itive cutoff 100 ng/mL) Performed By: #### D AU ####[address] [address] Phencyclidine, Ur Negative Normal NEG [facility] Comment on above: Result Comment: (Pos itive cutoff 25 ng/mL) Performed By: #### D AU ####[address] [address] Urine, methadone presence Negative Normal NEG [facility] Comment on above: Result Comment: (Pos itive cutoff 300 ng/mL) Performed By: #### D AU ####[address] [address] Buprenorphrine, Ur NOT REPORTED Normal NEG [facility] Comment on above: Performed By: #### D AU ####[address] [address] MDMA, Urine NOT REPORTED Normal NEG [facility] Comment on above: Performed By: #### D AU ####[address] [address] Methamphetamine, Ur NOT REPORTED Normal NEG [facility] Comment on above: Performed By: #### D AU ####[address] [address] Propoxyphene,Urine NOT REPORTED Normal NEG [facility] Comment on above: Performed By: #### D AU ####[address] [address] Urine, tricyclic antidepressants NOT REPORTED Normal NEG [facility] Comment on above: Performed By: #### D AU ####[address] [address] Ethanol Alcoholon 09-30-2017 Ethanol mg/dL Normal <10 [facility] Comment on above: Performed By: #### C DP, ALCB, BMP, TSH ####[address] [address] Ethanol percent <0.010 Normal [facility] Comment on above: Result Comment: Perf ormed at [address] [place] [address] Performed By: #### C DP, ALCB, BMP, TSH ####[address] [address] Thyroid Stim. Horm.on 2017 Thyroid stimulating hormone (TSH) 0.87 m[IU]/L Normal 0.30-5.00 [facility] Comment on above: Result Comment: Perf ormed at [facility] [address] [place] [address] Performed By: #### C DP, ALCB, BMP, TSH ####[facility] [place] [address] [facility] DIGITAL DIAGNOSTIC BILAT ERALon 04-27-2017 [facility] DIGITAL DIAGNOSTIC BILATERAL This is a summary [...] sent to the patient regarding the results.[employer] recommends annual mammograms for women 40years and older.Interpreted by:TIM Rboinigned by:Elli Aparicio MD04/27/17CC Recipients:Mark Francois MD - In Wander Gee - FaxFinal result Normal [facility] Vital Signs Date Time Vital Sign Value Performing Clinician Facility 09-14-2024 11:31-0400 Body height 139.7 cm Baltazar Coronado DPM Work Phone: [facility] 09-14-2024 11:31-0400 Respiratory rate 16 /min Baltazar Cliff DPM Work Phone: [facility] 07-06-2024 11:21-0500 Body height 139.7 cm Baltazar Coronado DPM Work Phone: [facility] 07-06-2024 11:21-0500 Respiratory rate 16 /min Baltazar Coronado DPM Work Phone: [facility] 05-08-2024 12:37-0500 Body height 152.4 cm Ken Jones MD Work Phone: [facility] 05-08-2024 12:37-0500 Body mass index (BMI) [Ratio] 36.29 kg/m2 Ken Jones MD Work Phone: [facility] 05-08-2024 12:37-0500 Body weight 84.28 kg Ken Jones MD Work Phone: [facility] 05-08-2024 12:37-0500 Diastolic blood pressure 98 mm[Hg] Ken Jones MD Work Phone: [facility] 05-08-2024 12:37-0500 Heart rate 73 /min Ken Jones MD Work Phone: [facility] 05-08-2024 12:37-0500 SaO2% (BldA) [Mass fraction] 97 % Ken Jones MD Work Phone: [facility] 05-08-2024 12:37-0500 Systolic blood pressure 144 mm[Hg] Ken Jones MD Work Phone: [facility] 02-07-2024 11:10-0400 Diastolic blood pressure 66 mm[Hg] CAROLINE Chen Work Phone: [facility] 02-07-2024 11:10-0400 Heart rate 65 /min CAROLINE Chen Work Phone: [facility] 02-07-2024 11:10-0400 Respiratory rate 16 /min BALLAST REGULATOR OPERATORJose Chen Work Phone: [facility] 02-07-2024 11:10-0400 SaO2% (BldA) [Mass fraction] 98 % BALLAST REGULATOR OPERATORJose Chen Work Phone: [facility] 02-07-2024 11:10-0400 Systolic blood pressure 127 mm[Hg] BALLAST REGULATOR OPERATORJose Chen Work Phone: [facility] 02-07-2024 09:190400 Body height 154.94 cm BALLAST REGULATOR OPERATORJose Chen Work Phone: [facility] 02-07-2024 09:0400 Body weight 81.19 kg BALLAST REGULATOR OPERATORJose Chen Work Phone: [facility] Encounters Encounter Date Encounter Type Care Provider Facility Start: 11-01-2024 End: 11-01-2024 ambulatory [facility] Start: 09-14-2024 End: 09-14-2024 Bamboo [...] on above: 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 (Primary Dx); Pulmonary hypertension ([facility]); Benign essential hypertension; Dyslipidemia; Dyspnea on exertion Start: 05-08-2024 End: 05-08-2024 [facility] [place] [facility] Start: 05-05-2024 End: 05-05-2024 Telephone encounter Marsha Layne CMA [facility] Start: 04-12-2024 End: 04-26-2024 Telephone encounter Kimberlee Garza [facility] Work Phone: [facility] Comment on above: Hearing Aid Problem Start: 03-30-2024 End: 03-31-2024 Refill Denise Araiza RN [facility] Comment on above: Med Refill Start: 02-07-2024 End: 02-07-2024 Admission to same day surgery center CAROLINE Chen Work Phone: [facility] [place] Work Phone: Start: 02-07-2024 End: 02-07-2024 ambulatory CAROLINE Chen Work Phone: [facility] Work Phone: Start: 01-26-2024 End: 01-26-2024 ambulatory BOONE JHA [facility] Start: 07-12-2023 Orders Only Shukri Jeong MD Work Phone: [facility] Start: 11-05-2022 End: 11-06-2022 ambulatory ADI SHAMMO Facility:[facility] Start: 09-24-2022 End: 09-25-2022 ambulatory RCJACOB ALECKARIEPATRICIO . Facility:[facility] Start: 08-25-2022 Encounter for genera l adult medical examination without abnormal findings ADICARLOS FIGUEROA [facility] Start: 08-25-2022 Encounter for preprocedural cardiovascular examination DR BEAU WILDER . [facility] Start: 08-25-2022 End: 08-25-[address] [...] 09-30-2017 Emergency department patient visit MEGHANN GEE [facility] Start: 07-20-2017 Patient encounter procedure Shukri Jeong MD Work Phone: [facility] Start: 04-27-2017 End: 04-28-2017 Ambulatory KENZIE ALMONTE [facility] Procedures Date Procedure Procedure Detail [...] Td Vaccines (2 - Td or Tdap) [facility] Start: 05-08-2025 Tobacco Screening Tobacco Screening [facility] Start: 11-23-2024 End: 11-23-2024 Patient encounter procedure 11/23/2024 1:00 PM EDT Procedure Visit [facility] [address] [facility] [address] [place] [address] Baltazar Coronado DPM [address] [facility] [address] [place] [address] [facility] Start: 09-14-2024 End: 09-14-2024 Patient encounter procedure [facility] Comment on above: 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 (Primary Dx); Metatarsal deformity, left; Metatarsal deformity, right Start: 07-06-2024 End: 07-06-2024 Patient encounter procedure [facility] Comment on above: Arrived Start: 06-16-2024 COVID-19 Vaccine ( season) COVID-19 Vaccine () [facility] Start: 05-15-2024 End: 05-08-2025 Basic metabolic 2000 panel - Serum or Plasma Basic Metabolic Panel Lab Routine Coronary artery disease involving kaw coronary artery of 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 angina pectoris Pulmonary hypertension ([facility]) Benign essential hypertension Dyslipidemia Dyspnea on exertion Expected: 05/15/2024, Expires: 05/08/2025 [facility] Work Phone: Comment on above: Expected: 05/15/2024 , Expires: 05/08/2025 Start: 05-09-2024 End: 05-09-2024 Patient encounter procedure 05/09/2024 10:00 AM EST Office Visit [facility] [address] [place] [id number] Ken Jones MD [address] [place] [address] [facility] Start: 05-08-2024 End: 05-08-2024 Patient encounter procedure 05/08/2024 12:45 PM EST Office Visit [facility] [address] [place] [phone] Ken Jones MD [address] [place] [address] [facility] Start: 03-02-2024 Adult BMI Screening Adult BMI Screen ing [facility] Start: 03-02-2024 Tobacco Screening Tobacco Screening [facility] Start: 02-13-2024 COVID-19 Vaccine ( season) COVID-19 Vaccine () [facility] Start: 02-13-2024 COVID-19 Vaccine ( season) COVID-19 Vaccine () [facility] Start: 02-13-2024 Influenza vaccination Influenza Vacc ine [facility] Start: 02-07-2024 [facility] Start: 02-07-[address] [facility] Start: 06-01-2023 Adult BMI Follow Up Plan Adult BMI Follow Up Plan [facility] Start: 02-12-2023 COVID-19 Vaccine ( season) COVID-19 Vaccine () [facility] Start: 02-12-2023 Influenza vaccination Influenza Vacc ine [facility] Start: 08-18-2022 Depression Screening Depression Scre ening [facility] Start: 02-18-2022 Fall Risk Screening Fall Risk Screen ing [facility] Start: 02-18-2022 Medicare Annual Well ness Visit Medicare Annual Wellness Visit [facility] Start: 2010 Fall Risk Screening Fall Risk Screen ing [facility] End: 03-30-2025 Basic metabolic 2000 panel - Serum or Plasma Basic Metabolic Panel Lab Routine Coronary artery disease involving kaw coronary artery of 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 angina pectoris 1 Occurrences starting 03/31/2024 until 03/30/2025 [facility] Work Phone: Comment on above: 1 Occurrences starti ng 03/31/2024 until 03/30/2025 End: 03-30-2025 Magnesium [Mass/volume] in Serum or Plasma Magnesium Lab Routine Coronary artery disease involving kaw coronary artery of 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 angina pectoris 1 Occurrences starting 03/31/2024 until 03/30/2025 [facility] Comment on above: 1 Occurrences starti ng 03/31/2024 until 03/30/2025 Patient Education [facility] Bone Marrow Aspiration or Biopsy Know your Meds [facility] Work Phone: Immunizations Immunization Date Immunization Notes Care Provider Fa cility 03-04-2023 influenza virus vacc ine, unspecified formulation Denise Araiza RN [facility] 03-04-2022 influenza, injectabl e, quadrivalent, preservative free Shukri Jeong MD Work Phone: [facility] 03-04-2022 influenza virus vacc ine, unspecified formulation Shukri Jeong MD Work Phone: [facility] 04-04-2021 influenza, injectabl e, quadrivalent, contains preservative Shukri Jeong MD Work Phone: [facility] 03-13-2021 COVID-19, mRNA, LNP- S, PF, 30mcg/0.3mL Dose Shukri Jeong MD Work Phone: [facility] 08-13-2020 COVID-19, mRNA, LNP- S, PF, 30mcg/0.3mL Dose Shukri Jeong MD Work Phone: [facility] 07-22-2020 COVID-19, mRNA, LNP- S, PF, 30mcg/0.3mL Dose Shukri Jeong MD Work Phone: [facility] 02-06-2020 influenza, injectabl e, quadrivalent, preservative free Shukri Jeong MD Work Phone: [facility] 04-06-2019 zoster vaccine recombinant Shukri Jeong MD Work Phone: [facility] 03-09-2019 influenza, high dose seasonal, preservative-free Shukri Jeong MD Work Phone: [facility] 09-01-2018 zoster vaccine recombinant Shukri Jeong MD Work Phone: [facility] 02-17-2018 Seasonal trivalent influenza vaccine, adjuvanted, preservative free Shukri Jeong MD Work Phone: [facility] 08-26-2017 pneumococcal polysaccharide vaccine, 23 valent Shukri Jeong MD Work Phone: [facility] 02-10-2017 influenza virus vacc ine, unspecified formulation Shukri Jeong MD Work Phone: [facility] 02-20-2016 influenza, seasonal, injectable, preservative free Shukri Jeong MD Work Phone: [facility] 10-09-2015 pneumococcal conjuga te vaccine, 13 valent Shukri Jeong MD Work Phone: [employer] 03-08-2015 Influenza TIV (IM) Shukri soto MD Work Phone: [employer] 07-07-2013 pneumococcal polysaccharide vaccine, 23 diaz Jeong MD Work Phone: [employer] 06-14-2007 pneumococcal polysaccharide vaccine, 23 diaz Jeong MD Work Phone: [employer] 02-26-1999 pneumococcal polysaccharide vaccine, 23 diaz Jeong MD Work Phone: [employer] Payers Date Payer Category Payer Medicare (Managed Care) 1.2. [id number] 2024 Self-pay 2024 Private Health Insurance [id number] 2023 Medicare [id number] 2022 Unknown BCBS [facility] HMO/PPO/TRUST [id number] 2022-[facility] [phone] [place] [address] [id number] 2014 Medicare [id number] 2010 Medicare [id number] 1959 Medicare [id number] 1959 Medicare [id number] 1959 Unknown [id number] 1945 Unknown [id number] 2.16.840.1.635284.3.579.2. 593 1945 Unknown [id number] 2.16.840.1.898024.3.579.2. 593 1945 Unknown [id number] 2.16.840.1.839912.3.579.2. 593 1945 Unknown [id number] 2.16.840.1.960288.3.579.2. 593 1945 Unknown [id number] 2.16.840.1.258471.3.579.2. 593 1945 Unknown [id number] 2.16.840.1.827415.3.579.2. 593 1945 Unknown [id number] 2.16.840.1.979518.3.579.2. 593 1945 Unknown [id number] 2.16.840.1.717478.3.579.2. 593 1945 Unknown [id number] 2.16.840.1.057066.3.579.2. 593 1945 Unknown [id number] 2.16.840.1.104095.3.579.2. 593 1945 Unknown [id number] 2.16.840.1.078880.3.579.2. 593 1945 Unknown [id number] 2.16.840.1.991580.3.579.2. 593 1945 Unknown [id number] 2.16.840.1.401573.3.579.2. 1259 1945 Unknown [id number] 2.16.840.1.797470.3.579.2. 1259 1945 Unknown [id number] 2.16.840.1.119520.3.579.2. 1286 1945 Unknown [id number] 2.16.840.1.097906.3.579.2. 1286 1945 Unknown [id number] 2.16.840.1.359678.3.579.2. 1286 Unknown [id number] 2.16.840.1.073880.3.579.2. 531 Social History Date Type Detail Facility Start: 02-22-2023 End: 02-07-2024 Tobacco smoking status NHIS Never smoked tobacco (finding) [facility] Start: 1945 Sex Assigned At Female F [facility] Start: 02-22-2023 End: 07-06-2024 History of Social function [facility] Start: 02-22-2023 End: 07-06-2024 Tobacco use panel [facility] Start: 1945 Sex assigned at Not on file P [facility] Start: 06-01-2022 Tobacco use and exposure Smoke less tobacco non-user [facility] Start: 03-02-2023 End: 05-08-2024 Alcohol intake Current drinker of alcohol (finding) [facility] Frequency of Communi cation with Friends and Family Three times a week [facility] Start: 03-09-2019 Education 14 [facility] Start: 01-15-2015 Sex Female (finding) [facility] Clinical Notes 06-23-2022 to 09-14-2024 Baltazar [...] Resource Strain: Low Risk (03/09/2019) Received from [employer] Overall Financial Resource Strain (CARDIA) Difficulty of Paying Living Expenses: Not hard at all Food Insecurity: No Food Insecurity (05/08/2024) Received from [employer] [facility] Hunger Screening Within the past 12 months we worried whether our food would run out before we got money to buy more.: Never True Within the past 12 months the food we bought just didn't last and we didn't have money to get more.: Never True Transportation Needs: No Transportation Needs (03/09/2019) Received from [employer] PRAPARE - Transportation Lack of Transportation (Medical): No Lack of Transportation (Non-Medical): No Physical Activity: Sufficiently Active (03/09/2019) Received from [employer] Exercise Vital Sign Days of Exercise per Week: 7 days Minutes of Exercise per Session: 50 min Stress: Stress Concern Present (03/09/2019) Received from [employer] [place] [facility] [employer] [facility] - Occupational Stress Questionnaire Feeling of Stress : To some extent Social Connections: Socially Integrated (03/09/2019) Received from [facility] Social Connection and Isolation Panel [NHANES] Frequency of Communication with Friends and Family: Three times a week Frequency of Social Gatherings with Friends and Family: Three times a week Attends Shinto Services: More than 4 times per year [...] Baltazar Coronado DPM documented in this encounter [facility] 07-06-2024 History of Presen t illness [...] Past Medical History: Diagnosis Date Breast cancer ([facility]) Medications: No current outpatient medications on file. [...] Resource Strain: Low Risk (03/09/2019) Received from [facility] Overall Financial Resource Strain (CARDIA) Difficulty of Paying Living Expenses: Not hard at all Food Insecurity: No Food Insecurity (05/08/2024) Received from [facility] [facility] Hunger Screening Within the past 12 months we worried whether our food would run out before we got money to buy more.: Never True Within the past 12 months the food we bought just didn't last and we didn't have money to get more.: Never True Transportation Needs: No Transportation Needs (03/09/2019) Received from [facility] [facility] PRAPARE - Transportation Lack of Transportation (Medical): No Lack of Transportation (Non-Medical): No Physical Activity: Sufficiently Active (03/09/2019) Received from [employer] Exercise Vital Sign Days of Exercise per Week: 7 days Minutes of Exercise per Session: 50 min Stress: Stress Concern Present (03/09/2019) Received from [employer] [place] [facility] [employer] - Occupational Stress Questionnaire Feeling of Stress : To some extent Social Connections: Socially Integrated (03/09/2019) Received from [employer] Social Connection and Isolation Panel [NHANES] Frequency of Communication with Friends and Family: Three times a week Frequency of Social Gatherings with Friends and Family: Three times a week Attends Shinto Services: More than 4 times per year [...] Baltazar Coronado DPM documented in this encounter [facility] 05-08-2024 History of Presen t illness Narrative Mariela Lindsey Date of visit: 05/08/2024 Date of : 1945 Age: 78 y.o. Patient Active Problem List Diagnosis Benign essential hypertension Chronic right-sided low back pain with right-sided sciatica Dyslipidemia Malignant neoplasm of female breast ([facility]) Temporomandibular joint disorder Pseudophakia Medicare annual wellness visit, subsequent Pain in both knees Severe obesity (BMI 35.0-39.9) with comorbidity ([facility]) Gastroesophageal reflux disease with esophagitis Thoracic outlet syndrome Depressive disorder Tension headache Sprain of right rotator cuff capsule Spinal stenosis of lumbar region Facet arthritis of lumbar region Scoliosis of lumbar spine Abnormal echocardiogram Pulmonary hypertension ([facility]) Allergies Allergen Reactions Hay Fever And Allergy [...] 0.5 tablets before bedtime. 90 tablet 0 icieqdxx-dcec-UO-calcium &mins (THERAGRAN-M) 9 mg iron-400 mcg tablet [...] Past Medical History: Diagnosis Date Breast cancer ([facility]) 2013 RT GERD (gastroesophageal reflux disease) Hyperlipidemia Hypertension Menopausal syndrome (hot flashes) No data recorded No data recorded No data recorded Past Surgical History: Procedure Laterality Date APPENDECTOMY BELPHAROPTOSIS REPAIR Bilateral BLEPHAROPLASTY W/ LASER BREAST BIOPSY BREAST LUMPECTOMY Right 2013 RADIATION AND CHEMO Cardiac catheterization- Cors + Right heart + LV gram/press 12176 N/A 02/08/2023 Performed by Abdiel Lemus MD at [facility] CARDIAC CATH LABS CATARACT EXTRACTION Bilateral [...] 50 min Stress: Stress Concern Present (03/09/2019) [place] [facility] [employer] [facility] - Occupational Stress Questionnaire Feeling of Stress : To some extent Social Connections: Socially Integrated (03/09/2019) Social Connection and Isolation Panel [NHANES] Frequency of Communication with Friends and Family: Three times a week Frequency of Social Gatherings with Friends and Family: Three times a week Attends Shinto Services: More than 4 times per year [...] medications. IMPRESSIONS/PLAN 1. Coronary artery disease involving kaw coronary artery of 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 angina pectoris - POCT EKG 2. Pulmonary hypertension (CMS-HCC) 3. Benign essential hypertension 4. Dyslipidemia 5. 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 PCP: HEATHER ZIMMERMAN Referring Physician: KANIKA BillPROFILER OPERATOR [address] [place] [address] [facility] 05-05-2024 Miscellaneous Notes Called patient to remind them to bring their most current copy of their medication list with them to their appt. Patient verbalizes understanding. [facility] 05-05-2024 Telephone encounter Note Called patient to remind them to bring their most current copy of their medication list with them to their appt. Patient verbalizes understanding. [facility] Telephone encounter Note Patient called. I tracked order and aids arrived today from [employer]. Told patient the aids could be sent to [facility] where she can pick them up. [facility] hours were reviewed. [facility] 04-25-2024 Miscellaneous Notes Patient called. I tracked order and aids arrived today from [employer]. Told patient the aids could be sent to [facility] where she can pick them up. [facility] hours were reviewed. Pt wants us to call her at [phone] when her aids are back from repair [...] back from [employer] documented in this encounter [facility] 04-17-2024 Telephone encounter Note Pt wants us to call her at [phone] when her aids are back from repair [facility] Work Phone: 04-12-2024 Telephone encounter Note [...] her when aids are back from [employer] [facility] 03-30-2024 Miscellaneous Notes Last OV 03/02/23 Pt will call to make appt Last [facility] 12/18/22 Orders placed for BMP and Mg.slm documented in this encounter [facility] 03-30-2024 Telephone encounter Note Last OV 03/02/23 Pt will call to make appt Last [facility] 12/18/22 Orders placed for BMP and Mg.slm [facility] 09-24-2022 Note CONSULTATION CONSULTATION DATE: [...] this infrequently. She is no longer on Arap[place]oe, since at least July. Her GERALDO on [...] our patients to inform us about any zdec-mkv-pdodkvl medications or herbal remedies/nutritional supplements/alternative remedies. 2. [...] options with their primary care provider. [facility] 08-20-2022 Note CONSULTATION CONSULTATION DATE: 08/20/2022 [...] Medications include Celebrex 200 mg daily, multivitamin, Arap[place]oe 5/325 daily p.r.n., Excedrin and baclofen 10 [...] L4, L5. She is to continue her [place] 5/325 daily p.r.n. and I highly encouraged her to use a heat rub and heat application once to twice daily. Patient agrees with this plan of care and will be brought back to the clinic thereafter. [facility] 07-23-2022 Note PAIN MANAGEMENT CONS ULTATION [...] greatly aggravate her pain. Current medications include [place] 5/325 daily p.r.n., baclofen 10 mg q.h.s. [...] followed up in the office thereafter. [facility] 06-23-2022 Note CONSULTATION CONSULTATION DATE: 06/23/2022 [...] the possibility of a neurosurgical consult at [facility]. The patient's PAST MEDICAL HISTORY [...] PLAN: We will start the patient on [place] 5/325 one tablet p.o. daily. The patient [...] would like to proceed. CC: DEIRDRE Bill [facility] Evaluation note No assessment inform ation available [facility] Work Phone: Evaluation note Diagnosis Metatarsal deformity, right- Primary Pain due to onychomycosis of toenails of both feet Metatarsal deformity, left documented in this encounter [facility] HealthcareEvaluation note* Diagnosis Coronary artery disease involving kaw coronary artery of 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 angina pectoris- Primary [facility] Diagnosis Coronary artery disease involving kaw coronary artery of 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 angina pectoris- Primary Pulmonary hypertension (CMS-HCC) Other chronic pulmonary heart diseases Benign essential hypertension Essential hypertension, benign Dyslipidemia Other and unspecified hyperlipidemia Dyspnea on exertion Other dyspnea and respiratory abnormality documented in this [facility]* Diagnosis Metatarsal deformity, left- Primary Pain due to onychomycosis of toenails of both feet Metatarsal deformity, right documented in this encounter [facility] HealthcareInstructionsNot on filedocumented in this encounterProMedinc Health SystemInstructionsNot on filedocumented in this encounterPro[facility] SystemInstructionsNot on filedocumented in this encounterPro[facility] Summary Purpose Family History No [...] Documents on File Type Date 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 Living Will 10/11/2015 2:28 PM Chief Complaint and Reason for Visit Chief Complaint refractory anemia ev al for mds Additional Source Comments INFORMATION SOURCE (unrecogn ized section and content) DATE CREATED AUTHOR 12/02/2017 [facility] DATE CREATED AUTHOR AUTHOR'S ORGANIZ ATION 11/20/2022 [facility] DATE CREATED AUTHOR AUTHOR'S ORGANIZ ATION 02/12/2024 [facility] DATE CREATED AUTHOR AUTHOR'S ORGANIZ ATION 09/17/2024 [facility] EPIC DATE CREATED AUTHOR AUTHOR'S ORGANIZ ATION 11/08/2024 [facility] Care Teams (unrecognized sec tion and content) Team Status: Active Member Role Status Dates Chanell Chen APRN Primary Care Provider Active Team Status: Inactive Member Role Status Dates Claribel Pickett MD Attending Provider Active St art: February 07, 2024 End: February 07, 2024 Chanell Chen APRN Primary Care Provider Active Start: February 07, 2024 End: February 07, 2024 Sanitation Associate Relationship Specialty Start Date End Date Adi Figueroa APRN-CNP [address] [place] [id number] PCP - General Primary Care 06/01/22 Sanitation Associate Relationship Specialty Start Date End Date Adi Figueroa APRN-CNP [address] [place] [id number] PCP - General Primary Care 06/01/22 Sanitation Associate Relationship Specialty Start Date End Date Gustavo, Chanell, BALLAST REGULATOR OPERATOR-MASONRY TEACHER [address] [facility] [place] [address] PCP - General Family Medicine 05/08/24 Sanitation Associate Relationship Specialty Start Date End Date Adi FigueroaCAROLINE-PROFILER OPERATOR [address] [place], [place] [id number] PCP - General Primary Care 06/01/22 Sanitation Associate Relationship Specialty Start Date End Date Unallocated, Christel Edmond MD [address] [place] [id number] PCP - General Family Medicine 09/14/24 Sanitation Associate Relationship Specialty Start Date End Date Unallocated, Christel Edmond MD [address] [place] [id number] PCP - General Family Medicine 09/14/24 Goals [...] BE BASED ON THE PRIMARY CLINICAL RECORDS. [facility] [employer] [facility]. provides no warranty or guarantee of the accuracy or completeness of information in this document.
[2025-03-06 10:57] LABS: Hematocrit 28.7 % (36.0-48.0); Hemoglobin 9.5 g/dL (12.0-16.0); Immature Granulocytes Abs Auto 0.00 10^3/uL (0.00-0.03); Immature Granulocytes Pct Auto 0.0 % (0.0-0.5); Lymphocytes Absolute Auto 0.9 10^3/uL (1.2-3.8); Mean Corpuscular HGB Conc 33.1 g/dL (29.9-35.2); Mean Corpuscular Hemoglobin 33.9 pg (26.7-34.0); Mean Corpuscular Volume 102.5 fL (81.0-99.0); Platelet Count 208 10^3/uL (150-450); Red Blood Count 2.80 10^6/uL (4.20-5.40); White Blood Count 4.8 10^3/uL (4.0-11.0)
[2025-03-06 11:57] LABS: Anion Gap 16.8; Blood Urea Nitrogen 33.0 mg/dL (7.0-18.0); Carbon Dioxide 21.0 mmol/L (21.0-32.0); Chloride 106 mmol/L (98-107); Glucose 92 mg/dL (74-106); Sodium 137 mmol/L (136-145)
[2025-03-06 11:58] LABS: Alanine Aminotransferase 23 U/L (14-59); Albumin Globulin Ratio 1.1; Albumin Level 3.7 g/dL (3.4-5.0); Alkaline Phosphatase 79 U/L (46-116); Aspartate Amino Transferase 17 U/L (15-37); Calcium 8.8 mg/dL (8.5-10.1); Estimated GFR (African America 49 (>=60 mL/min/1.73m^2); Estimated GFR (Non-African Ame 40 (>=60 mL/min/1.73m^2); Globulin 3.4 g/dL; Total Protein 7.1 g/dL (6.4-8.2)
[2025-03-06 11:59] LABS: Potassium 6.8 mmol/L (3.5-5.1)
--- NOTE | 2025-03-06 12:10 | ED.GENADUL1 ---
HPI HPI - General Adult General Chief complaint: Recheck/Abnormal Lab/Rx Stated complaint: ABNORMAL LAB VALUES Time Seen by Provider: 03/06/25 10:26 Source: patient Mode of arrival: walk-in Limitations: no limitations History of Present Illness HPI narrative: The patient is coming to the ER because she had a blood workup done outpatient by her primary care showed that she have an elevated potassium of 6.3. The patient denies any symptoms although she mentioned that for the last few weeks she has been having some tremors in her left hand and that is sometimes as she denies any other complaints No changes in medication and there is no change in her diet that is significant Related Data Home Medications ?Medication ?Instructions ?Recorded ?Confirmed alprazolam 0.25 mg tablet 1 mg PO DAILY PRN anxiety 01/18/23 03/06/25 aripiprazole 2 mg tablet 2 mg PO DAILY 01/18/23 03/06/25 lansoprazole 30 mg capsule,delayed 30 mg PO DAILY 01/18/23 03/06/25 release (Prevacid) citalopram 20 mg tablet 20 mg PO DAILY 03/06/25 03/06/25 diclofenac sodium 75 mg 75 mg PO Q12H PRN pain 03/06/25 03/06/25 tablet,delayed release pravastatin 20 mg tablet 20 mg PO DAILY 03/06/25 03/06/25 spironolactone 25 mg tablet 25 mg PO DAILY 03/06/25 03/06/25 Allergies Allergy/AdvReac Type Severity Reaction Status Date / Time adhesive tape Allergy Unknown Rash Verified 03/06/25 10:05 Opioid HPI Opioid Management Most Recent Opioid Data: Last Pain Scale 4 01/26/23, 13:10 Review of Systems ROS Status of ROS 10 or more systems reviewed and unremarkable except as noted in history and below [facility] Medical History (Updated 03/06/25 @ 15:57 by Ranjana Anguiano MD) Cataract (lens) fragments in eye following cataract surgery ?H59.029 - Cataract (lens) fragments in eye following cataract surgery, unspecified eye (ICD-10) Breast cancer ?C50.919 - Malignant neoplasm of unspecified site of unspecified female breast (ICD-10) Surgical History (Updated 01/18/23 @ 13:32 by Nancy Delgado) History of lumpectomy of right breast ?Z98.890 - Other specified postprocedural states (ICD-10) H/O: hysterectomy ?Z90.710 - Acquired absence of both cervix and uterus (ICD-10) History of appendectomy ?Z90.49 - Acquired absence of other specified parts of digestive tract (ICD-10) Hx of tonsillectomy ?Z90.89 - Acquired absence of other organs (ICD-10) H/O section ?Z98.891 - History of uterine scar from previous surgery (ICD-10) History of musculoskeletal system surgery ?Z98.890 - Other specified postprocedural states (ICD-10) Family History (Updated 01/18/23 @ 13:34 by Nancy Delgado) Other Family history of cancer Heart disease Kidney disease Social History (Updated 01/18/23 @ 14:01 by Nancy Delgado) Within the past year, how often did you have a drink containing alcohol: 2-4 times a month Smoking status: Never smoker Non-prescribed substance use: denies use Previous occupational history: retired Highest level of school completed/degree received: high school graduate Little interest or pleasure in doing things: not at all Feeling down, depressed, or hopeless: not at all Exam Narrative Exam Narrative: Nurses notes and vital signs reviewed and patient is not hypoxic. General: Well-appearing and in no apparent distress. Skin: Warm, dry, no pallor noted. No rash. Head: Normocephalic, atraumatic. Neck: Supple, non-tender. Cardiovascular: Regular Rate and Rhythm without murmur, gallop or rub. Respiratory: No accessory muscle use or respiratory distress. Lungs are clear to auscultation, no wheezing, rales or rhonchi Chest Wall: no tenderness Back: No midline thoracic or lumbar vertebral tenderness. No CVA tenderness Musculoskeletal: normal ROM, no calf or popliteal tenderness, no lower extremity edema/swelling GI: Abdomen is soft, non-distended. Normal bowel sounds. No masses appreciated. No tenderness to palpation. No rebound, guarding, or rigidity noted. Neurological: A&O x4. No cranial nerve dysfunction observed. No truncal ataxia. Moves all extremities. Sensation intact. Psychiatric: Cooperative and interactive. Normal mood and affect. Constitutional Vital Signs, click to edit/add: Last Vital Signs Temp 98.1 F 03/06/25 10:09 Pulse 66 03/06/25 14:20 Resp 38 H 03/06/25 14:20 BP 117/60 03/06/25 10:09 Pulse Ox 97 03/06/25 14:48 O2 Del Method Room Air 03/06/25 14:48 Course Vital Signs Vital signs: Vital Signs Temperature 98.1 F 03/06/25 10:09 Pulse Rate 72 03/06/25 10:09 Respiratory Rate 20 03/06/25 10:09 Blood Pressure 117/60 03/06/25 10:09 Temperature 98.1 F 03/06/25 10:09 Pulse Rate 66 03/06/25 14:20 Respiratory Rate 38 H 03/06/25 14:20 Blood Pressure 117/60 03/06/25 10:09 Pulse Oximetry 97 03/06/25 14:48 Oxygen Delivery Method Room Air 03/06/25 14:48 Medical Decision Making MDM Narrative Medical decision making narrative: The patient EKG showing sinus rhythm with a heart rate of [address] elevation or depression no T wave peaking or any signs of hyperkalemia The patient in the ER initially received IV fluids 1 L over 2 hours normal saline she also received calcium gluconate 1 g and she also received Kayexalate 30 g She also received dextrose 50% in addition to 5 units of regular insulin and the patient also received Lasix 20 mg IV In the ER the patient had a improvement of her potassium from 6.8-5.7 She has been taking lisinopril 20 mg and hydrochlorothiazide 25 mg and lisinopril definitely need to be stopped from her medication The patient's case was discussed with and he agreed on admitting the patient for hyperkalemia management Lab Data Labs: Lab Results 03/06/25 03/06/25 03/06/25 Range/Units 10:48 13:43 15:03 WBC 4.8 (4.0-11.0) 10^3/uL RBC 2.80 L (4.20-5.40) 10^6/uL Hgb 9.5 L (12.0-16.0) g/dL Hct 28.7 L (36.0-48.0) % MCV 102.5 H (81.0-99.0) fL MCH 33.9 (26.7-34.0) pg MCHC 33.1 (29.9-35.2) g/dL RDW 12.9 (11.0-15.0) % Plt Count 208 (150-450) 10^3/uL MPV 9.5 (9.5-13.5) fL Neut % (Auto) 70.8 (43.0-75.0) % Lymph % (Auto) 18.4 L (20.5-60.0) % Ceiba % (Auto) 7.7 (1.7-12.0) % Eos % (Auto) 2.5 (0.9-7.0) % Baso % (Auto) 0.6 (0.2-2.0) % Neut # (Auto) 3.4 (1.4-6.5) 10^3/uL Lymph # (Auto) 0.9 L (1.2-3.8) 10^3/uL Ceiba # (Auto) 0.4 (0.3-0.8) 10^3/uL Eos # (Auto) 0.1 (0.0-0.7) 10^3/uL Baso # (Auto) 0.0 (0.0-0.1) 10^3/uL Abs Immat Gran (auto) 0.00 (0.00-0.03) 10^3/uL Imm/Tot Granulo (auto) 0.0 (0.0-0.5) % Sodium 137 (136-145) mmol/L Potassium 6.8 H* 5.7 H (3.5-5.1) mmol/L Chloride 106 (98-107) mmol/L Carbon Dioxide 21.0 (21.0-32.0) mmol/L Anion Gap 16.8 BUN 33.0 H (7.0-18.0) mg/dL Creatinine 1.28 H (0.55-1.02) mg/dL Est GFR ( Amer) 49 L (>=60 mL/min/1.73m^2) Est GFR (Non-Af Amer) 40 L (>=60 mL/min/1.73m^2) BUN/Creatinine Ratio 25.8 Glucose 92 (74-106) mg/dL Calcium 8.8 (8.5-10.1) mg/dL Total Bilirubin 0.2 (0.2-1.0) mg/dL AST 17 (15-37) U/L ALT 23 (14-59) U/L Alkaline Phosphatase 79 (46-116) U/L Total Protein 7.1 (6.4-8.2) g/dL Albumin 3.7 (3.4-5.0) g/dL Globulin 3.4 g/dL Albumin/Globulin Ratio 1.1 POC Glucose 97 (74-106) mg/dL Discharge Plan Discharge Chief Complaint: Recheck/Abnormal Lab/Rx Clinical Impression: Hyperkalemia, ROSEY (acute kidney injury) Patient Disposition: Admitted As Inpatient Time of Disposition Decision: 15:56
[2025-03-06] MEDS: 0.9 % SODIUM CHLORIDE 1,000 ML 500 ML IV (12:22)
[2025-03-06] MEDS: INSULIN REGULAR, HUMAN (100 UNIT/ML) 10 ML MDV IV (12:40)
[2025-03-06] MEDS: DEXTROSE 50 %-WATER 25 GM/50 ML SYRINGE IV (12:40)
[2025-03-06] MEDS: SODIUM POLYSTYRENE SULFON 15 GM/60 ML ORAL.SUSP KAYEXALATE 30 GM PO (12:40)
[2025-03-06] MEDS: CALCIUM GLUC IN NACL, ISO-OSM 1 GM/50 ML PLAST..BAG IV (14:36)
[2025-03-06 15:37] LABS: Potassium 5.7 mmol/L (3.5-5.1)
[2025-03-06] MEDS: FUROSEMIDE 20 MG/2 ML VIAL IVP (15:56)
--- OUTSIDE RECORDS SUMMARY | 2025-03-06 17:11 | XMS_ITS | CCD ---
Author Organization [facility] Care Team Providers Care Slurry Blender Name Role Phone KENZIE ALMONTE Unavailable Unavailable [...] Consulting Unavailable MISC, DR CABRERA Attending Unavailable LONG KEY, DR JOSE RAFAEL Mendes Consulting Unavailable MISC, [...] Consulting Unavailable MD Claribel Pickett Attending Provider Davis, [facility] Primary Care Provider Claribel Pickett Attending Unavailable Claribel Pickett Admitting Unavailable [facility] Primary Care Unavailable Unavailable Primary Care Provider Unavailabl e Shammo IT HELP DESK ANALYST-RESPIRATORY CARE PROGRAM DIRECTOR, [place] Primary Care Provider Gustavo IT HELP DESK ANALYST-GUEST EXPERIENCE MANAGER, [facility] Primary Care Provider Unallocated Christel BOBBY Provider Primary Care Provi ct BALTAZAR CORONADO Attending Unavailable BALTAZAR CORONADO Attending Unavailable BOONE JHA Referring Unavailable SHAMMO, ADI Primary Care Unavailable KEN JONES Attending Unavailable SHAMMO, ADI Referring Unavailable [facility] Primary Care Unavailable TABITHA CANO Referring Unavailable [facility] Primary Care Unavailable Allergies Allergy Classification Reported Allergen(s) Allergy Type Date of Onset Reaction(s) Facility (5 sources) Hay Fever And Allergy Relief; Translations: [HAY FEVER AND ALLERGY RELIEF] Propensity to adverse reactions to drug 06-20-2014 [facility] (5 sources) Other; Translations: [OTHER] Propensity to adverse reactions 12-24-2015 [facility] Medications Current Medications Medication Drug [...] per tablet Indications: 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 Indications: lack in minerals, vitamin deficiency. 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) , Benign essential hypertension , Dyslipidemia [...] Coronary arteriosclerosis; Translations: [Atherosclerotic heart disease of picayune coronary artery without angina pectoris] Onset: 05-08-2024 [...] Fermin MD on 11/05/2024 8:50 AM Normal [facility] POCT EKGOrdered By: Marsha Layne on 05-08-2024 [facility] Activated partial thrombopla stin time (aPTT) in platelet poor plasma by coagulation aOrdered By: Claribel Pickett on 02-07-2024 aPTT Coag (PPP) [Time] 36.0 s 25.1-36.5 [facility] Comment on above: A hematocrit value g reater than 55% may lead to inaccurate results in coagulation testing. Patients having hematocrit values >55% require a special collection tube for coagulation studies. Please contact the laboratory at [phone] for redraw instructions. Automated basophil %Ordered By: Claribel Pickett on 02-07-2024 Basophils/100 WBC (Bld) 0.6 % Normal . [facility] Comment on above: Order Comment: STAT FOR CT BX Performed By: #### C BC, PP #### [facility] [address] Automated basophil countOrde red By: Claribel Pickett on 02-07-2024 Basophils (Bld) [#/Vol] 0.0 10*3/uL Normal 0.0-0.2 [facility] Comment on above: Order Comment: STAT FOR CT BX Result Comment: PERF ORMED BY: [place] [address] PATHOLOGIST MONEY ORDER CLERK KATRINA PATTERSON M.D. Performed By: #### C BC, PP #### [address] Automated blood monocyte cou ntOrdered By: Claribel Pickett on 02-07-2024 Monocytes (Bld) [#/Vol] 0.6 10*3/uL Normal 0.0-0.8 [facility] Comment on above: Order Comment: STAT FOR CT BX Performed By: #### C BC, PP #### [address] Automated eosinophil %Ordere d By: Claribel Nieves on 02-07-2024 Eosinophils/100 WBC (Bld) 2.5 % Normal . [facility] Comment on above: Order Comment: STAT FOR CT BX Performed By: #### C BC, PP #### [address] Automated eosinophil countOr dered By: Claribel Nieves on 02-07-2024 Eosinophils (Bld) [#/Vol] 0.2 10*3/uL Normal 0.0-0.45 [facility] Comment on above: Order Comment: STAT FOR CT BX Performed By: #### C BC, PP #### [address] Automated monocyte %Ordered By: Claribel Nieves on 02-07-2024 Monocytes/100 WBC (Bld) 7.6 % Normal . [facility] Comment on above: Order Comment: STAT FOR CT BX Performed By: #### C BC, PP #### [address] Automated neutrophil %Ordere d By: Claribel Nieves on 02-07-2024 Neutrophils/100 WBC (Bld) 72.6 % Normal . [facility] Comment on above: Order Comment: STAT FOR CT BX Performed By: #### C BC, PP #### [place] [address] guided bone marrow bx/asp iron 02-07-2024 CT guided bone marrow bx/aspir [facility] [place] [address] [place] [address] CT Scan Report Signed Patient: Elli Lindsey MR#: [id number] : 1945 Acct:[id number] Age/Sex: 78 / F ADM Date: 02/07/24 Loc: CT Room: Type: [facility] Attending Dr: Claribel Pickett MD Copies [...] local anesthesia. Utilizing CT guidance, an 11-gauge [employer] biopsy needle was advanced into the right [...] Adams Jr., D.O.02/07/2024 2:08 PM Dictation Location: [place] [address] Transcribed By: [facility] 02/07/24 1408 Dictated By: Sebastian Adams Jr, DO 02/07/24 1407 Signed By: 02/07/24 1408 Normal [facility] Coagulation Profileon 2023 aPTT Coag (Bld) [Time] 36.0 s Normal 25.1-36.5 [facility] Comment on above: Order Comment: STAT FOR CT BX Result Comment: A he matocrit value greater than 55% may lead to inaccurate results in coagulation testing. Patients having hematocrit values >55% require a special collection tube for coagulation studies. Please contact the laboratory at [phone] for redraw instructions. PERFORMED BY: [place] [address] PATHOLOGIST MONEY ORDER CLERK KATRINA PATTERSON M.D. Performed By: #### C BC, PP #### [address] Complete Blood Count Auto Di ffon 02-07-2024 Mean Corpuscular HGB Conc 34.1 g/dL Normal 32.0-35.0 [facility] Comment on above: Order Comment: STAT FOR CT BX Performed By: #### C BC, PP #### [address] NRBC% 0.0 /100{WBC} Normal 0-0.5 [facility] Comment on above: Order Comment: STAT FOR CT BX Performed By: #### C BC, PP #### [address] Erythrocyte distribution wid th [Ratio] by Automated countOrdered By: Claribel Pickett on 02-07-2024 Erythrocyte distribution width (RBC) [Ratio] 13.8 % Normal 11.9-15.3 [facility] Comment on above: Order Comment: STAT FOR CT BX Performed By: #### C BC, PP #### [address] Erythrocytes [#/volume] in B lood by Automated countOrdered By: Claribel Pickett on 02-07-2024 RBC (Bld) [#/Vol] 3.45 10*6/uL Low 3.60-5.00 [facility] Comment on above: Order Comment: STAT FOR CT BX Performed By: #### C BC, PP #### [address] Hematocrit [Volume Fraction] of Blood by Automated countOrdered By: Claribel Pickett on 02-07-2024 Hematocrit (Bld) [Volume fraction] 33.8 % Low 34.0-46.4 [facility] Comment on above: Order Comment: STAT FOR CT BX Performed By: #### C BC, PP #### [facility] [address] Hemoglobin [Mass/volume] in BloodOrdered By: Claribel Pickett on 02-07-2024 Hemoglobin (Bld) [Mass/Vol] 11.5 g/dL Low 11.8-15.4 [facility] Comment on above: Order Comment: STAT FOR CT BX Performed By: #### C BC, PP #### [facility] [address] [place] [address] INR in Platelet poor plasma by Coagulation assayOrdered By: Claribel Pickett on 02-07-2024 INR Coag (PPP) [Relative time] 1.0 {INR} Normal [facility] Comment on above: INR Therapeutic Rang [...] Performed By: #### C BC, PP #### [facility] [address] [place] [address] Leukocytes [#/volume] correc denita for nucleated erythrocytes in Blood by Automated counOrdered By: Claribel Pickett on 02-07-2024 WBC corrected for nucl RBC Auto (Bld) [#/Vol] 8.0 10*3/uL 3.8-11.6 [facility] Leukocytes [#/volume] in Blo od by Automated countOrdered By: Claribel Pickett on 02-07-2024 WBC (Bld) [#/Vol] 8.0 10*3/uL Normal 3.8-11.6 [facility] Comment on above: Order Comment: STAT FOR CT BX Performed By: #### C BC, PP #### [facility] [address] [place] [address] [place] Lymphocytes [#/volume] in Bl ood by Automated countOrdered By: Claribel Pickett on 02-07-2024 Lymphocytes (Bld) [#/Vol] 1.3 10*3/uL Normal 1.00-4.8 [facility] Comment on above: Order Comment: STAT FOR CT BX Performed By: #### C BC, PP #### [address] Lymphocytes/100 leukocytes i n Blood by Automated countOrdered By: Claribel Pickett on 02-07-2024 Lymphocytes/100 WBC (Bld) 16.7 % Normal . [facility] Comment on above: Order Comment: STAT FOR CT BX Performed By: #### C BC, PP #### [address] MCH [Entitic mass] by Automa denita countOrdered By: Claribel Pickett on 02-07-2024 MCH (RBC) [Entitic mass] 33.5 pg Normal 24.7-34.3 [facility] Comment on above: Order Comment: STAT FOR CT BX Performed By: #### C BC, PP #### [address] MCHC Auto (RBC) [Mass/Vol]Or dered By: Claribelvannessa Pickett on 02-07-2024 MCHC (RBC) [Mass/Vol] 34.1 g/dL 32.0-35.0 [facility] MCV [Entitic volume] by Auto mated countOrdered By: Claribel Pickett on 02-07-2024 MCV (RBC) [Entitic vol] 98.1 fL Normal 80-100 [facility] Comment on above: Order Comment: STAT FOR CT BX Performed By: #### C BC, PP #### [place] [address] [place] Neutrophils [#/volume] in Bl ood by Automated countOrdered By: Claribel Pickett on 02-07-2024 Neutrophils (Bld) [#/Vol] 5.8 10*3/uL Normal 1.8-7.7 [facility] Comment on above: Order Comment: STAT FOR CT BX Performed By: #### C BC, PP #### [address] Nucleated erythrocytes [Pres ence] in Blood by Automated countOrdered By: Claribel Pickett on 02-07-2024 Nucleated RBC Auto Ql (Bld) 0.0 /100{WBC} 0-0.5 [facility] Pathology Request for Lab Co rpon 02-07-2024 Pathology Request for Lab Samir Normal [facility] Comment on above: Order Comment: BM BI OPSY Result Comment: See report. Scanned copy available in EMR. PERFORMED BY: [place] [address] PATHOLOGIST MONEY ORDER CLERK KATRINA PATTERSON M.D. Performed By: #### P ATH TO [facility] #### [address] Platelet mean volume [Entiti c volume] in Blood by Automated countOrdered By: Claribel Pickett on 02-07-2024 Platelet mean volume (Bld) [Entitic vol] 7.2 fL Normal 6.3-10.7 [facility] Comment on above: Order Comment: STAT FOR CT BX Performed By: #### C BC, PP #### [address] Platelets [#/volume] in Bloo d by Automated countOrdered By: Claribel Pickett on 02-07-2024 Platelets (Bld) [#/Vol] 271 10*3/uL Normal 150-450 [facility] Comment on above: Order Comment: STAT FOR CT BX Performed By: #### C BC, PP #### [address] Prothrombin time (PT)Ordered By: Claribel Pickett on 02-07-2024 PT Coag (PPP) [Time] 11.8 s Normal 9.0-12.9 [facility] Comment on above: A hematocrit value g reater than 55% may lead to inaccurate results in coagulation testing. Patients having hematocrit values >55% require a special collection tube for coagulation studies. Please contact the laboratory at [phone] for redraw instructions. Order Comment: STAT FOR CT BX Result Comment: A he matocrit value greater than 55% may lead to inaccurate results in coagulation testing. Patients having hematocrit values >55% require a special collection tube for coagulation studies. Please contact the laboratory at [phone] for redraw instructions. Performed By: #### C BC, PP #### [facility] [address] [place] [address] XR KNEE RT 3 VWSon XR KNEE [...] Garcia MD on 01/26/2024 10:55 PM Normal [facility] US CAROTID ART BILon 05-26-2 023 US [...] by: JAMIR SANCHEZ Date: 2022-11-06 05:46 Normal [facility] BNPon 11-05-2022 Natriuretic peptide B (Bld) [Mass/Vol] 55.0 pg/mL Normal <=1,800.0 [facility] Comment on above: Performed By: #### H STROPN, CMP, BNP, MG #### [facility] [address] [address] [address] Linda Park ECHOCARDIO M/2D COMPLETEon 0 11-05-2022 ECHOCARDIO M/2D COMPLETE Patient: ELLI LINDSEY Exam Date: 11/05/2022 : 1945 Gender:F Ordering : ADI FIGUEROA Admission #: [id number] Family : Order #: [id number] CLICK HERE TO VIEW EXAM ECHOCARDIOGRAM REPORT [...] Lopez M.D. on 11/08/2022 at 15:17 Normal [facility] MAGNESIUMon 11-05-2022 Magnesium [Mass/Vol] 2.0 mg/dL Normal 1.8-2.4 [facility] Comment on above: Performed By: #### H STROPN, CMP, BNP, MG #### [facility] [address] [place] [address] Dr. Linda Park PROF 14(COMP METB)on 023 Albumin [Mass/Vol] 3.7 g/dL Normal 3.4-5.0 [facility] Comment on above: Performed By: #### H STROPN, CMP, BNP, MG #### [facility] [address] [place] [address] Dr. Linda Park Albumin/Globulin [Mass ratio] 1.1 {ratio} Normal [facility] Comment on above: Performed By: #### H STROPN, CMP, BNP, MG #### [facility] [address] [place] [address] Dr. Linda Park ALP [Catalytic activity/Vol] 84 U/L Normal 46-116 [facility] Comment on above: Performed By: #### H STROPN, CMP, BNP, MG #### [facility] [address] [place] [address] Dr. Linda Park ALT [Catalytic activity/Vol] 17 U/L Normal 14-59 [facility] Comment on above: Performed By: #### H STROPN, CMP, BNP, MG #### [facility] [address] [place] [address] [address] Linda Park Anion gap [Moles/Vol] 10.8 mmol/L Normal [facility] Comment on above: Performed By: #### H STROPN, CMP, BNP, MG #### [facility] [address] [place] [address] [address] Linda Park AST [Catalytic activity/Vol] 15 U/L Normal 15-37 [facility] Comment on above: Performed By: #### H STROPN, CMP, BNP, MG #### [facility] [address] [place] [address] [address] Linda Park Bilirubin [Mass/Vol] 0.2 mg/dL Normal 0.2-1.0 [facility] Comment on above: Performed By: #### H STROPN, CMP, BNP, MG #### [facility] [address] [place] [address] Dr. Linda Park Calcium [Mass/Vol] 9.1 mg/dL Normal 8.5-10.1 [facility] Comment on above: Performed By: #### H STROPN, CMP, BNP, MG #### [facility] [address] [place] [address] [address] Linda Park Chloride [Moles/Vol] 104 mmol/L Normal 98-107 [facility] Comment on above: Performed By: #### H STROPN, CMP, BNP, MG #### [facility] [address] [place] [address] [address] Linda Park CO2 [Moles/Vol] 30.8 mmol/L Normal 21.0-32.0 [facility] Comment on above: Performed By: #### H STROPN, CMP, BNP, MG #### [facility] [address] [place] [address] [address] Linda Park Creatinine [Mass/Vol] 0.94 mg/dL Normal 0.55-1.02 [facility] Comment on above: Performed By: #### H STROPN, CMP, BNP, MG #### [facility] [address] [place] [address] [address] Linda Park EGFR-AF EQUATORIAL GUINEAN >60 Normal >=60 [facility] Comment on above: Performed By: #### H STROPN, CMP, BNP, MG #### [facility] [address] [place] [address] [address] Linda Park EGFR-NON AF EQUATORIAL GUINEAN 58 mL/min/1.73m2 Critically low >=60 [facility] Comment on above: Performed By: #### H STROPN, CMP, BNP, MG #### [facility] [address] [place] [address] [address] Linda Park Globulin (S) [Mass/Vol] 3.5 g/dL Normal [facility] Comment on above: Performed By: #### H STROPN, CMP, BNP, MG #### [facility] [address] [place] [address] Dr. Linda Park Glucose [Mass/Vol] 78 mg/dL Normal 74-106 [facility] Comment on above: Performed By: #### H STROPN, CMP, BNP, MG #### [facility] [address] [place] [address] [address] Linda Park Potassium [Moles/Vol] 4.6 mmol/L Normal 3.5-5.1 [facility] Comment on above: Performed By: #### H STROPN, CMP, BNP, MG #### [facility] [address] [place] [address] Dr. Linda Park Protein [Mass/Vol] 7.2 g/dL Normal 6.4-8.2 [facility] Comment on above: Performed By: #### H STROPN, CMP, BNP, MG #### [facility] [address] [place] [address] Dr. Linda Park Sodium [Moles/Vol] 141 mmol/L Normal 136-145 [facility] Comment on above: Performed By: #### H STROPN, CMP, BNP, MG #### [facility] [address] [place] [address] Dr. Linda Park Urea nitrogen [Mass/Vol] 17.0 mg/dL Normal 7.0-18.0 [facility] Comment on above: Performed By: #### H STROPN, CMP, BNP, MG #### [facility] [address] [place], [place] [address] Dr. Linda Park Urea nitrogen/Creatinin e [Mass ratio] 18.1 mg/mg Normal [facility] Comment on above: Performed By: #### H STROPN, CMP, BNP, MG #### [facility] [address] [place] [address] [address] Linda Park TROPONIN, HIGH SENSITIVITYon 11-05-2022 HSTROP 9.2 pg/mL Normal 4.0-51.3 [facility] Comment on above: Result Comment: CUT- OFF POINTS HAVE BEEN ESTABLISHED BASED ON THE FOURTH UNIVERSAL DEFINITIONS OF MYOCARDIAL INFARCTION. THE UPPER REFERENCE LIMIT (URL) OF TROPONIN, DEFINED THE 99TH PERCENTILE OF cTnI DISTRIBUTION IN A REFERENCE POPULATION, HAS BEEN CONFIRMED THE DECISION THRESHOLD FOR ND DIAGNOSIS. Performed By: #### H STROPN, CMP, BNP, MG #### [facility] [address] [place] [address] [address] Linda Park XR CHEST 2 Von [...] #### [facility] [address] [place] [address] [address] Linda Park Hemoglobin (Bld) [Mass/Vol] 8.8 g/dL Critically low 12.0-16.0 [facility] Comment on above: Performed By: #### H STROPN, CMP, BNP, MG #### [facility] [address] [place] [address] [address] Linda Park MCH (RBC) [Entitic mass] 29.0 pg Normal 26.7-34.0 [facility] Comment on above: Performed By: #### H STROPN, CMP, BNP, MG #### [facility] [address] [place] [address] [address] Linda Park MCHC (RBC) [Mass/Vol] 31.7 g/dL Normal 29.9-35.2 [facility] Comment on above: Performed By: #### H STROPN, CMP, BNP, MG #### [facility] [address] [place] [address] [address] Linda Park MCV (RBC) [Entitic vol] 91.7 fL Normal 81.0-99.0 [facility] Comment on above: Performed By: #### H STROPN, CMP, BNP, MG #### [facility] [address] [place] [address] Dr. Linda Park PLT 217 103/ul Normal 150-450 [facility] Comment on above: Performed By: #### H STROPN, CMP, BNP, MG #### [facility] [address] [place] [address] [address] Linda Park RBC 3.03 106/ul Critically low 4.20-5.40 [facility] Comment on above: Performed By: #### H STROPN, CMP, BNP, MG #### [facility] [address] [place] [address] Dr. Linda Pakr WBC 6.4 103/ul Normal 4.0-11.0 [facility] Comment on above: Performed By: #### H STROPN, CMP, BNP, MG #### [facility] [address] [place] [address] Dr. Linda Park LIPID PROFILEon 08-24-2022 CHOL-HDL RATIO NORM SEE BELOW Normal [facility] Comment on above: Result Comment: 3.3 - 4.4 LOW RISK 4.4 - 7.1 AVERAGE RISK 7.1 - 11.0 MODERATE RISK >11.0 HIGH RISK Performed By: #### H STROPN, CMP, BNP, MG #### [facility] [address] [place] [address] [address] Linda Park Cholesterol [Mass/Vol] 166 mg/dL Normal <=200 [facility] Comment on above: Performed By: #### H STROPN, CMP, BNP, MG #### [facility] [address] [place] [address] [address] Linda Park Cholesterol in HDL [Mass/Vol] 54 mg/dL Normal 40-60 [facility] Comment on above: Performed By: #### H STROPN, CMP, BNP, MG #### [facility] [address] [place] [address] [address] Linda Park Cholesterol in LDL [Mass/Vol] 70.8 mg/dL Normal [facility] Comment on above: Performed By: #### H STROPN, CMP, BNP, MG #### [facility] [address] [place] [address] [address] Linda Park Cholesterol.total/ Cholesterol in HDL [Mass ratio] 3.1 {ratio} Normal [facility] Comment on above: Performed By: #### H STROPN, CMP, BNP, MG #### [facility] [address] [address] [address] Linda Park HDL NORMAL > or = 60 mg/dl - LO W CARDIOVASCULAR RISK <40 mg/dl - HIGH CARDIOVASCULAR RISK Normal [facility] Comment on above: Performed By: #### H STROPN, CMP, BNP, MG #### [facility] [address] [place] [address] [address] Linda Park LDL CALC NORMAL SEE BELOW Normal [facility] Comment on above: Result Comment: <100 mg/dl OPTIMAL 100 - 129 mg/dl NEAR OR ABOVE OPTIMAL 130 - 159 mg/dl BORDERLINE HIGH 160 - 189 mg/dl HIGH >190 mg/dl VERY HIGH Performed By: #### H STROPN, CMP, BNP, MG #### [facility] [address] [address] [address] Linda Park Triglyceride [Mass/Vol] 206 mg/dL Critically high <=150 [facility] Comment on above: Performed By: #### H STROPN, CMP, BNP, MG #### [facility] [address] [address] [address] Linda Park VLDL CALC 41.2 mg/dL Normal [facility] Comment on above: Performed By: #### H STROPN, CMP, BNP, MG #### [facility] [address] [address] [address] Linda Park PROF 14(COMP METB)on 023 Albumin [Mass/Vol] 3.7 g/dL Normal 3.4-5.0 [facility] Comment on above: Performed By: #### H STROPN, CMP, BNP, MG #### [facility] [address] [address] [address] Linda Park Albumin/Globulin [Mass ratio] 1.1 {ratio} Normal [facility] Comment on above: Performed By: #### H STROPN, CMP, BNP, MG #### [facility] [address] [address] [address] Linda Park ALP [Catalytic activity/Vol] 84 U/L Normal 46-116 [facility] Comment on above: Performed By: #### H STROPN, CMP, BNP, MG #### [facility] [address] [address] [address] Linda Park ALT [Catalytic activity/Vol] 17 U/L Normal 14-59 [facility] Comment on above: Performed By: #### H STROPN, CMP, BNP, MG #### [facility] [address] [address] [address] Linda Park Anion gap [Moles/Vol] 11.8 mmol/L Normal [facility] [facility] Comment on above: Performed By: #### H STROPN, CMP, BNP, MG #### [facility] [address] [address] [address] Linda Park AST [Catalytic activity/Vol] 19 U/L Normal 15-37 [facility] Comment on above: Performed By: #### H STROPN, CMP, BNP, MG #### [facility] [address] [place] [address] Dr. Linda Park Bilirubin [Mass/Vol] 0.4 mg/dL Normal 0.2-1.0 [facility] Comment on above: Performed By: #### H STROPN, CMP, BNP, MG #### [facility] [address] [address] [address] Linda Park Calcium [Mass/Vol] 9.5 mg/dL Normal 8.5-10.1 [facility] Comment on above: Performed By: #### H STROPN, CMP, BNP, MG #### [facility] [address] [place] [address] Dr. Linda Park Chloride [Moles/Vol] 104 mmol/L Normal 98-107 [facility] Comment on above: Performed By: #### H STROPN, CMP, BNP, MG #### [facility] [address] [place] [address] Dr. Linda Park CO2 [Moles/Vol] 28.6 mmol/L Normal 21.0-32.0 [facility] Comment on above: Performed By: #### H STROPN, CMP, BNP, MG #### [facility] [address] [place] [address] Dr. Linda Park Creatinine [Mass/Vol] 0.87 mg/dL Normal 0.55-1.02 [facility] Comment on above: Performed By: #### H STROPN, CMP, BNP, MG #### [facility] [address] [place] [address] Dr. Linda Park EGFR-AF EQUATORIAL GUINEAN >60 Normal >=60 [facility] Comment on above: Performed By: #### H STROPN, CMP, BNP, MG #### [facility] [address] [place] [address] Dr. Linda Park EGFR-NON AF EQUATORIAL GUINEAN >60 Normal >=60 [facility] Comment on above: Performed By: #### H STROPN, CMP, BNP, MG #### [facility] [address] [address] [address] Linda Park Globulin (S) [Mass/Vol] 3.3 g/dL Normal [facility] Comment on above: Performed By: #### H STROPN, CMP, BNP, MG #### [facility] [address] [address] [address] Linda Park Glucose [Mass/Vol] 95 mg/dL Normal 74-106 [facility] Comment on above: Performed By: #### H STROPN, CMP, BNP, MG #### [facility] [address] [place] [address] Dr. Linda Park Potassium [Moles/Vol] 4.4 mmol/L Normal 3.5-5.1 [facility] Comment on above: Performed By: #### H STROPN, CMP, BNP, MG #### [facility] [address] [place] [address] Dr. Linda Park Protein [Mass/Vol] 7.0 g/dL Normal 6.4-8.2 [facility] Comment on above: Performed By: #### H STROPN, CMP, BNP, MG #### [facility] [address] [place] [address] Dr. Linda Park Sodium [Moles/Vol] 140 mmol/L Normal 136-145 [facility] Comment on above: Performed By: #### H STROPN, CMP, BNP, MG #### [facility] [address] [place] [address] Dr. Linda Park Urea nitrogen [Mass/Vol] 14.0 mg/dL Normal 7.0-18.0 [facility] Comment on above: Performed By: #### H STROPN, CMP, BNP, MG #### [facility] [address] [place] [address] Dr. Linda Park Urea nitrogen/Creatinin e [Mass ratio] 16.1 mg/mg Normal [facility] Comment on above: Performed By: #### H STROPN, CMP, BNP, MG #### [facility] [address] [address] [address] Linda Park XR LSPINE MIN 4 [...] Date: 2022-04-30 06:55 Normal [facility] MAMM SCREEN 3D GONZALEZ CADon 03-05-2022 MG MAMM SCREEN 3D GONZALEZ CAD Patient: ELLI LINDSEY Exam Date: 03/05/2022 : 1945 Gender:F Ordering : DR DOCTOR ZAVALA Admission #: [id number] Family : DR. SAMINA GEE M.D. Order #: [id number] CLICK HERE TO VIEW EXAM RADIOLOGY REPORT [...] Arndt MD on 03/05/2022 at 12:09 Normal [facility] Basic Metabolic Profon 09-30 (cont.) Normal [facility] Comment on above: Result Comment: Aver age GFR for 70 or more years old: 75 mL/min/1.73sq mChronic Kidney Disease: <60 mL/min/1.73sq mKidney failure: <15 mL/min/1.73sq meGFR calculated using average adult body mass. Additional eGFR calculator available at:http://[email or web address].Bee Ware/multiple_crcl_2012.htmPerformed at [facility] [address] [place] [address] Performed By: #### C DP, ALCB, BMP, TSH ####[address] [address] Anion gap 13 mmol/L Normal 9-17 [facility] Comment on above: Performed By: #### C DP, ALCB, BMP, TSH ####[address] [address] BUN/CRE Ratio 26 High 9-20 [facility] Comment on above: Performed By: #### C DP, ALCB, BMP, TSH ####[address] [address] Calcium 9.4 mg/dL Normal 8.6-10.4 [facility] Comment on above: Performed By: #### C DP, ALCB, BMP, TSH ####[place] [address] Chloride 101 mmol/L Normal 98-107 [facility] Comment on above: Performed By: #### C DP, ALCB, BMP, TSH ####[facility] [address] CO2 25 mmol/L Normal 20-31 [facility] Comment on above: Performed By: #### C DP, ALCB, BMP, TSH ####[address] [address] Creatinine 0.66 mg/dL Normal 0.50-0.90 [facility] Comment on above: Performed By: #### C DP, ALCB, BMP, TSH ####[address] [address] eGFR (non-black) mL/min/{1.73_m2} Normal >60 [facility] Comment on above: Performed By: #### C DP, ALCB, BMP, TSH ####[address] [address] Glucose mass conc 92 mg/dL Normal 70-99 [facility] Comment on above: Performed By: #### C DP, ALCB, BMP, TSH ####[address] [address] Potassium molar conc 4.1 mmol/L Normal 3.7-5.3 [facility] Comment on above: Performed By: #### C DP, ALCB, BMP, TSH ####[address] [address] Sodium 139 mmol/L Normal 135-144 [facility] Comment on above: Performed By: #### C DP, ALCB, BMP, TSH ####[address] [address] Urea nitrogen 17 mg/dL Normal 8-23 [facility] Comment on above: Performed By: #### C DP, ALCB, BMP, TSH ####[address] [address] Staging: NOT REPORTED Normal [facility] Comment on above: Performed By: #### C DP, ALCB, BMP, TSH ####[address] [address] CBC with Diffon 09-30-2017 Abs. Basophil 0.00 k/uL Normal 0.0-0.2 [facility] Comment on above: Result Comment: Perf ormed at [facility] [address] [place] [address] Performed By: #### C DP, ALCB, BMP, TSH ####[place] [address] Abs.Neutrophil (Seg) 4.30 k/uL Normal 1.8-7.7 [facility] Comment on above: Performed By: #### C DP, ALCB, BMP, TSH ####[address] [address] Basophils/100 WBC Auto (Bld) 1 % Normal 0-2 [facility] Comment on above: Performed By: #### C DP, ALCB, BMP, TSH ####[address] [address] Eosinophils 0.10 10*3/uL Normal 0.0-0.4 [facility] Comment on above: Performed By: #### C DP, ALCB, BMP, TSH ####[place] [address] Eosinophils/100 leukocytes 3 % Normal 1-4 [facility] Comment on above: Performed By: #### C DP, ALCB, BMP, TSH ####[facility] [place] [address] Erythrocyte distribution width Auto Ratio (RBC) 13.6 % Normal 11.5-14.5 [facility] Comment on above: Performed By: #### C DP, ALCB, BMP, TSH ####[address] [address] Erythrocytes (RBC) 3.66 10*6/uL Low 4.0-5.2 [facility] Comment on above: Performed By: #### C DP, ALCB, BMP, TSH ####[facility] [place] [address] Hematocrit (HCT) 35.9 % Low 36-46 [facility] Comment on above: Performed By: #### C DP, ALCB, BMP, TSH ####[address] [address] Hemoglobin mass conc (Bld) 12.1 g/dL Normal 12.0-16.0 [facility] Comment on above: Performed By: #### C DP, ALCB, BMP, TSH ####[address] [address] Lymphocytes 1.00 10*3/uL Normal 1.0-4.8 [facility] Comment on above: Performed By: #### C DP, ALCB, BMP, TSH ####[address] [address] Lymphocytes/100 leukocytes 17 % Low 24-44 [facility] Comment on above: Performed By: #### C DP, ALCB, BMP, TSH ####[address] [id number] MCH 33.1 pg Normal 26-34 [facility] Comment on above: Performed By: #### C DP, ALCB, BMP, TSH ####[place] [address] MCHC mass conc (RBC) 33.7 g/dL Normal 31-37 [facility] Comment on above: Performed By: #### C DP, ALCB, BMP, TSH ####[address] [address] MCV 98.1 fL Normal 80-100 [facility] Comment on above: Performed By: #### C DP, ALCB, BMP, TSH ####[place] [address] Monocytes 0.30 10*3/uL Normal 0.2-0.8 [facility] Comment on above: Performed By: #### C DP, ALCB, BMP, TSH ####[place] [address] Monocytes/100 leukocytes 6 % Normal 1-7 [facility] Comment on above: Performed By: #### C DP, ALCB, BMP, TSH ####[place] [address] Neutrophil (Seg) 73 % High 36-66 [facility] Comment on above: Performed By: #### C DP, ALCB, BMP, TSH ####[place] [address] Platelet mean volume (PMV) 7.9 fL Normal 6.0-12.0 [facility] Comment on above: Performed By: #### C DP, ALCB, BMP, TSH ####[place] [address] Platelets 206 10*3/uL Normal 130-400 [facility] Comment on above: Performed By: #### C DP, ALCB, BMP, TSH ####[address] [address] WBC (Leukocytes) 5.8 10*3/uL Normal 3.5-11.0 [facility] Comment on above: Performed By: #### C DP, ALCB, BMP, TSH ####[address] [address] Auto Diff Performed NOT REPORTED Normal [facility] Comment on above: Performed By: #### C DP, ALCB, BMP, TSH ####[address] [address] Erythrocyte morphology NOT REPORTED Normal [facility] Comment on above: Performed By: #### C DP, ALCB, BMP, TSH ####[address] [address] Erythrocytes (RBC) NOT REPORTED Normal [facility] Comment on above: Performed By: #### C DP, ALCB, BMP, TSH ####[address] [address] Granulocytes/100 WBC (Bld) NOT REPORTED Normal 0.00-0.30 [facility] Comment on above: Performed By: #### C DP, ALCB, BMP, TSH ####[address] [address] Immature granulocytes #/vol (Bld) NOT REPORTED Normal 0 [facility] Comment on above: Performed By: #### C DP, ALCB, BMP, TSH ####[address] [address] Platelets NOT REPORTED Normal [facility] Comment on above: Performed By: #### C DP, ALCB, BMP, TSH ####[address] [address] WBC Morphology NOT REPORTED Normal [facility] Comment on above: Performed By: #### C DP, ALCB, BMP, TSH ####[address] [address] Drug Scr, Abuse, Uron 2017 Amphetamine(s),Ur Negative Normal [facility] Comment on above: Result Comment: (Pos itive cutoff 1000 ng/mL) Performed By: #### D AU ####[address] [address] Barbiturate(s),Ur Negative Normal [facility] Comment on above: Result Comment: (Pos itive cutoff 200 ng/mL) Performed By: #### D AU ####[address] [address] Base excess Negative Normal NEG [facility] Comment on above: Result Comment: (Pos itive cutoff 300 ng/mL) Performed By: #### D AU ####[address] [address] Benzodiazepine(s) Positive Abnormal [facility] Comment on above: Result Comment: (Pos itive cutoff 200 ng/mL) Performed By: #### D AU ####[address] [address] Cannabinoid(s),Ur Negative Normal [facility] Comment on above: Result Comment: (Pos itive cutoff 50 ng/mL) Performed By: #### D AU ####[address] [address] Interpretive Info Assay provides medic al screening only. The absence of expected drug(s) and/or Normal [facility] Comment on above: Result Comment: meta bolite(s) may indicate diluted or adulterated urine, limitations of testing or timing of collection.Testing for legal purposes should be confirmed by another method. To request confirmation of test result, please call the lab within 7 days of sample submission.Performed at [facility] [address] [place] [address] Performed By: #### D AU ####[address] [address] Opiate(s), Ur Negative Normal NEG [facility] Comment on above: Result Comment: (Pos itive cutoff 300 ng/mL) Performed By: #### D AU ####[address] [address] Oxycodone, Urine Positive Abnormal NEG [facility] Comment on above: Result Comment: (Pos itive cutoff 100 ng/mL) Performed By: #### D AU ####[address] [address] Phencyclidine, Ur Negative Normal [facility] Comment on above: Result Comment: (Pos itive cutoff 25 ng/mL) Performed By: #### D AU ####[address] [address] Urine, methadone presence Negative Normal NEG [facility] Comment on above: Result Comment: (Pos itive cutoff 300 ng/mL) Performed By: #### D AU ####[address] [address] Buprenorphrine, Ur NOT REPORTED Normal NEG [facility] Comment on above: Performed By: #### D AU ####[address] [address] MDMA, Urine NOT REPORTED Normal NEG [facility] Comment on above: Performed By: #### D AU ####[address] [address] Methamphetamine, Ur NOT REPORTED Normal NEG [facility] Comment on above: Performed By: #### D AU ####[address] [address] Propoxyphene,Urine NOT REPORTED Normal NEG [facility] Comment on above: Performed By: #### D AU ####[address] [address] Urine, tricyclic antidepressants NOT REPORTED Normal NEG [facility] Comment on above: Performed By: #### D AU ####[address] [address] Ethanol Alcoholon 09-30-2017 Ethanol mg/dL Normal <10 [facility] Comment on above: Performed By: #### C DP, ALCB, BMP, TSH ####[address] [address] Ethanol percent <0.010 Normal [facility] Comment on above: Result Comment: Perf ormed at [address] [place] [address] Performed By: #### C DP, ALCB, BMP, TSH ####[address] [address] Thyroid Stim. Horm.on 2017 Thyroid stimulating hormone (TSH) 0.87 m[IU]/L Normal 0.30-5.00 [facility] Comment on above: Result Comment: Perf ormed at [facility] [address] [place] [address] Performed By: #### C DP, ALCB, BMP, TSH ####[facility] [place] [address] [facility] DIGITAL [facility]AGNO[facility] BILAT ERALon [...] sent to the patient regarding the results.[employer] recommends annual mammograms for women 40years and older.Interpreted by:TIM Robinigned by:Elli Aparicio MD04/27/17CC Recipients:Mark Francois MD - In [place]ander [place]ee - FaxFinal result Normal [facility] Vital Signs Date Time Vital Sign Value Performing Clinician Facility 09-14-2024 11:31-0400 Body height 139.7 cm Baltazar Coronado DPM Work Phone: [facility] 09-14-2024 11:31-0400 Respiratory rate 16 /min Baltazar Cliff DPM Work Phone: [facility] 07-06-2024 11:21-0500 Body height 139.7 cm Baltazar Coronado DPM Work Phone: [facility] 07-06-2024 11:21-0500 Respiratory rate 16 /min Baltazar Coronado DPM Work Phone: [facility] 05-08-2024 12:37-0500 Body height 152.4 cm Ken Jones MD Work Phone: [facility] 05-08-2024 12:37-0500 Body mass index (BMI) [Ratio] 36.29 kg/m2 Ken Jones MD Work Phone: [facility] 05-08-2024 12:37-0500 Body weight 84.28 kg Ken Jones MD Work Phone: [facility] 05-08-2024 12:37-0500 Diastolic blood pressure 98 mm[Hg] Ken Jones MD Work Phone: [facility] 05-08-2024 12:37-0500 Heart rate 73 /min Ken Jones MD Work Phone: [facility] 05-08-2024 12:37-0500 SaO2% (BldA) [Mass fraction] 97 % Ken Jones MD Work Phone: [facility] 05-08-2024 12:37-0500 Systolic blood pressure 144 mm[Hg] Ken Jones MD Work Phone: [facility] 02-07-2024 11:10-0400 Diastolic blood pressure 66 mm[Hg] CAROLINE Chen Work Phone: [facility] 02-07-2024 11:10-0400 Heart rate 65 /min CAROLINE Chen Work Phone: [facility] 02-07-2024 11:10-0400 Respiratory rate 16 /min IT HELP DESK ANALYSTJose Chen Work Phone: [facility] 02-07-2024 11:10-0400 SaO2% (BldA) [Mass fraction] 98 % IT HELP DESK ANALYSTJose Chen Work Phone: [facility] 02-07-2024 11:10-0400 Systolic blood pressure 127 mm[Hg] IT HELP DESK ANALYSTJose Chen Work Phone: [facility] 02-07-2024 09:190400 Body height 154.94 cm IT HELP DESK ANALYSTJose Chen Work Phone: [facility] 02-07-2024 09:0400 Body weight 81.19 kg IT HELP DESK ANALYSTJose Chen Work Phone: [facility] Encounters Encounter Date Encounter Type Care Provider Facility Start: 11-01-2024 End: 11-01-2024 ambulatory [facility] Start: 09-14-2024 End: 09-14-2024 Bamboo flowsheet [...] on above: 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); Benign essential hypertension; Dyslipidemia; Dyspnea on exertion Start: 05-08-2024 End: 05-08-2024 [facility] Start: 05-05-2024 End: 05-05-2024 Telephone encounter Marsha Layne CMA [facility] Start: 04-12-2024 End: 04-26-2024 Telephone encounter Kimberlee Garza [facility] Work Phone: [facility] Comment on above: Hearing Aid Problem Start: 03-30-2024 End: 03-31-2024 Refill Denise Araiza RN [facility] Comment on above: Med Refill Start: 02-07-2024 End: 02-07-2024 Admission to same day surgery center CAROLINE Chen Work Phone: [facility] [place] Work Phone: Start: 02-07-2024 End: 02-07-2024 ambulatory CAROLINE Chen Work Phone: [facility] Work Phone: Start: 01-26-2024 End: 01-26-2024 ambulatory BOONE JHA [facility] Start: 07-12-2023 Orders Only Shukri Jeong MD Work Phone: [facility] Start: 11-05-2022 End: 11-06-2022 ambulatory ADI SHAMMO Facility:[facility] Start: 09-24-2022 End: 09-25-2022 ambulatory RCJACOB ALECKARIEPATRICIO . Facility:[facility] Start: 08-25-2022 Encounter for genera l adult medical examination without abnormal findings ADICARLOS FIGUEROA [facility] Start: [...] 09-30-2017 Emergency department patient visit MEGHANN GEE [facility] Start: 07-20-2017 Patient encounter procedure Shukri Jeong MD Work Phone: [facility] Start: 04-27-2017 End: 04-28-2017 Ambulatory KENZIE ALMONTE [facility] Procedures Date Procedure Procedure Detail Performing Clinician [...] Td Vaccines (2 - Td or Tdap) [facility] Start: 05-08-2025 Tobacco Screening Tobacco Screening [facility] Start: 11-23-2024 End: 11-23-2024 Patient encounter procedure 11/23/2024 1:00 PM EDT Procedure Visit [facility] [address] [facility] [address] [place] [address] Baltazar Coronado DPM [address] [facility] [address] [place] [address] [facility] Start: 09-14-2024 End: 09-14-2024 Patient encounter procedure [facility] Comment on above: 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) Benign essential hypertension Dyslipidemia Dyspnea on exertion Expected: 05/15/2024, Expires: 05/08/2025 [facility] Work Phone: Comment on above: Expected: 05/15/2024 , Expires: 05/08/2025 Start: 05-09-2024 End: 05-09-2024 Patient encounter procedure 05/09/2024 10:00 AM EST Office Visit [facility] [address] [place] [id number] Ken Jones MD [address] [place] [address] [facility] Start: 05-08-2024 End: 05-08-2024 Patient encounter procedure 05/08/2024 12:45 PM EST Office Visit [facility] [address] [place] [phone] Ken Jones MD [address] [place] [address] [facility] Start: 03-02-2024 Adult BMI Screening Adult BMI Screen ing [facility] Start: 03-02-2024 Tobacco Screening Tobacco Screening [facility] Start: 02-13-2024 COVID-19 Vaccine ( season) COVID-19 Vaccine () [facility] Start: 02-13-2024 COVID-19 Vaccine ( season) COVID-19 Vaccine () [facility] Start: 02-13-2024 Influenza vaccination Influenza Vacc ine [facility] Start: 02-07-2024 [facility] Start: 02-07-2024 Bone marrow sampling [facility] Start: 06-01-2023 Adult BMI Follow Up Plan Adult BMI Follow Up Plan [facility] Start: 02-12-2023 COVID-19 Vaccine ( season) COVID-19 Vaccine () [facility] Start: 02-12-2023 Influenza vaccination Influenza Vacc ine [facility] Start: 08-18-2022 Depression Screening Depression Scre ening [facility] Start: 02-18-2022 Fall Risk Screening Fall Risk Screen ing [facility] Start: 02-18-2022 Medicare Annual Well ness Visit Medicare Annual Wellness Visit [facility] Start: 2010 Fall Risk Screening Fall Risk Screen ing [facility] End: 03-30-2025 Basic metabolic 2000 panel - Serum or Plasma Basic Metabolic Panel Lab Routine 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 pectoris 1 Occurrences starting 03/31/2024 until 03/30/2025 [facility] Work Phone: Comment on above: 1 Occurrences starti ng 03/31/2024 until 03/30/2025 End: 03-30-2025 Magnesium [Mass/volume] in Serum or Plasma Magnesium Lab Routine 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 pectoris 1 Occurrences starting 03/31/2024 until 03/30/2025 [facility] Comment on above: 1 Occurrences starti ng 03/31/2024 until 03/30/2025 Patient Education [facility] Bone Marrow Aspiration or Biopsy Know your Meds [facility] Work Phone: Immunizations Immunization Date Immunization Notes Care Provider Fa cility 03-04-2023 influenza virus vacc ine, unspecified formulation Denise Araiza RN [facility] 03-04-2022 influenza, injectabl e, quadrivalent, preservative free Shukri Jeong MD Work Phone: [facility] 03-04-2022 influenza virus vacc ine, unspecified formulation Shukri Jeong MD Work Phone: [facility] 04-04-2021 influenza, injectabl e, quadrivalent, contains preservative Shukri Jeong MD Work Phone: [facility] 03-13-2021 COVID-19, mRNA, LNP- S, PF, 30mcg/0.3mL Dose Shukri Jeong MD Work Phone: [facility] 08-13-2020 COVID-19, mRNA, LNP- S, PF, 30mcg/0.3mL Dose Shukri Jeong MD Work Phone: [facility] 07-22-2020 COVID-19, mRNA, LNP- S, PF, 30mcg/0.3mL Dose Shukri Jeong MD Work Phone: [facility] 02-06-2020 influenza, injectabl e, quadrivalent, preservative free Shukri Jeong MD Work Phone: [facility] 04-06-2019 zoster vaccine recombinant Shukri Jeong MD Work Phone: [facility] 03-09-2019 influenza, high dose seasonal, preservative-free Shukri Jeong MD Work Phone: [facility] 09-01-2018 zoster vaccine recombinant Shukri Jeong MD Work Phone: [facility] 02-17-2018 Seasonal trivalent influenza vaccine, adjuvanted, preservative free Shukri Jeong MD Work Phone: [facility] 08-26-2017 pneumococcal polysaccharide vaccine, 23 valent Shukri Jeong MD Work Phone: [facility] 02-10-2017 influenza virus vacc ine, unspecified formulation Shukri Jeong MD Work Phone: [facility] 02-20-2016 influenza, seasonal, injectable, preservative free Shukri Jeogn MD Work Phone: [facility] 10-09-2015 pneumococcal conjuga te vaccine, 13 valent Shukri Jeong MD Work Phone: [facility] 03-08-2015 Influenza TIV (IM) Shukri soto MD Work Phone: [facility] 07-07-2013 pneumococcal polysaccharide vaccine, 23 diaz Jeong MD Work Phone: [facility] 06-14-2007 pneumococcal polysaccharide vaccine, 23 diza Jeong MD Work Phone: [facility] 02-26-1999 pneumococcal polysaccharide vaccine, 23 diaz Jeong MD Work Phone: [facility] Payers Date Payer Category Payer Medicare (Managed Care) 1.2. [id number] 2024 Self-pay 2024 Private Health Insurance [id number] 2023 Medicare [id number] 2022 Unknown BCBS [facility] HMO/PPO/TRUST [id number] 2022-Rust [phone] [address] [place] [address] [id number] 2014 Medicare [id number] 2010 Medicare [id number]. [id number] 1959 Medicare [id number] 1959 Medicare [id number] 1959 Unknown [id number] 1945 Unknown [id number] 2.16.840.1.044765.3.579.2. 593 1945 Unknown [id number] 2.16.840.1.958525.3.579.2. 593 1945 Unknown [id number] 2.16.840.1.972634.3.579.2. 593 1945 Unknown [id number] 2.16.840.1.751560.3.579.2. 593 1945 Unknown [id number] 2.16.840.1.938370.3.579.2. 593 1945 Unknown [id number] 2.16.840.1.174111.3.579.2. 593 1945 Unknown [id number] 2.16.840.1.123073.3.579.2. 593 1945 Unknown [id number] 2.16.840.1.226964.3.579.2. 593 1945 Unknown [id number] 2.16.840.1.893619.3.579.2. 593 1945 Unknown [id number] 2.16.840.1.951328.3.579.2. 593 1945 Unknown [id number] 2.16.840.1.750441.3.579.2. 593 1945 Unknown [id number] 2.16.840.1.116769.3.579.2. 593 1945 Unknown [id number] 2.16.840.1.729925.3.579.2. 1259 1945 Unknown [id number] 2.16.840.1.002571.3.579.2. 1259 1945 Unknown [id number] 2.16.840.1.476995.3.579.2. 1286 1945 Unknown [id number] 2.16.840.1.200936.3.579.2. 1286 1945 Unknown [id number] 2.16.840.1.334045.3.579.2. 1286 Unknown [id number] 2.16.840.1.592281.3.579.2. 531 Social History Date Type Detail Facility Start: 02-22-2023 End: 02-07-2024 Tobacco smoking status NHIS Never smoked tobacco (finding) [facility] Start: 1945 Sex Assigned At Female F [facility] Start: 02-22-2023 End: 07-06-2024 History of Social function [facility] Start: 02-22-2023 End: 07-06-2024 Tobacco use panel [facility] Start: 1945 Sex assigned at Not on file P [facility] Start: 06-01-2022 Tobacco use and exposure Smoke less tobacco non-user [facility] Start: 03-02-2023 End: 05-08-2024 Alcohol intake Current drinker of alcohol (finding) [facility] Frequency of Communi cation with Friends and Family Three times a week [facility] Start: 03-09-2019 Education 14 [facility] Start: 01-15-2015 Sex Female (finding) [facility] Clinical Notes 06-23-2022 to 09-14-2024 [...] Resource Strain: Low Risk (03/09/2019) Received from [facility] Overall Financial Resource Strain (CARDIA) Difficulty of Paying Living Expenses: Not hard at all Food Insecurity: No Food Insecurity (05/08/2024) Received from [facility] Hunger Screening Within the past 12 months we worried whether our food would run out before we got money to buy more.: Never True Within the past 12 months the food we bought just didn't last and we didn't have money to get more.: Never True Transportation Needs: No Transportation Needs (03/09/2019) Received from [facility] PRAPARE - Transportation Lack of Transportation (Medical): No Lack of Transportation (Non-Medical): No Physical Activity: Sufficiently Active (03/09/2019) Received from [facility] Exercise Vital Sign Days of Exercise per Week: 7 days Minutes of Exercise per Session: 50 min Stress: Stress Concern Present (03/09/2019) Received from [facility] [employer] [place] [employer] - Occupational Stress Questionnaire Feeling of Stress : To some extent Social Connections: Socially Integrated (03/09/2019) Received from [facility] Social Connection and Isolation Panel [NHANES] Frequency of Communication with Friends and Family: Three times a week Frequency of Social Gatherings with Friends and Family: Three times a week Attends Quaker Services: More than 4 times per year [...] [place] DPM documented in this encounter [facility] 07-06-2024 History of Presen t illness Narrative [...] Past Medical History: Diagnosis Date Breast cancer ([facility]) Medications: No current outpatient medications on file. [...] Resource Strain: Low Risk (03/09/2019) Received from [facility] Overall Financial Resource Strain (CARDIA) Difficulty of Paying Living Expenses: Not hard at all Food Insecurity: No Food Insecurity (05/08/2024) Received from [facility] Hunger Screening Within the past 12 months we worried whether our food would run out before we got money to buy more.: Never True Within the past 12 months the food we bought just didn't last and we didn't have money to get more.: Never True Transportation Needs: No Transportation Needs (03/09/2019) Received from [facility] PRAPARE - Transportation Lack of Transportation (Medical): No Lack of Transportation (Non-Medical): No Physical Activity: Sufficiently Active (03/09/2019) Received from [facility] Exercise Vital Sign Days of Exercise per Week: 7 days Minutes of Exercise per Session: 50 min Stress: Stress Concern Present (03/09/2019) Received from [facility] [place] [place] [employer] - Occupational Stress Questionnaire Feeling of Stress : To some extent Social Connections: Socially Integrated (03/09/2019) Received from [facility] Social Connection and Isolation Panel [NHANES] Frequency of Communication with Friends and Family: Three times a week Frequency of Social Gatherings with Friends and Family: Three times a week Attends Quaker Services: More than 4 times per year [...] [place] DPM documented in this encounter [facility] 05-08-2024 History of Presen t illness Narrative Mariela Lindsey Date of visit: 05/08/2024 Date of : 1945 Age: 78 y.o. Patient Active Problem List Diagnosis Benign essential hypertension Chronic right-sided low back pain with right-sided sciatica Dyslipidemia Malignant neoplasm of female breast ([facility]) Temporomandibular joint disorder Pseudophakia Medicare annual wellness visit, subsequent Pain in both knees Severe obesity (BMI 35.0-39.9) with comorbidity ([facility]) Gastroesophageal reflux disease with esophagitis Thoracic outlet syndrome Depressive disorder Tension headache Sprain of right rotator cuff capsule Spinal stenosis of lumbar region Facet arthritis of lumbar region Scoliosis of lumbar spine Abnormal echocardiogram Pulmonary hypertension ([facility]) Allergies Allergen Reactions Hay Fever And Allergy [...] 0.5 tablets before bedtime. 90 tablet 0 mqkqaegv-uedl-NN-calcium &mins (THERAGRAN-M) 9 mg iron-400 mcg tablet [...] Past Medical History: Diagnosis Date Breast cancer ([facility]) 2013 RT GERD (gastroesophageal reflux disease) Hyperlipidemia Hypertension Menopausal syndrome (hot flashes) No data recorded No data recorded No data recorded Past Surgical History: Procedure Laterality Date APPENDECTOMY BELPHAROPTOSIS REPAIR Bilateral BLEPHAROPLASTY W/ LASER BREAST BIOPSY BREAST LUMPECTOMY Right 2013 RADIATION AND CHEMO Cardiac catheterization- Cors + Right heart + LV gram/press 70871 N/A 02/08/2023 Performed by Abdiel Lemus MD at [facility] CARDIAC CATH LABS CATARACT EXTRACTION Bilateral [...] 50 min Stress: Stress Concern Present (03/09/2019) [employer] - Occupational Stress Questionnaire Feeling of Stress : To some extent Social Connections: Socially Integrated (03/09/2019) Social Connection and Isolation Panel [NHANES] Frequency of Communication with Friends and Family: Three times a week Frequency of Social Gatherings with Friends and Family: Three times a week Attends Quaker Services: More than 4 times per year [...] medications. IMPRESSIONS/PLAN 1. 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 pectoris - POCT EKG 2. Pulmonary hypertension (CMS-HCC) 3. Benign essential hypertension 4. Dyslipidemia 5. 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 PCP: HEATHER ZIMMERMAN Referring Physician: KANIKA BillRESPIRATORY CARE PROGRAM DIRECTOR [address] [place] [address] [facility] 05-05-2024 Miscellaneous Notes Called patient to remind them to bring their most current copy of their medication list with them to their appt. Patient verbalizes understanding. [facility] 05-05-2024 Telephone encounter Note Called patient to remind them to bring their most current copy of their medication list with them to their appt. Patient verbalizes understanding. [facility] Telephone encounter Note Patient called. I tracked order and aids arrived today from [employer]. Told patient the aids could be sent to [facility] where she can pick them up. [facility] hours were reviewed. [facility] 04-25-2024 Miscellaneous Notes Patient called. I tracked order and aids arrived today from [employer]. Told patient the aids could be sent to [facility] where she can pick them up. [facility] hours were reviewed. Pt wants us to call her at [phone] when her aids are back from repair [...] from [employer] documented in this encounter [facility] 04-17-2024 Telephone encounter Note Pt wants us to call her at [phone] when her aids are back from repair [facility] Work Phone: 04-12-2024 Telephone encounter Note Pt [...] when aids are back from [employer] [facility] 03-30-2024 Miscellaneous Notes Last OV 03/02/23 Pt will call to make appt Last [facility] 12/18/22 Orders placed for BMP and Mg.slm documented in this encounter [facility] 03-30-2024 Telephone encounter Note Last OV 03/02/23 Pt will call to make appt Last [facility] 12/18/22 Orders placed for BMP and Mg.slm [facility] 09-24-2022 Note CONSULTATION CONSULTATION DATE: 09/24/2022 TO: [...] this infrequently. She is no longer on Greenwood, since at least July. Her GERALDO on [...] our patients to inform us about any mdrf-ttm-plniqzc medications or herbal remedies/nutritional supplements/alternative remedies. 2. [...] care provider. [facility] 08-20-2022 Note CONSULTATION CONSULTATION DATE: 08/20/2022 [...] Medications include Celebrex 200 mg daily, multivitamin, Greenwood 5/325 daily p.r.n., Excedrin and baclofen 10 [...] L4, L5. She is to continue her Greenwood 5/325 daily p.r.n. and I highly encouraged her to use a heat rub and heat application once to twice daily. Patient agrees with this plan of care and will be brought back to the clinic thereafter. [facility] 07-23-2022 Note PAIN MANAGEMENT CONS ULTATION [...] greatly aggravate her pain. Current medications include Greenwood 5/325 daily p.r.n., baclofen 10 mg q.h.s. [...] office thereafter. [facility] 06-23-2022 Note CONSULTATION CONSULTATION DATE: 06/23/2022 [...] of a neurosurgical consult at [facility]. The patient's PAST MEDICAL HISTORY [...] PLAN: We will start the patient on Greenwood 5/325 one tablet p.o. daily. The patient [...] would like to proceed. CC: DEIRDRE Bill [facility] Evaluation note No assessment inform ation available [facility] Work Phone: Evaluation note Diagnosis Metatarsal deformity, right- Primary Pain due to onychomycosis of toenails of both feet Metatarsal deformity, left documented in this encounter [facility]* Diagnosis 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 pectoris- Primary [facility] Diagnosis 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 pectoris- Primary Pulmonary hypertension (CMS-HCC) Other chronic pulmonary heart diseases Benign essential hypertension Essential hypertension, benign Dyslipidemia Other and unspecified hyperlipidemia Dyspnea on exertion Other dyspnea and respiratory abnormality documented in this encounter [facility]* Diagnosis Metatarsal deformity, left- Primary Pain due to onychomycosis of toenails of both feet Metatarsal deformity, right documented in this encounter [facility]ructionsNot on filedocumented in this encounterProMediid Health SystemInstructionsNot on filedocumented in this encounterProM[facility] SystemInstructionsNot on filedocumented in this encounterProM[facility] Summary Purpose Family History No [...] Documents on File Type Date Recorded Patient [employer]ation Living Will 10/11/2015 2:28 PM Chief Complaint and Reason for Visit Chief Complaint refractory anemia ev al for mds Additional Source Comments INFORMATION SOURCE (unrecogn ized section and content) DATE CREATED AUTHOR 12/02/2017 [facility] DATE CREATED AUTHOR AUTHOR'S ORGANIZ ATION 11/20/2022 [facility] DATE CREATED AUTHOR AUTHOR'S ORGANIZ ATION 02/12/2024 [facility] DATE CREATED AUTHOR AUTHOR'S ORGANIZ ATION 09/17/2024 [facility] EPIC DATE CREATED AUTHOR AUTHOR'S ORGANIZ ATION 11/08/2024 [facility] Care Teams (unrecognized sec tion and content) Team Status: Active Member Role Status Dates Chanell Chen APRN Primary Care Provider Active Team Status: Inactive Member Role Status Dates Claribel Pickett MD Attending Provider Active St art: February 07, 2024 End: February 07, 2024 Chanell Chen APRN Primary Care Provider Active Start: February 07, 2024 End: February 07, 2024 Slurry Blender Relationship Specialty Start Date End Date Adi Figueroa APRN-CNP [address] [place] [id number] PCP - General Primary Care 06/01/22 Slurry Blender Relationship Specialty Start Date End Date Adi Figueroa APRN-CNP [address] [place] [id number] PCP - General Primary Care 06/01/22 Slurry Blender Relationship Specialty Start Date End Date Gustavo, Chanell, IT HELP DESK ANALYST-GUEST EXPERIENCE MANAGER [address] [place] [address] PCP - General Family Medicine 05/08/24 Slurry Blender Relationship Specialty Start Date End Date Adi FigueroaCAROLINE-RESPIRATORY CARE PROGRAM DIRECTOR [address] [place], [place] [id number] PCP - General Primary Care 06/01/22 Slurry Blender Relationship Specialty Start Date End Date Unallocated, Christel Edmond MD [address] [place] [id number] PCP - General Family Medicine 09/14/24 Slurry Blender Relationship Specialty Start Date End Date Unallocated, Christel Edmond MD [address] [place] [id number] PCP - General Family Medicine 09/14/24 Goals [...] BE BASED ON THE PRIMARY CLINICAL RECORDS. [facility] [employer] [facility]. provides no warranty or guarantee of the accuracy or completeness of information in this document.
--- NOTE | 2025-03-06 17:43 | PM.HP ---
HPI H&P: HPI History of Present Illness Chief complaint: ABNORMAL LAB VALUES, ROSEY, HYPERKALEMIA Narrative: Mrs. Hurtado is a 79-year-old female with a history of hypertension. She had an outpatient labs showing hyperkalemia therefore she was sent to the emergency room for and evaluation and treatment. Her potassium came back in the emergency room at 6.8. Patient denies any new medication. She is on lisinopril and Aldactone. Patient admitted that she loves eating banana, nuts and kiwi which are rich with the potassium. No prior history of hypokalemia. No chest pain. No abdominal pain. No fever or chills. Opioid HPI Opioid Management Most Recent Pain and Opioid Data: Last Pain Scale 4 01/26/23, 13:10 Last ORT Total Score 4 Today, 17:10 Last ORT Risk Category Moderate Risk Today, 17:10 Review of Systems ROS Status of ROS 10 or more systems reviewed and unremarkable except as noted in history and below [facility] Medical History (Updated 03/06/25 @ 17:45 by Hannah Lozada MD) Cataract (lens) fragments in eye following cataract surgery ?H59.029 - Cataract (lens) fragments in eye following cataract surgery, unspecified eye (ICD-10) Breast cancer ?C50.919 - Malignant neoplasm of unspecified site of unspecified female breast (ICD-10) Surgical History (Updated 01/18/23 @ 13:32 by Nancy Delgado) History of lumpectomy of right breast ?Z98.890 - Other specified postprocedural states (ICD-10) H/O: hysterectomy ?Z90.710 - Acquired absence of both cervix and uterus (ICD-10) History of appendectomy ?Z90.49 - Acquired absence of other specified parts of digestive tract (ICD-10) Hx of tonsillectomy ?Z90.89 - Acquired absence of other organs (ICD-10) H/O section ?Z98.891 - History of uterine scar from previous surgery (ICD-10) History of musculoskeletal system surgery ?Z98.890 - Other specified postprocedural states (ICD-10) Family History (Updated 01/18/23 @ 13:34 by Nancy Delgado) Other Family history of cancer Heart disease Kidney disease Social History (Updated 08/07/23 @ 14:01 by Nancy Delgado) Within the past year, how often did you have a drink containing alcohol: 2-4 times a month Smoking status: Never smoker Non-prescribed substance use: denies use Previous occupational history: retired Highest level of school completed/degree received: high school graduate Little interest or pleasure in doing things: not at all Feeling down, depressed, or hopeless: not at all Meds Home Medications and Allergies Home Medications ?Medication ?Instructions ?Recorded ?Confirmed ?Type aripiprazole 2 mg tablet 2 mg PO DAILY 01/18/23 03/06/25 History alprazolam 1 mg tablet 1 mg PO .qhs anxiety 03/06/25 03/06/25 History citalopram 20 mg tablet 20 mg PO DAILY 03/06/25 03/06/25 History diclofenac sodium 75 mg 75 mg PO Q12H PRN pain 03/06/25 03/06/25 History tablet,delayed release lisinopril 20 1 tab PO BID 03/06/25 03/06/25 History mg-hydrochlorothiazide 25 mg tablet omeprazole 20 mg capsule,delayed 20 mg PO DAILY 03/06/25 03/06/25 History release pravastatin 20 mg tablet 20 mg PO DAILY 03/06/25 03/06/25 History spironolactone 25 mg tablet 25 mg PO DAILY 03/06/25 03/06/25 History Allergies Allergy/AdvReac Type Severity Reaction Status Date / Time adhesive tape Allergy Unknown Rash Verified 03/06/25 10:05 Exam Narrative Exam Narrative: [pt is awake and alert. oriented to place, time and person HEENT: [place] conjunctiva and NL buccal mucosa Neck: Supple, no tenderness Endocrine: No Thyromegaly. Vascular: No JVD or carotid bruit. Lymphatic: No cervical lymphadenopathy. Chest: CTA no DTP. Heart RRR, no extra sound or murmur. Abd: Soft, no tenderness, no rebound and no rigidity. Increase abd girth therefore clinically I could not exclude the possibility of intra abd mass or organomegaly. LE: No cyanosis or clubbing, no varices or edema. Neuro: A A O. Nl speech, comprehension and attention. Nl and symetrical motor and tone examination through out. Resting tremor is noted []] Constitutional Vital Signs, click to edit/add: Last Vital Signs Temp 97.5 F L 03/06/25 17:30 Pulse 68 03/06/25 17:30 Resp 18 03/06/25 17:30 BP 138/80 03/06/25 17:30 Pulse Ox 96 03/06/25 17:30 O2 Del Method Room Air 03/06/25 17:30 Results Labs Labs: Short CBC 03/06/25 Range/Units 10:48 WBC 4.8 (4.0-11.0) 10^3/uL Hgb 9.5 L (12.0-16.0) g/dL Hct 28.7 L (36.0-48.0) % Plt Count 208 (150-450) 10^3/uL BMP 03/06/25 03/06/25 10:48 15:03 Sodium 137 Potassium 6.8 H* 5.7 H Chloride 106 Carbon Dioxide 21.0 BUN 33.0 H Creatinine 1.28 H Glucose 92 Calcium 8.8 Liver Function 03/06/25 Range/Units 10:48 Total Bilirubin 0.2 (0.2-1.0) mg/dL AST 17 (15-37) U/L ALT 23 (14-59) U/L Alkaline Phosphatase 79 (46-116) U/L Albumin 3.7 (3.4-5.0) g/dL Assessment and Plan Assessment and Plan (1) ROSEY (acute kidney injury): (2) Hyperkalemia: (3) Hypertension: (4) Tremor: Plan Hyperkalemia associated with a mild ROSEY Likely caused by ROSEY and the fact that patient was taking lisinopril and spironolactone. Patient also admitted eating potassium rich food such as nuts, kiwi and banana. Patient also is taking NSAIDs which can increase risk having hyperkalemia and can potentially induce type IV RTA I had accepted to admit patient to the telemetry unit. I had instructed the emergency room team to give her hyperkalemic cocktail including insulin, Lasix, Kayexalate and calcium gluconate. Her potassium is trending down. Discontinue lisinopril and spironolactone Counseling about diet and the need to cut down eating potassium rich food. Resting tremor. No rigidity. I did not examine her gait but patient stated that she walks slowly. She may have early Parkinson disease Patient is scheduled to follow-up with neurology. Anemia, no evidence of acute blood loss. Patient will likely require to have anemia workup to be done in the outpatient setting to be handled by PCP in collaboration with other needed outpatient providers. This may include but not limited to EGD, colonoscopy, referral to see hematology and other needed age-appropriate cancer screening. Chronic medical conditions not listed above, incidental findings seen on labs and imaging. These would need to be addressed. Could be addressed when time and condition are appropriate. Could be addressed in the outpatient setting by PCP collaboration with other needed outpatient providers. I discussed her case with her daughter and at the bedside. I provided her information about her disease, prognosis, expectation and trajectory. I answered all of her questions.
[2025-03-06] MEDS: 0.9 % SODIUM CHLORIDE 1,000 ML 70 ML IV (18:21)
[2025-03-06 21:19] LABS: Potassium 4.9 mmol/L (3.5-5.1)
[2025-03-06] MEDS: ALPRAZOLAM 1 MG TABLET PO (21:39)
[2025-03-07] VITALS (14 sets, daily range): BP systolic 111–155; BP diastolic 57–83; PULSE 59–70; TEMP 36.5–37.1; O2SAT 94–96
[2025-03-07 05:21] LABS: Hematocrit 30.4 % (36.0-48.0); Hemoglobin 9.9 g/dL (12.0-16.0); Immature Granulocytes Abs Auto 0.00 10^3/uL (0.00-0.03); Immature Granulocytes Pct Auto 0.0 % (0.0-0.5); Lymphocytes Absolute Auto 1.4 10^3/uL (1.2-3.8); Mean Corpuscular HGB Conc 32.6 g/dL (29.9-35.2); Mean Corpuscular Hemoglobin 33.7 pg (26.7-34.0); Mean Corpuscular Volume 103.4 fL (81.0-99.0); Platelet Count 215 10^3/uL (150-450); Red Blood Count 2.94 10^6/uL (4.20-5.40); White Blood Count 5.3 10^3/uL (4.0-11.0)
[2025-03-07 05:29] LABS: Anion Gap 12.2; Blood Urea Nitrogen 24.0 mg/dL (7.0-18.0); Calcium 8.6 mg/dL (8.5-10.1); Carbon Dioxide 22.5 mmol/L (21.0-32.0); Chloride 109 mmol/L (98-107); Estimated GFR (African America 59 (>=60 mL/min/1.73m^2); Estimated GFR (Non-African Ame 48 (>=60 mL/min/1.73m^2); Glucose 88 mg/dL (74-106); Magnesium 1.6 mg/dL (1.8-2.4); Potassium 5.7 mmol/L (3.5-5.1); Sodium 138 mmol/L (136-145)
[2025-03-07] MEDS: PANTOPRAZOLE SODIUM 40 MG TABLET.DR PO (05:51)
[2025-03-07] MEDS: CITALOPRAM HYDROBROMIDE 20 MG TABLET PO (09:09)
[2025-03-07] MEDS: ENOXAPARIN SODIUM 30 MG/0.3 ML SYRINGE SUBQ (09:09)
[2025-03-07] MEDS: MAGNESIUM SULFATE IN WATER 2 GM/50 ML PREMIX IV (09:10)
[2025-03-07] MEDS: ATORVASTATIN CALCIUM 10 MG TABLET PO (09:10)
[2025-03-07] MEDS: ARIPIPRAZOLE 2 MG TABLET PO (09:10)
--- NOTE | 2025-03-07 09:40 | CM.NOTE ---
In with Dr. Lozada for rounds discharge planned for later today or tomorrow. No current needs identified.
--- NOTE | 2025-03-07 12:03 | P.PN_ITS ---
Progress Note: Subjective Subjective Interval history: No new symptoms. Patient is feeling well. Exam Narrative Exam Narrative: [pt is awake and alert. oriented to place, time and person HEENT: [place] conjunctiva and NL buccal mucosa Neck: Supple, no tenderness Endocrine: No Thyromegaly. Vascular: No JVD or carotid bruit. Lymphatic: No cervical lymphadenopathy. Chest: CTA no DTP. Heart RRR, no extra sound or murmur. Abd: Soft, no tenderness, no rebound and no rigidity. Increase abd girth therefore clinically I could not exclude the possibility of intra abd mass or organomegaly. LE: No cyanosis or clubbing, no varices or edema. Neuro: A A O. Nl speech, comprehension and attention. Nl and symetrical motor and tone examination through out. Mild resting tremor []] Constitutional Vital Signs, click to edit/add: Last Vital Signs Temp 97.8 F 03/07/25 08:00 Pulse 69 03/07/25 12:00 Resp 18 03/07/25 08:00 BP 112/57 03/07/25 08:00 Pulse Ox 96 03/07/25 08:00 O2 Del Method Room Air 03/07/25 08:00 Progress Note: Objective Labs Labs: Short CBC 03/07/25 Range/Units 05:02 WBC 5.3 (4.0-11.0) 10^3/uL Hgb 9.9 L (12.0-16.0) g/dL Hct 30.4 L (36.0-48.0) % Plt Count 215 (150-450) 10^3/uL BMP 03/06/25 03/06/25 03/07/25 15:03 21:05 05:02 Sodium 138 Potassium 5.7 H 4.9 5.7 H Chloride 109 H Carbon Dioxide 22.5 BUN 24.0 H Creatinine 1.09 H Glucose 88 Calcium 8.6 Progress Note: A&P Assessment and Plan (1) ROSEY (acute kidney injury): (2) Hyperkalemia: (3) Hypertension: (4) Tremor: Plan Hyperkalemia associated with a mild ROSEY Likely caused by ROSEY and the fact that patient was taking lisinopril and spironolactone. Patient also admitted eating potassium rich food such as nuts, kiwi and banana. Patient also is taking NSAIDs which can increase risk having hyperkalemia and can potentially induce type IV RTA I had accepted to admit patient to the telemetry unit. I had instructed the emergency room team to give her hyperkalemic cocktail including insulin, Lasix, Kayexalate and calcium gluconate. Her potassium is trending down. Discontinued diclofenac, lisinopril and spironolactone Counseling about diet and the need to cut down eating potassium rich food. Potassium this morning is up to 5.7. Repeat potassium at 6 PM and tomorrow morning. Resting tremor. No rigidity. I did not examine her gait but patient stated that she walks slowly. She may have early Parkinson disease Patient is scheduled to follow-up with neurology. CKD stage III At baseline Hypertension Blood pressure is on the low side of spironolactone and lisinopril Continue to monitor and decide when patient could resume lisinopril at a lower dose or use alternative agents. Anemia, no evidence of acute blood loss. Patient will likely require to have anemia workup to be done in the outpatient setting to be handled by PCP in collaboration with other needed outpatient providers. This may include but not limited to EGD, colonoscopy, referral to see hematology and other needed age-appropriate cancer screening. Chronic medical conditions not listed above, incidental findings seen on labs and imaging. These would need to be addressed. Could be addressed when time and condition are appropriate. Could be addressed in the outpatient setting by PCP collaboration with other needed outpatient providers. 03/06:I discussed her case with her daughter and at the bedside. I provided her information about her disease, prognosis, expectation and tra jectory. I answered all of her questions. 03/07:I discussed her case with her daughter at the bedside. I provided her information about her disease, prognosis, expectation and trajectory. I answered all of her questions. is not in the room
--- NOTE | 2025-03-07 15:09 | SWNOTE1 ---
Important Message from [employer] reviewed and discussed with patient. Pt. verbalized understanding and signed the form. Original given to patient and copy placed in patient?s chart.
--- NOTE | 2025-03-07 15:09 | SWNOTE1 ---
SW met with pt to discuss dc needs. Pt's 2 friends were in room as well. Pt is independent and does not use any devices at home. Pt lives at home with her . She does not have any services coming in. Pt has no anticipated discharge needs at this time. SW to follow as needed.
[2025-03-07 18:29] LABS: Potassium 5.2 mmol/L (3.5-5.1)
[2025-03-07] MEDS: TORSEMIDE 20 MG TABLET 10 MG PO (20:35)
[2025-03-07] MEDS: ALPRAZOLAM 1 MG TABLET PO (21:35)
[2025-03-08] VITALS (8 sets, daily range): BP systolic 124–127; BP diastolic 74–75; PULSE 58–76; TEMP 36.4–36.6; O2SAT 92–95
[2025-03-08] MEDS: PANTOPRAZOLE SODIUM 40 MG TABLET.DR PO (05:52)
[2025-03-08 06:03] LABS: Anion Gap 12.9; Blood Urea Nitrogen 21.0 mg/dL (7.0-18.0); Calcium 9.1 mg/dL (8.5-10.1); Carbon Dioxide 24.4 mmol/L (21.0-32.0); Chloride 107 mmol/L (98-107); Estimated GFR (African America 60 (>=60 mL/min/1.73m^2); Estimated GFR (Non-African Ame 49 (>=60 mL/min/1.73m^2); Glucose 92 mg/dL (74-106); Potassium 5.3 mmol/L (3.5-5.1); Sodium 139 mmol/L (136-145)
[2025-03-08] MEDS: ATORVASTATIN CALCIUM 10 MG TABLET PO (08:55)
[2025-03-08] MEDS: CITALOPRAM HYDROBROMIDE 20 MG TABLET PO (08:55)
[2025-03-08] MEDS: ENOXAPARIN SODIUM 30 MG/0.3 ML SYRINGE SUBQ (08:55)
[2025-03-08] MEDS: ARIPIPRAZOLE 2 MG TABLET PO (08:55)
--- NOTE | 2025-03-08 09:00 | CM.NOTE ---
Rounds made with Dr. Lozada, pt will discharge to home today and f/u with PCP and pt has hematology appt already scheduled. Pt given outpatient lab requisition for BMP next week to follow up on hyperkalemia. Pt verbalizes understanding. Pt had outpatient lab work scheduled for Dr. Pickett today and will complete at discharge. Lab notified and will come up to room to draw outpatient labs once pt discharged.
--- NOTE | 2025-03-08 09:36 | P.DS_ITS ---
DS: Providers Provider Date of admission: 03/06/25 16:58 Primary care physician: Guillermina Frazier NP DS: Diagnosis Discharge Diagnosis (1) ROSEY (acute kidney injury): (2) Hyperkalemia: (3) Hypertension: (4) Tremor: Plan As listed above, below and others that are not listed DS: Summary Hospital Course Hospital Course: Mrs. Hurtado is a 79-year-old female who came in after an outpatient blood test showed potassium of 6.8. Hyperkalemia associated with a mild ROSEY Likely caused by ROSEY and the fact that patient was taking lisinopril and spironolactone. Patient also admitted eating potassium rich food such as nuts, kiwi and banana. Patient also is taking NSAIDs which can increase risk having hyperkalemia and can potentially induce type IV RTA I had accepted to admit patient to the telemetry unit. I had instructed the emergency room team to give her hyperkalemic cocktail including insulin, Lasix, Kayexalate and calcium gluconate. Her potassium is trending down. Discontinued diclofenac, lisinopril and spironolactone Counseling about diet and the need to cut down eating potassium rich food. Potassium level is around 5.3. Patient will be discharged home off lisinopril, diclofenac and the spironolactone. She will be discharged home on torsemide 80 mg daily. Repeat BMP next week at PCP office. Resting tremor. No rigidity. I did not examine her gait but patient stated that she walks slowly. She may have early Parkinson disease Patient is scheduled to follow-up with neurology. CKD stage III At baseline Hypertension Blood pressure is well-controlled off spironolactone and lisinopril Continue to monitor and decide when patient could resume lisinopril at a lower dose or use alternative agents. Patient was instructed to check her blood pressure daily at home and report to her doctor if systolic blood pressure goes above 165. Consider blood pressure agents other than spironolactone, FELIPE or ARB. Anemia, no evidence of acute blood loss. Patient will likely require to have anemia workup to be done in the outpatient setting to be handled by PCP in collaboration with other needed outpatient providers. This may include but not limited to EGD, colonoscopy, referral to see hematology and other needed age-appropriate cancer screening. Chronic medical conditions not listed above, incidental findings seen on labs and imaging. These would need to be addressed. Could be addressed when time and condition are appropriate. Could be addressed in the outpatient setting by PCP collaboration with other needed outpatient providers. 03/06:I discussed her case with her daughter and at the bedside. I provided them information about her disease, prognosis, expectation and trajectory. I answered all of her questions. 03/07:I discussed her case with her daughter at the bedside. I provided her information about her disease, prognosis, expectation and trajectory. I answered all of her questions. is not in the room 03/08: I discussed her case with her 2 daughters at the bedside. I provided them information about her disease, prognosis, expectation and trajectory. Patient has multiple medical issues as listed above and others that are not listed. All appear to be stable. I do not have any clear or strong clinical justification to extend inpatient hospitalization. Patient however will require close and frequent monitoring as well as additional work-up, investigation and therapeutic intervention that could take place from this point on post discharge. That is to prevent relapse, decompensation, rehospitalization and other medical implications.. I instructed patient to ask her primary care doctor to obtain [facility] record entirely to address abnormalities seen on labs and imaging that I have and have not addressed during this hospitalization, follow-up on pending blood work, imaging and pathology is if available and to follow-up on needed medical care in the outpatient setting. Time Spent with Patient Time attestation: Total time spent providing and/or coordinating discharge services: Time spent: greater than 30 minutes Exam Narrative Exam Narrative: [pt is awake and alert. oriented to place, time and person HEENT: [place] conjunctiva and NL buccal mucosa Neck: Supple, no tenderness Endocrine: No Thyromegaly. Vascular: No JVD or carotid bruit. Lymphatic: No cervical lymphadenopathy. Chest: CTA no DTP. Heart RRR, no extra sound or murmur. Abd: Soft, no tenderness, no rebound and no rigidity. Increase abd girth therefore clinically I could not exclude the possibility of intra abd mass or organomegaly. LE: No cyanosis or clubbing, no varices or edema. Resting tremor Neuro: A A O. Nl speech, comprehension and attention. Nl and symetrical motor a nd tone examination through out. []] Constitutional Vital Signs, click to edit/add: Last Vital Signs Temp 97.8 F 03/08/25 08:50 Pulse 76 03/08/25 08:50 Resp 16 03/08/25 08:50 BP 124/74 03/08/25 08:50 Pulse Ox 95 03/08/25 08:50 O2 Del Method Room Air 03/08/25 08:50 DS: Data Data Completed and Pending Labs on day of discharge: Labs from last 24 hours 03/08/25 03/07/25 05:09 17:57 Sodium 139 Potassium 5.3 H 5.2 H Chloride 107 Carbon Dioxide 24.4 Anion Gap 12.9 BUN 21.0 H Creatinine 1.07 H Est GFR ( Amer) 60 Est GFR (Non-Af Amer) 49 L BUN/Creatinine Ratio 19.6 Glucose 92 Calcium 9.1 Discharge Plan Discharge Disposition: Home, Self-Care Discharge Medications: New torsemide 10 mg tablet 10 mg PO DAILY Qty: 30 1RF Continued aripiprazole 2 mg tablet 2 mg PO DAILY citalopram 20 mg tablet 20 mg PO DAILY pravastatin 20 mg tablet 20 mg PO DAILY alprazolam 1 mg tablet 1 mg PO .qhs omeprazole 20 mg capsule,delayed release(DR/EC) 20 mg PO DAILY Discontinued diclofenac sodium 75 mg tablet,delayed release (DR/EC) 75 mg PO Q12H PRN (Reason: pain) spironolactone 25 mg tablet 25 mg PO DAILY lisinopril-hydrochlorothiazide 20-25 mg tablet 1 tab PO BID Print Language: Pashto Patient Instructions: Torsemide (By mouth), Acute Kidney Injury (DC), Hyperkalemia (DC) Activity Restrictions/Additional Instructions: I may not have addressed or treated all of your medical illnesses or the abnormal blood work or imaging studies during this hospitalization. Please ask your primary care provider to obtain [facility] records entirely to follow up on all of the abnormal physical, laboratory, and imaging findings that I have not addressed. Please return back to the emergency room or seek medical attention if your symptoms worsen or return. Your blood pressure might go up over the next several days now that you are not taking lisinopril and spironolactone. Check your blood pressure every day. Please notify your doctor if your systolic blood pressure (the upper blood pressure number ) is climbing above 165 Blood test BMP to check your potassium next week at primary care doctor's office. Please do not take diclofenac, Voltaren, Motrin, ibuprofen, Naprosyn, Aleve, Advil. Please cut down on eating potassium rich foods such as banana, kiwi and nuts. Discharging you from [facility] does not mean that your medical care ends here and now. You may still need additional monitoring, work up, investigation, and treatment plan to be handled from this point on by out patient providers including your primary care provider and specialists. For any medication question, please contact your retail pharmacist or your primary care provider. Thank you. Forms: Portal Instructions Follow Up Appointments: 03/12 @ 10:30am with Guillermina Frazier NP [id number] [phone]
--- NOTE | 2025-03-13 14:04 | CM.DCFOLLOWU ---
Person spoke with:Elli How are you feeling?Much better How is your pain?No pain Did you understand your discharge instructions?Yes Do you have any questions about your discharge instructions?No Were you given any prescriptions at discharge?Yes Were you able to get your prescriptions filled?Yes Do you understand how to take your medications as ordered?Yes Do you have any questions about your follow up appointment and do you plan to keep your follow up appointment? No questions. Patient states she went to her follow up appt yesterday. Is there anything else that you would like to discuss? No Questions/Comments/Concerns/Other: States her blood pressure is down and she feels much better
== END 2025-03-08 10:10 | disposition home or self-care (01) | DRG 641 ==
LOC: ER 15:57 → MS 17:08
PROVIDERS: Admitting Provider Internal Medicine; Emergency Provider Emergency Medicine; Visit Provider Internal Medicine
DX: E87.5 Hyperkalemia (principal); N17.9 Acute kidney failure, unspecified; G25.2 Other specified forms of tremor; I12.9 Hypertensive chronic kidney disease with stage 1 through stage 4 chronic kidney disease, or unspecified chronic kidney disease; N18.30 Chronic kidney disease, stage 3 unspecified; D64.9 Anemia, unspecified; Z79.899 Other long term (current) drug therapy; Z85.3 Personal history of malignant neoplasm of breast; Z90.710 Acquired absence of both cervix and uterus; Z90.49 Acquired absence of other specified parts of digestive tract
CPT/HCPCS: 36415; 80048; 80053; 83735; 84132; 85025; 93005; 96365; 96375; 99285; J0613; J1650; J1817; J1938; J3475

== ENCOUNTER 2025-03-08 10:33 | Outpatient (OUT) | payer MEDICARE, SELFPAY ==
--- OUTSIDE RECORDS SUMMARY | 2024-09-05 05:00 | XMS_ITS ---
Author Organization [facility] in [place] Address [address] [place] [address] Care Team Providers Care Payroll Coordinator Name Role Phone Doron SHAH, Adi Primary Care Provider Unavailab Claribel Dias Unavailable [phone] REASON FOR VISIT MD Encounters Encounter Location Date Provider Diagnosis [facility] [address] [place] [address] 09/05/2024 Claribel Pickett Plan Of Treatment Next Appt Details Provider Name:Claribel Pickett , 03/13/2025 09:00:00 AM, [address] [place], [address], Provider Name:Morteza Calles, 06/25/2025 12:00:00 PM, [address] [place] [address], [phone], Progress Notes * Elli LINDSEY LouDOB: [birth year] (79 yo F)Acc No.[id number]:09/05/2024 UNLOCKED PROGRESS NOTE Progress Notes Patient: Elli LEUNG Provider: Gracie Pickett M.D. :1945 A ge:78 Y S ex:Female Date:09/05/2024 Address:[address] [place], [place] Pcp:Adi Sal NP Subjective: * Chief Complaints: * 1 . MD. * Medical History: Objective: * Vitals: Assessment: Plan: * Treatment: * * Electronic signature of Susu Pickett MD, [id number] on 03/08/2025 at 10:37 AM EDT Sign off status: Pending Visit Status: Sulma MIR (Voice) * Provider: Gracie Pickett M.D. Date: 0 09/05/2024 Generated for Tejali ng/Elvia/eTransmitting on: 0 03/08/2025 10:37 AM EDT
--- OUTSIDE RECORDS SUMMARY | 2025-03-05 03:15 | XMS_ITS ---
Author Organization Formerly [facility], [facility] vices Address [address] [place], [place] [id number] Care Team Providers Care Clamp Truck Driver Name Role Phone Guillermina Frazier Primary Care Provider Kayla Ocampo Unavailable [phone] Allergies No Known Allergies Results Component Value Reference Range Notes COMPREHENSIVE METABOLIC PANE L WITH GFR Reviewed date:03/06/2025 01:36:45 PM Interpretation: Performing Lab: Notes/Report: GLUCOSE 97 70-100 mg/dL BUN 33 8-23 mg/dL CALCIUM 9.5 8.6-10.5 mg/dL CREATININE, BLOOD 1.49 0.51-1.15 mg/dL eGFR (2020 CKD-EPI) 36 >59 mL/min/1.73m2 SODIUM 137 135-148 mmol/L POTASSIUM 6.6 3.5-5.4 mmol/L Analytic results reviewed and verified. Potassium results may be falsely increased due to prolonged contact of serum with cells, or in cases of incomplete centrifugation when using serum separator tubes. CHLORIDE 107 96-107 mmol/L CO2 19 18-32 mmol/L ANION GAP 11 7-16 mmol/L T. BILIRUBIN 0.3 <1.3 mg/dL ALK PHOS 79 30-146 U/L AST-SGOT 16 9-40 U/L ALT-SGPT 13 5-33 U/L T. PROTEIN 6.6 6.0-8.3 g/dL ALBUMIN 4.4 3.5-5.2 g/dL TSH WITH FT4 REFLEX Reviewed date:03/06/2025 01:36:38 PM Interpretation: Performing Lab: Notes/Report: TSH 1.99 0.270-4.200 uIU/mL The [place] [employer] (MARTIN) recommends the following reference ranges for TSH levels during : First trimester: 0.1 to 2.5 mIU/L Second trimester: 0.2 to 3.0 mIU/L Third trimester: 0.3 to 3.0 mIU/L UNLESS OTHERWISE INDICATED, ALL TESTING PERFORMED AT: [facility] [address] [place] [id number] MORTGAGE LOAN PROCESSOR: Tay NOGUEIRAIA NUMBER [id number] [facility] ACCREDITATION AUID [id number] Reason For Referral Reason new onset, eval and manage Diagnosis 1 Tremor of left hand (R25.1) Referral Organization Main Referring Provider First Name Kayla Referring Provider Last Name Terrence Referring Provider Speciality Internal M edicine Referred Provider [facility] Advanced N eurology Referred Provider Specialty Neurology Referral Priority Routine REASON FOR VISIT hand trembling (recently started) Medications Medication SIG (Take, Route, Frequency, Duration) Notes Start Date End Date Status Colchicine 0.6 MG TAKE 2 TABLETS BY MOUTH NOW THEN 1 TABLET ONE HOUR LATER - REPEAT IN 3 DAYS IF NEEDED; Duration: 3 Not-Taking Levocetirizine Dihydrochloride 5 MG 1 tablet in the evening Orally Once a day Not-Taking predniSONE 20 MG 1 tablet Orally twice daily; Duration: 7 days As needed 06/08/2024 Not-Taking Motrin Not-Taking Nitrofurantoin Monohyd Macro 100 MG 1 capsule with food Orally every 12 hrs; Duration: 5 days 04/11/2024 Not-Taking Lisinopril-hydroCHLORO thiazide 20-25 MG 1 tablet Orally once daily; Duration: 90 days Active Diclofenac Sodium 75 MG 1 tablet as needed Orally Twice a day; Duration: 30 days 01/29/2025 Active Pravastatin Sodium 20 MG 1 tablet Orally Once a day; Duration: 90 days Active Hydrocortisone 1 % 1 application Externally Once a day; Duration: 14 days 02/01/2025 Active hydrOXYzine HCl 25 MG 1 tablet as needed Orally Once a day; Duration: 14 days 02/01/2025 Active Citalopram Hydrobromide 20 MG 1 tablet Orally Once a day Active Lansoprazole 15 MG 1 capsule before a meal Orally Once a day Active Multivitamin - 1 tablet Orally Once a day Active ALPRAZolam 1 MG 1 tablet Orally once a day Active ARIPiprazole 2 MG 1 tablet Orally Once a day Active Misc Natural Products - as directed Orally MegaFood Iron Blood Builder Active Spironolactone 25 MG 1 tablet Orally Active Iron otc Active Cetirizine HCl 10 MG 1 tablet Orally Once a day Active Social History Sex Assigned At : Social History Observation Description Sex Assigned At Female Vital Signs Temperature 97.1 degrees Fahrenheit 03/05/20 Weight 183.7 lbs 03/05/2025 Height 60 in 03/05/2025 BMI 35.87 kg/m2 03/05/2025 Blood pressure systolic 110 mm Hg 03/05/20 25 Blood pressure diastolic 73 mm Hg 025 Heart Rate 61 /min 03/05/2025 Respiratory Rate 18 /min 03/05/2025 Oximetry 98 % 03/05/2025 Weight-kg 83.33 kg 03/05/2025 Sary Stafford 03/05/2025 0 7:15:23 AM EDT > Encounters Encounter Location Date Provider Diagnosis [facility] [address] [facility] [place] [id number] 03/05/2025 Kayla Terrence Tremor of left hand R25.1 Assessments Encounter Date Diagnosis (ICD Code) Assessment Notes Treatment Notes Treatment Clinical Notes Section Notes 03/05/2025 Tremor of left hand (ICD-10 - R25.1) differentials considered but not limited to medication side effects, essential tremors, parkinsons. Advise pt to contact his psychiatrist to discuss if aripiprazole can be causing it. I will also refer to neurologist for further evaluation. I will also get basic labs to rule out metabolic causes. Pt agrees with the plan. Plan Of Treatment Treatment Notes Assessment Notes Tremor of left hand differentials consid ered but not limited to medication side effects, essential tremors, parkinsons. Advise pt to contact his psychiatrist to discuss if aripiprazole can be causing it. I will also refer to neurologist for further evaluation. I will also get basic labs to rule out metabolic causes. Pt agrees with the plan. Referrals Referral Date Details 03/05/2025 03[facility]20[facility] Next Appt Details Follow Up: 4 Weeks, Reason: hand tembling with Guillermina Provider Name:Guillermina Frazier , 03/12/2025 10:30:00 AM, [address] [place], [place], [id number], Provider Name:Guillermina Frazier , 04/04/2025 08:15:00 AM, [address], [place], [id number], Progress Notes * Elli LINDSEY LDOB: 6 (79 yo F)Acc No.[id number]:03/05/2025 Medical Note Patient: Elli LEUNG Provider: Jose Luis Ocampo MD :1945 A ge:79 Y S ex:Female Date:03/05/2025 Address:[address] [place], [place] [id number] Pcp:Guillermina Frazier Subjective: * Chief Complaints: * H and trembling (recently started) * HPI: I nterim History: Left hand started trembling around a month ago, gradually getting worse. She denies pain or numbness. It is constant and it is difficult for her to hold cups or plates. Never had issues like this in the past. she feels the urge to move. When picking up plate or coffee cup she feels trembliong. It get worse through the day when she is tired. She was started on Voltaren pill for arthritis which helped She has been on aripiprazole for 8-9 years. * ROS: N egative except mentioned above in the HPI. * Medical History: * Surgical History: B reast Ca Right 06/2014Eyelid surgery both eyes. January 17 * Hospitalization/Major Diagno stic Procedure: D enies Past Hospitalization * Family History: F ather: , diagnosed with Hypertension, Heart Disease. M other: , diagnosed with Hypertension, Heart Disease. P aternal Grand Father: . P aternal Grand Mother: . M aternal Grand Father: . M aternal Grand Mother: . B rother: , diagnosed with Hypertension, Heart Disease. * Medications: T akingCetirizine HCl 10 MG Tablet 1 tablet Orally Once a day Iron , Notes to Pharmacist: otcSpironolactone 25 MG Tablet 1 tablet Orally Misc Natural Products - Tablet as directed Orally , Notes to Pharmacist: MegaFood Iron Blood BuilderMultivitamin - Tablet 1 tablet Orally Once a day Lansoprazole 15 MG Capsule Delayed Release 1 capsule before a meal Orally Once a day Citalopram Hydrobromide 20 MG Tablet 1 tablet Orally Once a day ARIPiprazole 2 MG Tablet 1 tablet Orally Once a day ALPRAZolam 1 MG Tablet 1 tablet Orally once a day Diclofenac Sodium 75 MG Tablet Delayed Release 1 tablet as needed Orally Twice a day Lisinopril- hydroCHLOROthiazide 20-25 MG Tablet 1 tablet Orally once daily Pravastatin Sodium 20 MG Tablet 1 tablet Orally Once a day hydrOXYzine HCl 25 MG Tablet 1 tablet as needed Orally Once a day Hydrocortisone 1 % Cream 1 application Externally Once a day Taking Cetirizine HCl 10 MG Tablet 1 tablet Orally Once a day Taking Iron , Notes to Pharmacist: otcTaking Spironolactone 25 MG Tablet 1 tablet Orally Taking Mis Natural Products - Tablet as directed Orally , Notes to Pharmacist: MegaFood Iron Blood BuilderTaking Multivitamin - Tablet 1 tablet Orally Once a day Taking Lansoprazole 15 MG Capsule Delayed Release 1 capsule before a meal Orally Once a day Taking Citalopram Hydrobromide 20 MG Tablet 1 tablet Orally Once a day Taking ARIPiprazole 2 MG Tablet 1 tablet Orally Once a day Taking ALPRAZolam 1 MG Tablet 1 tablet Orally once a day Taking Diclofenac Sodium 75 MG Tablet Delayed Release 1 tablet as needed Orally Twice a day Taking Lisinopril-hydroCHLOROthiazide 20-25 MG Tablet 1 tablet Orally once daily Taking Pravastatin Sodium 20 MG Tablet 1 tablet Orally Once a day Taking hydrOXYzine HCl 25 MG Tablet 1 tablet as needed Orally Once a day Taking Hydrocortisone 1 % Cream 1 application Externally Once a day Not-Taking/PRNMotrin predniSONE 20 MG Tablet 1 tablet Orally twice daily As neededLevocetirizine Dihydrochloride 5 MG Tablet 1 tablet in the evening Orally Once a day Colchicine 0.6 MG Tablet TAKE 2 TABLETS BY MOUTH NOW THEN 1 TABLET ONE HOUR LATER - REPEAT IN 3 DAYS IF NEEDED Nitrofurantoin Monohyd Macro 100 MG Capsule 1 capsule with food Orally every 12 hrs Medication List reviewed and reconciled with the patientNot-Taking/PRN Motrin Not-Taking/PRN predniSONE 20 MG Tablet 1 tablet Orally twice daily As neededNot-Taking/PRN Levocetirizine Dihydrochloride 5 MG Tablet 1 tablet in the evening Orally Once a day Not-Taking/PRN Colchicine 0.6 MG Tablet TAKE 2 TABLETS BY MOUTH NOW THEN 1 TABLET ONE HOUR LATER - REPEAT IN 3 DAYS IF NEEDED Not-Taking/PRN Nitrofurantoin Monohyd Macro 100 MG Capsule 1 capsule with food Orally every 12 hrs Medication List reviewed and reconciled with the patient * Allergies: N .K.D.A.no[Allergies Verified] Objective: * Vitals: T emp:97.1F, Wt:183.7lbs, Ht: 60 in, BMI: 35.87 Index, BP:110/73mm Hg, HR:61/min, RR:18/min, Pain scale: 0 1-10, Oxygen sat %:98%, Wt-k.33 kg, Body Surface Area: 1.88. Sary Stafford 03/05/2025 07:15:23 AM EDT >. * Examination: G eneral Examination: G eneral appearance: alert, pleasant, well-nourished and in no acute distress. Head: normocephalic, atraumatic. Eyes: pupils equal, round, reactive to light and accommodation. Skin: skin is warm and dry, with no rashes, good skin turgor and normal hair distribution. Heart: regular rate and rhythm without murmurs, gallops, clicks or rubs. Lungs: clear to auscultation bilaterally, with good air movement and no rales, rhonchi or wheezes. Hand: right hand no concerns. LEft hand tremors noticed at rest. mildly worse with movement. finger nose test normal, no cerebellar signs Psych: alert and oriented x 3 , cooperative with exam , normal affect / mood , speech is clear and coherent. C QM Exceptions: Currently taking Aspirin: A spirin Use: N o Assessment: * Assessment: 1. T remor of left hand - R25.1 (Primary) Plan: * Treatment: * Procedure Codes: 3 078F HTN DIAST BP < 756197P HTN SYST BP < [id number] [facility] visit, established patient * Follow Up: 4 Weeks (Reason: hand tembling with Guillermina) * Billing Information: * Visit Code: 43712 Office Visit Est 20-29 minutes. * Procedure Codes: 3078F HTN DIAST BP < 80. 3074F HTN SYST BP < 130. G0467 [facility] visit, established patient. * Sign off status: Completed true * Provider: Jose Luis Ocampo MD Date: 0 03/05/2025 Generated for Elvia ponce/Elvia/Keshaitting on: 0 03/08/2025 10:37 AM EDT History and Physical Notes * HPI (History of Present Illness) Category Sub-Category Detail Notes Category Not es Interim History Left hand started trembling around a month ago, gradually getting worse. She denies pain or numbness. It is constant and it is difficult for her to hold cups or plates. Never had issues like this in the past. she feels the urge to move. When picking up plate or coffee cup she feels trembliong. It get worse through the day when she is tired. She was started on Voltaren pill for arthritis which helped She has been on aripiprazole for 8-9 years Examination Category Sub-Category Detail Notes Category Not es General Examination General appearance: alert, pleasant, well-nourished and in no acute distress. Head: normocephalic, atraumatic. Eyes: pupils equal, round, reactive to light and accommodation. Skin: skin is warm and dry, with no rashes, good skin turgor and normal hair distribution. Heart: regular rate and rhythm without murmurs, gallops, clicks or rubs. Lungs: clear to auscultation bilaterally, with good air movement and no rales, rhonchi or wheezes. Hand: right hand no concerns. LEft hand tremors noticed at rest. mildly worse with movement. finger nose test normal, no cerebellar signs Psych: alert and oriented x 3 , cooperative with exam , normal affect / mood , speech is clear and coherent. CQM Exceptions Currently taking Aspirin: Aspirin Use:: No Consultation Request Notes Referral Date Referring Provider Referred Provider Not jose l 03/05/2025 Kayla Ocampo ed Neurology, new onset, eval and manage
--- OUTSIDE RECORDS SUMMARY | 2025-03-06 08:16 | XMS_ITS ---
Author Organization [facility] vices Address [address] [place], [place] [id number] Care Team Providers Care Playroom Attendant Name Role Phone Guillermina Frazier Primary Care Provider REASON FOR VISIT pt at ER Medications Medication SIG (Take, Route, Frequency, Duration) Notes Start Date End Date Status Multivitamin - 1 tablet Orally Once a day Active Lansoprazole 15 MG 1 capsule before a meal Orally Once a day Active Citalopram Hydrobromide 20 MG 1 tablet Orally Once a day Active ARIPiprazole 2 MG 1 tablet Orally Once a day Active ALPRAZolam 1 MG 1 tablet Orally once a day Active Misc Natural Products - as directed Orally MegaFood Iron Blood Builder Active Nitrofurantoin Monohyd Macro 100 MG 1 capsule with food Orally every 12 hrs; Duration: 5 days 04/11/2024 Not-Taking Cetirizine HCl 10 MG 1 tablet Orally Once a day Active Iron otc Active Spironolactone 25 MG 1 tablet Orally Active predniSONE 20 MG 1 tablet Orally twice daily; Duration: 7 days As needed 06/08/2024 Not-Taking Levocetirizine Dihydrochloride 5 MG 1 tablet in the evening Orally Once a day Not-Taking Colchicine 0.6 MG TAKE 2 TABLETS BY MOUTH NOW THEN 1 TABLET ONE HOUR LATER - REPEAT IN 3 DAYS IF NEEDED; Duration: 3 Not-Taking Hydrocortisone 1 % 1 application Externally Once a day; Duration: 14 days 02/01/2025 Active Motrin Not-Taking Diclofenac Sodium 75 MG 1 tablet as needed Orally Twice a day; Duration: 30 days 01/29/2025 Active Lisinopril-hydroCHLORO thiazide 20-25 MG 1 tablet Orally once daily; Duration: 90 days Active Pravastatin Sodium 20 MG 1 tablet Orally Once a day; Duration: 90 days Active hydrOXYzine HCl 25 MG 1 tablet as needed Orally Once a day; Duration: 14 days 02/01/2025 Active Social History Sex Assigned At : Social History Observation Description Sex Assigned At Female Encounters Encounter Location Date Provider Diagnosis Main [address] [place] [id number] 03/06/2025 Guillermina Rodriguezland Plan Of Treatment Next Appt Details Provider Name:Guillermina Karin , 03/12/2025 10:30:00 AM, [address] [place], [id number], Provider Name:Guillermina Rodriguezland , 04/04/2025 08:15:00 AM, [address] [place], [id number], Progress Notes * Elli LINDSEY LDOB: 6 (79 yo F)Acc No.[id number]:03/06/2025 Patient: Elli LEUNG :1945 A ge:79 Y S ex:Female Address:[address] [place] [id number] Subjective: * Chief Complaints: * p t at ER * Medical History: * Surgical History: * Hospitalization/Major Diagno stic Procedure: * Medications: T akingCetirizine HCl 10 MG [...] 25 MG Tablet 1 tablet Orally Taking Misc Natural Products - Tablet as directed [...] capsule with food Orally every 12 hrs Not- Taking/PRN Motrin Not-Taking/PRN predniSONE 20 MG Tablet 1 tablet Orally twice daily As neededNot-Taking/PRN Levocetirizine Dihydrochloride 5 MG Tablet 1 tablet in the evening Orally Once a day Not-Taking/PRN Colchicine 0.6 MG Tablet TAKE 2 TABLETS BY MOUTH NOW THEN 1 TABLET ONE HOUR LATER - REPEAT IN 3 DAYS IF NEEDED Not- Taking/PRN Nitrofurantoin Monohyd Macro 100 MG Capsule 1 capsule with food Orally every 12 hrs Objective: * Vitals: * Physical Examination: Assessment: Plan: * Treatment: * Procedure Codes: * true * Date: Generated for Elvia ponce/Elvia/Steve on: 0 03/08/2025 10:36 AM EDT
--- OUTSIDE RECORDS SUMMARY | 2025-03-08 10:37 | XMS_ITS | Patient Health Record ---
Author Organization [facility] vices Address [address] [place], [place] [id number] Care Team Providers Care Grappler Name Role Phone Guillermina Frazier Primary Care Provider [phone] Leonides Diane Unavailable [phone] Chanell Chen Unavailable [phone] Terrence, Kayla Unavailable [phone] Allergies No Known Allergies Results Component Value Reference Range Notes Potassium Reviewed date:03/07/2025 09:32:01 AM Interpretation: Performing Lab: Notes/Report: [facility] , Potassium 5.7 3.5-5.1 mmol/L Performing Lab: see note ML - [facility] Basic Metabolic Panel Reviewed date:03/07/2025 09:31:56 AM Interpretation: Performing Lab: Notes/Report: [facility] , Sodium 138 136-145 mmol/L Potassium 5.7 3.5-5.1 mmol/L Chloride 109 98-107 mmol/L Carbon Dioxide 22.5 21.0-32.0 mmol/L Anion Gap 12.2 Glucose 88 74-106 mg/dL Blood Urea Nitrogen 24.0 7.0-18.0 mg/dL Creatinine 1.09 0.55-1.02 mg/dL Estimated GFR ( Suzanne 59 >=60 mL/min/1.73m 2 Estimated GFR (Non- Chanel 48 >=60 mL/min/1.73m 2 BUN Creatinine Ratio 22.0 Calcium 8.6 8.5-10.1 mg/dL Performing Lab: see note ML - [facility] Potassium Reviewed date:03/08/2025 08:03:13 AM Interpretation: Performing Lab: Notes/Report: [facility] , Potassium 5.2 3.5-5.1 mmol/L Performing Lab: see note ML - [facility] LB Magnesium Reviewed date:03/07/2025 09:31:56 AM Interpretation: Performing Lab: Notes/Report: [facility] , Magnesium 1.6 1.8-2.4 mg/dL Performing Lab: see note ML - [facility] Basic Metabolic Panel Reviewed date:03/08/2025 08:03:25 AM Interpretation: Performing Lab: Notes/Report: [facility] , Sodium 139 136-145 mmol/L Potassium 5.3 3.5-5.1 mmol/L Chloride 107 98-107 mmol/L Carbon Dioxide 24.4 21.0-32.0 mmol/L Anion Gap 12.9 Glucose 92 74-106 mg/dL Blood Urea Nitrogen 21.0 7.0-18.0 mg/dL Creatinine 1.07 0.55-1.02 mg/dL Estimated GFR ( Suzanne 60 >=60 mL/min/1.73m 2 Estimated GFR (Non- Chanel 49 >=60 mL/min/1.73m 2 BUN Creatinine Ratio 19.6 Calcium 9.1 8.5-10.1 mg/dL Performing Lab: see note ML - [facility] CBC W/AUTO DIFF Reviewed date:02/08/2025 02:15:56 PM Interpretation: Performing Lab: Notes/Report: WBC 5.7 3.6-11.0 THDS/CMM RBC 3.09 3.80-5.20 MILL/CMM HGB 10.4 11.9-16.0 G/DL HCT 31.9 35-47 % MCV 103 75-100 fL MCH 33.7 26.0-33.0 pg MCHC 32.6 31.0-36.0 g/dl RDW 12.1 11.2-14.8 % PLATELET 227 140-440 THOUS/CMM NEUTROPHILS 67.0 45-75 % LYMPHOCYTES 22.5 20-45 % MONOCYTES 6.5 0-13 % EOSINOPHILS 3.5 0-5 % BASOPHILS 0.3 0-2 % IMMATURE GRAN 0.2 0-2 % ABS NEUTROPHILS 3.84 1.9-8.0 K/uL ABS LYMPHOCYTES 1.29 0.9-5.2 K/uL ABS MONOCYTES 0.37 0.1-1.0 K/uL ABS EOSINOPHILS 0.20 0.0-0.80 K/uL ABS BASOPHILS 0.02 0.0-0.2 K/uL ABS IMMATURE GRAN 0.01 0.00-0.06 K/uL UNLESS OTHERWISE INDICATED, ALL TESTING PERFORMED AT: [employer] [address] [place] [address] AUTO DAMAGE ADJUSTER: AZUL GARCIA M.D. CLIA NUMBER [id number] CAP ACCREDITATION AUID [id number] FERRITIN Reviewed date:02/08/2025 02:15:56 PM Interpretation: Performing Lab: Notes/Report: FERRITIN 51 13-200 ng/mL IRON BINDING CAPACITY (IBC) IRON AND % SATURATION Reviewed date:02/08/2025 02:15:56 PM Interpretation: Performing Lab: Notes/Report: UNSATURATED IBC 249 112-347 ug/dL IRON BINDING 345 250-450 ug/dL IRON SATURATION 28 13-45 % IRON 96 37-145 ug/dL COMPREHENSIVE METABOLIC PANE L WITH GFR Reviewed [...] Lab: Notes/Report: TSH 1.99 0.270-4.200 uIU/mL The [place] [employer] (MARTIN) recommends the following reference ranges for TSH levels during : First trimester: 0.1 to 2.5 mIU/L Second trimester: 0.2 to 3.0 mIU/L Third trimester: 0.3 to 3.0 mIU/L UNLESS OTHERWISE INDICATED, ALL TESTING PERFORMED AT: [employer]. [address] [place] [address] AUTO DAMAGE ADJUSTER: AZUL GARCIA M.D. CLIA NUMBER [id number] CAP ACCREDITATION AUID [id number] URINALYSIS - REFLEX CULTURE/ SENS Reviewed date:04/17/2024 02:37:00 PM Interpretation: Performing Lab: Notes/Report: for a number of analytes. Please review reference intervals carefully. Changes in testing location may be associated with reference range changes CLIA NUMBER [id number] CAP ACCREDITATION AUID [id number] AUTO DAMAGE ADJUSTER: AZUL GARCIA M.D. [employer]. [address] [place] [address] UNLESS OTHERWISE INDICATED, ALL TESTING PERFORMED AT: PH 7.0 5.0-8.0 SP GRAVITY 1.014 1.005-1.030 [...] Nitrite + Ph 6.5 Protein - Specific Kramer 1.015 Color yellow Appearance cloudy Complete Blood Count Auto Di ff Reviewed date:03/07/2025 09:31:56 AM Interpretation: Performing Lab: Notes/Report: [facility] , White Blood Count 5.3 4.0-11.0 10 3/uL Red Blood Count 2.94 4.20-5.40 10 6/uL Hemoglobin 9.9 12.0-16.0 g/dL Hematocrit 30.4 36.0-48.0 % Mean Corpuscular Volume 103.4 81.0-99.0 fL Mean Corpuscular Hemoglobin 33.7 26.7-34.0 pg Mean Corpuscular HGB Conc 32.6 29.9-35.2 g/dL Red Cell Distribution Width 13.0 11.0-15.0 % Platelet Count 215 150-450 10 3/uL Mean Platelet Volume 9.5 9.5-13.5 fL Neutrophils Percent Auto 60.3 43.0-75.0 % Lymphocytes Percent Auto 26.3 20.5-60.0 % Monocytes Percent Auto 8.1 1.7-12.0 % Eosinophils Percent Auto 4.7 0.9-7.0 % Basophils Percent Auto 0.6 0.2-2.0 % Immature Granulocytes Pct Auto 0.0 0.0-0.5 % Neutrophils Absolute Auto 3.2 1.4-6.5 10 3/uL Lymphocytes Absolute Auto 1.4 1.2-3.8 10 3/uL Monocytes Absolute Auto 0.4 0.3-0.8 10 3/uL Eosinophils Absolute Auto 0.3 0.0-0.7 10 3/uL Basophils Absolute Auto 0.0 0.0-0.1 10 3/uL Immature Granulocytes Abs Auto 0.00 0.00-0.03 10 3/uL Performing Lab: see note ML - [facility] Potassium Reviewed date:03/07/2025 09:31:56 AM Interpretation: Performing Lab: Notes/Report: [facility] , Potassium 4.9 3.5-5.1 mmol/L Performing Lab: see note ML - [facility] ECG 12 lead Reviewed date:03/06/2025 01:35:15 PM Interpretation: Performing Lab: Notes/Report: Source Facility: [facility] [place] [address] [place] [address] Electrocardiograph Report Signed Patient: ELLI LINDSEY MR#: [id number] : 1945 Acct:[id number] Age/Sex: 79 / F ADM Date: 03/06/25 Loc: ER Attending Dr: Ordering Physician: Ranjana Delgadillo Date of Service: 03/06/25 Procedure(s): ECG 12 lead Accession Number(s): [id number] cc: [facility] Test Date: 2025-03-06 Pat Name: ELLI LINDSEY Department: Room: - Gender: Female 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 Signed By: 03/06/25 1228 DD/ 1043 TD/TT: Ward Maid: Comprehensive Metabolic Noah robbins Reviewed date:03/06/2025 01:34:57 PM Interpretation: Performing Lab: Notes/Report: [facility] , Sodium 137 136-145 mmol/L Potassium 6.8 3.5-5.1 mmol/L RESULTS HERNANDEZ D TO DR. RANJANA DELGADILLO at 1157 Chloride 106 98-107 mmol/L Carbon Dioxide 21.0 21.0-32.0 mmol/L Anion Gap 16.8 Glucose 92 74-106 mg/dL Blood Urea Nitrogen 33.0 7.0-18.0 mg/dL Creatinine 1.28 0.55-1.02 mg/dL Estimated GFR ( Suzanne 49 >=60 mL/min/1.73m 2 Estimated GFR (Non- Chanel 40 >=60 mL/min/1.73m 2 BUN Creatinine Ratio 25.8 Calcium 8.8 8.5-10.1 mg/dL Bilirubin Total 0.2 0.2-1.0 mg/dL Aspartate Amino Transferase 17 15-37 U/L Alanine Aminotransferase 23 14-59 U/L Alkaline Phosphatase 79 46-116 U/L Total Protein 7.1 6.4-8.2 g/dL Albumin Level 3.7 3.4-5.0 g/dL Globulin 3.4 Albumin Globulin Ratio 1.1 Performing Lab: see note ML - [facility] LB Complete Blood Count Auto Di ff Reviewed date:03/06/2025 01:35:04 PM Interpretation: Performing Lab: Notes/Report: [facility] , White Blood Count 4.8 4.0-11.0 10 3/uL Red Blood Count 2.80 4.20-5.40 10 6/uL Hemoglobin 9.5 12.0-16.0 g/dL Hematocrit 28.7 36.0-48.0 % Mean Corpuscular Volume 102.5 81.0-99.0 fL Mean Corpuscular Hemoglobin 33.9 26.7-34.0 pg Mean Corpuscular HGB Conc 33.1 29.9-35.2 g/dL Red Cell Distribution Width 12.9 11.0-15.0 % Platelet Count 208 150-450 10 3/uL Mean Platelet Volume 9.5 9.5-13.5 fL Neutrophils Percent Auto 70.8 43.0-75.0 % Lymphocytes Percent Auto 18.4 20.5-60.0 % Monocytes Percent Auto 7.7 1.7-12.0 % Eosinophils Percent Auto 2.5 0.9-7.0 % Basophils Percent Auto 0.6 0.2-2.0 % Immature Granulocytes Pct Auto 0.0 0.0-0.5 % Neutrophils Absolute Auto 3.4 1.4-6.5 10 3/uL Lymphocytes Absolute Auto 0.9 1.2-3.8 10 3/uL Monocytes Absolute Auto 0.4 0.3-0.8 10 3/uL Eosinophils Absolute Auto 0.1 0.0-0.7 10 3/uL Basophils Absolute Auto 0.0 0.0-0.1 10 3/uL Immature Granulocytes Abs Auto 0.00 0.00-0.03 10 3/uL Performing Lab: see note ML - [facility] LB MM tomosynthesis screening B I Reviewed date:03/04/2025 10:11:48 PM Interpretation: Performing Lab: Notes/Report: Source Facility: [facility]-[address] [place] [address] [place] [address] Mammography Report Signed Patient: ELLI LINDSEY MR#: [id number] : 1945 Acct:[id number] Age/Sex: 79 / F ADM Date: 03/01/25 Loc: MAMMO Attending Dr: Janelle Pickett M.D. Ordering Physician: Janelle Pickett M.D. Results: Date of Service: 03/01/25 Follow Up: Procedure(s): MM tomosynthesis screening BI Accession Number(s): [id number] cc: Janelle Pickett M.D.; Guillermina Frazier NP Patient Name: ELLI LINDSEY MR#: [id number] : 1945 Exam Date: 03/01/2025 Ordering Doctor: JANELLE PICKETT RADIOLOGY REPORT PROCEDURE: MM TOMOSYNTHESIS SCREENING BI COMPARISON: MM TOMOSYNTHESIS SCREENING BI, 02/28/2024. MM TOMOSYNTHESIS SCREENING BI, 02/24/2023. MG MAMM SCREEN 3D GONZALEZ CAD, 03/05/2022. MG MAMM GONZALEZ DIAG W CAD DIG, 11/23/2018. INDICATIONS: Screening Calculator Name NCI Breast Cancer Risk Assessment Tool 5 Year Breast Cancer Risk n/a% Lifetime Breast Cancer Risk n/a% Personal Breast Cancer Yes, 2013 Personal Ovarian Cancer No Treatments lumpectomy, radiation and chemotherapy Family Cancers Grandmother-paternal with breast cancer at age 76; Father with unknown cancer at age 72. LOCATION: [facility] BREAST COMPOSITION: There are scattered areas of fibroglandular density. FINDINGS: RIGHT BREAST: No significant suspicious finding. LEFT BREAST: No significant suspicious finding. DIAGNOSTIC CATEGORY 1--NEGATIVE. RECOMMENDATIONS: ROUTINE MAMMOGRAM AND CLINICAL EVALUATION IN 12 MONTHS. Dictated by: Kennedy Tiwari MD on 03/01/2025 at 12:35 Approved by: Kennedy Tiwari MD on 03/01/2025 at 12:45 Dictated By: Kennedy Tiwari M.D. Signed By: 03/01/25 1246 DD/ 1245 TD/TT: Ward Maid: Rafa robbins Reviewed date:08/10/2024 10:34:45 PM Interpretation: Performing Lab: Notes/Report: , [facility] Sodium 140 136-145 mmol/L Potassium [...] 1.2 Performing Lab: see note ML - [facility] Lipid Panel Reviewed date:08/10/2024 10:34:45 PM Interpretation: Performing Lab: Notes/Report: [facility] , Triglycerides 131 <=150 mg/dL Cholesterol 137 [...] RISK Performing Lab: see note ML - [facility] URINE CULTURE Reviewed date:04/17/2024 02:36:46 PM Interpretation: [...] effective clinically and will not be reported. Reason For Referral Reason Please eval & treat Diagnosis 1 Stage 3b chronic kid joanna disease (N18.32) Referral Organization Main Referring Provider First Name Guillermina Referring Provider Last Name [facility] Referred Provider [facility] Referred Provider [...] at , so we can _update our records.Francisco Servando 10/12/2024 11:23:53 AM >{ {TOFIRSTNAME}} This is [facility] following up on an outstanding referral that was ordered by your provider. Please call our office at , so we can _update our records. Referral Priority Routine Referral Appointment Date 11/12/2024 Reason new onset, eval and manage Diagnosis 1 Tremor of left hand (R25.1) Referral Organization Main Referring Provider First Name Kayla Referring Provider Last Name Terrence Referring Provider Speciality Internal M edicine Referred Provider [facility] Advanced N eurology Referred Provider Specialty Neurology Referral Priority Routine Medications Medication SIG (Take, Route, Frequency, Duration) Notes Start Date End Date Status Cetirizine HCl 10 MG 1 tablet Orally Once a day Active Iron otc Active Spironolactone 25 MG 1 tablet Orally Active Misc Natural Products - as directed Orally MegaFood Iron Blood Builder Active Multivitamin - 1 tablet Orally Once a day Active predniSONE 20 MG 1 tablet Orally twice daily; Duration: 7 days As needed 06/08/2024 Not-Taking Lansoprazole 15 MG 1 capsule before a meal Orally Once a day Active Levocetirizine Dihydrochloride 5 MG 1 tablet in the evening Orally Once a day Not-Taking Citalopram Hydrobromide 20 MG 1 tablet Orally Once a day Active Colchicine 0.6 MG TAKE 2 TABLETS BY MOUTH NOW THEN 1 TABLET ONE HOUR LATER - REPEAT IN 3 DAYS IF NEEDED; Duration: 3 Not-Taking ARIPiprazole 2 MG 1 tablet Orally Once a day Active Nitrofurantoin Monohyd Macro 100 MG 1 capsule with food Orally every 12 hrs; Duration: 5 days 04/11/2024 Not-Taking ALPRAZolam 1 MG 1 tablet Orally once a day Active Diclofenac Sodium 75 MG 1 tablet as needed Orally Twice a day; Duration: 30 days 01/29/2025 Active Lisinopril-hydroCHLORO thiazide 20-25 MG 1 tablet Orally once daily; Duration: 90 days Active Pravastatin Sodium 20 MG 1 tablet Orally Once a day; Duration: 90 days Active hydrOXYzine HCl 25 MG 1 tablet as needed Orally Once a day; Duration: 14 days 02/01/2025 Active Hydrocortisone 1 % 1 application Externally Once a day; Duration: 14 days 02/01/2025 Active Motrin Not-Taking Immunizations Vaccine Route Administration Date Status Comme nts *Pneumococcal conjugate PCV 13-VFC Unknown 10/09/2015 Administered *Pneumococcal polysaccharide BLE10-Mhorrlt Unknown 02/26/1999 Administered *Pneumococcal polysaccharide ZJG90-Jldzoer Unknown 07/07/2013 Administered *Pneumococcal polysaccharide HCX41-Lujcbxr Unknown 08/26/2017 Administered *Tdap (Adacel)-Private IM Intramuscular [...] W/U Status Risk Notes Problem Mixed hyperlipidemia (774533781) Mixed hyperlipidemia (E78.2) Active confirmed Problem Osteoarthritis (977970526) Osteoarthritis, unspecified osteoarthritis type, unspecified site (M19.90) Active confirmed Problem Iron deficiency anemia (53810489) Iron deficiency anemia, unspecified iron deficiency anemia type (D50.9) Active confirmed Problem Osteoarthritis (314054272) Osteoarthritis (M19.90) Active confirmed Problem Diverticulitis of colon (425109085) Acute diverticulitis (K57.92) Active confirmed Problem Chronic kidney disease stage 3B (disorder) (434401990) Stage 3b chronic kidney disease (N18.32) Active confirmed Problem Gout (60629482) Acute gout of right foot, unspecified cause (M10.9) Active confirmed Problem Essential hypertension (97174211) Essential hypertension (I10) Active confirmed Vital Signs Heart Rate 61 /min 03/05/2025 Sary Stafford 03/05/2025 07:15:23 AM EDT > Temperature 97.1 degrees Fahrenheit 03/05/2025 Sary Chicas 03/05/2025 07:15:23 AM EDT > Respiratory Rate 18 /min 03/05/2025 Noah Stafford 03/05/2025 07:15:23 AM EDT > Oximetry 98 % 03/05/2025 Sary Stafford 03/05/2025 07:15:23 AM EDT > Blood pressure diastolic 73 mm Hg 03/05/2025 Sary Laird 03/05/2025 07:15:23 AM EDT > Weight-kg 83.33 kg 03/05/2025 Sary Stafford 03/05/2025 07:15:23 AM EDT > Height 60 in 03/05/2025 Sary Stafford 03/05/2025 07:15:23 AM EDT > Blood pressure systolic 110 mm Hg 03/05/2025 Sary Chicas 03/05/2025 07:15:23 AM EDT > Weight 183.7 lbs 03/05/2025 Sary Stafford 03/05/2025 07:15:23 AM EDT > BMI 35.87 kg/m2 03/05/2025 Sary Stafford 03/05/2025 07:15:23 AM EDT > Encounters Encounter Location Date Provider Diagnosis Main [address] [place], [place] [id number] 04/11/2024 Chanell Gustavo Dysuria R30.0 and Acute cystitis with hematuria N30.01 Main [address] [place] [id number] 06/08/2024 Guillermina Frazier COVID-19 U07.1 ; O besity, Class II, BMI 35-39.9 E66.812 and BMI 35.0-35.9,adult Z68.35 Main [address] [place], [place] [id number] 07/25/2024 [facility] Essential hyperten isauro I10 ; Obesity, Class II, BMI 35-39.9 E66.812 and BMI 35.0-35.9,adult Z68.35 Main [address] [place], [place] [id number] 08/28/2024 [facility] Essential hyperten isauro I10 ; Epiploic appendagitis K63.89 ; Obesity, Class II, BMI 35-39.9 E66.812 and BMI 35.0-35.9,adult Z68.35 [facility] [address] [facility] [place] [place] [id number] 01/29/2025 [facility] Osteoarthritis, un specified osteoarthritis type, unspecified site M19.90 ; Essential hypertension I10 ; Mixed hyperlipidemia E78.2 ; Obesity, Class II, BMI 35-39.9 E66.812 and BMI 35.0-35.9,adult Z68.35 Main [address] [facility] [place] [id number] 02/01/2025 [facility] Pruritus L29.9 ; O besity, Class II, BMI 35-39.9 E66.812 and BMI 35.0-35.9,adult Z68.35 Main [address] [facility] [id number] 02/07/2025 [facility] Iron deficiency an emia, unspecified iron deficiency anemia type D50.9 ; Acute diverticulitis K57.92 ; BMI 36.0-36.9,adult Z68.36 and Obesity, Class II, BMI 35-39.9 E66.812 Main [address] [facility] [id number] 03/05/2025 Kayla Terrence Tremor of left guerrero d R25.1 Main [address] [facility] [place] [id number] 03/08/2025 [facility] Main [address] [facility] [place] [id number] 03/27/2024 Chanell Gustavo Essential hyperten isauro I10 Main [address] [place], [place] [id number] 06/06/2024 Chanell Gustavo [facility] [address] [facility] [facility] [place] [id number] 06/08/2024 [facility] Main [address] [place], [place] [id number] 07/10/2024 Chanell Gustavo Essential hyperten isauro I10 Main [address] [place], [place] [id number] 08/10/2024 [facility] Stage 3b chronic k idney disease N18.[address] [place], [place] [id number] 08/29/2024 [facility] Main [address] [place], [place] [id number] 09/13/2024 [facility] Essential hyperten isauro I10 Main [address] [place], [place] [id number] 11/14/2024 Diane Leonides Main [address] [place], [place] [id number] 02/06/2025 [facility] Main [address] [place], [place] [id number] 02/08/2025 [facility] Main [address] [place], [place] [id number] 03/06/2025 Kayla Terrence Main [address] [place], [place] [id number] 03/06/2025 [facility] Assessments Encounter Date Diagnosis (ICD Code) Assessment [...] metabolic causes. Pt agrees with the plan. 02/07/2025 Iron deficiency anemia, unspecified iron deficiency anemia type (ICD-10 - D50.9) Pt has anemia, ordered labs to review w/ pt recent bleeding 02/07/2025 Acute diverticulitis (ICD-10 - K57.92) Informed pt she has Diverticulosis, having epiode of Diverticulitis after reviewing recent colonoscopy Pt encouraged to decrease inflammatory foods such as acidic, spicy, and citrus foods. Pt reported to eating a lot of tomatoes, had some prior to appt today. Encouraged to go to ER if worsens, PVU F/U 6 months or PRN 02/01/2025 Pruritus (ICD-10 - L29.9) No skin rash noted. Pt and informed to keep an eye on pt skin, as treatment must be initiated for shingles within 72 hours to be most effective; Valtrex 1g TID 7D Pt encouraged to begin Shingrix series when able, to prevent future outbreaks F/U 6 months or PRN 02/01/2025 Obesity, Class II, BMI 35-39.9 (ICD-10 - E66.812) 07/25/2024 Obesity, Class II, BMI 35-39.9 (ICD-10 [...] OTC 09/13/2024 Essential hypertension (ICD-10 - I10) 01/29/2025 Essential hypertension (ICD-10 - I10) HTN stable. Will continue current medications. Encouraged healthy diet and exercise. F/u 6 months & PRN 01/29/2025 Osteoarthritis, unspecified osteoarthritis type, unspecified site (ICD-10 - M19.90) RX sent for OA at this time F/U 6 months or PRN 03/27/2024 Essential hypertension (ICD-10 - I10) 04/11/2024 [...] obtain labs prior to appt b 07/25/2024 BMI 35.0-35.9,adult (ICD-10 - Z68.35) b 06/08/2024 BMI 35.0-35.9,adult (ICD-10 - Z68.35) 01/29/2025 Mixed hyperlipidemia (ICD-10 - E78.2) HLD stable. Will continue current medications. Encouraged healthy diet and exercise. F/u 6 months & PRN 02/07/2025 BMI 36.0-36.9,adult (ICD-10 - Z68.36) 08/28/2024 Obesity, Class II, BMI 35-39.9 (ICD-10 - E66.812) 02/01/2025 BMI 35.0-35.9,adult (ICD-10 - Z68.35) 02/07/2025 Obesity, Class II, BMI 35-39.9 (ICD-10 - E66.812) 01/29/2025 Obesity, Class II, BMI 35-39.9 (ICD-10 - E66.812) 08/28/2024 BMI 35.0-35.9,adult (ICD-10 - Z68.35) 01/29/2025 BMI 35.0-35.9,adult (ICD-10 - Z68.35) Plan Of Treatment Future Test Test Name Order Date LIPID PANEL WITH REFLEX TO DIRECT LDL Next Appt Details Provider Name:Guillermina Frazier , 03/12/2025 10:30:00 AM, [address] [place], [place], [id number], Provider Name:Guillermina Frazier , 04/04/2025 08:15:00 AM, [address], [id number], Insurance Providers Payer Name Payer Address Payer Phone Subscriber Number Group Number Insured Name Patient Relationship to Insured Coverage Start Date Coverage End Date [facility] Medicare [address] [address] [place] [phone] [id number] Elli Lindsey Self - patient is the insured 4 [...] History Surgery Date(Month/Year) Breast Ca Right 06/2014 Eyelid surgery both eyes. January 17
--- OUTSIDE RECORDS SUMMARY | 2025-03-08 10:37 | XMS_ITS | Clinical Summary ---
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
--- OUTSIDE RECORDS SUMMARY | 2025-03-08 10:38 | XMS_ITS | Patient Health Record ---
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 Name Role Phone Adi Sal NP Primary Care Provider Unavailab Morteza Villatoro Unavailable [phone] Janelle Pickett Unavailable [phone] Allergies Allergen (clinical drug ingredient) Drug/Non Drug Allergy documented on EMR Reaction Allergy Type Onset Date Status paper tape (uncoded) Unknown Allergy Active Results Component Value Reference Range Notes IRON AND TIBC (Not yet revie wed by provider) Interpretation: Performing Lab: Notes/Report: [facility] , Iron 96.0 50.0-170.0 ug/dL Total Iron Binding Capacity 354.0 250.0-450.0 u g/dL Percent Iron Saturation 27.1 Performing Lab: see note ML - [facility] LB Vitamin B12 (Not yet reviewe d by provider) Interpretation: Performing Lab: Notes/Report: [facility] , Vitamin B12 967 110-2079 pg/mL Performed at: [facility] [address] [id number] Lawn Service Supervisor: Karson Haque PhD, Phone: [phone] Performing Lab: see note - [facility] LB MAGNESIUM Reviewed date:12/21/2024 12:23:17 PM Interpretation: Performing Lab: Notes/Report: [facility] , Magnesium 1.8 1.8-2.4 mg/dL Performing Lab: see note ML - [facility] LB MICROALB CREAT RATIO RANDOM Reviewed date:12/21/2024 10:22:52 AM Interpretation: Performing Lab: Notes/Report: [facility] , Microalbumin Urine Random <1.3 <=30.0 mg/dL Creatinine Urine Random 96.88 20.00-300.00 mg/d L Performing Lab: see note ML - [facility] LB RENAL FUNCTION PANEL Reviewed date:12/21/2024 12:22:59 PM Interpretation: Performing Lab: Notes/Report: [facility] , Sodium 141 136-145 mmol/L Potassium 5.1 [...] g/dL Performing Lab: see note ML - [facility] LB UA RANDOM W or MICROSCOPIC Reviewed date:12/21/2024 12:22:55 PM Interpretation: Performing Lab: Notes/Report: [facility] , Color Urine LT. YELLOW YELLOW Clarity Urine CLEAR CLEAR Specific Browder Urine 1.020 1.005-1.025 pH Urine 6.0 5.0-9.0 [...] #/LPF Performing Lab: see note ML - [facility] LB URIC ACID SERUM Reviewed date:12/21/2024 10:22:42 AM Interpretation: Performing Lab: Notes/Report: [facility] , Uric Acid 8.6 2.6-6.0 mg/dL Performing Lab: see note ML - [facility] LB CBC no Diff (Hemogram) Reviewed date:12/19/2024 08:43:42 AM Interpretation: Performing Lab: Notes/Report: [facility] , White Blood Count 5.7 4.0-11.0 10 [...] fL Performing Lab: see note ML - [facility] LB VITAMIN D 25 [place] (Not yet rev iewed by provider) Interpretation: Performing Lab: Notes/Report: [facility] , Vitamin D 62.2 <20 ng/mL Vit D deficient 20-<30 ng/mL Vit D insufficient 30-100 ng/mL Vit D sufficient >100 ng/mL Potential Toxicity Performing Lab: see note ML - [facility] LB FOLATE (Not yet reviewed by provider) Interpretation: Performing Lab: Notes/Report: [facility] , Folate 35.00 8.60-58.90 ng/mL Performing Lab: see note ML - [facility] LB FERRITIN (Not yet reviewed b y provider) Interpretation: Performing Lab: Notes/Report: [facility] , Ferritin 41.0 8.0-252.0 ng/mL Performing Lab: see note ML - [facility] LB MM tomosynthesis screening B I (Not yet reviewed by provider) Interpretation: Performing Lab: Notes/Report: Source Facility: [facility]-[address] [place] [address] [place] [address] Mammography Report Signed Patient: ELLI LINDSEY MR#: [id number] : 1945 Acct:[id number] Age/Sex: 79 / F ADM Date: 03/01/25 Loc: MAMMO Attending Dr: Janelle Pickett M.D. Ordering Physician: Janelle Pickett M.D. Results: Date of Service: 03/01/25 Follow Up: Procedure(s): MM tomosynthesis screening BI Accession Number(s): [id number] cc: Janelle Pickett M.D.; Guillermina Frazier NP Patient Name: ELLI LINDSEY MR#: [id number] : 1945 Exam Date: 03/01/2025 Ordering Doctor: [...] unknown cancer at age 72. 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 No Information Medications Medication SIG (Take, Route, Frequency, Duration) Notes Start Date End Date Status Femara 2.5 mg 1 tablet(s) DAILY; Duration: 30 days 12/18/2014 Not-Taking Fenofibrate Micronized Not-Taking Lisinopril Once a day Not-Takangy ng PARoxetine Mesylate 7.5 MG 1 capsule [...] g Prochlorperazine Maleate 10 mg 1 tablet(s) Q6-8H; Duration: 30 days 05/04/2014 Not-Taking Iron (Ferrous Sulfate) [...] valACYclovir HCl 1 GM 2 tablet Orally BID; Duration: 2 days Not-Taking Aspirin 81 mg DAILY Not-T mirthag Pravastatin Sodium 20 MG 1 tablet Orally Once a day Active Spironolactone 25 MG 1 tablet Orally daily Active ALPRAZolam 1 MG 1 tablet Orally daily Not-Taking Anastrozole 1 mg 1 tablet(s) DAILY; Duration: 90 days Take one tablet daily 09/18/2014 Not-Taking Social History Tobacco Use: Social History Observation Description Date Details (start date - stop date) Never Smoker NA - NA Tobacco Use/Smoking Question Answer Notes Patient is a nonsmoker Problems Problem Type SNOMED Code ICD Code Onset Dates Problem Status W/U Status Risk Notes Problem Iron deficiency anemia (31961952) Iron deficiency anemia, unspecified (D50.9) Active confirmed Problem Personal history of primary malignant neoplasm of breast (991853936) Personal history of malignant neoplasm of breast (Z85.3) Active confirmed Problem Iron deficiency anemia due to chronic blood loss (297036124) Iron deficiency anemia due to chronic blood loss (D50.0) Active confirmed Problem History of radiation therapy (507681572) History of radiation therapy (Z92.3) Active confirmed Problem Diverticular disease of colon (056355262) Sigmoid diverticulosis (K57.30) Active confirmed Problem Disorder of breast (59632579) Hematoma of breast (N64.89) Active confirmed Problem Tortuous colon (04634889749005) Tortuous colon (Q43.8) Active confirmed Problem Personal history of primary malignant neoplasm of breast (478036562) History of cancer of right breast (Z85.3) Active confirmed Problem Essential hypertension (30059056) Asymptomatic hypertension (I10) Active confirmed Problem Atrophic gastritis (71736371) Mild chronic gastritis (K29.50) Active confirmed Problem Chronic kidney disease stage 3A (disorder) (446132718) Chronic kidney disease, stage 3a (N18.31) Active confirmed Problem Chronic kidney disease stage 3B (disorder) (719524160) Chronic kidney disease, stage 3b (N18.32) Active confirmed Vital Signs Blood pressure diastolic 78 mm Hg 12/25/2024 Height 60 in 12/25/2024 Blood pressure systolic 126 mm Hg 12/25/2024 Weight 186.6 lbs 12/25/2024 BMI 36.44 kg/m2 12/25/2024 Encounters Encounter Location Date Provider Diagnosis [place] [facility] [address] [place] [id number] 10/10/2024 Morteza Calles Chronic kidney disease, stage 3b N18.32 [facility] [address] [place] [address] 10/11/2024 Morteza Calles [facility] [address] [place] [address] 10/24/2024 Morteza Calles Anemia, unspecified D64.9 ; Asymptomatic hypertension I10 and Chronic kidney disease, stage 3a N18.31 [facility] [place] [address] [place] [address] 12/25/2024 Morteza Ranker Anemia, unspecified D64.9 ; Chronic kidney disease, stage 3a N18.31 and Asymptomatic hypertension I10 [facility] [address] [place] [address] 09/05/2024 Janelle Pickett Assessments Encounter Date Diagnosis (ICD Code) [...] METB) 01/12/2024 VITAMIN D 25 [place] 09/04/2024 MM tomosynthesis screening BI 03/01/2025 Reticulocyte Pct Auto 01/12/2024 Erythropoietin (EPO), Serum 01/12/2024 Vitamin B12 09/04/2024 MICROALBUMIN w PASTER SUPERVISOR RATIO 10/24/2024 BMP (BASIC MET PANEL) w/eGFR CKD-EPI BMP (BASIC MET PANEL) w/eGFR CKD-EPI CBC WITH DIFF 10/10/2024 Next Appt Details Provider Name:Janelle Pickett , 03/13/2025 09:00:00 AM, [address] [place], [address], Provider Name:Morteza Calles, 06/25/2025 12:00:00 PM, [address] [place], [address], Insurance Providers Payer Name Payer Address Payer Phone Subscriber Number Group Number Insured Name Patient Relationship to Insured Coverage Start Date Coverage End Date [facility] [employer] [address] [address] [place] [address] [id number] Elli Lindsey Self - patient is the insured Medical (General) History Medical History History ICD Code History of arthritis History of glaucoma History of hypertension History of cataract surgery No history of cardiac defibrillator pres ent No history of cardiac pacemaker present History of cancer of right breast Z85.3 Surgical History Surgery Date(Month/Year) History of breast lumpectomy was performed 04/02/2014 right ER positive OR Negative 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
--- OUTSIDE RECORDS SUMMARY | 2025-03-08 10:38 | XMS_ITS | Encounter Summary ---
Author Organization [facility] Address [address] [place] [address] Care Team Providers Care Person Investigator Name Role Phone Unallocated, Noms Provider Primary Care Provi ct Encounter Details Date Type Department Care Team ([facility] st Contact Info) Description 04/30/2021 Abstract [facility] [address] [facility] [address] Kimberlee Garza, [facility] [address] [facility] [place] [address] Social History Tobacco Use Types Packs/Day Years [...] on filedocumented in this encounter Care Teams Person Investigator Relationship Specialty Start Date End Date Unallocated, Noms Provider, [place] [address] PCP - General Family Medicine 09/14/24 documented as of this encounter
--- OUTSIDE RECORDS SUMMARY | 2025-03-08 10:38 | XMS_ITS | Encounter Summary ---
Author Organization [facility] Address [address] [place] [address] Care Team Providers Care Planning Advisor Name Role Phone Unallocated, Noms Provider Primary Care Provi ct Encounter Details Date Type Department Care Team ([facility] st Contact Info) Description 05/21/2021 Abstract [facility] [address] [facility] [place] [address] Kimberlee Garza, [facility] [address] [facility] [place] [address] Social History Tobacco Use Types Packs/Day Years [...] on filedocumented in this encounter Care Teams Planning Advisor Relationship Specialty Start Date End Date Unallocated, Noms Provider, [place] [address] PCP - General Family Medicine 09/14/24 documented as of this encounter
--- OUTSIDE RECORDS SUMMARY | 2025-03-08 10:38 | XMS_ITS | CCD ---
Author Organization [facility] Care Team Providers Care Humid System Operator Name Role Phone KENZIE ALMONTE Unavailable [...] Attending Unavailable SHAMMO, ADI Admitting Unavailable SHAMMO, AID Primary Care Unavailable DR JAMIR SANCHEZ Consulting Unavailable ETRRENCE ALBERTO Consulting Unavailable SHAMMO, ADI Consulting Unavailable [...] Unavailable DR JAMIR SANCHEZ Consulting Unavailable SHAMMO, DAI Consulting Unavailable MISC, DR CABRERA Attending Unavailable TIFTON, DR JOSE RAFAEL Mendes Consulting Unavailable MISC, DR CABRERA Admitting Unavailable MISC, DR CABRERA Consulting Unavailable WILDER ., DR BEAU Galvan Attending Unavailable WILDER ., DR EBAU Galvan Admitting Unavailable SHAMMO, ADI Primary Care [...] Consulting Unavailable MD Claribel Pickett Attending Provider [place], [facility] Primary Care Provider Claribel Pickett Attending Unavailable Claribel Pickett Admitting Unavailable [facility] Primary Care Unavailable Unavailable Primary Care Provider Unavailabl e Shammo PIPE FITTER SUPERVISOR-TRIAL MANAGEMENT ASSOCIATE, [place] Primary Care Provider Gustavo PIPE FITTER SUPERVISOR-POOL SERVICER, [place] Primary Care Provider Unallocated Christel BOBBY Provider Primary Care Provi ct BALTAZAR CORONADO Attending Unavailable BALTAZAR CORONADO Attending Unavailable BOONE JHA Referring Unavailable SHAMMO, ADI Primary Care Unavailable KEN JONES Attending Unavailable SHAMMO, ADI Referring Unavailable [facility] Primary Care Unavailable TABITHA CANO Referring Unavailable [facility] Primary Care Unavailable Allergies Allergy Classification Reported Allergen(s) Allergy Type Date of Onset Reaction(s) Facility (5 sources) Hay Fever And Allergy Relief; Translations: [HAY FEVER AND ALLERGY RELIEF] Propensity to adverse reactions to drug 06-20-2014 [facility] (5 sources) Other; Translations: [OTHER] Propensity to adverse reactions 12-24-2015 [facility] Medications Current Medications Medication Drug Class(es) [...] per tablet Indications: 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 Indications: lack in minerals, vitamin deficiency. 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 , Pulmonary hypertension ([facility]) , Benign essential hypertension , Dyslipidemia , [...] Coronary arteriosclerosis; Translations: [Atherosclerotic heart disease of teller coronary artery without angina pectoris] Onset: 05-08-2024 [...] Fermin MD on 11/05/2024 8:50 AM Normal [facility] POCT EKGOrdered By: Marsha Layne on 05-08-2024 [facility] Activated partial thrombopla stin time (aPTT) in platelet poor plasma by coagulation aOrdered By: Claribel Pickett on 02-07-2024 aPTT Coag (PPP) [Time] 36.0 s 25.1-36.5 [facility] Comment on above: A hematocrit value g reater than 55% may lead to inaccurate results in coagulation testing. Patients having hematocrit values >55% require a special collection tube for coagulation studies. Please contact the laboratory at [phone] for redraw instructions. Automated basophil %Ordered By: Claribel Pickett on 02-07-2024 Basophils/100 WBC (Bld) 0.6 % Normal . [facility] Comment on above: Order Comment: STAT FOR CT BX Performed By: #### C BC, PP #### [facility] [address] Automated basophil countOrde red By: Claribel Pickett on 02-07-2024 Basophils (Bld) [#/Vol] 0.0 10*3/uL Normal 0.0-0.2 [facility] Comment on above: Order Comment: STAT FOR CT BX Result Comment: PERF ORMED BY: [place] [address] PATHOLOGIST HEALTH EDUCATION SPECIALIST KATRINA PATTERSON M.D. Performed By: #### C BC, PP #### [address] Automated blood monocyte cou ntOrdered By: Claribel Pickett on 02-07-2024 Monocytes (Bld) [#/Vol] 0.6 10*3/uL Normal 0.0-0.8 [facility] Comment on above: Order Comment: STAT FOR CT BX Performed By: #### C BC, PP #### [address] Automated eosinophil %Ordere d By: Claribel Nieves on 02-07-2024 Eosinophils/100 WBC (Bld) 2.5 % Normal . [facility] Comment on above: Order Comment: STAT FOR CT BX Performed By: #### C BC, PP #### [address] Automated eosinophil countOr dered By: Claribel Nieves on 02-07-2024 Eosinophils (Bld) [#/Vol] 0.2 10*3/uL Normal 0.0-0.45 [facility] Comment on above: Order Comment: STAT FOR CT BX Performed By: #### C BC, PP #### [address] Automated monocyte %Ordered By: Claribel Nieves on 02-07-2024 Monocytes/100 WBC (Bld) 7.6 % Normal . [facility] Comment on above: Order Comment: STAT FOR CT BX Performed By: #### C BC, PP #### [address] Automated neutrophil %Ordere d By: Claribel Nieves on 02-07-2024 Neutrophils/100 WBC (Bld) 72.6 % Normal . [facility] Comment on above: Order Comment: STAT FOR CT BX Performed By: #### C BC, PP #### [place] [address] guided bone marrow bx/asp iron 02-07-2024 CT guided bone marrow bx/aspir [facility] [address] [place] [address] CT Scan Report Signed Patient: Elli Lindsey MR#: [id number] : 1945 Acct:[id number] Age/Sex: 78 / F ADM Date: 02/07/24 Loc: CT Room: Type: [facility] Attending Dr: Claribel Pickett MD Copies [...] local anesthesia. Utilizing CT guidance, an 11-gauge CastTV biopsy needle was advanced into the right [...] Adams Jr., D.O.02/07/2024 2:08 PM Dictation Location: [place] [address] Transcribed By: [facility] 02/07/24 1408 Dictated By: Sebastian Adams Jr, DO 02/07/24 1407 Signed By: 02/07/24 1408 Normal The Replaced By [facility] Coagulation Profileon 2023 aPTT Coag (Bld) [Time] 36.0 s Normal 25.1-36.5 The [facility]placed By [facility] Comment on above: Order Comment: STAT FOR CT BX Result Comment: A he matocrit value greater than 55% may lead to inaccurate results in coagulation testing. Patients having hematocrit values >55% require a special collection tube for coagulation studies. Please contact the laboratory at [phone] for redraw instructions. PERFORMED BY: [place] [address] PATHOLOGIST HEALTH EDUCATION SPECIALIST KATRINA PATTERSON M.D. Performed By: #### C BC, PP #### [address] Complete Blood Count Auto Di ffon 02-07-2024 Mean Corpuscular HGB Conc 34.1 g/dL Normal 32.0-35.0 The Replaced By [facility] Comment on above: Order Comment: STAT FOR CT BX Performed By: #### C BC, PP #### [address] NRBC% 0.0 /100{WBC} Normal 0-0.5 The [facility]placed By [facility] Comment on above: Order Comment: STAT FOR CT BX Performed By: #### C BC, PP #### [address] Erythrocyte distribution wid th [Ratio] by Automated countOrdered By: Claribel Pickett on 02-07-2024 Erythrocyte distribution width (RBC) [Ratio] 13.8 % Normal 11.9-15.3 [facility] Comment on above: Order Comment: STAT FOR CT BX Performed By: #### C BC, PP #### [address] Erythrocytes [#/volume] in B lood by Automated countOrdered By: Claribel Pickett on 02-07-2024 RBC (Bld) [#/Vol] 3.45 10*6/uL Low 3.60-5.00 [facility] [place] Comment on above: Order Comment: STAT FOR CT BX Performed By: #### C BC, PP #### [address] Hematocrit [Volume Fraction] of Blood by Automated countOrdered By: Claribel Pickett on 02-07-2024 Hematocrit (Bld) [Volume fraction] 33.8 % Low 34.0-46.4 [facility] Comment on above: Order Comment: STAT FOR CT BX Performed By: #### C BC, PP #### [facility] [address] Hemoglobin [Mass/volume] in BloodOrdered By: Claribel Pickett on 02-07-2024 Hemoglobin (Bld) [Mass/Vol] 11.5 g/dL Low 11.8-15.4 [facility] Comment on above: Order Comment: STAT FOR CT BX Performed By: #### C BC, PP #### [facility] [address] [place] [address] INR in Platelet poor plasma by Coagulation assayOrdered By: Claribel Pickett on 02-07-2024 INR Coag (PPP) [Relative time] 1.0 {INR} Normal [facility] Comment on above: INR Therapeutic Rang [...] Performed By: #### C BC, PP #### [facility] [address] [place] [address] Leukocytes [#/volume] correc denita for nucleated erythrocytes in Blood by Automated counOrdered By: Claribel Pickett on 02-07-2024 WBC corrected for nucl RBC Auto (Bld) [#/Vol] 8.0 10*3/uL 3.8-11.6 [facility] Leukocytes [#/volume] in Blo od by Automated countOrdered By: Claribel Pickett on 02-07-2024 WBC (Bld) [#/Vol] 8.0 10*3/uL Normal 3.8-11.6 [facility] Comment on above: Order Comment: STAT FOR CT BX Performed By: #### C BC, PP #### [facility] [address] [place] [address] [place] Lymphocytes [#/volume] in Bl ood by Automated countOrdered By: Claribel Pcikett on 02-07-2024 Lymphocytes (Bld) [#/Vol] 1.3 10*3/uL Normal 1.00-4.8 [facility] Comment on above: Order Comment: STAT FOR CT BX Performed By: #### C BC, PP #### [address] Lymphocytes/100 leukocytes i n Blood by Automated countOrdered By: Claribel Pickett on 02-07-2024 Lymphocytes/100 WBC (Bld) 16.7 % Normal . [facility] Comment on above: Order Comment: STAT FOR CT BX Performed By: #### C BC, PP #### [address] MCH [Entitic mass] by Automa denita countOrdered By: Claribel Pickett on 02-07-2024 MCH (RBC) [Entitic mass] 33.5 pg Normal 24.7-34.3 [facility] Comment on above: Order Comment: STAT FOR CT BX Performed By: #### C BC, PP #### [address] MCHC Auto (RBC) [Mass/Vol]Or dered By: Claribelvannessa Pickett on 02-07-2024 MCHC (RBC) [Mass/Vol] 34.1 g/dL 32.0-35.0 [facility] MCV [Entitic volume] by Auto mated countOrdered By: Claribel Pickett on 02-07-2024 MCV (RBC) [Entitic vol] 98.1 fL Normal 80-100 [facility] Comment on above: Order Comment: STAT FOR CT BX Performed By: #### C BC, PP #### [place] [address] [place] Neutrophils [#/volume] in Bl ood by Automated countOrdered By: Claribel Pickett on 02-07-2024 Neutrophils (Bld) [#/Vol] 5.8 10*3/uL Normal 1.8-7.7 [facility] Comment on above: Order Comment: STAT FOR CT BX Performed By: #### C BC, PP #### [address] Nucleated erythrocytes [Pres ence] in Blood by Automated countOrdered By: Claribel Pickett on 02-07-2024 Nucleated RBC Auto Ql (Bld) 0.0 /100{WBC} 0-0.5 [facility] Pathology Request for Lab Co rpon 02-07-2024 Pathology Request for Lab Samir Normal The Replaced By [facility] Comment on above: Order Comment: BM BI OPSY Result Comment: See report. Scanned copy available in EMR. PERFORMED BY: [place] [address] PATHOLOGIST HEALTH EDUCATION SPECIALIST KATRINA PATTERSON M.D. Performed By: #### P ATH TO [facility] #### [address] Platelet mean volume [Entiti c volume] in Blood by Automated countOrdered By: Claribel Pickett on 02-07-2024 Platelet mean volume (Bld) [Entitic vol] 7.2 fL Normal 6.3-10.7 [facility] Comment on above: Order Comment: STAT FOR CT BX Performed By: #### C BC, PP #### [address] Platelets [#/volume] in Bloo d by Automated countOrdered By: Claribel Pickett on 02-07-2024 Platelets (Bld) [#/Vol] 271 10*3/uL Normal 150-450 [facility] Comment on above: Order Comment: STAT FOR CT BX Performed By: #### C BC, PP #### [address] Prothrombin time (PT)Ordered By: Claribel Pickett on 02-07-2024 PT Coag (PPP) [Time] 11.8 s Normal 9.0-12.9 [facility] Comment on above: A hematocrit value g reater than 55% may lead to inaccurate results in coagulation testing. Patients having hematocrit values >55% require a special collection tube for coagulation studies. Please contact the laboratory at [phone] for redraw instructions. Order Comment: STAT FOR CT BX Result Comment: A he matocrit value greater than 55% may lead to inaccurate results in coagulation testing. Patients having hematocrit values >55% require a special collection tube for coagulation studies. Please contact the laboratory at [phone] for redraw instructions. Performed By: #### C BC, PP #### [facility] [address] [place] [address] XR KNEE RT 3 VWSon XR KNEE [...] Garcia MD on 01/26/2024 10:55 PM Normal [facility] US CAROTID ART BILon 05-26-2 023 [...] by: JAMIR SANCHEZ Date: 2022-11-06 05:46 Normal [facility] BNPon 11-05-2022 Natriuretic peptide B (Bld) [Mass/Vol] 55.0 pg/mL Normal <=1,800.0 [facility] Comment on above: Performed By: #### H STROPN, CMP, BNP, MG #### [facility] [address] [place] [address] [address] Linda Park ECHOCARDIO M/2D COMPLETEon 0 11-05-2022 ECHOCARDIO M/2D COMPLETE Patient: ELLI LINDSEY Exam Date: 11/05/2022 : 1945 Gender:F Ordering : ADI FIGUEROA Admission #: [id number] Family : Order #: [id number] CLICK HERE TO VIEW EXAM ECHOCARDIOGRAM REPORT [...] Lopez M.D. on 11/08/2022 at 15:17 Normal [facility] MAGNESIUMon 11-05-2022 Magnesium [Mass/Vol] 2.0 mg/dL Normal 1.8-2.4 [facility] Comment on above: Performed By: #### H STROPN, CMP, BNP, MG #### [facility] [address] [place] [address] Dr. Linda Park PROF 14(COMP METB)on 023 Albumin [Mass/Vol] 3.7 g/dL Normal 3.4-5.0 [facility] Comment on above: Performed By: #### H STROPN, CMP, BNP, MG #### [facility] [address] [place] [address] Dr. Linda Park Albumin/Globulin [Mass ratio] 1.1 {ratio} Normal [facility] Comment on above: Performed By: #### H STROPN, CMP, BNP, MG #### [facility] [address] [place] [address] Dr. Linda Park ALP [Catalytic activity/Vol] 84 U/L Normal 46-116 [facility] Comment on above: Performed By: #### H STROPN, CMP, BNP, MG #### [facility] [address] [place] [address] Dr. Linda Park ALT [Catalytic activity/Vol] 17 U/L Normal 14-59 [facility] Comment on above: Performed By: #### H STROPN, CMP, BNP, MG #### [facility] [address] [place] [address] [address] Linda Park Anion gap [Moles/Vol] 10.8 mmol/L Normal [facility] Comment on above: Performed By: #### H STROPN, CMP, BNP, MG #### [facility] [address] [place] [address] [address] Linda Park AST [Catalytic activity/Vol] 15 U/L Normal 15-37 [facility] Comment on above: Performed By: #### H STROPN, CMP, BNP, MG #### [facility] [address] [place] [address] [address] Linda Park Bilirubin [Mass/Vol] 0.2 mg/dL Normal 0.2-1.0 [facility] Comment on above: Performed By: #### H STROPN, CMP, BNP, MG #### [facility] [address] [place] [address] Dr. Linda Park Calcium [Mass/Vol] 9.1 mg/dL Normal 8.5-10.1 [facility] Comment on above: Performed By: #### H STROPN, CMP, BNP, MG #### [facility] [address] [place] [address] [address] Linda Park Chloride [Moles/Vol] 104 mmol/L Normal 98-107 [facility] Comment on above: Performed By: #### H STROPN, CMP, BNP, MG #### [facility] [address] [place] [address] [address] Linda Park CO2 [Moles/Vol] 30.8 mmol/L Normal 21.0-32.0 [facility] Comment on above: Performed By: #### H STROPN, CMP, BNP, MG #### [facility] [address] [place] [address] [address] Linda Park Creatinine [Mass/Vol] 0.94 mg/dL Normal 0.55-1.02 [facility] Comment on above: Performed By: #### H STROPN, CMP, BNP, MG #### [facility] [address] [place] [address] [address] Linda Park EGFR-AF SUDANESE >60 Normal >=60 [facility] Comment on above: Performed By: #### H STROPN, CMP, BNP, MG #### [facility] [address] [place] [address] [address] Linda Park EGFR-NON AF SUDANESE 58 mL/min/1.73m2 Critically low >=60 [facility] Comment on above: Performed By: #### H STROPN, CMP, BNP, MG #### [facility] [address] [address] [address] Linda Park Globulin (S) [Mass/Vol] 3.5 g/dL Normal [facility] Comment on above: Performed By: #### H STROPN, CMP, BNP, MG #### [facility] [address] [place] [address] Dr. Linda Park Glucose [Mass/Vol] 78 mg/dL Normal 74-106 [facility] Comment on above: Performed By: #### H STROPN, CMP, BNP, MG #### [facility] [address] [place] [address] [address] Linda Park Potassium [Moles/Vol] 4.6 mmol/L Normal 3.5-5.1 [facility] Comment on above: Performed By: #### H STROPN, CMP, BNP, MG #### [facility] [address] [place] [address] Dr. Linda Park Protein [Mass/Vol] 7.2 g/dL Normal 6.4-8.2 [facility] Comment on above: Performed By: #### H STROPN, CMP, BNP, MG #### [facility] [address] [place] [address] Dr. Linda Park Sodium [Moles/Vol] 141 mmol/L Normal 136-145 [facility] Comment on above: Performed By: #### H STROPN, CMP, BNP, MG #### [facility] [address] [place] [address] Dr. Linda Park Urea nitrogen [Mass/Vol] 17.0 mg/dL Normal 7.0-18.0 [facility] Comment on above: Performed By: #### H STROPN, CMP, BNP, MG #### [facility] [address] [place], [place] [address] Dr. Linda Park Urea nitrogen/Creatinin e [Mass ratio] 18.1 mg/mg Normal [facility] Comment on above: Performed By: #### H STROPN, CMP, BNP, MG #### [facility] [address] [place] [address] [address] Linda Park TROPONIN, HIGH SENSITIVITYon 11-05-2022 HSTROP 9.2 pg/mL Normal 4.0-51.3 [facility] Comment on above: Result Comment: CUT- OFF POINTS HAVE BEEN ESTABLISHED BASED ON THE FOURTH UNIVERSAL DEFINITIONS OF MYOCARDIAL INFARCTION. THE UPPER REFERENCE LIMIT (URL) OF TROPONIN, DEFINED THE 99TH PERCENTILE OF cTnI DISTRIBUTION IN A REFERENCE POPULATION, HAS BEEN CONFIRMED THE DECISION THRESHOLD FOR MS DIAGNOSIS. Performed By: #### H STROPN, CMP, BNP, MG #### [facility] [address] [place] [address] [address] Linda Park XR CHEST 2 Von [...] ALBERTO Date: 2022-11-05 18:32 Normal [facility] HEMOGRAM AND PLATELon 2022 Hematocrit (Bld) [Volume fraction] 27.8 % Critically low 36.0-48.0 [facility] Comment on above: Performed By: #### H STROPN, CMP, BNP, MG #### [facility] [address] [place] [address] [address] Linda Park Hemoglobin (Bld) [Mass/Vol] 8.8 g/dL Critically low 12.0-16.0 [facility] Comment on above: Performed By: #### H STROPN, CMP, BNP, MG #### [facility] [address] [address] [address] Linda Park MCH (RBC) [Entitic mass] 29.0 pg Normal 26.7-34.0 [facility] Comment on above: Performed By: #### H STROPN, CMP, BNP, MG #### [facility] [address] [place] [address] [address] Linda Park MCHC (RBC) [Mass/Vol] 31.7 g/dL Normal 29.9-35.2 [facility] Comment on above: Performed By: #### H STROPN, CMP, BNP, MG #### [facility] [address] [address] [address] Linda Park MCV (RBC) [Entitic vol] 91.7 fL Normal 81.0-99.0 [facility] Comment on above: Performed By: #### H STROPN, CMP, BNP, MG #### [facility] [address] [place] [address] Dr. Linda Park PLT 217 103/ul Normal 150-450 [facility] Comment on above: Performed By: #### H STROPN, CMP, BNP, MG #### [facility] [address] [place] [address] [address] Linda Park RBC 3.03 106/ul Critically low 4.20-5.40 [facility] Comment on above: Performed By: #### H STROPN, CMP, BNP, MG #### [facility] [address] [place] [address] Dr. Linda Park WBC 6.4 103/ul Normal 4.0-11.0 [facility] Comment on above: Performed By: #### H STROPN, CMP, BNP, MG #### [facility] [address] [place] [address] Dr. Linda Park LIPID PROFILEon 08-24-2022 CHOL-HDL RATIO NORM SEE BELOW Normal [facility] Comment on above: Result Comment: 3.3 - 4.4 LOW RISK 4.4 - 7.1 AVERAGE RISK 7.1 - 11.0 MODERATE RISK >11.0 HIGH RISK Performed By: #### H STROPN, CMP, BNP, MG #### [facility] [address] [place] [address] [address] Linda Park Cholesterol [Mass/Vol] 166 mg/dL Normal <=200 [facility] Comment on above: Performed By: #### H STROPN, CMP, BNP, MG #### [facility] [address] [address] [address] Linda Park Cholesterol in HDL [Mass/Vol] 54 mg/dL Normal 40-60 [facility] Comment on above: Performed By: #### H STROPN, CMP, BNP, MG #### [facility] [address] [place] [address] [address] Linda Park Cholesterol in LDL [Mass/Vol] 70.8 mg/dL Normal [facility] Comment on above: Performed By: #### H STROPN, CMP, BNP, MG #### [facility] [address] [address] [address] Linda Park Cholesterol.total/ Cholesterol in HDL [Mass ratio] 3.1 {ratio} Normal [facility] Comment on above: Performed By: #### H STROPN, CMP, BNP, MG #### [facility] [address] [address] [address] Linda Park HDL NORMAL > or = 60 mg/dl - LO W CARDIOVASCULAR RISK <40 mg/dl - HIGH CARDIOVASCULAR RISK Normal [facility] Comment on above: Performed By: #### H STROPN, CMP, BNP, MG #### [facility] [address] [address] [address] Linda Park LDL CALC NORMAL SEE BELOW Normal [facility] Comment on above: Result Comment: <100 mg/dl OPTIMAL 100 - 129 mg/dl NEAR OR ABOVE OPTIMAL 130 - 159 mg/dl BORDERLINE HIGH 160 - 189 mg/dl HIGH >190 mg/dl VERY HIGH Performed By: #### H STROPN, CMP, BNP, MG #### [facility] [address] [address] [address] Linda Park Triglyceride [Mass/Vol] 206 mg/dL Critically high <=150 [facility] Comment on above: Performed By: #### H STROPN, CMP, BNP, MG #### [facility] [address] [address] [address] Linda Park VLDL CALC 41.2 mg/dL Normal [facility] Comment on above: Performed By: #### H STROPN, CMP, BNP, MG #### [facility] [address] [address] [address] Linda Park PROF 14(COMP METB)on 023 Albumin [Mass/Vol] 3.7 g/dL Normal 3.4-5.0 [facility] Comment on above: Performed By: #### H STROPN, CMP, BNP, MG #### [facility] [address] [address] [address] Linda Park Albumin/Globulin [Mass ratio] 1.1 {ratio} Normal [facility] Comment on above: Performed By: #### H STROPN, CMP, BNP, MG #### [facility] [address] [address] [address] Linda Park ALP [Catalytic activity/Vol] 84 U/L Normal 46-116 [facility] Comment on above: Performed By: #### H STROPN, CMP, BNP, MG #### [facility] [address] [address] [address] Linda Park ALT [Catalytic activity/Vol] 17 U/L Normal 14-59 [facility] Comment on above: Performed By: #### H STROPN, CMP, BNP, MG #### [facility] [address] [address] [address] Linda Park Anion gap [Moles/Vol] 11.8 mmol/L Normal [facility] Comment on above: Performed By: #### H STROPN, CMP, BNP, MG #### [facility] [address] [address] [address] Linda Park AST [Catalytic activity/Vol] 19 U/L Normal 15-37 [facility] Comment on above: Performed By: #### H STROPN, CMP, BNP, MG #### [facility] [address] [place] [address] Dr. Linda Park Bilirubin [Mass/Vol] 0.4 mg/dL Normal 0.2-1.0 [facility] Comment on above: Performed By: #### H STROPN, CMP, BNP, MG #### [facility] [address] [address] [address] Linda Park Calcium [Mass/Vol] 9.5 mg/dL Normal 8.5-10.1 [facility] Comment on above: Performed By: #### H STROPN, CMP, BNP, MG #### [facility] [address] [place] [address] Dr. Linda Park Chloride [Moles/Vol] 104 mmol/L Normal 98-107 [facility] Comment on above: Performed By: #### H STROPN, CMP, BNP, MG #### [facility] [address] [place] [address] Dr. Linda Park CO2 [Moles/Vol] 28.6 mmol/L Normal 21.0-32.0 [facility] Comment on above: Performed By: #### H STROPN, CMP, BNP, MG #### [facility] [address] [place] [address] Dr. Linda Park Creatinine [Mass/Vol] 0.87 mg/dL Normal 0.55-1.02 [facility] Comment on above: Performed By: #### H STROPN, CMP, BNP, MG #### [facility] [address] [place] [address] Dr. Linda Park EGFR-AF SUDANESE >60 Normal >=60 [facility] Comment on above: Performed By: #### H STROPN, CMP, BNP, MG #### [facility] [address] [place] [address] Dr. Linda Park EGFR-NON AF SUDANESE >60 Normal >=60 [facility] Comment on above: Performed By: #### H STROPN, CMP, BNP, MG #### [facility] [address] [address] [address] Linda Park Globulin (S) [Mass/Vol] 3.3 g/dL Normal [facility] Comment on above: Performed By: #### H STROPN, CMP, BNP, MG #### [facility] [address] [address] [address] Linda Park Glucose [Mass/Vol] 95 mg/dL Normal 74-106 [facility] Comment on above: Performed By: #### H STROPN, CMP, BNP, MG #### [facility] [address] [place] [address] Dr. Linda Park Potassium [Moles/Vol] 4.4 mmol/L Normal 3.5-5.1 [facility] Comment on above: Performed By: #### H STROPN, CMP, BNP, MG #### [facility] [address] [place] [address] Dr. Linda Park Protein [Mass/Vol] 7.0 g/dL Normal 6.4-8.2 [facility] Comment on above: Performed By: #### H STROPN, CMP, BNP, MG #### [facility] [address] [place] [address] Dr. Linda Park Sodium [Moles/Vol] 140 mmol/L Normal 136-145 [facility] Comment on above: Performed By: #### H STROPN, CMP, BNP, MG #### [facility] [address] [place] [address] Dr. Linda Park Urea nitrogen [Mass/Vol] 14.0 mg/dL Normal 7.0-18.0 [facility] Comment on above: Performed By: #### H STROPN, CMP, BNP, MG #### [facility] [address] [place] [address] Dr. Linda Park Urea nitrogen/Creatinin e [Mass ratio] 16.1 mg/mg Normal [facility] Comment on above: Performed By: #### H STROPN, CMP, BNP, MG #### [facility] [address] [address] [address] Linda Park XR LSPINE MIN 4 [...] JAMIR SANCHEZ Date: 2022-04-30 06:55 Normal [facility] MAMM SCREEN 3D GONZALEZ CADon 03-05-2022 MG MAMM SCREEN 3D GONZALEZ CAD Patient: ELLI LINDSEY Exam Date: 03/05/2022 : 1945 Gender:F Ordering : DR DOCTOR ZAVALA Admission #: [id number] Family : DR. SAMINA GEE M.D. Order #: [id number] CLICK HERE TO VIEW EXAM RADIOLOGY REPORT [...] cancer at age 72. LOCATION: [facility] BREAST COMPOSITION: Scattered areas fibroglandular [...] Arndt MD on 03/05/2022 at 12:09 Normal [facility] Basic Metabolic Profon 09-30 (cont.) Normal [facility] Comment on above: Result Comment: Aver age GFR for 70 or more years old: 75 mL/min/1.73sq mChronic Kidney Disease: <60 mL/min/1.73sq mKidney failure: <15 mL/min/1.73sq meGFR calculated using average adult body mass. Additional eGFR calculator available at:[email or web address]_[email or web address] at [facility] [address] [place] [address] Performed By: #### C DP, ALCB, BMP, TSH ####[address] [address] Anion gap 13 mmol/L Normal 9-17 [facility] Comment on above: Performed By: #### C DP, ALCB, BMP, TSH ####[address] [address] BUN/CRE Ratio 26 High 9-20 [facility] Comment on above: Performed By: #### C DP, ALCB, BMP, TSH ####[address] [address] Calcium 9.4 mg/dL Normal 8.6-10.4 [facility] Comment on above: Performed By: #### C DP, ALCB, BMP, TSH ####[place] [address] Chloride 101 mmol/L Normal 98-107 [facility] Comment on above: Performed By: #### C DP, ALCB, BMP, TSH ####[facility] [address] CO2 25 mmol/L Normal 20-31 [facility] Comment on above: Performed By: #### C DP, ALCB, BMP, TSH ####[address] [address] Creatinine 0.66 mg/dL Normal 0.50-0.90 [facility] Comment on above: Performed By: #### C DP, ALCB, BMP, TSH ####[address] [address] eGFR (non-black) mL/min/{1.73_m2} Normal >60 [facility] Comment on above: Performed By: #### C DP, ALCB, BMP, TSH ####[address] [address] Glucose mass conc 92 mg/dL Normal 70-99 [facility] Comment on above: Performed By: #### C DP, ALCB, BMP, TSH ####[address] [address] Potassium molar conc 4.1 mmol/L Normal 3.7-5.3 [facility] Comment on above: Performed By: #### C DP, ALCB, BMP, TSH ####[address] [address] Sodium 139 mmol/L Normal 135-144 [facility] Comment on above: Performed By: #### C DP, ALCB, BMP, TSH ####[address] [address] Urea nitrogen 17 mg/dL Normal 8-23 [facility] Comment on above: Performed By: #### C DP, ALCB, BMP, TSH ####[address] [address] Staging: NOT REPORTED Normal [facility] Comment on above: Performed By: #### C DP, ALCB, BMP, TSH ####[address] [address] CBC with Diffon 09-30-2017 Abs. Basophil 0.00 k/uL Normal 0.0-0.2 [facility] Comment on above: Result Comment: Perf ormed at [facility] [address] [place] [address] Performed By: #### C DP, ALCB, BMP, TSH ####[place] [address] Abs.Neutrophil (Seg) 4.30 k/uL Normal 1.8-7.7 [facility] Comment on above: Performed By: #### C DP, ALCB, BMP, TSH ####[address] [address] Basophils/100 WBC Auto (Bld) 1 % Normal 0-2 [facility] Comment on above: Performed By: #### C DP, ALCB, BMP, TSH ####[address] [address] Eosinophils 0.10 10*3/uL Normal 0.0-0.4 [facility] Comment on above: Performed By: #### C DP, ALCB, BMP, TSH ####[place] [address] Eosinophils/100 leukocytes 3 % Normal 1-4 [facility] Comment on above: Performed By: #### C DP, ALCB, BMP, TSH ####[facility] [address] [place] [address] Erythrocyte distribution width Auto Ratio (RBC) 13.6 % Normal 11.5-14.5 [facility] Comment on above: Performed By: #### C DP, ALCB, BMP, TSH ####[address] [address] Erythrocytes (RBC) 3.66 10*6/uL Low 4.0-5.2 [facility] Comment on above: Performed By: #### C DP, ALCB, BMP, TSH ####[facility] [place] [address] Hematocrit (HCT) 35.9 % Low 36-46 [facility] Comment on above: Performed By: #### C DP, ALCB, BMP, TSH ####[address] [address] Hemoglobin mass conc (Bld) 12.1 g/dL Normal 12.0-16.0 [facility] Comment on above: Performed By: #### C DP, ALCB, BMP, TSH ####[address] [address] Lymphocytes 1.00 10*3/uL Normal 1.0-4.8 [facility] Comment on above: Performed By: #### C DP, ALCB, BMP, TSH ####[address] [address] Lymphocytes/100 leukocytes 17 % Low 24-44 [facility] Comment on above: Performed By: #### C DP, ALCB, BMP, TSH ####[address] [id number] MCH 33.1 pg Normal 26-34 [facility] Comment on above: Performed By: #### C DP, ALCB, BMP, TSH ####[place] [address] MCHC mass conc (RBC) 33.7 g/dL Normal 31-37 [facility] Comment on above: Performed By: #### C DP, ALCB, BMP, TSH ####[address] [address] MCV 98.1 fL Normal 80-100 [facility] Comment on above: Performed By: #### C DP, ALCB, BMP, TSH ####[place] [address] Monocytes 0.30 10*3/uL Normal 0.2-0.8 [facility] Comment on above: Performed By: #### C DP, ALCB, BMP, TSH ####[place] [address] Monocytes/100 leukocytes 6 % Normal 1-7 [facility] Comment on above: Performed By: #### C DP, ALCB, BMP, TSH ####[place] [address] Neutrophil (Seg) 73 % High 36-66 [facility] Comment on above: Performed By: #### C DP, ALCB, BMP, TSH ####[place] [address] Platelet mean volume (PMV) 7.9 fL Normal 6.0-12.0 [facility] Comment on above: Performed By: #### C DP, ALCB, BMP, TSH ####[place] [address] Platelets 206 10*3/uL Normal 130-400 [facility] Comment on above: Performed By: #### C DP, ALCB, BMP, TSH ####[address] [address] WBC (Leukocytes) 5.8 10*3/uL Normal 3.5-11.0 [facility] Comment on above: Performed By: #### C DP, ALCB, BMP, TSH ####[address] [address] Auto Diff Performed NOT REPORTED Normal [facility] Comment on above: Performed By: #### C DP, ALCB, BMP, TSH ####[address] [address] Erythrocyte morphology NOT REPORTED Normal [facility] Comment on above: Performed By: #### C DP, ALCB, BMP, TSH ####[address] [address] Erythrocytes (RBC) NOT REPORTED Normal [facility] Comment on above: Performed By: #### C DP, ALCB, BMP, TSH ####[address] [address] Granulocytes/100 WBC (Bld) NOT REPORTED Normal 0.00-0.30 [facility] Comment on above: Performed By: #### C DP, ALCB, BMP, TSH ####[address] [address] Immature granulocytes #/vol (Bld) NOT REPORTED Normal 0 [facility] Comment on above: Performed By: #### C DP, ALCB, BMP, TSH ####[address] [address] Platelets NOT REPORTED Normal [facility] Comment on above: Performed By: #### C DP, ALCB, BMP, TSH ####[address] [address] WBC Morphology NOT REPORTED Normal [facility] Comment on above: Performed By: #### C DP, ALCB, BMP, TSH ####[address] [address] Drug Scr, Abuse, Uron 2017 Amphetamine(s),Ur Negative Normal NEG [facility] Comment on above: Result Comment: (Pos itive cutoff 1000 ng/mL) Performed By: #### D AU ####[address] [address] Barbiturate(s),Ur Negative Normal NEG [facility] Comment on above: Result Comment: (Pos itive cutoff 200 ng/mL) Performed By: #### D AU ####[address] [address] Base excess Negative Normal NEG [facility] Comment on above: Result Comment: (Pos itive cutoff 300 ng/mL) Performed By: #### D AU ####[address] [address] Benzodiazepine(s) Positive Abnormal NEG [facility] Comment on above: Result Comment: (Pos itive cutoff 200 ng/mL) Performed By: #### D AU ####[address] [address] Cannabinoid(s),Ur Negative Normal NEG [facility] Comment on above: Result Comment: (Pos itive cutoff 50 ng/mL) Performed By: #### D AU ####[address] [address] Interpretive Info Assay provides medic al screening only. The absence of expected drug(s) and/or Normal [facility] Comment on above: Result Comment: meta bolite(s) may indicate diluted or adulterated urine, limitations of testing or timing of collection.Testing for legal purposes should be confirmed by another method. To request confirmation of test result, please call the lab within 7 days of sample submission.Performed at [facility] [address] [place] [address] Performed By: #### D AU ####[address] [address] Opiate(s), Ur Negative Normal NEG [facility] Comment on above: Result Comment: (Pos itive cutoff 300 ng/mL) Performed By: #### D AU ####[address] [address] Oxycodone, Urine Positive Abnormal NEG [facility] Comment on above: Result Comment: (Pos itive cutoff 100 ng/mL) Performed By: #### D AU ####[address] [address] Phencyclidine, Ur Negative Normal NEG [facility] Comment on above: Result Comment: (Pos itive cutoff 25 ng/mL) Performed By: #### D AU ####[address] [address] Urine, methadone presence Negative Normal NEG [facility] Comment on above: Result Comment: (Pos itive cutoff 300 ng/mL) Performed By: #### D AU ####[address] [address] Buprenorphrine, Ur NOT REPORTED Normal NEG [facility] Comment on above: Performed By: #### D AU ####[address] [address] MDMA, Urine NOT REPORTED Normal NEG [facility] Comment on above: Performed By: #### D AU ####[address] [address] Methamphetamine, Ur NOT REPORTED Normal NEG [facility] Comment on above: Performed By: #### D AU ####[address] [address] Propoxyphene,Urine NOT REPORTED Normal NEG [facility] Comment on above: Performed By: #### D AU ####[address] [address] Urine, tricyclic antidepressants NOT REPORTED Normal NEG [facility] Comment on above: Performed By: #### D AU ####[address] [address] Ethanol Alcoholon 09-30-2017 Ethanol mg/dL Normal <10 [facility] Comment on above: Performed By: #### C DP, ALCB, BMP, TSH ####[address] [address] Ethanol percent <0.010 Normal [facility] Comment on above: Result Comment: Perf ormed at [address] [place] [address] Performed By: #### C DP, ALCB, BMP, TSH ####[address] [address] Thyroid Stim. Horm.on 2017 Thyroid stimulating hormone (TSH) 0.87 m[IU]/L Normal 0.30-5.00 [facility] Comment on above: Result Comment: Perf ormed at [facility] [address] [place] [address] Performed By: #### C DP, ALCB, BMP, TSH ####[facility] [place] [address] [facility] DIGITAL DIAGNOSTIC BILAT ERALon 04-27-2017 [facility] DIGITAL DIAGNOSTIC BILATERAL This is [...] sent to the patient regarding the results.The [employer] recommends annual mammograms for women 40years and older.Interpreted by:TIM Robinigned by:Elli Aparicio MD04/27/17CC Recipients:Mark Francois MD - In Wander Gee - FaxFinal result Normal [facility] Vital Signs Date Time Vital Sign Value Performing Clinician Facility 09-14-2024 11:31-0400 Body height 139.7 cm Baltazar Coronado DPM Work Phone: [facility] 09-14-2024 11:31-0400 Respiratory rate 16 /min Baltazar Cliff DPM Work Phone: [facility] 07-06-2024 11:21-0500 Body height 139.7 cm Baltazar Coronado DPM Work Phone: [facility] 07-06-2024 11:21-0500 Respiratory rate 16 /min Baltazar Coronado DPM Work Phone: [facility] 05-08-2024 12:37-0500 Body height 152.4 cm Ken Jones MD Work Phone: [facility] 05-08-2024 12:37-0500 Body mass index (BMI) [Ratio] 36.29 kg/m2 Ken Jones MD Work Phone: [facility] 05-08-2024 12:37-0500 Body weight 84.28 kg Ken Jones MD Work Phone: [facility] 05-08-2024 12:37-0500 Diastolic blood pressure 98 mm[Hg] Ken Jones MD Work Phone: [facility] 05-08-2024 12:37-0500 Heart rate 73 /min Ken Jones MD Work Phone: [facility] 05-08-2024 12:37-0500 SaO2% (BldA) [Mass fraction] 97 % Ken Jones MD Work Phone: [facility] 05-08-2024 12:37-0500 Systolic blood pressure 144 mm[Hg] Ken Jones MD Work Phone: [facility] 02-07-2024 11:10-0400 Diastolic blood pressure 66 mm[Hg] CAROLINE Chen Work Phone: [facility] 02-07-2024 11:10-0400 Heart rate 65 /min CAROLINE Chen Work Phone: [facility] 02-07-2024 11:10-0400 Respiratory rate 16 /min PIPE FITTER SUPERVISORJose Chen Work Phone: [facility] 02-07-2024 11:10-0400 SaO2% (BldA) [Mass fraction] 98 % PIPE FITTER SUPERVISORJose Chen Work Phone: [facility] 02-07-2024 11:10-0400 Systolic blood pressure 127 mm[Hg] PIPE FITTER SUPERVISORJose Chen Work Phone: [facility] 02-07-2024 09:190400 Body height 154.94 cm PIPE FITTER SUPERVISORJose Chen Work Phone: [facility] 02-07-2024 09:0400 Body weight 81.19 kg PIPE FITTER SUPERVISORJose Chen Work Phone: [facility] Encounters Encounter Date Encounter Type Care Provider Facility Start: 11-01-2024 End: 11-01-2024 ambulatory [facility] Start: 09-14-2024 End: 09-14-2024 Bamboo flowsheet Baltazar [...] on above: 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 (Primary Dx); Pulmonary hypertension ([facility]); Benign essential hypertension; Dyslipidemia; Dyspnea on exertion Start: 05-08-2024 End: 05-08-2024 [facility] Start: 05-05-2024 End: 05-05-2024 Telephone encounter Marsha Layne CMA [facility] Start: 04-12-2024 End: 04-26-2024 Telephone encounter Kimberlee Garza [facility] Work Phone: [facility] Comment on above: Hearing Aid Problem Start: 03-30-2024 End: 03-31-2024 Refill Denise Araiza RN [facility] Comment on above: Med Refill Start: 02-07-2024 End: 02-07-2024 Admission to same day surgery center CAROLINE Chen Work Phone: [facility] Work Phone: Start: 02-07-2024 End: 02-07-2024 ambulatory CAROLINE Chen Work Phone: [facility] Work Phone: Start: 01-26-2024 End: 01-26-2024 ambulatory BOONE JHA [facility] Start: 07-12-2023 Orders Only Shukri Jeong MD Work Phone: [facility] Start: 11-05-2022 End: 11-06-2022 ambulatory ADI SHAMMO Facility:[facility] Start: 09-24-2022 End: 09-25-2022 ambulatory RCJACOB ALECKARIEPATRICIO . Facility:[facility] Start: 08-25-2022 Encounter for genera l adult medical examination without abnormal findings ADICARLOS FIGUEROA [facility] Start: 08-25-2022 Encounter for preprocedural cardiovascular examination DR BEAU WILDER . [facility] Start: 08-25-2022 End: 08-25-2022 ambulatory [...] 09-30-2017 Emergency department patient visit MEGHANN GEE [facility] Start: 07-20-2017 Patient encounter procedure Shukri Jeong MD Work Phone: [facility] Start: 04-27-2017 End: 04-28-2017 Ambulatory KENZIE ALMONTE [facility] Procedures Date Procedure Procedure Detail Performing Clinician [...] Td Vaccines (2 - Td or Tdap) [facility] Start: 05-08-2025 Tobacco Screening Tobacco Screening [facility] Start: 11-23-2024 End: 11-23-2024 Patient encounter procedure 11/23/2024 1:00 PM EDT Procedure Visit [facility] [address] 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 (Primary Dx); Metatarsal deformity, left; Metatarsal deformity, right Start: 07-06-2024 End: 07-06-2024 Patient encounter procedure [facility] Comment on above: Arrived Start: 06-16-2024 COVID-19 Vaccine ( season) COVID-19 Vaccine () [facility] Start: 05-15-2024 End: 05-08-2025 Basic metabolic 2000 panel - Serum or Plasma Basic Metabolic Panel Lab Routine Coronary artery disease involving teller coronary artery 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 angina pectoris Pulmonary hypertension ([facility]) Benign essential hypertension Dyslipidemia Dyspnea on exertion Expected: 05/15/2024, Expires: 05/08/2025 [facility] Work Phone: Comment on above: Expected: 05/15/2024 , Expires: 05/08/2025 Start: 05-09-2024 End: 05-09-2024 Patient encounter procedure 05/09/2024 10:00 AM EST Office Visit [facility] [address] [place] [id number] Ken Jones MD [address] [place] [address] [facility] Start: 05-08-2024 End: 05-08-2024 Patient encounter procedure 05/08/2024 12:45 PM EST Office Visit [facility] [address] [place] [id number] Ken Jones MD [address] [place] [address] [facility] Start: 03-02-2024 Adult BMI Screening Adult BMI Screen ing [facility] Start: 03-02-2024 Tobacco Screening Tobacco Screening [facility] Start: 02-13-2024 COVID-19 Vaccine ( season) COVID-19 Vaccine () [facility] Start: 02-13-2024 COVID-19 Vaccine ( season) COVID-19 Vaccine () [facility] Start: 02-13-2024 Influenza vaccination Influenza Vacc ine [facility] Start: 02-07-2024 [facility] Start: 02-07-2024 Bone marrow sampling [facility] Start: 06-01-2023 Adult BMI Follow Up Plan Adult BMI Follow Up Plan [facility] Start: 02-12-2023 COVID-19 Vaccine ( season) COVID-19 Vaccine () [facility] Start: 02-12-2023 Influenza vaccination Influenza Vacc ine [facility] Start: 08-18-2022 Depression Screening Depression Scre ening [facility] Start: 02-18-2022 Fall Risk Screening Fall Risk Screen ing [facility] Start: 02-18-2022 Medicare Annual Well ness Visit Medicare Annual Wellness Visit [facility] Start: 2010 Fall Risk Screening Fall Risk Screen ing [facility] End: 03-30-2025 Basic metabolic 2000 panel - Serum or Plasma Basic Metabolic Panel Lab Routine Coronary artery disease involving teller coronary artery 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 angina pectoris 1 Occurrences starting 03/31/2024 until 03/30/2025 [facility] Work Phone: Comment on above: 1 Occurrences starti ng 03/31/2024 until 03/30/2025 End: 03-30-2025 Magnesium [Mass/volume] in Serum or Plasma Magnesium Lab Routine Coronary artery disease involving teller coronary artery 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 angina pectoris 1 Occurrences starting 03/31/2024 until 03/30/2025 [facility] Comment on above: 1 Occurrences starti ng 03/31/2024 until 03/30/2025 Patient Education Replaced By [facility] Bone Marrow Aspiration or Biopsy Know your Meds [facility] Work Phone: Immunizations Immunization Date Immunization Notes Care Provider Fa cility 03-04-2023 influenza virus vacc ine, unspecified formulation Denise Araiza RN [facility] 03-04-2022 influenza, injectabl e, quadrivalent, preservative free Shukri Jeong MD Work Phone: [facility] 03-04-2022 influenza virus vacc ine, unspecified formulation Shukri Jeong MD Work Phone: [facility] 04-04-2021 influenza, injectabl e, quadrivalent, contains preservative Shukri Jeong MD Work Phone: [facility] 03-13-2021 COVID-19, mRNA, LNP- S, PF, 30mcg/0.3mL Dose Shukri Jeong MD Work Phone: [facility] 08-13-2020 COVID-19, mRNA, LNP- S, PF, 30mcg/0.3mL Dose Shukri Jeong MD Work Phone: [facility] 07-22-2020 COVID-19, mRNA, LNP- S, PF, 30mcg/0.3mL Dose Shukri Jeong MD Work Phone: [facility] 02-06-2020 influenza, injectabl e, quadrivalent, preservative free Shukri Jeong MD Work Phone: [facility] 04-06-2019 zoster vaccine recombinant Shukri Jeong MD Work Phone: [facility] 03-09-2019 influenza, high dose seasonal, preservative-free Shukri Jeong MD Work Phone: [facility] 09-01-2018 zoster vaccine recombinant Shukri Jeong MD Work Phone: [facility] 02-17-2018 Seasonal trivalent influenza vaccine, adjuvanted, preservative free Shukri Jeong MD Work Phone: [facility] 08-26-2017 pneumococcal polysaccharide vaccine, 23 valent Shukri Jeong MD Work Phone: [facility] 02-10-2017 influenza virus vacc ine, unspecified formulation Shukri Jeong MD Work Phone: [facility] 02-20-2016 influenza, seasonal, injectable, preservative free Shukri Jeong MD Work Phone: [facility] 10-09-2015 pneumococcal conjuga te vaccine, 13 valent Shukri Jeong MD Work Phone: [facility] 03-08-2015 Influenza TIV (IM) Shukri soto MD Work Phone: [facility] 07-07-2013 pneumococcal polysaccharide vaccine, 23 diaz Jeong MD Work Phone: [facility] 06-14-2007 pneumococcal polysaccharide vaccine, 23 diaz Jeong MD Work Phone: [facility] 02-26-1999 pneumococcal polysaccharide vaccine, 23 diaz Jeong MD Work Phone: [facility] Payers Date Payer Category Payer Medicare (Managed Care) 1.2. [id number] 2024 Self-pay 2024 Private Health Insurance [id number] 2023 Medicare [id number] 2022 Unknown BCBS [facility] HMO/PPO/TRUST [id number] 2022[facility] [phone] [place] [address] [id number] 2014 Medicare [id number] 2010 Medicare [id number]. [id number] 1959 Medicare [id number] 1959 Medicare [id number] 1959 Unknown [id number] 1945 Unknown [id number] 2.16.840.1.105594.3.579.2. 593 1945 Unknown [id number] 2.16.840.1.576037.3.579.2. 593 1945 Unknown [id number] 2.16.840.1.708862.3.579.2. 593 1945 Unknown [id number] 2.16.840.1.879136.3.579.2. 593 1945 Unknown [id number] 2.16.840.1.585727.3.579.2. 593 1945 Unknown [id number] 2.16.840.1.350600.3.579.2. 593 1945 Unknown [id number] 2.16.840.1.743764.3.579.2. 593 1945 Unknown [id number] 2.16.840.1.938473.3.579.2. 593 1945 Unknown [id number] 2.16.840.1.490653.3.579.2. 593 1945 Unknown [id number] 2.16.840.1.607494.3.579.2. 593 1945 Unknown [id number] 2.16.840.1.174725.3.579.2. 593 1945 Unknown [id number] 2.16.840.1.349079.3.579.2. 593 1945 Unknown [id number] 2.16.840.1.458614.3.579.2. 1259 1945 Unknown [id number] 2.16.840.1.302125.3.579.2. 1259 1945 Unknown [id number] 2.16.840.1.508372.3.579.2. 1286 1945 Unknown [id number] 2.16.840.1.542773.3.579.2. 1286 1945 Unknown [id number] 2.16.840.1.632847.3.579.2. 1286 Unknown [id number] 2.16.840.1.188426.3.579.2. 531 Social History Date Type Detail Facility Start: 02-22-2023 End: 02-07-2024 Tobacco smoking status NHIS Never smoked tobacco (finding) [facility] Start: 1945 Sex Assigned At Female F [facility] Start: 02-22-2023 End: 07-06-2024 History of Social function [facility] Start: 02-22-2023 End: 07-06-2024 Tobacco use panel [facility] Start: 1945 Sex assigned at Not on file P [facility] Start: 06-01-2022 Tobacco use and exposure Smoke less tobacco non-user [facility] Start: 03-02-2023 End: 05-08-2024 Alcohol intake Current drinker of alcohol (finding) [facility] Frequency of Communi cation with Friends and Family Three times a week [facility] Start: 03-09-2019 Education 14 [facility] Start: 01-15-2015 Sex Female (finding) [facility] Clinical Notes 06-23-2022 to 09-14-2024 Baltazar [...] Resource Strain: Low Risk (03/09/2019) Received from [facility] Overall Financial Resource Strain (CARDIA) Difficulty of Paying Living Expenses: Not hard at all Food Insecurity: No Food Insecurity (05/08/2024) Received from [facility] Hunger Screening Within the past 12 months we worried whether our food would run out before we got money to buy more.: Never True Within the past 12 months the food we bought just didn't last and we didn't have money to get more.: Never True Transportation Needs: No Transportation Needs (03/09/2019) Received from [facility] PRAPARE - Transportation Lack of Transportation (Medical): No Lack of Transportation (Non-Medical): No Physical Activity: Sufficiently Active (03/09/2019) Received from [facility] Exercise Vital Sign Days of Exercise per Week: 7 days Minutes of Exercise per Session: 50 min Stress: Stress Concern Present (03/09/2019) Received from [facility] - Occupational Stress Questionnaire Feeling of Stress : To some extent Social Connections: Socially Integrated (03/09/2019) Received from [employer] [facility] Social Connection and Isolation Panel [NHANES] Frequency of Communication with Friends and Family: Three times a week Frequency of Social Gatherings with Friends and Family: Three times a week Attends Catholic Services: More than 4 times per year [...] Baltazar Coronado DPM documented in this encounter [facility] 07-06-2024 History of Presen t illness [...] History: Diagnosis Date Breast cancer ([facility]) Medications: No current outpatient medications on file. [...] Resource Strain: Low Risk (03/09/2019) Received from [facility] Overall Financial Resource Strain (CARDIA) Difficulty of Paying Living Expenses: Not hard at all Food Insecurity: No Food Insecurity (05/08/2024) Received from [facility] Hunger Screening Within the past 12 months we worried whether our food would run out before we got money to buy more.: Never True Within the past 12 months the food we bought just didn't last and we didn't have money to get more.: Never True Transportation Needs: No Transportation Needs (03/09/2019) Received from [facility] PRAPARE - Transportation Lack of Transportation (Medical): No Lack of Transportation (Non-Medical): No Physical Activity: Sufficiently Active (03/09/2019) Received from [facility] Exercise Vital Sign Days of Exercise per Week: 7 days Minutes of Exercise per Session: 50 min Stress: Stress Concern Present (03/09/2019) Received from [facility] - Occupational Stress Questionnaire Feeling of Stress : To some extent Social Connections: Socially Integrated (03/09/2019) Received from [facility] Social Connection and Isolation Panel [NHANES] Frequency of Communication with Friends and Family: Three times a week Frequency of Social Gatherings with Friends and Family: Three times a week Attends Catholic Services: More than 4 times per year [...] Baltazar Coronado DPM documented in this encounter [facility] 05-08-2024 History of Presen t illness Narrative Mariela Lindsey Date of visit: 05/08/2024 Date of : 1945 Age: 78 y.o. Patient Active Problem List Diagnosis Benign essential hypertension Chronic right-sided low back pain with right-sided sciatica Dyslipidemia Malignant neoplasm of female breast ([facility]) Temporomandibular joint disorder Pseudophakia Medicare annual wellness visit, subsequent Pain in both knees Severe obesity (BMI 35.0-39.9) with comorbidity ([facility]) Gastroesophageal reflux disease with esophagitis Thoracic outlet syndrome Depressive disorder Tension headache Sprain of right rotator cuff capsule Spinal stenosis of lumbar region Facet arthritis of lumbar region Scoliosis of lumbar spine Abnormal echocardiogram Pulmonary hypertension ([facility]) Allergies Allergen Reactions Hay Fever And Allergy [...] 0.5 tablets before bedtime. 90 tablet 0 jnqnyxrs-fzxd-UG-calcium &mins (THERAGRAN-M) 9 mg iron-400 mcg tablet [...] History: Diagnosis Date Breast cancer ([facility]) 2013 RT GERD (gastroesophageal reflux disease) Hyperlipidemia Hypertension Menopausal syndrome (hot flashes) No data recorded No data recorded No data recorded Past Surgical History: Procedure Laterality Date APPENDECTOMY BELPHAROPTOSIS REPAIR Bilateral BLEPHAROPLASTY W/ LASER BREAST BIOPSY BREAST LUMPECTOMY Right 2013 RADIATION AND CHEMO Cardiac catheterization- Cors + Right heart + LV gram/press 22496 N/A 02/08/2023 Performed by Abdiel Lemus MD at [facility] CARDIAC CATH LABS CATARACT EXTRACTION Bilateral SECTION [...] 50 min Stress: Stress Concern Present (03/09/2019) [facility] - Occupational Stress Questionnaire Feeling of Stress : To some extent Social Connections: Socially Integrated (03/09/2019) Social Connection and Isolation Panel [NHANES] Frequency of Communication with Friends and Family: Three times a week Frequency of Social Gatherings with Friends and Family: Three times a week Attends Catholic Services: More than 4 times per year [...] medications. IMPRESSIONS/PLAN 1. Coronary artery disease involving teller coronary artery 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 angina pectoris - POCT EKG 2. Pulmonary hypertension (CMS-HCC) 3. Benign essential hypertension 4. Dyslipidemia 5. 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 PCP: HEATHER ZIMMERMAN Referring Physician: KANIKA BillTRIAL MANAGEMENT ASSOCIATE [id number] [place] [address] [facility]-05-2024 Miscellaneous Notes Called patient to remind them to bring their most current copy of their medication list with them to their appt. Patient verbalizes understanding. documented [facility] 05-05-2024 Telephone encounter Note Called patient to remind them to bring their most current copy of their medication list with them to their appt. Patient verbalizes understanding. [facility] Telephone encounter Note Patient called. I tracked order and aids arrived today from [employer]. Told patient the aids could be sent to [facility] where she can pick them up. [facility] hours were reviewed. [facility] 04-25-2024 Miscellaneous Notes Patient called. I tracked order and aids arrived today from [employer]. Told patient the aids could be sent to [facility] where she can pick them up. [facility] hours were reviewed. Pt wants us to call her at [phone] when her aids are back from repair [...] back from [employer] documented in this encounter [facility] 04-17-2024 Telephone encounter Note Pt wants us to call her at [phone] when her aids are back from repair [facility] Work Phone: 04-12-2024 Telephone encounter Note [...] her when aids are back from [employer] 03-30-2024 Miscellaneous Notes Last OV 03/02/23 Pt will call to make appt Last [facility] 12/18/22 Orders placed for BMP and Mg.slm documented in this encounter [facility] 03-30-2024 Telephone encounter Note Last OV 03/02/23 Pt will call to make appt Last [facility] 12/18/22 Orders placed for BMP and Mg.slm [facility] 09-24-2022 Note CONSULTATION CONSULTATION DATE: 09/24/2022 [...] this infrequently. She is no longer on Alba, since at least July. Her GERALDO on [...] our patients to inform us about any sfom-dfp-rocbpgk medications or herbal remedies/nutritional supplements/alternative remedies. 2. [...] with their primary care provider. [facility] 08-20-2022 Note CONSULTATION CONSULTATION DATE: [...] Medications include Celebrex 200 mg daily, multivitamin, Alba 5/325 daily p.r.n., Excedrin and baclofen 10 [...] L4, L5. She is to continue her Alba 5/325 daily p.r.n. and I highly encouraged her to use a heat rub and heat application once to twice daily. Patient agrees with this plan of care and will be brought back to the clinic thereafter. [facility] 07-23-2022 Note PAIN MANAGEMENT CONS [...] greatly aggravate her pain. Current medications include Alba 5/325 daily p.r.n., baclofen 10 mg q.h.s. [...] up in the office thereafter. [facility] 06-23-2022 Note CONSULTATION CONSULTATION DATE: [...] possibility of a neurosurgical consult at [facility]. The patient's PAST MEDICAL HISTORY / [...] PLAN: We will start the patient on Alba 5/325 one tablet p.o. daily. The patient [...] would like to proceed. CC: DEIRDRE [facility] Evaluation note No assessment inform ation available [facility] Work Phone: Evaluation note Diagnosis Metatarsal deformity, right- Primary Pain due to onychomycosis of toenails of both feet Metatarsal deformity, left documented in this encounter [facility]* Diagnosis Coronary artery disease involving teller coronary artery 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 angina pectoris- Primary [facility] Coronary artery disease involving teller coronary artery 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 angina pectoris- Primary Pulmonary hypertension (CMS-HCC) Other chronic pulmonary heart diseases Benign essential hypertension Essential hypertension, benign Dyslipidemia Other and unspecified hyperlipidemia Dyspnea on exertion Other dyspnea and respiratory abnormality documented in this [facility] Diagnosis Metatarsal deformity, left- Primary Pain due to onychomycosis of toenails of both feet Metatarsal deformity, right documented in this encounter [facility] on filedocumented in this encounterProMedims Health SystemInstructionsNot on filedocumented in this encounterPro[facility] System[facility]ructionsNot on filedocumented in this [facility] Summary Purpose Family History No [...] Documents on File Type Date Recorded 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 Living Will 10/11/2015 2:28 PM Chief Complaint and Reason for Visit Chief Complaint refractory anemia ev al for mds Additional Source Comments INFORMATION SOURCE (unrecogn ized section and content) DATE CREATED AUTHOR 12/02/2017 [facility] DATE CREATED AUTHOR AUTHOR'S ORGANIZ ATION 11/20/2022 [facility] DATE CREATED AUTHOR AUTHOR'S ORGANIZ ATION 02/12/2024 [facility] DATE CREATED AUTHOR AUTHOR'S ORGANIZ ATION 09/17/2024 [facility] EPIC DATE CREATED AUTHOR AUTHOR'S ORGANIZ ATION 11/08/2024 [facility] Care Teams (unrecognized sec tion and content) Team Status: Active Member Role Status Dates Chanell Chen APRN Primary Care Provider Active Team Status: Inactive Member Role Status Dates Claribel Pickett MD Attending Provider Active St art: February 07, 2024 End: February 07, 2024 Chanell Chen APRN Primary Care Provider Active Start: February 07, 2024 End: February 07, 2024 Humid System Operator Relationship Specialty Start Date End Date Adi Figueroa APRN-CNP [address] [place] [id number] PCP - General Primary Care 06/01/22 Humid System Operator Relationship Specialty Start Date End Date Adi Figueroa APRN-CNP [address] [place] [address] PCP - General Primary Care 06/01/22 Humid System Operator Relationship Specialty Start Date End Date Gustavo, Chanell, PIPE FITTER SUPERVISOR-POOL SERVICER [address] [facility] [place] [address] PCP - General Family Medicine 05/08/24 Humid System Operator Relationship Specialty Start Date End Date Adi FigueroaCAROLINE-TRIAL MANAGEMENT ASSOCIATE [address] [place], [place] [id number] PCP - General Primary Care 06/01/22 Humid System Operator Relationship Specialty Start Date End Date Unallocated, Christel Edmond MD [address] [place] [id number] PCP - General Family Medicine 09/14/24 Humid System Operator Relationship Specialty Start Date End Date Unallocated, Christel Edmond MD [address] [place] [id number] PCP - General Family Medicine 09/14/24 Goals [...] BE BASED ON THE PRIMARY CLINICAL RECORDS. [facility] [employer] [facility] provides no warranty or guarantee of the accuracy or completeness of information in this document.
--- OUTSIDE RECORDS SUMMARY | 2025-03-08 10:38 | XMS_ITS | Encounter Summary ---
Author Organization [facility] Address [address] [place] [address] Care Team Providers Care Ceo Na Name Role Phone Unallocated, Noms Provider Primary Care Provi ct Encounter Details Date Type Department Care Team ([facility] st Contact Info) Description 04/28/2021 Abstract [facility] [address] [place] [place] [phone] Kimberlee Garza, [facility] [address] [facility] [place] [address] Social History Tobacco Use Types Packs/Day Years [...] on filedocumented in this encounter Care Teams Ceo Na Relationship Specialty Start Date End Date Unallocated, Noms Provider, [place] [address] PCP - General Family Medicine 09/14/24 documented as of this encounter
--- OUTSIDE RECORDS SUMMARY | 2025-03-08 10:38 | XMS_ITS | Encounter Summary ---
Author Organization [facility] Address [address] [place] [address] Care Team Providers Care School Bus Driver Name Role Phone Unallocated, Noms Provider Primary Care Provi ct Encounter Details Date Type Department Care Team ([facility] st Contact Info) Description 05/21/2021 Abstract [facility] [address] [place] [phone] Kimberlee Garza, [facility] [address] [facility] [place] [address] Social History Tobacco Use Types Packs/Day Years [...] on filedocumented in this encounter Care Teams School Bus Driver Relationship Specialty Start Date End Date Unallocated, Noms Provider, [place] [address] PCP - General Family Medicine 09/14/24 documented as of this encounter
--- OUTSIDE RECORDS SUMMARY | 2025-03-08 10:38 | XMS_ITS | Encounter Summary ---
Author Organization [facility] Address [address] [place] [address] Care Team Providers Care Uniform Attendant Name Role Phone Unallocated, Noms Provider Primary Care Provi ct Encounter Details Date Type Department Care Team ([facility] st Contact Info) Description 05/21/2021 Abstract [facility] [address] [facility] [place] [address] Kimberlee Garza, [facility] [address] [place] [address] Social History Tobacco Use Types Packs/Day Years [...] on filedocumented in this encounter Care Teams Uniform Attendant Relationship Specialty Start Date End Date Unallocated, Noms Provider, [place] [address] PCP - General Family Medicine 09/14/24 documented as of this encounter
[2025-03-08 11:15] LABS: Hematocrit 29.9 % (36.0-48.0); Hemoglobin 9.9 g/dL (12.0-16.0); Immature Granulocytes Abs Auto 0.02 10^3/uL (0.00-0.03); Immature Granulocytes Pct Auto 0.3 % (0.0-0.5); Lymphocytes Absolute Auto 1.2 10^3/uL (1.2-3.8); Mean Corpuscular HGB Conc 33.1 g/dL (29.9-35.2); Mean Corpuscular Hemoglobin 33.7 pg (26.7-34.0); Mean Corpuscular Volume 101.7 fL (81.0-99.0); Platelet Count 236 10^3/uL (150-450); Red Blood Count 2.94 10^6/uL (4.20-5.40); White Blood Count 6.1 10^3/uL (4.0-11.0)
[2025-03-08 11:32] LABS: Alanine Aminotransferase 25 U/L (14-59); Albumin Globulin Ratio 1.1; Albumin Level 3.9 g/dL (3.4-5.0); Alkaline Phosphatase 82 U/L (46-116); Anion Gap 13.8; Aspartate Amino Transferase 17 U/L (15-37); Blood Urea Nitrogen 21.0 mg/dL (7.0-18.0); Calcium 9.2 mg/dL (8.5-10.1); Carbon Dioxide 23.1 mmol/L (21.0-32.0); Chloride 104 mmol/L (98-107); Estimated GFR (African America 52 (>=60 mL/min/1.73m^2); Estimated GFR (Non-African Ame 43 (>=60 mL/min/1.73m^2); Globulin 3.6 g/dL; Glucose 96 mg/dL (74-106); Potassium 4.9 mmol/L (3.5-5.1); Sodium 136 mmol/L (136-145); Total Protein 7.5 g/dL (6.4-8.2)
[2025-03-08 11:33] LABS: Iron 84.0 ug/dL (50.0-170.0); Percent Iron Saturation 25.1 %; Total Iron Binding Capacity 335.0 ug/dL (250.0-450.0)
[2025-03-08 11:55] LABS: Ferritin 44.0 ng/mL (8.0-252.0); Folate 39.30 ng/mL (8.60-58.90)
[2025-03-09 08:09] LABS: Vitamin B12 1018 pg/mL (232-1245)
== END 2025-03-08 10:34 | disposition home or self-care (01) ==
LOC: LAB 10:33
PROVIDERS: Visit Provider Internal Medicine Hematology & Oncology
DX: D64.9 Anemia, unspecified (principal); D50.9 Iron deficiency anemia, unspecified; K90.9 Intestinal malabsorption, unspecified
CPT/HCPCS: 36415; 80053; 82306; 82607; 82728; 82746; 83540; 83550; 85025

== ENCOUNTER 2025-03-13 08:53 | Outpatient (RCR) | payer MEDICARE, SELFPAY | END 2025-03-13 23:59 | disposition home or self-care (01) | LOC: HEMC 08:53 | PROVIDERS: Visit Provider Internal Medicine Hematology & Oncology | DX: D50.9 Iron deficiency anemia, unspecified (principal); Z85.3 Personal history of malignant neoplasm of breast; I10 Essential (primary) hypertension; M19.90 Unspecified osteoarthritis, unspecified site; K21.9 Gastro-esophageal reflux disease without esophagitis; K27.9 Peptic ulcer, site unspecified, unspecified as acute or chronic, without hemorrhage or perforation; F41.9 Anxiety disorder, unspecified; F32.A Depression, unspecified; M54.31 Sciatica, right side; Z90.49 Acquired absence of other specified parts of digestive tract; Z90.711 Acquired absence of uterus with remaining cervical stump; D64.9 Anemia, unspecified; K90.9 Intestinal malabsorption, unspecified; R06.02 Shortness of breath | CPT/HCPCS: G0463 ==

== ENCOUNTER 2025-03-26 06:37 | Outpatient (OUT) | payer MEDICARE, SELFPAY ==
--- OUTSIDE RECORDS SUMMARY | 2025-03-26 06:41 | XMS_ITS | CCD ---
Author Organization [facility] Care Team Providers Care Java Jsf Developer Name Role Phone KENZIE ALMONTE Unavailable Unavailable [...] Unavailable SHAMMO, ADI Primary Care Unavailable SHAMMO, AID Attending Unavailable SHAMMO, ADI Admitting Unavailable DR JAMIR SANCHEZ Consulting Unavailable SHAMMO, ADI Consulting Unavailable MISC, DR CABRERA Attending Unavailable CARY, DR JOSE RAFAEL Mendes Consulting Unavailable MISC, [...] Consulting Unavailable MD Claribel Pickett Attending Provider Haivana Nakya, [facility] Primary Care Provider [phone] Claribel Pickett Attending Unavailable Claribel Pickett Admitting Unavailable [facility] Primary Care Unavailable Unavailable Primary Care Provider Unavailabl e Shammo TUYERE FITTER-TUG HAND, [facility] Primary Care Provider Gustavo TUYERE FITTER-HAND STONE POLISHER, Arlee Primary Care Provider Unallocated Christel BOBBY Provider Primary Care Provi ct BALTAZAR CORONADO Attending Unavailable BALTAZAR CORONADO Attending Unavailable BOONE JHA Referring Unavailable SHAMMO, ADI Primary Care Unavailable KEN JONES Attending Unavailable SHAMMO, ADI Referring Unavailable [facility] Primary Care Unavailable TABITHA CANO Referring Unavailable [facility] Primary Care Unavailable Allergies Allergy Classification Reported Allergen(s) Allergy Type Date of Onset Reaction(s) Facility (5 sources) Hay Fever And Allergy Relief; Translations: [HAY FEVER AND ALLERGY RELIEF] Propensity to adverse reactions to drug 06-20-2014 [facility] (5 sources) Other; Translations: [OTHER] Propensity to adverse reactions 12-24-2015 [facility] Medications Current Medications Medication Drug Class(es) Dates [...] per tablet Indications: 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 Indications: lack in minerals, vitamin deficiency. 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 Patients having hematocrit values >55% require a special collection tube for coagulation studies. Please contact the laboratory at [phone] for redraw instructions. Automated basophil %Ordered By: Claribel Pickett on 02-07-2024 Basophils/100 WBC (Bld) 0.6 % Normal . [facility] Comment on above: Order Comment: STAT FOR CT BX Performed By: #### C BC, PP #### [facility] [address] Automated basophil countOrde red By: Claribel Pickett on 02-07-2024 Basophils (Bld) [#/Vol] 0.0 10*3/uL Normal 0.0-0.2 [facility] Comment on above: Order Comment: STAT FOR CT BX Result Comment: PERF ORMED BY: [place] [address] PATHOLOGIST DUAL HOSE CEMENTER KATRINA PATTERSON M.D. Performed By: #### C BC, PP #### [address] Automated blood monocyte cou ntOrdered By: Claribel Pickett on 02-07-2024 Monocytes (Bld) [#/Vol] 0.6 10*3/uL Normal 0.0-0.8 [facility] Comment on above: Order Comment: STAT FOR CT BX Performed By: #### C BC, PP #### [address] Automated eosinophil %Ordere d By: Claribel Nieves on 02-07-2024 Eosinophils/100 WBC (Bld) 2.5 % Normal . [facility] Comment on above: Order Comment: STAT FOR CT BX Performed By: #### C BC, PP #### [address] Automated eosinophil countOr dered By: Claribel Nieves on 02-07-2024 Eosinophils (Bld) [#/Vol] 0.2 10*3/uL Normal 0.0-0.45 [facility] Comment on above: Order Comment: STAT FOR CT BX Performed By: #### C BC, PP #### [address] Automated monocyte %Ordered By: Claribel Nieves on 02-07-2024 Monocytes/100 WBC (Bld) 7.6 % Normal . [facility] Comment on above: Order Comment: STAT FOR CT BX Performed By: #### C BC, PP #### [address] Automated neutrophil %Ordere d By: Claribel Nieves on 02-07-2024 Neutrophils/100 WBC (Bld) 72.6 % Normal . [facility] Comment on above: Order Comment: STAT FOR CT BX Performed By: #### C BC, PP #### [place] [address] [place] [address] guided bone marrow bx/asp iron 02-07-2024 CT guided bone marrow bx/aspir [facility] [place] [address] [place] [address] CT Scan Report Signed Patient: Elli Lindsey MR#: [id number] : 1945 Acct:[id number] Age/Sex: 78 / F ADM Date: 02/07/24 Loc: CT Room: Type: [facility] Attending Dr: Claribel Pickett MD [...] local anesthesia. Utilizing CT guidance, an 11-gauge [place] biopsy needle was advanced into the right [...] Adams Jr., D.O.02/07/2024 2:08 PM Dictation Location: [place] [address] Transcribed By: [facility] 02/07/24 1408 Dictated By: Sebastian Adams Jr, DO 02/07/24 1407 Signed By: 02/07/24 1408 Normal [facility] Coagulation Profileon 2023 aPTT Coag (Bld) [Time] 36.0 s Normal 25.1-36.5 [facility] Comment on above: Order Comment: STAT FOR CT BX Result Comment: A he matocrit value greater than 55% may lead to inaccurate results in coagulation testing. Patients having hematocrit values >55% require a special collection tube for coagulation studies. Please contact the laboratory at [phone] for redraw instructions. PERFORMED BY: [place] [address] PATHOLOGIST DUAL HOSE CEMENTER KATRINA PATTERSON M.D. Performed By: #### C BC, PP #### [address] Complete Blood Count Auto Di ffon 02-07-2024 Mean Corpuscular HGB Conc 34.1 g/dL Normal 32.0-35.0 [facility] Comment on above: Order Comment: STAT FOR CT BX Performed By: #### C BC, PP #### [address] NRBC% 0.0 /100{WBC} Normal 0-0.5 [facility] Comment on above: Order Comment: STAT FOR CT BX Performed By: #### C BC, PP #### [address] Erythrocyte distribution wid th [Ratio] by Automated countOrdered By: Claribel Pickett on 02-07-2024 Erythrocyte distribution width (RBC) [Ratio] 13.8 % Normal 11.9-15.3 [facility] Comment on above: Order Comment: STAT FOR CT BX Performed By: #### C BC, PP #### [address] Erythrocytes [#/volume] in B lood by Automated countOrdered By: Claribel Pickett on 02-07-2024 RBC (Bld) [#/Vol] 3.45 10*6/uL Low 3.60-5.00 [facility] Comment on above: Order Comment: STAT FOR CT BX Performed By: #### C BC, PP #### [address] Hematocrit [Volume Fraction] of Blood by Automated countOrdered By: Claribel Pickett on 02-07-2024 Hematocrit (Bld) [Volume fraction] 33.8 % Low 34.0-46.4 [facility] Comment on above: Order Comment: STAT FOR CT BX Performed By: #### C BC, PP #### [facility] [address] Hemoglobin [Mass/volume] in BloodOrdered By: Claribel Pickett on 02-07-2024 Hemoglobin (Bld) [Mass/Vol] 11.5 g/dL Low 11.8-15.4 [facility] Comment on above: Order Comment: STAT FOR CT BX Performed By: #### C BC, PP #### [facility] [address] [place] [address] INR in Platelet poor plasma by Coagulation assayOrdered By: Claribel Pickett on 02-07-2024 INR Coag (PPP) [Relative time] 1.0 {INR} Normal [facility] Comment on above: INR Therapeutic Rang [...] Performed By: #### C BC, PP #### [facility] [address] [place] [address] Leukocytes [#/volume] correc deinta for nucleated erythrocytes in Blood by Automated counOrdered By: Claribel Pickett on 02-07-2024 WBC corrected for nucl RBC Auto (Bld) [#/Vol] 8.0 10*3/uL 3.8-11.6 [facility] Leukocytes [#/volume] in Blo od by Automated countOrdered By: Claribel Pickett on 02-07-2024 WBC (Bld) [#/Vol] 8.0 10*3/uL Normal 3.8-11.6 [facility] Comment on above: Order Comment: STAT FOR CT BX Performed By: #### C BC, PP #### [facility] [address] [place] [address] [place] Lymphocytes [#/volume] in Bl ood by Automated countOrdered By: Claribel Pickett on 02-07-2024 Lymphocytes (Bld) [#/Vol] 1.3 10*3/uL Normal 1.00-4.8 [facility] Comment on above: Order Comment: STAT FOR CT BX Performed By: #### C BC, PP #### [address] Lymphocytes/100 leukocytes i n Blood by Automated countOrdered By: Claribel Pickett on 02-07-2024 Lymphocytes/100 WBC (Bld) 16.7 % Normal . [facility] Comment on above: Order Comment: STAT FOR CT BX Performed By: #### C BC, PP #### [address] MCH [Entitic mass] by Automa denita countOrdered By: Claribel Pickett on 02-07-2024 MCH (RBC) [Entitic mass] 33.5 pg Normal 24.7-34.3 [facility] Comment on above: Order Comment: STAT FOR CT BX Performed By: #### C BC, PP #### [address] MCHC Auto (RBC) [Mass/Vol]Or dered By: Claribelvannessa Pickett on 02-07-2024 MCHC (RBC) [Mass/Vol] 34.1 g/dL 32.0-35.0 [facility] MCV [Entitic volume] by Auto mated countOrdered By: Claribel Pickett on 02-07-2024 MCV (RBC) [Entitic vol] 98.1 fL Normal 80-100 [facility] Comment on above: Order Comment: STAT FOR CT BX Performed By: #### C BC, PP #### [place] [address] [place] Neutrophils [#/volume] in Bl ood by Automated countOrdered By: Claribel Pickett on 02-07-2024 Neutrophils (Bld) [#/Vol] 5.8 10*3/uL Normal 1.8-7.7 [facility] Comment on above: Order Comment: STAT FOR CT BX Performed By: #### C BC, PP #### [address] Nucleated erythrocytes [Pres ence] in Blood by Automated countOrdered By: Claribel Pickett on 02-07-2024 Nucleated RBC Auto Ql (Bld) 0.0 /100{WBC} 0-0.5 [facility] Pathology Request for Lab Co rpon 02-07-2024 Pathology Request for Lab Samir Normal [facility] Comment on above: Order Comment: BM BI OPSY Result Comment: See report. Scanned copy available in EMR. PERFORMED BY: [place] [address] PATHOLOGIST DUAL HOSE CEMENTER KATRINA PATTERSON M.D. Performed By: #### P ATH TO [facility] #### [address] Platelet mean volume [Entiti c volume] in Blood by Automated countOrdered By: Claribel Pickett on 02-07-2024 Platelet mean volume (Bld) [Entitic vol] 7.2 fL Normal 6.3-10.7 [facility] Comment on above: Order Comment: STAT FOR CT BX Performed By: #### C BC, PP #### [address] Platelets [#/volume] in Bloo d by Automated countOrdered By: Claribel Pickett on 02-07-2024 Platelets (Bld) [#/Vol] 271 10*3/uL Normal 150-450 [facility] Comment on above: Order Comment: STAT FOR CT BX Performed By: #### C BC, PP #### [address] Prothrombin time (PT)Ordered By: Claribel Pickett on 02-07-2024 PT Coag (PPP) [Time] 11.8 s Normal 9.0-12.9 [facility] Comment on above: A hematocrit value g reater than 55% may lead to inaccurate results in coagulation testing. Patients having hematocrit values >55% require a special collection tube for coagulation studies. Please contact the laboratory at [phone] for redraw instructions. Order Comment: STAT FOR CT BX Result Comment: A he matocrit value greater than 55% may lead to inaccurate results in coagulation testing. Patients having hematocrit values >55% require a special collection tube for coagulation studies. Please contact the laboratory at [phone] for redraw instructions. Performed By: #### C BC, PP #### [facility] [address] [place] [address] XR KNEE RT 3 VWSon XR KNEE [...] Garcia MD on 01/26/2024 10:55 PM Normal [facility] US CAROTID ART BILon 05-26-2 023 [...] by: JAMIR SANCHEZ Date: 2022-11-06 05:46 Normal [facility] BNPon 11-05-2022 Natriuretic peptide B (Bld) [Mass/Vol] 55.0 pg/mL Normal <=1,800.0 [facility] Comment on above: Performed By: #### H STROPN, CMP, BNP, MG #### [facility] [address] [place] [address] [address] Linda Park ECHOCARDIO M/2D COMPLETEon 0 11-05-2022 ECHOCARDIO M/2D COMPLETE Patient: ELLI LINDSEY Exam Date: 11/05/2022 : 1945 Gender:F Ordering : ADI FIGUEROA Admission #: [id number] Family : Order #: [id number] CLICK HERE TO VIEW EXAM ECHOCARDIOGRAM REPORT [...] Lopez M.D. on 11/08/2022 at 15:17 Normal [facility] MAGNESIUMon 11-05-2022 Magnesium [Mass/Vol] 2.0 mg/dL Normal 1.8-2.4 [facility] Comment on above: Performed By: #### H STROPN, CMP, BNP, MG #### [facility] [address] [place] [address] Dr. Linda Park PROF 14(COMP METB)on 023 Albumin [Mass/Vol] 3.7 g/dL Normal 3.4-5.0 [facility] Comment on above: Performed By: #### H STROPN, CMP, BNP, MG #### [facility] [address] [place] [address] Dr. Linda Park Albumin/Globulin [Mass ratio] 1.1 {ratio} Normal [facility] Comment on above: Performed By: #### H STROPN, CMP, BNP, MG #### [facility] [address] [place] [address] Dr. Linda Park ALP [Catalytic activity/Vol] 84 U/L Normal 46-116 [facility] Comment on above: Performed By: #### H STROPN, CMP, BNP, MG #### [facility] [address] [place] [address] Dr. Linda Park ALT [Catalytic activity/Vol] 17 U/L Normal 14-59 [facility] Comment on above: Performed By: #### H STROPN, CMP, BNP, MG #### [facility] [address] [place] [address] [address] Linda Park Anion gap [Moles/Vol] 10.8 mmol/L Normal [facility] Comment on above: Performed By: #### H STROPN, CMP, BNP, MG #### [facility] [address] [place] [address] [address] Linda Park AST [Catalytic activity/Vol] 15 U/L Normal 15-37 [facility] Comment on above: Performed By: #### H STROPN, CMP, BNP, MG #### [facility] [address] [place] [address] [address] Linda Park Bilirubin [Mass/Vol] 0.2 mg/dL Normal 0.2-1.0 [facility] Comment on above: Performed By: #### H STROPN, CMP, BNP, MG #### [facility] [address] [place] [address] Dr. Linda Park Calcium [Mass/Vol] 9.1 mg/dL Normal 8.5-10.1 [facility] Comment on above: Performed By: #### H STROPN, CMP, BNP, MG #### [facility] [address] [place] [address] [address] Linda Park Chloride [Moles/Vol] 104 mmol/L Normal 98-107 [facility] Comment on above: Performed By: #### H STROPN, CMP, BNP, MG #### [facility] [address] [place] [address] [address] Linda Park CO2 [Moles/Vol] 30.8 mmol/L Normal 21.0-32.0 [facility] Comment on above: Performed By: #### H STROPN, CMP, BNP, MG #### [facility] [address] [place] [address] [address] Linda Park Creatinine [Mass/Vol] 0.94 mg/dL Normal 0.55-1.02 [facility] Comment on above: Performed By: #### H STROPN, CMP, BNP, MG #### [facility] [address] [place] [address] [address] Linda Park EGFR-AF GAMBIAN >60 Normal >=60 [facility] Comment on above: Performed By: #### H STROPN, CMP, BNP, MG #### [facility] [address] [place] [address] [address] Linda Park EGFR-NON AF GAMBIAN 58 mL/min/1.73m2 Critically low >=60 [facility] Comment on above: Performed By: #### H STROPN, CMP, BNP, MG #### [facility] [address] [place] [address] [address] Linda Park Globulin (S) [Mass/Vol] 3.5 g/dL Normal [facility] Comment on above: Performed By: #### H STROPN, CMP, BNP, MG #### [facility] [address] [place] [address] Dr. Linda Park Glucose [Mass/Vol] 78 mg/dL Normal 74-106 [facility] Comment on above: Performed By: #### H STROPN, CMP, BNP, MG #### [facility] [address] [place] [address] [address] Linda Park Potassium [Moles/Vol] 4.6 mmol/L Normal 3.5-5.1 [facility] Comment on above: Performed By: #### H STROPN, CMP, BNP, MG #### [facility] [address] [place] [address] Dr. Linda Park Protein [Mass/Vol] 7.2 g/dL Normal 6.4-8.2 [facility] Comment on above: Performed By: #### H STROPN, CMP, BNP, MG #### [facility] [address] [place] [address] Dr. Linda Park Sodium [Moles/Vol] 141 mmol/L Normal 136-145 [facility] Comment on above: Performed By: #### H STROPN, CMP, BNP, MG #### [facility] [address] [place] [address] Dr. Linda Park Urea nitrogen [Mass/Vol] 17.0 mg/dL Normal 7.0-18.0 [facility] Comment on above: Performed By: #### H STROPN, CMP, BNP, MG #### [facility] [address] [place], [place] [address] Dr. Linda Park Urea nitrogen/Creatinin e [Mass ratio] 18.1 mg/mg Normal [facility] Comment on above: Performed By: #### H STROPN, CMP, BNP, MG #### [facility] [address] [place] [address] [address] Linda Park TROPONIN, HIGH SENSITIVITYon 11-05-2022 HSTROP 9.2 pg/mL Normal 4.0-51.3 [facility] Comment on above: Result Comment: CUT- OFF POINTS HAVE BEEN ESTABLISHED BASED ON THE FOURTH UNIVERSAL DEFINITIONS OF MYOCARDIAL INFARCTION. THE UPPER REFERENCE LIMIT (URL) OF TROPONIN, DEFINED THE 99TH PERCENTILE OF cTnI DISTRIBUTION IN A REFERENCE POPULATION, HAS BEEN CONFIRMED THE DECISION THRESHOLD FOR DE DIAGNOSIS. Performed By: #### H STROPN, CMP, BNP, MG #### [facility] [address] [place] [address] [address] Linda Park XR CHEST 2 Von [...] TERRENCE ALBERTO Date: 2022-11-05 18:32 Normal [facility] HEMOGRAM AND PLATELon 2022 Hematocrit (Bld) [Volume fraction] 27.8 % Critically low 36.0-48.0 [facility] Comment on above: Performed By: #### H STROPN, CMP, BNP, MG #### [facility] [address] [place] [address] [address] Linda Park Hemoglobin (Bld) [Mass/Vol] 8.8 g/dL Critically low 12.0-16.0 [facility] Comment on above: Performed By: #### H STROPN, CMP, BNP, MG #### [facility] [address] [place] [address] [address] Linda Park MCH (RBC) [Entitic mass] 29.0 pg Normal 26.7-34.0 [facility] Comment on above: Performed By: #### H STROPN, CMP, BNP, MG #### [facility] [address] [place] [address] [address] Linda Park MCHC (RBC) [Mass/Vol] 31.7 g/dL Normal 29.9-35.2 [facility] Comment on above: Performed By: #### H STROPN, CMP, BNP, MG #### [facility] [address] [place] [address] [address] Linda Park MCV (RBC) [Entitic vol] 91.7 fL Normal 81.0-99.0 [facility] Comment on above: Performed By: #### H STROPN, CMP, BNP, MG #### [facility] [address] [place] [address] Dr. Linda Park PLT 217 103/ul Normal 150-450 [facility] Comment on above: Performed By: #### H STROPN, CMP, BNP, MG #### [facility] [address] [place] [address] [address] Linda Park RBC 3.03 106/ul Critically low 4.20-5.40 [facility] Comment on above: Performed By: #### H STROPN, CMP, BNP, MG #### [facility] [address] [place] [address] Dr. Linda Park WBC 6.4 103/ul Normal 4.0-11.0 [facility] Comment on above: Performed By: #### H STROPN, CMP, BNP, MG #### [facility] [address] [place] [address] Dr. Linda Park LIPID PROFILEon 08-24-2022 CHOL-HDL RATIO NORM SEE BELOW Normal [facility] Comment on above: Result Comment: 3.3 - 4.4 LOW RISK 4.4 - 7.1 AVERAGE RISK 7.1 - 11.0 MODERATE RISK >11.0 HIGH RISK Performed By: #### H STROPN, CMP, BNP, MG #### [facility] [address] [place] [address] [address] Linda Park Cholesterol [Mass/Vol] 166 mg/dL Normal <=200 [facility] Comment on above: Performed By: #### H STROPN, CMP, BNP, MG #### [facility] [address] [place] [address] [address] Linda Park Cholesterol in HDL [Mass/Vol] 54 mg/dL Normal 40-60 [facility] Comment on above: Performed By: #### H STROPN, CMP, BNP, MG #### [facility] [address] [address] [address] Linda Park Cholesterol in LDL [Mass/Vol] 70.8 mg/dL Normal [facility] Comment on above: Performed By: #### H STROPN, CMP, BNP, MG #### [facility] [address] [place] [address] [address] Linda Park Cholesterol.total/ Cholesterol in HDL [Mass ratio] 3.1 {ratio} Normal [facility] Comment on above: Performed By: #### H STROPN, CMP, BNP, MG #### [facility] [address] [place] [address] [address] Linda Park HDL NORMAL > or = 60 mg/dl - LO W CARDIOVASCULAR RISK <40 mg/dl - HIGH CARDIOVASCULAR RISK Normal [facility] Comment on above: Performed By: #### H STROPN, CMP, BNP, MG #### [facility] [address] [place] [address] [address] Linda Park LDL CALC NORMAL SEE BELOW Normal [facility] Comment on above: Result Comment: <100 mg/dl OPTIMAL 100 - 129 mg/dl NEAR OR ABOVE OPTIMAL 130 - 159 mg/dl BORDERLINE HIGH 160 - 189 mg/dl HIGH >190 mg/dl VERY HIGH Performed By: #### H STROPN, CMP, BNP, MG #### [facility] [address] [address] [address] Linda Park Triglyceride [Mass/Vol] 206 mg/dL Critically high <=150 [facility] Comment on above: Performed By: #### H STROPN, CMP, BNP, MG #### [facility] [address] [address] [address] Linda Park VLDL CALC 41.2 mg/dL Normal [facility] Comment on above: Performed By: #### H STROPN, CMP, BNP, MG #### [facility] [address] [address] [address] Linda Park PROF 14(COMP METB)on 023 Albumin [Mass/Vol] 3.7 g/dL Normal 3.4-5.0 [facility] Comment on above: Performed By: #### H STROPN, CMP, BNP, MG #### [facility] [address] [address] [address] Linda Park Albumin/Globulin [Mass ratio] 1.1 {ratio} Normal [facility] Comment on above: Performed By: #### H STROPN, CMP, BNP, MG #### [facility] [address] [address] [address] Linda Park ALP [Catalytic activity/Vol] 84 U/L Normal 46-116 [facility] Comment on above: Performed By: #### H STROPN, CMP, BNP, MG #### [facility] [address] [address] [address] Linda Park ALT [Catalytic activity/Vol] 17 U/L Normal 14-59 [facility] Comment on above: Performed By: #### H STROPN, CMP, BNP, MG #### [facility] [address] [address] [address] Linda Park Anion gap [Moles/Vol] 11.8 mmol/L Normal [facility] Comment on above: Performed By: #### H STROPN, CMP, BNP, MG #### [facility] [address] [address] [address] Linda Park AST [Catalytic activity/Vol] 19 U/L Normal 15-37 [facility] Comment on above: Performed By: #### H STROPN, CMP, BNP, MG #### [facility] [address] [place] [address] Dr. Linda Park Bilirubin [Mass/Vol] 0.4 mg/dL Normal 0.2-1.0 [facility] Comment on above: Performed By: #### H STROPN, CMP, BNP, MG #### [facility] [address] [address] [address] Linda Park Calcium [Mass/Vol] 9.5 mg/dL Normal 8.5-10.1 [facility] Comment on above: Performed By: #### H STROPN, CMP, BNP, MG #### [facility] [address] [place] [address] Dr. Linda Park Chloride [Moles/Vol] 104 mmol/L Normal 98-107 [facility] Comment on above: Performed By: #### H STROPN, CMP, BNP, MG #### [facility] [address] [place] [address] Dr. Linda Park CO2 [Moles/Vol] 28.6 mmol/L Normal 21.0-32.0 [facility] Comment on above: Performed By: #### H STROPN, CMP, BNP, MG #### [facility] [address] [place] [address] Dr. Linda Park Creatinine [Mass/Vol] 0.87 mg/dL Normal 0.55-1.02 [facility] Comment on above: Performed By: #### H STROPN, CMP, BNP, MG #### [facility] [address] [place] [address] Dr. Linda Park EGFR-AF GAMBIAN >60 Normal >=60 [facility] Comment on above: Performed By: #### H STROPN, CMP, BNP, MG #### [facility] [address] [place] [address] Dr. Linda Park EGFR-NON AF GAMBIAN >60 Normal >=60 [facility] Comment on above: Performed By: #### H STROPN, CMP, BNP, MG #### [facility] [address] [address] [address] Linda Park Globulin (S) [Mass/Vol] 3.3 g/dL Normal [facility] Comment on above: Performed By: #### H STROPN, CMP, BNP, MG #### [facility] [address] [address] [address] Linda Park Glucose [Mass/Vol] 95 mg/dL Normal 74-106 [facility] Comment on above: Performed By: #### H STROPN, CMP, BNP, MG #### [facility] [address] [place] [address] Dr. Linda Park Potassium [Moles/Vol] 4.4 mmol/L Normal 3.5-5.1 [facility] Comment on above: Performed By: #### H STROPN, CMP, BNP, MG #### [facility] [address] [place] [address] Dr. Linda Park Protein [Mass/Vol] 7.0 g/dL Normal 6.4-8.2 [facility] Comment on above: Performed By: #### H STROPN, CMP, BNP, MG #### [facility] [address] [place] [address] Dr. Linda Park Sodium [Moles/Vol] 140 mmol/L Normal 136-145 [facility] Comment on above: Performed By: #### H STROPN, CMP, BNP, MG #### [facility] [address] [place] [address] Dr. Linda Park Urea nitrogen [Mass/Vol] 14.0 mg/dL Normal 7.0-18.0 [facility] Comment on above: Performed By: #### H STROPN, CMP, BNP, MG #### [facility] [address] [place] [address] Dr. Linda Park Urea nitrogen/Creatinin e [Mass ratio] 16.1 mg/mg Normal [facility] Comment on above: Performed By: #### H STROPN, CMP, BNP, MG #### [facility] [address] [address] [address] Linda Park XR LSPINE MIN 4 [...] 2022-04-30 06:[address] [facility] MAMM SCREEN 3D GONZALEZ CADon 03-05-2022 MG MAMM SCREEN 3D GONZALEZ CAD Patient: ELLI LINDSEY Exam Date: 03/05/2022 : 1945 Gender:F Ordering : DR DOCTOR ZAVALA Admission #: [id number] Family : DR. SAMINA GEE M.D. Order #: [id number] CLICK HERE TO VIEW EXAM RADIOLOGY REPORT [...] unknown cancer at age 72. LOCATION: [facility] BREAST COMPOSITION: Scattered areas fibroglandular density. [...] Arndt MD on 03/05/2022 at 12:09 Normal [facility] Basic Metabolic Profon 09-30 (cont.) Normal [facility] Comment on above: Result Comment: Aver age GFR for 70 or more years old: 75 mL/min/1.73sq mChronic Kidney Disease: <60 mL/min/1.73sq mKidney failure: <15 mL/min/1.73sq meGFR calculated using average adult body mass. Additional eGFR calculator available at:http://[email or web address].Flytenow/multiple_crcl_2012.htmPerformed at [facility] [address] [place] [address] Performed By: #### C DP, ALCB, BMP, TSH ####[address] [address] Anion gap 13 mmol/L Normal 9-17 [facility] Comment on above: Performed By: #### C DP, ALCB, BMP, TSH ####[address] [address] BUN/CRE Ratio 26 High 9-20 [facility] Comment on above: Performed By: #### C DP, ALCB, BMP, TSH ####[address] [address] Calcium 9.4 mg/dL Normal 8.6-10.4 [facility] Comment on above: Performed By: #### C DP, ALCB, BMP, TSH ####[place] [address] Chloride 101 mmol/L Normal 98-107 [facility] Comment on above: Performed By: #### C DP, ALCB, BMP, TSH ####[facility] [address] CO2 25 mmol/L Normal 20-31 [facility] Comment on above: Performed By: #### C DP, ALCB, BMP, TSH ####[address] [address] Creatinine 0.66 mg/dL Normal 0.50-0.90 [facility] Comment on above: Performed By: #### C DP, ALCB, BMP, TSH ####[address] [address] eGFR (non-black) mL/min/{1.73_m2} Normal >60 [facility] Comment on above: Performed By: #### C DP, ALCB, BMP, TSH ####[address] [address] Glucose mass conc 92 mg/dL Normal 70-99 [facility] Comment on above: Performed By: #### C DP, ALCB, BMP, TSH ####[address] [address] Potassium molar conc 4.1 mmol/L Normal 3.7-5.3 [facility] Comment on above: Performed By: #### C DP, ALCB, BMP, TSH ####[address] [address] Sodium 139 mmol/L Normal 135-144 [facility] Comment on above: Performed By: #### C DP, ALCB, BMP, TSH ####[address] [address] Urea nitrogen 17 mg/dL Normal 8-23 [facility] Comment on above: Performed By: #### C DP, ALCB, BMP, TSH ####[address] [address] Staging: NOT REPORTED Normal [facility] Comment on above: Performed By: #### C DP, ALCB, BMP, TSH ####[address] [address] CBC with Diffon 09-30-2017 Abs. Basophil 0.00 k/uL Normal 0.0-0.2 [facility] Comment on above: Result Comment: Perf ormed at [facility] [address] [place] [address] Performed By: #### C DP, ALCB, BMP, TSH ####[place] [address] Abs.Neutrophil (Seg) 4.30 k/uL Normal 1.8-7.7 [facility] Comment on above: Performed By: #### C DP, ALCB, BMP, TSH ####[address] [address] Basophils/100 WBC Auto (Bld) 1 % Normal 0-2 [facility] Comment on above: Performed By: #### C DP, ALCB, BMP, TSH ####[address] [address] Eosinophils 0.10 10*3/uL Normal 0.0-0.4 [facility] Comment on above: Performed By: #### C DP, ALCB, BMP, TSH ####[place] [address] Eosinophils/100 leukocytes 3 % Normal 1-4 [facility] Comment on above: Performed By: #### C DP, ALCB, BMP, TSH ####[facility] [place] [address] Erythrocyte distribution width Auto Ratio (RBC) 13.6 % Normal 11.5-14.5 [facility] Comment on above: Performed By: #### C DP, ALCB, BMP, TSH ####[address] [address] Erythrocytes (RBC) 3.66 10*6/uL Low 4.0-5.2 [facility] Comment on above: Performed By: #### C DP, ALCB, BMP, TSH ####[facility] [place] [address] Hematocrit (HCT) 35.9 % Low 36-46 [facility] Comment on above: Performed By: #### C DP, ALCB, BMP, TSH ####[address] [address] Hemoglobin mass conc (Bld) 12.1 g/dL Normal 12.0-16.0 [facility] Comment on above: Performed By: #### C DP, ALCB, BMP, TSH ####[address] [address] Lymphocytes 1.00 10*3/uL Normal 1.0-4.8 [facility] Comment on above: Performed By: #### C DP, ALCB, BMP, TSH ####[address] [address] Lymphocytes/100 leukocytes 17 % Low 24-44 [facility] Comment on above: Performed By: #### C DP, ALCB, BMP, TSH ####[address] [place] [address] MCH 33.1 pg Normal 26-34 [facility] Comment on above: Performed By: #### C DP, ALCB, BMP, TSH ####[place] [address] MCHC mass conc (RBC) 33.7 g/dL Normal 31-37 [facility] Comment on above: Performed By: #### C DP, ALCB, BMP, TSH ####[address] [address] MCV 98.1 fL Normal 80-100 [facility] Comment on above: Performed By: #### C DP, ALCB, BMP, TSH ####[place] [address] Monocytes 0.30 10*3/uL Normal 0.2-0.8 [facility] Comment on above: Performed By: #### C DP, ALCB, BMP, TSH ####[place] [address] Monocytes/100 leukocytes 6 % Normal 1-7 [facility] Comment on above: Performed By: #### C DP, ALCB, BMP, TSH ####[place] [address] Neutrophil (Seg) 73 % High 36-66 [facility] Comment on above: Performed By: #### C DP, ALCB, BMP, TSH ####[place] [address] Platelet mean volume (PMV) 7.9 fL Normal 6.0-12.0 [facility] Comment on above: Performed By: #### C DP, ALCB, BMP, TSH ####[place] [address] Platelets 206 10*3/uL Normal 130-400 [facility] Comment on above: Performed By: #### C DP, ALCB, BMP, TSH ####[address] [address] WBC (Leukocytes) 5.8 10*3/uL Normal 3.5-11.0 [facility] Comment on above: Performed By: #### C DP, ALCB, BMP, TSH ####[address] [address] Auto Diff Performed NOT REPORTED Normal [facility] Comment on above: Performed By: #### C DP, ALCB, BMP, TSH ####[address] [address] Erythrocyte morphology NOT REPORTED Normal [facility] Comment on above: Performed By: #### C DP, ALCB, BMP, TSH ####[address] [address] Erythrocytes (RBC) NOT REPORTED Normal [facility] Comment on above: Performed By: #### C DP, ALCB, BMP, TSH ####[address] [address] Granulocytes/100 WBC (Bld) NOT REPORTED Normal 0.00-0.30 [facility] Comment on above: Performed By: #### C DP, ALCB, BMP, TSH ####[address] [address] Immature granulocytes #/vol (Bld) NOT REPORTED Normal 0 [facility] Comment on above: Performed By: #### C DP, ALCB, BMP, TSH ####[address] [address] Platelets NOT REPORTED Normal [facility] Comment on above: Performed By: #### C DP, ALCB, BMP, TSH ####[address] [address] WBC Morphology NOT REPORTED Normal [facility] Comment on above: Performed By: #### C DP, ALCB, BMP, TSH ####[address] [address] Drug Scr, Abuse, Uron 2017 Amphetamine(s),Ur Negative Normal [facility] Comment on above: Result Comment: (Pos itive cutoff 1000 ng/mL) Performed By: #### D AU ####[address] [address] Barbiturate(s),Ur Negative Normal NEG [facility] Comment on above: Result Comment: (Pos itive cutoff 200 ng/mL) Performed By: #### D AU ####[address] [address] Base excess Negative Normal NEG [facility] Comment on above: Result Comment: (Pos itive cutoff 300 ng/mL) Performed By: #### D AU ####[address] [address] Benzodiazepine(s) Positive Abnormal NEG [facility] Comment on above: Result Comment: (Pos itive cutoff 200 ng/mL) Performed By: #### D AU ####[address] [address] Cannabinoid(s),Ur Negative Normal [facility] Comment on above: Result Comment: (Pos itive cutoff 50 ng/mL) Performed By: #### D AU ####[address] [address] Interpretive Info Assay provides medic al screening only. The absence of expected drug(s) and/or Normal [facility] Comment on above: Result Comment: meta bolite(s) may indicate diluted or adulterated urine, limitations of testing or timing of collection.Testing for legal purposes should be confirmed by another method. To request confirmation of test result, please call the lab within 7 days of sample submission.Performed at [facility] [address] [place] [address] Performed By: #### D AU ####[address] [address] Opiate(s), Ur Negative Normal NEG [facility] Comment on above: Result Comment: (Pos itive cutoff 300 ng/mL) Performed By: #### D AU ####[address] [address] Oxycodone, Urine Positive Abnormal NEG [facility] Comment on above: Result Comment: (Pos itive cutoff 100 ng/mL) Performed By: #### D AU ####[address] [address] Phencyclidine, Ur Negative Normal NE[facility] Comment on above: Result Comment: (Pos itive cutoff 25 ng/mL) Performed By: #### D AU ####[address] [address] Urine, methadone presence Negative Normal NEG [facility] Comment on above: Result Comment: (Pos itive cutoff 300 ng/mL) Performed By: #### D AU ####[address] [address] Buprenorphrine, Ur NOT REPORTED Normal NEG [facility] Comment on above: Performed By: #### D AU ####[address] [address] MDMA, Urine NOT REPORTED Normal NEG [facility] Comment on above: Performed By: #### D AU ####[address] [address] Methamphetamine, Ur NOT REPORTED Normal NEG [facility] Comment on above: Performed By: #### D AU ####[address] [address] Propoxyphene,Urine NOT REPORTED Normal NEG [facility] Comment on above: Performed By: #### D AU ####[address] [address] Urine, tricyclic antidepressants NOT REPORTED Normal NEG [facility] Comment on above: Performed By: #### D AU ####[address] [address] Ethanol Alcoholon 09-30-2017 Ethanol mg/dL Normal <10 [facility] Comment on above: Performed By: #### C DP, ALCB, BMP, TSH ####[address] [address] Ethanol percent <0.010 Normal [facility] Comment on above: Result Comment: Perf ormed at [address] [place] [address] Performed By: #### C DP, ALCB, BMP, TSH ####[address] [address] Thyroid Stim. Horm.on 2017 Thyroid stimulating hormone (TSH) 0.87 m[IU]/L Normal 0.30-5.00 [facility] Comment on above: Result Comment: Perf ormed at [facility] [address] [place] [address] Performed By: #### C DP, ALCB, BMP, TSH ####[facility] [place] [address] [facility] DIGITAL DIAGNOSTIC BILAT ERALon 04-27-2017 [facility] DIGITAL DIAGNOSTIC BILATERAL This is a [...] sent to the patient regarding the results.[employer] recommends annual mammograms for women 40years and older.Interpreted by:TIM Robinigned by:Elli Aparicio MD04/27/17CC Recipients:Mark Francois MD - In Wander Gee - FaxFinal result Normal [facility] Vital Signs Date Time Vital [...] 152.4 cm Ken Jones MD Work Phone: [facility] 05-08-2024 12:37-0500 Body mass index (BMI) [Ratio] 36.29 kg/m2 Ken Jones MD Work Phone: [facility] 05-08-2024 12:37-0500 Body weight 84.28 kg Ken Jones MD Work Phone: [facility] 05-08-2024 12:37-0500 Diastolic blood pressure 98 mm[Hg] Ken Jones MD Work Phone: [facility] 05-08-2024 12:37-0500 Heart rate 73 /min Ken Jones MD Work Phone: [facility] 05-08-2024 12:37-0500 SaO2% (BldA) [Mass fraction] 97 % Ken Jones MD Work Phone: [facility] 05-08-2024 12:37-0500 Systolic blood pressure 144 mm[Hg] Ken Jones MD Work Phone: [facility] 02-07-2024 11:10-0400 Diastolic blood pressure 66 mm[Hg] CAROLINE Chen Work Phone: [facility] 02-07-2024 11:10-0400 Heart rate 65 /min CAROLINE Chen Work Phone: [facility] 02-07-2024 11:10-0400 Respiratory rate 16 /min TUYERE FITTERJose Chen Work Phone: [facility] 02-07-2024 11:10-0400 SaO2% (BldA) [Mass fraction] 98 % TUYERE FITTERJose Chen Work Phone: [facility] 02-07-2024 11:10-0400 Systolic blood pressure 127 mm[Hg] TUYERE FITTERJose Chen Work Phone: [facility] 02-07-2024 09:190400 Body height 154.94 cm TUYERE FITTERJose Chen Work Phone: [facility] 02-07-2024 09:0400 Body weight 81.19 kg TUYERE FITTERJose Chen Work Phone: [facility] Encounters Encounter Date Encounter Type Care Provider Facility Start: 11-01-2024 End: 11-01-2024 ambulatory [facility] Start: 09-14-2024 End: 09-14-2024 Bamboo flowsheet [...] on above: 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 (Primary Dx); Pulmonary hypertension ([facility]); Benign essential hypertension; Dyslipidemia; Dyspnea on exertion Start: 05-08-2024 End: 05-08-2024 [facility] Start: 05-05-2024 End: 05-05-2024 Telephone encounter Marsha Layne CMA [facility] Start: 04-12-2024 End: 04-26-2024 Telephone encounter Kimberlee Garza [facility] Work Phone: [facility] Comment on above: Hearing Aid Problem Start: 03-30-2024 End: 03-31-2024 Refill Denise Araiza RN [facility] Comment on above: Med Refill Start: 02-07-2024 End: 02-07-2024 Admission to same day surgery center CAROLINE Chen Work Phone: [facility] [place] Work Phone: Start: 02-07-2024 End: 02-07-2024 ambulatory CAROLINE Chen Work Phone: [facility] Work Phone: Start: 01-26-2024 End: 01-26-2024 ambulatory BOONE JHA [facility] Start: 07-12-2023 Orders Only Shukri Jeong MD Work Phone: [facility] Start: 11-05-2022 End: 11-06-2022 ambulatory ADI SHAMMO Facility:[facility] Start: 09-24-2022 End: 09-25-2022 ambulatory RCJACOB ALECKARIEPATRICIO . Facility:[facility] Start: 08-25-2022 Encounter for genera l adult medical examination without abnormal findings ADICARLOS FIGUEROA [facility] Start: 08-25-2022 Encounter for preprocedural cardiovascular examination DR BEAU WILDER . [facility] Start: 08-25-2022 End: 08-25-[address] [...] 09-30-2017 Emergency department patient visit MEGHANN GEE [facility] Start: 07-20-2017 Patient encounter procedure Shukri Jeong MD Work Phone: [facility] Start: 04-27-2017 End: 04-28-2017 Ambulatory KENZIE ALMONTE [facility] Procedures Date Procedure Procedure Detail [...] Td Vaccines (2 - Td or Tdap) [facility] Start: 05-08-2025 Tobacco Screening Tobacco Screening [facility] Start: 11-23-2024 End: 11-23-2024 Patient encounter procedure 11/23/2024 1:00 PM EDT Procedure Visit [facility] [address] [facility] [address] [place] [address] Baltazar Coronado DPM [address] [facility] [address] [place] [address] [facility] Start: 09-14-2024 End: 09-14-2024 Patient encounter procedure [facility] Comment on above: 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 (Primary Dx); Metatarsal deformity, left; Metatarsal deformity, right Start: 07-06-2024 End: 07-06-2024 Patient encounter procedure [facility] Comment on above: Arrived Start: 06-16-2024 COVID-19 Vaccine ( season) COVID-19 Vaccine () [facility] Start: 05-15-2024 End: 05-08-2025 Basic metabolic 2000 panel - Serum or Plasma Basic Metabolic Panel Lab Routine Coronary artery disease involving nome coronary artery of nome heart without angina pectoris Pulmonary hypertension ([facility]) Benign essential hypertension Dyslipidemia Dyspnea on exertion Expected: 05/15/2024, Expires: 05/08/2025 [facility] Work Phone: Comment on above: Expected: 05/15/2024 , Expires: 05/08/2025 Start: 05-09-2024 End: 05-09-2024 Patient encounter procedure 05/09/2024 10:00 AM EST Office Visit [facility] [address] [place] [id number] Ken Jones MD [address] [place] [address] [facility] Start: 05-08-2024 End: 05-08-2024 Patient encounter procedure 05/08/2024 12:45 PM EST Office Visit [facility] [address] [place] [id number] Ken Jones MD [address] [place] [address] [facility] Start: 03-02-2024 Adult BMI Screening Adult BMI Screen ing [facility] Start: 03-02-2024 Tobacco Screening Tobacco Screening [facility] Start: 02-13-2024 COVID-19 Vaccine ( season) COVID-19 Vaccine () [facility] Start: 02-13-2024 COVID-19 Vaccine ( season) COVID-19 Vaccine () [facility] Start: 02-13-2024 Influenza vaccination Influenza Vacc ine [facility] Start: 02-07-2024 [facility] Start: 02-07-2024 Bone marrow sampling [facility] Start: 06-01-2023 Adult BMI Follow Up Plan Adult BMI Follow Up Plan [facility] Start: 02-12-2023 COVID-19 Vaccine ( season) COVID-19 Vaccine () [facility] Start: 02-12-2023 Influenza vaccination Influenza Vacc ine [facility] Start: 08-18-2022 Depression Screening Depression Scre ening [facility] Start: 02-18-2022 Fall Risk Screening Fall Risk Screen ing [facility] Start: 02-18-2022 Medicare Annual Well ness Visit Medicare Annual Wellness Visit [facility] Start: 2010 Fall Risk Screening Fall Risk Screen ing [facility] End: 03-30-2025 Basic metabolic 2000 panel - Serum or Plasma Basic Metabolic Panel Lab Routine Coronary artery disease involving nome coronary artery of nome heart without angina pectoris 1 Occurrences starting 03/31/2024 until 03/30/2025 [facility] Work Phone: Comment on above: 1 Occurrences starti ng 03/31/2024 until 03/30/2025 End: 03-30-2025 Magnesium [Mass/volume] in Serum or Plasma Magnesium Lab Routine Coronary artery disease involving nome coronary artery of nome heart without angina pectoris 1 Occurrences starting 03/31/2024 until 03/30/2025 [facility] Comment on above: 1 Occurrences starti ng 03/31/2024 until 03/30/2025 Patient Education [facility] Bone Marrow Aspiration or Biopsy Know your Meds [facility] Work Phone: Immunizations Immunization Date Immunization Notes Care Provider Fa cility 03-04-2023 influenza virus vacc ine, unspecified formulation Denise Araiza RN [facility] 03-04-2022 influenza, injectabl e, quadrivalent, preservative free Shukri Jeong MD Work Phone: [facility] 03-04-2022 influenza virus vacc ine, unspecified formulation Shukri Jeong MD Work Phone: [facility] 04-04-2021 influenza, injectabl e, quadrivalent, contains preservative Shukri Jeong MD Work Phone: [facility] 03-13-2021 COVID-19, mRNA, LNP- S, PF, 30mcg/0.3mL Dose Shukri Jeong MD Work Phone: [facility] 08-13-2020 COVID-19, mRNA, LNP- S, PF, 30mcg/0.3mL Dose Shukri Jeong MD Work Phone: [facility] 07-22-2020 COVID-19, mRNA, LNP- S, PF, 30mcg/0.3mL Dose Shukri Jeong MD Work Phone: [facility] 02-06-2020 influenza, injectabl e, quadrivalent, preservative free Shukri Jeong MD Work Phone: [facility] 04-06-2019 zoster vaccine recombinant Shukri Jeong MD Work Phone: [facility] 03-09-2019 influenza, high dose seasonal, preservative-free Shukri Jeong MD Work Phone: [facility] 09-01-2018 zoster vaccine recombinant Shukri Jeong MD Work Phone: [facility] 02-17-2018 Seasonal trivalent influenza vaccine, adjuvanted, preservative free Shukri Jeong MD Work Phone: [facility] 08-26-2017 pneumococcal polysaccharide vaccine, 23 valent Shukri Jeong MD Work Phone: [facility] 02-10-2017 influenza virus vacc ine, unspecified formulation Shukri Jeong MD Work Phone: [facility] 02-20-2016 influenza, seasonal, injectable, preservative free Shukri Jeong MD Work Phone: [facility] 10-09-2015 pneumococcal conjuga te vaccine, 13 valent Shukri Jeong MD Work Phone: [facility] 03-08-2015 Influenza TIV (IM) Shukri soto MD Work Phone: [facility] 07-07-2013 pneumococcal polysaccharide vaccine, 23 diaz Jeong MD Work Phone: [facility] 06-14-2007 pneumococcal polysaccharide vaccine, 23 diaz Jeong MD Work Phone: [facility] 02-26-1999 pneumococcal polysaccharide vaccine, 23 diaz Jeong MD Work Phone: [facility] Payers Date Payer Category Payer Medicare (Managed Care) [id number]. [id number] 2024 Self-pay 2024 Private Health Insurance [id number] 2023 Medicare [id number] 2022 Unknown BCBS [facility] HMO/PPO/TRUST [id number] 2022-Rust [phone] [place] [address] [id number] 2014 Medicare [id number] 2010 Medicare [id number] 1959 Medicare [id number] 1959 Medicare [id number] 1959 Unknown [id number] 1945 Unknown [id number] 2.16.840.1.585509.3.579.2. 593 1945 Unknown [id number] 2.16.840.1.398337.3.579.2. 593 1945 Unknown [id number] 2.16.840.1.808454.3.579.2. 593 1945 Unknown [id number] 2.16.840.1.415583.3.579.2. 593 1945 Unknown [id number] 2.16.840.1.810492.3.579.2. 593 1945 Unknown [id number] 2.16.840.1.320552.3.579.2. 593 1945 Unknown [id number] 2.16.840.1.623280.3.579.2. 593 1945 Unknown [id number] 2.16.840.1.803861.3.579.2. 593 1945 Unknown [id number] 2.16.840.1.378436.3.579.2. 593 1945 Unknown [id number] 2.16.840.1.166013.3.579.2. 593 1945 Unknown [id number] 2.16.840.1.085913.3.579.2. 593 1945 Unknown [id number] 2.16.840.1.256573.3.579.2. 593 1945 Unknown [id number] 2.16.840.1.537281.3.579.2. 1259 1945 Unknown [id number] 2.16.840.1.497365.3.579.2. 1259 1945 Unknown [id number] 2.16.840.1.332236.3.579.2. 1286 1945 Unknown [id number] 2.16.840.1.417175.3.579.2. 1286 1945 Unknown [id number] 2.16.840.1.241479.3.579.2. 1286 Unknown [id number] 2.16.840.1.277163.3.579.2. 531 Social History Date Type Detail Facility Start: 02-22-2023 End: 02-07-2024 Tobacco smoking status NHIS Never smoked tobacco (finding) [facility] Start: 1945 Sex Assigned At Female [facility] Start: 02-22-2023 End: 07-06-2024 History of Social function [facility] Start: 02-22-2023 End: 07-06-2024 Tobacco use panel [facility] Start: 1945 Sex assigned at Not on file [facility] Start: 06-01-2022 Tobacco use and exposure Smoke less tobacco non-user [facility] Start: 03-02-2023 End: 05-08-2024 Alcohol intake Current drinker of alcohol (finding) [facility] Frequency of Communi cation with Friends and Family Three times a week [facility] Start: 03-09-2019 Education 14 [facility] Start: 01-15-2015 Sex Female (finding) [facility] Clinical Notes 06-23-2022 to 09-14-2024 Baltazar [...] Resource Strain: Low Risk (03/09/2019) Received from [facility] Overall Financial Resource Strain (CARDIA) Difficulty of Paying Living Expenses: Not hard at all Food Insecurity: No Food Insecurity (05/08/2024) Received from [facility] Hunger Screening Within the past 12 months we worried whether our food would run out before we got money to buy more.: Never True Within the past 12 months the food we bought just didn't last and we didn't have money to get more.: Never True Transportation Needs: No Transportation Needs (03/09/2019) Received from [facility] PRAPARE - Transportation Lack of Transportation (Medical): No Lack of Transportation (Non-Medical): No Physical Activity: Sufficiently Active (03/09/2019) Received from [facility] Exercise Vital Sign Days of Exercise per Week: 7 days Minutes of Exercise per Session: 50 min Stress: Stress Concern Present (03/09/2019) Received from [facility] [place] [employer] - Occupational Stress Questionnaire Feeling of Stress : To some extent Social Connections: Socially Integrated (03/09/2019) Received from [facility] Social Connection and Isolation Panel [NHANES] Frequency of Communication with Friends and Family: Three times a week Frequency of Social Gatherings with Friends and Family: Three times a week Attends Anglican Services: More than 4 times per year [...] Medical History: Diagnosis Date Breast cancer ([facility]) Medications: No current outpatient medications on [...] Resource Strain: Low Risk (03/09/2019) Received from [facility] Overall Financial Resource Strain (CARDIA) Difficulty of Paying Living Expenses: Not hard at all Food Insecurity: No Food Insecurity (05/08/2024) Received from [facility] Hunger Screening Within the past 12 months we worried whether our food would run out before we got money to buy more.: Never True Within the past 12 months the food we bought just didn't last and we didn't have money to get more.: Never True Transportation Needs: No Transportation Needs (03/09/2019) Received from [facility] PRAPARE - Transportation Lack of Transportation (Medical): No Lack of Transportation (Non-Medical): No Physical Activity: Sufficiently Active (03/09/2019) Received from [facility] Exercise Vital Sign Days of Exercise per Week: 7 days Minutes of Exercise per Session: 50 min Stress: Stress Concern Present (03/09/2019) Received from [facility] [place] [employer] - Occupational Stress Questionnaire Feeling of Stress : To some extent Social Connections: Socially Integrated (03/09/2019) Received from [facility] Social Connection and Isolation Panel [NHANES] Frequency of Communication with Friends and Family: Three times a week Frequency of Social Gatherings with Friends and Family: Three times a week Attends Anglican Services: More than 4 times per year [...] sciatica Dyslipidemia Malignant neoplasm of female breast ([facility]) Temporomandibular joint disorder Pseudophakia Medicare annual wellness visit, subsequent Pain in both knees Severe obesity (BMI 35.0-39.9) with comorbidity ([facility]) Gastroesophageal reflux disease with esophagitis Thoracic outlet syndrome Depressive disorder Tension headache Sprain of right rotator cuff capsule Spinal stenosis of lumbar region Facet arthritis of lumbar region Scoliosis of lumbar spine Abnormal echocardiogram Pulmonary hypertension ([facility]) Allergies Allergen Reactions Hay Fever And Allergy [...] 0.5 tablets before bedtime. 90 tablet 0 kfoayddd-dvcj-NA-calcium &mins (THERAGRAN-M) 9 mg iron-400 mcg tablet [...] Medical History: Diagnosis Date Breast cancer ([facility]) 2013 RT GERD (gastroesophageal reflux disease) Hyperlipidemia Hypertension Menopausal syndrome (hot flashes) No data recorded No data recorded No data recorded Past Surgical History: Procedure Laterality Date APPENDECTOMY BELPHAROPTOSIS REPAIR Bilateral BLEPHAROPLASTY W/ LASER BREAST BIOPSY BREAST LUMPECTOMY Right 2013 RADIATION AND CHEMO Cardiac catheterization- Cors + Right heart + LV gram/press [id number] N/A 02/08/2023 Performed by Abdiel Lemus MD at [facility] CARDIAC CATH LABS CATARACT EXTRACTION Bilateral [...] 50 min Stress: Stress Concern Present (03/09/2019) [place] [employer] - Occupational Stress Questionnaire Feeling of Stress : To some extent Social Connections: Socially Integrated (03/09/2019) Social Connection and Isolation Panel [NHANES] Frequency of Communication with Friends and Family: Three times a week Frequency of Social Gatherings with Friends and Family: Three times a week Attends Anglican Services: More than 4 times per year [...] medications. IMPRESSIONS/PLAN 1. 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 Pulmonary hypertension (CMS-HCC) 3. Benign essential hypertension 4. Dyslipidemia 5. 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 PCP: HEATHER ZIMMERMAN Referring Physician: KANIKA BillTUG HAND [address] [place] [address] [facility] encounter [facility] 05-05-2024 Miscellaneous Notes Called patient to remind them to bring their most current copy of their medication list with them to their appt. Patient verbalizes understanding. [facility]-05-2024 Telephone encounter Note Called patient to remind them to bring their most current copy of their medication list with them to their appt. Patient verbalizes understanding. [facility] Telephone encounter Note Patient [...] Pt wants us to call her at [phone] when her aids are back from repair [...] Pt wants us to call her at [phone] when her aids are back from repair [...] Pt will call to make appt Last [facility] 12/18/22 Orders placed for BMP and Mg.slm documented in this encounter [facility] 03-30-2024 Telephone encounter Note Last OV 03/02/23 Pt will call to make appt Last [facility] 12/18/22 Orders placed for BMP and Mg.slm [facility] 09-24-2022 Note CONSULTATION CONSULTATION DATE: 09/24/2022 TO: [...] this infrequently. She is no longer on Otis, since at least July. Her GERALDO on [...] our patients to inform us about any rxaz-oww-cswehrl medications or herbal remedies/nutritional supplements/alternative remedies. 2. [...] options with their primary care provider. [facility] 08-20-2022 Note CONSULTATION CONSULTATION DATE: 08/20/2022 [...] Medications include Celebrex 200 mg daily, multivitamin, Otis 5/325 daily p.r.n., Excedrin and baclofen 10 [...] L4, L5. She is to continue her Otis 5/325 daily p.r.n. and I highly encouraged her to use a heat rub and heat application once to twice daily. Patient agrees with this plan of care and will be brought back to the clinic thereafter. [facility] 07-23-2022 Note PAIN MANAGEMENT CONS ULTATION [...] greatly aggravate her pain. Current medications include Otis 5/325 daily p.r.n., baclofen 10 mg q.h.s. [...] followed up in the office thereafter. [facility] 06-23-2022 Note CONSULTATION CONSULTATION DATE: 06/23/2022 [...] the possibility of a neurosurgical consult at [facility]. The patient's PAST MEDICAL HISTORY / [...] PLAN: We will start the patient on Otis 5/325 one tablet p.o. daily. The patient [...] and would like to proceed. 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- Primary Pulmonary hypertension (CMS-HCC) Other chronic pulmonary heart diseases Benign essential hypertension Essential hypertension, benign Dyslipidemia Other and unspecified hyperlipidemia Dyspnea on exertion Other dyspnea and respiratory abnormality documented in this encounter [facility]* Diagnosis Metatarsal deformity, left- Primary Pain due to onychomycosis of toenails of both feet Metatarsal deformity, right documented in this encounter [facility] HealthcareInstructionsNot on filedocumented in this encounterProMedisc Health SystemInstructionsNot on filedocumented in this encounterProT[facility] SystemInstructionsNot on filedocumented in this encounterPro[facility] Summary Purpose Family History No [...] Documents on File Type Date Recorded Patient [employer] Expl anation Living Will 10/11/2015 2:28 PM Chief Complaint and Reason for Visit Chief Complaint refractory anemia ev al for mds Additional Source Comments INFORMATION SOURCE (unrecogn ized section and content) DATE CREATED AUTHOR 12/02/2017 [facility] DATE CREATED AUTHOR AUTHOR'S ORGANIZ ATION 11/20/2022 [facility] DATE CREATED AUTHOR AUTHOR'S ORGANIZ ATION 02/12/2024 [facility] DATE CREATED AUTHOR AUTHOR'S ORGANIZ ATION 09/17/2024 [facility] EPIC DATE CREATED AUTHOR AUTHOR'S ORGANIZ ATION 11/08/2024 [facility] Care Teams (unrecognized sec tion and content) Team Status: Active Member Role Status Dates Chanell Chen APRN Primary Care Provider Active Team Status: Inactive Member Role Status Dates Claribel Pickett MD Attending Provider Active St art: February 07, 2024 End: February 07, 2024 Chanell Chen APRN Primary Care Provider Active Start: February 07, 2024 End: February 07, 2024 Java J[employer] Developer Relationship Specialty Start Date End Date Adi Figueroa APRN-CNP [address] [place] [id number] PCP - General Primary Care 06/01/22 Java Jsf Developer Relationship Specialty Start Date End Date Adi Figueroa APRN-CNP [address] [place] [id number] PCP - General Primary Care 06/01/22 Java Jsf Developer Relationship Specialty Start Date End Date Gustavo, Chanell, TUYERE FITTER-HAND STONE POLISHER [address] [facility] [place] [address] PCP - General Family Medicine 05/08/24 Java Jsf Developer Relationship Specialty Start Date End Date Adi FigueroaCAROLINE-TUG HAND [address] [place], [place] [id number] PCP - General Primary Care 06/01/22 Java Jsf Developer Relationship Specialty Start Date End Date Unallocated, Christel Edmond MD [address] [place] [id number] PCP - General Family Medicine 09/14/24 Java Jsf Developer Relationship Specialty Start Date End Date Unallocated, Christel Edmond MD [address] [place] [id number] PCP - General Family Medicine 09/14/24 Goals [...] BE BASED ON THE PRIMARY CLINICAL RECORDS. [facility] [employer] [facility]. provides no warranty or guarantee of the accuracy or completeness of information in this document.
[2025-03-26 07:00] LABS: Hematocrit 30.1 % (36.0-48.0); Hemoglobin 9.9 g/dL (12.0-16.0); Mean Corpuscular HGB Conc 32.9 g/dL (29.9-35.2); Mean Corpuscular Hemoglobin 33.8 pg (26.7-34.0); Mean Corpuscular Volume 102.7 fL (81.0-99.0); Platelet Count 226 10^3/uL (150-450); Red Blood Count 2.93 10^6/uL (4.20-5.40); White Blood Count 5.4 10^3/uL (4.0-11.0)
[2025-03-26 07:01] LABS: Glucose Urine UA NEGATIVE (NEGATIVE)
[2025-03-26 07:08] LABS: Cast Seen? NONE SEEN #/LPF (NONE SEEN); Crystals Seen? None Seen #/HPF (None Seen); Urine Culture Indicated NO
[2025-03-26 09:20] LABS: Albumin Level 3.7 g/dL (3.4-5.0); Anion Gap 14.9; Blood Urea Nitrogen 22.0 mg/dL (7.0-18.0); Calcium 9.2 mg/dL (8.5-10.1); Carbon Dioxide 26.5 mmol/L (21.0-32.0); Chloride 105 mmol/L (98-107); Estimated GFR (African America >60 (>=60 mL/min/1.73m^2); Estimated GFR (Non-African Ame 54 (>=60 mL/min/1.73m^2); Glucose 108 mg/dL (74-106); Magnesium 1.7 mg/dL (1.8-2.4); Potassium 4.4 mmol/L (3.5-5.1); Sodium 142 mmol/L (136-145); Uric Acid 9.6 mg/dL (2.6-6.0)
== END 2025-03-26 06:38 | disposition home or self-care (01) ==
LOC: LAB 06:39
PROVIDERS: Visit Provider Internal Medicine
DX: N18.31 Chronic kidney disease, stage 3a (principal)
CPT/HCPCS: 36415; 80048; 81001; 82042; 82306; 83735; 83970; 84100; 84550; 85027

== ENCOUNTER 2025-05-22 08:34 | Emergency (ER) | payer MEDICARE, SELFPAY ==
[2025-05-22 09:03] VITALS: BP 155/89; PULSE 82; TEMP 36.9; O2SAT 96; BMI 35.7
[2025-05-22] MEDS: KETOROLAC TROMETHAMINE 30 MG/ML VIAL 15 MG IM (10:14)
--- OUTSIDE RECORDS SUMMARY | 2025-05-22 10:17 | XMS_ITS | CCD ---
Author Organization [facility] CliniSyoh Care Team Providers Care Power Shear Operator Name Role Phone KENZIE ALMONTE Unavailable [...] Admitting Unavailable SHAMMO, ADI Primary Care Unavailable ZIEBVENKATA, DR JAMIR Amaya Consulting Unavailable TERRENCE ALBRETO Consulting Unavailable SHAMMO, ADI Consulting Unavailable SHAMMO, ADI Consulting Unavailable SHAMMO, ADI Attending Unavailable SHAMMO, ADI Admitting Unavailable SHAMMO, ADI Primary Care Unavailable WILDER ., DR BEAU Galvan Admitting Unavailable WILDER ., DR BEAU Galvan Consulting Unavailable WILDER ., DR BEAU Galvan Attending Unavailable SHAMMO, ADI Primary Care Unavailable SHAMMO, ADI Primary Care Unavailable SHAMMO, ADI Attending Unavailable SHAMMO, DAI Admitting Unavailable ZIEBER, DR JAMIR Amaya Consulting Unavailable SHAMMO, ADI Consulting Unavailable MISC, DR CABRERA Attending Unavailable BOWERSVILLE, DR JOSE RAFAEL Mendes Consulting Unavailable MISC, DR CABRERA Admitting Unavailable MISC, DR DOCTOR Consulting Unavailable WILDER ., DR BEAU Galvan Attending Unavailable TINA ., DR BEAU Galvan Admitting Unavailable SHAMMO, [...] Consulting Unavailable MD Claribel Pickett Attending Provider [phone] Adam, DIRECTOR OF ACQUISITIONS Towanda Primary Care Provider [phone] Claribel Pickett Attending Unavailable Claribel Pickett Admitting Unavailable Adam, Towanda Primary Care Unavailable Unavailable Primary Care Provider Unavailabl e Shammo DIRECTOR OF ACQUISITIONS-ELEVATOR CONSTRUCTOR ELECTRIC, Almond Primary Care Provider Adam DIRECTOR OF ACQUISITIONS-PHOTO PRINTER, Towanda Primary Care Provider [phone] Unallocated Christel BOBBY Provider Primary Care Provi ct BALTAZAR WEIR Attending Unavailable BALTAZAR WEIR Attending Unavailable BOONE JHA Referring Unavailable SHAMMO, ADI Primary Care Unavailable KEN JONES Attending Unavailable SHAMMO, ADI Referring Unavailable ADAM, INEZ Primary Care Unavailable TABITHA CANO Referring Unavailable ADAM, INEZ Primary Care Unavailable Adamaris Lester DO Attending Provider [phone] Karin ANESTHESIA ATTENDING-C, Guillermina Garcia Primary Care Provider [phone] Allergies Allergy ClassificationReported Allergen(s)Allergy TypeDate of OnsetReaction(s) Facility (5 sources)Hay Fever And Allergy Relief; Translations: [HAY FEVER AND ALLERGY RELIEF]Propensity to adverse reactions to xbjb75-77-4668[facility] (5 sources)Other; Translations: [OTHER]Propensity to adverse xruchitso06-45-0690 [facility] Medications Current Medications MedicationDrug Class(es)DatesSig (Normalized)Sig (Original)empagliflozin 10 mg oral tablet (1 source)Sodium-Glucose Cotransporter 2 InhibitorStart: 37-05-2057owvv 1 tablet by mouth once dailyEmpagliflozin (Jardiance) 10 mg tablet Active 10 MG PO Daily April 17, 2025 12:00am Complies with drug therapyhydroCHLOROthiazide 12.5 mg / lisinopril 10 mg oral tablet (9 sources)Thiazide Diuretic, Angiotensin Converting Enzyme InhibitorStart: 26-98-1488cxkd 10-12.5 mg by mouth once at bedtimelisinopril-hydroCHLOROthiazide (PRINZIDE,ZESTORETIC) 10-12.5 mg per tablet Indications: Coronary artery disease involving [place] coronary artery of [place] heart without angina pectoris , Pulmonary hypertension ([facility]) , Benign essential hypertension , Dyslipidemia , Dyspnea on exertion Take 1 tablet by mouth in the morning and at bedtime. 180 tablet 3 05/08/2024 ActiveStart: 02-07-2024 End: 00-42-4484bfep 1 tablet by mouth once dailyLisinopril-Hydrochlorothiazide 10-12.5 mg tablet Discontinued 1 TAB PO Daily February 06, 2024 11:00pm April 17, 2025 8:48amStart: 03-05-2023 End: 08-26-9251eyrc 0.5 tablet by mouth once in the morninglisinopril- hydroCHLOROthiazide (PRINZIDE,ZESTORETIC) 20-25 mg per tablet Take 0.5 tablets by mouth in the morning and 0.5 tablets before bedtime. 90 tablet 03/31/2024 05/08/2024 DiscontinuedStart: 50-98-0819cadn 10-12.5 mg by mouth once at bedtime lisinopril-hydroCHLOROthiazide (PRINZIDE,ZESTORETIC) 10-12.5 mg per tablet Take 1 tablet by mouth in the morning and at bedtime. 180 tablet 3 12/11/2022 Active fcofyxut-xzgu-SW-calcium &mins (THERAGRAN-M) 9 mg iron-400 mcg tablet (4 sources)xcghlple-sjae-HE-calcium &mins (THERAGRAN-M) 9 mg iron-400 mcg tablet Indications: mineral deficiency , vitamin deficiency Take 1 tablet by mouth in the morning. Indications: lack in minerals, vitamin deficiency. Active oelstkgw-hium-FC-calcium &mins (THERAGRAN-M) 9 mg iron-400 mcg tablet Indications: mineral deficiency , vitamin deficiency Take 1 tablet by mouth in the morning. Indications: lack in minerals, vitamin deficiency. 0 Active Multivitamin (Daily Multi-Vitamin) tablet (2 sources)Start: 50-51-6396vyyi 1 tablet by mouth once dailyMultivitamin (Daily Multi-Vitamin) tablet Active 1 TAB PO Daily February 06, 2024 11:00pm Complies with drug therapyStart: 75-66-6147igan 1 tablet by mouth once dailyMultivitamin (Daily Multi-Vitamin) tablet Active 1 TAB PO Daily February 07, 2024 12:00am pravastatin sodium 20 mg oral tablet (6 sources)HMG-CoA Reductase InhibitorStart: 87-44-3754vple 1 tablet by mouth once dailyPravastatin 20 mg tablet Active 20 MG PO Daily February 06, 2024 11:00pm Complies with drug therapyspironolactone 25 mg oral tablet (1 source)Aldosterone AntagonistStart: 28-75-0118ewcz 1 tablet by mouth in the morningspironolactone (ALDACTONE) 25 mg tablet Indications: Coronary artery disease involving [place] coronary artery of [place] heart without angina pectoris , Pulmonary hypertension (CMS-HCC) , Benign essential hypertension , Dyslipidemia , Dyspnea on exertion Take 1 tablet (25 mg total) by mouth in the morning. 90 tablet 3 05/08/2024 Activetorsemide 10 mg oral tablet (1 source)Loop DiureticStart: 34-44-8954kfzb 1 tablet by mouth once daily Torsemide 10 mg tablet Active 10 MG PO Daily April 17, 2025 12:00am Complies with drug therapytraMADol hydrochloride 50 mg oral tablet (4 sources)Opioid Agonisttake 1 tablet by mouth every six hours as needed for paintraMADoL (ULTRAM) 50 mg tablet Take 1 tablet (50 mg total) by mouth every 6 (six) hours as needed for pain. Activevitamin e 90 mg oral capsule (4 sources)take 2 capsules by mouth in the morningvitamin E 200 units capsule Indications: vitamin E deficiency Take 2 capsules (400 Units total) by mouth in the morning. Indications: deficiency of vitamin E. Active Completed/Discontinued Medications MedicationDrug Class(es)DatesSig (Normalized)Sig (Original)ALPRAZolam 0.25 mg oral tablet (6 sources)BenzodiazepineStart: 11-14-2020 End: 49-19-0235izmz 1 tablet by mouth once dailyAlprazolam 0.25 mg tablet Discontinued 0.25 MG PO Daily February 06, 2024 11:00pm April 17, 2025 8:42amARIPiprazole 2 mg oral tablet (6 sources)Atypical AntipsychoticStart: 02-07-2024 End: 55-71-7565tyml 1 tablet by mouth once dailyAripiprazole (Abilify) 2 mg tablet Discontinued 2 MG PO Daily February 06, 2024 11:00pm April 17, 2025 8:42amcitalopram 20 mg oral tablet (2 sources)Serotonin Reuptake InhibitorStart: 02-07-2024 End: 07-42-8826fjkf 1 tablet by mouth once dailyCitalopram (Celexa) 20 mg tablet Discontinued 20 MG PO Daily February 06, 2024 11:00pm April 17, 2025 8:48am lansoprazole 15 mg delayed release oral capsule (6 sources)Proton Pump InhibitorStart: 02-07-2024 End: 05-12-2697najc 1 capsule by mouth once dailyLansoprazole 15 mg capsule,delayed release(DR/EC) Discontinued 15 MG PO Daily February 06, 2024 11:00pm April 17, 2025 8:48amtake 1 tablet by mouth in the morning lansoprazole (PREVACID SOLUTAB) 15 mg disintegrating tablet Indications: heartburn Take 1 tablet (15 mg total) by mouth in the morning. Indications: heartburn. Activelevocetirizine dihydrochloride 5 mg oral tablet (6 sources)Histamine-1 Receptor AntagonistStart: 02-07-2024 End: 28-16-8485rkeh 1 tablet by mouth once daily at bedtimeLevocetirizine 5 mg tablet Discontinued 5 MG PO Daily at bedtime February 06, 2024 11:00pm April 17, 2025 8:48am Problems Active Problems Problem ClassificationProblemDateDocumented DateEpisodic/ChronicCancer of breast (4 sources)Malignant neoplasm of female breast; Translations: [Malignant neoplasm of unspecified site of unspecified female breast]Onset: 01-21-2016 65-27-6085OqmufvsTzpjdker (4 sources)Artificial lens present; Translations: [Presence of intraocular lens] Onset: 293828-98-5039JamnfafHevgfpu kidney disease (1 source)Chronic kidney disease; Translations: [Chronic kidney disease, stage 3a]Onset: 32-10-1880Ecgynivfqu associated with dizziness or vertigo (1 source)Dizziness and giddiness; Translations: [DIZZINESS AND GIDDINESS]Onset: 81-36-2151ZstebxmmLrploqnm atherosclerosis and other heart disease (3 sources)Coronary arteriosclerosis; Translations: [Atherosclerotic heart disease of [place] coronary artery without angina pectoris]Onset: 05-08-2024 91-00-2517ZhwrlxpLlpjdgbxyh and other anemia (1 source)Anemia; Translations: [Anemia, unspecified]03-94-6878GmofesxuRwemhcnmz of lipid metabolism (6 sources)Dyslipidemia; Translations: [Hyperlipidemia, unspecified]Onset: 622885-33-8401KabihnkBmrdthrtdt disorders (4 sources)Gastro-esophageal reflux disease with esophagitis; Translations: [Gastroesophageal reflux disease with esophagitis]Onset: ChronicEssential hypertension (7 sources)Essential (primary) hypertension; Translations: [Benign essential hypertension]Onset: 315068-11-8463TazzvqyNtgvvlur; including migraine (4 sources)Tension-type headache; Translations: [Tension-type headache, unspecified, not intractable]Onset: 980737-34-4857BpykvsqSlqpsxv and fatigue (1 source)Chronic fatigue, unspecified; Translations: [CHRONIC FATIGUE UNSPECIFIED]Onset: 97-65-1366GoyilrrNeux disorders (4 sources)Depressive disorder; Translations: [Depressive disorder]Onset: 032585-41-5716IrlnslmKvkwmix (3 sources)Pain in toe; Translations: [Tinea unguium]23-59-3155UgdhciwiCwixk acquired deformities (1 source)Other forms of scoliosis, lumbar region; Translations: [OTHER FORMS SCOLIOSIS LUMBAR REGION]Onset: 53-89-0955PiosdniEpgkp acquired deformities (4 sources)Scoliosis of lumbar spine; Translations: [Scoliosis, unspecified] Onset: 392196-99-9218NldkttxNoodg acquired deformities (3 sources)Deformity of metatarsal; Translations: [Unspecified acquired deformity of left lower leg]06-33-3782WtrpgtpnSbqhx acquired deformities (3 sources)Deformity of metatarsal; Translations: [Unspecified acquired deformity of right lower leg]90-48-4397PyetsxqbBbfip connective tissue disease (1 source)Other muscle spasm; Translations: [OTHER MUSCLE SPASM]Onset: 24-00-5500RlpkrvjnKfalq lower respiratory disease (1 source)Orthopnea; Translations: [ORTHOPNEA]Onset: 44-03-9437OsmtuecoZidaf lower respiratory disease (1 source)Dyspnea on exertion; Translations: [Other forms of dyspnea]05-08-2024 EpisodicOther nervous system disorders (1 source)Other chronic pain; Translations: [OTHER CHRONIC PAIN]Onset: 26-72-3177HlywtkpMjfja nervous system disorders (4 sources)Thoracic outlet syndrome; Translations: [Brachial plexus disorders] Onset: 865443-87-2272QgmevreFobtz nutritional; endocrine; and metabolic disorders (4 sources)Severe obesity; Translations: [Morbid (severe) obesity due to excess calories]Onset: 110237-65-8079VvrjybkAqsdqxxxx heart disease (6 sources)Pulmonary hypertension; Translations: [Pulmonary hypertension, unspecified]Onset: 495711-94-5979NxowvvfIyqprbzptwb; intervertebral disc disorders; other back problems (10 sources)Spondylosis without myelopathy or radiculopathy, lumbar region; Translations: [Other intervertebraldisc degeneration, lumbar region]Onset: 78-86-3470ZnaqqzkYtpyces and intentional self-inflicted injury (1 source)Suicidal ideations; Translations: [Suicidal ideations]Onset: 84-81-4106BcgehhnyVmhhiqsldqfz (4 sources)LOW BACK PAIN, UNSPECIFIED; Translations: [LOW BACK PAIN, UNSPECIFIED]Onset: 09-08-2022 Past or Other Problems Problem ClassificationProblemDateDocumented DateEpisodic/ChronicCancer of breast (1 source)Personal history of malignant neoplasm of breast; Translations: [Personal history of malignant neoplasm of breast]Onset: 69-06-6653Xowjdddq Disorders of teeth and jaw (4 sources)Temporomandibular joint disorder; Translations: [Unspecified temporomandibular joint disorder, unspecified side]Onset: EpisodicMenopausal disorders (4 sources)Menopausal syndrome; Translations: [Menopausal and female climacteric states]Onset: 02-06-2016 Resolved: 784422-77-5681NlzlmutEopj disorders (4 sources)Mood disordersOnset: 2Other connective tissue disease (1 source)Sarcopenia; Translations: [SARCOPENIA]Onset: 05-01-2487PfydsnclWboug eye disorders (4 sources)Dry eyes; Translations: [Dry eye syndrome of bilateral lacrimal glands]Onset: 05-26-2016 Resolved: 703746-39-7111GvonbnmqHyrfb lower respiratory disease (5 sources)Other forms of dyspnea; Translations: [OTHER FORMS OF DYSPNEA]Onset: 54-69-6033PnzymrmuTvfrs non-traumatic joint disorders (5 sources)Pain in right knee; Translations: [Pain in joint, lower leg]Onset: 113428-95-7571HdjicixoDpgqt screening for suspected conditions (not mental disorders or infectious disease) (10 sources)Encounter for screening for cardiovascular disorders; Translations: [Encounter for screening for lipoid disorders]Onset: 03-28-4450EvuzgcqlXyofnycj codes; unclassified (1 source)Family history of malignant neoplasm of breast; Translations: [FAMILY HX MALIG NEOPLASM OF BREAST]Onset: 42-55-8791LrhmvlkbFprwolkf codes; unclassified (1 source)Family history of malignant neoplasm, unspecified; Translations: [FAM HX MALIGNANT NEOPLASM UNS]Onset: 49-91-7721ZsizbnlbYqmfskorzfp; intervertebral disc disorders; other back problems (12 sources)Sciatica, right side; Translations: [Chronic low back pain]Onset: 93-89-8250NmbusfavQjaqtje and strains (4 sources)Sprain of shoulder rotator cuff; Translations: [Sprain of right rotator cuff capsule, initial encounter]Onset: 660071-42-4637Grpnthir Unclassified (1 source)LOW BACK PAIN, UNSPECIFIED; Translations: [LOW BACK PAIN, UNSPECIFIED] Onset: 41-58-3610Dcjnlmntekut (4 sources)Onset: Results Test NameValueInterpretationReference RangeFacilityUS RETROPERITONEAL COMPLETEon 10-20-6114YL RETROPERITONEAL COMPLETEUS RETROPERITONEAL COMPLETE RENAL ULTRASOUND HISTORY: Chronic kidney disease stage III COMPARISON: None FINDINGS: The right kidney measures 9.1 cm and left kidney 9.6 cm in length. Cortical thickness and corticomedullary differentiation are preserved. No renal stones, masses, or collecting system dilatation. The bladder is unremarkable. Bilateral ureteral jets are seen. IMPRESSION: Unremarkable renal ultrasound. Finalized by Pepito Fermin MD on 11/05/2024 8:50 AMNormalProAcmc Healthcare System Glen[facility]ighca [facility] EKGOrdered By: Marsha Layne on 77-71-9069WomVlauvgAdams County HospitalActivated partial thromboplastin time (aPTT) in platelet poor plasma by coagulation aOrdered By: Claribel Pickett on 35-04-0653lVJR Coag (PPP) [Time]36.0 s25.1-36.5FJ.W. Ruby Memorial HospitalComment on above:A hematocrit value greater than 55% may lead to inaccurate results in coagulation testing. Patients having hematocrit values >55% require a special collection tube for coagulation studies. Please contact the laboratory at [phone] for redraw instructions. Automated basophil %Ordered By: Claribel Pickett on 76-67-5742Tqvxhugsk/100 WBC (Bld)0.6 %Normal.[facility] HospitalComment on above:Order Comment: STAT FOR CT BXPerformed By: #### CBC, PP #### [facility] [address] [place] [address] USAAutomated basophil countOrdered By: Claribel Pickett on 80-31-2047Uybopwsli (Bld) [#/Vol]0.0 10*3/uLNormal0.0-0.2FJ.W. Ruby Memorial HospitalComment on above:Order Comment: STAT FOR CT BXResult Comment: PERFORMED BY: [place] [address] PATHOLOGIST LARD RENDERER KATRINA PATTERSON M.D.Performed By: #### CBC, PP #### [facility] [address] [place] [address] USAAutomated blood monocyte countOrdered By: Claribel Pickett on 98-28-3396Nmnjrdtim (Bld) [#/Vol]0.6 10*3/uLNormal0.0-0.8[facility] HospitalComment on above:Order Comment: STAT FOR CT BXPerformed By: #### CBC, PP #### [facility] [address] [place] [address] USAAutomated eosinophil %Ordered By: Claribel Nieves on 63-00-2773Utsevtmldfj/100 WBC (Bld)2.5 %Normal.[facility] Comment on above:Order Comment: STAT FOR CT BXPerformed By: #### CBC, PP #### [place] [address] USAAutomated eosinophil countOrdered By: Claribel Nieves on 10-54-6022Jbuukhmpjoa (Bld) [#/Vol]0.2 10*3/uLNormal0.0-0.45[facility] HospitalComment on above:Order Comment: STAT FOR CT BXPerformed By: #### CBC, PP #### [facility] [address] [place] [address] USAAutomated monocyte %Ordered By: Claribel Nieves on 63-59-8888Jemivonkd/100 WBC (Bld)7.6 %Normal.[facility] Comment on above:Order Comment: STAT FOR CT BXPerformed By: #### CBC, PP #### [facility] [address] [place] [address] USAAutomated neutrophil %Ordered By: Claribel Nieves on 04-10-4307Nibjdpkshmt/100 WBC (Bld)72.6 %Normal.[facility] HospitalComment on above:Order Comment: STAT FOR CT BXPerformed By: #### CBC, PP #### [facility] [address] [place] [address] USACT guided bone marrow bx/aspiron 18-87-6130BK guided bone marrow bx/aspirMERCY [facility] [place] [address] [place] [address] CT Scan Report Signed Patient: Elli Lindsey MR#: [id number] : 1945 Acct:[id number] Age/Sex: 78 / F ADM Date: 02/07/24 Loc: CT Room: Type: [facility] Attending Dr: Claribel Pickett MD Copies [...] local anesthesia. Utilizing CT guidance, an 11-gauge LSEO biopsy needle was advanced into the right [...] Adams Jr., D.O.02/07/2024 2:08 PM Dictation Location: [place] [address] Transcribed By: [facility] 02/07/24 1408 Dictated By: Sebastian Adams Jr, DO 02/07/24 1407 Signed By: 02/07/24 1408NormHCA [facility] Physician GroupCoagulation Profileon 02-07-2024 aPTT Coag (Bld) [Time]36.0 yHpvjby56.1-36.5The [facility] Physician GroupComment on above:Order Comment: STAT FOR CT BXResult Comment: A hematocrit value greater than 55% may lead to inaccurate results in coagulation testing. Patients having hematocrit values >55% require a special collection tube for coagulation studies. Please contact the laboratory at [phone] for redraw instructions. PERFORMED BY: [place] [address] PATHOLOGIST LARD RENDERER KATRINA PATTERSON M.D.Performed By: #### CBC, PP #### [place] [address] USAComplete Blood Count Auto Diffon 42-24-3995Gtvo Corpuscular HGB Conc34.1 g/pTGozruv22.0-35.0The [facility] Physician GroupComment on above:Order Comment: STAT FOR CT BXPerformed By: #### CBC, PP #### [place] [address] USANRBC%0.0 /100{WBC}Normal0-0.5[facility] Comment on above:Order Comment: STAT FOR CT BXPerformed By: #### CBC, PP #### [place] [address] USAErythrocyte distribution width [Ratio] by Automated count Ordered By: Claribel Pickett on 44-43-5490Brklblvokvv distribution width (RBC) [Ratio]13.8 %Grgnlj31.9-15.3FJ.W. Ruby Memorial HospitalComment on above: Order Comment: STAT FOR CT BXPerformed By: #### CBC, PP #### [place] [address] USAErythrocytes [#/volume] in Blood by Automated countOrdered By: Claribel Pickett on 27-00-1354YWJ (Bld) [#/Vol]3.45 10*6/uLLow3.60-5.00 [facility] HospitalComment on above:Order Comment: STAT FOR CT BX Performed By: #### CBC, PP #### [place] [address] USAHematocrit [Volume Fraction] of Blood by Automated count Ordered By: Claribel Pickett on 51-46-3324Zychpfeukr (Bld) [Volume fraction]33.8 % Low34.0-46.4FJ.W. Ruby Memorial HospitalComment on above:Order Comment: STAT FOR CT BXPerformed By: #### CBC, PP #### [facility] [address] [place] [address] USAHemoglobin [Mass/volume] in BloodOrdered By: Claribel Pickett on 97-81-5936Zifnndwdlk (Bld) [Mass/Vol]11.5 g/dLLow11.8-15.4FJ.W. Ruby Memorial HospitalComment on above:Order Comment: STAT FOR CT BXPerformed By: #### CBC, PP #### [facility] [address] [place] [id number] USAINR in Platelet poor plasma by Coagulation assayOrdered By: Claribel Pickett on 45-98-6492CRQ Coag (PPP) [Relative time]1.0 {INR}Normal [facility] HospitalComment on above:INR Therapeutic Range A) Pre- and Peroperative OAT started two weeks before surgery. NOT HIP SURGERY: 1.5 - 2.5 HIP SURGERY: 2 - 3B) Primary and secondary prevention of venous THROMBOSIS: 2 - 3C) Active venous thrombosis, pulmonary embolismand prevention of recurrent venous thrombosis: 2 - 3D) Prevention of arterial thromboembolismincluding patients with mechanical heart valves: 3 - 4.5Order Comment: STAT FOR CT BX Result Comment: [...] patients with mechanical heart valves: 3 - 4.5Performed By: #### CBC, PP #### [facility] [address] [place] [address] USALeukocytes [#/volume] corrected for nucleated erythrocytes in Blood by Automated counOrdered By: Claribel Pickett on 09-86-6770LKV corrected for nucl RBC Auto (Bld) [#/Vol]8.0 10*3/uL3.8-11.6FJ.W. Ruby Memorial HospitalLeukocytes [#/volume] in Blood by Automated countOrdered By: Claribel Pickett on 43-77-4923LYT (Bld) [#/Vol]8.0 10*3/uLNormal3.8-11.6FJ.W. Ruby Memorial HospitalComment on above:Order Comment: STAT FOR CT BXPerformed By: #### CBC, PP #### [facility] [address] [place] [id number] USALymphocytes [#/volume] in Blood by Automated countOrdered By: Claribel Nieves on 63-57-9434Ctymolrtgrw (Bld) [#/Vol]1.3 10*3/uLNormal 1.00-4.8[facility] HospitalComment on above:Order Comment: STAT FOR CT BXPerformed By: #### CBC, PP #### [facility] [address] [place] [address] USALymphocytes/100 leukocytes in Blood by Automated count Ordered By: Claribel Nieves on 65-95-4498Mhvmisctbzh/100 WBC (Bld)16.7 %Normal. [facility] HospitalComment on above:Order Comment: STAT FOR CT BX Performed By: #### CBC, PP #### [facility] [address] [place] [address] [Entitic mass] by Automated countOrdered By: Claribel Nieves on 07-49-3221PAX (RBC) [Entitic mass]33.5 elHiqtqi68.7-34.3FJ.W. Ruby Memorial HospitalComment on above:Order Comment: STAT FOR CT BXPerformed By: #### CBC, PP #### [facility] [address] [place], [place] [id number] [facility] Auto (RBC) [Mass/Vol]Ordered By: Claribel Nieves on 54-94-6895PGZO (RBC) [Mass/Vol]34.1 g/dL32.0-35.0[facility] HospitalV [Entitic volume] by Automated countOrdered By: Claribel Nieves on 24-12-0350RUW (RBC) [Entitic vol]98.1 aMCeyits01-698YoshtmzyfDelaware County HospitalComment on above:Order Comment: STAT FOR CT BXPerformed By: #### CBC, PP #### [facility] [address] [place] [address] USANeutrophils [#/volume] in Blood by Automated countOrdered By: Claribel Pickett on 83-79-3191Hjojhgihmwr (Bld) [#/Vol]5.8 10*3/uLNormal 1.8-7.7FJ.W. Ruby Memorial HospitalComment on above:Order Comment: STAT FOR CT BXPerformed By: #### CBC, PP #### [facility] [address] [place] [id number] USANucleated erythrocytes [Presence] in Blood by Automated countOrdered By: Claribel Pickett on 65-27-6560Lbohjstdt RBC Auto Ql (Bld)0.0 /100{WBC}0-0.5FJ.W. Ruby Memorial HospitalPathology Request for Lab Corpon 72-35-6236Xdcxiwyvl Request for Lab CorpNoAnson Community Hospital Physician Group Comment on above:Order Comment: BM BIOPSYResult Comment: See report. Scanned copy available in EMR. PERFORMED BY: [place] [address] PATHOLOGIST LARD RENDERER KATRINA PATTERSON M.D.Performed By: #### PATH TO [facility] #### [place] [id number] USAPlatelet mean volume [Entitic volume] in Blood by Automated countOrdered By: Claribel Pickett on 42-20-7614Wzxzkmpf mean volume (Bld) [Entitic vol]7.2 fLNormal6.3-10.7FJ.W. Ruby Memorial HospitalComment on above:Order Comment: STAT FOR CT BXPerformed By: #### CBC, PP #### [facility] [address] [place] [id number] USAPlatelets [#/volume] in Blood by Automated countOrdered By: Calribel Pickett on [id number] (Bld) [#/Vol]271 10*3/jNWsuyrv271-570 Delaware County HospitalComment on above:Order Comment: STAT FOR CT BX Performed By: #### CBC, PP #### [facility] [address] [place] [address] USAProthrombin time (PT)Ordered By: Claribel Pickett on [id number] Coag (PPP) [Time]11.8 sNormal9.0-12.9Delaware County HospitalComment on above:A hematocrit value greater than 55% may lead to inaccurate results in coagulation testing. Patientshaving hematocrit values >55% require a special collection tube for coagulation studies. Please contact the laboratory at [phone] for redraw instructions.Order Comment: STAT FOR CT BX Result Comment: A hematocrit value greater than 55% may lead to inaccurate results in coagulation testing. Patients having hematocrit values >55% require a special collection tube for coagulation studies. Please contact the laboratory at [phone] for redraw instructions.Performed By: #### CBC, PP #### [facility] [address] [place] [address] USAXR KNEE RT 3 VWSon [id number] KNEE RT 3 VWSXR KNEE RT 3 VWS CLINICAL INFORMATION: Right medial knee pain TECHNIQUE: XR KNEE RT 3 VWS 3 views the right knee were obtained. Moderate to severe osteoarthritic changes noted with joint space narrowing most significant medially. Chondrocalcinosis appreciated laterally. There is no joint effusion or obvious fracture. IMPRESSION: Medial predominant osteoarthritis. Finalized by Karson Garcia MD on 01/26/2024 10:55 PMNormalProMedica Sherman Oaks Hospital And The Grossman Burn CenterUS CAROTID ART BILon [id number] CAROTID ART BILEXAMINATION: US CAROTID ART GONZALEZ HISTORY: Dizziness and giddiness , [...] Electronically authenticated by: JAMIR SANCHEZ Date: 2022-11-06 05:46[facility]ina HospitalBNPon [id number] peptide B (Bld) [Mass/Vol]55.0 pg/mLNormal<=1,800.0St. Charles HospitalComment on above:Performed By: #### HSTROPN, CMP, BNP, MG #### [facility] [address] [address] [address] Mckeon ChangECHOCARDIO M/2D COMPLETEon [id number] M/2D COMPLETE Patient: ELLI LINDSEY Exam Date: 11/05/2022 : 1945 Gender:F Ordering : ADI SAL Admission #: [id number] Family : Order #: [id number] CLICK HERE TO VIEW EXAM ECHOCARDIOGRAM REPORT [...] by: Tk Lopez M.D. on 11/08/2022 at 15:17NormalThTrinity Health System East CampusMAGNESIUMon [id number] [Mass/Vol]2.0 mg/dLNormal1.8-2.4The [facility] HospitalComment on above:Performed By: #### HSTROPN, CMP, BNP, MG #### [facility] [address] [place] [address] Dr. Linda Hernandez 14(COMP METB)on [id number] [Mass/Vol]3.7 g/dLNormal 3.4-5.0The [facility] HospitalComment on above:Performed By: #### HSTROPN, CMP, BNP, MG #### [facility] [address] [address] [address] Linda ParkAlbumin/Globulin [Mass ratio]1.1 {ratio}NormalThe [facility] HospitalComment on above:Performed By: #### HSTROPN, CMP, BNP, MG #### [facility] [address] [place] [address] Dr. Linda Sidhu [Catalytic activity/Vol]84 U/NDqanvh51-274Uaz [facility] HospitalComment on above:Performed By: #### HSTROPN, CMP, BNP, MG #### [facility] [address] [place] [address] Dr. Linda Perla [Catalytic activity/Vol]17 U/HAqjwfu45-72Qli [facility] HospitalComment on above:Performed By: #### HSTROPN, CMP, BNP, MG #### [facility] [address] [place] [address] Dr. Linda Carrilloon gap [Moles/Vol]10.8 mmol/LNormalThe [facility] Comment on above:Performed By: #### HSTROPN, CMP, BNP, MG #### [facility] [address] [place] [address] Dr. Linda Mejia [Catalytic activity/Vol]15 U/EQjoocd46-06Zol [facility] HospitalComment on above:Performed By: #### HSTROPN, CMP, BNP, MG #### [facility] [address] [place] [address] Dr. Linda ParkBilirubin [Mass/Vol]0.2 mg/dLNormal0.2-1.0[facility] Comment on above:Performed By: #### HSTROPN, CMP, BNP, MG #### [facility] [address] [place] [address] Dr. Linda ParkCalcium [Mass/Vol]9.1 mg/dLNormal8.5-10.1[facility] Comment on above:Performed By: #### HSTROPN, CMP, BNP, MG #### [facility] [address] [place] [address] Dr. Linda ParkChloride [Moles/Vol]104 mmol/PVzhdns06-861FsgSt. Charles Hospital Comment on above:Performed By: #### HSTROPN, CMP, BNP, MG #### [facility] [address] [place] [address] Dr. Linda ParkCO2 [Moles/Vol]30.8 mmol/PZhmimx87.0-32.0The [facility] Comment on above:Performed By: #### HSTROPN, CMP, BNP, MG #### [facility] [address] [place] [address] Dr. Linda ParkCreatinine [Mass/Vol]0.94 mg/dLNormal0.55-1.02[facility] Osteopathic Clinicment on above:Performed By: #### HSTROPN, CMP, BNP, MG #### [facility] [address] [place] [address] Dr. Linda HendrixGFR-AF SOUTH AFRICAN>60Normal>=60The [facility] HospitalComment on above:Performed By: #### HSTROPN, CMP, BNP, MG #### [facility] [address] [place] [address] Dr. Linda HendrixGFR-NON AF GBKWDTFK56 mL/min/1.14n7Boskkreslu low>=60The [facility] HospitalComment on above:Performed By: #### HSTROPN, CMP, BNP, MG #### [facility] [address] [place] [address] Dr. Linda ParkGlobulin (S) [Mass/Vol]3.5 g/dLNormalThe [facility] HospitalComment on above:Performed By: #### HSTROPN, CMP, BNP, MG #### [facility] [address] [place] [address] Dr. Linda ParkGlucose [Mass/Vol]78 mg/qVLuadeb89-724VkpSt. Charles Hospital Comment on above:Performed By: #### HSTROPN, CMP, BNP, MG #### [facility] [address] [place] [address] Dr. Linda ParkPotassium [Moles/Vol]4.6 mmol/LNormal3.5-5.1[facility] Comment on above:Performed By: #### HSTROPN, CMP, BNP, MG #### [facility] [address] [place] [address] Dr. Linda ParkProtein [Mass/Vol]7.2 g/dLNormal6.4-8.2[facility] Comment on above:Performed By: #### HSTROPN, CMP, BNP, MG #### [facility] [address] [address] [address] Linda ParkSodium [Moles/Vol]141 mmol/RWhgtau963-635Xuq [facility] Comment on above:Performed By: #### HSTROPN, CMP, BNP, MG #### [facility] [address] [address] [address] Linda ParkUrea nitrogen [Mass/Vol]17.0 mg/dLNormal7.0-18.0The [facility] HospitalComment on above:Performed By: #### HSTROPN, CMP, BNP, MG #### [facility] [address] [address] [address] Linda ParkUrea nitrogen/Creatinine [Mass ratio]18.1 mg/mgNormalThe [facility] HospitalComment on above:Performed By: #### HSTROPN, CMP, BNP, MG #### [facility] [address] [address] [address] Linda Gay, HIGH SENSITIVITYon 28-76-3121NZNTBK6.2 pg/mLNormal 4.0-51.3The [facility] HospitalComment on above:Result Comment: CUT-OFF POINTS HAVE BEEN ESTABLISHED BASED ON THE FOURTH UNIVERSAL DEFINITIONS OF MYOCARDIAL INFARCTION. THE UPPER REFERENCE LIMIT (URL) OF TROPONIN, DEFINED THE 99TH PERCENTILE OF cTnI DISTRIBUTION IN A REFERENCE POPULATION, HAS BEEN CONFIRMED THE DECISION THRESHOLD FOR ID DIAGNOSIS.Performed By: #### HSTROPN, CMP, BNP, MG #### [facility] [address] [address] [address] Linda ParkXR CHEST 2 Von [id number] CHEST 2 VEXAM: XR CHEST 2 V HISTORY: Dyspnea; technologist [...] Electronically authenticated by: TERRENCE ALBERTO Date: 2022-11-05 18:32[facility] HospitalHEMOGRAM AND PLATELon [id number] (Bld) [Volume fraction]27.8 %Critically low36.0-48.0The [facility] HospitalComment on above: Performed By: #### HSTROPN, CMP, BNP, MG #### [facility] [address] [place] [address] Dr. Linda ParkHemoglobin (Bld) [Mass/Vol]8.8 g/dLCritically low12.0-16.0The [facility] HospitalComment on above:Performed By: #### HSTROPN, CMP, BNP, MG #### [facility] [address] [place] [address] Dr. Linda Wilcox (RBC) [Entitic mass]29.0 giQzzsfy74.7-34.0The [facility] HospitalComment on above:Performed By: #### HSTROPN, CMP, BNP, MG #### [facility] [address] [place] [address] Dr. Linda Wilcox (RBC) [Mass/Vol]31.7 g/yXIlnwjp21.9-35.2The [facility] HospitalComment on above:Performed By: #### HSTROPN, CMP, BNP, MG #### [facility] [address] [place] [address] Dr. Linda Wilcox (RBC) [Entitic vol]91.7 xWAmxfmj65.0-99.0The [facility] HospitalCompromedica cold[facility] on above:Performed By: #### HSTROPN, CMP, BNP, MG #### [facility] [address] [place] [address] Dr. Linda ParkPLT217 103/xiXcnnds847-030Zwr Kb HospitalComment on above: Performed By: #### HSTROPN, CMP, BNP, MG #### [facility] [address] [address] [address] Linda ParkRBC3.03 106/ulCritically low4.20-5.40The [facility] on above:Performed By: #### HSTROPN, CMP, BNP, MG #### [facility] [address] [address] [address] Linda ParkWBC6.4 103/ulNormal4.0-11.0The [facility] HospitalComment on above: Performed By: #### HSTROPN, CMP, BNP, MG #### [facility] [address] [place] [address] Dr. Linda ParkLIPID PROFILEon [id number]-HDL RATIO NORMSEE [facility] HospitalCompromedica [facility] on above:Result Comment: 3.3 - 4.4 LOW RISK 4.4 - 7.1 AVERAGE RISK 7.1 - 11.0 MODERATE RISK >11.0 HIGH RISKPerformed By: #### HSTROPN, CMP, BNP, MG #### [facility] [address] [place] [address] Dr. Linda Ewingesterol [Mass/Vol]166 mg/dLNormal<=200The [facility] Comment on above:Performed By: #### HSTROPN, CMP, BNP, MG #### [facility] [address] [place] [address] Dr. Linda ParkCholesterol in HDL [Mass/Vol]54 mg/rWSoudmb34-19VoySt. Charles HospitalComment on above:Performed By: #### HSTROPN, CMP, BNP, MG #### [facility] [address] [place] [address] Dr. Linda ParkCholesterol in LDL [Mass/Vol]70.8 mg/dLCleveland Clinic Medina HospitalCompromedica coldwater regional hospital on above:Performed By: #### HSTROPN, CMP, BNP, MG #### [facility] [address] [place] [address] Dr. Yilan ChangCholesterol.total/Cholesterol in HDL [Mass ratio]3.1 {ratio} NormalThe [facility] Clinic Euclid Hospitalment on above:Performed By: #### HSTROPN, CMP, BNP, MG #### [facility] [address] [place] [address] Dr. Linda Rivas NORMAL> or = 60 mg/dl - LOW CARDIOVASCULAR RISK <40 mg/dl - HIGH CARDIOVASCULAR RISKCleveland Clinic Medina HospitalComment on above:Performed By: #### HSTROPN, CMP, BNP, MG #### [facility] [address] [place] [address] Dr. Linda ParkLDL CALC NORMALSEE BELOWCleveland Clinic Medina HospitalComment on above:Result Comment: <100 mg/dl OPTIMAL 100 - 129 mg/dl NEAR OR ABOVE OPTIMAL 130 - 159 mg/dl BORDERLINE HIGH 160 - 189 mg/dl HIGH >190 mg/dl VERY HIGH Performed By: #### HSTROPN, CMP, BNP, MG #### [facility] [address] [place] [address] Dr. Linda ParkTriglyceride [Mass/Vol]206 mg/dLCritically high<=150The [facility] HospitalCompromedica cold[facility] hospital on above:Performed By: #### HSTROPN, CMP, BNP, MG #### [facility] [address] [place] [address] Dr. Linda ParkVLDL CALC41.2 mg/dLNoMercy Health St. Anne HospitalComment on above: Performed By: #### HSTROPN, CMP, BNP, MG #### [facility] [address] [place] [address] Dr. Linda ParkPROF 14(COMP METB)on 98-45-2558Lxggety [Mass/Vol]3.7 g/dLNormal 3.4-5.0The [facility] on above:Performed By: #### HSTROPN, CMP, BNP, MG #### [facility] [address] [place] [address] Dr. Linda ParkAlbumin/Globulin [Mass ratio]1.1 {ratio}NormalThe Kb HospitalComment on above:Performed By: #### HSTROPN, CMP, BNP, MG #### [facility] [address] [address] [address] Linda Sidhu [Catalytic activity/Vol]84 U/SLmvifa99-036Nje [facility] on above:Performed By: #### HSTROPN, CMP, BNP, MG #### [facility] [address] [address] [address] Linda Perla [Catalytic activity/Vol]17 U/WLdpzpe72-59Lzj [facility] HospitalComment on above:Performed By: #### HSTROPN, CMP, BNP, MG #### [facility] [address] [place] [address] Dr. Linda Quintero gap [Moles/Vol]11.8 mmol/LNormalSt. Charles Hospital Comment on above:Performed By: #### HSTROPN, CMP, BNP, MG #### [facility] [address] [place] [address] Dr. Linda Mejia [Catalytic activity/Vol]19 U/KXdbwcq14-94Lfx [facility] Hospitalment on above:Performed By: #### HSTROPN, CMP, BNP, MG #### [facility] [address] [place] [address] Dr. Linda ParkBilirubin [Mass/Vol]0.4 mg/dLNormal0.2-1.0The [facility] Comment on above:Performed By: #### HSTROPN, CMP, BNP, MG #### [facility] [address] [place] [address] Dr. Linda ParkCalcium [Mass/Vol]9.5 mg/dLNormal8.5-10.1[facility] Comment on above:Performed By: #### HSTROPN, CMP, BNP, MG #### [facility] [address] [place] [address] Dr. Linda ParkChloride [Moles/Vol]104 mmol/KGtiggj04-739Tpp [facility] Comment on above:Performed By: #### HSTROPN, CMP, BNP, MG #### [facility] [address] [place] [address] Dr. Linda ParkCO2 [Moles/Vol]28.6 mmol/UYfefvt79.0-32.0The [facility] Comment on above:Performed By: #### HSTROPN, CMP, BNP, MG #### [facility] [address] [place] [address] Dr. Linda ParkCreatinine [Mass/Vol]0.87 mg/dLNormal0.55-1.02St. Charles HospitalComment on above:Performed By: #### HSTROPN, CMP, BNP, MG #### [facility] [address] [place] [address] Dr. Linda HendrixGFR-AF SOUTH AFRICAN>60Normal>=60The [facility] HospitalComment on above:Performed By: #### HSTROPN, CMP, BNP, MG #### [facility] [address] [place] [address] Dr. Linda HendrixGFR-NON AF SOUTH AFRICAN>60Normal>=60St. Charles HospitalComment on above:Performed By: #### HSTROPN, CMP, BNP, MG #### [facility] [address] [place] [address] Dr. Linda ParkGlobulin (S) [Mass/Vol]3.3 g/dLNormalThe [facility] HospitalComment on above:Performed By: #### HSTROPN, CMP, BNP, MG #### [facility] [address] [place] [address] Dr. Linda ParkGlucose [Mass/Vol]95 mg/zWYfykyf17-727LzrSt. [facility] Hospital Comment on above:Performed By: #### HSTROPN, CMP, BNP, MG #### [facility] [address] [place] [address] Dr. Linda ParkPotassium [Moles/Vol]4.4 mmol/LNormal3.5-5.1The [facility] Comment on above:Performed By: #### HSTROPN, CMP, BNP, MG #### [facility] [address] [address] [address] Linda ParkProtein [Mass/Vol]7.0 g/dLNormal6.4-8.2The [facility] Comment on above:Performed By: #### HSTROPN, CMP, BNP, MG #### [facility] [address] [address] [address] Linda ParkSodium [Moles/Vol]140 mmol/GJhhwxu203-331Upb [facility] Comment on above:Performed By: #### HSTROPN, CMP, BNP, MG #### [facility] [address] [address] [address] Linda ParkUrea nitrogen [Mass/Vol]14.0 mg/dLNormal7.0-18.0The [facility] HospitalComment on above:Performed By: #### HSTROPN, CMP, BNP, MG #### [facility] [address] [address] [address] Linda Rueda nitrogen/Creatinine [Mass ratio]16.1 mg/mgNoMercy Health St. Anne HospitalComment on above:Performed By: #### HSTROPN, CMP, BNP, MG #### [facility] [address] [place] [address] Dr. Linda ParkXR LSPINE MIN 4 VIEWSon 32-02-5843OB LSPINE MIN 4 VIEWS EXAMINATION: XR LSPINE [...] Electronically authenticated by: JAMIR SANCHEZ Date: 2022-04-30 06:55[facility] MAMM SCREEN 3D GONZALEZ CADon [id number] MAMM SCREEN 3D GONZALEZ CAD Patient: ELLI LINDSEY Exam Date: 03/05/2022 : 1945 Gender:F Ordering : DR DOCTOR ZAVALA Admission #: [id number] Family : DR. SAMINA TA M.D. Order #: [id number] CLICK HERE TO VIEW EXAM RADIOLOGY REPORT [...] unknown cancer at age 72. LOCATION: [facility] BREAST COMPOSITION: Scattered areas fibroglandular density. [...] Jose Rafael Arndt MD on 03/05/2022 at 12:09[facility] Basic Metabolic Profon 09-30-2017(cont.)NormalMercy Peacehealth Southwest Medical CenterComment on above:Result Comment: Average GFR for 70 or more years old: 75 mL/min/1.73sq mChronic Kidney Disease: <60 mL/min/1.73sq mKidney failure: <15 mL/min/1.73sq meGFR calculated using average adult body mass. Additional eGFR calculator available at:http://www.PlayMob.Liberata/multiple_crcl_2012.htmPerformedat [facility] [address] [place] [address] Performed By: #### CDP, ALCB, BMP, TSH ####[address] [address] Anion gap13 mmol/LNormal9-17MerKittitas Valley Healthcare HospitalComment on above:Performed By: #### CDP, ALCB, BMP, TSH ####[address] [address] BUN/CRE Yoezl93Uwhp 9-20[facility] HospitalComment on above:Performed By: #### CDP, ALCB, BMP, TSH ####[place] [id number] Calcium9.4 mg/dLNormal8.6-10.4MerShriners Hospital for ChildrenComment on above:Performed By: #### CDP, ALCB, BMP, TSH ####[address] [address] Siqgcrni259 mmol/IMpwmop83-233NilkwShriners Hospital for ChildrenComment on above:Performed By: #### CDP, ALCB, BMP, TSH ####[address] [address] IV944 mmol/LNormal 20-31MerShriners Hospital for ChildrenComment on above:Performed By: #### CDP, ALCB, BMP, TSH ####[place] [address] Creatinine0.66 mg/dLNormal0.50-0.90[facility] HospitalComment on above: Performed By: #### CDP, ALCB, BMP, TSH ####[address] [place] [id number] eGFR (non-black)mL/min/{1.73_m2}Normal>60[facility] HospitalComment on above:Performed By: #### CDP, ALCB, BMP, TSH ####[address] [address] Glucose mass conc92 mg/aQVzhpve66-42FrgvtProvidence Centralia HospitalComment on above: Performed By: #### CDP, ALCB, BMP, TSH ####[address] [address] Potassium molar conc4.1 mmol/LNormal3.7-5.3 [facility] WestComment on above:Performed By: #### CDP, ALCB, BMP, TSH ####[address] [address] Sodium 139 mmol/YBditwv205-974YyyhbRegency Hospital Cleveland WestComment on above:Performed By: #### CDP, ALCB, BMP, TSH ####[place] [address] Urea dmrclqah78 mg/dLNormal8-23[facility] WestCompromedica cold[facility] hospital on above:Performed By: #### CDP, ALCB, BMP, TSH ####[place] [address] Staging:NOT REPORTEDNormalRegency Hospital Cleveland WestComment on above:Performed By: #### CDP, ALCB, BMP, TSH ####[place] [address] CBC with Diffon 95-95-3901Ihj. Basophil0.00 k/uLNormal0.0-0.2MProvidence Centralia HospitalCompromedica coldwater regional hospital on above:Result Comment: Performed at [facility] [address] [place] [address] Performed By: #### CDP, ALCB, BMP, TSH ####[place] [address] Abs.Neutrophil (Seg)4.30 k/uLNormal1.8-7.7MerShriners Hospital for ChildrenComment on above:Performed By: #### CDP, ALCB, BMP, TSH ####[address] [address] Basophils/100 WBC Auto (Bld)1 %Normal 0-2[facility] Medical CenterComment on above:Performed By: #### CDP, ALCB, BMP, TSH ####[place] [address] Eosinophils0.10 10*3/uLNormal0.0-0.4MerShriners Hospital for ChildrenComment on above: Performed By: #### CDP, ALCB, BMP, TSH ####[address] [address] Eosinophils/100 leukocytes3 %Normal1-4MerShriners Hospital for ChildrenComment on above:Performed By: #### CDP, ALCB, BMP, TSH ####[address] [address] Erythrocyte distribution width Auto Ratio (RBC)13.6 %Inpwmg31.5-14.5MerShriners Hospital for Children Comment on above:Performed By: #### CDP, ALCB, BMP, TSH ####[address] [address] Erythrocytes (RBC)3.66 10*6/uLLow4.0-5.2[facility] Medical CenterComment on above:Performed By: #### CDP, ALCB, BMP, TSH ####[address] [address] Hematocrit (HCT)35.9 %Ldm18-30JeiscShriners Hospital for ChildrenComment on above:Performed By: #### CDP, ALCB, BMP, TSH ####[place] [address] Hemoglobin mass conc (Bld)12.1 g/dL Iglvvt37.0-16.0[facility] WestComment on above:Performed By: #### CDP, ALCB, BMP, TSH ####[address] [address] [phone] 10*3/uLNormal1.0-4.8[facility] WestComment on above:Performed By: #### CDP, ALCB, BMP, TSH ####[place] [address] Lymphocytes/100 inbmnjoewr91 %Toj78-90 [facility] WestComment on above:Performed By: #### CDP, ALCB, BMP, TSH ####[place] [address] MCH 33.1 xbVsurbe43-30DzmxsShriners Hospital for ChildrenComment on above:Performed By: #### CDP, ALCB, BMP, TSH ####[address] [address] MCHC mass conc (RBC)33.7 g/kDHqxxsy83-72LkcdmShriners Hospital for ChildrenComment on above:Performed By: #### CDP, ALCB, BMP, TSH ####[place] [address] DDY67.1 fLNormal 80-100[facility] WestComment on above:Performed By: #### CDP, ALCB, BMP, TSH ####[place] [address] Monocytes0.30 10*3/uLNormal0.2-0.8MerShriners Hospital for ChildrenComment on above: Performed By: #### CDP, ALCB, BMP, TSH ####[address] [address] Monocytes/100 leukocytes6 %Normal1-7MerShriners Hospital for ChildrenComment on above:Performed By: #### CDP, ALCB, BMP, TSH ####[place] [address] Neutrophil (Seg) 73 %Mzbj25-32WcjbdShriners Hospital for ChildrenComment on above:Performed By: #### CDP, ALCB, BMP, TSH ####[place] [address] Platelet mean volume (PMV)7.9 fLNormal6.0-12.0MerShriners Hospital for ChildrenComment on above:Performed By: #### CDP, ALCB, BMP, TSH ####[place] [address] Xqvljvhwc800 10*3/uL Vlobgm804-726HoqssShriners Hospital for ChildrenComment on above:Performed By: #### CDP, ALCB, BMP, TSH ####[place] [address] WBC (Leukocytes)5.8 10*3/uLNormal3.5-11.0[facility] on above:Performed By: #### CDP, ALCB, BMP, TSH ####[place] [address] Auto Diff PerformedNOT REPORTEDNoalRegency Hospital Cleveland WestComment on above:Performed By: #### CDP, ALCB, BMP, TSH ####[place] [address] Erythrocyte morphologyNOT REPORTEDNormalMercy [facility] Comment on above:Performed By: #### CDP, ALCB, BMP, TSH ####[place] [address] Erythrocytes (RBC)NOT REPORTEDNormalMercy Rancho Tehama Reserve HospitalComment on above:Performed By: #### CDP, ALCB, BMP, TSH ####[place] [address] Granulocytes/100 WBC (Bld)NOT REPORTEDNormal0.00-0.30MerShriners Hospital for ChildrenComment on above:Performed By: #### CDP, ALCB, BMP, TSH ####[place] [address] Immature granulocytes #/vol (Bld)NOT CUELGPEQEtuncj5FwxysRegency Hospital Cleveland WestComment on above:Performed By: #### CDP, ALCB, BMP, TSH ####[place] [address] PlateletsNOT REPORTEDNoCleveland Clinic Union HospitalComment on above:Performed By: #### CDP, ALCB, BMP, TSH ####[place] [address] WBC Morphology NOT REPORTEDNormalRegency Hospital Cleveland WestComment on above:Performed By: #### CDP, ALCB, BMP, TSH ####[place] [address] Drug Scr, Abuse, Uron 42-85-2595Osqfmqeipbt(s),UrNegative NormalNEGMercy Peacehealth Southwest Medical CenterComment on above:Result Comment: (Positive cutoff 1000 ng/mL)Performed By: #### LISS ####[address] [address] Barbiturate(s),UrNegativeNormalNEG [facility] on above:Result Comment: (Positive cutoff 200 ng/mL)Performed By: #### LISS ####[address] [address] Base excessNegativeNormalNEGUniversity Hospitals TriPoint Medical Center on above:Result Comment: (Positive cutoff 300 ng/mL)Performed By: #### LISS ####[address] [address] Benzodiazepine(s)PositiveAbmidwayNEGRegency Hospital Cleveland West Comment on above:Result Comment: (Positive cutoff 200 ng/mL)Performed By: #### LISS ####[address] [address] Cannabinoid(s),UrNegativeNormalNEGMerEvergreenHealth Medical Center on above:Result Comment: (Positive cutoff 50 ng/mL)Performed By: #### LISS ####[address] [address] Interpretive InfoAssay provides medical screening only. The absence of expected drug(s) and/orNormal [facility] WestCompromedica [facility] on above:Result Comment: metabolite(s) may indicate diluted or adulterated urine, limitations of testing or timing of collection.Testing for legal purposes should be confirmed by another method. To request confirmation of test result, please call the lab within 7 days of sample submission.Performed at [facility] [address] [place] [address] Performed By: #### LISS ####[address] [address] Opiate(s), UrNegativeNormalNEGMercy Peacehealth Southwest Medical CenterComment on above:Result Comment: (Positive cutoff 300 ng/mL) Performed By: #### LISS ####[address] [address] Oxycodone, UrinePositiveAbnormalNEGMercy [facility] Comment on above:Result Comment: (Positive cutoff 100 ng/mL)Performed By: #### LISS ####[address] [address] Phencyclidine, UrNegativeNormalNEGMercy [facility] Southwest Medical CenterComment on above:Result Comment: (Positive cutoff 25 ng/mL)Performed By: #### LISS ####[address] [address] Urine, methadone presence NegativeNormalNEGMercy [facility] Southwest Medical CenterComment on above:Result Comment: (Positive cutoff 300 ng/mL)Performed By: #### LISS ####[address] [address] Buprenorphrine, UrNOT REPORTEDNormalNEGMercy [facility] Southwest Medical CenterComment on above:Performed By: #### LISS ####[address] [address] MDMA, UrineNOT REPORTEDNormalNEGMercy [facility] Southwest Medical CenterComment on above:Performed By: #### LISS ####[address] [address] Methamphetamine, UrNOT REPORTEDNormalNEGMercy [facility] Medical CenterComment on above:Performed By: #### LISS ####[address] [address] Propoxyphene,UrineNOT REPORTEDNormal NEGMercy [facility] Southwest Medical CenterComment on above:Performed By: #### LISS ####[place] [address] Urine, tricyclic antidepressantsNOT REPORTEDNormalNEGMerShriners Hospital for ChildrenComment on above: Performed By: #### LISS ####[place] [address] Ethanol Alcoholon 21-57-8857Kbesabnuv/dLNormal<10MerShriners Hospital for ChildrenComment on above:Performed By: #### CDP, ALCB, BMP, TSH ####[place] [address] Ethanol percent <0.010NormalRegency Hospital Cleveland WestComment on above:Result Comment: Performed at [address] [address] Performed By: #### CDP, ALCB, BMP, TSH ####[place] [address] Thyroid Stim. Horm.on 56-01-0920Cwoghrl stimulating hormone (TSH)0.87 m[IU]/LNormal0.30-5.00[facility] Comment on above:Result Comment: [place] [address] Performed By: #### CDP, ALCB, BMP, TSH ####[place] [address] MAM DIGITAL DIAGNOSTIC BILATERALon 28-59-3509THS DIGITAL DIAGNOSTIC BILATERALThis is a summary report. The complete report is available in the patient's medical record. If you cannot access the medical record, please contact the sending organization for a detailed fax or copy. EXAMINATION:BILATERAL DIGITAL DIAGNOSTIC MAMMOGRAM, 04/27/2017 10:43 amTECHNIQUE:Diagnostic mammography of the bilateral breasts was performed. Computeraided detection was utilized in the interpretation of this exam.Views: MLO and craniocaudal full field digital mammographic images of bothbreasts pe rformed with 3D tomosynthesis.COMPARISON:14 April 2016; 22 April [...] ASSESSMENT - BENIGNA letter of notification will besent to the patient regarding the results.The [employer] recommends annual mammograms for women 40years and older.Interpreted by:TIM Robinigned by:Elli Aparicio MD04/27/17CC Recipients:Mark Francois MD - In [facility]arcel[facility] Ta - FaxFinal resultNormalMerShriners Hospital for Children Vital Signs Date TimeVital SignValuePerforming OjrsqfvkiYvuvxerw56-01-5225 08:36-0500Body tibryo198.4 cmAlyssa Karin SHAH-C Work Phone: [facility]11-04-2025 08:36-0500 Body mass index (BMI) [Ratio]36.7 kg/t6TjnntoGuillermina Frazier NP-C Work Phone: [facility]11-04-2025 08:36-0500 Body ncvuac06.33 kgAlyssa Karin ANESTHESIA ATTENDING-C Work Phone: [facility]11-04-2025 08:36-0500 Diastolic blood wtvfysdc24 mm[Hg]Guillerminadaryl Frazier ANESTHESIA ATTENDING-C Work Phone: [facility]11-04-2025 08:36-0500 Heart rate70 /minGuillermina Frazier ANESTHESIA ATTENDING-C Work Phone: [facility]11-04-2025 08:36-0500 SaO2% (BldA) [Mass fraction]96 %Guillermina Rodriguezland ANESTHESIA ATTENDING-C Work Phone: [facility]11-04-2025 08:36-0500 Systolic blood lqlahxis150 mm[Hg]Guillermina Frazier ANESTHESIA ATTENDING-C Work Phone: [facility]04-03-2025 11:31-0400 Body qisdja770.7 cmNicholas Brown DPM Work Phone: [facility] HospitalQgdqsguefb37-68-0583 11:31-0400Respiratory rate16 /minNicholas Brown DPM Work Phone: [facility] HospitalFidalhrude18-96-7755 11:21-0500Body ddnhjy596.7 cmNicholas Brown DPM Work Phone: [facility] HospitalLshobcicdx33-76-1767 11:21-0500Respiratory rate16 /minNicholas Brown DPM Work Phone: [facility] HospitalXqlpbbngxm23-13-1172 12:37-0500Body .4 Merlin Jones MD Work Phone: [facility]11-25-2024 12:37-0500Body mass index (BMI) [Ratio]36.29 kg/c5FxepbtKen Jones MD Work Phone: [facility]11-25-2024 12:37-0500Body gjzmoz10.28 kgKen Jones MD Work Phone: [facility]11-25-2024 12:37-0500Diastolic blood jhmnuets19 mm[Hg]Ken Jones MD Work Phone: [facility]11-25-2024 12:37-0500Heart rate 73 /minKen Jones MD Work Phone: [facility]11-25-2024 12:37-1717ZyR8% (BldA) [Mass fraction]97 %Ken Jones MD Work Phone: [facility]11-25-2024 12:37-0500Systolic blood mm[Hg]Ken Jones MD Work Phone: [facility]08-26-2024 11:10-0400Diastolic blood jxhseoeq36 mm[Hg]CAROLINE Lua McNeal Work Phone: [facility]08-26-2024 11:10-0400 Heart rate65 /minCAROLINE Lua Adam Work Phone: [phone]-[facility]08-26-2024 11:10-0400 Respiratory rate16 /minCAROLINE Lua Adam Work Phone: [phone]-[facility]08-26-2024 11:10-0400 SaO2% (BldA) [Mass fraction]98 %CAROLINE Lua Adam Work Phone: [facility]08-26-2024 11:10-0400 Systolic blood gurqukkr303 mm[Hg]CAROLINE Lua Adam Work Phone: [phone]-[facility]08-26-2024 09:19-0400 Body .94 cmAPRMarcelino Lua Adam Work Phone: [facility]08-26-2024 09:19-0400 Body .19 kgCAROLINE Lua Adam Work Phone: [phone]-[facility] Encounters Encounter DateEncounter TypeCare ProviderFacilityStart: 04-17-2025 End: 61-98-3862qxhvmaalqfVwuisp Marcelino FERRELL Work Phone: [phone]-Pgzbxjucd Health NeurologyStart: 04-17-2025 End: 84-77-9403Wcrdfha encounter procedureLosgabby Lester DONovant [facility] Work Phone: Start: 11-01-2024 End: 77-54-6717vgomesrzqaQHTH O RANKERProMedica Ames HospitalStart: 09-14-2024 End: 66-28-5916Hweasw flowsheetNicholas A Brown DPM Work Phone: [facility]IATRYStart: 09-14-2024 End: 60-30-3809Vjisla flowsheetNicholas A Brown DPM Work Phone: [facility]ODIATRYStart: 09-14-2024 End: 97-98-9396Ggqqtq outpatient visit 10 minutesNicholas A Brown DPM Work Phone: [facility] PODIATRYComment on above:Metatarsal deformity, left (Primary Dx); Pain due to onychomycosis of toenails of both feet; Metatarsal deformity, rightStart: 09-14-2024 End: 09-78-6393zqmytglabiJPXLZXVJ A DESTINNot AvailableStart: 07-06-2024 End: 45-37-9200Phoymw flowsheetNicholas A Brown DPM Work Phone: [facility]ODIATRYStart: 07-06-2024 End: 42-38-3370Ifgaja flowsheetNicholas A Brown DPM Work Phone: [facility]ODIATRYStart: 07-06-2024 End: 78-35-8121Smhhaj outpatient new 30 minutesNicholas A Brown DPM Work Phone: [facility] PODIATRYComment on above:Metatarsal deformity, right (Primary Dx); Pain due to onychomycosis of toenails of both feet; Metatarsal deformity, leftStart: 07-06-2024 End: 90-64-8819itugbaajtlQWBVIDXC A BROWNNot AvailableStart: 05-08-2024 End: 59-42-7010Bjovvx outpatient visit 25 minutesCarson E Oostra MD Work Phone: [facility] CardiologyComment on above: Coronary artery disease involving cow [place] coronary artery of [place] heart without angina pectoris (Primary Dx); Pulmonary hypertension ([facility]); Benign essential hypertension; Dyslipidemia; Dyspnea on exertionStart: 05-08-2024 End: 92-48-4906iipplzhtbkBUHPMC E OOSTRAProMedica Ames HospitalStart: 05-05-2024 End: 14-52-7078Ounqlrsyd encounterMarsha Layne [facility]ITALPro[facility]ica Physicians CardiologyStart: 04-12-2024 End: 83-11-2885Rkwmikldv encounterKimberlee Garza [facility] Work Phone: [facility] AUDComment on above:Hearing Aid ProblemStart: 03-30-2024 End: 06-31-2980AgcgpsPvso Jose G Gardnre Physicians CardiologyComment on above:Med RefillStart: 02-07-2024 End: 92-10-9250Izzctnbln to same day surgery centerCAROLINE Medina Work Phone: [facility] [place] Work Phone: Start: 02-07-2024 End: 45-11-4275bozvqwgiduBQFJ Faith McNeal Work Phone: [facility] Work Phone: Start: 01-26-2024 End: 28-70-9605zqphvbuktmTVERN CHEUT [facility] HospitalStart: 07-12-2023 Miracle Jeong MD Work Phone: [facility] Physicians CardiologyStart: 11-05-2022 End: 80-82-4273hpiducfzusBEIKK SHAMMOFacility:X7Plfeq: 09-24-2022 End: 26-98-4950vmipffnoswRYMHTXTXRRBS LAKSHMIPATHY .Facility:K7Yfmqo: 08-25-2022 Encounter for general adult medical examination without abnormal findingsLUCAS SHAMMOThe Duluth HospitalStart: 03-62-1407Gwkklkunn for preprocedural cardiovascular examinationDR BEAU Cole WILDER .The [facility] Hospitaltart: 08-25-2022 End: 77-19-4658hcozjcfjmrTC BEAU Cole WILDER .Facility:W5Ynozg: 08-24-2022 End: 79-51-1521Wkkiampmv for preprocedural cardiovascular examinationDR BEAU WILDER .Facility:A9Mlitv: 08-24-2022 End: 09-41-2480jdyhiiifxcFJ BEAU S WILDER .Facility:R0Qroec: 08-24-2022 End: 06-18-4932Kymgfgots for general adult medical examination without abnormal findingsLUCAS SHAMMOFacility:N5Zyoht: 08-20-2022 End: 19-43-8899ashaxahprjAW BEAU S WILDER .Facility:I9Lpbui: 08-04-2022 End: 93-76-0203gpfgidygnkLT BEAU S WILDER .Facility:L7Ggctu: 07-23-2022 End: 76-66-5805lagdrbocnmJC BEAU S WILDER .Facility:L5Cxdba: 07-07-2022 End: 81-17-5521mcwuzogogoIF BEAU S WILDER .Facility:I9Ppqhq: 06-23-2022 End: 80-21-2713uudjmdcgjyIV BEAU S WILDER .Facility:T2Gwoxl: 04-29-2022 End: 02-99-7551jzbplhzeegHJMKJ SHAMMOFacility:J2Ysuyx: 03-05-2022 End: 77-82-0579rvoaoyggwmEY DOCTOR MISCFacility:T1Bftbb: 09-30-2017 End: 90-53-0475Uzarpwuoo department patient visitALAN B [facility] Columbustart: 02-46-2673Ahpdwwc encounter procedureShukri Jeong MD Work Phone: [facility] SystemStart: 04-27-2017 End: 02-51-5187DtedwejhpjYLXIN T [facility] Procedures DateProcedureProcedure DetailPerforming ClinicianStart: 04-49-5989Uhf routine ecg w/least 12 lds w/i&rCarseben Jones MD Work Phone: Start: 36-39-2993Qjptrv-up visitFollow-upCARSON E OOSTRAStart: 22-61-8398Lezft depression screening assessmentShukri Jeong MD Work Phone: Start: 59-21-4885IOBO DOCTORROGER [facility]EEWAYStart: 15-48-6963FORYK DRUG SCREENROGER [facility] SHAWNEEWAYStart: 12-62-0331RCTKI METABOLIC PANEL KENZIE [facility]AWNEEWAYStart: 86-25-6028AOC WITH AUTO DIFFERENTIALROGER [facility]AWNEEWAYStart: 23-80-6652FBHWWKODWISC [facility]EEWAYStart: 79-87-7085IDJ WITHOUT REFLEXROGER KUWAY Start: 23-87-5614JrfhualxrcaiidacuzzdnixynutnWNCJW MOREJOSÉ Plan of Treatment DateCare ActivityDetailAuthorStart: 29-00-0182AFmF,Tdap and Td Vaccines (2 - Td or Tdap)DTaP,Tdap and Td Vaccines (2 - Td or Tdap)[facility] SystemStart: 17-15-8801Ovgeskc ScreeningTobacco ScreeningProAcmc Healthcare System Glenbeighca Health SystemStart: 11-23-2024 End: 06-65-5449Gyjbdrf encounter atffiyzcr01/12/2025 1:00 PM EDT Procedure Visit [facility] [address] [facility] [address] [place] [address] Baltazar Weir DPM [address] [facility] [address] [place] [address] [facility]ODIATRYStart: 09-14-2024 End: 40-49-2916Lkcydjw encounter procedureNOMS CI PODIATRYComment on above:Pain due to onychomycosis of toenails of both feet (Primary Dx); Metatarsal deformity, left; Metatarsal deformity, rightStart: 07-06-2024 End: 67-65-9898Smwiiiv encounter procedureNOMS CI PODIATRYComment on above: ArrivedStart: 20-12-1922QBXQY-19 Vaccine ( season)COVID-19 Vaccine ( season)[facility] SystemStart: 05-15-2024 End: 54-93-5303Vwyrl metabolic 2000 panel - Serum or PlasmaBasic Metabolic Panel Lab Routine Coronary artery disease involving [place] coronary artery of [place] heart without angina pectoris Pulmonary hypertension ([facility]) Benign essential hypertension Dyslipidemia Dyspnea on exertion Expected: 05/15/2024, Expires: 05/08/2025[facility] Work Phone: Comment on above:Expected: 05/15/2024, Expires: 05/08/2025Start: 05-09-2024 End: 74-27-2549Wclsnjg encounter soncumvea44/26/2024 10:00 AM EST Office Visit [facility] [address] [place] [phone] Ken Jones MD [address] [place] [address] [facility] CardiologyStart: 05-08-2024 End: 47-91-6445Ewjsuej encounter /25/2024 12:45 PM EST Office Visit [facility] [address] [place] [phone] Ken Jones MD [address] [place] [address] [facility] CardiologyStart: 17-47-0598Idhwo BMI ScreeningAdult BMI ScreeningProAcmc Healthcare System Glenbeighca Health SystemStart: 02-56-1804Cekjjuq ScreeningTobacco ScreeningProNorthwest Medical Center Health SystemStart: 31-64-6197AESSD-19 Vaccine ( season)COVID-19 Vaccine ()ProMCanby Medical Center SystemStart: 82-01-1633LJVWU-19 Vaccine ( season)COVID-19 Vaccine ( season)ProMCanby Medical Center SystemStart: 48-41-8505Walxhyxsr vaccinationInfluenza VaccineProNorthwest Medical Center Health SystemStart: 45-53-0236VsqqrqdyzAdena Pike Medical Centertart: 45-01-9669Icvd marrow samplingAdena Pike Medical Centertart: 17-62-6729Ccvec BMI Follow Up PlanAdult BMI Follow Up Plan [facility]ertart: 00-84-5980FSLDJ-19 Vaccine ( season) COVID-19 Vaccine ( season)[facility] SystemStart: 02-12-2023 Influenza vaccinationInfluenza VaccineProLima City Hospital SystemStart: 08-18-2022 Depression ScreeningDepression ScreeningFrye Regional Medical Centertart: 02-18-2022 Fall Risk ScreeningFall Risk ScreeningProSt. Rita's Hospitaltart: 02-18-2022 Medicare Annual Wellness VisitMedicare Annual Wellness VisitProSt. Rita's Hospitaltart: 34-85-3640Mhsu Risk ScreeningFall Risk ScreeningProMedica [facility] End: 63-46-5883Ggytq metabolic 2000 panel - Serum or PlasmaBasic Metabolic Panel Lab Routine Coronary artery disease involving [place] coronary artery of [place] heart without angina pectoris 1 Occurrences starting 03/31/2024 until 03/30/2025 [facility] Work Phone: Comment on above:1 Occurrences starting 03/31/2024 until 03/30/2025 End: 57-85-7733Nsqrrsxtk [Mass/volume] in Serum or PlasmaMagnesium Lab Routine Coronary artery disease involving [place] coronary artery of [place] heart without angina pectoris 1 Occurrences starting 03/31/2024 until 03/30/2025[facility] HospitalComment on above:1 Occurrences starting 03/31/2024 until 03/30/2025 Patient EducationCape Fear Valley [facility] Bone Marrow Aspiration or Biopsy Know your [facility] Work Phone: Immunizations Immunization DateImmunizationNotesCare DaukhhmcRvxvbmom32-59-3143qwkomgruz virus vaccine, unspecified formulationSShriners Hospitals for Children - Philadelphia 94-92-9188rvyrokrcj, injectable, quadrivalent, preservative freeShukri Jeong MD Work Phone: [facility] HospitalZvyhdx29-63-5403utljyvwkm virus vaccine, unspecified formulationShukri Jeong MD Work Phone: [facility] HospitalOlgduq62-69-0523ldnnabpsa, injectable, quadrivalent, contains preservativeShukri Jeong MD Work Phone: [phone] [place], [place] [address]09-30-2021COVID-19, mRNA, LNP- S, PF, 30mcg/0.3mL Norbert Jeong MD Work Phone: [phone] [place], [place] [address]03-02-2021COVID-19, mRNA, LNP- S, PF, 30mcg/0.3mL Norbert Jeong MD Work Phone: [phone] [place], [place] [address]02-08-2021COVID-19, mRNA, LNP- S, PF, 30mcg/0.3mL Norbert Jeong MD Work Phone: [phone] [place], [place] [address]08-25-2020influenza, injectable, quadrivalent, preservative James Jeong MD Work Phone: [phone] [place], [place] [address]10-24-2019zoster vaccine Farzad Jeong MD Work Phone: [phone] [place], [place] [address]09-26-2019influenza, high dose seasonal, preservative-James Jeong MD Work Phone: [phone] [place], [place] [address]03-21-2019zoster vaccine Farzad Jeong MD Work Phone: [phone] [place], [place] 25[address]09-06-2018Seasonal trivalent influenza vaccine, adjuvanted, preservative James Jeong MD Work Phone: [phone] [place], [place] [address]Ytsvrx81-51-3625biplpquelsqc polysaccharide vaccine, 23 valYordan Jeong MD Work Phone: [phone] [place], [place] [address]08-30-2017influenza virus vaccine, unspecified formulationShukri Jeong MD Work Phone: [phone] [place], [place] [address]09-08-2016influenza, seasonal, injectable, preservative James Jeong MD Work Phone: [facility] HospitalCsfpjo16-37-6624iqbgefivuomk conjugate vaccine, 13 valYordan Gomesel MD Work Phone: [facility] HospitalYrmmfu88-49-6848Itcowsjuz TIV (IM) Shukri Jeong MD Work Phone: [facility] HospitalNiugze39-32-6368soabarpfswol polysaccharide vaccine, 23 Andrez Jeong MD Work Phone: [facility] HospitalWekptw32-31-6421edxxcoithpxv polysaccharide vaccine, 23 Andrez Jeong MD Work Phone: [facility] HospitalAbjuzy74-93-4194srdbufaquqdw polysaccharide vaccine, 23 Andrez Jeong MD Work Phone: [facility] Payers DatePayer CategoryPayerPolicy [id number] (Managed Care) [id number]-[id number] Private Health [id number] [id number] 2023UnknownBCBS [facility] HMO/PPO/TRUST [id number] 2022-[facility] [phone] [address] [place] [id number] 2015Medicare [id number]. [id number] [id number] [id number] [id number] 2.16.840.1.951754.3.57[id number] 2.16.840.1.091827.3.57[id number] 2.16.840.1.340840.3.57[id number] 2.16.840.1.500368.3.57[id number] 2.16.840.1.834262.3.57[id number] 2.16.840.1.757745.3.57[id number] 2.16.840.1.744226.3.57[id number] 2.16840.1.346457.3.57[id number] 2.16840.1.116621.3.57[id number] 2.16.840.1.616283.3.57[id number] 2.16840.1.864169.3.57[id number] 2.16840.1.409581.3.57[id number] 2.16.840.1.145779.3.57[id number] 2.16840.1.108700.3.57[id number] 2.16.840.1.395411.3.57[id number] 2.16840.1.115342.3.57[id number] 2.16.840.1.75[id number] 2.16.840.1.740373.3.579.2.531 Social History DateTypeDetailFacilityStart: 02-07-2024 End: 43-42-9738Klhryag smoking status NHISNever smoked tobacco (finding) [facility]ertart: 17-84-4799Zcq Assigned At BirthFemale [facility] Centertart: 02-22-2023 End: 96-25-9650Ljwaulo of Social functionChildren's Hospital for Rehabilitation SystemStart: 02-22-2023 End: 01-51-1844Qfqswjf use panelProSt. Rita's Hospitaltart: 21-09-4599Exl assigned at birthNot on fileProLima City Hospital SystemStart: 55-87-8054Bcdiajt use and exposureSmokeless tobacco non-userChildren's Hospital for Rehabilitation SystemStart: 03-02-2023 End: 61-19-8918Ggiklct intakeCurrent drinker of alcohol (finding)[facility] HospitalFrequency of Communication with Friends and FamilyThree times a weekFrye Regional Medical Centertart: 20-23-6020Bgasiiinj02AvlUhaiim Health System Start: 31-04-1591ZvnWbifkj (finding)[facility] Clinical Notes 06-23-2022 to 09-14-2024 Note Date & PwzyNoscPixjfnwb49-46-2130 History of Present illness Narrative* Baltazar Weir, TASHA - 09/14/2024 11:40 AM EDT Patient: Mariela Lindsey : 1945 PCP: No [...] Past Medical History: Diagnosis Date Breast cancer ([facility]) Medications: No current outpatient medications on file. [...] Resource Strain: Low Risk (03/09/2019) Received from [facility] Overall Financial Resource Strain (CARDIA) Difficulty of Paying Living Expenses: Not hard at all Food Insecurity: No Food Insecurity (05/08/2024) Received from [facility] Hunger Screening Within the past 12 months we worried whether our food would run out before we got money to buy more.: Never True Within the past 12 months the food we bought just didn't last and we didn't have money to get more.: Never True Transportation Needs: No Transportation Needs (03/09/2019) Received from [facility] PRAPARE - Transportation Lack of Transportation (Medical): No Lack of Transportation (Non-Medical): No Physical Activity: Sufficiently Active (03/09/2019) Received from [facility] Exercise Vital Sign Days of Exercise per Week: 7 days Minutes of Exercise per Session: 50 min Stress: Stress Concern Present (03/09/2019) Received from [facility] [place] [employer]ational [employer] - Occupational Stress Questionnaire Feeling of Stress : To some extent Social Connections: Socially Integrated (03/09/2019) Received from [facility] Social Connection and Isolation Panel [NHANES] Frequency of Communication with Friends and Family: Three times a week Frequency of Social Gatherings with Friends and Family: Three times a week Attends [employer] Services: More than 4 times per year [...] accommodate her tailor bunion type deformities and patientstates that she will continue to do so and if any issues contact Podiatry. Briefly discuss surgicalintervention in 2 week postoperative timeframe for silver tailor's bunionectomy and contact Podiatry if symptoms worsen Baltazar Weir DPM documented in this encounterJefferson Memorial [id number] History of Present illness Narrative* Baltazar Weir DPM - 07/06/2024 11:30 AM EST Patient: Mariela Lindsey : 1945 PCP: No [...] Past Medical History: Diagnosis Date Breast cancer (CMS/[facility]) Medications: No current outpatient medications on file. [...] Resource Strain: Low Risk (03/09/2019) Received from [facility] Overall Financial Resource Strain (CARDIA) Difficulty of Paying Living Expenses: Not hard at all Food Insecurity: No Food Insecurity (05/08/2024) Received from [facility] Hunger Screening Within the past 12 months we worried whether our food would run out before we got money to buy more.: Never True Within the past 12 months the food we bought just didn't last and we didn't have money to get more.: Never True Transportation Needs: No Transportation Needs (03/09/2019) [facility] Lack of Transportation (Medical): No Lack of Transportation (Non-Medical): No Physical Activity: Sufficiently Active (03/09/2019) Received from [facility] Exercise Vital Sign Days of Exercise per Week: 7 days Minutes of Exercise per Session: 50 min Stress: Stress Concern Present (03/09/2019) Received from [facility] [place] [employer] [facility] - Occupational Stress Questionnaire Feeling of Stress : To some extent Social Connections: Socially Integrated (03/09/2019) Received from [facility] Social Connection and Isolation Panel [NHANES] Frequency of Communication with Friends and Family: Three times a week Frequency of Social Gatherings with Friends and Family: Three times a week Attends [employer] Services: More than 4 times per year [...] accommodate her tailor bunion type deformities and patientstates that she will continue to do so and if any issues contact Podiatry Baltazar Weir DPM documented in this encounterJefferson Memorial [id number] History of Present illness Narrative* Ken Jones MD - 05/08/2024 12:45 PM EST Mariela Richardschani Date of visit: 05/08/2024 Date of : 1945 Age: 78 y.o. Patient Active Problem List Diagnosis Benign essential hypertension Chronic right-sided low back pain with right-sided sciatica Dyslipidemia [place]ignant [place] of [place] [place] Temporomandibular joint disorder Pseudophakia Medicare annual wellness visit, subsequent Pain in both knees Severe obesity (BMI 35.0-39.9) with comorbidity [place] [place] [facility] [place] Gastroesophageal reflux disease with esophagitis Thoracic outlet syndrome Depressive disorder Tension headache Sprain of right rotator cuff capsule Spinal stenosis of lumbar region Facet arthritis of lumbar region Scoliosis of lumbar spine Abnormal echocardiogram Pulmonary hypertension [place] [place] Allergies Allergen Reactions Hay [...] 1 tablet (15 mg total) by mouth inthe morning. Indications: heartburn. levocetirizine (XYZAL) 5 mg tablet Take 1 tablet (5 mg total) by mouth nightly. lisinopril-hydroCHLOROthiazide (PRINZIDE,ZESTORETIC) 20-25 mg per tablet Take 0.5 tablets by mouth in the morning and 0.5 tablets before bedtime. 90 tablet 0 stuhxpzr-arsy-JS-calcium &mins (THERAGRAN-M) 9 mg iron-400 mcg tablet Take 1 tablet by mouth inthe morning. Indications: lack in minerals, vitamin deficiency. pravastatin (PRAVACHOL) 20 mg tablet TAKE 1 TABLET DAILY 90 tablet 3 vitamin E 200 units capsule Take 2 capsules (400 Units total) by mouth in the morning. Indications:deficiency of vitamin E. traMADoL (ULTRAM) 50 mg [...] female presents to cardiology clinic today for follow- up. Patient is doingwell. Patient denies any chest pain, shortness of breath, palpitations, lightheadedness, dizziness,or syncope. Past Medical History: Diagnosis Date Breast cancer ([facility]) 2013 RT GERD (gastroesophageal reflux disease) Hyperlipidemia Hypertension Menopausal syndrome (hot flashes) No data recorded No data recorded No data recorded Past Surgical History: Procedure Laterality Date APPENDECTOMY BELPHAROPTOSIS REPAIR Bilateral BLEPHAROPLASTY W/ LASER BREAST BIOPSY BREAST LUMPECTOMY Right 2014 RADIATION AND CHEMO Cardiac catheterization- Cors + Right heart + LV gram/press [id number] N/A 02/08/2023 Performed by Abdiel Lemus MD at [facility] CARDIAC CATH LABS CATARACT EXTRACTION Bilateral [...] 50 min Stress: Stress Concern Present (03/09/2019) [place] [employer] - Occupational Stress Questionnaire Feeling of Stress : To some extent Social Connections: Socially Integrated (03/09/2019) Social Connection and Isolation Panel [NHANES] Frequency of Communication with Friends and Family: Three times a week Frequency of Social Gatherings with Friends and Family: Three times a week Attends [employer] Services: More than 4 times per year [...] 73 Ht 152.4 cm (5') Wt 84.3 kg(185 lb 12.8 oz) SpO2 97% BMI 36.29 kg/m No orders of the defined types were placed in this encounter. There are no discontinued medications. IMPRESSIONS/PLAN 1. Coronary artery disease involving [place] coronary artery of [place] heart without angina pectoris - POCT EKG 2. Pulmonary hypertension (CMS-HCC) 3. Benign essential hypertension 4. Dyslipidemia 5. 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) Breast cancer chemo/XRT Iron-deficiency anemia RHC 01/2024: [...] No follow-ups on file. PCP: FATUMA MEDINA APRN-PHOTO PRINTER Referring Physician: Adi Sal APRN-ELEVATOR [employer] [address] [place] [address] documented in this encounterBrightlook HospitalUmaChaka Media11-22-2024 Miscellaneous Notes* Telephone Encounter - Marsha Layne CMA - 05/05/2024 9:34 AM EST Called patient to remind them to bring their most current copy of their medication list with them to their appt. Patient verbalizes understanding. documented in this encounterProMedica [facility]11-22-2024 Telephone encounter Note* Telephone Encounter - Marsha Layne CMA - 05/05/2024 9:34 AM EST Called patient to remind them to bring their most current copy of their medication list with them to their appt. Patient verbalizes understanding. [facility]11-12-2024 Telephone encounter Note* Telephone Encounter - Ailyn Sheffield MA - 04/25/2024 3:56 PM EST Patient called. I tracked order and aids arrived today from [employer]. Told patient the aids could be sent to [facility] where she can pick them up. [facility] hours were reviewed. [facility] [id number] Miscellaneous Notes* Telephone Encounter - Ailyn Sheffield MA - 04/25/2024 3:56 PM EST Patient called. I tracked order and aids arrived today from [employer]. Told patient the aids could be sent to [facility] where she can pick them up. [facility] hours were reviewed. * Telephone Encounter - JUAN DAVID Lopez - 04/17/2024 9:11 AM EST Pt wants us to call her at [phone] when her aids are back from repair * Telephone Encounter - JUAN DAVID Lopez - 04/12/2024 11:19 AM EDT Pt dropped off both aids in [place] office. Aids not holding charge and she believes filters need to be changed. Aids go out of warranty 05-21-24. Called pt and told her I recommend sending aid in for EOW repair + check battery and she agreed. Pt notified [employer] has been taking 2-3 weeks for repairs.We will call her when aids are back from [employer] documented in this encounterJefferson Memorial [id number] Telephone encounter Note* Telephone Encounter - JUAN DAVID Lopez - 04/17/2024 9:11 AM EST Pt wants us to call her at [phone] when her aids are back from repair [facility] Work Phone: [phone] 279-230010-30-2024 Telephone encounter Note* Telephone Encounter - JUAN DAVID Lopez - 04/12/2024 11:19 AM EDT Pt dropped off both aids in [place] office. Aids not holding charge and she believes filters need to be changed. Aids go out of warranty 05-21-24. Called pt and told her I recommend sending aid in for EOW repair + check battery and she agreed. Pt notified [employer] has been taking 2-3 weeks for repairs.We will call her when aids are back from [employer] [facility] [id number] Miscellaneous Notes* Telephone Encounter - Denise Araiza RN - 03/30/2024 2:08 PM EDT Last OV 03/02/23 Pt will call to make appt Last CMP 12/18/22 Orders placed for BMP and Mg.slm documented in this encounterProMedica Defiance [facility] Hospital10-17-2024 Telephone encounter Note* Telephone Encounter - Denise Araiza RN - 03/30/2024 2:08 PM EDT Last OV 03/02/23 Pt will call to make appt Last CMP 12/18/22 Orders placed for BMP and Mg.slm [facility]04-13-2023 NoteCONSULTATION CONSULTATION DATE: 09/24/2022 TO: BERT Bill HISTORY: Patient presents today complaining of 0-7/10 pain in her left lower back pain, described as sharp in character, increased with activities such as standing, walking and performing transitioning maneuvers. She feels most comfortable in the semi-recumbent position. She currently uses baclofen on an as needed basis, and she uses this infrequently. She is no longer on Radom, since at least July. Her GERALDO on [...] our patients to inform us about any smea-pka-lemyfpv medications or herbal remedies/nutritional supplements/alternative remedies. 2. [...] and treatment options with their primary care provider.[facility] [id number] Note CONSULTATION CONSULTATION DATE: 08/20/2022 HISTORY OF [...] Medications include Celebrex 200 mg daily, multivitamin, Radom 5/325 daily p.r.n., Excedrin and baclofen 10 [...] L4, L5. She is to continue her Radom 5/325 daily p.r.n. and I highly encouraged her to use a heat rub and heat application once to twice daily. Patient agrees with this plan of care and will be brought back to the clinic thereafter.[facility] [id number] NotePAIN MANAGEMENT CONSULTATION CONSULTATION DATE: 07/23/2022 HISTORY OF PRESENT ILLNESS: [...] greatly aggravate her pain. Current medications include Radom 5/325 daily p.r.n., baclofen 10 mg q.h.s. [...] will be followed up in the office thereafter.[facility] [id number] NoteCONSULTATION CONSULTATION DATE: 06/23/2022 CHIEF COMPLAINT: Low back pain. HISTORY OF PRESENT ILLNESS: This is a 76-year-old female who is referred to us by Dr. Sal. The patient had, in the remote past, [...] possibility of a neurosurgical consult at [facility]. The patient's PAST MEDICAL HISTORY / [...] PLAN: We will start the patient on Radom 5/325 one tablet p.o. daily. The patient [...] understands and would like to proceed. CC: Adi Sal, [facility] Behavioral Medical Centeraluation noteNo assessment information availableSelect Medical Specialty Hospital [facility] Work Phone: Evaluation note* Diagnosis Metatarsal deformity, right- Primary Pain due to onychomycosis of toenails of both feet Metatarsal deformity, left documented in this encounter [facility] HealthcareEvaluation note* Diagnosis Coronary artery disease involving [place] coronary artery of [place] heart without angina pectoris- Primary documented in this encounter [facility] SystemEvaluation [facility]* Diagnosis Coronary artery disease involving [place] coronary artery of [place] heart without angina pectoris- Primary Pulmonary hypertension ([facility]) Other chronic pulmonary heart diseases Benign essential hypertension Essential hypertension, benign Dyslipidemia Other and unspecified hyperlipidemia Dyspnea on exertion Other dyspnea and respiratory abnormality documented in this encounter [facility] SystemEvaluation note* Diagnosis Metatarsal deformity, left- Primary Pain due to onychomycosis of toenails of both feet Metatarsal deformity, right documented in this encounter [facility] HealthcareInstructionsNot on filedocumented in this encounterProMedica Health SystemInstructionsNot on filedocumented in this encounterProMedica Health SystemInstructionsNot on filedocumented in this encounterProAcmc Healthcare System Glenbeighca Health SystemReason for referral (narrative)No reason for referral information availableWadsworth-Rittman Hospital Work Phone: Summary Purpose Family History Relationship Condition Age at Onset Recorded Date/T aleshia mother Myocardial infarction Unknown fatherMyocardial infarctionUnknownMalignant neoplasm of prostateUnknownbrother Myocardial infarctionUnknownsisterLeukemiaUnknownbrotherMalignant neoplasm of prostateUnknown Advance Directives Advance Directive Response Recorded Date/ Time Advance Directives No January 26, 2024 4:21pm TypeDate RecordedPatient RepresentativeExplanationLiving Will10/11/2015 2:28 PM Advance Directive Response Recorded Date/ Time Advance Directives No January 26, 2024 3:21pm Chief Complaint and Reason for Visit Chief Complaint refractory anemia ev al for mds Additional Source Comments INFORMATION SOURCE (unrecogn ized section and content) DATE CREATED AUTHOR 12/02/2017 [facility] DATE CREATED AUTHOR AUTHOR'S ORGANIZ ATION 11/20/2022 [facility] DATE CREATED AUTHOR AUTHOR'S ORGANIZ ATION 02/12/2024 [facility] DATE CREATED AUTHOR AUTHOR'S ORGANIZ ATION 09/17/2024 [facility] EPIC DATE CREATED AUTHOR AUTHOR'S ORGANIZ ATION 11/08/2024 [facility] Care Teams (unrecognized sec tion and content) Team Status: Active Member Role Status Dates Fatuma Medina APRN Primary Care Provider Active Team Status: Inactive Member Role Status Dates Claribel Pickett MD Attending Provider Active St art: February 07, 2024 End: February 07, 2024FaTeo Nguyen Care ProviderActiveStart: February 07, 2024 End: February 07, 2024Team MemberRelationshipSpecialtyStart DateEnd Date Adi Sal APRN-ELEVATOR [employer] [address] [place] [id number] PCP - GeneralPrimary Care06/01/22Team MemberRelationshipSpecialtyStart DateEnd Date Adi Sal APRN-ELEVATOR [employer] [address] [place] [id number] PCP - GeneralPrimary Care06/01/22Team MemberRelationshipSpecialtyStart DateEnd Date Fatuma Medina APRN-PHOTO PRINTER [address] [place] [address] PCP - GeneralFamily Othzgyfg89/25/24Team MemberRelationshipSpecialtyStart Date End Date Adi Sal DIRECTOR OF ACQUISITIONS-ELEVATOR CONSTRUCTOR [employer] [address] [place] [address] PCP - GeneralPrimary Care06/01/22Team MemberRelationshipSpecialtyStart DateEnd Date Unallocated, N[place] ProviderMD [address] [place] [phone] PCP - Generalmily Medicine09/14/24Team MemberRelationshipSpecialtyStart DateEnd Date Unallocated, Christel Edmond MD [address] [place], [place] [id number] PCP - [facility] Hospitalm[facility] Medicine09/14/24 Team Status: Active Member Role/Relationship Status Dates MARIA ESTHER CisseC Primary Care Provider Active Team Status: Inactive Member Role/Relationship Status Dates Adamaris Lester DO Attending Provider Active Sta rt: April 17, 2025 End: April 17MARIA ESTHER BalNovant Health New Hanover Orthopedic Hospitalry Care ProviderActiveStart: April 17, 2025 End: April 17, 2025 Goals (unrecognized section and content) Goals may be documented in a n alternate sectionNot on filedocumented as of this encounterNot on filedocumented as of this encounterNot on filedocumented as of this encounterNot on filedocumented as of this encounterGoals may be documented in an alternate section Reason for Visit (unrecogniz ed section and content) ReasonOnset DateCommentsHearing Aid Tmsjizb83/30/2024ReasonCommentsToenail Care Non dm nial careReasonOnset DateCommentsMed [id number] Follow-upEST PT F/U 1 YR L/S MAS, SCHED W/PTReasonCommentsToenail CareNon dm nail care FOR RECORDS PERTAINING TO [...] BE BASED ON THE PRIMARY CLINICAL RECORDS. [facility] [employer], [facility]. provides no warranty or guarantee of the accuracy or completeness of information in this document.
--- NOTE | 2025-05-22 14:38 | ED.EAR1 ---
HPI - Ear Problem General Chief complaint: Ear Stated complaint: EAR/JAW PAIN Time Seen by Provider: 05/22/25 09:40 Source: patient Mode of arrival: walk-in History of Present Illness HPI Narrative: Patient has been having some right ear pain and redness that she noticed over the last 2 to 3 days, associated also with the feeling that there is a creased hearing in the right ear, and she is feeling that her ear is warm, no fever no chills no other concerns The patient has not been able to put her hearing aid because of the tenderness at the area No drainage or discharge Related Data Home Medications ?Medication ?Instructions ?Recorded ?Confirmed aripiprazole 2 mg tablet 2 mg PO DAILY 01/18/23 03/06/25 alprazolam 1 mg tablet 1 mg PO .qhs anxiety 03/06/25 03/06/25 citalopram 20 mg tablet 20 mg PO DAILY 03/06/25 03/06/25 omeprazole 20 mg capsule,delayed 20 mg PO DAILY 03/06/25 03/06/25 release pravastatin 20 mg tablet 20 mg PO DAILY 03/06/25 03/06/25 Previous Rx's ?Medication ?Instructions ?Recorded torsemide 10 mg tablet 10 mg PO DAILY #30 tabs 03/08/25 amoxicillin 875 mg-potassium 1 tab PO Q12H #14 tabs 05/22/25 clavulanate 125 mg tablet ciprofloxacin HCl 0.2 % ear drops 5 drp otic (ear) BID 7 days #14 ea 05/22/25 in a dropperette meloxicam 7.5 mg tablet 7.5 mg PO DAILY PRN pain #10 tabs 05/22/25 Allergies Allergy/AdvReac Type Severity Reaction Status Date / Time adhesive tape Allergy Unknown Rash Verified 05/22/25 09:03 Review of Systems ROS Status of ROS 10 or more systems reviewed and unremarkable except as noted in history and below [facility] Medical History (Updated 05/22/25 @ 10:06 by Ranjana Anguiano MD) Cataract (lens) fragments in eye following cataract surgery ?H59.029 - Cataract (lens) fragments in eye following cataract surgery, unspecified eye (ICD-10) Breast cancer ?C50.919 - Malignant neoplasm of unspecified site of unspecified female breast (ICD-10) Surgical History (Updated 01/18/23 @ 13:32 by Nancy Delgado) History of lumpectomy of right breast ?Z98.890 - Other specified postprocedural states (ICD-10) H/O: hysterectomy ?Z90.710 - Acquired absence of both cervix and uterus (ICD-10) History of appendectomy ?Z90.49 - Acquired absence of other specified parts of digestive tract (ICD-10) Hx of tonsillectomy ?Z90.89 - Acquired absence of other organs (ICD-10) H/O section ?Z98.891 - History of uterine scar from previous surgery (ICD-10) History of musculoskeletal system surgery ?Z98.890 - Other specified postprocedural states (ICD-10) Family History (Updated 01/18/23 @ 13:34 by Nancy Delgado) Other Family history of cancer Heart disease Kidney disease Social History (Updated 01/18/23 @ 14:01 by Nancy Delgado) Within the past year, how often did you have a drink containing alcohol: 2-4 times a month Smoking status: Never smoker Non-prescribed substance use: denies use Previous occupational history: retired Highest level of school completed/degree received: high school graduate Little interest or pleasure in doing things: not at all Feeling down, depressed, or hopeless: not at all Exam Narrative Exam Narrative: Nurses notes and vital signs reviewed and patient is not hypoxic. General: Well-appearing and in no apparent distress. Skin: Warm, dry, no pallor noted. No rash. Head: Normocephalic, atraumatic. Right ear exam: The patient have redness of the right ear mostly the upper part it is a little bit warm there is no lesion that are seen and the external auditory canal is showing inflammation with tenderness on palpation the tympanic membrane shows fullness and serous fluid behind it No lesion or rash is seen Neurological: A&O x4. No cranial nerve dysfunction observed. No truncal ataxia. Moves all extremities. Sensation intact. Psychiatric: Cooperative and interactive. Normal mood and affect. Constitutional Vital Signs, click to edit/add: Last Vital Signs Temp 98.4 F 05/22/25 09:03 Pulse 82 05/22/25 09:03 Resp 18 05/22/25 09:03 BP 155/89 H 05/22/25 09:03 Pulse Ox 96 05/22/25 09:03 O2 Del Method Room Air 12/09/25 09:03 Course Vital Signs Vital signs: Vital Signs Temperature 98.4 F 05/22/25 09:03 Pulse Rate 82 05/22/25 09:03 Respiratory Rate 18 05/22/25 09:03 Blood Pressure 155/89 H 05/22/25 09:03 Pulse Oximetry 96 05/22/25 09:03 Oxygen Delivery Method Room Air 05/22/25 09:03 Temperature 98.4 F 05/22/25 09:03 Pulse Rate 82 05/22/25 09:03 Respiratory Rate 18 05/22/25 09:03 Blood Pressure 155/89 H 05/22/25 09:03 Pulse Oximetry 96 05/22/25 09:03 Oxygen Delivery Method Room Air 05/22/25 09:03 Medical Decision Making MDM Narrative Medical decision making narrative: The patient presentation mostly secondary to otitis media or possibly otitis externa combination Although right now I did explain to the patient that we need to make sure that she is not going to develop any shingles in that area and she need to make sure that in case of any rash that developed over the next few days she is to come back to the ER The patient was started on Augmentin as well as Cipro eardrop with instruction to come back to the ER in case of any progression of symptoms within 2 days Also Mobic for pain control The patient to follow-up with the primary care within 2 to 3 days and to come back to the ER in case of any worsening of the current symptoms or any new symptoms or concerns Discharge Plan Discharge Chief Complaint: Ear Clinical Impression: Otitis media, Otitis externa Patient Disposition: Home, Self-Care Time of Disposition Decision: 10:06 Prescriptions / Home Meds: New amoxicillin-pot clavulanate 875-125 mg tablet 1 tab PO Q12H Qty: 14 0RF meloxicam 7.5 mg tablet 7.5 mg PO DAILY PRN (Reason: pain) Qty: 10 0RF ciprofloxacin HCl 0.2 % dropperette 5 drp otic (ear) BID 7 Days Qty: 14 0RF Rx Instructions: Please you can replace with the 0.3% ophthalmic drops in case not present 5 drops in the right ear twice daily No Action aripiprazole 2 mg tablet 2 mg PO DAILY citalopram 20 mg tablet 20 mg PO DAILY pravastatin 20 mg tablet 20 mg PO DAILY alprazolam 1 mg tablet 1 mg PO .qhs omeprazole 20 mg capsule,delayed release(DR/EC) 20 mg PO DAILY torsemide 10 mg tablet 10 mg PO DAILY Qty: 30 1RF Print Language: Georgian Instructions: Swimmer's Ear (ED), Ear Infection (ED) Referrals: Guillermina Frazier NP [Primary Care Provider] - 1 week Discharge Date/Time: 05/22/25 10:30
== END 2025-05-22 10:30 | disposition home or self-care (01) ==
PROVIDERS: Emergency Provider Emergency Medicine
DX: H66.91 Otitis media, unspecified, right ear (principal); H60.91 Unspecified otitis externa, right ear
CPT/HCPCS: 96372; 99283; 99284; J1885